=== PATIENT | male | born 1940 | race Caucasian/White ===

== ENCOUNTER 2018-06-11 14:00 | Emergency (ER) | payer MEDICARE, OTHER ==
[~2018-06-11] VITALS: Ht 170.2 cm; Wt 77.1 kg
--- OUTSIDE RECORDS SUMMARY | ~2018-06-11 | XMS | Encounter Summary ---
Demographics + + + | Address | [address] | | | [place] [address] | + + + | Home Phone | | + + + | Preferred Language | Unknown | + + + | Marital Status | | + + + | Islam Affiliation | Unknown | + + + | Race | Unknown | + + + | Ethnic Group | Unknown | + + + Author + + + | Author | [facility] | | | and [place] | + + + | Organization | [facility] | | | and [place] | + + + | Address | Unknown | + + + | Phone | Unavailable | + + + Support + + + + + | Name | Relationship | Address | Phone | + + + + + | Guera Stark | ECON | [address] | | | | | [place] | | | | | [address] | | + + + + + Care Team Providers + +------+ + | Care Silk Screen Processor Name | Role | Phone | + +------+ + | Cesar Ojeda MD | PCP | | + +------+ + Reason for Visit + + + | Reason | Comments | + + + | Follow-up | | + + + | Coronary Artery | | | Disease | | + + + Encounter Details +--------+---------+ + + + | Date | Type | Department | Care Team | Description | +--------+---------+ + + + | 03/29/ | Office | [facility] | Franck Tsai MD | Coronary artery | | 2018 | Visit | CARDIOLOGY [address] | | disease involving | | | | [place], | | [place] coronary | | | | [place] [address] | | artery of [place] | | | | [phone] | | heart without angina | | | | | | pectoris (Primary | | | | | | Dx) | +--------+---------+ + + + Social History + +-------+ [...] + +---------+ + | Alcohol Use | Drinks/We | oz/Week | Comments | | | ek | | | + + +---------+ + | No | | | | + + +---------+ + + + + | Sex Assigned at | Date Recorded | | | | + + + | Not on file | | + + + as of this encounter Last Filed Vital Signs + + + + | Vital Sign | Reading | Time Taken | + + + + | Blood Pressure | 150/80 | 03/29/2018935 PDT | + + + + | Pulse | 58 | 03/29/2018935 PDT | + + + + | Temperature | - | - | + + + + | Respiratory Rate | 16 | 03/29/2018935 PDT | + + + + | Oxygen Saturation | - | - | + + + + | Inhaled Oxygen | - | - | | Concentration | | | + + + + | Weight | 78 kg (171 lb 15.3 | 03/29/2018935 PDT | | | oz) | | + + + + | Height | 170.2 cm (5' 7") | 03/29/2018935 PDT | + + + + | Body Mass Index | 26.93 | 03/29/2018935 PDT | + + + + in this encounter Functional Status + + [...] | | | + + + + as of this encounter Instructions Patient Instructions - Priscilla Durant RN - 03/29/2018 1000 PDT Increase Lisinopril to 20mg twice daily Finish out current supply of Clopidogrel (Plavix) then stop. Follow up appointment: 1 year - we will call you to arrange this appointment closer to the due date. Provider: Franck Tsai MD Date: Check-In Time: in this encounter Progress Notes Franck Tsai MD - 03/29/2018 1000 PDTFormatting of this note may be different from the o riginal. PATIENT NAME: Lokesh Stark : 1940: AGE: 77 y.o. PRIMARY CARE: Cesar Ojeda MD CARDIOLOGY CLINIC PROGRESS NOTE Mr. Stark presents for outpatient follow-up. Since his visit of , he has been sta ble from a cardiac viewpoint without complaints of chest pain nor dyspnea. The patient has had some bruising of his skin with minor contact. He continues on dual antiplatelet therapy and is status post LIU to right posterior sending artery in 2015 and LIU to saphenous vein graft to right coronary artery in December 2016. Lipid profile dated 11/01/17: Total cholester ol 109 triglyceride 119 HDL 30 calculated LDL 55, hemoglobin A1c 6.5 MEDICATIONS: Current Outpatient Prescriptions Medication Sig Dispense Refill artificial tears (REFRESH PLUS) 0.5% SOLN Place 1 drop into both eyes every 4 hours as needed (dry eyes). Ascorbic Acid (VITAMIN C) 1000 MG tablet Take 1,000 mg by mouth Daily. aspirin 81 mg chewable tablet Take 1 tablet by mouth Daily. 30 tablet atorvaSTATin (LIPITOR) 80 MG tablet Take 80 mg by mouth nightly. cetirizine (ZYRTEC) 10 mg tablet Take 10 mg by mouth Daily. As needed. cholecalciferol (VITAMIN D-3) 2000 UNITS TABS Take 2,000 Units by mouth Daily. ferrous sulfate 325 mg tablet Take 325 mg by mouth daily (with breakfast). fish oil 1,000 mg capsule Take 1,000 mg by mouth 2 times daily. folic acid (FOLVITE) 400 MCG tablet Take 400 mcg by mouth Daily. lisinopril (PRINIVIL, ZESTRIL) 20 mg tablet Take 1 tablet by mouth 2 times daily. 180 t ablet 3 metFORMIN (GLUCOPHAGE-XR) 500 mg 24 hr tablet Take 500 mg by mouth 2 times daily. Patie nt is taking two Twice a day Multiple Vitamins-Minerals (CENTRUM SILVER ULTRA MENS) TABS Take 1 tablet by mouth Dave y. nitroglycerin (NITROSTAT) 0.[address] 1 tablet under the tongue every 5 mya jacki as needed for Chest pain. 25 tablet 0 omeprazole (PRILOSEC) 20 mg capsule Take 20 mg by mouth every morning (before breakfast ). ONE TOUCH ULTRA TEST strip 99 ONETOUCH DELICA LANCETS FINE MISC 99 No current facility-administered medications for this visit. ALLERGIES Allergies Allergen Reactions Aspartame Hives and Nausea And Vomiting Cat Hair Extract Sensitivity Itching eye, runny nose Vegetable Oil Sensitivity Severe congestion Penicillins Other (See Comments) "I went numb all over after an injection" PHYSICAL EXAM Vital signs: Vitals: 03/29/18 0936 BP: 150/80 Pulse: 58 Resp: 16 Admit Weight: Weight: 78 kg (171 lb 15.3 oz) Current weight: Weight: 78 kg (171 lb 15.3 oz) Body mass index is 26.93 kg/m. General: Resting comfortably Chest: Clear Cardiovascular: Nondisplaced apical impulse, regular rhythm, normal S1 and S2, no S3, jugul ar venous pressure normal Gastrointestinal: Abdomen soft, non-tender, normal bowel sounds, no organomegaly nor masses . Extremities: No edema Neuro: within normal LABS: Abstract on 03/29/2018 Component Date Value Ref Range Status VLDL Cholesterol Leland 11/01/2017 3.6* 4 - 40 Final Abstract on 03/29/2018 Component Date Value Ref Range Status LDL Cholesterol, External 11/01/2017 55 Final Cholesterol, Total, External 11/01/2017 109 mg/dl Final HDL Cholesterol, External 11/01/2017 30.4 mg/dl Final Triglycerides, External 11/01/2017 119 Final Office Visit on 03/29/2018 Component Date Value Ref Range Status VENTRICULAR RATE EKG 03/29/2018 55 BPM Final ATRIAL RATE 03/29/2018 55 BPM Final P-R INTERVAL 03/29/2018 158 ms Final QRS DURATION 03/29/2018 88 ms Final Q-T INTERVAL 03/29/2018 418 ms Final Q-T INTERVAL (CORRECTED) 03/29/2018 399 ms Final P WAVE AXIS 03/29/2018 52 degrees Final QRS AXIS 03/29/2018 -48 degrees Final T AXIS 03/29/2018 141 degrees Final INTERPRETATION TEXT 03/29/2018 Final Value:Sinus bradycardia Left anterior fascicular block Inferior infarct (cited on or before 25-DEC-2016) Abnormal ECG When compared with ECG of 26-DEC-2016 04:18, Left anterior fascicular block is now present T wave inversion no longer evident in Inferior leads Confirmed by RYLAN DE SANTIAGO, [facility] ([id number]) on 03/29/2018 2:25:28 PM IMAGING: No results found. Resting ECG 03/29/18: Sinus bradycardia 55 bpm, left axis deviation, old inferior infarctio n, diffuse nonspecific T-wave abnormality, when compared with prior ECG dated 12/26/16, the inferior and anterior lateral T-wave inversions are now either flat or upright DIAGNOSES AND ASSESSMENTS: 1. Coronary atherosclerosis: The patient is clinically stable status post PCI in 2016 in [facility] 2017. We discussed the duration of dual antiplatelet therapy and given his ongoing brui sing I told the patient he may discontinue his clopidogrel when he is out of his current sup ply. He will continue on low-dose aspirin. 2. Dyslipidemia: Patient's lipid levels are at an excellent range. PLAN OR RECOMMENDATIONS: Discontinue clopidogrel after current supply is finished, continue on low-dose aspirin i ndefinitely Home blood pressure monitoring, whole food plant-based diet, aerobic exercise Clinic follow-up 1 year or sooner as needed I appreciate the opportunity of participating in the care of this patient. Franck Tsai MD, 03/30/2018 11:59 in this encounter Plan of Treatment Not on fileas of this encounter Procedures + +--------+ + + + | Procedure Name | Priori | Date/Time | Associated Diagnosis | Comments | | | ty | | | | + +--------+ + + + | ECG 12 LEAD | Routin | 03/29/2018 | Coronary artery | Results for this | | | e | 0940 PDT | disease involving | procedure are in the | | | | | [place] coronary | results section. | | | | | artery of [place] | | | | | | heart without angina | | | | | | pectoris | | + +--------+ + + + in this encounter Results ECG 12 lead (03/29/201840) + + + + + | Component | Value | Ref Range | Performed At | + + + + + | VENTRICULAR RATE EKG | 55 | BPM | [facility] | + + + + + | ATRIAL RATE | 55 | BPM | [facility] | + + + + + | P-R INTERVAL | 158 | ms | [facility] | + + + + + | QRS DURATION | 88 | ms | [facility] | + + + + + | Q-T INTERVAL | 418 | ms | [facility] | + + + + + | Q-T INTERVAL | 399 | ms | [facility] | | (CORRECTED) | | | | + + + + + | P WAVE AXIS | 52 | degrees | [facility] | + + + + + | QRS AXIS | -48 | degrees | [facility] | + + + + + | T AXIS | 141 | degrees | [facility] | + + + + + | INTERPRETATION TEXT | Sinus bradycardiaLeft | | [facility] | | | anterior fascicular | | | | | blockInferior infarct | | | | | (cited on or before | | | | | 25-DEC-2016)Abnormal | | | | | ECGWhen compared with | | | | | ECG of 26-DEC-2016 | | | | | 04:18,Left anterior | | | | | fascicular block is now | | | | | presentT wave inversion | | | | | no longer evident in | | | | | Inferior leadsConfirmed | | | | | by AMINA FAGAN MD | | | | | ([id number]) on 03/29/2018 | | | | | 2:25:28 PM | | | + + + + + + + + | Narrative | Performed At | + + + | | | + + + + +---------+ + + | Performing | Address | City/State/Zipcode | Phone Number | | Organization | | | | + +---------+ + + | [facility] | | | | + +---------+ + + in this encounter Visit Diagnoses + + | Diagnosis | + + | Coronary artery disease involving [place] coronary artery of [place] heart without angina | | pectoris - Primary | + +
--- OUTSIDE RECORDS SUMMARY | ~2018-06-11 | XMS | Encounter Summary ---
Demographics + + + | Address | [address] | | | [place] [address] | + + + | Home Phone | | + + + | Preferred Language | Unknown | + + + | Marital Status | | + + + | Holiness Affiliation | Unknown | + + + | Race | Unknown | + + + | Ethnic Group | Unknown | + + + Author + + + | Author | [facility] | | | and [place] | + + + | Organization | [facility] | | | and [...] [place] | | | | | [address] | | + + + + + Care Team Providers + +------+ + | Care Insurance Claims Clerk Name | Role | Phone | + +------+ + | Cesar Ojeda MD | PCP | | + +------+ + Encounter Details +--------+ + + + + | Date | Type | Department | Care Team | Description | +--------+ + + + + | 03/29/ | Abstract | [facility] [place] | Franck Tsai MD | | | 2018 | | CARDIOLOGY [address] | | | | | | [place], | | | | | | [place] [address] | | | | | | [phone] | | | +--------+ + + + [...] + + + as of this encounter Functional Status + [...] + + + as of this encounter Plan of Treatment Not on fileas of this encounter Procedures + +--------+ + + + | Procedure Name | Priori | Date/Time | Associated Diagnosis | Comments | | | ty | | | | + +--------+ + + + | LIPID PANEL | Routin | 11/01/2017 | | Results for this | | | e | 0000 PST | | procedure are in the | | | | | | results section. | + +--------+ + + + in this encounter Results Lipid Panel (11/01/2017) + +---------+ + + | Component | Value | Ref Range | Performed At | + +---------+ + + | VLDL Cholesterol Leland | 3.6 (A) | 4 - 40 | | + +---------+ + + | Chol/HDL Ratio | | | | + +---------+ + + + + | Specimen | + + | Blood | + + in this encounter Visit Diagnoses Not on filein this encounter"
--- OUTSIDE RECORDS SUMMARY | ~2018-06-11 | XMS | Clinical Summary ---
Demographics + + + | Address | [address] | | | [place] [address] | + + + | Home Phone [...] + | Author | [facility] | | | and [place] | + + + | Organization | [facility] | | | and [...] [place] | | | | | [address] | | + + + + + Care Team Providers + +------+ + | Care Tree Feller Operator Name | Role | Phone | [...] | + + + + + + Current Medications + + +--------+---------+------+------+-------+ | Prescription | Sig. | Disp. | Refills | Star | End | Statu | | | | | | t | Date | s | | | | | | Date | | | + + +--------+---------+------+------+-------+ | fish oil 1,000 mg | Take 1,000 mg by | | | | | Activ | | capsule | mouth 2 times daily. | | | | | e | + + +--------+---------+------+------+-------+ | atorvaSTATin | Take 80 mg by mouth | | | | | Activ | | (LIPITOR) 80 MG | nightly. | | | | | e | | tablet | | | | | | | + + +--------+---------+------+------+-------+ | omeprazole | Take 20 mg by mouth | | | | | Activ | | (PRILOSEC) 20 mg | every morning | | | | | e | | capsule | (before breakfast). | | | | | | + + +--------+---------+------+------+-------+ | cetirizine | Take 10 mg by mouth | | | | | Activ | | (ZYRTEC) 10 mg | Daily. As needed. | | | | | e | | tablet | | | | | | | + + +--------+---------+------+------+-------+ | nitroglycerin | Place 1 tablet under | 25 | 0 | 09/1 | | Activ | | (NITROSTAT) 0.4 mg | the tongue every 5 | tablet | | 2/20 | | e | | SL tablet | minutes as needed | | | 16 | | | | | for Chest pain. | | | | | | + + +--------+---------+------+------+-------+ | folic acid | Take 400 mcg by | | | | | Activ | | (FOLVITE) 400 MCG | mouth Daily. | | | | | e | | tablet | | | | | | | + + +--------+---------+------+------+-------+ | cholecalciferol | Take 2,000 Units by | | | | | Activ | | (VITAMIN D-3) 2000 | mouth Daily. | | | | | e | | UNITS TABS | | | | | | | + + +--------+---------+------+------+-------+ | Ascorbic Acid | Take 1,000 mg by | | | | | Activ | | (VITAMIN C) 1000 MG | mouth Daily. | | | | | e | | tablet | | | | | | | + + +--------+---------+------+------+-------+ | Multiple | Take 1 tablet by | | | | | Activ | | Vitamins-Minerals | mouth Daily. | | | | | e | | (CENTRUM SILVER | | | | | | | | ULTRA MENS) TABS | | | | | | | + + +--------+---------+------+------+-------+ | metFORMIN | Take 500 mg by mouth | | | | | Activ | | (GLUCOPHAGE-XR) 500 | 2 times daily. | | | | | e | | mg 24 hr tablet | Patient is taking | | | | | | | | two Twice a day | | | | | | + + +--------+---------+------+------+-------+ | ferrous sulfate | Take 325 mg by mouth | | | | | Activ | | 325 mg tablet | daily (with | | | | | e | | | breakfast). | | | | | | + + +--------+---------+------+------+-------+ | artificial tears | Place 1 drop into | | | | | Activ | | (REFRESH PLUS) 0.5% | both eyes every 4 | | | | | e | | SOLN | hours as needed (dry | | | | | | | | eyes). | | | | | | + + +--------+---------+------+------+-------+ | aspirin 81 mg | Take 1 tablet by | 30 | | 03/0 | | Activ | | chewable tablet | mouth Daily. | tablet | | 8/20 | | e | | | | | | 17 | | | + + +--------+---------+------+------+-------+ | ONE TOUCH ULTRA | | | 99 | 02/1 | | Activ | | TEST strip | | | | 7/20 | | e | | | | | | 17 | | | + + +--------+---------+------+------+-------+ | MANUEL ESCALANTE | | | 99 | 02/1 | | Activ | | NORMA RAMIREZ MISC | | | | 7/20 | | e | | | | | | 17 | | | + + +--------+---------+------+------+-------+ | lisinopril | Take 1 tablet by | 180 | 3 | 06/0 | | Activ | | (PRINIVIL, ZESTRIL) | mouth 2 times daily. | tablet | | 05/11 | | e | | 20 mg tablet | | | | 18 | | | + + +--------+---------+------+------+-------+ Active Problems + + + | Problem | Noted Date | + + + | Status post insertion of drug eluting coronary artery stent | 12/28/2016 | + + + | ST elevation myocardial infarction (STEMI) of inferior wall, | 12/25/2016 | | initial episode of care (HCC) | | + + + | Dyslipidemia | 07/04/2016 | + + + | NSTEMI (non-ST elevated myocardial infarction) (HCC) | 07/03/2016 | + + + | S/P CABG x 4 | 07/03/2016 | + + + + + | Overview: MARQUEZ to LAD | | SVG to PDA | | SVG to Diag | | SVG to OMB | + + + +---+ | Malignant neoplasm of bladder (HCC) | | + +---+ | Coronary atherosclerosis | | + +---+ | Diabetes type 2, controlled (HCC) | | + +---+ | Benign essential hypertension | | + +---+ Encounters +--------+ + + + + | Date | Type | Specialty | Care Team | Description | +--------+ + + + + | 03/29/ | Office | | Franck Tsai MD | Coronary artery | | 2018 | Visit | | | disease involving | | | | | | [place] coronary | | | | | | artery of [place] | | | | | | heart without angina | | | | | | pectoris (Primary | | | | | | Dx) | +--------+ + + + + | 03/29/ | Abstract | | Franck Tsai MD | | | 2017 | | | | | +--------+ + + + + | 03/29/ | Abstract | | Franck Tsai MD | | | 2017 | | | | | +--------+ + [...] Temperature | 36.4 C (97.5 F) | 12/28/2016732 PST | + + + + | Respiratory Rate | 16 | 03/29/2018935 PDT | + + + + | Oxygen Saturation | 94% | 12/28/2016732 PST | + + + + | Inhaled [...] Body Mass Index | 26.93 | 03/29/2018 0936 PDT | + + + + Plan of Treatment + + + + + | Health Maintenance | Due Date | Last Done | Comments | + + + + + | Diabetic Eye Exam | | | | | (Bi-Annually) | 0 | | | + + + + + | Diabetic Foot Exam | | | | | | 0 | | | + + + + + | Vaccine: | | | | | Dtap/Tdap/Td (1 - | 1 | | | | Tdap) | | | | + + + + + | Colorectal Cancer | | | | | Screening | 2 | | | | (Colonoscopy) | | | | + + + + + | Vaccine: | | | | | Pneumococcal 65+ | 7 | | | | High/Highest Risk (1 | | | | | of 2 - PCV13) | | | | + + + + + | Hemoglobin A1c Q3 | | 08/01/2016 | | | Months | 7 | | | + + + + + | Vaccine: Influenza | | | | | (#1) | 8 | | | + + + + + Implants + +-------+--------+ +--------+--------+--------+ | Implanted | Type | Area | Manufacture | Device | Expira | Model | | | | | r | | tion | / | | | | | | Identi | Date | Serial | | | | | | fier | | / Lot | + +-------+--------+ +--------+--------+--------+ | Rebel Bare Metal | Stent | N/A: | BOSTON | | 03/22/ | / | | StentImplanted: Qty: 1 on | | Miguel Ángel | SCIENTIFIC | | 2018 | [id number] | | 07/03/2016 by Mi Mulligan | | lolita | GREGORY - BSCI | | | 081 | | MD Dionicio | | | | | | | + +-------+--------+ +--------+--------+--------+ | Promus PremierImplanted: Qty: | Stent | N/A: | [employer]ON | | 10/04/ | [id number] | | 1 on 12/25/2016 by Ese | Jose Antonio Del Rosario | SCIENTIFIC | | 2016 | [id number] | | Mi Greenberg MD | | ry | GREGORY - BSCI | | | 50 / | | | | | | | | /[id number] | | | | | | | | 882 | + +-------+--------+ +--------+--------+--------+ | Stent Uro Unvrs Sft 6fr 26cm | | Right: | FREDA BARBA | | | [id number] | | - [id number]: Qty: 1 | | | INCORPORATE | | | / | | on 12/11/2015 by Lyndon Romero | | Ureter | D | | | /[id number] | | MD Juancarlos | | | [...] in the | | | | | [place] coronary | results section. | | | | | artery of [place] | | | | | | heart without angina | | | | | | pectoris | | + +--------+ + + + from Last 3 Months Results ECG 12 lead (03/29/2018939) + + + + + | Component | Value | Ref Range | Performed At | + + + + + | VENTRICULAR RATE EKG | 55 | BPM | [facility] | + + + + + | ATRIAL RATE | 55 | BPM | [facility] | + + + + + | P-R INTERVAL | 158 | ms | [facility] | + + + + + | QRS DURATION | 88 | ms | [facility] | + + + + + [...] FAGAN MD | | | | | ([id number]) on 03/29/2018 | | | | | [...] | | | + +---------+ + + from Last 3 Months Insurance + +--------+ +--------+ + + | Payer | Benefi | Subscriber | Type | Phone | Address | | | t Plan | ID | | | | | | / | | | | | | | Group | | | | | + +--------+ +--------+ + + | MEDICARE | MEDICA | [id number] | Medica | [phone]- | | | | RE | | re | [phone] | | | | PART A | | | | | | | AND B | | | | | + +--------+ +--------+ + + | MODA | MODA | [id number] | Indemn | [phone] [address] [address] | | | HEALTH | | ity | [phone] | [place] [address] | | | MDCR | | | | | | | SUPPL | | | | | + +--------+ +--------+ + + + +--------+ +--------+ + + | Guarantor Name | Accoun | Relation to | Date | Phone | Billing Address | | | t Type | Patient | of | | | | | | | | | | + +--------+ +--------+ + + | MARGARITO STARK | Person | Self [birth year] | 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
--- OUTSIDE RECORDS SUMMARY | ~2018-06-11 | XMS | Clinical Summary ---
Demographics + + + | Address | [address] | | | [place] [address] | + + + | Home Phone | | + + + | Preferred Language | Unknown | + + + | Marital Status | | + + + | Jewish Affiliation | Unknown | + + + | Race | Unknown | + + + | Ethnic Group | Unknown | + + + Author + + + | Author | [facility] | | | and [place] | + + + | Organization | [facility] | | | and [place] [...] [place] | | | | | [address] | | + + + + + Care Team Providers + +------+ + | Care Sales Service Rep Name | Role | Phone | + [...] involving | | | | | | [place] coronary | | | | | | artery of [place] | | | | | | heart [...] Ángel | SCIENTIFIC | | 2018 | /[id number] | | 07/03/2016 by Mi Mulligan | | lolita | GREGORY - BSCI | | | 081 | | MD Dionicio | | | | | | | + +-------+--------+ +--------+--------+--------+ | Promus PremierImplanted: Qty: | Stent | N/A: | [place] | | 10/04/ | [id number] | | 1 on 12/25/2016 by Ese | Jose Antonio Del Rosario | SCIENTIFIC | | 2016 | [id number] | | Mi Greenberg MD | | ry | GREGORY - BSCI | | | 50 / | | | | | | | | /[id number] | | | | | | | | 882 | + +-------+--------+ +--------+--------+--------+ | Stent Uro Unvrs Sft 6fr 26cm | | Right: | FREDA BARBA | | | [id number] | | - [id number]: Qty: 1 | | | INCORPORATE | | | / | | on 12/11/2015 by Lyndon Romero | | Ureter | D | | | /[id number] | | MD Juancarlos | | | [...] in the | | | | | [place] coronary | results section. | | | | | artery of [place] | | | | | | heart [...] FAGAN MD | | | | | ([id number]) on 03/29/2018 | | | | | [...] + + | MEDICARE | MEDICA | [id number] | Medica | [phone]- | | | | RE | | re | [phone] | | | | PART A | | | | | | | AND B | | | | | + +--------+ +--------+ + + | MODA | MODA | [id number] | Indemn | [phone] [address] [address] | | | HEALTH | | ity | [address] | [place] [address] | | | MDCR | | | [...] [place] | | | [address] Home: | [phone] | | | | | | | | | | | | | [phone] | | | | | | | [phone] | | + +--------+ +--------+ + +
--- OUTSIDE RECORDS SUMMARY | ~2018-06-11 | XMS | Clinical Summary ---
Demographics + + + | Address | [address] | | | [place] [address] | + + + | Home Phone | | + + + | Preferred Language | Unknown | + + + | Marital Status | | + + + | Hoahaoism Affiliation | Unknown | + + + | Race | Unknown | + + + | Ethnic Group | Unknown | + + + Author + + + | Author | [facility] | + + + | Organization | [facility] | + + + | Address | Unknown | + + + | Phone | Unavailable | + + + Support + + + + + | Name | Relationship | Address | Phone | + + + + + | Guera Stark | ECON | [address] | | | | | [place], | | | | | [place] [address] | | + + + + + Care Team Providers + +------+ + | Care Flake Or Shred Roll Operator Name | Role | Phone | [...]
--- OUTSIDE RECORDS SUMMARY | ~2018-06-11 | XMS | Clinical Summary ---
Demographics + + + | Address | [address] | | | [place] [address] | + + + | Home Phone | | + + + | Preferred Language | Unknown | + + + | Marital Status | | + + + | Yarsanism Affiliation | Unknown | + + + | Race | Unknown | + + + | Ethnic Group | Unknown | + + + Author + + + | Author | [facility] | + + + | Organization | [facility] | + + + | Address | Unknown | + + + | Phone | Unavailable | + + + Support + + + + + | Name | Relationship | Address | Phone | + + + + + | Guera Stark | ECON | [address] | | | | | [place], | | | | | [place] [address] | | + + + + + Care Team Providers + +------+ + | Care Pellet Mill Operator Name | Role | Phone | [...]
--- OUTSIDE RECORDS SUMMARY | ~2018-06-11 | XMS | Encounter Summary ---
Demographics + + + | Address | [address] | | | [place] [address] | + + + | Home Phone | | + + + | Preferred Language | Unknown | + + + | Marital Status | | + + + | Mosque Affiliation | Unknown | + + + | Race | Unknown | + + + | Ethnic Group | Unknown | + + + Author + + + | Author | [facility] | | | and [place] | + + + | Organization | [facility] | | | and [...] [place] | | | | | [address] | | + + + + + Care Team Providers + +------+ + | Care Sleeve Maker Name | Role | Phone | [...] [place], | | | | | | [place] [address] | | | | | | [phone] | | | +--------+ + + + [...]
--- OUTSIDE RECORDS SUMMARY | ~2018-06-11 | XMS | Encounter Summary ---
Demographics + + + | Address | [address] | | | [place] [address] | + + + | Home Phone | | + + + | Preferred Language | Unknown | + + + | Marital Status | | + + + | Advent Affiliation | Unknown | + + + | Race | Unknown | + + + | Ethnic Group | Unknown | + + + Author + + + | Author | [facility] | | | and [place] | + + + | Organization | [facility] | | | and [place] | + + + | Address | Unknown | + + + | Phone | Unavailable | + + + Support + + + + + | Name | Relationship | Address | Phone | + + + + + | Guera Satrk | ECON | [address] | | | | | [place] | | | | | [address] | | + + + + + Care Team Providers + +------+ + | Care Crap Game Box Person Name | Role | Phone | + [...] [place], | | | | | | [place] [address] | | | | | | [phone] | | | +--------+ + + + [...] this | | TRIGLYCERIDES | e | 0000 PST | | procedure are in the | | | | | | results section. | + +--------+ + + + | EXTERNAL LAB: | Routin | 11/01/2017 | | Results for this | | CHOLESTEROL, HDL | e | 0000 PST | | procedure are in the | | | | | | results section. | + +--------+ + + + | EXTERNAL LAB: | Routin | 11/01/2017 | | Results for this | | CHOLESTEROL, TOTAL | e | 0000 PST | | procedure are in the | | | | | | results section. | + +--------+ + + + | EXTERNAL LAB: | Routin | 11/01/2017 | | Results for this | | CHOLESTEROL, LDL | e | 0000 PST | | procedure are in the | | | | | | results section. | + +--------+ + + + | LIPID PANEL | Routin | 11/01/2017 | | | | | e | 0000 PST | | | + +--------+ + + + in this encounter Results Lipid Panel (11/01/2017) + + | Specimen | + + | Blood | + + External Lab: Triglycerides (11/01/2017) + +-------+ + + | Component | Value | Ref Range | Performed At | + +-------+ + + | Triglycerides, | 119 | | | | External | | | | + +-------+ + + + + | Specimen | + + | Blood | + + External Lab: Cholesterol, HDL (11/01/2017) + +-------+ + + | Component | Value | Ref Range | Performed At | + +-------+ + + | HDL Cholesterol, | 30.4 | mg/dl | | | External | | | | + +-------+ + + + + | Specimen | + + | Blood | + + External Lab: Cholesterol, Total (11/01/2017) + +-------+ + + | Component | Value | Ref Range | Performed At | + +-------+ + + | Cholesterol, Total, | 109 | mg/dl | | | External | | | | + +-------+ + + + + | Specimen | + + | Blood | + + External Lab: Cholesterol, LDL (11/01/2017) + +-------+ + + | Component | Value | Ref Range | Performed At | + +-------+ + + | LDL Cholesterol, | 55 | | | | External | | | | + +-------+ + + + + | Specimen | + + | Blood | + + in this encounter Visit Diagnoses Not on filein this encounter"
--- OUTSIDE RECORDS SUMMARY | ~2018-06-11 | XMS | Encounter Summary ---
Demographics + + + | Address | [address] | | | [place] [address] | + + + | Home Phone [...] + | Author | [facility] | | | and [place] | + + + | Organization | [facility] | | | and [place] [...] [place] | | | | | [address] | | + + + + + Care Team Providers + +------+ + | Care Brush Machine Setter Name | Role | Phone | + [...] + + | 03/29/ | Office | [facility] | Franck Tsai MD | Coronary artery | | 2018 | Visit | CARDIOLOGY [address] | | disease involving | | | | [place], | | lovelock coronary | | | | [place] [address] | | artery of lovelock | | | | [phone] | | heart without angina | | [...] Inferior leads Confirmed by RYLAN DE SANTIAGO, [facility] ([id number]) on 03/29/2018 2:25:28 PM IMAGING: No results found. Resting ECG 03/29/18: Sinus bradycardia 55 bpm, left axis deviation, old inferior infarctio n, diffuse nonspecific T-wave abnormality, when compared with prior ECG dated 12/26/16, the inferior and anterior lateral T-wave inversions are now either flat or upright DIAGNOSES AND ASSESSMENTS: 1. Coronary atherosclerosis: The patient is clinically stable status post PCI in 2016 in [facility] 2017. We discussed the duration of [...] in the | | | | | lovelock coronary | results section. 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
--- OUTSIDE RECORDS SUMMARY | ~2018-06-11 | XMS | Encounter Summary ---
Demographics + + + | Address | [address] | | | [place] [address] | + + + | Home Phone [...] | Author | [facility] | | | and [place] | + + + | Organization | [facility] | | | and [place] [...] [place] | | | | | [address] | | + + + + + Care Team Providers + +------+ + | Care Venetian Blind Maker Name | Role | Phone | [...] [place], | | | | | | [place] [address] | | | | | | [phone] | | | +--------+ + + + [...]
[~2018-06-11 14:00] MED LIST: ASPIR 8181 MG PO; CENTRUM SILVER1 EAC1 PO; CIPRO500 MG PO; FENOFIBRATE160 MG PO; FISH OIL500 MG PO; FLAGYL500 MG PO; FOLIC ACID1 MG PO; GLIPIZIDE XL10 MG PO; IRON325 M1 PO; LEVAQUIN500 MG PO; LIPITOR80 MG PO; LISINOPRIL10 MG PO; LISINOPRIL20 MG PO; METFORMIN HCL500 M2 PO; METFORMIN HCL500 MG PO; NITROFURANTOIN100 M1 PO; NORCO 5-325 TA1 EACH PO; OMEGA 3-6-9 11200 M1 PO; PERCOCET 5-3251 EACH PO; PRILOSEC OTC20 MG PO; PUMPKIN SEED PO; PYRIDIUM200 MG PO; SAW PALMETTO 1160 MG PO; SAW PALMETTO80 MG PO; TAMSULOSIN HCL0.4 MG PO; VITAMIN D35000 UNI1 PO; VITAMIN D5000 UNIT PO; [UNRECOGNIZED DRUG - OTHER] PO
--- NOTE | 2018-06-12 18:22 | EKG ---
[facility] [address] [place] [address] Signed Atrial fibrillation with premature ventricular or aberrantly conducted complexes Inferior infarct , possibly acute Marked ST abnormality, possible anteroseptal subendocardial injury ACUTE MS / STEMI Consider right ventricular involvement in acute inferior infarct Abnormal ECG When compared with ECG of 02-JUL-2016 16:04, Significant changes have occurred Confirmed by MISBAH CHIRINOS DO ([id number]) on 06/12/2018 6:22:11 PM Electronically Signed By: MISBAH CHIRINOS DO 06/12/18 1822 PATIENT NAME: MARGARITO HERRING Electrocardiogram DATE OF : 44 PHYSICIAN: MISBAH CHIRINOS DO REPORT #: [id number] REPORT IS CONFIDENTIAL AND NOT TO BE RELEASED WITHOUT AUTHORIZATION
== END 2018-06-11 14:43 | disposition short-term general hospital (02) ==
LOC: ED 14:00
DX: I21.19 ST elevation (STEMI) myocardial infarction involving other coronary artery of inferior wall (principal); I47.2 Ventricular tachycardia; Z87.891 Personal history of nicotine dependence; Z88.0 Allergy status to penicillin; Z88.8 Allergy status to other drugs, medicaments and biological substances; Z79.82 Long term (current) use of aspirin; Z79.84 Long term (current) use of oral hypoglycemic drugs; Z79.899 Other long term (current) drug therapy
CPT/HCPCS: 71045; 80053; 84484; 85025; 93005; 93010; 96374; 96375; 99285; J0282; J1644

== ENCOUNTER 2019-03-23 12:59 | Emergency (ER) | payer MEDICARE, OTHER ==
[~2019-03-23] VITALS: Ht 170.2 cm; Wt 71.2 kg
--- OUTSIDE RECORDS SUMMARY | ~2019-03-23 | XMS | Clinical Summary ---
Demographics + + + | Address | [address] | | | [place] [address] | + + + | Home Phone | | + + + | Preferred Language | Unknown | + + + | Marital Status | | + + + | Methodist Affiliation | Unknown | + + + | Race | Unknown | + + + | Ethnic Group | Unknown | + + + Author + + + | Author | [facility] | + + + | Organization | [facility] | + + + | Address | Unknown | + + + | Phone | Unavailable | + + + Support + + + + + | Name | Relationship | Address | Phone | + + + + + | Guera Stark | ECON | [address] | | | | | [place], | | | | | [place] [address] | | + + + + + Care Team Providers + +------+ + | Care Physician Office Specialist Name | Role | Phone | + +------+ + | Joaquín Johnson DO | PP | | + +------+ + Allergies Not on File Current Medications Not on file Active Problems Not on file Social History + +-------+ +--------+------+ | Tobacco [...] on file | | + + + Plan of Treatment Not on file Results Not on filefrom Last 3 Months"
--- OUTSIDE RECORDS SUMMARY | ~2019-03-23 | XMS | Clinical Summary ---
Demographics + + + | Address | [address] | | | [place] [address] | + + + | Home Phone | | + + + | Preferred Language | Unknown | + + + | Marital Status | | + + + | Scientology Affiliation | Unknown | + + + | Race | Unknown | + + + | Ethnic Group | Unknown | + + + Author + + + | Author | [facility] | | | and [place] | + + + | Organization | [facility] | | | and [place] | [...] [place] | | | | | [address] | | + + + + + | Roselia Hayes | ECON | Unknown | | + + + + + Care Team Providers + +------+ + | Care Rib Cloth Knitter Name | Role | Phone | + +------+ + | Cesar Ojeda MD | PP | | + +------+ + Allergies + [...] | Penicillins | Other (See Comments) | Low | 12/10/19 | "I went numb all [...] + + + +---------+------+------+-------+ | nitroglycerin | Place 1 tablet under | 25 | 0 | 09/1 | | Activ | | (NITROSTAT) 0.4 mg | the tongue every 5 | tablet | | 2/20 | | e | | SL tablet | minutes as needed | | | 16 | | | | | for Chest pain. | | | | | | + [...] + + +---------+------+------+-------+ | metFORMIN | Take 1,500 mg by | | 0 | | | Activ | | (GLUCOPHAGE-XR) 500 | mouth Daily. | | | | | e | | mg 24 hr tablet | | | | | [...] | TEST strip | | | | 7/20 | | e | | | | | | 17 | | | + + + +---------+------+------+-------+ | ONETOUCH DELICA | | | 99 | 02/1 | | Activ | | NORMA RAMIREZ MISC | | | | 7/20 | | e | | | | | | 17 | | | + + + +---------+------+------+-------+ | lisinopril | Take 20 mg by mouth | | 0 | | | Activ | | (PRINIVIL, ZESTRIL) | Daily. | | | | | e | | 20 mg tablet | | | | | | | + + + +---------+------+------+-------+ | clopidogrel | Take 300 mg x 1 on | 34 | 5 | 12/1 | | Activ | | (PLAVIX) 75 mg | 12/14 pm then take | tablet | | 3/20 | | e | | tablet | 75 mg daily | | | 18 | | | + + + +---------+------+------+-------+ | furosemide (LASIX) | | | 0 | 01/2 | | Activ | | 20 mg tablet | | | | 20 | | e | | | | | | 19 | | | + + + +---------+------+------+-------+ | potassium chloride | | | 0 | 01/2 | | Activ | | (KLOR-CON) 10 mEq | | | | 3/20 | | e | | CR tablet | | | | 19 | | | + + + +---------+------+------+-------+ | metoprolol | Take 1 tablet by | 30 | 5 | 05/2 | | Activ | | succinate | mouth Daily. | tablet | | 8/20 | | e | | (TOPROL-XL) 25 mg 24 | | | | 19 | | | | hr tablet | | | | | | | + + + +---------+------+------+-------+ | metoprolol | Take 1 tablet by | 30 | 5 | 06/23 | 02/21 | Disco | | succinate | mouth Daily. | tablet | | 01/09 | 06/11 | ntinu | | (TOPROL-XL) 25 mg 24 | | | | 18 | 19 | ed | | hr tablet | | | [...] Benign essential hypertension | | + +---+ Encounters +--------+ + + + + | Date | Type | Specialty | Care Team | Description | +--------+ + + + + | 03/19/ | Refill | | Franck Tsai MD | Medication Refill | | 2019 | | | | | +--------+ + + + + | 02/01/ | Surgery | | Lyndon Romero MD | CYSTOSCOPY TRANS | | 2018 | | | | URETHRAL RESECTION | | | | | | BLADDER TUMOR W/ | | | | | | BILATERAL | | | | | | URETEROSCOPY | +--------+ + + + + | 02/01/ | Anesthesia | | Sanjay Maldonado | | | 2018 | Event | | MD Waqar | | +--------+ + + + + | 02/01/ | Hospital | | Lyndon Romero MD | | 2018 | Encounter | | | | +--------+ + + + + | 02/01/ | Hospital | | Lyndon Romero MD | | 2018 | Encounter | | | | +--------+ + + + + from Last 3 Months Family History + +------+ + + | Relation | Name | Status | Comments | + +------+ + + | Brother | | | | + +------+ + + | Father | | | | + +------+ + + | Mother | | | | + +------+ + + Social History + +-------+ +--------+ [...] on file | | + + + + + + + | Job Start Date | Occupation | Industry | + + + + | Not on file | Not on file | Not on file | + + + + + + + + | Travel History | Travel Start | Travel End | + + + + + + | No recent travel history available. | + + Last Filed Vital Signs + + + + | Vital Sign | Reading | Time Taken | + + + + | Blood Pressure | 115/72 | 02/01/2019 1420 PDT | + + + + | Pulse | 64 | 02/01/2019 1420 PDT | + + + + | Temperature | 36.8 C (98.2 F) | 02/01/2019 1355 PDT | + + + + | Respiratory Rate | 13 | 02/01/20191419 PDT | + + + + | Oxygen Saturation | 93% | 02/01/20191419 PDT | + + + + | Inhaled Oxygen | - | - | | Concentration | | | + + + + | Weight | 74 kg (163 lb 2.3 | 02/01/20191149 PDT | | | oz) | | + + + + | Height | 170.2 cm (5' 7") | 02/01/20191149 PDT | + + + + | Body Mass Index | 25.55 | 02/01/20191149 PDT | + + + + Plan of Treatment + + + + + | Health Maintenance | Due Date | Last Done | Comments | + + + + [...] | | | | | Pneumococcal 65+ | 7 | | | | High/Highest Risk (1 | | | | | of 2 - PCV13) | | | | + + + + + | Adult Annual | | | | | Wellness Visit | 5 | | | + + + + + | Hemoglobin A1c | | 08/01/2016 | | | Screening | 7 | | | + + + + + | Vaccine: Influenza | | | | | (Season Ended) | 9 | | | + + + + [...] Rosario | SCIENTIFIC | | 2018 | /[id number] | | 07/03/2016 by Mi Mulligan | | ry | GREGORY - BSCI | | | 081 | | MD Dionicio | | | | | | | + +-------+--------+ +--------+--------+--------+ | Promus PremierImplanted: Qty: | Stent | N/A: | [place]ON | | 10/04/ | [id number] | | 1 on 12/25/2016 by Ese, | | Miguel Ángel | SCIENTIFIC | | 2016 | [id number] | | Mi Greenberg MD | | ry | GREGORY - BSCI | | | 50 / | | | | | | | | /[id number] | | | | | | | | 882 | + +-------+--------+ +--------+--------+--------+ | Stent Uro Unvrs Sft 6fr 26cm | | Right: | FREDA | | | [id number] | | - [id number]: Qty: 1 | | | [employer] | | | / | | on 12/11/2015 by Lyndon Romero | | Phani | - FREDA | | | /[id number] | | MD Juancarlos | | | | | | 00 | + +-------+--------+ +--------+--------+--------+ Procedures + +--------+ + + + | Procedure Name | Priori | Date/Time | Associated Diagnosis | Comments | | | ty | | | | + +--------+ + + + | FL PYELOGRAM | Routin | 02/01/2019 | | Results for this | | RETROGRADE | e | 13:51 PDT | | procedure are in the | | | | | | results section. | + +--------+ + + + | ANE AIRWAY NOTE | Routin | 02/01/2019 | | Results for this | | | e | 13:11 PDT | | procedure are in the | | | | | | results section. 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 | + +--------+ + + + | PTT | Routin | 02/01/2019 | | Results for this | | | e | 12:15 PDT | | procedure are in the | | | | | | results section. | + +--------+ + + + | PROTIME INR | Routin | 02/01/2019 | | Results for this | | | e | 12:15 PDT | | procedure are in the | | | | | | results section. | + +--------+ + + + | POC GLUCOSE | Routin | 02/01/2019 | | Results for this | | | e | 12:08 PDT | | procedure are in the | | | | | | results section. | + +--------+ + + + | SURGICAL PATHOLOGY | Routin | 02/01/2019 | | Results for this | | EXAM | e | 0:00 PDT | | procedure are in the | | | | | | results section. | + +--------+ + + + | ECG - EXTERNAL SCAN | | 01/24/2019 | | Results for this | | | | 0:00 PDT | | procedure are in the | | | | | | results section. | + +--------+ + + + | LABS - EXTERNAL SCAN | | 12/25/2018 | | Results for this | | | | 0:00 PST | | procedure are in the | | | | | | results section. | + +--------+ + + + from Last 3 Months Results FL Pyelogram Retrograde (02/01/2019 13:51 PDT) + + | Specimen | + + | | + + + + + | Narrative | Performed At | + + + | This exam has been auto-finalized and the interpretation may exist | [facility] | | elsewhere in the chart. | | + + + + +---------+ + + | Performing | Address | City/State/Zipcode | Phone Number | | Organization | | | | + +---------+ + + | [facility] | | | | + +---------+ + + Airway (02/01/2019 13:11 PDT) + + + | Narrative | Performed At | + + + | Sanjay Maldonado MD 02/01/2019 13:11 Anesthesia Airway | | | Placement 02/01/2019 13:04 Preprocedure check: patient identified, | | | oxygen, airway assessed, suction, airway equipment checked and | | | patient reassessment prior to induction Mask ventilation: easy | | | with oral airway (Upper and lower dentures previously removed) | | | Attempts: 1 Airway type: laryngeal mask Size: 4 Cuffed: cuffed | | | Route, reference point: center of mouth Tube secured with: adhesive | | | tape Trauma: none Tube placement verification: bilateral chest rise, | | | equal bilateral breath sounds and carbon dioxide detection | | | Performing provider: Sanjay Maldonado MD Comments: Atraumatic | | | LMA placement with quality seat and seal. Please see | | | intraoperative grid for any additional medication documentation. | | + + + + + | Procedure Note | + + | Sanjay Maldonado MD - 02/01/2019 1311 PDT Anesthesia Airway Placement02/01/2019 | | 13:04Preprocedure check: patient identified, oxygen, airway assessed, suction, airway | | equipment checked and patient reassessment prior to inductionMask ventilation: easy | | with oral airway (Upper and lower dentures previously removed)Attempts: 1Airway type: | | laryngeal maskSize: 4Cuffed: cuffedRoute, reference point: center of mouthTube secured | | with: adhesive tapeTrauma: noneTube placement verification: bilateral chest rise, equal | | bilateral breath sounds and carbon dioxide detectionPerforming provider: Sanjay Zavaleta | | Joel MDComments: Atraumatic LMA placement with quality seat and seal.Please see | | intraoperative grid for any additional medication documentation. | |Route, reference point: center of mouth | |Tube secured with: adhesive tape | |Trauma: none | |Tube placement verification: bilateral chest rise, equal bilateral breath sounds and carbon dioxide detection | |Performing provider: Sanjay Maldonado MD | | | |Comments: Atraumatic LMA placement with quality seat and seal. | | | | | | | |Please see intraoperative grid for any additional medication documentation. | + + Extra Lavender Top Tube (02/01/2019 12:15 PDT) + +-------+ + + + | Component | Value | Ref Range | Performed | Pathologist | | | | | At | Signature | + +-------+ + + + | Extra | Done | | [facility] | | | Lavender | | | [facility] | | | Top Tube | | | MEDICAL | | | [...] + + | [facility] | [address] | [place] | [phone] | | [facility] | | [address] | | | - LABORATORY | | | | + + + + + PTT (02/01/2019 12:15 PDT) + +-------+ + + + | Component | Value | Ref Range | Performed | Pathologist | | | | | At | Signature | + +-------+ + + + | aPTT | 29 | 22 - 36 seconds | [facility] [...] + | [facility] | [address] | [place] | [phone] | | [facility] | | [address] | | | - LABORATORY | | | | + + + + + Protime INR (02/01/2019 12:15 PDT) + + + + + + | Component | Value | Ref Range | Performed | Pathologist | | | | | At | Signature | + + + + + + | Prothrombin | 14.5 (H) | 11.3 - 13.9 | [facility] | | | Time | | seconds | [facility] | | | | | | MEDICAL | | | | | | CENTER - | | | | | | LABORATORY | | + + + + + + | INR | 1.1Comment: Usual Oral | 0.9 - 1.1 | [facility] | | | | Anticoagulation | | [facility] | | | | Range: 2.0 - | | MEDICAL | | | | 3.0High Level Oral | | CENTER - | | | | Anticoagulation Range: | | LABORATORY | | | | 2.5 - 3.5 | | | | + + + + + + + + | Specimen | + + | Blood | + + + + + + + | Performing | Address | City/State/Zipcode | Phone Number | | Organization | | | | + + + + + | [facility] | [address] | [place] | [phone] | | [facility] | | [address] | | | - LABORATORY | | | | + + + + + POC Glucose (02/01/2019 12:08 PDT) + +-------+ + + + | Component | Value | Ref Range | Performed | Pathologist | | | | | At | Signature | + +-------+ + + + | Glucose, | 102 | 70 - 109 mg/dL | [facility] | | | POC [...] [address] | [place] | [phone] | | [facility] | | [address] | | | - LABORATORY | | | | + + + + + Surgical Pathology Exam (02/01/2019 0:00 PDT) + + | Specimen | + + | | + + + + + | Narrative | Performed At | + + + | SPECIMEN(S): A POSTERIOR BLADDER SPECIMEN SOURCE: DoinicioPatricia HYMAN | [facility] | | BLADDER CLINICAL HISTORY: C67.9 (malignant neoplasm of bladder, | [facility] | | unspecified) FINAL PATHOLOGIC DIAGNOSIS: Posterior bladder, | | | TURBT: - 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 - Negative for evidence of malignancy. COMMENT: | | | As part of [facility]' Quality Improvement Program, this case | | | was reviewed by another member of our pathology staff. | | | JVR:CLR:smh:C2NR MICROSCOPIC EXAMINATION: Histologic sections of | | | all submitted blocks are examined by light microscopy. These | | | findings, together with the gross examination, support the pathologic | | | diagnosis. GROSS DESCRIPTION: The specimen, received in formalin, | | | labeled "posterior bladder," consists of three 0.4 to 0.6 cm, garrett-red | | | tissue fragments. Entirely submitted in (A1). am:AMB:mrf | | | PERFORMING LABORATORY: The technical component was performed by | | | [facility], [address] [place] [address] (Medical | | | Director: Lynn Kohler MD; IA# [id number]). Professional | | | interpretation was performed by [facility] [place] | | | [address] | | | [address] (Rug Receiving Clerk: Lico Hernandez M.D.). | | | Diagnostician: Lico Hernandez MD Pathologist Electronically | | | Signed 02/04/2019 | | + + + + +---------+ + + | Performing | Address | City/State/Zipcode | Phone Number | | Organization | | | | + +---------+ + + | [facility] | | | | | [facility] | | | | + +---------+ + + ECG - EXTERNAL SCAN (01/24/2019 0:00 PDT) + + + | Narrative | Performed At | + + + | Ordered by an | | | unspecified provider. | | + + + LABS - EXTERNAL SCAN (12/25/2018 0:00 PST) + + + | Narrative | Performed At | + + + | Ordered by an | | | unspecified provider. | | + + + from Last 3 Months Insurance + +--------+ +--------+ [...] + +--------+ | MEDICARE | MEDICA | [id number] | 01/22/20 | [phone] | | Medica | | | RE | | 07-Pre | 5 | | re | | | PART A | | sent | | | | | | AND B | | | | | | + +--------+ +--------+ + +--------+ | MODA | MODA | [id number] | 10/23/19 | [phone] | [address] | Indemn | | | HEALTH | | 14-Pre | 9 | [id number] | ity | | | MDCR | | sent | | [facility], | | | | [place] | | | | [place] [address] | | + +--------+ +--------+ + +--------+ [...] al/Fam | | 1940 | [phone] | [place] | | | [place]urie | | | 8 (Home) | [address] | | | | | | [phone] | | | | | | | 1 (Work) | | + +--------+ +--------+ + + Advance Directives Patient has advance care planning documents, and code status on file. For more information, please contact:[facility] [place] [address] + + + + + | Code Status | Date | Date | Comments | | | Activated | Inactivated | | + + + + + | Full Code | 02/01/2019 | 02/01/2019 | | | | 14:26 | 18:11 | | + + + + + + + + +---+ | | | | | + + + +---+ | Full Code | 06/11/2018 | 06/13/2018 | | | | 17:25 | 13:25 | | + + + +---+ + + + +---+ | | | | | + + + +---+ | Full Code | 12/26/2016 | 12/28/2016 | | | | 10:39 | 11:58 | | + + + +---+ + + + +---+ | | | | | + + + +---+ | Full Code | 12/02/2016 | 12/02/2016 | | | | 12:32 | 16:16 | | + + + +---+ + + + +---+ | | | | | + + + +---+ | Full Code | 07/03/2016 | 07/04/2016 | | | | 13:07 | 14:40 | | + + + +---+
--- OUTSIDE RECORDS SUMMARY | ~2019-03-23 | XMS | Encounter Summary ---
Demographics + + + | Address | [address] | | | [place] [address] | + + + | Home Phone | | + + + | Preferred Language | Unknown | + + + | Marital Status | | + + + | Confucianist Affiliation | Unknown | + + + | Race | Unknown | + + + | Ethnic Group | Unknown | + + + Author + + + | Author | [facility] | | | and [place] | + + + | Organization | [facility] | | | and [place] | [...] [place] | | | | | [address] | | + + + + + | Roselia Hayes | ECON | Unknown | | + + + + + Care Team Providers + +------+ + | Care Waste Hand Name | Role | Phone | + [...] | | | | unspecified | | [address] | | | | | site (HCC) | | Phone: | | | | | Malignant | | [phone] | | | | | neoplasm of | | Fax: | | | | | urinary | | [phone] | | | | | bladder, | | | | | | | unspecified | | | | | | | site (HCC) | | | | | | | [C67.9] | | | | | | | Procedures | | | | | | | TURBT IN | | | | | | | CYSTOURETHRO | | | | | | | SCOPY,URETER | | | | | | | CATHETER | | | | | | | IN | | | | | | | [...] + + | 02/01/ | Anesthesia | [facility] | Sanjay Maldonado | | | 2019 | Event | MED CTR OR INTRA OP | MD Waqar [address] | | | | | [address] | [facility] | | | | | [place] | [place] [address] | | | | | [address] | [phone] | | | | | [phone] | | | +--------+ + + + + Anesthesia Record + + + + + | Procedure Name | Responsible | Anesthesia Start | Anesthesia Stop Time | | | Anesthesiologist | Time | | + + + + + | CYSTOSCOPY TRANS | Sanjay Zavaleta | 02/01/19 1254 | 02/01/19 1357 | | URETHRAL RESECTION | MD Joel | | | | BLADDER TUMOR W/ | | | | | BILATERAL | | | | | URETEROSCOPY | | | | | (Bilateral Bladder) | | | | + + + + + +----+---+ + + | Da | T | Event | Comment | | te | i | | | | | m | | | | | e | | | +----+---+ + + | 04 | 1 | Antibiotic | PO cipro given and charted in pre-op | | /1 | 2 | Given | | | 2/ | 3 | | | | 20 | 1 | | | | 19 | | | | +----+---+ + + | | 1 | | | | | 2 | | | | | 3 | | | | | 7 | | | +----+---+ + + | | 1 | An Checkout | Pre-use anesthesia machine/equipment checkout. | | | 2 | | | | | 4 | | | | | 4 | | | +----+---+ + + | | 1 | an anni now | | | | 2 | | | | | 5 | | | | | 2 | | | +----+---+ + + | | 1 | An Start | Reassessment prior to anesthesia induction/procedure. | | | 2 | | | | | 5 | | | | | 4 | | | +----+---+ + + | | 1 | Preoxygenat | | | | 3 | ed | | | | 0 | | | | | 0 | | | +----+---+ + + | | 1 | An | | | | 3 | Induction | | | | 0 | | | | | 2 | | | +----+---+ + + | | 1 | An | | | | 3 | Intubation | | | | 0 | | | | | 4 | | | +----+---+ + + | | 1 | [place] | | | | 3 | 43-degrees | | | | 0 | | | | | 8 | | | +----+---+ + + | | 1 | Pre-Procedu | | | | 3 | ral Timeout | | | | 1 | Completed | | | | 3 | | | +----+---+ + + | | 1 | First | | | | 3 | Inc/Proc St | | | | 1 | | | | | 5 | | | +----+---+ + + | | 1 | [place] off | | | | 3 | | | | | 5 | | | | | 1 | | | +----+---+ + + | | 1 | Breathing | | | | 3 | Spontaneous | | | | 5 | ly | | | | 1 | | | +----+---+ + + | | 1 | an stop | | | | 3 | data | | | | 5 | | | | | 1 | | | +----+---+ + + | | 1 | An Stop | Patient handed off to recovery nurse. | | | 5 | | | | | 7 | | | +----+---+ + + +------+ | Meds | +------+ + +---------+ | Name | Total | + +---------+ | fentaNYL | 100 mcg | + +---------+ | lidocaine 2% | 100 mg | + +---------+ | propofol | 250 mg | + +---------+ | ondansetron | 4 mg | + +---------+ | dexamethasone (PF) injection 10 | 5 mg | | mg/mL | | + +---------+ | ePHEDrine (AKOVAZ) injection 50 | 20 mg | | mg/mL | | + +---------+ | Phenylephrine 100mcg/mL SYRINGE | 100 mcg | + +---------+ | lactated ringers (LR) infusion | 900 mL | + +---------+ + + | [...] Removal | +--------+ + + + | Wound | 02/01/19; 1353; Incision; | 02/01/19 1353 by | | | | perineum | Junaid Gonzalez RN | | +--------+ + + + | Periph | 02/01/19; 1210; Wrist; | 02/01/19 1210 by | 02/01/19 1604 by | | eral | [id number]-pky-[id number] catheter system; | Anahi Cantu, | Chioma Sanchez, | | IV | 20 gauge, 1 1/4 in length; | RN | RN | | | Coagulation; distraction, | | | | | tolerated well; no longer | | | | | indicated; short term use; | | | | | 02/01/19; 1604 | | | +--------+ + + + | Airway | Placement Date: 02/01/19; | 02/01/19 1304 by | 02/01/19 1405 by | | | Placement Time: 1304 (created via | Sanjay Zavaleta | Elodia Bliss RN | | | procedure documentation); Mask | MD Joel | | | | Ventilation: EZ w/OA (Upper and | | | | | lower dentures previously | | | | | removed); Attempts: 1; Airway | | | | | Type: laryngeal mask; Size: 4; | | | | | Trauma: none; Placement Check: | | | | | exhaled CO2 detection device, | | | | | bilateral chest rise, breath | | | | | sounds equal bilaterally; | | | | | Removal: removed by RN; Removal | | | | | Date: 02/01/19; Removal Time: | | | | | 1405; Additional Comments: | | | | | Atraumatic LMA placement with | | | | | quality seat and seal. | | | +--------+ + + + [...] recent travel history available. | + + documented as of this encounter [...] Not on filedocumented as of this encounter Results Airway (02/01/2019 13:11 PDT) + + + [...] any additional medication documentation. | + + documented in this encounter Visit Diagnoses Not on filedocumented in this encounter Administered Medications + +--------+ +------+------+------+ | Medication Order | MAR | Action | Dose | Rate | Site | | | Action | Date | | | | + +--------+ +------+------+------+ | dexamethasone (PF) 10 mg/mL | Given | 02/02/20 | 5 mg | | | | injection Intravenous, PRN, | | 19 13:02 | | | | | Starting 02/01/19 at 1302, | | PDT | | | | | Anesthesia Intra-op | | | | | | + +--------+ +------+------+------+ +---+---+ | | | +---+---+ + +-------+ +------+---+---+ | ePHEDrine (AKOVAZ) 50 mg/mL | Given | 02/02/20 | 5 mg | | | | injection Intravenous, PRN, | | 19 13:33 | | | | | Starting 02/01/19 at 1307, | | PDT | | | | | Anesthesia Intra-op | | | | | | + +-------+ +------+---+---+ +-------+ +-------+---+---+ | Given | 02/02/20 | 5 mg | | | | | 19 13:26 | | | | | | PDT | | | | +-------+ +-------+---+---+ | Given | 02/02/20 | 10 mg | | | | | 19 13:07 | | | | | | PDT | | | | +-------+ +-------+---+---+ +---+---+ | | | +---+---+ + +-------+ +--------+---+---+ | fentaNYL (PF) injection | Given | 02/02/20 | 25 mcg | | | | Intravenous, PRN, Starting Fri | | 19 13:20 | | | | | 02/01/19 at 1300, Anesthesia | | PDT | | | | | Intra-op | | | | | | + +-------+ +--------+---+---+ +-------+ +--------+---+---+ | Given | 02/02/20 | 25 mcg | | | | | 19 13:18 | | | | | | PDT | | | | +-------+ +--------+---+---+ | Given | 02/02/20 | 50 mcg | | | | | 19 13:00 | | | | | | PDT | | | | +-------+ +--------+---+---+ +---+---+ | | | +---+---+ + +-------+ +--------+---+---+ | lidocaine (PF) 2% injection | Given | 02/02/20 | 100 mg | | | | Intravenous, PRN, Starting Fri | | 19 13:02 | | | | | 02/01/19 at 1302, Anesthesia | | PDT | | | | | Intra-op | | | | | | + +-------+ +--------+---+---+ +---+---+ | | | +---+---+ + +-------+ +------+---+---+ | ondansetron (ZOFRAN) injection | Given | 02/02/20 | 4 mg | | | | Intravenous, PRN, Starting Fri | | 19 13:02 | | | | | 02/01/19 at 1302, Anesthesia | | PDT | | | | | Intra-op | | | | | | + +-------+ +------+---+---+ +---+---+ | | | +---+---+ + +-------+ +---------+---+---+ | phenylephrine (NOLVIA-SYNEPHRINE) | Given | 02/02/20 | 100 mcg | | | | 100 mcg/mL injection | | 19 13:02 | | | | | Intravenous, PRN, Starting Fri | | PDT | | | | | 02/01/19 at 1302, Anesthesia | | | | | | | Intra-op | | | | | | + +-------+ +---------+---+---+ +---+---+ | | | +---+---+ + +-------+ +-------+---+---+ | propofol (DIPRIVAN) injection | Given | 02/02/20 | 50 mg | | | | Intravenous, PRN, Starting Fri | | 19 13:18 | | | | | 02/01/19 at 1302, Anesthesia | | PDT | | | | | Intra-op | | | | | | + +-------+ +-------+---+---+ +-------+ +--------+---+---+ | Given | 02/02/20 | 30 mg | | | | | 19 13:03 | | | | | | PDT | | | | +-------+ +--------+---+---+ | Given | 02/02/20 | 170 mg | | | | | 19 13:02 | | | | | | PDT | | | | +-------+ +--------+---+---+ +---+---+ | | | +---+---+ documented in this encounter"
--- OUTSIDE RECORDS SUMMARY | ~2019-03-23 | XMS | Encounter Summary ---
Demographics + + + | Address | [address] | | | [place] [address] | + + + | Home Phone | | + + + | Preferred Language | Unknown | + + + | Marital Status | | + + + | Pentecostalism Affiliation | Unknown | + + + | Race | Unknown | + + + | Ethnic Group | Unknown | + + + Author + + + | Author | [facility] | | | and [place] | + + + | Organization | [facility] | | | and [place] [...] [place] | | | | | [address] | | + + + + + | Roselia Hayes | ECON | Unknown | | + + + + + Care Team Providers + +------+ + | Care Commercial Lines Account Manager Name | Role | Phone | [...] | | | | unspecified | | [address] | | | | | site (HCC) | | Phone: | | | | | Malignant | | [phone] | | | | | neoplasm of | | Fax: | | | | | urinary | | [phone] | | | | | bladder, | | | | | | | unspecified | | | | | | | site (HCC) | | | | | | | [C67.9] | | | | | | | Procedures | | | | | | | TURBT [place] | | | | | | | CYSTOURETHRO | | | | | | | SCOPY,URETER | | | | | | | CATHETER | | | | | | | [place] | | | | | | | [...] + + | 02/01/ | Hospital | [facility] | Lyndon Romero MD | | | 2019 | Encounter | MED CTR OR INTRA OP | [address] [facility] | | | | | [address] | [place] | | | | | [place] | [address] | | | | | [address] | [phone] | | | | | [phone] | | | +--------+ + + + [...] + + | Pulse | 64 | 02/01/20191419 PDT | + + + [...] 74 kg (163 lb 2.3 | 02/01/2019 1150 PDT | | | oz) | | + + + + | Height | 170.2 cm (5' 7") | 02/01/2019 1150 PDT | + + + + | Body Mass Index | 25.55 | 02/01/20190 PDT | + + + + documented in this [...] lasts more than a day, a fever [id number] (38 C), or trouble urinating. Date Last Reviewed: 10/23/201619998463-4667 [employer]. [address] [place] [address], [place] [address]. All righ ts reserved. This information is [...] 1 on | 34 | 5 | 10/04/ | | | (PLAVIX) 75 mg | 12/14 pm then take | tablet | | 18 | | | tablet | 75 mg daily [...] +---------+ + + | furosemide (LASIX) | | | 0 | 11/14/19 | | | 20 mg tablet | | | | 19 | | + + + +---------+ + + | lisinopril | Take 20 mg by mouth | | 0 | | | | (PRINIVIL, ZESTRIL) | Daily. | | | | | | 20 mg tablet | | | | | | + + + +---------+ + + | metFORMIN | Take 1,500 mg by | | 0 | | | | (GLUCOPHAGE-XR) 500 | mouth Daily. | | | | | | mg [...] 5 | tablet | | 16 | | | SL tablet | minutes as [...] +---------+ + + | potassium chloride | | | 0 | 11/14/19 | | | (KLOR-CON) 10 mEq | | | | 19 | | [...] this encounter Results [place] Pyelogram Retrograde (02/01/2019 13:51 PDT) [...] [address] | [place] | [phone] | | [facility] | | [address] | | | - LABORATORY | | [...] + | [facility] | [address] | [place] | [phone] | | [facility] | | [address] | | | - LABORATORY | | [...] | | Time | | seconds | [facility] | | | | [...] [address] | [place] | [phone] | | [facility] | | [address] | | | - LABORATORY | | [...] [address] | [place] | [phone] | | 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 - Negative for evidence of malignancy. COMMENT: | | | As part of [employer]' Quality Improvement Program, this case | | | was reviewed by another member of our pathology staff. | | | JVR:TRINIDAD:anna:C2NR MICROSCOPIC EXAMINATION: Histologic sections of | | [...] component was performed by | | | [facility] [address] (Medical | | | Director: Lynn Kohler MD; CLIA# [id number]). Professional | | | interpretation [facility] performed by [facility] | | | [address] | | | [address] (Mutuel Clerk: Lico Hernandez M.D.). | | | [...] at 1215, For 1 dose, | | PDT | | | | | Pre-op | | | | | | + +--------+ + +------+------+ + +---+ | | | + +---+ | albuterol 2.5 mg/3 mL nebulizer | | | solution 2.5 mg 2.5 mg, | | | Nebulization, ONCE PRN, Wheezing, | | | Starting Mon02/01/19 at 1149, | | | For 1 [...] 1215, For 1 dose, Give | | PDT | | | | | 2 [...] < 50, Starting Fri | | | 4/12/19 at 1358, Give over 2 min. | [...] MIN PRN, | | | Pain, Starting Mon02/01/19 at | | | 1358, Maximum total [...] DBP > 100, Starting | | | 02/01/19 at 1358, Hold if HR < | | | 60. Maximum total dose 300mg. | | | Notify anesthesia if patient | | | requires more than 50mg., | | | Recovery/Phase I | | + +---+ | | | + +---+ | lactated ringers (LR) infusion | | | at 100 mL/hr, Intravenous, | | | CONTINUOUS, Starting 02/01/19 | | | at 1215, Pre-op | | + +---+ | | | + +---+ + +---------+ +---+-------+---+ | lactated ringers (LR) infusion | New Bag | 02/02/20 | | 100 | | | at 10-100 mL/hr, Intravenous, | | 19 12:31 | | mL/hr | | | CONTINUOUS, Starting 02/01/19 | | PDT | | | | | at [...]
--- OUTSIDE RECORDS SUMMARY | ~2019-03-23 | XMS | Clinical Summary ---
Demographics + + + | Address | [address] | | | [place] [address] | + + + | Home Phone | | + + + | Preferred Language | Unknown | + + + | Marital Status | | + + + | Druze Affiliation | Unknown | + + + | Race | Unknown | + + + | Ethnic Group | Unknown | + + + Author + + + | Author | [facility] | + + + | Organization | [facility] | + + + | Address | Unknown | + + + | Phone | Unavailable | + + + Support + + + + + | Name | Relationship | Address | Phone | + + + + + | Guera Stark | ECON | [address] | | | | | [place], | | | | | [place] [address] | | + + + + + Care Team Providers + +------+ + | Care Claim Technician Name | Role | Phone | [...]
--- OUTSIDE RECORDS SUMMARY | ~2019-03-23 | XMS | Encounter Summary ---
Demographics + + + | Address | [address] | | | [place] [address] | + + + | Home Phone | | + + + | Preferred Language | Unknown | + + + | Marital Status | | + + + | Restoration Affiliation | Unknown | + + + | Race | Unknown | + + + | Ethnic Group | Unknown | + + + Author + + + | Author | [facility] | | | and [place] | + + + | Organization | [facility] | | | and [place] [...] [place] | | | | | [address] | | + + + + + | Roselia Hayes | ECON | Unknown | | + + + + + Care Team Providers + +------+ + | Care Photographic Double Name | Role | Phone | + [...] | | | | unspecified | | [address] | | | | | site (HCC) | | Phone: | | | | | Malignant | | [phone] | | | | | neoplasm of | | Fax: | | | | | urinary | | [phone] | | | | | bladder, | | | | | | | unspecified | | | | | | | site (HCC) | | | | | | | [C67.9] | | | | | | | Procedures | | | | | | | TURBT [place] | | | | | | | CYSTOURETHRO | | | | | | | SCOPY,URETER | | | | | | | CATHETER | | | | | | | [place] | | | | | | | [...] + + | 02/01/ | Hospital | [facility] | Lyndon Romero MD | | | 2019 | Encounter | MED CTR XRAY [address] | [address] [facility] | | | | | [place] | [place] | | | | | [place] [address] | [address] | | | | | [phone] | [phone] | | | | | | | | +--------+ + [...] + + documented as of this encounter Medications at Time of Discharge [...]
--- OUTSIDE RECORDS SUMMARY | ~2019-03-23 | XMS | Encounter Summary ---
Demographics + + + | Address | [address] | | | [place] [address] | + + + | Home Phone | | + + + | Preferred Language | Unknown | + + + | Marital Status | | + + + | Evangelical Affiliation | Unknown | + + + | Race | Unknown | + + + | Ethnic Group | Unknown | + + + Author + + + | Author | [facility] | | | and [place] | + + + | Organization | [facility] | | | and [place] [...] [place] | | | | | [address] | | + + + + + | Roselia Hayes | ECON | Unknown | | + + + + + Care Team Providers + +------+ + | Care Booking Supervisor Name | Role | Phone | + +------+ + | Cesar Ojeda MD | PCP | | + +------+ + Reason for Visit + + + | Reason | Comments | + + + | Medication Refill | | + + + Encounter Details +--------+--------+ + + + | Date | Type | Department | Care Team | Description | +--------+--------+ + + + | 03/19/ | Refill | [facility] | Franck Tsai MD | Medication Refill | | 2018 | | CARDIOLOGY [address] | | | | | | [place], | | | | | | [place] [address] | | | | | | [phone] | | | +--------+--------+ + + + [...]
--- OUTSIDE RECORDS SUMMARY | ~2019-03-23 | XMS | Encounter Summary ---
Demographics + + + | Address | [address] | | | [place] [address] | + + + | Home Phone | | + + + | Preferred Language | Unknown | + + + | Marital Status | | + + + | Tenriism Affiliation | Unknown | + + + | Race | Unknown | + + + | Ethnic Group | Unknown | + + + Author + + + | Author | [facility] | | | and [place] | + + + | Organization | [facility] | | | and [place] [...] [place] | | | | | [address] | | + + + + + | Roselia Hayes | ECON | Unknown | | + + + + + Care Team Providers + +------+ + | Care Political Worker Name | Role | Phone | + [...] | | | | unspecified | | [address] | | | | | site (HCC) | | Phone: | | | | | Malignant | | [phone] | | | | | neoplasm of | | Fax: | | | | | urinary | | [phone] | | | | | bladder, | | | | | | | unspecified | | | | | | | site (HCC) | | | | | | | [C67.9] | | | | | | | Procedures | | | | | | | TURBT [place] | | | | | | [...] + + | 02/01/ | Hospital | [facility] | Lyndon Romero MD | | | 2019 | Encounter | MED CTR OR INTRA OP | [address] | | | | | [address] | [place] | | | | | [place] | [address] | | | | | [address] | [phone] | | | | | [phone] | | | +--------+ + + + [...] lasts more than a day, a fever [id number] (38 C), or trouble urinating. Date Last Reviewed: 10/23/201619993445-2825 [employer]. [address] [place] [address], [place] [address]. All righ ts reserved. This information is [...] [address] | [place] | [phone] | | [facility] | | [address] | | | - LABORATORY | | [...] + | [facility] | [address] | [place] | [phone] | | [facility] | | [address] | | | - LABORATORY | | [...] [address] | [place] | [phone] | | [facility] | | [address] | | | - LABORATORY | | [...] [address] | [place] | [phone] | | [facility] | | [address] | | | - LABORATORY | | | | + + + + + Surgical Pathology Exam (02/01/2019 0:00 PDT) + + | Specimen | + + | | + + + + + | Narrative | Performed At | + + + | SPECIMEN(S): A POSTERIOR BLADDER SPECIMEN SOURCE: Andrea HYMAN | [facility] | | BLADDER CLINICAL HISTORY: C67.9 (malignant neoplasm of bladder, | INCYTE | | unspecified) FINAL PATHOLOGIC DIAGNOSIS: Posterior bladder, | | | TURBT: - 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 - Negative for evidence of malignancy. COMMENT: | | | As part of [facility]' Quality Improvement Program, this case | | [...] component was performed by | | | [facility] [address] (Medical | | | Director: Lynn Kohler MD; CLIA# [id number]). Professional | | | interpretation was performed by [facility] | | | [address] | | | [address] (Simulation Specialist: Lico Hernandez M.D.). | | | Diagnostician: [...]
--- OUTSIDE RECORDS SUMMARY | ~2019-03-23 | XMS | Encounter Summary ---
Demographics + + + | Address | [address] | | | [place] [address] | + + + | Home Phone | | + + + | Preferred Language | Unknown | + + + | Marital Status | | + + + | Religion Affiliation | Unknown | + + + | Race | Unknown | + + + | Ethnic Group | Unknown | + + + Author + + + | Author | [facility] | | | and [place] | + + + | Organization | [facility] | | | and [place] [...] [place] | | | | | [address] | | + + + + + | Roselia Hayes | ECON | Unknown | | + + + + + Care Team Providers + +------+ + | Care Mechanical Planner Name | Role | Phone | [...] | | | | Malignant | | Lnydon Bauer MD | | | | | neoplasm of | | [address] | | | | | urinary | | [place] | | | | | bladder, | | [place], [place] | | | | | unspecified | | [address] | | | | | site (HCC) | | Phone: | | | | | Malignant | | [phone] | | | | | neoplasm of | | Fax: | | | | | urinary | | [phone] | | | | | bladder, | | | | | | | unspecified | | | | | | | site (HCC) | | | | | | | [C67.9] | | | | | | | Procedures | | | | | | | TURBT [place] | | | | | | | CYSTOURETHRO | | | | | | | SCOPY,URETER | | | | | | | CATHETER | | | | | | | NM | | | | | | | [...] + + | 02/01/ | Surgery | [facility] | Lyndon Romero MD | CYSTOSCOPY TRANS | | 2019 | | MED CTR OR INTRA OP | [address] | URETHRAL RESECTION | | | | [address] | [place] | BLADDER TUMOR W/ | | | | [place] | [address] | BILATERAL | | | | [address] | [phone] | URETEROSCOPY | | | | [phone] | | | +--------+---------+ + + + [...] | Oxygen Saturation | 93% | 02/01/2019 142 PDT | + + + + | [...] 02/01/20191149 PDT | + + + + documented [...] lasts more than a day, a fever [id number] (38 C), or trouble urinating. Date Last Reviewed: 10/23/201619992254-8621 [employer]. [address] [place] [address], [place] [address]. All righ ts reserved. This information is [...] documented in this encounter Results [place] Pyelogram Mt (02/01/2019 13:51 PDT) + + | Specimen [...] [address] | [place] | [phone] | | [facility] | | [address] | | | - LABORATORY | | [...] + | [facility] | [address] | [place] | [phone] | | [facility] | | [address] | | | - LABORATORY | | [...] | | | | Anticoagulation | | RASTA | | | | Range: 2.0 [...] [address] | [place] | [phone] | | [facility] | | [address] | | | - LABORATORY | | [...] [address] | [place] | [phone] | | [facility] | | [address] | | | - LABORATORY | | | | + + + + + Surgical Pathology Exam (02/01/2019 0:00 PDT) + + | Specimen | + + | | + + + + + | Narrative | Performed At | + + + | SPECIMEN(S): A POSTERIOR BLADDER SPECIMEN SOURCE: A. 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 - Negative for evidence of malignancy. COMMENT: | | | As part of [employer]' Quality Improvement Program, this case | | [...] | tissue fragments. Entirely submitted in (A1). am:HARIS:[email or web address] | | | PERFORMING LABORATORY: The technical component was performed by | | | [employer], [address] [place] [address] (Medical | | | Director: Lynn Kohler MD; IA# [id number]). Professional | | | [facility] | | | [address] | | | [address] (Wrestling Coach: Lico Hernandez M.D.). | | | Diagnostician: [...] Wheezing, | | | Starting 02/01/19 at 1358, | | | For 1 [...] ONCE PRN, | | | Wheezing, Starting 02/01/19 at | | | 1149, For 1 [...] 500 mg 500 mg, Oral, ONCE, Mon 12:31 | | | | | 02/01/19 [...] MIN PRN, | | | Pain, Starting 02/01/19 at | | | 1358, Maximum total [...] mg/mL injection PRN, Starting | | 19 13:40 | | | Site | | 02/01/19 at 1340, Intra-op | | PDT | | | | + +-------+ [...] | | CONTINUOUS, Starting Mon02/01/19 | | PDT | | | | [...]
--- OUTSIDE RECORDS SUMMARY | ~2019-03-23 | XMS | Encounter Summary ---
Demographics + + + | Address | [address] | | | [place] [address] | + + + | Home Phone | | + + + | Preferred Language | Unknown | + + + | Marital Status | | + + + | Shinto Affiliation | Unknown | + + + | Race | Unknown | + + + | Ethnic Group | Unknown | + + + Author + + + | Author | [facility] | | | and [place] | + + + | Organization | [facility] | | | and [place] [...] [place] | | | | | [address] | | + + + + + | Roselia Hayes | ECON | Unknown | | + + + + + Care Team Providers + +------+ + | Care Plant Controls Specialist Name | Role | Phone | [...] | | | | unspecified | | [address] | | | | | site (HCC) | | Phone: | | | | | Malignant | | [phone] | | | | | neoplasm of | | Fax: | | | | | urinary | | [phone] | | | | | bladder, | | | | | | | unspecified | | | | | | | site (HCC) | | | | | | | [C67.9] | | | | | | | Procedures | | | | | | | TURBT [place] | | | | | | | CYSTOURETHRO | | | | | | | SCOPY,URETER | | | | | | | CATHETER | | | | | | | AR | | | | | | | [...] + + | 02/01/ | Surgery | [facility] | Lyndon Romero MD | CYSTOSCOPY TRANS | | 2019 | | MED CTR OR INTRA OP | [address] | URETHRAL RESECTION | | | | [address] | [place] | BLADDER TUMOR W/ | | | | [place] | [address] | BILATERAL | | | | [address] | [phone] | URETEROSCOPY | | | | [phone] | | | +--------+---------+ + + + [...] lasts more than a day, a fever [id number] (38 C), or trouble urinating. Date Last Reviewed: 10/23/201619994732-2739 [employer]. [address] [place] [address], [place] [address]. All righ ts reserved. This information is [...] [address] | [place] | [phone] | | [facility] | | [address] | | | - LABORATORY | | [...] + | [facility] | [address] | [place] | [phone] | | [facility] | | [address] | | | - LABORATORY | | [...] [address] | [place] | [phone] | | [facility] | | [address] | | | - LABORATORY | | [...] [address] | [place] | [phone] | | [facility] | | [address] | | | - LABORATORY | | [...] COMMENT: | | | As part of [employer]' Quality Improvement Program, this case | | [...] component was performed by | | | [facility], [address] [place] [address] (Medical | | | Director: Lynn Kohler MD; IA# [id number]). Professional | | | [facility] | | | [address] | | | [address] (Cider Maker: Lico Hernandez M.D.). | | | Diagnostician: [...]
--- OUTSIDE RECORDS SUMMARY | ~2019-03-23 | XMS | Encounter Summary ---
Demographics + + + | Address | [address] | | | [place] [address] | + + + | Home Phone | | + + + | Preferred Language | Unknown | + + + | Marital Status | | + + + | Islam Affiliation | Unknown | + + + | Race | Unknown | + + + | Ethnic Group | Unknown | + + + Author + + + | Author | [facility] | | | and [place] | + + + | Organization | [facility] | | | and [place] [...] [place] | | | | | [address] | | + + + + + | Roselia Hayes | ECON | Unknown | | + + + + + Care Team Providers + +------+ + | Care Marker Machine Attendant Name | Role | Phone | + [...] | | | | | | [place] [address] | | | | | | [phone] | | | +--------+--------+ + + + [...]
--- OUTSIDE RECORDS SUMMARY | ~2019-03-23 | XMS | Encounter Summary ---
Demographics + + + | Address | [address] | | | [place] [address] | + + + | Home Phone | | + + + | Preferred Language | Unknown | + + + | Marital Status | | + + + | Orthodox Affiliation | Unknown | + + + | Race | Unknown | + + + | Ethnic Group | Unknown | + + + Author + + + | Author | [facility] | | | and [place] | + + + | Organization | [facility] | | | and [place] [...] [place] | | | | | [address] | | + + + + + | Roselia Hayes | ECON | Unknown | | + + + + + Care Team Providers + +------+ + | Care Advance Agent Name | Role | Phone | + [...] | | | | unspecified | | [address] | | | | | site (HCC) | | Phone: | | | | | Malignant | | [phone] | | | | | neoplasm of | | Fax: | | | | | urinary | | [phone] | | | | | bladder, | | | | | | | unspecified | | | | | | | site (HCC) | | | | | | | [C67.9] | | | | | | | Procedures | | | | | | | TURBT [place] | | | | | | | CYSTOURETHRO | | | | | | | SCOPY,URETER | | | | | | | CATHETER | | | | | | | [place] | | | | | | | [...] + + | 02/01/ | Hospital | [facility] | Lyndon Romero MD | | | 2019 | Encounter | MED CTR XRAY [address] | [address] [facility] | | | | | [place] | [place] | | | | | [place] [address] | [address] | | | | | [phone] | [phone] | | | | | | | [...]
--- OUTSIDE RECORDS SUMMARY | ~2019-03-23 | XMS | Clinical Summary ---
Demographics + + + | Address | [address] | | | [place] [address] | + + + | Home Phone | | + + + | Preferred Language | Unknown | + + + | Marital Status | | + + + | Sabianist Affiliation | Unknown | + + + | Race | Unknown | + + + | Ethnic Group | Unknown | + + + Author + + + | Author | [facility] | | | and [place] | + + + | Organization | [facility] | | | and [...] [place] | | | | | [address] | | + + + + + | Roselia Hayes | ECON | Unknown | | + + + + + Care Team Providers + +------+ + | Care Inspector Motor Vehicles Name | Role | Phone | + [...] Rosario | SCIENTIFIC | | 2018 | /[id number] | | 07/03/2016 by Mi Mulligan | | ry | GREGORY - BSCI | | | 081 | | MD Dionicio | | | | | | | + +-------+--------+ +--------+--------+--------+ | Promus PremierImplanted: Qty: | Stent | N/A: | [place] | | 10/04/ | [id number] | | 1 on 12/25/2016 by Ese, | | Miguel Ángel | SCIENTIFIC | | 2016 | [id number] | | Mi Greenberg MD | | ry | GREGORY - BSCI | | | 50 / | | | | | | | | /[id number] | | | | | | | | 882 | + +-------+--------+ +--------+--------+--------+ | Stent Uro Unvrs Sft 6fr 26cm | | Right: | FREDA | | | [id number] | | - [id number]: Qty: 1 | | | [employer] | | | / | | on 12/11/2015 by Lyndon Romero | | Phani | - FREDA | | | /[id number] | | MD Juancarlos | | | [...] [address] | [place] | [phone] | | [facility] | | [address] | | | - LABORATORY | | [...] + | [facility] | [address] | [place] | [phone] | | [facility] | | [address] | | | - LABORATORY | | [...] [address] | [place] | [phone] | | [facility] | | [address] | | | - LABORATORY | | [...] [address] | [place] | [phone] | | 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 - Negative for evidence of malignancy. COMMENT: | | | As part of [email or web address]' Quality Improvement Program, this case | | [...] component was performed by | | | [employer], [address] [place] [address] (Medical | | | Director: Lynn Kohler MD; IA# [id number]). Professional | | | interpretation was performed by [facility] [place] | | | [address] | | | [address] (Senior Program Analyst: Lico Hernandez M.D.). | | | Diagnostician: [...] + +--------+ | MEDICARE | MEDICA | [id number] | 01/22/20 | [phone] | | Medica | | | RE | | 07-Pre | 5 | | re | | | PART A | | sent | | | | | | AND B | | | | | | + +--------+ +--------+ + +--------+ | MODA | MODA | [id number] | 10/23/19 | [phone] | [address] | Indemn | | | HEALTH | | 14-Pre | 9 | [address] | ity | | | MDCR | | sent | | [facility] | | | | [place] | | | | [place] [address] | | + +--------+ +--------+ + +--------+ [...] [place] | | | 8 (Home) | [address] | | | | | | [phone] | | | | | | | 1 (Work) | | + +--------+ +--------+ + + Advance Directives Patient has advance care planning documents, and code status on file. For more information, please contact:[facility] [place] [address] + + + + + | Code [...]
--- OUTSIDE RECORDS SUMMARY | ~2019-03-23 | XMS | Encounter Summary ---
Demographics + + + | Address | [address] | | | [place] [address] | + + + | Home Phone | | + + + | Preferred Language | Unknown | + + + | Marital Status | | + + + | Spiritism Affiliation | Unknown | + + + | Race | Unknown | + + + | Ethnic Group | Unknown | + + + Author + + + | Author | [facility] | | | and [place] | + + + | Organization | [facility] | | | and [place] [...] [place] | | | | | [address] | | + + + + + | Roselia Hayes | ECON | Unknown | | + + + + + Care Team Providers + +------+ + | Care Plant Health Care Technician Name | Role | Phone [...] | | | | unspecified | | [address] | | | | | site (HCC) | | Phone: | | | | | Malignant | | [phone] | | | | | neoplasm of | | Fax: | | | | | urinary | | [phone] | | | | | bladder, | | | | | | | unspecified | | | | | | | site (HCC) | | | | | | | [C67.9] | | | | | | | Procedures | | | | | | | TURBT [place] | | | | | | [...] + | 02/01/ | Anesthesia | [facility] | Sanjay Maldonado | | | 2019 | Event | MED CTR OR INTRA OP | MD Waqar [address] | | | | | [address] | [facility] | | | | | [place] | [place] [address] | | | | | [address] | [phone] | | | | | [phone] | | | +--------+ + + + [...] +----+---+ + + | | 1 | Amigo | | | | 3 | 43-degrees [...] +----+---+ + + | | 1 | Amigo off | | | | 3 | [...] 02/01/19 1604 by | | eral | [id number] catheter system; | Anahi Cantu, | Chioma [...]
[~2019-03-23 12:59] MED LIST changes: +ALL DAY ALLERGY10 M3 PO; +BRILINTA90 MG PO; +CEPHALEXIN500 MG PO; +METOPROLOL SUCC25 MG PO
[2019-03-23] MEDS ORDERED: NITROGLYCERIN0.4 MG SL (18:05)
--- NOTE | 2019-03-24 16:35 | EKG ---
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
== END 2019-03-23 18:08 | disposition home or self-care (01) ==
LOC: ED 12:59
DX: I25.10 Atherosclerotic heart disease of native coronary artery without angina pectoris (principal); M54.6 Pain in thoracic spine; I10 Essential (primary) hypertension; E11.9 Type 2 diabetes mellitus without complications; I25.2 Old myocardial infarction; Z85.51 Personal history of malignant neoplasm of bladder; Z88.0 Allergy status to penicillin; Z91.048 Other nonmedicinal substance allergy status; Z88.8 Allergy status to other drugs, medicaments and biological substances; Z91.018 Allergy to other foods; Z79.82 Long term (current) use of aspirin; Z79.899 Other long term (current) drug therapy; Z79.84 Long term (current) use of oral hypoglycemic drugs
CPT/HCPCS: 71045; 80053; 83735; 84484; 85025; 93005; 93010; 99284-25

== ENCOUNTER 2020-07-10 12:49 | Emergency (ER) | payer MEDICARE, OTHER ==
[~2020-07-10] VITALS: Ht 170.2 cm; Wt 71.2 kg
--- OUTSIDE RECORDS SUMMARY | ~2020-07-10 | XMS | Encounter Summary ---
Demographics + + + | Address | [address] | | | [place] [address] | + + + | Home Phone | | + + + | Preferred Language | Unknown | + + + | Marital Status | | + + + | Restorationism Affiliation | Unknown | + + + | Race | White | + + + | Ethnic Group | Not or | + + + Author + + + | Author | [facility] | | | and [place] | + + + | Organization | [facility] | | | and [place] | + + + | Address | Unknown | + + + | Phone | Unavailable | + + + Support + + + + + | Name | Relationship | Address | Phone | + + + + + | Guera Stark | ECON | [address] | | | | | [place] | | | | | [phone] | | + + + + + | Roselia Hayes | ECON | Unknown | | + + + + + Care Team Providers + +------+ + | Care Finish Mixer Name | Role | Phone | + +------+ + | Cesar Ojeda MD | PCP | | + +------+ + Reason for Visit Auth/Cert +--------+--------+ + + + + | Status | Reason | Specialty | Diagnoses / | Referred By | Referred To | | | | | Procedures | Contact | Contact | +--------+--------+ + + + + | | | | Diagnoses | | | | | | | CHest | | | | | | | pain chest | | | | | | | pain | | | | | | | Procedures | | | | | | | CV COR ANGIO | | | +--------+--------+ + + + + Encounter Details +--------+ + + + + | Date | Type | Department | Care Team | Description | +--------+ + + + + | 07/02/ | Hospital | [facility] | Mi Le, | NSTEMI (non-ST | | 2016 - | Encounter | MED CTR ICU [address] | MD [address] | elevated myocardial | | | | [place], | [place], [place] | infarction) (FORMERLY [facility]) | | 07/04/ | | [place] [address] | [id number] | (Primary Dx) | | 2015 | | [phone] | | | +--------+ + + + + Social History + +-------+ +--------+ + | Tobacco Use | Types | Packs/Day | Years | Date | | | | | Used | | + +-------+ +--------+ + | Former Smoker | | | | Quit: 10/23/1975 | + +-------+ +--------+ + + + +---------+ + | Alcohol Use | Drinks/Week | oz/Week | Comments | + + +---------+ + | No | | | | + + +---------+ + + + + | Sex Assigned at | Date Recorded | | | | + + + | Not on file | | + + + documented as of this encounter Last Filed Vital Signs + + + + + | Vital Sign | Reading | Time Taken | Comments | + + + + + | Blood Pressure | 166/65 | 07/04/2016 11:33 AM | | | | | PDT | | + + + + + | Pulse | 60 | 07/04/2016 11:33 AM | | | | | PDT | | + + + + + | Temperature | 36.3 C (97.3 F) | 07/04/2016 11:33 AM | | | | | PDT | | + + + + + | Respiratory Rate | 16 | 07/04/2016 11:33 AM | | | | | PDT | | + + + + + | Oxygen Saturation | 98% | 07/04/2016 11:33 AM | | | | | PDT | | + + + + + | Inhaled Oxygen | - | - | | | Concentration | | | | + + + + + | Weight | 77.5 kg (170 lb 13.7 | 07/04/2016 4:00 AM | | | | oz) | PDT | | + + + + + | Height | 170.2 cm (5' 7") | 07/02/2016 8:15 PM | | | | | PDT | | + + + + + | Body Mass Index | 26.76 | 07/02/2016 8:15 PM | | | | | PDT | | + + + + + documented in this encounter Functional Status + + + + | Functional Status | Response | Date of Assessment | + + + + | Are you deaf or do you have serious | No | 07/04/2016 | | difficulty hearing? | | | + + + + | Are you blind or do you have serious | No | 07/04/2016 | | difficulty seeing, even when wearing | | | | glasses? | | | + + + + | Do you have serious difficulty walking or | No | 07/04/2016 | | climbing stairs? (5 years old or older) | | | + + + + | Do you have difficulty dressing or bathing? | No | 07/04/2016 | | (5 years old or older) | | | + + + + | Because of a physical, mental, or emotional | No | 07/04/2016 | | condition, do you have difficulty doing | | | | errands alone such as visiting a doctor's | | | | office or shopping? [15 years old or | | | | older)] | | | + + + + + + + + | Cognitive Status | Response | Date of Assessment | + + + + | Because of a physical, mental, or emotional | No | 07/04/2016 | | condition, do you have serious difficulty | | | | concentrating, remembering, or making | | | | decisions? (5 years old or older) | | | + + + + documented as of this encounter Discharge Summaries Mi Le MD - 07/04/2016 9:48 AM PDTFormatting of this note might be different fr om the original. DISCHARGE SUMMARY PATIENT NAME/: Lokesh Stark, (1940) DATE OF ADMISSION: 07/02/2016 DATE OF DISCHARGE: 07/04/2016 DISCHARGING PHYSICIAN: Mi Le MD ADMITTING DIAGNOSIS: NSTEMI (non-ST elevated myocardial infarction) PRIMARY CARE PROVIDER: Cesar Ojeda MD DISPOSITION: Discharge to home BRIEF HOSPITAL COURSE: Please see the history and physical at the time of admission. Briefly, Mr. Strak is a [age] y.o. male who was admitted on 07/02/2016 with NSTEMI (non-ST elevated myocardial infarction ) . At admission he experienced the onset of neck and right chest pain. Pressure sensation. Presented to ER at [facility] and pain was relieved with a single NTG Transferred here w hen Troponin was found to be abnormal. He underwent CABG in 2003: MARQUEZ to the LAD SVG to the OMB SVG to the Diag SVG to the PDA He never had cardiac SX He was noted to have trigeminy when he first got to ER. He has been relatively bradycardic since admission. This has prevented him from taking bet a lenny (contraindication). He underwent cath and intervention on 07/03/16: FINDINGS: Hemodynamics: Left ventricular end-diastolic pressure (LVEDP) was 16 mm Hg. There was no gradient across the aortic valve. Left Ventriculography: Not performed Aortic Root: No AI or dissection. 2 SVG patent RCA and Diag. Left main coronary artery: Normal Left anterior descending coronary artery: 100% proximal. Fed via the MARY to the distal vessel and retrograde from the diagonal graft. Circumflex coronary artery: 100%. Fed via collaterals from the RCA graft. Right coronary artery: 100% Fed via the right graft. 99% stenosis of the PDA just beyond the insertion of the graft. PRINCESS 3 flow Post intervention: no residual stenosis. PRINCESS 3 flow Graft Angiography: MARY to the LAD: Patent. SVG to the LCX: 100% occluded SVG to the Diagonal: Excellent graft. Feeds the diagonal antegrade and the proximal LAD retrograde. competitive flow from MARY to the distal vessel SVG to the PDA: Excellent graft. 99% stenosis of the PDA just beyond the insertion of the graft CONCLUSIONS: 1. S/P bare metal stent of the PDA via the RCA graft 2. 100% SVG to the LCX 3. Total occlusion of the squaxin circulation 4. Patent MARY to the LAD 5. SVG to the Diagonal: Excellent graft. Feeds the diagonal antegrade and the proximal LAD retrograde. competitive flow from MARY to the distal vessel 6. SVG to the PDA: Excellent graft. 99% stenosis of the PDA just beyond the insertion of the graft CLINICAL IMPRESSION AND RECOMMENDATIONS Remain on Plavix 3-6 months if no bleeding - could be stopped after a month if there are issues He had no further chest discomfort after the stent implantation. He was ambulated and felt well. He had no visible hematuria. He is instructed to call if there are any problems He will try to attend a few sessions of cardiac rehab. HOSPITAL PROBLEMS: Principal Problem: NSTEMI (non-ST elevated myocardial infarction) Active Problems: Diabetes type 2, controlled Benign essential hypertension S/P CABG x 4 Dyslipidemia MASTER PROBLEM LIST: Patient Active Problem List Diagnosis Date Noted POA NSTEMI (non-ST elevated myocardial infarction) 07/03/2016 Unknown S/P CABG x 4 07/03/2016 Unknown Malignant neoplasm of bladder Yes Coronary atherosclerosis Yes Diabetes type 2, controlled Yes Benign essential hypertension Yes VITALS: Temp: 36.7 C (98.1 F) BP: 154/61 mmHg Pulse: 54 Resp: 15 SpO2: 96 % WEIGHT: Today's Weight: 77.5 kg (170 lb 13.7 oz) Admit Weight: 76.3 kg (168 lb 3.4 oz) BRIEF EXAM TODAY: General Appearance - alert, in no distress Heart - regular rate and rhythm, S1 and S2 normal, no murmur, rub, or gallop. Lungs - clear to auscultation bilaterally Musc/Skel - moves all extremities Extremities - no cyanosis. no significant edema Neurologic - no focal deficits no hematoma CONSULTATION: none DIAGNOSTIC STUDIES: Imaging: ECG: Selected Labs: Recent Labs Lab 07/04/16 0414 07/04/16 0413 07/03/16 0417 WBC 9.7 -- 7.9 HGB 14.3 -- 15.3 HCT 42.5 -- 44.6 PLT 190 -- 179 NA -- 141 144 K -- 3.3* 3.6 BUN -- 15 13 CREA -- 0.95 0.95 GLU -- 131* 137* CALCIUM -- 8.7 9.3 Recent Labs Lab 07/03/16 0417 HDL 33 LDL 41 TRIG 134 Recent Results (from the past 24 hour(s)) ECG 12 lead Collection Time: 07/03/16 10:40 Result Value Ref Range VENTRICULAR RATE EKG 54 BPM ATRIAL RATE 54 BPM P-R INTERVAL 162 ms QRS DURATION 90 ms Q-T INTERVAL 496 ms Q-T INTERVAL (CORRECTED) 470 ms P WAVE AXIS 62 degrees QRS AXIS -58 degrees T AXIS -130 degrees INTERPRETATION TEXT Sinus bradycardia Left anterior fascicular block ST & T wave abnormality, consider inferolateral ischemia Prolonged QT Abnormal ECG When compared with ECG of 03-JUL-2016 06:12, (Unconfirmed) No significant change was found Confirmed by RAMÓN DOWD MD ([id number]) on 07/03/2016 10:45:00 AM Urinalysis With Microscopic Collection Time: 07/03/16 11:05 Result Value Ref Range COLOR Straw Light Yellow, Yellow, Straw CLARITY Clear Clear PH UA 6.0 5.0-8.0 Specific Ponce 1.043 (H) 1.001-1.030 PROTEIN UA Negative Negative BLOOD UA Large (A) Negative GLUCOSE UA Negative Negative KETONES UA Negative Negative BILIRUBIN UA Negative Negative NITRITE UA Negative Negative LEUKOCYTES ESTERASE UA Negative Negative UROBILINOGEN UA Negative 0.2 mg/dL, 1.0 mg/dL, Negative WBC UA 10-15 (A) 0-2 /HPF RBC UA 50-100 (A) 0-2 /HPF SQUAMOUS EPITHELIAL UA 0-2 0-2 /LPF BACTERIA UA 1+ (A) Negative /HPF MUCUS UA Present (A) Negative /LPF Culture, Urine Collection Time: 07/03/16 14:06 Result Value Ref Range Culture No growth to date CK Total Collection Time: 07/04/16 4:13 Result Value Ref Range CK TOTAL 69 22-269 U/L Basic Metabolic Panel Collection Time: 07/04/16 4:13 Result Value Ref Range NA 141 136-149 mmol/L K 3.3 (L) 3.5-5.1 mmol/L CL 108 98-109 mmol/L CO2 23 (L) 24-31 mmol/L ANION GAP 10 3-16 mmol/L GLUCOSE 131 (H) 70-109 mg/dL BUN 15 7-18 mg/dL Creatinine, Serum/Plasma 0.95 0.60-1.30 mg/dL eGFR if not >60 >=60 mL/min/1.73m2 CALCIUM 8.7 8.3-10.5 mg/dL BUN/CREA 15.8 CBC no Differential Collection Time: 07/04/16 4:14 Result Value Ref Range WBC 9.7 4.0-11.0 K/uL RBC 5.03 4.30-5.70 M/uL Hgb 14.3 13.5-18.0 g/dL Hct 42.5 40.0-51.0 % MCV 84.5 83.0-101.0 fL MCH 28.4 28.0-35.0 pg MCHC 33.6 32.0-36.0 g/dL RDW-CV 16.7 (H) <15.0 % Platelet Count 190 140-440 K/uL MPV 9.8 fL MEDS: Discharge Medications New Medications Details clopidogrel 75 mg tablet Take 1 tablet by mouth Daily. aka: PLAVIX nitroglycerin 0.[address] 1 tablet under the tongue every 5 minutes as needed for Chest pain. aka: NITROSTAT Changed Medications Details metFORMIN 500 mg tablet Take 1 tablet by mouth 2 times daily (with breakfast & dinner). Resume on 07/05/16 What changed: additional instructions aka: GLUCOPHAGE Unchanged Medications Details aspirin 81 mg EC tablet Take 81 mg by mouth Daily. atorvaSTATin 80 MG tablet Take 80 mg by mouth nightly. aka: LIPITOR CENTRUM SILVER ULTRA WOMENS Tabs Take by mouth. cetirizine 10 mg tablet Take 10 mg by mouth Daily. As needed. aka: zyrTEC Cholecalciferol 5000 units Caps Take by mouth Daily. aka: VITAMIN D-3 ferrous fumarate 325 mg tablet Take by mouth. aka: FERRETTS fish oil 1,000 mg capsule Take 1,000 mg by mouth 3 times daily. folic acid 1 mg tablet Take 1 mg by mouth Daily. lisinopril 20 mg tablet Take 20 mg by mouth Daily. aka: PRINIVIL, ZESTRIL omeprazole 20 mg capsule Take 20 mg by mouth every morning (before breakfast). aka: priLOSEC tamsulosin 0.4 mg Caps Take 1 capsule by mouth daily (after breakfast). aka: FLOMAX PATIENT INSTRUCTIONS: ACTIVITY: greater than 30 minutes DIET: cardiac diet FOLLOW-UP: Follow up with Dr Ojeda in a week and Dr Le in 2-3 weeks Time spent on discharge planning: greater than 30 minutes Electronically signed by Mi Le MD at 09/2016 11:34 AM PDTdocumented in this encounter Discharge Instructions Instructions Mi Le MD - 07/04/2016Consider cardiac rehab Back at Home Once you re home, your goal for the first week or so is to take it easy. Then, slowly ret urn to regular activities. It may take about 4 to 8 weeks to get back to your normal routine . To ease the transition, allow yourself to rely on family and friends for support, and be e asy on yourself. Let friends and family support you Don t try to do it all alone. Ask family or friends for help. They may be glad to do some thing to show their concern. For instance: Let others help with chores, such as washing dishes, preparing meals, or buying grocerie s. Ask a family member or friend to join you in relaxing activities, such as playing games or watching movies. Be easy on yourself As you begin your recovery, don t push yourself too hard. Remember, you re healing phys ically and emotionally. Keep these tips in mind: Take your medications as prescribed by your doctor. Avoid activities that may cause chest pain or shortness of breath. Avoid exertion, excitement, and exposure to cold after a heavy meal. If you re feeling low, don t beat yourself up. Take your recovery one day at a time and don t give in to these feelings by staying in bed. Be sure to get up and get dressed e ach morning. For family and friends Help your loved one ease into recovery: Offer to drive your loved one to medical appointments. Help your loved one remember to take medications. Encourage your loved one to slowly be more independent. Spend time relaxing with your loved one. You don t have to just sit around, try going for a walk. [id number] [employer]. [address] [place] [address], [place] [address]. All righ ts reserved. This information is not intended as a substitute for professional medical care. Always follow your healthcare professional's instructions. documented in this encounter Medications at Time of Discharge + + + +---------+ + + | Medication | Sig | Dispensed | Refills | Start | End Date | | | | | | Date | | + + + +---------+ + + | atorvaSTATin | Take 80 mg by mouth | | 0 | | | | (LIPITOR) 80 MG | nightly. | | | | | | tablet | | | | | | + + + +---------+ + + | cetirizine | Take 10 mg by mouth | | 0 | | | | (ZYRTEC) 10 mg | Daily. As needed. | | | | | | tablet | | | | | | + + + +---------+ + + | fish oil 1,000 mg | Take 1,000 mg by | | 0 | | | | capsule | mouth 2 times daily. | | | | | + + + +---------+ + + | omeprazole | Take 20 mg by mouth | | 0 | | | | (PRILOSEC) 20 mg | every morning | | | | | | capsule | (before breakfast). | | | | | + + + +---------+ + + | aspirin 81 mg EC | Take 81 mg by mouth | | 0 | | | | tablet | Daily. | | | | 7 | + + + +---------+ + + | Cholecalciferol | Take by mouth | | 0 | | | | (VITAMIN D-3) 5000 | Daily. | | | | 6 | | units CAPS | | | | | | + + + +---------+ + + | clopidogrel | Take 1 tablet by | 90 | 1 | 07/04/20 | | | (PLAVIX) 75 mg | mouth Daily. | tablet | | 16 | 6 | | tablet | | | | | | + + + +---------+ + + | Ferrous Fumarate | Take by mouth. | | 0 | | | | 325 (106 FE) MG TABS | | | | | 7 | + + + +---------+ + + | folic acid 1 mg | Take 1 mg by mouth | | 0 | | | | tablet | Daily. | | | | 6 | + + + +---------+ + + | lisinopril | Take 20 mg by mouth | | 0 | | | | (PRINIVIL, ZESTRIL) | Daily. | | | | 8 | | 20 mg tablet | | | | | | + + + +---------+ + + | metFORMIN | Take 1 tablet by | 60 | 0 | 07/04/20 | | | (GLUCOPHAGE) 500 mg | mouth 2 times daily | tablet | | 16 | 7 | | tablet | (with breakfast & | | | | | | | dinner). Resume on | | | | | | | 07/05/16 | | | | | + + + +---------+ + + | Multiple | Take by mouth. | | 0 | | | | Vitamins-Minerals | | | | | 6 | | (CENTRUM SILVER | | | | | | | ULTRA WOMENS) TABS | | | | | | + + + +---------+ + + | nitroglycerin | Place 1 tablet under | 25 | 0 | 07/04/20 | | | (NITROSTAT) 0.4 mg | the tongue every 5 | tablet | | 16 | 0 | | SL tablet | minutes as needed | | | | | | | for Chest pain. | | | | | + + + +---------+ + + | tamsulosin | Take 1 capsule by | 30 | 11 | 12/13/19 | | | (FLOMAX) 0.4 mg CAPS | mouth daily (after | capsule | | 16 | 7 | | | breakfast). | | | | | + + + +---------+ + + documented as of this encounter Progress Notes Mehreen Waller PharmD - 07/04/2016 12:14 PM PDTLokesh Stark was admitted for NSTEMI and discharged home today (07/04/2016) Taught AVS education to patient. Education was focused on new medications and/or changed me dications. I explained indication, how to take, possible side effects, when to contact physi santi, and monitor parameters. The patient was encouraged to make a follow-up appointment with PCP and fruit harvester. The patient verbalized understanding of the above and all questions were answered. Pharmaci will follow-up with patient in one to two business days. Patient was provided with a tyrell nciled discharge medication list as part of their AVS instructions. Encouraged patient to sh are medication list with healthcare providers and keep list current. Mehreen Waller PHARMD 07/04/2016 12:13 documented in thi s encounter H&P Notes Mi Le MD - 07/03/2016 6:43 AM PDTNo problems overnight Exam unchanged Labs show increased troponin ECG reviewed All questions answered Mi Mosquera MD - 07/02/2016 9:30 PM PDT Admission H&P Referring Provider: Dr Montes Primary Care: Dr Ojeda Reason for Admission: NSTEMI 07/02/2016 Lokesh Stark is a 75 y.o. male History of Present Illness: Experienced the onset of neck and right chest pain. Pressure sensation. Presented to ER a felisa Schwab and pain was relieved with a single NTG Transferred here when Troponin was fou nd to be abnormal. He underwent CABG in 2003: MARQUEZ to the LAD SVG to the OMB SVG to the Diag SVG to the PDA He never had cardiac SX He was noted to have trigeminy when he first got to ER. 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 Current Outpatient Prescriptions on File Prior to Encounter Medication Sig Dispense Refill aspirin 81 mg EC tablet Take 81 mg by mouth Daily. atorvaSTATin (LIPITOR) 80 MG tablet Take 80 mg by mouth nightly. cetirizine (ZYRTEC) 10 mg tablet Take 10 mg by mouth Daily. As needed. Cholecalciferol (VITAMIN D-3) 5000 units CAPS Take by mouth Daily. Ferrous Fumarate 325 (106 FE) MG TABS Take by mouth. fish oil 1,000 mg capsule Take 1,000 mg by mouth 3 times daily. folic acid 1 mg tablet Take 1 mg by mouth Daily. lisinopril (PRINIVIL, ZESTRIL) 20 mg tablet Take 20 mg by mouth Daily. metFORMIN (GLUCOPHAGE) 500 mg tablet Take 500 mg by mouth 2 times daily (with breakfast & dinner). Multiple Vitamins-Minerals (CENTRUM SILVER ULTRA WOMENS) TABS Take by mouth. omeprazole (PRILOSEC) 20 mg capsule Take 20 mg by mouth every morning (before breakfast ). tamsulosin (FLOMAX) 0.4 mg CAPS Take 1 capsule by mouth daily (after breakfast). 30 cap aroldo 11 Allergies: Allergies Allergen Reactions Aspartame Hives and Nausea And Vomiting Penicillins Other (See Comments) "I went numb all over after an injection" Family History: Mother CABG Social History: Social History Social History Marital Status: Spouse Name: N/A Number of Children: N/A Years of Education: N/A Occupational History Not on file. Social History Main Topics Smoking status: Former Smoker Quit date: 10/23/1975 Smokeless tobacco: Not on file Alcohol Use: No Drug Use: No Sexual Activity: Not on file Other Topics Concern Not on file Social History Narrative Review of Systems: Followed for bladder cancer Q 3 months Told he needed to be on prilosec rest of life Other than the blood in urine no bleeding Reviewed 10 systems, all were negative except as listed in HPI PHYSICAL EXAM Latest VS: BP 156/74 mmHg | Pulse 71 | Temp(Src) 36 C (96.8 F) (Oral) | Resp 20 | SpO2 97% Vital sign ranges for last 24hrs: Input and output for last 24hrs: Temp: [36 C (96.8 F)] 36 C (96.8 F) Pulse: [71] 71 Resp: [20] 20 BP: (156)/(74) 156/74 mmHg SpO2 Av % Min: 97 % Max: 97 % There is no weight on file to calculate BMI.; There is no height or weight on file to calcu late BSA. Constitutional General appearance: well developed, well nourished, well groomed, no acute distress Cardiovascular Palp/Percussion: PMI in 5th ICS at MCL; no lifts, thrills, palp S3 or S4. Auscultation: normal S1 S2; no gallop or rub or click Murmur: none Carotid arteries: pulses 2+, symmetric, no bruits Abdominal aorta: no enlargement or bruits Femoral arteries: pulses 2+, symmetric Pedal pulses: pulses 2+, symmetric Peripheral circulation: no cyanosis, clubbing, edema, or varicosities Gastrointestinal Abdomen: soft, non-tender, no masses Liver and spleen: no enlargement Mental Status/Neurological Orientation: oriented to time, place, and person Affect/Mood: no depression, anxiety, or agitation Respiratory Respiratory effort: no intercostal retractions or use of accessory muscles Auscultation: no rales, rhonchi, or wheezes Eyes Conjunctiva & lids: conjunctiva and lids normal Ears, Nose and Throat Lips: no pallor or cyanosis Neck Jugular veins: no significant JVD; no a, v or rogers waves Extremities Digits and nails: no clubbing, cyanosis, or petechiae Skin Inspection: no visible rashes, lesions, or ulcerations Test Results: Recent Results (from the past 24 hour(s)) POC Glucose Result Value Ref Range Glucose, POC 133 70-150 mg/dL ECG 12 lead Result Value Ref Range INTERPRETATION TEXT Not Confirmed CXR negative ECG LAFB NSST changes Impression/Plan: 1. NSTEMI 2. H/O CABG 3. Dyslipidemia Plan: Cardiac cath Risks and benefits reviewed The risk and benefits of appropriate heart catheterization with possible balloons, stents, or other appropriate techniques as indicated were discussed. It was explained that the pos sible complications include but are not limited to , stroke, heart arrest,heart attack, emergency surgery, blood vessel injury possibly requiring surgical repair, site infection, acute kidney failure, and/or reactions to iodine contrast agent or sedatives. [facility] risk s include re-blockage (restenosis) and stent thrombosis (clotting). The patient's questio ns were answered, and the patient wishes to proceed. Patient is appropriate for conscious se dation. Types of stents were discussed and bare metal would be most appropriate for this patient. documented in this e ncounter Procedure Notes Mi Le MD - 07/04/2016 10:01 AM PDTAssociated Order(s): CV CARDIAC PROCEDUREForm atting of this note might be different from the original. Lokesh Stark is a 75 y.o. male patient. No diagnosis found. Past Medical History Diagnosis Date Diabetes (HCC) Dysuria Hydronephrosis with ureteral stricture Malignant neoplasm of ureter (HCC) Urinary frequency Malignant neoplasm of bladder (HCC) Coronary atherosclerosis Diabetes type 2, controlled (HCC) Benign essential hypertension Full dentures Blood pressure 154/61, pulse 54, temperature 36.7 C (98.1 F), temperature source Oral, resp. rate 15, height 1.702 m (5' 7"), weight 77.5 kg (170 lb 13.7 oz), SpO2 96 %. CV Cardiac Procedure Date/Time: 07/04/2016 10:01 Performed by: MI LE Authorized by: MI LE Consent: Verbal consent obtained. Written consent obtained. Risks and benefits: risks, benefits and alternatives were discussed Consent given by: patient Patient understanding: patient states understanding of the procedure being performed Patient consent: the patient's understanding of the procedure matches consent given Procedure consent: procedure consent matches procedure scheduled Relevant documents: relevant documents present and verified Test results: test results available and properly labeled Site marked: the operative site was marked Imaging studies: imaging studies available Required items: required blood products, implants, devices, and special equipment available Patient identity confirmed: verbally with patient and arm band Time out: Immediately prior to procedure a "time out" was called to verify the correct elkin ent, procedure, equipment, support worker and site/side marked as required. Preparation: Patient was prepped and draped in the usual sterile fashion. Local anesthesia used: yes Patient sedated: yes Sedation type: moderate (conscious) sedation Vitals: Vital signs were monitored during sedation. Patient tolerance: Patient tolerated the procedure well with no immediate complications Mi Le 07/04/2016 LEFT CARDIAC CATHETERIZATION AND CORONARY INTERVENTION REPORT PATIENT NAME: Lokesh Stark DATE OF : 1940 DATE OF PROCEDURE: 07/04/2016 PRIMARY CARE PROVIDER: Cesar Ojeda MD SENIOR TECHNICAL ANALYST: Dr. Mi Le MD, [facility], [facility] PRE-PROCEDURE DIAGNOSIS: NSTEMI POST-PROCEDURE DIAGNOSIS: PTCA and Bare metal stent of the RCA via the SVG PROCEDURES PERFORMED: 1. Left Heart Catheterization for pressures 2. Coronary Angiography 3. Left Ventriculography 4. Percutaneous coronary intervention Bare metal stent of the RCA via the SVG CAD Presentation: NSTEMI Anginal Classification (within 2 weeks): unstable Anti-Anginal med (within 2 weeks): no Heart Failure (within 2 weeks): no Cardiomyopathy or LV Systolic Dysfunction: no Cardiogenic shock w/in 24 hours: no Pre-operative Evaluation Before Non-Cardiac Surgery: no Cardiac Arrest w/in 24 hours: no Evaluation of valvular heart disease: no Stress or Imaging Studies Performed: no Echocardiogram no Patient Risk factors: Age 75 y.o. advanced age (older than 55 for men, 65 for women), diabetes mellitus, dyslipidemia, hypert ension and male gender; Diabetes Mellitus on Insulin: no Prior PCI: no Estimated Creatinine Clearance: 65 mL/min (based on Cr of 0.95). kidney dx: no Chronic Lung disease: no BMI: Body mass index is 26.75 kg/(m^2). History of PAD: no Prior history of CVA: no 2. Indication For Coronary Revascularization Please indicate one of the following if PCI is performed: NSTEMI By AUC criteria, PCI is Appropriate DESCRIPTION OF PROCEDURE: Informed consent was obtained from the patient, and a time-out was performed to verify the patient's identification and planned procedure. Please refer to the computer log entry form for precise details. The patient's right groin was then prepped and draped in the usual s terile fashion, and anesthetized with 1% lidocaine. A 6 F sheath was inserted. Coronary freda ography was performed in multiple views using 6 Lithuanian JR4 and JL 4 diagnostic catheters an d LCB, the JR4 is used for MARY and an RCB for the right graft. A 5 argentine pigtail catheter was advanced into the left ventricle, pressures were measured, and aortic root injection was performed. A pullback across the valve was used to assess if there was a gradient across t he aortic valve. After review of the digital images, I elected to proceed with the coronary intervention. T he patient's anticoagulation regimen consisted of Bivalirudin and Plavix. A 6 argentine MPA anthony de was used to cannulate the SVG to the right coronary vessel. The lesion was crossed with the whisper wire a Romuloe floppy would no cross and was used as a cornelio. It was pre dilated with 2.5 X 15 apex balloon. The lesion was then treated with a 2.5 X 16 Rebel And then pos t dilated with a 2.75 X 12 NC balloon. 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 Femoral angiogram showed we were too close to the bifurcation to angioseal. Sheath sutu red in place to be removed later. . There were no immediate complications. Estimated blood loss was: 20 cc. Fluro Time: 16.6 Contrast: 285 mls of Omnipaque 350 FINDINGS: Hemodynamics: Left ventricular end-diastolic pressure (LVEDP) was 16 mm Hg. There was no gradient acro ss the aortic valve. Left Ventriculography: Not performed Aortic Root: No AI or dissection. 2 SVG patent RCA and Diag. Left main coronary artery: Normal Left anterior descending coronary artery: 100% proximal. Fed via the MARY to the distal ve ssel and retrograde from the diagonal graft. Circumflex coronary artery: 100%. Fed via collaterals from the RCA graft. Right coronary artery: 100% Fed via the right graft. 99% stenosis of the PDA just beyond the insertion of the graft. PRINCESS 3 flow Post intervention: no residual stenosis. PRINCESS 3 flow Graft Angiography: MARY to the LAD: Patent. SVG to the LCX: 100% occluded SVG to the Diagonal: Excellent graft. Feeds the diagonal antegrade and the proximal LAD r etrograde. competitive flow from MARY to the distal vessel SVG to the PDA: Excellent graft. 99% stenosis of the PDA just beyond the insertion of th e graft CONCLUSIONS: 1. S/P bare metal stent of the PDA via the RCA graft 2. 100% SVG to the LCX 3. Total occlusion of the squaxin circulation 4. Patent MARY to the LAD 5. SVG to the Diagonal: Excellent graft. Feeds the diagonal antegrade and the proximal LAD retrograde. competitive flow from MARY to the distal vessel 6. SVG to the PDA: Excellent graft. 99% stenosis of the PDA just beyond the insertion of the graft CLINICAL IMPRESSION AND RECOMMENDATIONS Remain on Plavix 3-6 months if no bleeding - could be stopped after a month if there are is sues Mi Le MD, [facility], [facility] DATE/TIME: 07/04/2016 10:02 07/04/2016 10:02 Portions of this chart were created with Alset Wellen voice recognition software. Occasional wron g-word or sound-alike substitutions may have occurred due to the inherent limitations of voice recognition software. Please contact me if there are any questions regarding any a spects of the above report. documented in this e ncounter Miscellaneous Notes Plan of Care - Arlette Newell RN - 07/04/2016 11:45 AM PDTProblem: Fall Risk (Adult) Goal: Identify Related Risk Factors and Signs and Symptoms Related risk factors and signs and symptoms are identified upon initiation of Human Respons e Clinical Practice Guideline (CPG) Outcome: Adequate for Discharge Date Met: 07/04/16 Goal: Absence of Falls Patient will demonstrate the desired outcomes by discharge/transition of care. Outcome: Adequate for Discharge Date Met: 07/04/16 Problem: Acute Coronary Syndrome (ACS) (Adult) Prevent and manage potential problems includin. cardiovascular structural defects2. ches t pain (angina)3. dysrhythmia/arrhythmia4. embolism5. hemodynamic instability6. ischemia ajit ding to infarction7. pericarditis8. situational response Goal: Signs and Symptoms of Listed Potential Problems Will be Absent or Manageable (Acute C oronary Syndrome) Signs and symptoms of listed potential problems will be absent or manageable by discharge/t ransition of care (reference Acute Coronary Syndrome (ACS) (Adult) CPG). Outcome: Goal Achieved Date Met: 07/04/16 Problem: Diabetes, Type 2 (Adult) Prevent and manage potential problems includin. diabetic ketoacidosis (DKA)/hyperosmolar hyperglycemic state (HHS)2. impaired glycemic control3. hypoglycemia4. situational response Goal: Signs and Symptoms of Listed Potential Problems Will be Absent or Manageable (Diabete s, Type 2) Signs and symptoms of listed potential problems will be absent or manageable by discharge/t ransition of care (reference Diabetes, Type 2 (Adult) CPG). Outcome: Adequate for Discharge Date Met: 07/04/16 Problem: Discharge Planning Goal: Patient s discharge needs will be identified in a timely manner Outcome: Adequate for Discharge Date Met: 07/04/16 Goal: Patient will be discharged in a safe manner Outcome: Goal Achieved Date Met: 07/04/16 lan [place] - Arlette Newell RN - 07/04/2016 11:44 AM PDTProblem: Patient Care Overview (Adult) Goal: Personalization Needs & Preferences Outcome: Goal Achieved Date Met: 07/04/16 Ivan understands puncture sites examination and care, also f/u visits with PCP and return to cardiology here in 2 weeks. He is being dc'd on plavix. eICU Note - rt, Aliyah Tanner RN - 07/04/2016 11:40 AM PDTPatient provided education via video that covers wh at a blockage in a coronary artery is and describes PCI, angioplasty and stenting. Patient g iven handouts and verbal education on prescribed antiplatelet Plavix. Patient education on action of Plavix, importance of taking it and what to do if unable to take medications due t o illness.Patient also given information on where and how he can obtain this medication. Meghan juarez verbalized understanding, and all questions answered. Aliyah Rivas RN lan of [place] - Serina Herring RN - 07/04/2016 11:05 AM PDTProblem: Discharge Planning Goal: Patient will be discharged in a safe manner Discharge planning: This CM met with patient, Mr Lokesh Stark this morning. He states he lives with his in their home in [place]. He is normally very independent with his ADL's he does not need any or have any DME. He cur rently still drives. He declines the need for any home health services at this time. Dr Cesar Ojeda is his PCP and he prefers to schedule his own appts. [facility] pharmacy in [place] is where he currently get his prescriptions. Lokesh states he may be discharged home today and he is hoping so. His is on her way i nto [facility] at this time and should arrive shortly. Nor other needs noted, I did leave him with my contact information if anything else is need ed. Electronically signed by: Serina Herring RN 07/04/2016 11:05 eICU Note - Ren Barker RN - 07/03/2016 8:25 PM PDTRemoved femstop and placed tegaderm over puncture si te, CMS intact with no hematoma noted, will monitor. lan of Linda Weaver - 07/03/2016 5:36 PM PDTCM didn 't see, patient in a procedure. Electronically signed by: Lnida Corral 07/03/2016 17:36 edation Documentation - lAiyah Gifford RN - 07/03/2016 8:03 AM VASILIYSestephanie Quintanilla for vital signs, hemodynamics, and o ther documentation. See MD procedure note. [employer] times and Epic time may be different but close to the same time. Dwight will have the most accurate times. Aliyah Rivas RN lan of [place] - Ren Overton RN - 07/03/2016 7:44 AM PDTProblem: Patient Care Overview (Adult) Goal: Care Team Goals & Evaluation PROBLEM-RELATED GOALS: STRATEGY TO ACHIEVE GOALS: RESTRAINT-RELATED GOALS: STRATEGIES TO ACHIEVE RESTRAINT GOALS: Outcome: Unchanged Goal Evaluation:Chest pain, planned heart cath at 0800, head to labeling machine operator at 0730, trop this AM 1+, heparin gtt 900 units/hr, ptt 64, next draw 0400, sinus ricardo in 50s-60s, no chest p ain since here consent in ghost chart documented in this encounter Plan of Treatment Not on filedocumented as of this encounter Procedures + +--------+ + + + | Procedure Name | Priori | Date/Time | Associated Diagnosis | Comments | | | ty | | | | + +--------+ + + + | CBC NO DIFFERENTIAL | Routin | 07/04/2016 | | Results for this | | | e | 4:14 AM | | procedure are in the | | | | PDT | | results section. | + +--------+ + + + | CK TOTAL | Routin | 07/04/2016 | | Results for this | | | e | 4:13 AM | | procedure are in the | | | | PDT | | results section. | + +--------+ + + + | BASIC METABOLIC | Routin | 07/04/2016 | | Results for this | | PANEL | e | 4:13 AM | | procedure are in the | | | | PDT | | results section. | + +--------+ + + + | CULTURE, URINE | Routin | 07/03/2016 | | Results for this | | | e | 2:06 PM | | procedure are in the | | | | PDT | | results section. | + +--------+ + + + | CULTURE, MRSA | Routin | 07/03/2016 | | Results for this | | | e | 11:05 AM | | procedure are in the | | | | PDT | | results section. | + +--------+ + + + | URINALYSIS WITH | STAT | 07/03/2016 | | Results for this | | MICROSCOPIC | | 11:05 AM | | procedure are in the | | | | PDT | | results section. | + +--------+ + + + | ECG 12 LEAD | Routin | 07/03/2016 | | Results for this | | | e | 10:40 AM | | procedure are in the | | | | PDT | | results section. | + +--------+ + + + | CV COR ANGIO | Routin | 07/03/2016 | | Results for this | | | e | 9:48 AM | | procedure are in the | | | | PDT | | results section. | + +--------+ + + + | ECG 12 LEAD | Routin | 07/03/2016 | | Results for this | | | e | 6:12 AM | | procedure are in the | | | | PDT | | results section. | + +--------+ + + + | LIPID PANEL | Routin | 07/03/2016 | | Results for this | | | e | 4:17 AM | | procedure are in the | | | | PDT | | results section. | + +--------+ + + + | TROPONIN I | Routin | 07/03/2016 | | Results for this | | | e | 4:17 AM | | procedure are in the | | | | PDT | | results section. | + +--------+ + + + | PTT | Routin | 07/03/2016 | | Results for this | | | e | 4:17 AM | | procedure are in the | | | | PDT | | results section. | + +--------+ + + + | CBC NO DIFFERENTIAL | Routin | 07/03/2016 | | Results for this | | | e | 4:17 AM | | procedure are in the | | | | PDT | | results section. | + +--------+ + + + | BASIC METABOLIC | Routin | 07/03/2016 | | Results for this | | PANEL | e | 4:17 AM | | procedure are in the | | | | PDT | | results section. | + +--------+ + + + | TROPONIN I | Routin | 07/02/2016 | | Results for this | | | e | 9:31 PM | | procedure are in the | | | | PDT | | results section. | + +--------+ + + + | PTT | STAT | 07/02/2016 | | Results for this | | | | 9:31 PM | | procedure are in the | | | | PDT | | results section. | + +--------+ + + + | HEPATIC FUNCTION | Routin | 07/02/2016 | | Results for this | | PANEL | e | 9:31 PM | | procedure are in the | | | | PDT | | results section. | + +--------+ + + + | ECG 12 LEAD | STAT | 07/02/2016 | | Results for this | | | | 8:34 PM | | procedure are in the | | | | PDT | | results section. | + +--------+ + + + | POC GLUCOSE | Routin | 07/02/2016 | | Results for this | | | e | 8:12 PM | | procedure are in the | | | | PDT | | results section. | + +--------+ + + + | IMAGING REPORT - | | 07/02/2016 | | Results for this | | EXTERNAL SCAN | | 12:00 AM | | procedure are in the | | | | PDT | | results section. | + +--------+ + + + | LABS - EXTERNAL SCAN | | 07/02/2016 | | Results for this | | | | 12:00 AM | | procedure are in the | | | | PDT | | results section. | + +--------+ + + + | ECG - EXTERNAL SCAN | | 07/02/2016 | | Results for this | | | | 12:00 AM | | procedure are in the | | | | PDT | | results section. | + +--------+ + + + documented in this encounter Results CBC no Differential (07/04/2016 4:14 AM PDT) + + + + + + | Component | Value | Ref Range | Performed | Pathologist | | | | | At | Signature | + + + + + + | White Blood | 9.7 | 4.0 - 11.0 K/uL | [facility] | | | Cells | | | [facility] | | | | | | [facility] | | | | | | [facility] - | | | | | | LABORATORY | | + + + + + + | Red Blood | 5.03 | 4.30 - 5.70 | [facility] | | | Cells | | M/uL | [facility] | | | | | | [facility] | | | | | | C[facility] - | | | | | | LABORATORY | | + + + + + + | Hemoglobin | 14.3 | 13.5 - 18.0 | [facility] | | | | | g/dL | [facility] | | | | | | MEDICAL | | | | | | C[facility] - | | | | | | LABORATORY | | + + + + + + | Hematocrit | 42.5 | 40.0 - 51.0 % | [facility] | | | | | | [facility] | | | | | | [facility] | | | | | | C[facility] - | | | | | | LABORATORY | | + + + + + + | MCV | 84.5 | 83.0 - 101.0 fL | [facility] | | | | | | [facility] | | | | | | [facility] | | | | | | C[facility] - | | | | | | LABORATORY | | + + + + + + | MCH | 28.4 | 28.0 - 35.0 pg | [facility] | | | | | | [facility] | | | | | | [facility] | | | | | | C[facility] - | | | | | | LABORATORY | | + + + + + + | MCHC | 33.6 | 32.0 - 36.0 | [facility] | | | | | g/dL | [facility] | | | | | | [facility] | | | | | | CENTER - | | | | | | LABORATORY | | + + + + + + | RDW-CV | 16.7 (H) | <15.0 % | [facility] | | | | | | [facility] | | | | | | [facility] | | | | | | C[facility] - | | | | | | LABORATORY | | + + + + + + | Platelet | 190 | 140 - 440 K/uL | [facility] | | | Count | | | [facility] | | | | | | [facility] | | | | | | C[facility] - | | | | | | LABORATORY | | + + + + + + | MPV | 9.8 | fL | [facility] | | | | | | [facility] | | | | | | [facility] | | | | | | C[facility] - | | | | | | LABORATORY | | + + + + + + + + | Specimen | + + | Blood | + + + + + + + | Performing | Address | City/State/Zipcode | Phone Number | | Organization | | | | + + + + + | [facility] | [address] | [place] | [phone] | | [facility] | | [address] | | | - LABORATORY | | | | + + + + + Basic Metabolic Panel (07/04/2016 4:13 AM PDT) + + + + + + | Component | Value | Ref Range | Performed | Pathologist | | | | | At | Signature | + + + + + + | Na | 141 | 136 - 149 | [facility] | | | | | mmol/L | [facility] | | | | | | MEDICAL | | | | | | CENTER - | | | | | | LABORATORY | | + + + + + + | K | 3.3 (L) | 3.5 - 5.1 | [facility] | | | | | mmol/L | [facility] | | | | | | MEDICAL | | | | | | CENTER - | | | | | | LABORATORY | | + + + + + + | Cl | 108 | 98 - 109 mmol/L | [facility] | | | | | | [facility] | | | | | | MEDICAL | | | | | | CENTER - | | | | | | LABORATORY | | + + + + + + | CO2 | 23 (L) | 24 - 31 mmol/L | [facility] | | | | | | [facility] | | | | | | MEDICAL | | | | | | CENTER - | | | | | | LABORATORY | | + + + + + + | Anion Gap | 10 | 3 - 16 mmol/L | [facility] | | | | | | [facility] | | | | | | MEDICAL | | | | | | CENTER - | | | | | | LABORATORY | | + + + + + + | Glucose | 131 (H) | 70 - 109 mg/dL | [facility] | | | | | | [facility] | | | | | | MEDICAL | | | | | | CENTER - | | | | | | LABORATORY | | + + + + + + | BUN | 15 | 7 - 18 mg/dL | [facility] | | | | | | [facility] | | | | | | MEDICAL | | | | | | CENTER - | | | | | | LABORATORY | | + + + + + + | Creatinine | 0.95 | 0.60 - 1.30 | [facility] | | | | | mg/dL | [facility] | | | | | | MEDICAL | | | | | | CENTER - | | | | | | LABORATORY | | + + + + + + | eGFR, | >60Comment: GLOMERULAR | >=60 | [facility] | | | non- | FILTRATION | mL/min/1.73m2 | [facility] | | | [place] | RATE,ESTIMATED | | MEDICAL | | | | mL/min/1.96e5Cprt than | | CENTER - | | | | 60 Chronic kidney | | LABORATORY | | | | disease,if found over a | | | | | | 3-month period.Less than | | | | | | 15 Kidney failureFor | | | | | | | | | | | | Americans,multiply the | | | | | | calculated GFR by 1.21. | | | | | | | | | | + + + + + + | Calcium | 8.7 | 8.3 - 10.5 | [facility] | | | | | mg/dL | [facility] | | | | | | MEDICAL | | | | | | CENTER - | | | | | | LABORATORY | | + + + + + + | BUN/Creatin | 15.8 | | [facility] | | | ine Ratio | | | [facility] | | | | | | MEDICAL | | | | | | CENTER - | | | | | | LABORATORY | | + + + + + + + + | Specimen | + + | Blood | + + + + + + + | Performing | Address | City/State/Zipcode | Phone Number | | Organization | | | | + + + + + | [facility] | [address] | [place] | [phone] | | [facility] | | [address] | | | - LABORATORY | | | | + + + + + CK Total (07/04/2016 4:13 AM PDT) + +-------+ + + + | Component | Value | Ref Range | Performed | Pathologist | | | | | At | Signature | + +-------+ + + + | CK TOTAL | 69 | 22 - 269 U/L | [facility] | | | | | | [facility] | | | | | | MEDICAL | | | | | | CENTER - | | | | | | LABORATORY | | + +-------+ + + + + + | Specimen | + + | Blood | + + + + + + + | Performing | Address | City/State/Zipcode | Phone Number | | Organization | | | | + + + + + | [facility] | [address] | [place] | [phone] | | [facility] | | [address] | | | - LABORATORY | | | | + + + + + Culture, Urine (07/03/2016 2:06 PM PDT) + + + + + + | Component | Value | Ref Range | Performed | Pathologist | | | | | At | Signature | + + + + + + | Culture | No Growth | | [facility] | | | | | | [facility] | | | | | | MEDICAL | | | | | | CENTER - | | | | | | LABORATORY | | + + + + + + + + | Specimen | + + | Urine - Spot urine | | sample (specimen) | + + + + + + + | Performing | Address | City/State/Zipcode | Phone Number | | Organization | | | | + + + + + | [facility] | [address] | [place] | [phone] | | [facility] | | [address] | | | - LABORATORY | | | | + + + + + Culture, MRSA (07/03/2016 11:05 AM PDT) + + + + + + | Component | Value | Ref Range | Performed | Pathologist | | | | | At | Signature | + + + + + + | Culture | Negative for MRSA by | | [facility] | | | | chromogenic agar method | | [facility] | | | | | | MEDICAL | | | | | | CENTER - | | | | | | LABORATORY | | + + + + + + + + | Specimen | + + | Respiratory - Both | | anterior nares (body | | structure) | + + + + + + + | Performing | Address | City/State/Zipcode | Phone Number | | Organization | | | | + + + + + | [facility] | [address] | [place] | [phone] | | [facility] | | [address] | | | - LABORATORY | | | | + + + + + Urinalysis With Microscopic (07/03/2016 11:05 AM PDT) + + + + + + | Component | Value | Ref Range | Performed | Pathologist | | | | | At | Signature | + + + + + + | Color, | Straw | Light Yellow, | [facility] | | | Urine | | Yellow, Straw | [facility] | | | | | | MEDICAL | | | | | | CENTER - | | | | | | LABORATORY | | + + + + + + | Clarity, | Clear | Clear | [facility] | | | Urine | | | [facility] | | | | | | MEDICAL | | | | | | CENTER - | | | | | | LABORATORY | | + + + + + + | pH, Urine | 6.0 | 5.0 - 8.0 | [facility] | | | | | | [facility] | | | | | | MEDICAL | | | | | | CENTER - | | | | | | LABORATORY | | + + + + + + | Specific | 1.043 (H) | 1.001 - 1.030 | [facility] | | | [place], | | | [facility] | | | Urine | | | MEDICAL | | | | | | CENTER - | | | | | | LABORATORY | | + + + + + + | Protein, | Negative | Negative | [facility] | | | Urine | | | [facility] | | | | | | MEDICAL | | | | | | CENTER - | | | | | | LABORATORY | | + + + + + + | Blood, | Large (A) | Negative | [facility] | | | Urine | | | [facility] | | | | | | MEDICAL | | | | | | CENTER - | | | | | | LABORATORY | | + + + + + + | Glucose, | Negative | Negative | [facility] | | | Urine | | | [facility] | | | | | | MEDICAL | | | | | | CENTER - | | | | | | LABORATORY | | + + + + + + | Ketones, | Negative | Negative | [facility] | | | Urine | | | [facility] | | | | | | MEDICAL | | | | | | CENTER - | | | | | | LABORATORY | | + + + + + + | Bilirubin, | Negative | Negative | [facility] | | | Urine | | | [facility] | | | | | | MEDICAL | | | | | | CENTER - | | | | | | LABORATORY | | + + + + + + | Nitrite, | Negative | Negative | [facility] | | | Urine | | | [facility] | | | | | | MEDICAL | | | | | | CENTER - | | | | | | LABORATORY | | + + + + + + | Leukocyte | Negative | Negative | [facility] | | | Esterase, | | | [facility] | | | Urine | | | MEDICAL | | | | | | CENTER - | | | | | | LABORATORY | | + + + + + + | Urobilinoge | Negative | 0.2 mg/dL, 1.0 | [facility] | | | n, Urine | | mg/dL, Negative | [facility] | | | | | | MEDICAL | | | | | | CENTER - | | | | | | LABORATORY | | + + + + + + | White Blood | 10-15 (A) | 0 - 2 /HPF | [facility] | | | Cells, | | | [facility] | | | Urine | | | MEDICAL | | | | | | CENTER - | | | | | | LABORATORY | | + + + + + + | Red Blood | 50-100 (A) | 0 - 2 /HPF | [facility] | | | Cells, | | | [facility] | | | Urine | | | MEDICAL | | | | | | CENTER - | | | | | | LABORATORY | | + + + + + + | Squamous | 0-2 | 0 - 2 /LPF | [facility] | | | Epithelial | | | [facility] | | | Cells, | | | MEDICAL | | | Urine | | | CENTER - | | | | | | LABORATORY | | + + + + + + | Bacteria, | 1+ (A) | Negative /HPF | [facility] | | | Urine | | | [facility] | | | | | | MEDICAL | | | | | | CENTER - | | | | | | LABORATORY | | + + + + + + | Mucus, | Present (A) | Negative /LPF | [facility] | | | Urine | | | [facility] | | | | | | MEDICAL | | | | | | CENTER - | | | | | | LABORATORY | | + + + + + + + + | Specimen | + + | Urine - Urine | | specimen (specimen) | + + + + + + + | Performing | Address | City/State/Zipcode | Phone Number | | Organization | | | | + + + + + | [facility] | [address] | [place] | [phone] | | [facility] | | [address] | | | - LABORATORY | | | | + + + + + ECG 12 lead (07/03/2016 10:40 AM PDT) + + + + + + | Component | Value | Ref Range | Performed | Pathologist | | | | | At | Signature | + + + + + + | VENTRICULAR | 54 | BPM | [facility] | | | RATE EKG | | | | | + + + + + + | ATRIAL RATE | 54 | BPM | [facility] | | + + + + + + | P-R | 162 | ms | [facility] | | | INTERVAL | | | | | + + + + + + | QRS | 90 | ms | [facility] | | | DURATION | | | | | + + + + + + | Q-T | 496 | ms | [facility] | | | INTERVAL | | | | | + + + + + + | Q-T | 470 | ms | [facility] | | | INTERVAL | | | | | | (CORRECTED) | | | | | + + + + + + | P WAVE AXIS | 62 | degrees | [facility] | | + + + + + + | QRS AXIS | -58 | degrees | [facility] | | + + + + + + | T AXIS | -130 | degrees | [facility] | | + + + + + + | INTERPRETAT | Sinus bradycardiaLeft | | [facility] | | | ION TEXT | anterior fascicular | | | | | | blockST & T wave | | | | | | abnormality, consider | | | | | | inferolateral | | | | | | ischemiaProlonged | | | | | | QTAbnormal ECGWhen | | | | | | compared with ECG of | | | | | | 03-JUL-2016 06:12, | | | | | | (Unconfirmed)No | | | | | | significant change was | | | | | | foundConfirmed by | | | | | | RAMÓN DOWD MD ([id number]) | | | | | | on 07/03/2016 10:45:00 AM | | | | | | | | | | + + + + + + + + | Specimen | + + | | + + + + + | Narrative | Performed At | + + + | | | + + + + +---------+ + + | Performing | Address | City/State/Zipcode | Phone Number | | Organization | | | | + +---------+ + + | [facility] | | | | + +---------+ + + CV CARDIAC PROCEDURE (07/03/2016 9:48 AM PDT) + + | Specimen | + + | | + + + + + | Narrative | Performed At | + + + | Mi Greenberg | | | MD Ese 07/04/2016 10:38Rondoyle Stark is a 75 y.o. male | | | patient.No diagnosis found.Past Medical History Diagnosis Date | | | Diabetes (HCC) | | | Dysuria | | | Hydronephrosis with ureteral stricture | | | Malignant neoplasm of ureter (HCC) | | | Urinary frequency | | | Malignant neoplasm of bladder (HCC) | | | Coronary atherosclerosis | | | Diabetes type 2, controlled (HCC) | | | Benign essential hypertension | | | Full dentures Blood pressure 154/61, pulse 54, temperature 36.7 | | | C (98.1 F), temperature source Oral, resp. rate 15, height 1.702 m | | | (5' 7"), weight 77.5 kg (170 lb 13.7 oz), SpO2 96 %. CV Cardiac | | | ProcedureDate/Time: 07/04/2016 10:01Performed by: MI LE | | | AAuthorized by: MI LE AConsent: Verbal consent obtained. | | | Written consent obtained.Risks and benefits: risks, benefits and | | | alternatives were discussedConsent given by: patientPatient | | | understanding: patient states understanding of the procedure being | | | performedPatient consent: the patient's understanding of the procedure | | | matches consent givenProcedure consent: procedure consent matches | | | procedure scheduledRelevant documents: relevant documents present and | | | verifiedTest results: test results available and properly labeledSite | | | marked: the operative site was markedImaging studies: imaging studies | | | availableRequired items: required blood products, implants, devices, | | | and special equipment availablePatient identity confirmed: verbally | | | with patient and arm bandTime out: Immediately prior to procedure a | | | "time out" was called to verify the correct patient, procedure, | | | equipment, support worker and site/side marked as required.Preparation: | | | Patient was prepped and draped in the usual sterile fashion.Local | | | anesthesia used: yesPatient sedated: yesSedation type: moderate | | | (conscious) sedationVitals: Vital signs were monitored during | | | sedation.Patient tolerance: Patient tolerated the procedure well with | | | no immediate complications Mi Le07/04/2016 LEFT CARDIAC | | | CATHETERIZATION AND CORONARY INTERVENTION REPORT PATIENT NAME: | | | Lokesh StarkDATE OF : 1940MEDICAL RECORD NUMBER: | | | [id number] OF PROCEDURE: 07/04/2016 | | | | | | PRIMARY CARE PROVIDER: ELISA Duong | | | UNIT SECRETARY: Dr. Mi Le MD, [facility] PRE-PROCEDURE | | | DIAGNOSIS: NSTEMIPOST-PROCEDURE DIAGNOSIS: PTCA and Bare metal | | | stent of the RCA via the SVG PROCEDURES PERFORMED: 1. Left | | | Heart Catheterization for pressures2. Coronary Angiography3. Left | | | Ventriculography4. Percutaneous coronary intervention Bare metal | | | stent of the RCA via the SVG CAD Presentation: NSTEMI Anginal | | | Classification (within 2 weeks): unstable Anti-Anginal med (within 2 | | | weeks): noHeart Failure (within 2 weeks): noCardiomyopathy or LV | | | Systolic Dysfunction: noCardiogenic shock w/in 24 hours: | | | noPre-operative Evaluation Before Non-Cardiac Surgery: noCardiac | | | Arrest w/in 24 hours: noEvaluation of valvular heart disease: | | | noStress or Imaging Studies Performed: no Echocardiogram no | | | | | | Patient Risk factors: Age 75 y.o.advanced age (older than 55 | | | for men, 65 for women), diabetes mellitus, dyslipidemia, hypertension | | | and male gender; Diabetes Mellitus on Insulin: noPrior PCI: | | | noEstimated Creatinine Clearance: 65 mL/min (based on Cr of 0.95). | | | kidney dx: noChronic Lung disease: noBMI: Body mass index is | | | 26.75 kg/(m^2).History of PAD: noPrior history of CVA: no 2. | | | Indication For Coronary RevascularizationPlease indicate one of the | | | following if PCI is performed: NSTEMI By AUC criteria, PCI is | | | Appropriate DESCRIPTION OF PROCEDURE: Informed consent was obtained | | | from the patient, and a time-out was performed to verify the patient's | | | identification and planned procedure. Please refer to the computer | | | log entry form for precise details. The patient's right groin was | | | then prepped and draped in the usual sterile fashion, and anesthetized | | | with 1% lidocaine. A 6 F sheath was inserted. Coronary angiography | | | was performed in multiple views using 6 Lithuanian JR4 and JL 4 | | | diagnostic catheters and LCB, the JR4 is used for MARY and an RCB for | | | the right graft. A 5 argentine pigtail catheter was advanced into the | | | left ventricle, pressures were measured, and aortic root injection was | | | performed. A pullback across the valve was used to assess if there | | | was a gradient across the aortic valve. After review of the digital | | | images, I elected to proceed with the coronary intervention. The | | | patient's anticoagulation regimen consisted of Bivalirudin and Plavix. | | | A 6 argentine MPA guide was used to cannulate the SVG to the right | | | coronary vessel. The lesion was crossed with the whisper wire a | | | Candace smith would no cross and was used as a cornelio. It was pre | | | dilated with 2.5 X 15 apex balloon. The lesion was then treated with | | | a 2.5 X 16 Rebel And then post dilated with a 2.75 X 12 NC balloon. | | | Bare metal was used due to ongoing treatment of bladder cancer. | | | Femoral angiogram showed we were too close to the bifurcation to | | | angioseal. Sheath sutured in place to be removed later. . There | | | were no immediate complications. Estimated blood loss was: 20 | | | cc. Fluro Time: 16.6 Contrast: 285 mls of Omnipaque 350 | | | FINDINGS:Hemodynamics:Left ventricular end-diastolic pressure (LVEDP) | | | was 16 mm Hg. There was no gradient across the aortic valve. Left | | | Ventriculography: Not performedAortic Root: No AI or dissection. | | | 2 SVG patent RCA and Diag.Left main coronary artery: Normal Left | | | anterior descending coronary artery: 100% proximal. Fed via the | | | MARY to the distal vessel and retrograde from the diagonal | | | graft.Circumflex coronary artery: 100%. Fed via collaterals from the | | | RCA graft.Right coronary artery: 100% Fed via the right graft. | | | 99% stenosis of the PDA just beyond the insertion of the graft. | | | PRINCESS 3 flowPost intervention: no residual stenosis. PRINCESS 3 | | | flowGraft Angiography:MARY to the LAD: Patent. SVG to the LCX: 100% | | | occludedSVG to the Diagonal: Excellent graft. Feeds the diagonal | | | antegrade and the proximal LAD retrograde. competitive flow from MARY | | | to the distal vesselSVG to the PDA: Excellent graft. 99% | | | stenosis of the PDA just beyond the insertion of the graft | | | CONCLUSIONS:1. S/P bare metal stent of the PDA via the RCA graft2. | | | 100% SVG to the LCX3. Total occlusion of the squaxin circulation4. | | | Patent MARY to the LAD5. SVG to the Diagonal: Excellent graft. | | | Feeds the diagonal antegrade and the proximal LAD retrograde. | | | competitive flow from MARY to the distal vessel6. SVG to the PDA: | | | Excellent graft. 99% stenosis of the PDA just beyond the | | | insertion of the graft CLINICAL IMPRESSION AND RECOMMENDATIONS Remain | | | on Plavix 3-6 months if no bleeding - could be stopped after a month | | | if there are issues Mi Le MD, [facility], [facility] | | | Medical CenterDATE/TIME: 07/04/2016 10:029 10:02 Portions of | | | this chart were created with [employer] voice recognition software. | | | Occasional wrong-word or | | | | | | sound-alike | | | substitutions may have occurred due to the inherent limitations of | | | voice recognition software. Please contact me if there are any | | | questions regarding any aspects of the above report. | | |DESCRIPTION OF PROCEDURE: | | | | | |Informed consent was obtained from the patient, and a time-out | | |was performed to verify the patient's identification and planned | | |procedure. Please refer to the computer log entry form for | | |precise details. The patient's right groin was then prepped and | | |draped in the usual sterile fashion, and anesthetized with 1% | | |lidocaine. A 6 F sheath was inserted. Coronary angiography was | | |performed in multiple views using 6 Lithuanian JR4 and JL 4 | | |diagnostic catheters and LCB, the JR4 is used for MARY and an RCB | | |for the right graft. A 5 argentine pigtail catheter was advanced | | |into the left ventricle, pressures were measured, and aortic root | | |injection was performed. A pullback across the valve was used to | | |assess if there was a gradient across the aortic valve. | | | | | |After review of the digital images, I elected to proceed with the | | |coronary intervention. The patient's anticoagulation regimen | | |consisted of Bivalirudin and Plavix. A 6 argentine MPA guide was | | |used to cannulate the SVG to the right coronary vessel. The | | |lesion was crossed with the whisper wire a Candace smith would no | | |cross and was used as a cornelio. It was pre dilated with 2.5 X 15 | | |apex balloon. The lesion was then treated with a 2.5 X 16 Rebel | | |And then post dilated with a 2.75 X 12 NC balloon. Bare metal was | | |used due to ongoing treatment of bladder cancer. | | | | | | Femoral angiogram showed we were too close to the bifurcation | | |to angioseal. Sheath sutured in place to be removed later. . | | |There were no immediate complications. | | | Estimated blood loss was: 20 cc. | | | Fluro Time: 16.6 | | | Contrast: 285 mls of Omnipaque 350 | | | | | | | | |FINDINGS: | | |Hemodynamics: | | |Left ventricular end-diastolic pressure (LVEDP) was 16 mm Hg. | | |There was no gradient across the aortic valve. | | | | | |Left Ventriculography: Not performed | | |Aortic Root: No AI or dissection. 2 SVG patent RCA and Diag. | | |Left main coronary artery: Normal | | |Left anterior descending coronary artery: 100% proximal. Fed | | |via the MARY to the distal vessel and retrograde from the diagonal | | |graft. | | |Circumflex coronary artery: 100%. Fed via collaterals from the | | |RCA graft. | | |Right coronary artery: 100% Fed via the right graft. 99% | | |stenosis of the PDA just beyond the insertion of the graft. PRINCESS | | |3 flow | | |Post intervention: no residual stenosis. PRINCESS 3 flow | | |Graft Angiography: | | |MARY to the LAD: Patent. | | |SVG to the LCX: 100% occluded | | |SVG to the Diagonal: Excellent graft. Feeds the diagonal | | |antegrade and the proximal LAD retrograde. competitive flow from | | |MARY to the distal vessel | | |SVG to the PDA: Excellent graft. 99% stenosis of the PDA just | | |beyond the insertion of the graft | | | | | | | | |CONCLUSIONS: | | |1. S/P bare metal stent of the PDA via the RCA graft | | |2. 100% SVG to the LCX | | |3. Total occlusion of the squaxin circulation | | |4. Patent MARY to the LAD | | |5. SVG to the Diagonal: Excellent graft. Feeds the diagonal | | |antegrade and the proximal LAD retrograde. competitive flow from | | |MARY to the distal vessel | | |6. SVG to the PDA: Excellent graft. 99% stenosis of the PDA | | |just beyond the insertion of the graft | | | | | | | | |CLINICAL IMPRESSION AND RECOMMENDATIONS | | |Remain on Plavix 3-6 months if no bleeding - could be stopped | | |after a month if there are issues | | | | | |Mi Le MD, [facility], [facility] | | |[facility] | | |DATE/TIME: 07/04/2016 10:02 | | |07/04/2016 10:02 | | | | | |Portions of this chart were created with [employer] voice recognition | | |software. Occasional wrong-word or sound-alike substitutions | | |may have occurred due to the inherent limitations of voice | | |recognition software. Please contact me if there are any | | |questions regarding any aspects of the above report. | | | | | | | | + + + ECG 12 lead (07/03/2016 6:12 AM PDT) + + + + + + | Component | Value | Ref Range | Performed | Pathologist | | | | | At | Signature | + + + + + + | VENTRICULAR | 54 | BPM | [facility] | | | RATE EKG | | | | | + + + + + + | ATRIAL RATE | 54 | BPM | [facility] | | + + + + + + | P-R | 164 | ms | [facility] | | | INTERVAL | | | | | + + + + + + | QRS | 86 | ms | [facility] | | | DURATION | | | | | + + + + + + | Q-T | 458 | ms | [facility] | | | INTERVAL | | | | | + + + + + + | Q-T | 434 | ms | [facility] | | | INTERVAL | | | | | | (CORRECTED) | | | | | + + + + + + | P WAVE AXIS | 60 | degrees | [facility] | | + + + + + + | QRS AXIS | -54 | degrees | [facility] | | + + + + + + | T AXIS | -131 | degrees | [facility] | | + + + + + + | INTERPRETAT | Sinus bradycardiaLeft | | [facility] | | | ION TEXT | anterior fascicular | | | | | | blockST & T wave | | | | | | abnormality, consider | | | | | | lateral ischemiaAbnormal | | | | | | ECGWhen compared with | | | | | | ECG of 02-JUL-2016 | | | | | | 20:34, (Unconfirmed)No | | | | | | significant change was | | | | | | foundConfirmed by | | | | | | RAMÓN DOWD MD ([id number]) | | | | | | on 07/03/2016 10:39:48 AM | | | | | | | | | | + + + + + + + + | Specimen | + + | | + + + + + | Narrative | Performed At | + + + | | | + + + + +---------+ + + | Performing | Address | City/State/Zipcode | Phone Number | | Organization | | | | + +---------+ + + | [facility] | | | | + +---------+ + + CBC no Differential (07/03/2016 4:17 AM PDT) + + + + + + | Component | Value | Ref Range | Performed | Pathologist | | | | | At | Signature | + + + + + + | White Blood | 7.9 | 4.0 - 11.0 K/uL | [facility] | | | Cells | | | [facility] | | | | | | MEDICAL | | | | | | CENTER - | | | | | | LABORATORY | | + + + + + + | Red Blood | 5.34 | 4.30 - 5.70 | [facility] | | | Cells | | M/uL | [facility] | | | | | | MEDICAL | | | | | | CENTER - | | | | | | LABORATORY | | + + + + + + | Hemoglobin | 15.3 | 13.5 - 18.0 | [facility] | | | | | g/dL | [facility] | | | | | | MEDICAL | | | | | | CENTER - | | | | | | LABORATORY | | + + + + + + | Hematocrit | 44.6 | 40.0 - 51.0 % | [facility] | | | | | | [facility] | | | | | | MEDICAL | | | | | | CENTER - | | | | | | LABORATORY | | + + + + + + | MCV | 83.5 | 83.0 - 101.0 fL | [facility] | | | | | | [facility] | | | | | | MEDICAL | | | | | | CENTER - | | | | | | LABORATORY | | + + + + + + | MCH | 28.6 | 28.0 - 35.0 pg | [facility] | | | | | | [facility] | | | | | | MEDICAL | | | | | | CENTER - | | | | | | LABORATORY | | + + + + + + | MCHC | 34.3 | 32.0 - 36.0 | [facility] | | | | | g/dL | [facility] | | | | | | MEDICAL | | | | | | CENTER - | | | | | | LABORATORY | | + + + + + + | RDW-CV | 16.5 (H) | <15.0 % | [facility] | | | | | | [facility] | | | | | | MEDICAL | | | | | | CENTER - | | | | | | LABORATORY | | + + + + + + | Platelet | 179 | 140 - 440 K/uL | [facility] | | | Count | | | [facility] | | | | | | MEDICAL | | | | | | CENTER - | | | | | | LABORATORY | | + + + + + + | MPV | 9.2 | fL | [facility] | | | | | | [facility] | | | | | | MEDICAL | | | | | | CENTER - | | | | | | LABORATORY | | + + + + + + + + | Specimen | + + | Blood | + + + + + + + | Performing | Address | City/State/Zipcode | Phone Number | | Organization | | | | + + + + + | [facility] | [address] | [place] | [phone] | | [facility] | | [address] | | | - LABORATORY | | | | + + + + + PTT (07/03/2016 4:17 AM PDT) + +--------+ + + + | Component | Value | Ref Range | Performed | Pathologist | | | | | At | Signature | + +--------+ + + + | aPTT | 64 (H) | 22 - 36 seconds | [facility] | | | | | | [facility] | | | | | | MEDICAL | | | | | | CENTER - | | | | | | LABORATORY | | + +--------+ + + + + + | Specimen | + + | Blood | + + + + + + + | Performing | Address | City/State/Zipcode | Phone Number | | Organization | | | | + + + + + | [facility] | [address] | [place] | [phone] | | [facility] | | [address] | | | - LABORATORY | | | | + + + + + Basic Metabolic Panel (07/03/2016 4:17 AM PDT) + + + + + + | Component | Value | Ref Range | Performed | Pathologist | | | | | At | Signature | + + + + + + | Na | 144 | 136 - 149 | [facility] | | | | | mmol/L | [facility] | | | | | | MEDICAL | | | | | | CENTER - | | | | | | LABORATORY | | + + + + + + | K | 3.6 | 3.5 - 5.1 | [facility] | | | | | mmol/L | [facility] | | | | | | MEDICAL | | | | | | CENTER - | | | | | | LABORATORY | | + + + + + + | Cl | 111 (H) | 98 - 109 mmol/L | [facility] | | | | | | [facility] | | | | | | MEDICAL | | | | | | CENTER - | | | | | | LABORATORY | | + + + + + + | CO2 | 24 | 24 - 31 mmol/L | [facility] | | | | | | [facility] | | | | | | MEDICAL | | | | | | CENTER - | | | | | | LABORATORY | | + + + + + + | Anion Gap | 9 | 3 - 16 mmol/L | [facility] | | | | | | [facility] | | | | | | MEDICAL | | | | | | CENTER - | | | | | | LABORATORY | | + + + + + + | Glucose | 137 (H) | 70 - 109 mg/dL | [facility] | | | | | | [facility] | | | | | | MEDICAL | | | | | | CENTER - | | | | | | LABORATORY | | + + + + + + | BUN | 13 | 7 - 18 mg/dL | [facility] | | | | | | [facility] | | | | | | MEDICAL | | | | | | CENTER - | | | | | | LABORATORY | | + + + + + + | Creatinine | 0.95 | 0.60 - 1.30 | [facility] | | | | | mg/dL | [facility] | | | | | | MEDICAL | | | | | | CENTER - | | | | | | LABORATORY | | + + + + + + | eGFR, | >60Comment: GLOMERULAR | >=60 | [facility] | | | non- | FILTRATION | mL/min/1.73m2 | [facility] | | | [place] | RATE,ESTIMATED | | MEDICAL | | | | mL/min/1.23k6Xsjk than | | CENTER - | | | | 60 Chronic kidney | | LABORATORY | | | | disease,if found over a | | | | | | 3-month period.Less than | | | | | | 15 Kidney failureFor | | | | | | | | | | | | Americans,multiply the | | | | | | calculated GFR by 1.21. | | | | | | | | | | + + + + + + | Calcium | 9.3 | 8.3 - 10.5 | [facility] | | | | | mg/dL | [facility] | | | | | | MEDICAL | | | | | | CENTER - | | | | | | LABORATORY | | + + + + + + | BUN/Creatin | 13.7 | | [facility] | | | ine Ratio | | | [facility] | | | | | | MEDICAL | | | | | | CENTER - | | | | | | LABORATORY | | + + + + + + + + | Specimen | + + | Blood | + + + + + + + | Performing | Address | City/State/Zipcode | Phone Number | | Organization | | | | + + + + + | [facility] | [address] | [place] | [phone] | | [facility] | | [address] | | | - LABORATORY | | | | + + + + + Lipid Panel (07/03/2016 4:17 AM PDT) + + + + + + | Component | Value | Ref Range | Performed | Pathologist | | | | | At | Signature | + + + + + + | Triglycerid | 134 | 35 - 160 mg/dL | [facility] | | | es | | | [facility] | | | | | | MEDICAL | | | | | | CENTER - | | | | | | LABORATORY | | + + + + + + | Cholesterol | 101 (L) | 150 - 200 mg/dL | [facility] | | | | | | [facility] | | | | | | MEDICAL | | | | | | CENTER - | | | | | | LABORATORY | | + + + + + + | HDL | 33Comment: New HDL | 28 - 83 mg/dL | [facility] | | | | Reference Range as of | | [facility] | | | | July 02, 2015 | | MEDICAL | | | | Values may be 10-20% | | CENTER - | | | | lower with new, | | LABORATORY | | | | standardized method. | | | | + + + + + + | Chol/HDL | 3.1 | | [facility] | | | Ratio | | | [facility] | | | | | | MEDICAL | | | | | | CENTER - | | | | | | LABORATORY | | + + + + + + | LDL, | 41 | <=130 mg/dL | [facility] | | | Calculated | | | [facility] | | | | | | MEDICAL | | | | | | CENTER - | | | | | | LABORATORY | | + + + + + + + + | Specimen | + + | Blood | + + + + + + + | Performing | Address | City/State/Zipcode | Phone Number | | Organization | | | | + + + + + | [facility] | [address] | [place] | [phone] | | [facility] | | [address] | | | - LABORATORY | | | | + + + + + Troponin I (07/03/2016 4:17 AM PDT) + + + + + + | Component | Value | Ref Range | Performed | Pathologist | | | | | At | Signature | + + + + + + | Troponin I | 1.65 ()Comment: | <0.06 ng/mL | [facility] | | | | Critical Result called | | [facility] | | | | to and read back by Ren | | [facility] | | | | Tian on 07/03/2016 at | | CENTER - | | | | 5:02 by Abdon Brooks. | | LABORATORY | | | | Reference | | | | | | Ranges:0.00-0.06 = | | | | | | NORMAL>0.06 = | | | | | | SUSPICIOUS FOR | | | | | | MYOCARDIAL DAMAGE NOTE: | | | | | | Values greater than 0.50 | | | | | | ng/mL have been shown | | | | | | to be strongly | | | | | | associated with acute | | | | | | myocardial infarction. | | | | | | The [place] [employer] | | | | | | Cardiology (ACC) | | | | | | recommends a decision | | | | | | limit of 0.06 ng/mL for | | | | | | this assay. Results | | | | | | greater than 0.06 can | | | | | | reflect a pre-infarct | | | | | | acute coronary syndrome, | | | | | | but can also reflect | | | | | | myocardial necrosis or | | | | | | injury that is not due | | | | | | to coronary artery | | | | | | disease. Some of these | | | | | | causes are sepsis, | | | | | | hypocolemia, atrial | | | | | | fibrillation, heart | | | | | | failure, pulmonary | | | | | | embolism, myocarditis, | | | | | | myocardial contusion, | | | | | | and renal failure. The | | | | | | diagnosis of myocardial | | | | | | infarction should be | | | | | | based on a combination | | | | | | of the patient's | | | | | | clinical presentation | | | | | | and the clinical | | | | | | laboratory test results | | | | | | (especially serial | | | | | | troponin levels). | | | | + + + + + + + + | Specimen | + + | Blood | + + + + + + + | Performing | Address | City/State/Zipcode | Phone Number | | Organization | | | | + + + + + | [facility] | [address] | [place] | [phone] | | [facility] | | [address] | | | - LABORATORY | | | | + + + + + Hepatic Function Panel (07/02/2016 9:31 PM PDT) + +---------+ + + + | Component | Value | Ref Range | Performed | Pathologist | | | | | At | Signature | + +---------+ + + + | Bilirubin | 0.7 | 0.1 - 1.5 mg/dL | [facility] | | | Total | | | [facility] | | | | | | MEDICAL | | | | | | CENTER - | | | | | | LABORATORY | | + +---------+ + + + | Total | 5.6 (L) | 6.0 - 7.8 g/dL | [facility] | | | Protein | | | [facility] | | | | | | MEDICAL | | | | | | CENTER - | | | | | | LABORATORY | | + +---------+ + + + | Albumin | 3.4 | 3.2 - 5.0 g/dL | [facility] | | | | | | [facility] | | | | | | MEDICAL | | | | | | CENTER - | | | | | | LABORATORY | | + +---------+ + + + | AST | 33 | 10 - 42 U/L | [facility] | | | | | | [facility] | | | | | | MEDICAL | | | | | | CENTER - | | | | | | LABORATORY | | + +---------+ + + + | ALT | 32 | 6 - 45 U/L | [facility] | | | | | | [facility] | | | | | | MEDICAL | | | | | | CENTER - | | | | | | LABORATORY | | + +---------+ + + + | Alkaline | 54 | 40 - 110 U/L | [facility] | | | Phosphatase | | | [facility] | | | | | | MEDICAL | | | | | | CENTER - | | | | | | LABORATORY | | + +---------+ + + + | Globulin | 2.2 | 2.1 - 3.8 g/dL | [facility] | | | [facility] | | | | | [facility] | | | | | | CENTER - | | | | | | LABORATORY | | + +---------+ + + + | Albumin/Blanquita | 1.5 | 0.8 - 2.0 | [facility] | | | bulin Ratio | | | [facility] | | | | | | MEDICAL | | | | | | CENTER - | | | | | | LABORATORY | | + +---------+ + + + | Bilirubin, | 0.10 | 0.00 - 0.20 | [facility] | | | Direct | | mg/dl | [facility] | | | | | | MEDICAL | | | | | | CENTER - | | | | | | LABORATORY | | + +---------+ + + + + + | Specimen | + + | Blood | + + + + + + + | Performing | Address | City/State/Zipcode | Phone Number | | Organization | | | | + + + + + | [facility] | [address] | [place] | [phone] | | [facility] | | [address] | | | - LABORATORY | | | | + + + + + Troponin I (07/02/2016 9:31 PM PDT) + + + + + + | Component | Value | Ref Range | Performed | Pathologist | | | | | At | Signature | + + + + + + | Troponin I | 0.95 ()Comment: | <0.06 ng/mL | [facility] | | | | Reference | | [facility] | | | | Ranges:0.00-0.06 = | | MEDICAL | | | | NORMAL>0.06 = | | CENTER - | | | | SUSPICIOUS FOR | | LABORATORY | | | | MYOCARDIAL DAMAGE NOTE: | | | | | | Values greater than 0.50 | | | | | | ng/mL have been shown | | | | | | to be strongly | | | | | | associated with acute | | | | | | myocardial infarction. | | | | | | Critical Result called | | | | | | to and read back by | | | | | | JOSE AGUIRRE | | | | | | on 07/03/2016 at 8:10 by | | | | | | Becky Carreno. | | | | | | [employer] | | | | | | [employer] (ACC) | | | | | | recommends a decision | | | | | | limit of 0.06 ng/mL for | | | | | | this assay. Results | | | | | | greater than 0.06 can | | | | | | reflect a pre-infarct | | | | | | acute coronary syndrome, | | | | | | but can also reflect | | | | | | myocardial necrosis or | | | | | | injury that is not due | | | | | | to coronary artery | | | | | | disease. Some of these | | | | | | causes are sepsis, | | | | | | hypocolemia, atrial | | | | | | fibrillation, heart | | | | | | failure, pulmonary | | | | | | embolism, myocarditis, | | | | | | myocardial contusion, | | | | | | and renal failure. The | | | | | | diagnosis of myocardial | | | | | | infarction should be | | | | | | based on a combination | | | | | | of the patient's | | | | | | clinical presentation | | | | | | and the clinical | | | | | | laboratory test results | | | | | | (especially serial | | | | | | troponin levels). | | | | + + + + + + + + | Specimen | + + | Blood | + + + + + + + | Performing | Address | City/State/Zipcode | Phone Number | | Organization | | | | + + + + + | [facility] | [address] | [place] | [phone] | | [facility] | | [address] | | | - LABORATORY | | | | + + + + + PTT (07/02/2016 9:31 PM PDT) + +--------+ + + + | Component | Value | Ref Range | Performed | Pathologist | | | | | At | Signature | + +--------+ + + + | aPTT | 86 (H) | 22 - 36 seconds | [facility] | | | | | | MEDICAL | | | | | | CENTER - | | | | | | LABORATORY | | + +--------+ + + + + + | Specimen | + + | Blood | + + + + + + + | Performing | Address | City/State/Zipcode | Phone Number | | Organization | | | | + + + + + | [facility] | [address] | [place] | [phone] | | [facility] | | [address] | | | - LABORATORY | | | | + + + + + ECG 12 lead (07/02/2016 8:34 PM PDT) + + + + + + | Component | Value | Ref Range | Performed | Pathologist | | | | | At | Signature | + + + + + + | VENTRICULAR | 61 | BPM | [facility] | | | RATE EKG | | | | | + + + + + + | ATRIAL RATE | 61 | BPM | [facility] | | + + + + + + | P-R | 160 | ms | [facility] | | | INTERVAL | | | | | + + + + + + | QRS | 90 | ms | [facility] | | | DURATION | | | | | + + + + + + | Q-T | 424 | ms | [facility] | | | INTERVAL | | | | | + + + + + + | Q-T | 426 | ms | [facility] | | | INTERVAL | | | | | | (CORRECTED) | | | | | + + + + + + | P WAVE AXIS | 62 | degrees | [facility] | | + + + + + + | QRS AXIS | -59 | degrees | [facility] | | + + + + + + | T AXIS | -123 | degrees | [facility] | | + + + + + + | INTERPRETAT | Normal sinus rhythmLeft | | [facility] | | | ION TEXT | anterior fascicular | | | | | | blockST & T wave | | | | | | abnormality, consider | | | | | | inferolateral | | | | | | ischemiaAbnormal ECGNo | | | | | | previous ECGs | | | | | | availableConfirmed by | | | | | | RAMÓN DOWD MD ([id number]) | | | | | | on 07/03/2016 10:39:27 AM | | | | | | | | | | + + + + + + + + | Specimen | + + | | + + + + + | Narrative | Performed At | + + + | | | + + + + +---------+ + + | Performing | Address | City/State/Zipcode | Phone Number | | Organization | | | | + +---------+ + + | [facility] | | | | + +---------+ + + POC Glucose (07/02/2016 8:12 PM PDT) + +-------+ + + + | Component | Value | Ref Range | Performed | Pathologist | | | | | At | Signature | + +-------+ + + + | Glucose, | 133 | 70 - 150 mg/dL | [facility] | | | [facility] | [facility] | | | | | | MEDICAL | | | | | | CENTER - | | | | | | LABORATORY | | + +-------+ + + + + + | Specimen | + + | Blood | + + + + + + + | Performing | Address | City/State/Zipcode | Phone Number | | Organization | | | | + + + + + | [facility] | [address] | [place] | [phone] | | [facility] | | [address] | | | - LABORATORY | | | | + + + + + LABS - EXTERNAL SCAN (07/02/2016 12:00 AM PDT) + + + | Narrative | Performed At | + + + | Ordered by an | | | unspecified provider. | | + + + IMAGING REPORT - EXTERNAL SCAN (07/02/2016 12:00 AM PDT) + + + | Narrative | Performed At | + + + | Ordered by an | | | unspecified provider. | | + + + ECG - EXTERNAL SCAN (07/02/2016 12:00 AM PDT) + + + | Narrative | Performed At | + + + | Ordered by an | | | unspecified provider. | | + + + documented in this encounter Visit Diagnoses + + | Diagnosis | + + | NSTEMI (non-ST elevated myocardial infarction) (HCC) - Primary Acute myocardial | | infarction, subendocardial infarction, episode of care unspecified | + + | S/P CABG x 4 Postsurgical aortocoronary bypass status | + + | Benign essential hypertension Essential hypertension, benign | + + | Diabetes type 2, controlled (HCC) Type II or unspecified type diabetes mellitus | | without mention of complication, not stated as uncontrolled | + + | Dyslipidemia Other and unspecified hyperlipidemia | + + documented in this encounter Administered Medications + +--------+ +-------+------+------+ | Medication Order | MAR | Action | Dose | Rate | Site | | | Action | Date | | | | + +--------+ +-------+------+------+ | aspirin EC tablet 81 mg 81 mg, | Given | 07/04/20 | 81 mg | | | | Oral, DAILY, First dose on Sat | | 16 8:18 | | | | | 07/02/16 at 2030, Do not cut or | | AM PDT | | | | | crush., | | | | | | + +--------+ +-------+------+------+ +---+---+ | | | +---+---+ + +-------+ +-------+---+---+ | atorvaSTATin (LIPITOR) tablet | Given | 07/03/20 | 80 mg | | | | 80 mg 80 mg, Oral, NIGHTLY, | | 16 8:06 | | | | | First dose on 07/02/16 at 2100 | | PM PDT | | | | + +-------+ +-------+---+---+ +-------+ +-------+---+---+ | Given | 07/02/20 | 80 mg | | | | | 16 9:19 | | | | | | PM PDT | | | | +-------+ +-------+---+---+ +---+---+ | | | +---+---+ + +-------+ +-------+---+---+ | cetirizine (zyrTEC) tablet 10 | Given | 07/04/20 | 10 mg | | | | mg 10 mg, Oral, DAILY, First | | 16 8:18 | | | | | dose on 07/03/16 at 0900 | | AM PDT | | | | + +-------+ +-------+---+---+ +---+---+ | | | +---+---+ + +-------+ +--------+---+---+ | cholecalciferol (VITAMIN D-3) | Given | 07/04/20 | 1,000 | | | | tablet 1,000 Units 1,000 Units, | | 16 8:18 | Units | | | | Oral, DAILY, First dose on Sun | | AM PDT | | | | | 07/03/16 at 0900 | | | | | | + +-------+ +--------+---+---+ +---+---+ | | | +---+---+ + +-------+ +--------+---+---+ | clopidogrel (PLAVIX) tablet 600 | Given | 07/03/20 | 600 mg | | | | mg 600 mg, Oral, ONCE, Sun | | 16 7:38 | | | | | 07/03/16 at 0700, For 1 dose | | AM PDT | | | | + +-------+ +--------+---+---+ +---+---+ | | | +---+---+ + +-------+ +-------+---+---+ | clopidogrel (PLAVIX) tablet 75 | Given | 07/04/20 | 75 mg | | | | mg 75 mg, Oral, DAILY, First | | 16 8:18 | | | | | dose on 07/03/16 at 1015, Do | | AM PDT | | | | | not give if already taken today, | | | | | | | Post-op/Phase II | | | | | | + +-------+ +-------+---+---+ +---+---+ | | | +---+---+ + +-------+ +--------+---+---+ | fentaNYL (PF) injection 25 mcg | Given | 07/03/20 | 25 mcg | | | | 25 mcg, Intravenous, EVERY 1 | | 16 2:06 | | | | | HOUR PRN, Pain, Starting Sun | | PM PDT | | | | | 07/03/16 at 0956 | | | | | | + +-------+ +--------+---+---+ +---+---+ | | | +---+---+ + + + + + +---+ | heparin in half-normal saline | Continue | 07/03/20 | 900 | 18 mL/hr | | | 50 units/mL infusion 0-3,000 | bag | 16 8:01 | Units/hr | | | | Units/hr (0-60 mL/hr), at 0-60 | from | AM PDT | | | | | mL/hr, Intravenous, TITRATED, | transfer | | | | | | Starting 07/02/16 at 2030, Use | | | | | | | actual body weight to calculate | | | | | | | dose Round infusion dose to | | | | | | | nearest 50 units/hr. Round bolus | | | | | | | dose to nearest 100 units. | | | | | | | CARDIAC DOSE HEPARIN PROTOCOL | | | | | | | STARTING heparin infusion dose | | | | | | | Patient actual weight not | | | | | | | available. (12 units/kg/hr, | | | | | | | initial rate max 1,000 units/hr). | | | | | | | Draw APTT from an IV site other | | | | | | | than heparin IV site 6 hours | | | | | | | after starting a heparin | | | | | | | infusion. PTT Nomogram for | | | | | | | ADJUSTING heparin APTT < 46 | | | | | | | seconds: Bolus 4,000 units & | | | | | | | increase rate by 200 units/hr | | | | | | | Repeat APTT 6 hr after change | | | | | | | APTT 46-60 seconds: Bolus 2,000 | | | | | | | units & increase rate by 100 | | | | | | | units/hr Repeat APTT 6 hr after | | | | | | | change APTT 61-98 seconds: No | | | | | | | bolus or rate change. Repeat | | | | | | | in AM. APTT 99-126 seconds: | | | | | | | Decrease rate by 100 units/hr | | | | | | | Repeat APTT 6 hr after change | | | | | | | APTT 127-149 seconds: Stop | | | | | | | infusion 60 minutes then recheck | | | | | | | APTT. When APTT is 126 or less, | | | | | | | restart heparin at decreased | | | | | | | rate by 200 units/hr. Repeat | | | | | | | APTT 6 hr after change., | | | | | | + + + + + +---+ +---------+ + + +---+ | New Bag | 07/02/20 | 900 | 18 mL/hr | | | | 16 10:33 | Units/hr | | | | | PM PDT | | | | +---------+ + + +---+ +---+---+ | | | +---+---+ + +-------+ +-------+---+---+ | lisinopril (PRINIVIL, ZESTRIL) | Given | 07/04/20 | 20 mg | | | | tablet 20 mg 20 mg, Oral, DAILY, | | 16 8:17 | | | | | First dose on 07/03/16 at | | AM PDT | | | | | 0900 | | | | | | + +-------+ +-------+---+---+ +---+---+ | | | +---+---+ + + + +---------+---------+---+ | nitroglycerin in dextrose 100 | Rate/Dos | 07/03/20 | 10 | 6 mL/hr | | | mcg/mL infusion 5-250 mcg/min | e Change | 16 6:00 | mcg/min | | | | (3-150 mL/hr), at 3-150 mL/hr, | | PM PDT | | | | | Intravenous, TITRATED, Starting | | | | | | | 07/03/16 at 1330, Titrate to | | | | | | | sbp < = 140, | | | | | | + + + +---------+---------+---+ + + +---------+---------+---+ | Continue bag from transfer | 07/03/20 | 15 | 9 mL/hr | | | | 16 10:00 | mcg/min | | | | | AM PDT | | | | + + +---------+---------+---+ +---+---+ | | | +---+---+ + +-------+ +------+---+---+ | ondansetron (ZOFRAN) injection | Given | 07/03/20 | 8 mg | | | | 4-8 mg 4-8 mg, Intravenous, | | 16 3:20 | | | | | EVERY 6 HOURS PRN, Nausea, | | PM PDT | | | | | Vomiting, Starting 07/03/16 at | | | | | | | 0956, Post-op/Phase II | | | | | | + +-------+ +------+---+---+ +---+---+ | | | +---+---+ + +-------+ +-------+---+---+ | oxyCODONE (ROXICODONE) tablet | Given | 07/03/20 | 10 mg | | | | 5-10 mg 5-10 mg, Oral, EVERY 4 | | 16 6:00 | | | | | HOURS PRN, Pain, Starting Sun | | PM PDT | | | | | 07/03/16 at 0956, Post-op/Phase II | | | | | | + +-------+ +-------+---+---+ +-------+ +-------+---+---+ | Given | 07/03/20 | 10 mg | | | | | 16 10:08 | | | | | | AM PDT | | | | +-------+ +-------+---+---+ +---+---+ | | | +---+---+ + +-------+ +-------+---+---+ | pantoprazole (PROTONIX) DR | Given | 07/04/20 | 40 mg | | | | tablet 40 mg 40 mg, Oral, DAILY | | 16 7:07 | | | | | BEFORE BREAKFAST, First dose on | | AM PDT | | | | | 07/03/16 at 0730, Do not cut | | | | | | | or crush., | | | | | | + +-------+ +-------+---+---+ +-------+ +-------+---+---+ | Given | 07/03/20 | 40 mg | | | | | 16 7:38 | | | | | | AM PDT | | | | +-------+ +-------+---+---+ +---+---+ | | | +---+---+ + +-------+ +--------+---+---+ | potassium chloride (K-DUR) ER | Given | 07/04/20 | 40 mEq | | | | tablet 40 mEq 40 mEq, Oral, | | 16 10:11 | | | | | ONCE, 07/04/16 at 1015, For 1 | | AM PDT | | | | | dose | | | | | | + +-------+ +--------+---+---+ +---+---+ | | | +---+---+ + +-------+ +--------+---+---+ | tamsulosin (FLOMAX) capsule 0.4 | Given | 07/04/20 | 0.4 mg | | | | mg 0.4 mg, Oral, DAILY AFTER | | 16 8:18 | | | | | BREAKFAST, First dose on Sun | | AM PDT | | | | | 07/03/16 at 0900, Do not open | | | | | | | capsule., | | | | | | + +-------+ +--------+---+---+ +---+---+ | | | +---+---+ documented in this encounter
--- OUTSIDE RECORDS SUMMARY | ~2020-07-10 | XMS | Encounter Summary ---
Demographics + + + | Address | [address] | | | [place] [address] | + + + | Home Phone | | + + + | Preferred Language | Unknown | + + + | Marital Status | | + + + | Anabaptism Affiliation | Unknown | + + + [...] [place] | | | | | [address] | | + + + + + | Roselia Hayes | ECON | Unknown | | + + + + + Care Team Providers + +------+ + | Care Carpenter Assistant Name | Role | Phone | + +------+ + PCP | Unavailable | + +------+ + Encounter Details +--------+ + + + + | Date | Type | Department | Care Team | Description | +--------+ + + + + | 03/11/ | Hospital | [facility] | Conversion | Diagnosis unknown | | 2014 | Encounter | CONVERSION [address] | Transaction, | | | | | [address] | Provider Unknown | | | | | [place], [place] | | | | | | [phone] | (Fax) | | | | | [phone] | | | +--------+ + + + + Social History + +-------+ +--------+------+ | Tobacco Use | Types | Packs/Day | Years | Date | | | | | Used | | + +-------+ +--------+------+ | Never Assessed | | | | | + +-------+ +--------+------+ + + + | Sex Assigned at | Date Recorded | | | | + + + | Not on file | | + + + documented as of this encounter Plan of Treatment Not on filedocumented as of this encounter Procedures + +--------+ + + + | Procedure Name | Priori | Date/Time | Associated Diagnosis | Comments | | | ty | | | | + +--------+ + + + | US RETROPERITONEAL | Routin | 02/19/2014 | | Results for this | | COMPLETE | e | 11:56 AM | | procedure are in the | | | | PDT | | results section. | + +--------+ + + + documented in this encounter Results US Retroperitoneal Complete (02/19/2014 11:56 AM PDT) + + | Specimen | + + | | + + + + + | Narrative | Performed At | + + + | This is a non-reportable procedure without a radiologist report and | | | is used for image storage only | | + + + + + | Procedure Note | + + | Jonnie Prakash - 06/07/2019 10:27 PM PDT This is a non-reportable procedure | | without a radiologist report and isused for image storage only | + + documented in this encounter Visit Diagnoses + + | Diagnosis | + + | Diagnosis unknown Other unknown and unspecified cause of morbidity or mortality | + + documented in this encounter"
--- OUTSIDE RECORDS SUMMARY | ~2020-07-10 | XMS | Encounter Summary ---
Demographics + + + | Address | [address] | | | [place] [address] | + + + | Home Phone | | + + + | Preferred Language | Unknown | + + + | Marital Status | | + + + | Islam Affiliation | Unknown | + + + | Race | White | + + + | Ethnic Group | Not or | + + + Author + + + | Author | [facility] | | | and [place] | + + + | Organization | [facility] | | | and [...] [place] | | | | | [address] | | + + + + + | Roselia Hayes | ECON | Unknown | | + + + + + Care Team Providers + +------+ + | Care Pressure Controller Name | Role | Phone | + +------+ + | Cesar Ojeda MD | PCP | | + +------+ + Reason for Visit + +--------+ + | Reason | Onset | Comments | | | Date | | + +--------+ + | Medication Refill | 03/19/ | | | | 2018 | | + +--------+ + Encounter Details +--------+--------+ + + + | Date | Type | Department | Care Team | Description | +--------+--------+ + + + | 03/19/ | Refill | [facility] | Franck Tsai MD | Medication Refill | | 2018 | | CARDIOLOGY [address] | | | | | [place] [facility] [place], | [place] | | | | | [place] [address] | [id number] | | | | | [phone] | | | +--------+--------+ + + + Social History + +-------+ +--------+ + | Tobacco Use | Types | Packs/Day | Years | Date | | | | | Used | | + +-------+ +--------+ + | Former Smoker | | | | Quit: 10/23/1975 | + +-------+ +--------+ + + +---+---+---+ | Smokeless Tobacco: | | | | | Never Used | | | | + +---+---+---+ + + +---------+ + | Alcohol Use | Drinks/Week | oz/Week | Comments | + + +---------+ + | No | | | | + + +---------+ + + + + | Sex Assigned at | Date Recorded | | | | + + + | Not on file | | + + + documented as of this encounter Functional Status + + + [...] Not on filedocumented as of this encounter Visit Diagnoses Not on filedocumented in this encounter"
--- OUTSIDE RECORDS SUMMARY | ~2020-07-10 | XMS | Encounter Summary ---
Demographics + + + | Address | [address] | | | [place] [address] | + + + | Home Phone | | + + + | Preferred Language | Unknown | + + + | Marital Status | | + + + | Yarsani Affiliation | Unknown | + + + [...] [place] | | | | | [address] | | + + + + + | Roselia Hayes | ECON | Unknown | | + + + + + Care Team Providers + +------+ + | Care Detective Sergeant Name | Role | Phone | + +------+ + | Cesar Ojeda MD | PCP | | + +------+ + Encounter Details +--------+ + + + + | Date | Type | Department | Care Team | Description | +--------+ + + + + | 11/20/ | Orders Only | [facility] [place] | Priscilla Durant, | | | 2019 | | CARDIOLOGY [address] | RN | | | | | [place], | | | | | | [place] [address] | | | | | | [phone] | | | +--------+ + + + + Social History + + + +--------+ + | Tobacco Use | Types | Packs/Day | Years | Date | | | | | Used | | + + + +--------+ + | Former Smoker | Cigarettes | 1 | 15 | Quit: 10/23/1975 | + + + +--------+ + + +---+---+---+ | Smokeless Tobacco: | | | | | Never Used | | | | + +---+---+---+ + + | Comments: smoked up to 5 packs per day | + + + + +---------+ + | Alcohol [...]
--- OUTSIDE RECORDS SUMMARY | ~2020-07-10 | XMS | Encounter Summary ---
Demographics + + + | Address | [address] | | | [place] [address] | + + + | Home Phone | | + + + | Preferred Language | Unknown | + + + | Marital Status | | + + + | Worship Affiliation | Unknown | + + + | Race | White | + + + | Ethnic Group | Not or | + + + Author + + + | Author | [facility] | | | and [place] | + + + | Organization | [facility] | | | and [place] | + + + | Address | Unknown | + + + | Phone | Unavailable | + + + Support + + + + + | Name | Relationship | Address | Phone | + + + + + | Guera Stark | ECON | [address] | | | | | [place] | | | | | [address] | | + + + + + | Roselia Hayes | ECON | Unknown | | + + + + + Care Team Providers + +------+ + | Care Health And Safety Technician Name | Role | Phone | + [...] + + | 03/29/ | Office | [facility] | Franck Tsai MD | Coronary artery | | 2018 | Visit | CARDIOLOGY [address] | [address] | disease involving | | | | [place], | [place], [place] | wiyot coronary | | | | [place] [address] | [address] | artery of wiyot | | | | [phone] | | heart without angina | | [...] + | Blood Pressure | 150/80 | 03/29/2018 9:36 AM | | | | | PDT | | + + + + + | Pulse | 58 | 03/29/2018 9:36 AM | | | | | PDT | | + + + + + | Temperature | - | - | | + + + + + | Respiratory Rate | 16 | 03/29/2018 9:36 AM | | | | | PDT | | + + + + + | Oxygen Saturation | - | - | | + + + + + | Inhaled Oxygen | - | - | | | Concentration | | | | + + + + + | Weight | 78 kg (171 lb 15.3 | 03/29/2018 9:36 AM | | | | oz) | PDT | | + + + + + | Height | 170.2 cm (5' 7") | 03/29/2018 9:36 AM | | | | | PDT | | + + + + + | Body Mass Index | 26.93 | 03/29/2018 9:36 AM | | | | | PDT [...] + + documented as of this encounter Patient Instructions Patient Instructions Priscilla Durant RN - 03/29/2018 10:00 AM PDT Increase Lisinopril to 20mg twice daily Finish out current supply of Clopidogrel (Plavix) then stop. Follow up appointment: 1 year - we will call you to arrange this appointment closer to the due date. Provider: Franck Tsai MD Date: Check-In Time: documented in this encounter Progress Notes Franck Tsai MD - 03/29/2018 10:00 AM PDT PATIENT NAME: Lokesh Stark : 1940: AGE: [...] Inferior leads Confirmed by RYLAN DE SANTIAGO, AMINA ([id number]) on 03/29/2018 2:25:28 PM IMAGING: No results found. Resting ECG 03/29/18: Sinus bradycardia 55 bpm, left axis deviation, old inferior infarctio n, diffuse nonspecific T-wave abnormality, when compared with prior ECG dated 12/26/16, the inferior and anterior lateral T-wave inversions are now either flat or upright DIAGNOSES AND ASSESSMENTS: 1. Coronary atherosclerosis: The patient is clinically stable status post PCI in 2016 in [facility] 2017. We discussed the duration of [...] this patient. Franck Tsai MD, 03/30/2018 11:59 documented in this enc ounter Plan of Treatment Not on filedocumented as of this encounter Procedures + +--------+ + + + | Procedure Name | Priori | Date/Time | Associated Diagnosis | Comments | | | ty | | | | + +--------+ + + + | ECG 12 LEAD | Routin | 03/29/2018 | Coronary artery | Results for this | | | e | 9:40 AM | disease involving | procedure are in the | | | | PDT | wiyot coronary | results section. | | | | | artery of wiyot | | | | | | heart without angina | | | | | | pectoris | | + +--------+ + + + documented in this encounter Results ECG 12 lead (03/29/2018 9:40 AM PDT) + + + + + + | Component | Value | Ref Range | Performed | Pathologist | | | | | At | Signature | + + + + + + | VENTRICULAR | 55 | BPM | [facility] | | | RATE EKG | | | | | + + + + + + | ATRIAL RATE | 55 | BPM | [facility] | | + + + + + + | P-R | 158 | ms | [facility] | | | INTERVAL | | | | | + + + + + + | QRS | 88 | ms | [facility] | | | DURATION | | | | | + + + + + + | Q-T | 418 | ms | [facility] | | | INTERVAL | | | | | + + + + + + | Q-T | 399 | ms | [facility] | | | INTERVAL | | | | | | (CORRECTED) | | | | | + + + + + + | P WAVE AXIS | 52 | degrees | [facility] | | + + + + + + | QRS AXIS | -48 | degrees | [facility] | | + + + + + + | T AXIS | 141 | degrees | [facility] | | + + + + + + | INTERPRETAT | Sinus bradycardiaLeft | | [facility] | | | ION TEXT | anterior fascicular | | | | | | blockInferior infarct | | | | | | (cited on or before | | | | | | 25-DEC-2016)Abnormal | | | | | | ECGWhen compared with | | | | | | ECG of 26-DEC-2016 | | | | | | 04:18,Left anterior | | | | | | fascicular block is now | | | | | | presentT wave inversion | | | | | | no longer evident in | | | | | | Inferior leadsConfirmed | | | | | | by RYLAN DE SANTIAGO, AMINA | | | | | | ([id number]) on 03/29/2018 | | | | | | 2:25:28 PM | | | | + + + [...] | | | + +---------+ + + documented in this encounter Visit Diagnoses + + | Diagnosis | + + | 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
--- OUTSIDE RECORDS SUMMARY | ~2020-07-10 | XMS | Encounter Summary ---
Demographics + + + | Address | [address] | | | [place] [address] | + + + | Home Phone | | + + + | Preferred Language | Unknown | + + + | Marital Status | | + + + | Pentecostal Affiliation | Unknown | + + + | Race | White | + + + | Ethnic Group | Not or | + + + Author + + + | Author | [facility] | | | and [place] | + + + | Organization | [facility] | | | and [...] [place] | | | | | [id number] | | + + + + + | Roselia Hayes | ECON | Unknown | | + + + + + Care Team Providers + +------+ + | Care Legal Counsel Name | Role | Phone | + [...] | | | | | | | 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 | | | | | | | Enlarged | | | | | | | prostate | | | | | | | with lower | | | | | | | urinary | | | | | | | tract | | | | | | | symptoms | | | | | | | 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], | | | | | | | Enlarged | | | | | | | prostate | | | | | | | with lower | | | | | | | urinary | | | | | | | tract | | | | | | | symptoms | | | | | | | [N40.1] | | | | | | | Procedures | | | | | | | [place] | | | | | | | CYSTOURETHRO | | | | | | | JAFULGUR | | | | | | | 2-5CM LESN | | | | | | | [place] | | | | | | | CYSTOURETHRO | | | | | | | SCOPY,URETER | | | | | | | CATHETER | | | | | | | [place] REIMPLANT | | | | | | | | | | | | | | URETER,SINGL | | | | | | | E URETER | | | | | | | PROSTATECTOM | | | | | | | Y RADICAL | | | +--------+--------+ + + + + Encounter Details +--------+ + + + + | Date | Type | Department | Care Team | Description | +--------+ + + + + | 12/11/ | Anesthesia | [facility] | Aristides Gibson MD | | | 2016 | Event | [facility] CTR [facility] | [address] | | | | | [address] | [place] | | | | | [place] | [id number] | | | | | [address] | | | | | | [phone] | | | +--------+ + + + + Anesthesia Record + + + + + | Procedure Name | Responsible | Anesthesia Start | Anesthesia Stop Time | | | Anesthesiologist | Time | | + + + + + | [facility] | Aristides Gibson MD | 12/11/15 0744 | 12/11/15 1039 | | Retrograde | | | | | Pyelogram, | | | | | Reimplantation of | | | | | Right Ureter | | | | | Ureteroneocystostomy | | | | | (Open Procedure) | | | | | (N/A Abdomen) | | | | + + + + + +----+---+ + + | Da | T | Event | Comment | | te | i | | | | | m | | | | | e | | | +----+---+ + + | 02 | 0 | An Checkout | Pre-use anesthesia machine/equipment checkout. | | /1 | 6 | | | | 9/ | 5 | | | | 20 | 9 | | | | 16 | | | | +----+---+ + + | | 0 | | | | | 7 | | | | | 0 | | | | | 8 | | | +----+---+ + + | | 0 | An Start | Reassessment prior to anesthesia induction/procedure. | | | 7 | | | | | 4 | | | | | 4 | | | +----+---+ + + | | 0 | Antibiotic | | | | 7 | Given | | | | 4 | | | | | 5 | | | +----+---+ + + | | 0 | Preoxygenat | | | | 7 | ed | | | | 4 | | | | | 8 | | | +----+---+ + + | | 0 | An | | | | 7 | Induction | | | | 4 | | | | | 9 | | | +----+---+ + + | | 0 | An | | | | 7 | Intubation | | | | 5 | | | | | 1 | | | +----+---+ + + | | 0 | [place] | | | | 7 | 43-degrees | | | | 5 | | | | | 8 | | | +----+---+ + + | | 0 | First | | | | 8 | Inc/Proc St | | | | 0 | | | | | 7 | | | +----+---+ + + | | 0 | an anni now | Cysto procedure finished | | | 8 | | | | | 4 | | | | | 6 | | | +----+---+ + + | | 0 | an anni now | Abdominal incision | | | 8 | | | | | 5 | | | | | 9 | | | +----+---+ + + | | 1 | [place] off | | | | 0 | | | | | 2 | | | | | 9 | | | +----+---+ + + | | 1 | Breathing | | | | 0 | Spontaneous | | | | 2 | ly | | | | 9 | | | +----+---+ + + | | 1 | Oropharynx | | | | 0 | Suctioned | | | | 3 | | | | | 3 | | | +----+---+ + + | | 1 | Extubated | | | | 0 | Deep | | | | 3 | | | | | 3 | | | +----+---+ + + | | 1 | an stop | | | | 0 | data | | | | 3 | | | | | 3 | | | +----+---+ + + | | 1 | An Stop | Patient handed off to recovery nurse. | | | 3 | | | | | 9 | | | +----+---+ + + +------+ | Meds | +------+ + + + | Name | Total | + + + | midazolam | 2 mg | + + + | fentaNYL | 250 mcg | + + + | propofol | 140 mg | + + + | lidocaine 2% | 50 mg | + + + | phenylephrine | 600 mcg | + + + | rocuronium | 70 mg | + + + | ceFAZolin in dextrose (ANCEF) | 2 g | | IVPB 2 g | | + + + | ketamine | 150 mg | + + + | HYDROmorphone | 1.5 mg | + + + | ondansetron | 4 mg | + + + | glycopyrrolate | 0.4 mg | + + + | neostigmine | 2 mg | + + + | lactated ringers (LR) infusion | 1,800 mL | + + + + + | Name | + + | N2O Flow Rate (L/Min) | + + | O2 Flow Rate (L/Min) | + + | Insp O2 | + + | Exp SEV | + + | Air Flow Rate (L/Min) | + + + + | No blood administrations on file. | + + +--------+ + + + | Type | Details | Placement | Removal | +--------+ + + + | Periph | 12/11/15; 0635; [id number] | 12/11/15 0635 by | 01/29/16 1120 by | | eral | catheter system; 20 gauge, 10/26 | Precious Wagner, | Roxane Lopez, | | IV | in length; intradermal injection, | RN | RN | | | tolerated well; no longer | | | | | indicated, removed per | | | | | policy/procedure; 01/29/16; 1120 | | | +--------+ + + + | Airway | Placement Date: 12/11/15; | 12/11/15 0751 by | 12/11/15 1033 by | | | Placement Time: 0751; Mask | Aristides Gibson MD | Aristides Gibson MD | | | Ventilation: EZ; Airway Grade: I; | | | | | Successful Technique: Mac; | | | | | Laryngoscope Blade Size: 3; | | | | | Attempts: 1; Airway Type: | | | | | endotracheal, oral, cuffed, | | | | | disposable; Size: 7.5; Airway | | | | | Tube Secured At: 23; Tube | | | | | Reference Point: lip; Trauma: | | | | | none; Placement Check: breath | | | | | sounds equal bilaterally, exhaled | | | | | CO2 detection device; Removal | | | | | Date: 12/11/15; Removal Time: | | | | | 1033 | | | +--------+ + + + | Read | 12/11/15; 0947; lower; abdomen; | 12/11/15 0947 by | 01/29/16 1648 by | | only - | 01/29/16; 1647 | Taylor Douglass, | Roxane Lopez, | | | | RN | RN | | Incisi | | | | | on | | | | +--------+ + + + | Urethr | 12/11/15; 1014; indicated due to | 12/11/15 1014 by | 01/29/16 1648 by | | al | specific surgical procedure; | Taylor Douglass, | Roxane Lopez, | | Cathet | indwelling triple lumen catheter; | RN | RN | | er | 20; 1; 10; 10; 01/29/16; 1648 | | | +--------+ + + + | Drain/ | 12/11/15; 1014; #1; Left; | 12/11/15 1014 by | 01/29/161655 by | | Device | collapsible closed device; 15fr | Taylor Douglass, | Roxane Lopez, | | Site | federico ; 01/29/16; 1656 | RN | RN | +--------+ + + + | Read | 12/11/15; 1026; Bilateral; | 12/11/15 1026 by | 01/29/16 1656 by | | only - | abdomen; 01/29/16; 165 | Taylor Douglass, | Roxane Lopez, | | | | RN | RN | | Incisi | | | | | on | | | | +--------+ + + + documented in this encounter Social History + +-------+ +--------+ + | Tobacco Use | Types | Packs/Day | Years | Date | | | | | Used | | + +-------+ +--------+ + | Former Smoker | | | | Quit: 10/23/1975 | + +-------+ +--------+ + + + + | Sex Assigned at | Date Recorded | | | | + + + | Not on file | | + + + documented as of this encounter OR Notes Anesthesia Postprocedure Evaluation - Aristides Gibson MD - 12/11/2015 5:34 PM Nydia de jesus of this note might be different from the original. ANESTHESIA POSTANESTHESIA EVALUATION Lokesh Stark 75 y.o. male 1940 [id number] Procedure(s) T.U.R.B.T., Retrograde Pyelogram, Reimplantation of Right Ureter Ureteroneocy stostomy (Open Procedure) (N/A Abdomen) Filed Vitals: 12/11/15 1450 12/11/15 1555 12/11/15 1720 BP: 141/75 162/83 Pulse: 95 91 Temp: 37.9 C (100.3 F) 38.6 C (101.4 F) 37.9 C (100.2 F) Resp: 20 20 SpO2: 96% 100% Cooperates? Yes Mental Status Performs simple tasks. Respiratory Satisfactory - Airway patent (self maintained). Cardiovascular Satisfactory Blood pressure and heart rate acceptable Temperature Satisfactory Pain Satisfactory N/V Control Satisfactory Hydration Satisfactory No signs of dehydration Complications None apparent Electronically signed by Aristides Gibson MD 12/11/2015 17:34 [facility] nesthesia Preprocedur e Evaluation - Aristides Gibson MD - 12/11/2015 7:02 AM PST ANESTHESIA PREANESTHESIA EVALUATION Lokesh Stark 75 y.o. male 1940 [id number] Procedure(s): T.U.R.B.T., Retrograde Pyelogram, Reimplantation of Right Ureter Ureteroneocy stostomy (Open Procedure) (N/A Abdomen) Medical history, anesthesia, medications, allergy, NPO status verified histories reviewed. Review of Systems / Med History Pulmonary (+) pneumonia Physical Exam Airway MP I, TM >3 FB, Mouth opening >2 FB. Neck: full ROM, extends >30 degrees. Jaw protrusi on normal. Dental Grossly normal except where noted below.; (+) dentures-lower and dentures-upper. CV Rhythm regular. Rate Normal. (-) murmur. Pulm Clear to auscultation bilaterally. Neuro Grossly normal. Anesthesia Plan ASA 3 Type: General. Induction: Intravenous. Potential problems: None anticipated. Monitors: Standard ASA monitors. Consent statement:Anesthetic plan, alternatives, risks and benefits discussed with patient. Risks discussed included (but were not limited to): sore throat, respiratory events, heart problems, dental injury, . Consenting person understands and agrees to proceed. documented in this enc ounter Plan of Treatment Not on filedocumented as of this encounter Visit Diagnoses Not on filedocumented in this encounter Administered Medications + +--------+ +------+------+------+ | Medication Order | MAR | Action | Dose | Rate | Site | | | Action | Date | | | | + +--------+ +------+------+------+ | ceFAZolin in dextrose (ANCEF) | Given | 12/11/19 | 2 g | | | | IVPB 2 g 2 g, Intravenous, | | 16 7:45 | | | | | Administer over 30 Minutes, Prior | | AM PST | | | | | to Incision, Starting Fri | | | | | | | 12/11/15 at 0641, For 1 dose, | | | | | | | Administer in OR, within 1 hour | | | | | | | of surgical incision. Adjust | | | | | | | administration schedule to match | | | | | | | OR schedule., Pre-op | | | | | | + +--------+ +------+------+------+ +---+---+ | | | +---+---+ + +-------+ +--------+---+---+ | fentaNYL injection | Given | 12/11/19 | 50 mcg | | | | Intravenous, PRN, Pain, Starting | | 16 9:06 | | | | | 12/11/15 at 0747, Anesthesia | | AM PST | | | | | Intra-op | | | | | | + +-------+ +--------+---+---+ +-------+ +--------+---+---+ | Given | 12/11/19 | 50 mcg | | | | | 16 8:37 | | | | | | AM PST | | | | +-------+ +--------+---+---+ | Given | 12/11/19 | 50 mcg | | | | | 16 8:10 | | | | | | AM PST | | | | +-------+ +--------+---+---+ +---+---+ | | | +---+---+ + +-------+ +--------+---+---+ | glycopyrrolate (ROBINUL) | Given | 12/11/19 | 0.4 mg | | | | injection Intravenous, PRN, | | 16 10:20 | | | | | Secretions, Starting 12/11/15 | | AM PST | | | | | at 1020, Anesthesia Intra-op | | | | | | + +-------+ +--------+---+---+ +---+---+ | | | +---+---+ + +-------+ +--------+---+---+ | HYDROmorphone (DILAUDID) 2 | Given | 12/11/19 | 0.5 mg | | | | mg/mL injection Intravenous, | | 16 10:23 | | | | | PRN, Pain, Starting 12/11/15 | | AM PST | | | | | at 0922, Anesthesia Intra-op | | | | | | + +-------+ +--------+---+---+ +-------+ +--------+---+---+ | Given | 12/11/19 | 0.5 mg | | | | | 16 10:05 | | | | | | AM PST | | | | +-------+ +--------+---+---+ | Given | 12/11/19 | 0.5 mg | | | | | 16 9:22 | | | | | | AM PST | | | | +-------+ +--------+---+---+ +---+---+ | | | +---+---+ + +-------+ +-------+---+---+ | ketamine 50 mg/mL injection | Given | 12/11/19 | 25 mg | | | | PRN, Starting 12/11/15 at | | 16 9:07 | | | | | 0749, Anesthesia Intra-op | | AM PST | | | | + +-------+ +-------+---+---+ +-------+ +-------+---+---+ | Given | 12/11/19 | 25 mg | | | | | 16 8:56 | | | | | | AM PST | | | | +-------+ +-------+---+---+ | Given | 12/11/19 | 25 mg | | | | | 16 8:26 | | | | | | AM PST | | | | +-------+ +-------+---+---+ +---+---+ | | | +---+---+ + +---------+ +---+---+---+ | lactated ringers (LR) infusion | New Bag | 12/11/19 | | | | | at 10-100 mL/hr, Intravenous, | | 16 8:37 | | | | | CONTINUOUS, Starting 12/11/15 | | AM PST | | | | | at 0700, TKO., Pre-op | | | | | | + +---------+ +---+---+---+ +---------+ +---+---+---+ | New Bag | 12/11/19 | | | | | | 16 7:00 | | | | | | AM PST | | | | +---------+ +---+---+---+ +---+---+ | | | +---+---+ + +-------+ +-------+---+---+ | lidocaine (PF) 2% injection | Given | 12/11/19 | 50 mg | | | | Intravenous, PRN, Starting Fri | | 16 7:49 | | | | | 12/11/15 at 0749, Anesthesia | | AM PST | | | | | Intra-op | | | | | | + +-------+ +-------+---+---+ +---+---+ | | | +---+---+ + +-------+ +------+---+---+ | midazolam (VERSED) 1 mg/mL | Given | 12/11/19 | 2 mg | | | | injection Intravenous, PRN, | | 16 7:41 | | | | | Anxiety, Starting 12/11/15 at | | AM PST | | | | | 0741, Anesthesia Intra-op | | | | | | + +-------+ +------+---+---+ +---+---+ | | | +---+---+ + +-------+ +------+---+---+ | neostigmine (BLOXIVERZ) 1 mg/mL | Given | 12/11/19 | 2 mg | | | | injection Intravenous, PRN, | | 16 10:20 | | | | | Starting 12/11/15 at 1020, | | AM PST | | | | | Anesthesia Intra-op | | | | | | + +-------+ +------+---+---+ +---+---+ | | | +---+---+ + +-------+ +------+---+---+ | ondansetron (ZOFRAN) injection | Given | 12/11/19 | 4 mg | | | | Intravenous, PRN, Nausea, | | 16 9:47 | | | | | Vomiting, Starting Mon12/11/15 at | | AM PST | | | | | 0947, Anesthesia Intra-op | | | | | | + +-------+ +------+---+---+ +---+---+ | | | +---+---+ + +-------+ +---------+---+---+ | phenylephrine (NOLVIA-SYNEPHRINE) | Given | 12/11/19 | 100 mcg | | | | 10 mg/mL injection Intravenous, | | 16 8:58 | | | | | PRN, Starting Mon12/11/15 at | | AM PST | | | | | 0756, Anesthesia Intra-op | | | | | | + +-------+ +---------+---+---+ +-------+ +---------+---+---+ | Given | 12/11/19 | 100 mcg | | | | | 16 8:48 | | | | | | AM PST | | | | +-------+ +---------+---+---+ | Given | 12/11/19 | 100 mcg | | | | | 16 8:18 | | | | | | AM PST | | | | +-------+ +---------+---+---+ +---+---+ | | | +---+---+ + +-------+ +-------+---+---+ | propofol (DIPRIVAN) injection | Given | 12/11/19 | 20 mg | | | | Intravenous, PRN, Starting Fri | | 16 10:24 | | | | | 12/11/15 at 0749, Anesthesia | | AM PST | | | | | Intra-op | | | | | | + +-------+ +-------+---+---+ +-------+ +-------+---+---+ | Given | 12/11/19 | 40 mg | | | | | 16 8:38 | | | | | | AM PST | | | | +-------+ +-------+---+---+ | Given | 12/11/19 | 80 mg | | | | | 16 7:49 | | | | | | AM PST | | | | +-------+ +-------+---+---+ +---+---+ | | | +---+---+ + +-------+ +-------+---+---+ | rocuronium (ZEMURON) injection | Given | 12/11/19 | 10 mg | | | | Intravenous, PRN, Starting Fri | | 16 9:24 | | | | | 12/11/15 at 0749, Anesthesia | | AM PST | | | | | Intra-op | | | | | | + +-------+ +-------+---+---+ +-------+ +-------+---+---+ | Given | 12/11/19 | 10 mg | | | | | 16 9:08 | | | | | | AM PST | | | | +-------+ +-------+---+---+ | Given | 12/11/19 | 10 mg | | | | | 16 8:51 | | | | | | AM PST | | | | +-------+ +-------+---+---+ +---+---+ | | | +---+---+ documented in this encounter"
--- OUTSIDE RECORDS SUMMARY | ~2020-07-10 | XMS | Encounter Summary ---
Demographics + + + | Address | [address] | | | [place] [address] | + + + | Home Phone | | + + + | Preferred Language | Unknown | + + + | Marital Status | | + + + | Latter-Day Affiliation | Unknown | + + + | Race | White | + + + | Ethnic Group | Not or | + + + Author + + + | Author | [facility] | | | and [place] | + + + | Organization | [facility] | | | and [...] [place] | | | | | [address] | | + + + + + | Roselia Hayes | ECON | Unknown | | + + + + + Care Team Providers + +------+ + | Care Slip Operator Name | Role | Phone | + +------+ + | Cesar Ojeda MD | PCP | | + +------+ + Reason for Visit +--------+--------+ + | Reason | Onset | Comments | | | Date | | +--------+--------+ + | Other | 07/12/ | | | | 2017 | | +--------+--------+ + Encounter Details +--------+ + + + + | Date | Type | Department | Care Team | Description | +--------+ + + + + | 07/12/ | Telephone | [facility] | Franck Tsai MD | Other | | 2017 | | CARDIOLOGY [address] | | | | | [place], | [place], [place] | | | | | [place] [address] | [id number] | | | | | [phone] | | | +--------+ + + + [...] + + documented as of this encounter Miscellaneous Notes Telephone Encounter - Celeste Kaur RN - 07/12/2018 3:57 PM PDTFaxed forms, demogra phics, insurance cards, and chart notes of Dr Tsai from 07/05/18 to [facility] [place] cardiac re hab ..........................................Celeste Kaur RN on 07/12/18 at 16:19 documented in thi s encounter Plan of Treatment Not on filedocumented as of this encounter Visit Diagnoses Not on filedocumented in this encounter"
--- OUTSIDE RECORDS SUMMARY | ~2020-07-10 | XMS | Clinical Summary ---
Demographics + + + | Address | [address] | | | [place] [address] | + + + | Home Phone | | + + + | Preferred Language | Unknown | + + + | Marital Status | | + + + | Latter-Day Affiliation | Unknown | + + + | Race | White | + + + | Ethnic Group | Not or | + + + Author + + + | Author | [facility] | | | and [place] | + + + | Organization | [facility] | | | [...] [place] | | | | | [address] | | + + + + + | Roselia Hayes | ECON | Unknown | | + + + + + Care Team Providers + +------+ + | Care Visual Arts Teacher Name | Role | Phone | + +------+ + | Cesar Ojeda MD | PCP | | + +------+ + Allergies + + + + + + | Active Allergy | Reactions | Severity | Noted | Comments | | | | | Date | | + + + + + + | Aspartame | Hives, Nausea And | Medium | 01/28/20 | | | | Vomiting | | 16 | | + + + + + + | Vegetable Oil | Sensitivity | | 12/02/19 | Severe congestion | | | | | 17 | | + + + + + + | Cat Hair Extract | Sensitivity | | 12/02/19 | Itching eye, runny | | | | | 17 | nose | + + + + + + | Penicillins | Other (See Comments) | Medium | 12/10/19 | "I went numb all | | | | | 16 | over after an | | | | | | injection" | + + + + + + Medications + + + +---------+------+------+-------+ | Medication | Sig | Dispensed | Refills | Star | End | Statu | | | | | | t | Date | s | | | | | | Date | | | + + + +---------+------+------+-------+ | fish oil 1,000 mg | Take 1,000 mg by | | 0 | | | Activ | | capsule | mouth 2 times daily. | | | | | e | + + + +---------+------+------+-------+ | atorvaSTATin | Take 80 mg by mouth | | 0 | | | Activ | | (LIPITOR) 80 MG | nightly. | | | | | e | | tablet | | | | | | | + + + +---------+------+------+-------+ | omeprazole | Take 20 mg by mouth | | 0 | | | Activ | | (PRILOSEC) 20 mg | every morning | | | | | e | | capsule | (before breakfast). | | | | | | + + + +---------+------+------+-------+ | cetirizine | Take 10 mg by mouth | | 0 | | | Activ | | (ZYRTEC) 10 mg | Daily. As needed. | | | | | e | | tablet | | | | | | | + + + +---------+------+------+-------+ | folic acid | Take 400 mcg by | | 0 | | | Activ | | (FOLVITE) 400 MCG | mouth Daily. | | | | | e | | tablet | | | | | | | + + + +---------+------+------+-------+ | cholecalciferol | Take 2,000 Units by | | 0 | | | Activ | | (VITAMIN D-3) 2000 | mouth Daily. | | | | | e | | UNITS TABS | | | | | | | + + + +---------+------+------+-------+ | Ascorbic Acid | Take 1,000 mg by | | 0 | | | Activ | | (VITAMIN C) 1000 MG | mouth Daily. | | | | | e | | tablet | | | | | | | + + + +---------+------+------+-------+ | Multiple | Take 1 tablet by | | 0 | | | Activ | | Vitamins-Minerals | mouth Daily. | | | | | e | | (CENTRUM SILVER | | | | | | | | ULTRA MENS) TABS | | | | | | | + + + +---------+------+------+-------+ | metFORMIN | Take by mouth | | 0 | | | Activ | | (GLUCOPHAGE-XR) 500 | Daily. Takes 1000 mg | | | | | e | | mg 24 hr tablet | in the am and 500 | | | | | | | | mg in the pm | | | | | | + + + +---------+------+------+-------+ | ferrous sulfate | Take 325 mg by mouth | | 0 | | | Activ | | 325 mg tablet | daily (with | | | | | e | | | breakfast). | | | | | | + + + +---------+------+------+-------+ | artificial tears | Place 1 drop into | | 0 | | | Activ | | (REFRESH PLUS) 0.5% | both eyes every 4 | | | | | e | | SOLN | hours as needed (dry | | | | | | | | eyes). | | | | | | + + + +---------+------+------+-------+ | aspirin 81 MG EC | Take 1 tablet by | 30 | 0 | 03/0 | | Activ | | tablet | mouth Daily. | tablet | | 8/20 | | e | | | | | | 17 | | | + + + +---------+------+------+-------+ | ONE TOUCH ULTRA | | | 99 | 02/1 | | Activ | | TEST strip | | | | 05/11 | | e | | | | | | 17 | | | + + + +---------+------+------+-------+ | MANUEL ESCALANTE | | | 99 | 02/1 | | Activ | | NORMA DRUMMOND | | | | 05/11 | | e | | | | | | 17 | | | + + + +---------+------+------+-------+ | furosemide (LASIX) | Take 20 mg by mouth | | 0 | 01/2 | | Activ | | 20 mg tablet | Daily. | | | 01/09 | | e | | | | | | 19 | | | + + + +---------+------+------+-------+ | potassium chloride | Take 10 mEq by mouth | | 0 | 01/2 | | Activ | | (KLOR-CON) 10 mEq | Daily. | | | 320 | | e | | CR tablet | | | | 19 | | | + + + +---------+------+------+-------+ | nitroglycerin | Take one tablet | 25 | 11 | 01/1 | | Activ | | (NITROSTAT) 0.4 mg | under tongue as | tablet | | 20 | | e | | SL tablet | needed for chest | | | 20 | | | | | pain, may repeat | | | | | | | | every 5 minutes up | | | | | | | | to 3 doses. If no | | | | | | | | relief after 3rd | | | | | | | | dose, call 911. | | | | | | + + + +---------+------+------+-------+ | metoprolol | Take 1 tablet by | 90 | 3 | 01/2 | | Activ | | succinate | mouth Daily. | tablet | | 07/12 | | e | | (TOPROL-XL) 25 mg 24 | | | | 20 | | | | hr tablet | | | | | | | + + + +---------+------+------+-------+ | clopidogrel | Take 1 tablet by | 90 | 3 | 04/0 | | Activ | | (PLAVIX) 75 mg | mouth Daily. | tablet | | 05/11 | | e | | tablet | | | | 20 | | | + + + +---------+------+------+-------+ | lisinopril | Take 1 tablet by | 90 | 3 | 04/0 | | Activ | | (PRINIVIL, ZESTRIL) | mouth Daily. 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 | 12/28/2016 | + + + | ST elevation myocardial infarction (STEMI) of inferior wall, | 12/25/2016 | | initial episode of care | | + + + | Dyslipidemia | 07/04/2016 | + + + | NSTEMI (non-ST elevated myocardial infarction) | 07/03/2016 | + + + | S/P CABG x 4 | 07/03/2016 | + + + + + | Overview: MARQUEZ to LAD | | SVG to PDA | | SVG to Diag | | SVG to OMB | + + + +---+ | Malignant neoplasm of bladder | | + +---+ | Coronary atherosclerosis | | + +---+ | Diabetes type 2, controlled | | + +---+ | Benign essential hypertension | | + +---+ Family History + +------+ + + | Relation | Name | Status | Comments | + +------+ + + | Brother | | | | + +------+ + + | Father | | | | + +------+ + + | Mother | | | | + +------+ + + Social History + + + [...] on file | | + + + Last Filed Vital Signs + + + + + | Vital Sign | Reading | Time Taken | Comments | + + + + + | Blood Pressure | 138/64 | 11/07/2019 9:25 AM | | | | | PST | | + + + + + | Pulse | 60 | 11/07/2019 9:25 AM | | | | | PST | | + + + + + | Temperature | 37 C (98.6 F) | 10/11/2019 10:43 AM | | | | | PST | | + + + + + | Respiratory Rate | 16 | 11/07/2019 9:25 AM | | | | | PST | | + + + + + | Oxygen Saturation | 94% | 10/11/2019 12:30 PM | | | | | PST | | + + + + + | Inhaled Oxygen | - | - | | | Concentration | | | | + + + + + | Weight | 72 kg (158 lb 11.7 | 11/07/2019 9:25 AM | | | | oz) | PST | | + + + + + | Height | 170.2 cm (5' 7") | 11/07/2019 9:25 AM | | | | | PST | | + + + + + | Body Mass Index | 24.86 | 11/07/2019 9:25 AM | | | | | PST | | + + + + + Plan of Treatment + + + + + | Health Maintenance | Due Date | Last | Comments | | | | Done | | + + + + + | Hepatitis C | | | | | Screening | 2 | | | + + + + + | Med Mgmt: Vit D | | | | | | 2 | | | + + + + + | Medication | | | | | Management | 2 | | | + + + + + | Diabetic Eye Exam | | | | | | 0 | | | + + + + + | Diabetic Foot Exam | | | | | | 0 | | | + + + + + | Vaccine: | | | | | Dtap/Tdap/Td (1 - | 1 | | | | Tdap) | | | | + + + + + | Vaccine: Zoster (1 | | | | | of 2) | 2 | | | + + + + + | Vaccine: | | | | | Pneumococcal 65+ (1 | 7 | | | | of 1 - PPSV23) | | | | + + + + + | Adult Annual | | | | | Wellness Visit | 5 | | | + + + + + | Hemoglobin A1c | | 08/13/20 | | | Screening | 0 | 19, | | | | | 08/01/20 | | | | | 16 | | + + + + + | Med Mgmt: HBA1C | | 08/13/20 | | | | 0 | 19, | | | | | 08/01/20 | | | | | 16 | | + + + + + | Vaccine: Influenza | | | | | (#1) | 0 | | | + + + + + | Med Mgmt: Cr | | 08/13/20 | | | | 0 | 19, | | | | | 08/13/20 | | | | | 19, | | | | | 11/28/19 | | | | | 19, | | | | | Addition | | | | | al | | | | | history | | | | | exists | | + + + + + | Med Mgmt: K | | 08/13/20 | | | | 0 | 19, | | | | | 08/13/20 | | | | | 19, | | | | | 11/28/19 | | | | | 19, | | | | | Addition | | | | | al | | | | | history | | | | | exists | | + + + + + | Med Mgmt: Na | | 08/13/20 | | | | 0 | 19, | | | | | 08/13/20 | | | | | 19, | | | | | 11/28/19 | | | | | 19, | | | | | Addition | | | | | al | | | | | history | | | | | exists | | + + + + + | Med Mgmt: eGFR | | 08/13/20 | | | | 0 | 19, | | | | | 08/13/20 | | | | | 19, | | | | | 11/28/19 | | | | | 19, | | | | | Addition | | | | | al | | | | | history | | | | | exists | | + + + + + Implants + +-------+--------+ +--------+--------+--------+ | Implanted | Type | Area | Manufacture | Device | Shelf | Model | | | | | r | | Expira | / | | | | | | Identi | tion | Serial | | | | | | fier | Date | / Lot | + +-------+--------+ +--------+--------+--------+ | Rebel Bare Metal | Stent | N/A: | [employer] | | 03/22/ | / | | StentImplanted: Qty: 1 on | | [place] | SCIENTIFIC | | 2018 | [id number] | | 07/03/2016 by Mi Mulligan | | ry | GREG[facility] [employer] | | | [id number] | | MD Dionicio at [facility] | | | | | | | | [facility] | | | | | | | + +-------+--------+ +--------+--------+--------+ | Promus PremierImplanted: Qty: | Stent | N/A: | [employer] | | 10/04/ | [id number] | | 1 on 12/25/2016 by Ese, | | Del [place]ario | SCIENTIFIC | | 2017 | [id number] | | Mi Greenberg MD at [facility] | | ry | [employer] | | | 50 / | | [facility] | | | | | | /[id number] | | | | | | | | 882 | + +-------+--------+ +--------+--------+--------+ | Stent Uro Unvrs Sft 6fr 26cm | | Right: | FREDA | | | [id number] | | - [id number]: Qty: 1 | | | [employer] | | | / | | on 12/11/2015 by Lyndon Romero | | Ureter | - FREDA | | | /[id number] | | MD Juancarlos at [facility] | | | | | | 00 | | [facility] | | | | | | | + +-------+--------+ +--------+--------+--------+ Results Not on filefrom Last 3 Months Insurance + +--------+ +--------+ + +--------+ | Payer | Benefi | Subscriber | Effect | Phone | Address | Type | | | t Plan | ID | davida | | | | | | / | | Dates | | | | | | Group | | | | | | + +--------+ +--------+ + +--------+ | MEDICARE | MEDICA | [id number] | 01/22/20 | [phone] | | Medica | | | RE | | 07-Pre | 5 | | re | | | PART A | | sent | | | | | | AND B | | | | | | + +--------+ +--------+ + +--------+ | MODA | MODA | [id number] | 10/23/19 | [phone] | [address] | Indemn | | | HEALTH | | 14-Pre | 9 | [phone] | ity | | | MDCR | | sent | | [place], | | | | [place] | | | | [place] [address] | | + +--------+ +--------+ + +--------+ + +--------+ +--------+ + + | Guarantor Name | Accoun | Relation to | Date | Phone | Billing Address | | | t Type | Patient | of | | | | | | | | | | + +--------+ +--------+ + + | Lokesh Stark | Person | Self [birth year] | [address] | | | al/Fam | | 1940 | [phone] | [place] | | | laurie | | | 8 (Home) | [phone] | | | | | | [phone] | | | | | | | 1 (Work) | | + +--------+ +--------+ + + | Lokesh Stark | Person | Self | [birth year] | [address] | | | al/Fam | | 1940 | [phone] | [place] | | | [place]ie | | | [address] (Home) | [address] | + +--------+ +--------+ + + Advance Directives + + + + + | Type | Date Recorded | Patient | Explanation | | | | Mine Deputy | | + + + + + | Power of | | | | | [place]veler | | | | + + + + + | Advance | 10/08/2019 | | | | Directive | 9:08 AM | | | + + + + + + + + + + | Code Status | Date | Date | Comments | | | Activated | Inactivated | | + + + + + | Full Code | 10/11/2019 | 10/11/2019 | | | | 11:02 AM | 3:24 PM | | + + + + + + + + +---+ | | | | | + + + +---+ | Full Code | 02/01/2019 | 02/01/2019 | | | | 2:26 PM | 6:11 PM | | + + + +---+ + + + +---+ | | | | | + + + +---+ | Full Code | 06/11/2018 | 06/13/2018 | | | | 5:25 PM | 1:25 PM | | + + + +---+ + + + +---+ | | | | | + + + +---+ | Full Code | 12/26/2016 | 12/28/2016 | | | | 10:39 AM | 11:58 AM | | + + + +---+ + + + +---+ | | | | | + + + +---+ | Full Code | 12/02/2016 | 12/02/2016 | | | | 12:32 PM | 4:16 PM | | + + + +---+
--- OUTSIDE RECORDS SUMMARY | ~2020-07-10 | XMS | Encounter Summary ---
Demographics + + + | Address | [address] | | | [place] [address] | + + + | Home Phone | | + + + | Preferred Language | Unknown | + + + | Marital Status | | + + + | Jainism Affiliation | Unknown | + + + | Race | White | + + + | Ethnic Group | Not or | + + + Author + + + | Author | [facility] | | | and [place] | + + + | Organization | [facility] | | | [...] [place] | | | | | [address] | | + + + + + | Roselia Hayes | ECON | Unknown | | + + + + + Care Team Providers + +------+ + | Care It Infrastructure Architect Name | Role | Phone | + +------+ + | Cesar Ojeda MD | PCP | | + +------+ + Encounter Details +--------+ + + + + | Date | Type | Department | Care Team | Description | +--------+ + + + + | 07/03/ | Orders Only | [facility] | Franck Tsai MD | NSTEMI (non-ST | | 2018 | | CARDIOLOGY [address] | elevated myocardial | | | | [place], | [place], [place] | infarction) (HCC) | | | | [place] [address] | [id number] | (Primary Dx) | | | | [phone] | | | +--------+ + + + [...] as of this encounter Plan of Treatment + +------+--------+ + + | Name | Type | Priori | Associated Diagnoses | Order Schedule | | | | ty | | | + +------+--------+ + + | ECG 12 lead | ECG | Routin | NSTEMI (non-ST | Expected: | | | | e | elevated myocardial | 07/10/2018, Expires: | | | | | infarction) ([facility]) | 07/03/2019 | + +------+--------+ + + documented as of this encounter Visit Diagnoses + + | Diagnosis | + + | NSTEMI (non-ST elevated myocardial infarction) ([facility]) - Primary Acute myocardial | | infarction, subendocardial infarction, episode of care unspecified | + + documented in this encounter"
--- OUTSIDE RECORDS SUMMARY | ~2020-07-10 | XMS | Encounter Summary ---
Demographics + + + | Address | [address] | | | [place] [address] | + + + | Home Phone | | + + + | Preferred Language | Unknown | + + + | Marital Status | | + + + | Judaism Affiliation | Unknown | + + + | Race | White | + + + | Ethnic Group | Not or | + + + Author + + + | Author | [facility] | | | and [place] | + + + | Organization | [facility] | | | [...] [place] | | | | | [address] | | + + + + + | Roselia Hayes | ECON | Unknown | | + + + + + Care Team Providers + +------+ + | Care Plastic Installer Name | Role | Phone | + +------+ + | Cesar Ojeda MD | PCP | | + +------+ + Reason for Visit + + + | Reason | Comments | + + + | Chest Pain | | + + + Auth/Cert +--------+--------+ + + + + | Status | Reason | Specialty | Diagnoses / | Referred By | Referred To | | | | | Procedures | Contact | Contact | +--------+--------+ + + + + | | | | Diagnoses | | | | | | | chest | | | | | | | pain | | | | | | | Procedures | | | | | | | CV LHC | | | +--------+--------+ + + + + Encounter Details +--------+ + + + + | Date | Type | Department | Care Team | Description | +--------+ + + + + | 12/25/ | Hospital | [facility] | Mi Le, | ST elevation | | 2017 - | Encounter | MED CTR ICU [address] | MD [address] | myocardial | | | | [place], | [place], [place] | infarction involving | | 12/28/ | | [place] [address] | [id number] | right coronary | | 2017 | | [phone] | | artery (HCC) | | | | | Lyndon Horton, | (Primary Dx); | | | | | MD [address] | 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[place], [place]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 | | | | | [id number] | 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 | | | | | | (HCC); S/P CABG x 4 | +--------+ + + + + Social [...] + + + | Blood Pressure | 119/72 | 12/28/2016 7:33 AM | | | | | PST | | + + + + + | Pulse | 62 | 12/28/2016 7:33 AM | | | | | PST | | + + + + + | Temperature | 36.4 C (97.5 F) | 12/28/2016 7:33 AM | | | | | PST | | + + + + + | Respiratory Rate | 16 | 12/28/2016 7:33 AM | | | | | PST | | + + + + + | Oxygen Saturation | 94% | 12/28/2016 7:33 AM | | | | | PST | | + + + + + | Inhaled Oxygen | - | - | | | Concentration | | | | + + + + + | Weight | 74.3 kg (163 lb 12.8 | 12/28/2016 4:17 AM | | | | oz) | PST | | + + + + + | Height | 170.2 cm (5' 7") | 12/25/2016 4:31 PM | | | | | PST | | + + + + + | Body Mass Index | 25.66 | 12/25/2016 4:31 PM | | | | | PST [...] documented as of this encounter Discharge Summaries Lyndon Horton MD - 12/28/2016 8:45 AM PST DISCHARGE SUMMARY PATIENT NAME/: Margarito Stakr, (1940) DATE OF ADMISSION: 12/25/2016 DATE OF DISCHARGE: 12/28/2016 ADMITTING DIAGNOSIS: ST elevation myocardial infarction (STEMI) of inferior wall, initial episode of care PRIMARY CARE PROVIDER: Cesar Ojeda MD DISCHARGE DIAGNOSES: 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 Acute inferior and inferolateral myocardial infarction Remote coronary artery bypass graft surgery Status post insertion of a drug-eluting stent Diabetes with nephropathy DISPOSITION: Discharge to home CARDIAC PROCEDURES AND FINDINGS: Coronary and graft angiography with insertion of coronary stent at the anastomosis of a saphenous vein graft with a left posterolateral. This was at a previously stented segment ( bare metal). A good angiographic result was obtained. SUMMARY OF HISTORY AND PHYSICAL: He developed anterior chest pain on the day of admission and was transported to our hospital by helicopter. He had a bare metal stent placed across the anastomosis of a saphenous vein graft with a left posterolateral in June 2016. He stopped Plavix in October or November 2016 in order to undergo surgery related to bladder an d prostate cancer. He has type II diabetes. Physical examination revealed pulmonary rales but was otherwise unremarkable BRIEF HOSPITAL COURSE: He went to the cardiac Fashion Illustrator immediately on admission. The prev iously placed stent was subtotally occluded with poor flow beyond. A drug-eluting stent was placed in this region. He had no evidence of heart failure. His blood pressure was too lo w to receive beta lenny and NAYE inhibitor for the first 2 days. His renal function deteri orated mildly area he was given 1 L fluid the day prior to discharge with improvement in cre atinine. He had salvos of nonsustained ventricular tachycardia throughout his hospital stay the last time occurring the night prior to discharge. OTHER FINDINGS OF NOTE: Metformin was not given and his blood sugars were mildly elevated. BRIEF EXAM TODAY: General Appearance - appears well. Heart - regular rate and rhythm, S1 and S2 normal, no murmur, rub, or gallop. Lungs - clear to auscultation bilaterally Neurologic - Grossly normal. MEDS: Discharge Medications New Medications Details aspirin 81 mg chewable tablet Replaces: aspirin 81 mg EC tablet Take 1 tablet by mouth Daily. Unchanged Medications Details artificial tears 0.5% Soln Place 1 drop into both eyes every 4 hours as needed (dry eyes). aka: REFRESH PLUS atorvaSTATin 80 MG tablet Take 80 mg by mouth nightly. aka: LIPITOR CENTRUM SILVER ULTRA MENS Tabs Take 1 tablet by mouth Daily. cetirizine 10 mg tablet Take 10 mg by mouth Daily. As needed. aka: zyrTEC cholecalciferol 2000 units Tabs Take 2,000 Units by mouth Daily. aka: VITAMIN D-3 clopidogrel 75 mg tablet Take 1 tablet by mouth Daily. aka: PLAVIX ferrous sulfate 325 mg tablet Take 325 mg by mouth daily (with breakfast). fish oil 1,000 mg capsule Take 1,000 mg by mouth 2 times daily. folic acid 400 MCG tablet Take 400 mcg by mouth Daily. aka: FOLVITE lisinopril 20 mg tablet Take 20 mg by mouth Daily. aka: PRINIVIL, ZESTRIL metFORMIN 500 mg 24 hr tablet Take 500 mg by mouth 2 times daily. aka: GLUCOPHAGE-XR nitroglycerin 0.[address] 1 tablet under the tongue every 5 minutes as needed for Chest pain. aka: NITROSTAT omeprazole 20 mg capsule Take 20 mg by mouth every morning (before breakfast). aka: priLOSEC vitamin C 1000 MG tablet Take 1,000 mg by mouth Daily. Discontinued Medications aspirin 81 mg EC tablet Replaced by: aspirin 81 mg chewable tablet PATIENT INSTRUCTIONS: ACTIVITY: No strenuous exercise for 6 weeks. Walk daily, increasing to 30 minutes of continuous exer cise by January 21. Avoid lifting or carrying over 25 pounds. DIET: diabetic diet; Mediterranean Diet. OTHER WRITTEN INSTRUCTIONS TO PATIENT: Discharge Instructions Discharge Instructions for Heart Attack You have had a heart attack (acute myocardial infarction). A heart attack occurs when a ves brooklynn that sends blood to your heart suddenly becomes blocked. This causes your heart not to w ork as well as it should. Follow these guidelines for home care and lifestyle changes. Home care Take your medicines exactly as directed. Don t skip doses. Talk with your healthcare latosha lópez if your medicines aren't working for you. Together you can come up with another suzy tmered plan. Remember that recovery after a heart attack takes time. Plan to rest for at least 4 to 8 weeks while you recover. Then return to normal activity when your doctor says it s OK. Ask your doctor about joining a heart rehabilitation program. This can help strengthen y our heart and lungs and give you more energy and confidence. Tell your doctor if you are feeling depressed. Feelings of sadness are common after a he art attack. But it is important to speak to someone or seek counselingif you are feeling o verwhelmed by these feelings. Call 911 right away if youhavechest pain or pain that goes to your shoulder, neck, o r back.Don't drive yourself to the hospital. Ask your family members to learn CPR. This is an important skill that can save lives whe n it's needed. Learn to take your own blood pressure and pulse. Keep a record of your results. Ask your doctor when you should seek emergency medical attention. He or she will tell you which bloo d pressure reading is dangerous. Lifestyle changes Your heart attack might have been caused by cardiovascular disease. Your healthcare provide r will work with you to make changes to your lifestyle. This will help the heart disease fro m getting worse. These changes will most likely be a combination of diet and exercise. Diet Your healthcare provider will tell you what changes you need to make to your diet. You may need to see a registered dietitian for help with these diet changes. These changes may inclu de: Cutting back on how much fat and cholesterol you eat Cutting back on how much salt (sodium) you eat, especially if you have high blood pressu re Eating more fresh vegetables and fruits Eating lean proteins such as fish, poultry, beans, and peas, and eating less red meat an d processed meats Using low-fat dairy products Using vegetable and nut oils in limited amounts Limiting how many sweets and processed foods such as chips, cookies, and baked goods you eat Limiting how often you eat out. And when you do eat out, making better food choices. Not eating fried or greasy foods, or foods high in saturated fat Exercise Your healthcare provider may tell you to get more exercise if you haven't been physically a ctive. Depending on your case, your provider may recommend that you get moderate to vigorous physical activity for at least 40 minutes each day, and for at least 3 to 4 days each week. A few examples of moderate to vigorous activity include: Walking at a brisk pace, about 3 to 4 miles per hour Jogging or running Swimming or water aerobics Hiking Dancing Martial arts Tennis Riding a bicycle or stationary bike Other changes Your healthcare provider may also recommend that you: Lose weight. If youare overweight or obese, your provider will work with you to lose e xtra pounds. Making diet changes and getting more exercise can help. A good goal is to lose your 10% of your body weight in one year. Stop smoking. Sign up for a stop-smoking program to make it more likely for you to quit for good. You can join a stop-smoking support group. Or ask your doctor about nicotine repla cement products. Learn to manage stress. Stress management techniques to help you deal with stress in you r home and work life. This will help you feel better emotionally and ease the strain on your heart. Follow-up Make a follow-up appointment as directed by our staff. When to seek medical advice Call 911 right awayif you have: Chest pain that goes to your neck, jaw, back, or shoulder Shortness of breath Otherwise, call your doctor immediately if you have: Lightheadedness, dizziness, or fainting Feeling of irregular heartbeat or fast pulse. Date Last Reviewed: 07/23/201619991908-7100 [employer]. [address] [place] [address]. All righ ts reserved. This information is not intended as a substitute for professional medical care. Always follow your healthcare professional's instructions. FOLLOW-UP: Follow up in January as already established with Dr. Le. Time spent on discharge planning: less than 30 minutes Portions of this chart may have been created with [employer] voice recognition software. Occasi onal wrong-word or sound-alike substitutions may have occurred due to the inherent hernandez itations of voice recognition software. Please read the chart carefully and recognize, using context, where these substitutions have occurred. documented in this encounter Discharge Instructions Instructions Lyndon Horton MD - 12/28/2016 Discharge Instructions for Heart Attack You have had a heart attack (acute myocardial infarction). A heart attack occurs when a ves brooklynn that sends blood to your heart suddenly becomes blocked. This causes your heart not to w ork as well as it should. Follow these guidelines for home care and lifestyle changes. Home care Take your medicines exactly as directed. Don t skip doses. Talk with your healthcare latosha lópez if your medicines aren't working for you. Together you can come up with another suzy tment plan. Remember that recovery after a heart attack takes time. Plan to rest for at least 4 to 8 weeks while you recover. Then return to normal activity when your doctor says it s OK. Ask your doctor about joining a heart rehabilitation program. This can help strengthen y our heart and lungs and give you more energy and confidence. Tell your doctor if you are feeling depressed. Feelings of sadness are common after a he art attack. But it is important to speak to someone or seek counselingif you are feeling o verwhelmed by these feelings. Call 911 right away if youhavechest pain or pain that goes to your shoulder, neck, o r back.Don't drive yourself to the hospital. Ask your family members to learn CPR. This is an important skill that can save lives whe n it's needed. Learn to take your own blood pressure and pulse. Keep a record of your results. Ask your doctor when you should seek emergency medical attention. He or she will tell you which bloo d pressure reading is dangerous. Lifestyle changes Your heart attack might have been caused by cardiovascular disease. Your healthcare provide r will work with you to make changes to your lifestyle. This will help the heart disease fro m getting worse. These changes will most likely be a combination of diet and exercise. Diet Your healthcare provider will tell you what changes you need to make to your diet. You may need to see a registered dietitian for help with these diet changes. These changes may inclu de: Cutting back on how much fat and cholesterol you eat Cutting back on how much salt (sodium) you eat, especially if you have high blood pressu re Eating more fresh vegetables and fruits Eating lean proteins such as fish, poultry, beans, and peas, and eating less red meat an d processed meats Using low-fat dairy products Using vegetable and nut oils in limited amounts Limiting how many sweets and processed foods such as chips, cookies, and baked goods you eat Limiting how often you eat out. And when you do eat out, making better food choices. Not eating fried or greasy foods, or foods high in saturated fat Exercise Your healthcare provider may tell you to get more exercise if you haven't been physically a ctive. Depending on your case, your provider may recommend that you get moderate to vigorous physical activity for at least 40 minutes each day, and for at least 3 to 4 days each week. A few examples of moderate to vigorous activity include: Walking at a brisk pace, about 3 to 4 miles per hour Jogging or running Swimming or water aerobics Hiking Dancing Martial arts Tennis Riding a bicycle or stationary bike Other changes Your healthcare provider may also recommend that you: Lose weight. If youare overweight or obese, your provider will work with you to lose e xtra pounds. Making diet changes and getting more exercise can help. A good goal is to lose your 10% of your body weight in one year. Stop smoking. Sign up for a stop-smoking program to make it more likely for you to quit for good. You can join a stop-smoking support group. Or ask your doctor about nicotine repla cement products. Learn to manage stress. Stress management techniques to help you deal with stress in you r home and work life. This will help you feel better emotionally and ease the strain on your heart. Follow-up Make a follow-up appointment as directed by our staff. When to seek medical advice Call 911 right awayif you have: Chest pain that goes to your neck, jaw, back, or shoulder Shortness of breath Otherwise, call your doctor immediately if you have: Lightheadedness, dizziness, or fainting Feeling of irregular heartbeat or fast pulse. Date Last Reviewed: 07/23/201619994886-4218 [employer]. [address] [place] [address], [place] [address]. All righ ts reserved. This information is [...] + + + +---------+ + + | artificial tears | Place 1 drop into | | 0 | | | | (REFRESH PLUS) 0.5% | both eyes every 4 | | | | | | SOLN | hours as needed (dry | | | | | | | eyes). | | | | | + + + +---------+ + + | Ascorbic Acid | Take 1,000 mg by | | 0 | | | | (VITAMIN C) 1000 MG | mouth Daily. | | | | | | tablet | | | | | | + + + +---------+ + + | aspirin 81 MG EC | Take 1 tablet by | 30 | 0 | 12/29/19 | | | tablet | mouth Daily. | tablet | | 17 | | + + + +---------+ + [...] + + + +---------+ + + | cholecalciferol | Take 2,000 Units by | | 0 | | | | (VITAMIN D-3) 2000 | mouth Daily. | | | | | | UNITS TABS | | | | | | + + + +---------+ + + | ferrous sulfate | Take 325 mg by mouth | | 0 | | | | 325 mg tablet | daily (with | | | | | | | breakfast). | | | | | + + + +---------+ + + | fish oil 1,000 mg | Take 1,000 mg by | | 0 | | | | capsule | mouth 2 times daily. | | | | | + + + +---------+ + + | folic acid | Take 400 mcg by | | 0 | | | | (FOLVITE) 400 MCG | mouth Daily. | | | | | | tablet | | | | | | + + + +---------+ + + | metFORMIN | Take by mouth | | 0 | | | | (GLUCOPHAGE-XR) 500 | Daily. Takes 1000 mg | | | | | | mg 24 hr tablet | in the am and 500 | | | | | | | mg in the pm | | | | | + + + +---------+ + + | Multiple | Take 1 tablet by | | 0 | | | | Vitamins-Minerals | mouth Daily. | | | | | | (CENTRUM SILVER | | | [...] + + + +---------+ + + | ONE TOUCH ULTRA | | | 99 | 12/09/19 | | | TEST strip | | | | 17 | | + + + +---------+ + + | MANUEL ESCALANTE | | | 99 | 12/09/19 | | | NORMA DRUMMOND | | | | 17 | | + + + +---------+ + + | clopidogrel | Take 1 tablet by | 90 | 2 | 07/28/20 | | | (PLAVIX) 75 mg | mouth Daily. | tablet | | 16 | 8 | | tablet | | | | [...] encounter Progress Notes Mehreen Waller PharmD - 12/28/2016 9:52 AM Erniedoyle Stark was admitted for STEMI and discharged home today (12/28/2016) Taught AVS education to patient. Education was focused on new medications and/or changed me dications. I explained indication, how to take, possible side effects, when to contact physi santi, and monitor parameters. The patient was reminded of follow-up appointment with plaster mold maker. The patient verbalized understanding of the above and all questions were answered. Pharmaci st will follow-up with patient in one to two business days. Patient was provided with a tyrell nciled discharge medication list as part of their AVS instructions. Encouraged patient to sh are medication list with healthcare providers and keep list current. Mehreen Waller PHARMD 12/28/2016 9:51 Lionel Nelson P harmD - 12/27/2016 4:02 PM PST PHARMACY SERVICES: ADMISSION MEDICATION REVIEW Margarito Stark is a 76 y.o. male admitted on 12/25/16. Patient is a reliable historian. Location of Patient when reviewed: [] ED [x] Medical Floor Patient s prior to admit medication and over the counter (OTC) medications/herbal supplem ents list obtained from: [x] Verbal interview [x] Patient ABLE to recall name, strength, directions [] Patient UNABLE to recall name, strength, directions [] Patient/family member provided a complete current medication list or bottles [] MAR from SNF facility: [] Doctor's office: [x] Pharmacy list names: johnny- loretta [] [facility] MANAGER TEST (Prescription Monitoring Program) [x] [facility] insurance reported information [] Care Everywhere [] Other sources: Vaccines up to date? Yes No Unsure Influenza [x] [] [] Pneumococcal [x] [] [] Tdap [] [x] [] Shingles [] [x] [] Noted medications discrepancies or medication-related issues: Medication added: Medication: Prior to Admission Sig: Metformin XR 500mg 2 tabs by mouth twice daily Refresh 0.5% 1 drop in each eye every 4 hours as needed for dry eyes Ferrous sulfate 325mg 1 tab by mouth every morning with breakfast Removed therapy: Medication: Prior to Admission Sig: Reason for Removal: Metformin 500mg 1 tab by mouth twice daily Wrong drug and sig Ferrous fumarate 325 Take by mouth Wrong drug Medication review performed and electronically signed by Sheila Sanchez 12/27/2016 15:57 Lionel Ware PHARMD 12/27/2016 16:01 erry, Lyndon Juárez MD - 12/27/2016 9:44 AM PST PATIENT NAME: Margarito Stark : 1940: AGE: 76 y.o. ADMISSION DATE: 12/25/2016 HOSPITAL DAY NUMBER: 2 PRIMARY CARE: Cesar Ojeda MD CONSULTING PROVIDER: Lyndon Horton MD CARDIOLOGY PROGRESS NOTE DATE OF SERVICE: 12/27/16 SUBJECTIVE: He offers no complaints. He denies chest pressure or pain, shortness of breath, dyspnea wi th effort. OBJECTIVE: PHYSICAL EXAM Latest VS: BP 95/57 mmHg | Pulse 61 | Temp(Src) 36.9 C (98.4 F) (Oral) | Resp 17 | Ht 1.702 m (5' 7") | Wt 75.7 kg (166 lb 14.2 oz) | BMI 26.13 kg/m2 | SpO2 97% General No acute distress. Comfortable. Chest Effort and pattern are normal. Chest was is not tender. Breath sounds normal. No wheezes or rales present Cardiovascular CVP by exam: Normal, no HJR. Murmurs rubs or gallops: None Pulses unchanged. Normal Edema: none Gastrointestinal Abdomen: soft, not tender. Mental Status/Neurological Orientation, affect and mood: Appropriate. LABS Creatinine up to 1.46 from 1.23 yesterday and 1.19 on admission. CO2 up to 23, otherwise 'lytes are normal. WBC fell to normal. ECG: He has continued to have infrequent short nonsustained salvos of ventricular tachycar bell up to 5 beats in duration. ASSESSMENT: Cardiovascular: Large lateral, posterior and inferior myocardial infarction. Post infarction nonsustained ventricular tachycardia otherwise no apparent complications Mild hypotension has precluded use of beta blockers and naye inhibitors. Other: Deterioration in renal function PLAN or RECOMMENDATIONS: 1. IV fluid today 2. Lisinopril was discontinued 3. Beta lenny is being held. Portions of this report may have been transcribed using voice recognition software. Every effort was made to ensure accuracy, however, inadvertent utility specialist errors may be present . Electronically signed by: Lyndon Horton MD 12/27/2016 9:44 erry, Lyndon Juárez MD - 12/26/2016 3:55 PM PST PATIENT NAME: Margarito Stark : 1940: AGE: 76 y.o. ADMISSION DATE: 12/25/2016 HOSPITAL DAY NUMBER: 1 PRIMARY CARE: Cesar Ojeda MD CONSULTING PROVIDER: Lyndon Horton MD CARDIOLOGY PROGRESS NOTE DATE OF SERVICE: 12/26/16 SUBJECTIVE: He reports good night and morning. He has had no chest pain. He has had a couple of episo jose angel of dyspnea at rest. He denies palpitations. He has no gastrointestinal complaints. He offered no new complaints. Context: He was admitted yesterday afternoon with an acute inferior wall myocardial infarc tion. He had non-occlusive thrombosis at the distal segment of a saphenous vein bypass dell t to a dominant circumflex inserted into a large posterolateral branch. This was at the sit e of previous stenting. The initial stent bridged the anastomosis "jailing" the proximal ci rcumflex from graft flow. Dr. Le treated this with a long drug-eluting stent over the previous stent, covering it proximally and distally. OBJECTIVE: PHYSICAL EXAM Latest VS: BP 106/56 mmHg | Pulse 59 | Temp(Src) 36.5 C (97.7 F) (Oral) | Resp 16 | Ht 1.702 m (5' 7") | Wt 75.7 kg (166 lb 14.2 oz) | BMI 26.13 kg/m2 | SpO2 95% General No acute distress. Male of stated age of average build, conversant. Chest Effort and pattern are normal. Chest was is not tender. Heath inspiratory rales audible on the right lung field whereas the left posterior lung field is relatively clear. Cardiovascular CVP by exam: Normal Murmurs rubs or gallops: None Pulses unchanged. Palpable pedal and radial pulses. Right inguinal access site appea rs flat and normal. Edema: none Gastrointestinal Abdomen: soft, not tender. Mental Status/Neurological Orientation, affect and mood: Appropriate. LABS Troponin I this morning was greater than 100. Carbon dioxide level is low, 21. Anion gap is high. Other electrolytes are unremarkable. White count is down to 13.8. Hemoglobin and platelet count are normal. Creatinine is up slightly to 1.2 CK total is 2333, severely elevated. ALT and AST are both elevated, most likely due t o myocardial infarction. ECG: Initial tracing showed 1-[address] elevation in the inferior leads. Tracing followi ng intervention showed 2-[address] elevation in the inferior leads. Telemetry showed resol ution of the ST elevation over about 3 or 4 hours becoming normal before midnight. Twelve-l ead ECG this morning shows no ST elevation. Telemetry showed occasional bursts of nonsustained ventricular tachycardia with runs u p to 8 beats in duration. This continued overnight and through the morning. ASSESSMENT: Cardiovascular: Large myocardial infarction involving the lateral and inferior adame due to graft thrombosis to a dominant circumflex. Stenting of the distal segment of the thrombosed saphenous vein graft. PLAN or RECOMMENDATIONS: 1. Echocardiography tomorrow. 2. No change in current medical therapy at this moment. Portions of this report may have been transcribed using voice recognition software. Every effort was made to ensure accuracy, however, inadvertent utility specialist errors may be present . Electronically signed by: Lyndon Horton MD 12/26/2016 15:55 Chioma Perez RN - 12/26/2016 12:11 PM PSTStent education completed with discussion surrounding plavix a nd its importance to maintaining the medication. And cautioning prolonged periods of being o ff the medication. Pt. Verbalized the importance and understanding, and denies further ques tions as this is his second visit with us since June when we placed a stent at that carlitos e. Mi José MD - 12/25/2016 10:49 PM PSTVenous sheath removed and pressure held for 15 min No hematoma Distal pulse intact Urine remains clear documented in this e ncounter H&P Notes Mi Le MD - 12/25/2016 5:31 PM PSTFormatting of this note might be different fr om the original. Admission H&P Referring Provider: EMS Primary Care: Dr Guerrero Reason for Admission: Inferior STEMI 12/25/2016 Margarito Stark is a 76 y.o. male History of Present Illness: H/O NSTEMI in jun. He had a bare metal stent placed in the PDA via SVG. He has b een undergoing therapy for bladder cancer and hypertrophy of the prostate. He was taken off of Plavix last month to undergo surgery. He experienced bleeding when he attempted to restart it. Today he had the acute onset of anterior chest pain. He was seen by EMS and diagnosed with STEMI. He was given ASA and beta lenny and transported here by helicopter. He arrived here with improved chest pain that was still present. ECG showed STEMI. He was brought to the cardiac vat house laborer. He was found to have a thrombotic occlusion of the RCA graft. 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 Current Outpatient Prescriptions on File Prior to Encounter Medication Sig Dispense Refill Ascorbic Acid (VITAMIN C) 1000 MG tablet Take 1,000 mg by mouth Daily. aspirin 81 mg EC tablet Take 81 mg by mouth Daily. atorvaSTATin (LIPITOR) 80 MG tablet Take 80 mg by mouth nightly. cetirizine (ZYRTEC) 10 mg tablet Take 10 mg by mouth Daily. As needed. cholecalciferol (VITAMIN D-3) 2000 UNITS TABS Take 2,000 Units by mouth Daily. clopidogrel (PLAVIX) 75 mg tablet Take 1 tablet by mouth Daily. 90 tablet 2 Ferrous Fumarate 325 (106 FE) MG TABS Take by mouth. fish oil 1,000 mg capsule Take 1,000 mg by mouth 2 times daily. folic acid (FOLVITE) 400 MCG tablet Take 400 mcg by mouth Daily. lisinopril (PRINIVIL, ZESTRIL) 20 mg tablet Take 20 mg by mouth Daily. metFORMIN (GLUCOPHAGE) 500 mg tablet Take 1 tablet by mouth 2 times daily (with breakfa st & dinner). Resume on 07/05/16 (Patient taking differently: Take 1,000 mg by mouth 2 times daily (with breakfast & dinner). Resume on 07/05/16) 60 tablet Multiple Vitamins-Minerals (CENTRUM SILVER ULTRA MENS) TABS Take 1 tablet by mouth Dave y. nitroglycerin (NITROSTAT) 0.[address] 1 tablet under the tongue every 5 mya jacki as needed for Chest pain. 25 tablet 0 omeprazole (PRILOSEC) 20 mg capsule Take 20 mg by mouth every morning (before breakfast ). Allergies: Allergies Allergen Reactions Aspartame Hives and Nausea And Vomiting Cat Hair Extract Sensitivity Itching eye, runny nose Vegetable Oil Sensitivity Severe congestion Penicillins Other (See Comments) "I went numb all over after an injection" Family History: History reviewed. No pertinent family history. Social History: Social History Social History Marital Status: Spouse Name: N/A Number of Children: N/A Years of Education: N/A Occupational History Not on file. Social History Main Topics Smoking status: Former Smoker Quit date: 10/23/1975 Smokeless tobacco: Not on file Alcohol Use: No Drug Use: No Sexual Activity: Not on file Other Topics Concern Not on file Social History Narrative Review of Systems: Intermittent blood in urine Last was 1 day ago Urology felt he could resume Plavix They recommend 1 year follow up Otherwise no symptoms No neuro symptoms Reviewed 10 systems, all were negative except as listed in HPI Physical Exam: BP 159/96 mmHg | Pulse 113 | Resp 18 | Ht 1.702 m (5' 7") | Wt 76.204 kg (168 lb) | BMI 26. 31 kg/m2 | SpO2 92% Physical Exam Constitutional: He is oriented to person, place, and time. He appears well-developed and we ll-nourished. He appears distressed. HENT: Head: Normocephalic and atraumatic. Eyes: Conjunctivae and EOM are normal. No scleral icterus. Neck: Normal range of motion. Neck supple. No JVD present. Cardiovascular: Normal rate and regular rhythm. Exam reveals no gallop and no friction rub . Murmur heard. Pulmonary/Chest: Effort normal. He has rales. Abdominal: Soft. Bowel sounds are normal. There is no tenderness. There is no rebound and n o guarding. Lymphadenopathy: He has no cervical adenopathy. Neurological: He is alert and oriented to person, place, and time. Skin: Skin is warm and dry. He is not diaphoretic. Psychiatric: He has a normal mood and affect. grade 1/6 JESICA Test Results: Recent Results (from the past 24 hour(s)) ECG 12 lead Result Value Ref Range VENTRICULAR RATE EKG 89 BPM ATRIAL RATE 241 BPM QRS DURATION 98 ms Q-T INTERVAL 362 ms Q-T INTERVAL (CORRECTED) 440 ms QRS AXIS 19 degrees T AXIS 107 degrees INTERPRETATION TEXT Atrial fibrillation Inferior infarct , possibly acute Marked ST abnormality, possible anteroseptal subendocardial injury ACUTE CO / STEMI Consider right ventricular involvement in acute inferior infarct Abnormal ECG When compared with ECG of 03-JUL-2016 10:40, Significant changes have occurred Confirmed by MI LE MD ([id number]) on 12/25/2016 7:41:13 PM CBC with Differential Result Value Ref Range WBC 20.3 (H) 4.0-11.0 K/uL RBC 5.16 4.30-5.70 M/uL Hgb 14.9 13.5-18.0 g/dL Hct 45.3 40.0-51.0 % MCV 87.8 83.0-101.0 fL MCH 28.8 28.0-35.0 pg MCHC 32.9 32.0-36.0 g/dL RDW-CV 15.0 (H) <15.0 % Platelet Count 390 140-440 K/uL MPV 9.1 fL % Neutrophils 47.5 45.0-82.0 % % Lymphocytes 39.2 20.0-45.0 % % Monocytes 7.3 4.0-12.0 % % Eosinophils 5.4 (H) 0.0-5.0 % % Basophils 0.6 0.0-1.0 % Absolute Neutrophils 9.70 (H) 1.80-8.50 K/uL Absolute Lymphocytes 8.00 (H) 0.60-3.20 K/uL Absolute Monocytes 1.50 (H) 0.00-1.00 K/uL Absolute Eosinophils 1.10 (H) 0.00-0.40 K/uL Absolute Basophils 0.10 0.00-0.10 K/uL Comprehensive Metabolic Panel Result Value Ref Range NA 140 136-149 mmol/L K 3.9 3.5-5.1 mmol/L CL 111 (H) 98-109 mmol/L CO2 16 (L) 24-31 mmol/L ANION GAP 13 3-16 mmol/L GLUCOSE 210 (H) 70-109 mg/dL BUN 15 7-18 mg/dL Creatinine, Serum/Plasma 1.19 0.60-1.30 mg/dL eGFR if not 60 >=60 mL/min/1.73m2 CALCIUM 8.8 8.3-10.5 mg/dL ALBUMIN 3.8 3.2-5.0 g/dL BILIRUBIN TOTAL 0.5 0.1-1.5 mg/dL Total protein 6.5 6.0-7.8 g/dL AST 30 10-42 U/L ALT 38 6-45 U/L ALK PHOS 92 40-110 U/L GLOBULIN 2.7 2.1-3.8 g/dL Albumin/Globulin ratio 1.4 0.8-2.0 BUN/CREA 12.6 Troponin I Result Value Ref Range Troponin I 0.04 <0.06 ng/mL Magnesium Result Value Ref Range MG 1.6 (L) 1.8-2.5 mg/dL Extra Lavender Top Tube Result Value Ref Range Extra Lavender Top Tube Done Extra Blue Top Tube Result Value Ref Range Extra Blue Top Tube Done Impression/Plan: 1. Inferior STEMI 2. Recent bladder and prostate surgery 3. H/O CABG 4. Dyslipidemia Plan: Risk and benefit reviewed in the ER Bleeding is the major concern - given the current situation best option is JOSE ANGEL He agrees to proceed. documented in this e ncounter Procedure Notes Mi Le MD - 12/25/2016 9:14 PM PSTAssociated Order(s): CV CARDIAC PROCEDUREForm atting of this note might be different from the original. Margarito Stark is a 76 y.o. male patient. No diagnosis found. 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 rate 22, height 1.702 m (5' 7"), weight 76.204 kg (168 lb), SpO2 96 %. CV Cardiac Procedure Date/Time: 12/25/2016 21:14 Performed by: MI LE Authorized by: MI [...] verify the correct elkin ent, procedure, equipment, technical support analyst and site/side marked as required. Preparation: Patient was prepped and draped in the usual sterile fashion. Local anesthesia used: yes Local anesthetic: lidocaine 1% without epinephrine Patient sedated: yes Sedatives: fentanyl and midazolam Vitals: Vital signs were monitored during sedation. Patient tolerance: Patient tolerated the procedure well with no immediate complications LEFT CARDIAC CATHETERIZATION AND CORONARY INTERVENTION REPORT PATIENT NAME: Margarito Stark DATE OF : 1940 DATE OF PROCEDURE: 12/25/2016 PRIMARY CARE PROVIDER: Cesar Ojeda MD WALLPAPER INSPECTOR: Dr. Mi Le MD, [facility], [facility] PRE-PROCEDURE DIAGNOSIS: STEMI POST-PROCEDURE DIAGNOSIS: Same PROCEDURES PERFORMED: 1. Left Heart Catheterization for pressures 2. Coronary Angiography 3. Left Ventriculography 4. Percutaneous coronary intervention JOSE ANGEL to the PDA via the RCA graft 5. Graft angiography CAD Presentation: STEMI Anginal Classification (within 2 weeks): none Anti-Anginal med (within 2 weeks): yes Heart Failure (within 2 weeks): no Cardiomyopathy or LV Systolic Dysfunction: no Cardiogenic shock w/in 24 hours: no Pre-operative Evaluation Before Non-Cardiac Surgery: no Cardiac Arrest w/in 24 hours: no Evaluation of valvular heart disease: no Stress or Imaging Studies Performed: no Echocardiogram no Patient Risk factors: Age 76 y.o. advanced age (older than 55 for men, 65 for women), dyslipidemia, family history of prematu re cardiovascular disease, hypertension and male gender; Diabetes Mellitus on Insulin: no Prior PCI: yes Estimated Creatinine Clearance: 51 mL/min (based on Cr of 1.19). kidney dx: yes Chronic Lung disease: no BMI: Body mass index is 26.31 kg/(m^2). History of PAD: no Prior history of CVA: no 2. Indication For Coronary Revascularization Please indicate one of the following if PCI is performed: STEMI By AUC criteria, PCI is Appropriate Appropriate Use Calculator - PCI STEMI or Suspected STEMI Appropriate care Indication 2 Score 9 DESCRIPTION OF PROCEDURE: Informed consent was obtained from the patient, and a time-out was performed to verify the patient's identification and planned procedure. Please refer to the computer log entry form for precise details. The patient's right groin was then prepped and draped in the usual st erile fashion, and anesthetized with 1% lidocaine. A 6 F sheath was inserted. A 4 cameroonian she ath was placed in the vein. Coronary angiography was performed in multiple views using Fr ench LCB and IM diagnostic catheters. The LCB was used to measure EDP and A pullback across the valve was used to assess if there was a gradient across the aortic valve. A . The patient's anticoagulation regimen consisted of Bivalirudin. A MPA guide was used t o cannulate the SVG to the RCA vessel. The lesion was crossed with the PT choice with the h elp of a Forte Floppy and a whisper wire. It was pre dilated with 2.5 X 15 [place] balloon. T he lesion was then treated with a 2.5 X 24 Promus JOSE ANGEL stent deployed at 16 EVA. Angioseal was utilized to achieve successful hemostasis in the femoral artery. The re were no immediate complications. The venous sheath was sutured in place Estimated blood loss was: 10 cc. Fluro Time: 16.6 min Total Radiation Area Dose: 105.82 GYCM2 Contrast: 185 mls of Omnipaque 350 FINDINGS: Hemodynamics: Left ventricular end-diastolic pressure (LVEDP) was 19 mm Hg. There was no gradient acro ss the aortic valve. Left Ventriculography: Not performed Left main coronary artery: Known to be normal not re imaged as the LAD and LCX were 100% o ccluded. Left anterior descending coronary artery: Seen filling via the MARY graft. No disease beyo nd the insertion of the graft Circumflex coronary artery: 100% - fed via collaterals from the RCA graft Right coronary artery: 100%. Fed vial the SVG. SVG is thrombotic occlusion. Post intervention: RCA graft is flowing PRINCESS 3 and there is no residual stenosis in the marycarmen nted segment Left Ventriculography: Not performed Graft Angiography: MARY to the LAD: Patent no disease SVG to the LCX: 100% occluded SVG to the Diagonal: Excellent graft. Feeds the diagonal antegrade and the proximal LAD retrograde. competitive flow from MARY to the distal vessel SVG to the PDA:thrombotic occlusion. Following JOSE ANGEL stent placement normal PRINCESS 3 flow wi thout residual stenosis CONCLUSIONS: 1. Thrombotic occlusion of the RCA graft treated with PTCA and JOSE ANGEL stent placement 2. 100% occlusion of the [place] circulation 3. Patent MARY to the LAD 4. Patent SVG to the Diagonal CLINICAL IMPRESSION AND RECOMMENDATIONS Plavix for 1 year Mi Le MD, FACC, [facility] DATE/TIME: 12/25/2016 21:15 12/25/2016 21:15 Portions of this chart were created with [employer] voice recognition software. Occasional wron g-word or sound-alike substitutions may have occurred due to the inherent limitations of voice recognition software. Please contact me if there are any questions regarding any a spects of the above report. Mi Le 12/25/2016 documented in this e ncounter ED Notes Mi Le MD - 12/26/2016 1:02 AM PSTPlease see H&P by me EseElectronically s igned by Mi Le MD at 12/26/2016 1:03 AM Serina Bruno RN - 12/25/2016 4:28 PM PSTBed: ED08 Expected date: 12/25/16 Expected time: 1618 Means of arrival: ALS Ambulance Comments: STEMI documented in this encounter Miscellaneous Notes Plan of [place] - Annette Kaiser RN - 12/28/2016 4:22 AM PSTProblem: Patient Care Loly rosenthal (Adult) Goal: Care Team Goals & Evaluation PROBLEM-RELATED GOALS: 1. Will maintain adequate oxygenation via oximetry with SpO2 >92 by 12/26/2016. 2. Pt will be chest pain free by 12/27/16 3. Pt will have no new active bleeding by 12/27/16 STRATEGY TO ACHIEVE GOALS: Activity as tolerated, encourage ambulation in halls. Provide O2 as needed. Monitor for S/S bleeding, including labs. RESTRAINT-RELATED GOALS: STRATEGIES TO ACHIEVE RESTRAINT GOALS: Monitor saturations via oximetry every 4 and titrate to order as indicated. Outcome: Improving Goal Evaluation: Pt slept well between care. Uses call light appropriately. Independent in halls for ambula tion. No pain, no CP. Pt is anticipating d/c home today. lan of Care - Carolin Mercedes RN - 12/26/2016 4:12 PM PSTProblem: Discharge Planning Goal: Patient will be discharged in a safe manner Outcome: Improving This CM met with both patient and his to discuss his discharge plan. He states that he is not homebound and lives independently with his in [place], [place], and she will be transporting him back home at discharge. He does not use any home 02 or CPAP, nor any DME for his mobility. He still drives. He also confirmed his PCP is Cesar Ojeda and his pharmacy is [facility] both of which are in [place]. Patient and his do not anticipate any discharge needs.Electronically signed by: Carolin neri RN 12/26/2016 16:12 lan of Care - Doug Hoffman Chaplain - 12/26/2016 9:19 AM PST Spiritual Care Margarito Stark is a 76 y.o. male who is admitted for chest pain. Spiritual Evaluation: Active Jew, Spiritual Intervention: Active listening/pastoral support provided. Spiritual Outcomes: Patient appreciates and is grateful for quality improvement analyst's visit. Spiritual Goals / Follow-up: Will see the patient as requested. If there are any other spiritual care issues that arise, please contact quality improvement analyst. lan of Care - Margarito Gifford RRT - 12/25/2016 10:25 PM PSTProblem: Patient Care Overview (Adult) Goal: Care Team Goals & Evaluation PROBLEM-RELATED GOALS: 1. Will maintain adequate oxygenation via oximetry with SpO2 >92 by 12/26/2016. STRATEGY TO ACHIEVE GOALS: RESTRAINT-RELATED GOALS: STRATEGIES TO ACHIEVE RESTRAINT GOALS: Monitor saturations via oximetry every 4 and titrate to order as indicated. Outcome: Improving Goal Evaluation: Patient post cath, on 3 l/m nasal cannula. Sats 95%. Resting quielty D Triage Notes - Adriana Louis RN - 12/25/2016 4:28 PM PSTPt here for STEMI per [facility].Froilan michaelsy signed by Adriana Louis RN at 12/25/2016 4:28 PM PSTdocumented in this encounter Plan of Treatment Not on filedocumented as of this encounter Procedures + +--------+ + + + | Procedure Name | Priori | Date/Time | Associated Diagnosis | Comments | | | ty | | | | + +--------+ + + + | EXTRA LAVENDER TOP | Routin | 12/28/2016 | | Results for this | | TUBE | e | 4:14 AM | | procedure are in the | | | | PST | | results section. | + +--------+ + + + | TROPONIN I | Routin | 12/28/2016 | | Results for this | | | e | 4:14 AM | | procedure are in the | | | | PST | | results section. | + +--------+ + + + | COMPREHENSIVE | Routin | 12/28/2016 | | Results for this | | METABOLIC PANEL | e | 4:14 AM | | procedure are in the | | | | PST | | results section. | + +--------+ + + + | TROPONIN I | Routin | 12/27/2016 | | Results for this | | | e | 5:15 PM | | procedure are in the | | | | PST | | results section. | + +--------+ + + + | ECHO COMPLETE | Routin | 12/27/2016 | | Results for this | | | e | 9:19 AM | | procedure are in the | | | | PST | | results section. | + +--------+ + + + | TROPONIN I | Routin | 12/27/2016 | | Results for this | | | e | 5:14 AM | | procedure are in the | | | | PST | | results section. | + +--------+ + + + | CBC WITH | Routin | 12/27/2016 | | Results for this | | DIFFERENTIAL | e | 5:14 AM | | procedure are in the | | | | PST | | results section. | + +--------+ + + + | BASIC METABOLIC | Routin | 12/27/2016 | | Results for this | | PANEL | e | 5:14 AM | | procedure are in the | | | | PST | | results section. | + +--------+ + + + | TROPONIN I | Routin | 12/26/2016 | | Results for this | | | e | 4:58 PM | | procedure are in the | | | | PST | | results section. | + +--------+ + + + | CBC WITH | Routin | 12/26/2016 | | Results for this | | DIFFERENTIAL | e | 9:14 AM | | procedure are in the | | | | PST | | results section. | + +--------+ + + + | COMPREHENSIVE | Routin | 12/26/2016 | | Results for this | | METABOLIC PANEL | e | 9:14 AM | | procedure are in the | | | | PST | | results section. | + +--------+ + + + | TROPONIN I | Routin | 12/26/2016 | | Results for this | | | e | 4:44 AM | | procedure are in the | | | | PST | | results section. | + +--------+ + + + | MAGNESIUM | Routin | 12/26/2016 | | Results for this | | | e | 4:44 AM | | procedure are in the | | | | PST | | results section. | + +--------+ + + + | CK TOTAL | Routin | 12/26/2016 | | Results for this | | | e | 4:44 AM | | procedure are in the | | | | PST | | results section. | + +--------+ + + + | EXTRA LAVENDER TOP | Routin | 12/26/2016 | | Results for this | | TUBE | e | 4:40 AM | | procedure are in the | | | | PST | | results section. | + +--------+ + + + | ECG 12 LEAD | Routin | 12/26/2016 | | Results for this | | | e | 4:18 AM | | procedure are in the | | | | PST | | results section. | + +--------+ + + + | URINALYSIS WITH | Routin | 12/25/2016 | | Results for this | | MICROSCOPIC WITH | e | 10:16 PM | | procedure are in the | | CULTURE IF INDICATED | | PST | | results section. | + +--------+ + + + | CULTURE, URINE | Routin | 12/25/2016 | | Results for this | | | e | 10:16 PM | | procedure are in the | | | | PST | | results section. | + +--------+ + + + | XR CHEST AP PORTABLE | Routin | 12/25/2016 | | Results for this | | | e | 7:42 PM | | procedure are in the | | | | PST | | results section. | + +--------+ + + + | CULTURE, MRSA | Routin | 12/25/2016 | | Results for this | | | e | 7:40 PM | | procedure are in the | | | | PST | | results section. | + +--------+ + + + | ECG 12 LEAD | Routin | 12/25/2016 | | Results for this | | | e | 6:24 PM | | procedure are in the | | | | PST | | results section. | + +--------+ + + + | CV LHC | Routin | 12/25/2016 | | Results for this | | | e | 5:59 PM | | procedure are in the | | | | PST | | results section. | + +--------+ + + + | EXTRA LAVENDER TOP | Routin | 12/25/2016 | | Results for this | | TUBE | e | 4:33 PM | | procedure are in the | | | | PST | | results section. | + +--------+ + + + | EXTRA BLUE TOP TUBE | Routin | 12/25/2016 | | Results for this | | | e | 4:33 PM | | procedure are in the | | | | PST | | results section. | + +--------+ + + + | TROPONIN I | STAT | 12/25/2016 | | Results for this | | | | 4:33 PM | | procedure are in the | | | | PST | | results section. | + +--------+ + + + | CBC WITH | STAT | 12/25/2016 | | Results for this | | DIFFERENTIAL | | 4:33 PM | | procedure are in the | | | | PST | | results section. | + +--------+ + + + | MAGNESIUM | STAT | 12/25/2016 | | Results for this | | | | 4:33 PM | | procedure are in the | | | | PST | | results section. | + +--------+ + + + | COMPREHENSIVE | STAT | 12/25/2016 | | Results for this | | METABOLIC PANEL | | 4:33 PM | | procedure are in the | | | | PST | | results section. | + +--------+ + + + | ECG 12 LEAD | STAT | 12/25/2016 | | Results for this | | | | 4:30 PM | | procedure are in the | | | | PST | | results section. | + +--------+ + + + documented in this encounter Results Extra Lavender Top Tube (12/28/2016 4:14 AM PST) + +-------+ + + + | Component | Value | Ref Range | Performed | Pathologist | | | | | At | Signature | + +-------+ + + + | Extra | Done | | [facility] | | | Lavender | | | [facility] | | | Top Tube | | [...] [address] | [place] | [phone] | | [facility] | | [id number] | | | - LABORATORY | | | | + + + + + Troponin I (12/28/2016 4:14 AM PST) + + + + + + | Component | Value | Ref Range | Performed | Pathologist | | | | | At | Signature | + + + + + + | Troponin I | 27.55 (HH)Comment: | <0.06 ng/mL | [facility] | | [...] infarction. | | | | | | Consistent with previous | | | | | | results. The [place] | | | | | | College of Cardiology | | | | | | (ACC) recommends a | | | | | | decision limit of 0.06 | | | | | | ng/mL for this assay. | | | | | | Results greater than | | | | | | 0.06 can reflect a | | | | | | pre-infarct acute | | | | | | coronary syndrome, but | | | | | | can also reflect | | | | [...] + | [facility] | [address] | [place] | [phone] | | [facility] | | [id number] | | | - LABORATORY | | | | + + + + + Comprehensive Metabolic Panel (12/28/2016 4:14 AM PST) + + + + + + | Component | Value | Ref Range | Performed | Pathologist | | | | | At | Signature | + + + + + + | Na | 146 | 136 - 149 | [facility] | | | | | mmol/L | [facility] | | | | | | [facility] | | | | | | C[facility] - | | | | | | LABORATORY | | + + + + + + | K | 4.3 | 3.5 - 5.1 | [facility] | [...] + + + | Anion Gap | 11 | 3 - 16 mmol/L | [facility] | | | | | | [facility] | | | [facility] | | [facility]ICAL | | | | | | CENTER - | | | | | | LABORATORY | | + + + + + + | Glucose | 159 (H) | 70 - 109 mg/dL | [facility] | | | | | | [facility] | | | | | | [facility] | | | | | | CENTER - | | | | | | LABORATORY | | + + + + + + | BUN | 18 | 7 - 18 mg/dL | [facility] | | | | | | [facility] | | | | | | [facility] | | | | | | C[facility] - | | | | | | LABORATORY | | + + + + + + | Creatinine | 1.27 | 0.60 - 1.30 | [facility] | | | | | mg/dL | [facility] | | | | | | MEDICAL | | | | | | CENTER - | | | | | | LABORATORY | | + + + + + + | eGFR, | 55 (L)Comment: | >=60 | [facility] | | | non- | GLOMERULAR FILTRATION | mL/min/1.73m2 | [facility] | | | [place] | RATE,ESTIMATED | | MEDICAL | | | | mL/min/1.53s8Kqrh than | | CENTER - | | [...] + + + + | Calcium | 9.1 | 8.3 - 10.5 | [facility] | | | | | mg/dL | [facility] | | | | | | MEDICAL | | | | | | CENTER - | | | | | | LABORATORY | | + + + + + + | Albumin | 3.1 (L) | 3.2 - 5.0 g/dL | [facility] | | | | | | [facility] | | | | | | MEDICAL | | | | | | CENTER - | | | | | | LABORATORY | | + + + + + + | Bilirubin | 0.8 | 0.1 - 1.5 mg/dL | [facility] | | | Total | | | [facility] | | | | | | MEDICAL | | | | | | CENTER - | | | | | | LABORATORY | | + + + + + + | Total | 5.4 (L) | 6.0 - 7.8 g/dL | [facility] | | | Protein | | | [facility] | | | | | | MEDICAL | | | | | | CENTER - | | | | | | LABORATORY | | + + + + + + | AST | 47 (H) | 10 - 42 U/L | [facility] | | | | | | [facility] | | | | | | MEDICAL | | | | | | CENTER - | | | | | | LABORATORY | | + + + + + + | ALT | 47 (H) | 6 - 45 U/L | [facility] | | | | | | [facility] | | | | | | MEDICAL | | | | | | CENTER - | | | | | | LABORATORY | | + + + + + + | Alkaline | 74 | 40 - 110 U/L | [facility] | | | Phosphatase | | | [facility] | | | | [facility] | [facility] | | | | | | CENTER - | | | | | | LABORATORY | | + + + + + + | Globulin | 2.3 | 2.1 - 3.8 g/dL | [facility] | | | | | | [facility] | | | | | | MEDICAL | | | | | | CENTER - | | | | | | LABORATORY | | + + + + + + | Albumin/Blanquita | 1.3 | 0.8 - 2.0 | [facility] | | | bulin Ratio | | | [facility] | | | | | | MEDICAL | | | | | | CENTER - | | | | | | LABORATORY | | + + + + + + | BUN/Creatin | 14.2 | | [facility] | | | ine Ratio | | | [facility] | | [...] [address] | [place] | [phone] | | [facility] | | [address] | | | - LABORATORY | | | | + + + + + Troponin I (12/27/2016 5:15 PM PST) + + + + + + | Component | Value | Ref Range | Performed | Pathologist | | | | | At | Signature | + + + + + + | Troponin I | 31.52 ()Comment: | <0.06 ng/mL | [facility] | [...] by | | | | | | KATHE HAQ on | | | | | | 12/27/2016 at 18:06 by | | | | | | Becky Carreno. The | | | | | | [employer] | | | | | [...] + + | Performing | Address | City/State/[facility] | Phone Number | | Organization | | | | + + + + + | [facility] | [address] | [place] | [phone] | | [facility] | | [address] | | | - LABORATORY | | | | + + + + + ECHO Complete (12/27/2016 9:19 AM PST) + +-------+ + + + | Component | Value | Ref Range | Performed | Pathologist | | | | | At | Signature | + +-------+ + + + | LVEF-TTE | 55 | | | | | TRANSTHORAC | | | | | | IC ECHO | | | | | + +-------+ + + + + + | Specimen | + + | | + + + +-- + | Narrative | P erformed At | + +-- + | Transthoracic | | | Echocardiography Report (TTE) Demographics Patient Name NEVAEH | | | MARGARITO Room Number 453 | | | [place] Patient Number [id number] Date of Study | | | 12/27/2016 Visit Number [id number] | | | Referring Physician Jovany HORTON MD Number Date of | | | 1940 Regulatory Affairs Spec RUPINDER CLEMENCIA | | | [facility] Age 76 year(s) Interpreting | | | Jovany HORTON MD | | | Emotionally Impaired Teacher Gender Male Nurse | | | Procedure Type of Study TTE procedure: ECHO Complete. Procedure | | | dateDate: 12/27/2016Start: 08:10 AM Technical Quality: Limited | | | visualizationStudy Location: ICU Patient Status: RoutineHeight: 67.01 | | | inchesWeight: 167.99 poundsBSA: 1.88 m^2BMI: 26.3 kg/m^2 | | | ConclusionsSummaryDiffuse thickening (sclerosis) of the aortic valve | | | cusps without reducedexcursion.The left atrium is moderately | | | dilated.Left Ventricular size appears to be normal with an ejection | | | fractionestimated at 55 %. | | | Signature | | | | | | PM | | | -------- FindingsMitral ValveMitral valve appears structurally and | | | functionally normal.Aortic ValveDiffuse thickening (sclerosis) of the | | | aortic valve cusps without reducedexcursion.Tricuspid | | | ValveStructurally normal tricuspid valve with trace | | | regurgitation.Pulmonic ValveThe pulmonic valve was not well | | | visualized.Left AtriumThe left atrium is moderately dilated.Left | | | VentricleLeft Ventricular size appears to be normal with an ejection | | | fractionestimated at 55 %.Right AtriumNormal right atrial size.Right | | | VentricleNormal right ventricular size and function.Pericardial | | | EffusionNo evidence of pericardial effusion. MiscellaneousAortic root | | | dimension within normal limits.IVC normal. Valves Mitral Valve Peak | | | E-Wave: 0.61 m/s Peak A-Wave: 0.82 m/s Tissue Doppler Septal e' | | | Velocity: 0.04 m/s Lateral e' Velocity: 0.06 m/s Septal E/e' | | | Ratio:13.78 Aortic Valve Tricuspid Valve TR Velocity: 2.58 m/s | | | LVOT LVOT Diameter: 1.98 cm Structures Left Atrium LA A/P | | | Dimension: 4.88 cm LA Area: 20.08 cm^2 | | | LA Vol/BSA Index: 45 mL/m^2 LA Volume: | | | 85 ml | | | EF Qlvvpnhnz23% Left Ventricle Diastolic Dimension: 5.24 cm | | | Systolic Dimension: 2.88 cm Septum Diastolic: 1.12 cm PW | | | Diastolic: 1.08 cm EF Calculated: 67% Right Atrium | | | RA Area: 15.47 cm^2 Miscellaneous Aorta Aortic Root: 3.6 cm | | | Ascending Aorta: 3.45 cm | | | Electronically signed by Jovany HORTON MD(Interpreting physician) on | | | 12/27/2016 12:29 PM | | | | | | | | |Findings | | |Mitral Valve | | |Mitral valve appears structurally and functionally normal. | | |Aortic Valve | | |Diffuse thickening (sclerosis) of the aortic valve cusps without reduced | | |excursion. | | |Tricuspid Valve | | |Structurally normal tricuspid valve with trace regurgitation. | | |Pulmonic Valve | | |The pulmonic valve was not well visualized. | | |Left Atrium | | |The left atrium is moderately dilated. | | |Left Ventricle | | |Left Ventricular size appears to be normal with an ejection fraction | | |estimated at 55 %. | | |Right Atrium | | |Normal right atrial size. | | |Right Ventricle | | |Normal right ventricular size and function. | | |Pericardial Effusion | | |No evidence of pericardial effusion. | | | | | |Miscellaneous | | |Aortic root dimension within normal limits. | | |IVC normal. | | | | | |Valves | | | | | | Mitral Valve | | | | | | Peak E-Wave: 0.61 m/s | | | Peak A-Wave: 0.82 m/s | | | | | | Tissue Doppler | | | | | | Septal e' Velocity: 0.04 m/s Lateral e' Velocity: 0.06 m/s | | | Septal E/e' Ratio:13.78 | | | | | | Aortic Valve | | | | | | Tricuspid Valve | | | | | | TR Velocity: 2.58 m/s | | | | | | LVOT | | | | | | LVOT Diameter: 1.98 cm | | | | | |Structures | | | | | | Left Atrium | | | | | | LA A/P Dimension: 4.88 cm LA Area: 20.08 cm^2 | | | LA Vol/BSA Index: 45 mL/m^2 LA Volume: 85 ml | | | EF Fiawgmkfk02% | | | | | | Left Ventricle | | | | | | Diastolic Dimension: 5.24 cm Systolic Dimension: 2.88 cm | | | Septum Diastolic: 1.12 cm | | | PW Diastolic: 1.08 cm | | | EF Calculated: 67% | | | | | | Right Atrium | | | | | | RA Area: 15.47 cm^2 | | | | | | Miscellaneous | | | | | | Aorta | | | | | | Aortic Root: 3.6 cm | | | Ascending Aorta: 3.45 cm | | | | | + +-- + + + | Procedure Note | + + | Jonnie Prakash Results In - 12/27/2016 12:29 PM PST Transthoracic Echocardiography Report | | (TTE) Demographics Patient Name NEVAEH PIMENTEL Room Number 453 | | [place] Patient Number [id number] Date of Study 12/27/2016 Visit Number | | [id number] Referring Physician Jovany HORTON MD | | Number Date of 1940 Regulatory Affairs Spec RUPINDER KHANNA RDCS Age | | 76 year(s) Interpreting Jovany HORTON MD | | Emotionally Impaired Teacher Gender Male NurseProcedureType of Study TTE | | procedure: ECHO Complete.Procedure dateDate: 12/27/2016Start: 08:10 AMTechnical Quality: | | Limited visualizationStudy Location: ICUPatient Status: RoutineHeight: 67.01 | | inchesWeight: 167.99 poundsBSA: 1.88 m^2BMI: 26.3 kg/m^2ConclusionsSummaryDiffuse | | thickening (sclerosis) of the aortic valve cusps without reducedexcursion.The left | | atrium is moderately dilated.Left Ventricular size appears to be normal with an ejection | | fractionestimated at 55 | | %.Signature | | | | PM FindingsMi | | tral ValveMitral valve appears structurally and functionally normal.Aortic ValveDiffuse | | thickening (sclerosis) of the aortic valve cusps without reducedexcursion.Tricuspid | | ValveStructurally normal tricuspid valve with trace regurgitation.Pulmonic ValveThe | | pulmonic valve was not well visualized.Left AtriumThe left atrium is moderately | | dilated.Left VentricleLeft Ventricular size appears to be normal with an ejection | | fractionestimated at 55 %.Right AtriumNormal right atrial size.Right VentricleNormal | | right ventricular size and function.Pericardial EffusionNo evidence of pericardial | | effusion.MiscellaneousAortic root dimension within normal limits.IVC normal.Valves | | Mitral Valve Peak E-Wave: 0.61 m/s Peak A-Wave: 0.82 m/s Tissue Doppler Septal e' | | Velocity: 0.04 m/s Lateral e' Velocity: 0.06 m/s Septal E/e' Ratio:13.78 Aortic | | Valve Tricuspid Valve TR Velocity: 2.58 m/s LVOT LVOT Diameter: 1.98 cmStructures Left | | Atrium LA A/P Dimension: 4.88 cm LA Area: 20.08 cm^2 LA Vol/BSA | | Index: 45 mL/m^2 LA Volume: 85 ml | | EF Uilmjchwr38% Left Ventricle Diastolic Dimension: 5.24 cm Systolic | | Dimension: 2.88 cm Septum Diastolic: 1.12 cm PW Diastolic: 1.08 cm EF Calculated: 67% | | Right Atrium RA Area: 15.47 cm^2 Miscellaneous Aorta Aortic Root: 3.6 cm | | Ascending Aorta: 3.45 cm | |Height: 67.01 inchesWeight: 167.99 poundsBSA: 1.88 m^2BMI: 26.3 kg/m^2 | | | |Conclusions | |Summary | |Diffuse thickening (sclerosis) of the aortic valve cusps without reduced | |excursion. | |The left atrium is moderately dilated. | |Left Ventricular size appears to be normal with an ejection fraction | |estimated at 55 %. | | | |Signature | | | | Electronically signed by Jovany HORTON MD(Interpreting physician) on | | 12/27/2016 12:29 PM | | | | | |Findings | |Mitral Valve | |Mitral valve appears structurally and functionally normal. | |Aortic Valve | |Diffuse thickening (sclerosis) of the aortic valve cusps without reduced | |excursion. | |Tricuspid Valve | |Structurally normal tricuspid valve with trace regurgitation. | |Pulmonic Valve | |The pulmonic valve was not well visualized. | |Left Atrium | |The left atrium is moderately dilated. | |Left Ventricle | |Left Ventricular size appears to be normal with an ejection fraction | |estimated at 55 %. | |Right Atrium | |Normal right atrial size. | |Right Ventricle | |Normal right ventricular size and function. | |Pericardial Effusion | |No evidence of pericardial effusion. | | | |Miscellaneous | |Aortic root dimension within normal limits. | |IVC normal. | | | |Valves | | | | Mitral Valve | | | | Peak E-Wave: 0.61 m/s | | Peak A-Wave: 0.82 m/s | | | | Tissue Doppler | | | | Septal e' Velocity: 0.04 m/s Lateral e' Velocity: 0.06 m/s | | Septal E/e' Ratio:13.78 | | | | Aortic Valve | | | | Tricuspid Valve | | | | TR Velocity: 2.58 m/s | | | | LVOT | | | | LVOT Diameter: 1.98 cm | | | |Structures | | | | Left Atrium | | | | LA A/P Dimension: 4.88 cm LA Area: 20.08 cm^2 | | LA Vol/BSA Index: 45 mL/m^2 LA Volume: 85 ml | | EF Ammdspptq73% | | | | Left Ventricle | | | | Diastolic Dimension: 5.24 cm Systolic Dimension: 2.88 cm | | Septum Diastolic: 1.12 cm | | PW Diastolic: 1.08 cm | | EF Calculated: 67% | | | | Right Atrium | | | | RA Area: 15.47 cm^2 | | | | Miscellaneous | | | | Aorta | | | | Aortic Root: 3.6 cm | | Ascending Aorta: 3.45 cm | + + Troponin I (12/27/2016 5:14 AM PST) + + + + + + | Component | Value | Ref Range | Performed | Pathologist | | | | | At | Signature | + + + + + + | Troponin I | 49.38 ()Comment: | <0.06 ng/mL | [facility] | [...] infarction. | | | | | | Consistent with previous | | | | | | results. The [employer] | | | | | | [employer] | | | | | | (ACC) recommends a | | | | | | decision limit of 0.06 | | | | | | ng/mL for this assay. | | | | | | Results greater than | | | | | | 0.06 can reflect a | | | | | | pre-infarct acute | | | | | | coronary syndrome, but | | | | | | can also reflect | | | | [...] + + | Performing | Address | City/State/[facility] | Phone Number | | Organization | | | | + + + + + | [facility] | [address] | [place] | [phone] | | [facility] | | [address] | | | - LABORATORY | | | | + + + + + Basic Metabolic Panel (12/27/2016 5:14 AM PST) + + + + + + | Component | Value | Ref Range | Performed | Pathologist | | | | | At | Signature | + + + + + + | Na | 140 | 136 - 149 | [facility] | | | | | mmol/L | [facility] | | | | | | MEDICAL | | | | | | CENTER - | | | | | | LABORATORY | | + + + + + + | K | 4.0 | 3.5 - 5.1 | [facility] | | | | | mmol/L | [facility] | | | | | | MEDICAL | | | | | | CENTER - | | | | | | LABORATORY | | + + + + + + | Cl | 105 | 98 - 109 mmol/L | [facility] [...] + + + | Anion Gap | 12 | 3 - 16 mmol/L | [facility] | | | | | | [facility] | | | | | | MEDICAL | | | | | | CENTER - | | | | | | LABORATORY | | + + + + + + | Glucose | 167 (H) | 70 - 109 mg/dL | [facility] | | | | | | [facility] | | | | | | MEDICAL | | | | | | CENTER - | | | | | | LABORATORY | | + + + + + + | BUN | 20 (H) | 7 - 18 mg/dL | [facility] | | | | | | [facility] | | | | | | MEDICAL | | | | | | CENTER - | | | | | | LABORATORY | | + + + + + + | Creatinine | 1.46 (H) | 0.60 - 1.30 | [facility] | | | | | mg/dL | [facility] | | | | | MEDICAL | | | | | | CENTER - | | | | | | LABORATORY | | + + + + + + | eGFR, | 47 (L)Comment: | >=60 | [facility] | | | non- | GLOMERULAR FILTRATION | mL/min/1.73m2 | [facility] | | | [place] | RATE,ESTIMATED | | MEDICAL | | | | mL/min/1.28m5Sqcn than | | CENTER - | | [...] + + + + | Calcium | 8.8 | 8.3 - 10.5 | [facility] | | | | | mg/dL | [facility] | | | | | | MEDICAL | | | | | | CENTER - | | | | | | LABORATORY | | + + + + + + | BUN/Creatin | 13.7 | | [facility] | | | ine Ratio | | | [facility] | | [...] [address] | [place] | [phone] | | [facility] | | [address] | | | - LABORATORY | | | | + + + + + CBC with Differential (12/27/2016 5:14 AM PST) + + + + + + | Component | Value | Ref Range | Performed | Pathologist | | | | | At | Signature | + + + + + + | White Blood | 10.1 | 4.0 - 11.0 K/uL | [facility] | | | Cells | | | [facility] | | | | | | MEDICAL | | | | | | CENTER - | | | | | | LABORATORY | | + + + + + + | Red Blood | 4.55 | 4.30 - 5.70 | [facility] | | | Cells | | M/uL | [facility] | | | | | | MEDICAL | | | | | | CENTER - | | | | | | LABORATORY | | + + + + + + | Hemoglobin | 13.1 (L) | 13.5 - 18.0 | [facility] | | | | | g/dL | [facility] | | | | | | MEDICAL | | | | | | CENTER - | | | | | | LABORATORY | | + + + + + + | Hematocrit | 39.6 (L) | 40.0 - 51.0 % | [facility] | | | | | | [facility] | | | | | | MEDICAL | | | | | | CENTER - | | | | | | LABORATORY | | + + + + + + | MCV | 87.0 | 83.0 - 101.0 fL | [facility] | | | | | | [facility] | | | | | | MEDICAL | | | | | | CENTER - | | | | | | LABORATORY | | + + + + + + | MCH | 28.8 | 28.0 - 35.0 pg | [facility] | | | | | | [facility] | | | | | | MEDICAL | | | | | | CENTER - | | | | | | LABORATORY | | + + + + + + | MCHC | 33.0 | 32.0 - 36.0 | [facility] | | | | | g/dL | [facility] | | [facility] | | | MEDICAL | | | | | | CENTER - | | | | | | LABORATORY | | + + + + + + | RDW-CV | 15.1 (H) | <15.0 % | [facility] | | | | | | [facility] | | | | | | MEDICAL | | | | | | CENTER - | | | | | | LABORATORY | | + + + + + + | Platelet | 256 | 140 - 440 K/uL | [facility] | | | Count | | | [facility] | | | | | | MEDICAL | | | | | | CENTER - | | | | | | LABORATORY | | + + + + + + | MPV | 9.1 | fL | [facility] | | | | | | [facility] | | | | | | MEDICAL | | | | | | CENTER - | | | | | | LABORATORY | | + + + + + + | % | 60.6 | 45.0 - 82.0 % | [facility] | | | Neutrophils | | | [facility] | | | | | | MEDICAL | | | | | | CENTER - | | | | | | LABORATORY | | + + + + + + | % | 22.8 | 20.0 - 45.0 % | [facility] | | | Lymphocytes | | | [facility] | | | | | | MEDICAL | | | | | | CENTER - | | | | | | LABORATORY | | + + + + + + | % Monocytes | 10.1 | 4.0 - 12.0 % | [facility] | | | | | | [facility] | | | | | | MEDICAL | | | | | | CENTER - | | | | | | LABORATORY | | + + + + + + | % | 6.1 (H) | 0.0 - 5.0 % | [facility] | | | Eosinophils | | | [facility] | | | | | | MEDICAL | | | | | | CENTER - | | | | | | LABORATORY | | + + + + + + | % Basophils | 0.4 | 0.0 - 1.0 % | [facility] | | | | | | [facility] | | | | | | MEDICAL | | | | | | CENTER - | | | | | | LABORATORY | | + + + + + + | Absolute | 6.10 | 1.80 - 8.50 | [facility] | | | Neutrophils | | K/uL | [facility] | | | | | MEDICAL | | | | | | CENTER - | | | | | | LABORATORY | | + + + + + + | Absolute | 2.30 | 0.60 - 3.20 | [facility] | | | Lymphocytes | | K/uL | [facility] | | | | | | MEDICAL | | | | | | CENTER - | | | | | | LABORATORY | | + + + + + + | Absolute | 1.00 | 0.00 - 1.00 | [facility] | | | Monocytes | | K/uL | [facility] | | | | | | MEDICAL | | | | | | CENTER - | | | | | | LABORATORY | | + + + + + + | Absolute | 0.60 (H) | 0.00 - 0.40 | [facility] | | | Eosinophils | | K/uL | [facility] | | | | | | MEDICAL | | | | | | CENTER - | | | | | | LABORATORY | | + + + + + + | Absolute | 0.00 | 0.00 - 0.10 | [facility] | | | Basophils | | K/uL | [facility] | | | | [...] [address] | [place] | [phone] | | [facility] | | [address] | | | - LABORATORY | | | | + + + + + Troponin I (12/26/2016 4:58 PM PST) + + + + + + | Component | Value | Ref Range | Performed | Pathologist | | | | | At | Signature | + + + + + + | Troponin I | 67.31 ()Comment: | <0.06 ng/mL | [facility] | [...] by | | | | | | KATHE HAQ | | | | | | 12/26/2016 at 17:34 by | | | | | | Becky Carreno. The | | | | | | [employer] | | | | | [...] [address] | [place] | [phone] | | [facility] | | [address] | | | - LABORATORY | | | | + + + + + Comprehensive Metabolic Panel (12/26/2016 9:14 AM PST) + + + + + + | Component | Value | Ref Range | Performed | Pathologist | | | | | At | Signature | + + + + + + | Na | 140 | 136 - 149 | [facility] | | | | | mmol/L | [facility] | | | | | | MEDICAL | | | | | | CENTER - | | | | | | LABORATORY | | + + + + + + | K | 4.2 | 3.5 - 5.1 | [facility] | | | | | mmol/L | [facility] | | | | | | MEDICAL | | | | | | CENTER - | | | | | | LABORATORY | | + + + + + + | Cl | 102 | 98 - 109 mmol/L | [facility] | | | | | | [facility] | | | | | | MEDICAL | | | | | | CENTER - | | | | | | LABORATORY | | + + + + + + | CO2 | 21 (L) | 24 - 31 mmol/L | [facility] | | | | | | [facility] | | | | | | MEDICAL | | | | | | CENTER - | | | | | | LABORATORY | | + + + + + + | Anion Gap | 17 (H) | 3 - 16 mmol/L | [facility] | | | | | | [facility] | | | | | | MEDICAL | | | | | | CENTER - | | | | | | LABORATORY | | + + + + + + | Glucose | 272 (H) | 70 - 109 mg/dL | [facility] | | | | | | [facility] | | | | | [facility] | | | | | | CENTER - | | | | | | LABORATORY | | + + + + + + | BUN | 17 | 7 - 18 mg/dL | [facility] | | | | | | [facility] | | | | | | MEDICAL | | | | | | CENTER - | | | | | | LABORATORY | | + + + + + + | Creatinine | 1.23 | 0.60 - 1.30 | [facility] | | | | | mg/dL | [facility] | | | | | | MEDICAL | | | | | | CENTER - | | | | | | LABORATORY | | + + + + + + | eGFR, | 58 (L)Comment: | >=60 | [facility] | | | non- | GLOMERULAR FILTRATION | mL/min/1.73m2 | [facility] | | | [place] | RATE,ESTIMATED | | MEDICAL | | | | mL/min/1.44b1Itog than | | CENTER - | | [...] + + + + | Calcium | 8.9 | 8.3 - 10.5 | [facility] | | | | | mg/dL | [facility] | | [facility] | | | MEDICAL | | | | | | CENTER - | | | | | | LABORATORY | | + + + + + + | Albumin | 3.4 | 3.2 - 5.0 g/dL | [facility] | | | | | [facility] | | | | | | MEDICAL | | | | | | CENTER - | | | | | | LABORATORY | | + + + + + + | Bilirubin | 0.7 | 0.1 - 1.5 mg/dL | [facility] | | | Total | | | [facility] | | | | | | MEDICAL | | | | | | CENTER - | | | | | | LABORATORY | | + + + + + + | Total | 5.9 (L) | 6.0 - 7.8 g/dL | [facility] | | | Protein | | | [facility] | | | | | | MEDICAL | | | | | | CENTER - | | | | | | LABORATORY | | + + + + + + | AST | 221 (H) | 10 - 42 U/L | [facility] | | | | | | [facility] | | | | | | MEDICAL | | | | | | CENTER - | | | | | | LABORATORY | | + + + + + + | ALT | 75 (H) | 6 - 45 U/L | [facility] | | | | | | [facility] | | | | | | MEDICAL | | | | | | CENTER - | | | | | | LABORATORY | | + + + + + + | Alkaline | 83 | 40 - 110 U/L | [facility] | | | Phosphatase | | | [facility] | | | | | | MEDICAL | | | | | | CENTER - | | | | | | LABORATORY | | + + + + + + | Globulin | 2.5 | 2.1 - 3.8 g/dL | [facility] | | | | | | [facility] | | | | | | MEDICAL | | | | | | CENTER - | | | | | | LABORATORY | | + + + + + + | Albumin/Blanquita | 1.4 | 0.8 - 2.0 | [facility] | | | bulin Ratio | | | [facility] | | | | | | MEDICAL | | | | | | CENTER - | | | | | | LABORATORY | | + + + + + + | BUN/Creatin | 13.8 | | [facility] | | | ine Ratio | | | [facility] | | | | | | MEDICAL | | | | | | CENTER - | | | | | | LABORATORY | | + + + + + + + + | Specimen | + + | Blood | + + + + + + + | Performing | Address | City/State[facility] | Phone Number | | Organization | | | | + + + + + | [facility] | [address] | [place] | [phone] | | [facility] | | [address] | | | - LABORATORY | | | | + + + + + CBC with Differential (12/26/2016 9:14 AM PST) + + + + + + | Component | Value | Ref Range | Performed | Pathologist | | | | | At | Signature | + + + + + + | White Blood | 13.8 (H) | 4.0 - 11.0 K/uL | [facility] | | | Cells | | | [facility] | | | [facility] | [facility] | | | | | | CENTER - | | | | | | LABORATORY | | + + + + + + | Red Blood | 5.03 | 4.30 - 5.70 | [facility] | | | Cells | | M/uL | [facility] | | | | | | [facility] | | | | | | [facility] - | | | | | | LABORATORY | | + + + + + + | Hemoglobin | 14.2 | 13.5 - 18.0 | [facility] | | | | | g/dL | [facility] | | | | | | [facility] | | | | | | [facility] - | | | | | | LAB[facility]ATORY | | + + + + + + | Hematocrit | 44.0 | 40.0 - 51.0 % | [facility] | | | | | | [facility] | | | [facility] | [facility] | | | | | [facility] - | | | | | | [facility]ATORY | | + + + + + + | MCV | 87.5 | 83.0 - 101.0 fL | [facility] | | | | | | [facility] | | | | | | [facility] | | | | | | [facility] - | | | | | | LAB[facility]ATORY | | + + + + + + | MCH | 28.2 | 28.0 - 35.0 pg | [facility] | | | | | | [facility] | | | | | | [facility] | | | | | | [facility] - | | | | | | LAB[facility]ATORY | | + + + + + + | MCHC | 32.2 | 32.0 - 36.0 | [facility] | | | | | g/dL | [facility] | | | | | | [facility] | | | | | | [facility] - | | | | | | LAB[facility]ATORY | | + + + + + + | RDW-CV | 15.2 (H) | <15.0 % | [facility] | | | | | | [facility] | | | [facility] | [facility] | | | | | | [facility] - | | | | | | LAB[facility]ATORY | | + + + + + + | Platelet | 308 | 140 - 440 K/uL | [facility] | | | Count | | | [facility] | | | | | | [facility] | | | | | | [facility] - | | | | | | [facility]ATORY | | + + + + + + | MPV | 9.6 | fL | [facility] | | | | | | [facility] | | | | | | [facility] | | | | | [facility] - | | | | | | [facility]ATORY | | + + + + + + | % | 80.7 | 45.0 - 82.0 % | [facility] | | | Neutrophils | | | [facility] | | | | | | [facility] | | | | | | [facility] - | | | | | | LAB[facility]ATORY | | + + + + + + | % | 11.6 (L) | 20.0 - 45.0 % | [facility] | | | Lymphocytes | | | [facility] | | | | | | [facility] | | | | | | [facility] - | | | | | | LABORATORY | | + + + + + + | % Monocytes | 6.6 | 4.0 - 12.0 % | [facility] | | | | | | [facility] | | | | | | [facility] | | | | | | [facility] - | | | | | | LAB[facility]ATORY | | + + + + + + | % | 0.9 | 0.0 - 5.0 % | [facility] | | | Eosinophils | | | [facility] | | | | | | [facility] | | | | | | [facility] - | | | | | | LABORATORY | | + + + + + + | % Basophils | 0.2 | 0.0 - 1.0 % | [facility] | | | | | | [facility] | | | | | | [facility] | | | | | | [facility] - | | | | | | LAB[facility]ATORY | | + + + + + + | Absolute | 11.10 (H) | 1.80 - 8.50 | [facility] | | | Neutrophils | | K/uL | [facility] | | | | | | [facility] | | | | | | [facility] - | | | | | | LABORATORY | | + + + + + + | Absolute | 1.60 | 0.60 - 3.20 | [facility] | | | Lymphocytes | | K/uL | [facility] | | | | | | [facility] | | | | | | CENTER - | | | | | | LABORATORY | | + + + + + + | Absolute | 0.90 | 0.00 - 1.00 | [facility] | | | Monocytes | | K/uL | [facility] | | | | | | MEDICAL | | | | | | CENTER - | | | | | | LABORATORY | | + + + + + + | Absolute | 0.10 | 0.00 - 0.40 | [facility] | | | Eosinophils | | K/uL | [facility] | | | | | | MEDICAL | | | | | | CENTER - | | | | | | LABORATORY | | + + + + + + | Absolute | 0.00 | 0.00 - 0.10 | [facility] | | | Basophils | | K/uL | [facility] | | | | [...] [address] | [place] | [phone] | | [facility] | | [address] | | | - LABORATORY | | | | + + + + + Magnesium (12/26/2016 4:44 AM PST) + +-------+ + + + | Component | Value | Ref Range | Performed | Pathologist | | | | | At | Signature | + +-------+ + + + | Magnesium | 2.1 | 1.8 - 2.5 mg/dL | [facility] | | | | [...] + | [facility] | [address] | [place] | [phone] | | [facility] | | [address] | | | - LABORATORY | | | | + + + + + Troponin I (12/26/2016 4:44 AM PST) + + + + + + | Component | Value | Ref Range | Performed | Pathologist | | | | | At | Signature | + + + + + + | Troponin I | >100.00 ()Comment: | <0.06 ng/mL | [facility] | | | | Reference | | [facility] | | | | Ranges:0.00-0.06 = | [...] | | | | | | [employer] | | | | | [...] [address] | [place] | [phone] | | [facility] | | [address] | | | - LABORATORY | | | | + + + + + CK Total (12/26/2016 4:44 AM PST) + + + + + + | Component | Value | Ref Range | Performed | Pathologist | | | | | At | Signature | + + + + + + | CK TOTAL | 2,333 (H) | 22 - 269 U/L | [facility] | | | | | | [facility] [...] [address] | [place] | [phone] | | [facility] | | [address] | | | - LABORATORY | | | | + + + + + Extra Lavender Top Tube (12/26/2016 4:40 AM PST) + +-------+ + + + | Component | Value | Ref Range | Performed | Pathologist | | | | | At | Signature | + +-------+ + + + | Extra | Done | | [facility] | | | Lavender | | | [facility] | | | Top Tube | | [...] ST. | [address] | [place] | [phone] | | [facility] | | [address] | | | - LABORATORY | | | | + + + + + ECG 12 lead (12/26/2016 4:18 AM PST) + + + + + + | Component | Value | Ref Range | Performed | Pathologist | | | | | At | Signature | + + + + + + | VENTRICULAR | 59 | BPM | [facility] | | | RATE EKG | | | | | + + + + + + | ATRIAL RATE | 59 | BPM | [facility] | | + + + + + + | P-R | 168 | ms | [facility] | | | INTERVAL | | | | | + + + + + + | QRS | 88 | ms | [facility] | | | DURATION | | | | | + + + + + + | Q-T | 452 | ms | [facility] | | | INTERVAL | | | | | + + + + + + | Q-T | 447 | ms | [facility] | | | INTERVAL | | | | | | (CORRECTED) | | | | | + + + + + + | P WAVE AXIS | 66 | degrees | [facility] | | + + + + + + | QRS AXIS | -64 | degrees | [facility] | | + + + + + + | T AXIS | -111 | degrees | [facility] | | + + + + + + | INTERPRETAT | Sinus bradycardiaLeft | | [facility] | | | ION TEXT | axis deviation with left | | | | | | anterior | | | | | | hemiblockInferior-finish mixer | | | | | | ior infarct (cited on or | | | | | | before 25-DEC-2016)ST & | | | | | | T wave abnormality, | | | | | | consider lateral | | | | | | ischemiaAbnormal ECGWhen | | | | | | compared with ECG of | | | | | | 25-DEC-2016 18:24, | | | | | | (Unconfirmed)Vent. rate | | | | | | has decreased BY 37 | | | | | | BPMSerial changes of | | | | | | evolving Inferior | | | | | | infarct presentateral ST | | | | | | and T-wave | | | | | | abnormalities are new | | | | | | findingConfirmed by | | | | | | RAMÓN DOWD MD ([id number]) | | | | | | on 12/26/2016 6:41:24 AM | | | | + + + [...] | | | + +---------+ + + Culture, Urine (12/25/2016 10:16 PM PST) + + + + + + | Component | Value | Ref Range | Performed | Pathologist | | | | | At | Signature | + + + + + + | Culture | No Growth | | [facility] | | | | | | [facility] | | | | | | MEDICAL | | | | | | CENTER - | | | | | | LABORATORY | | + + + + + + + + | Specimen | + + | Urine - Urine | | specimen obtained by | | clean catch | | procedure (specimen) | + + + + + + + | Performing | Address | City/State/Zipcode | Phone Number | | Organization | | | | + + + + + | [facility] | [address] | [place] | [phone] | | [facility] | | [address] | | | - LABORATORY | | | | + + + + + Urinalysis with Microscopic with Culture if Indicated (12/25/2016 10:16 PM PST) + + + + + + | Component | Value | Ref Range | Performed | Pathologist | | | | | At | Signature | + + + + + + | Color, | Straw | Light Yellow, | [facility] | | | Urine | | Yellow, Straw | [facility] | | | | | | MEDICAL | | | | | | CENTER - | | | | | | LABORATORY | | + + + + + + | Clarity, | Hazy (A) | Clear | [facility] | | | Urine | | | [facility] | | | | | | MEDICAL | | | | | | CENTER - | | | | | | LABORATORY | | + + + + + + | pH, Urine | 5.0 | 5.0 - 8.0 | [facility] | | | | | | [facility] | | | | | | MEDICAL | | | | | | CENTER - | | | | | | LABORATORY | | + + + + + + | Specific | 1.014 | 1.001 - 1.030 | [facility] | | | Dante, | | | [facility] | | [...] + + + + | Leukocyte | Large (A) | Negative | [facility] [...] + + + | White Blood | >100 (A) | 0 - 2 /HPF | [facility] | | | Cells, | | | [facility] | | | Urine | | | MEDICAL | | | | | | CENTER - | | | | | | LABORATORY | | + + + + + + | White Blood | Few (A) | None Seen /HPF | [facility] | | | Cell | | | [facility] | | | Clumps, | | | MEDICAL | | | Urine | | | CENTER - | | | | | | LABORATORY | | + + + + + + | Red Blood | >100 (A) | 0 - 2 /HPF | [facility] | | | Cells, | | | [facility] | | | Urine | | | MEDICAL | | | | | | CENTER - | | | | | | LABORATORY | | + + + + + + | Squamous | 2-5 (A) | 0 - 2 /LPF | [facility] [...] + + + + + + | Hyaline | 2-5 (A) | 0 - 2 /LPF | [facility] | | | Casts, | | | [facility] | | | Urine | | | MEDICAL | | | | | | CENTER - | | | | | | LABORATORY | | + + + + + + | Urine | Urine Culture Set Up | | [facility] | | | Comment | | | [facility] | | | | | | MEDICAL | | | | | | CENTER - | | | | | | LABORATORY | | + + + + + + + + | Specimen | + + | Urine - Urine | | specimen obtained by | | clean catch | | procedure (specimen) | + + + + + + + | Performing | Address | City/State/Zipcode | Phone Number | | Organization | | | | + + + + + | [facility] | [address] | [place] | [phone] | | [facility] | | [address] | | | - LABORATORY | | | | + + + + + XR Chest AP Portable (12/25/2016 7:42 PM PST) + + | Specimen | + + | | + + + + + | Narrative | Performed At | + + + | XR CHEST AP PORTABLE 12/25/2016 7:41 PM HISTORY: dyspnea. | [facility] | | COMPARISON: None. Findings: There is diffuse airspace disease | | | within the central and mid and upper lung zones. Aortic | | | calcifications are present. Median sternotomy wires are present. | | | Cardiac silhouette is within normal size limits. No evidence of | | | pleural effusion or pneumothorax. Bones and soft tissues demonstrate | | | no acute abnormality. IMPRESSION - Diffuse | | | bronchovascular/interstitial prominence throughout bilateral central | | | as well as the mid and upper lung zones, nonspecific with | | | differential including pneumonia versus pulmonary edema. Please | | | correlate clinically. Dictated and Signed by: Juan Will MD | | | Electronically signed: 12/26/2016 9:12 AM | | + + + + + | Procedure Note | + + | Dwain, Rad Results In - 12/26/2016 9:15 AM PST XR CHEST AP PORTABLE 12/25/2016 7:41 PM | | | | HISTORY: dyspnea. | | | | COMPARISON: None. | | | | Findings: | | There is diffuse airspace disease within the central and mid and upper lung | | zones. Aortic calcifications are present. Median sternotomy wires are present. | | Cardiac silhouette is within normal size limits. No evidence of pleural effusion | | or pneumothorax. Bones and soft tissues demonstrate no acute abnormality. | | | | IMPRESSION - | | Diffuse bronchovascular/interstitial prominence throughout bilateral central as | | well as the mid and upper lung zones, nonspecific with differential including | | pneumonia versus pulmonary edema. Please correlate clinically. | | | | Dictated and Signed by: Juan Will MD | | Electronically signed: 12/26/2016 9:12 AM | + + + +---------+ + + | Performing | Address | City/State/Zipcode | Phone Number | | Organization | | | | + +---------+ + + | [facility] | | | | + +---------+ + + Culture, MRSA (12/25/2016 7:40 PM PST) + + + + + + | Component | Value | Ref Range | Performed | Pathologist | | | | | At | Signature | + + + + + + | Culture | Negative for MRSA by | | [facility] | | | | chromogenic agar method [...] [address] | [place] | [phone] | | [facility] | | [address] | | | - LABORATORY | | | | + + + + + ECG 12 lead (12/25/2016 6:24 PM PST) + + + + + + | Component | Value | Ref Range | Performed | Pathologist | | | | | At | Signature | + + + + + + | VENTRICULAR | 96 | BPM | [facility] | | | RATE EKG | | | | | + + + + + + | ATRIAL RATE | 96 | BPM | [facility] | | + + + + + + | P-R | 168 | ms | [facility] | | | INTERVAL | | | | | + + + + + + | QRS | 94 | ms | [facility] | | | DURATION | | | | | + + + + + + | Q-T | 350 | ms | [facility] | | | INTERVAL | | | | | + + + + + + | Q-T | 442 | ms | [facility] | | | INTERVAL | | | | | | (CORRECTED) | | | | | + + + + + + | P WAVE AXIS | 73 | degrees | [facility] | | + + + + + + | QRS AXIS | 22 | degrees | [facility] | | + + + + + + | T AXIS | 102 | degrees | [facility] | | + + + + + + | INTERPRETAT | Normal sinus | | [facility] | | | ION TEXT | rhythmInferior infarct | | | | | | (cited on or before | | | | | | 25-DEC-2016) ACUTE | | | | | | CO / STEMI Consider | | | | | | right ventricular | | | | | | involvement in acute | | | | | | inferior infarctAbnormal | | | | | | ECGWhen compared with | | | | | | ECG of 25-DEC-2016 | | | | | | 16:30, | | | | | | (Unconfirmed)Sinus | | | | | | rhythm has replaced | | | | | | Atrial fibrillationST | | | | | | more elevated in | | | | | | Inferior leadsST less | | | | | | depressed in Lateral | | | | | | leadsConfirmed by | | | | | | RAMÓN DOWD MD ([id number]) | | | | | | on 12/26/2016 6:40:23 AM | | | | + + + [...] | | | + +---------+ + + Extra Blue Top Tube (12/25/2016 4:33 PM PST) + +-------+ + + + | Component | Value | Ref Range | Performed | Pathologist | | | | | At | Signature | + +-------+ + + + | Extra Blue | Done | | [facility] | | | Top Tube | | | [facility] | | [...] [address] | [place] | [phone] | | [facility] | | [address] | | | - LABORATORY | | | | + + + + + Extra Lavender Top Tube (12/25/2016 4:33 PM PST) + +-------+ + + + | Component | Value | Ref Range | Performed | Pathologist | | | | | At | Signature | + +-------+ + + + | Extra | Done | | [facility] | | | Lavender | | | [...] + + | [facility] | [address] | [place] | [phone] | | [facility] | | [address] | | | - LABORATORY | | | | + + + + + Magnesium (12/25/2016 4:33 PM PST) + +---------+ + + + | Component | Value | Ref Range | Performed | Pathologist | | | | | At | Signature | + +---------+ + + + | Magnesium | 1.6 (L) | 1.8 - 2.5 mg/dL | [facility] | | | | | | [facility] [...] | + + + + + | [facility] | [address] | [place] | [phone] | | [facility] | | [address] | | | - LABORATORY | | | | + + + + + Troponin I (12/25/2016 4:33 PM PST) + + + + + + | Component | Value | Ref Range | Performed | Pathologist | | | | | At | Signature | + + + + + + | Troponin I | 0.04Comment: Reference | <0.06 ng/mL | [facility] | | | | Ranges:0.00-0.06 = | | [facility] | | | | NORMAL>0.06 = | | MEDICAL | | | | SUSPICIOUS FOR | | CENTER - | | | | MYOCARDIAL DAMAGE NOTE: | | LABORATORY | | | | Values greater than 0.50 | | | | | | ng/mL have been shown | | | | | | to be strongly | | | | | | associated with acute | | | | | | myocardial infarction. | | | | | | [employer] | | | | | [...] [address] | [place] | [phone] | | [facility] | | [address] | | | - LABORATORY | | | | + + + + + Comprehensive Metabolic Panel (12/25/2016 4:33 PM PST) + + + + + + | Component | Value | Ref Range | Performed | Pathologist | | | | | At | Signature | + + + + + + | Na | 140 | 136 - 149 | [facility] | | | | | mmol/L | [facility] | | | | | | MEDICAL | | | | | | CENTER - | | | | | | LABORATORY | | + + + + + + | K | 3.9 | 3.5 - 5.1 | [facility] | [...] + + + + | CO2 | 16 (L) | 24 - 31 mmol/L | [facility] | | | | | | [facility] | | | | | | MEDICAL | | | | | | CENTER - | | | | | | LABORATORY | | + + + + + + | Anion Gap | 13 | 3 - 16 mmol/L | [facility] | | | | | | [facility] | | | | | | MEDICAL | | | | | | CENTER - | | | | | | LABORATORY | | + + + + + + | Glucose | 210 (H) | 70 - 109 mg/dL | [...] + + + + | Creatinine | 1.19 | 0.60 - 1.30 | [facility] | | | | | mg/dL | [facility] | | | | | | MEDICAL | | | | | | CENTER - | | | | | | LABORATORY | | + + + + + + | eGFR, | 60Comment: GLOMERULAR | >=60 | [facility] | | | non- | FILTRATION | mL/min/1.73m2 | [facility] | | | [place] | RATE,ESTIMATED | | MEDICAL | | | | mL/min/1.10l1Wbjf than | | CENTER - | | [...] + + + + | Calcium | 8.8 | 8.3 - 10.5 | [facility] | | | | | mg/dL | [facility] | | | | | | MEDICAL | | | | | | CENTER - | | | | | | LABORATORY | | + + + + + + | Albumin | 3.8 | 3.2 - 5.0 g/dL | [facility] | | | | | | [facility] | | | | | | MEDICAL | | | | | | CENTER - | | | | | | LABORATORY | | + + + + + + | Bilirubin | 0.5Comment: This is an | 0.1 - 1.5 mg/dL | [facility] | | | Total | appended report. These | | [facility] | | | | results have been | | MEDICAL | | | | appended to a previously | | CENTER - | | | | preliminary verified | | LABORATORY | | | | report. | | | | + + + + + + | Total | 6.5 | 6.0 - 7.8 g/dL | [facility] | | | Protein | | | [facility] | | | | | | MEDICAL | | | | | | CENTER - | | | | | | LABORATORY | | + + + + + + | AST | 30Comment: This is an | 10 - 42 U/L | [facility] | | | | appended report. These | | [facility] | | | | results have been | | MEDICAL | | | | appended to a previously | | CENTER - | | | | preliminary verified | | LABORATORY | | | | report. | | | | + + + + + + | ALT | 38Comment: This is an | 6 - 45 U/L | [facility] | | | | appended report. These | | [facility] | | | | results have been | | MEDICAL | | | | appended to a previously | | CENTER - | | | | preliminary verified | | LABORATORY | | | | report. | | | | + + + + + + | Alkaline | 92Comment: This is an | 40 - 110 U/L | [facility] | | | Phosphatase | appended report. These | | [facility] | | | | results have been | | MEDICAL | | | | appended to a previously | | CENTER - | | | | preliminary verified | | LABORATORY | | | | report. | | | | + + + + + + | Globulin | 2.7 | 2.1 - 3.8 g/dL | [facility] | | | | | | [facility] | | | | | | MEDICAL | | | | | | CENTER - | | | | | | LABORATORY | | + + + + + + | Albumin/Blanquita | 1.4 | 0.8 - 2.0 | [facility] | | | bulin Ratio | | | [facility] | | | | | | MEDICAL | | | | | | CENTER - | | | | | | LABORATORY | | + + + + + + | BUN/Creatin | 12.6 | | [facility] | | | ine Ratio | | | [facility] | [...] [address] | [place] | [phone] | | [facility] | | [address] | | | - LABORATORY | | | | + + + + + CBC with Differential (12/25/2016 4:33 PM PST) + + + + + + | Component | Value | Ref Range | Performed | Pathologist | | | | | At | Signature | + + + + + + | White Blood | 20.3 (H) | 4.0 - 11.0 K/uL | [facility] | | | Cells | | | [facility] | | | | | | MEDICAL | | | | | | CENTER - | | | | | | LABORATORY | | + + + + + + | Red Blood | 5.16 | 4.30 - 5.70 | [facility] | | | Cells | | M/uL | [facility] | | | | | | MEDICAL | | | | | | CENTER - | | | | | | LABORATORY | | + + + + + + | Hemoglobin | 14.9 | 13.5 - 18.0 | [facility] | | | | | g/dL | [facility] | | | | | | MEDICAL | | | | | | CENTER - | | | | | | LABORATORY | | + + + + + + | Hematocrit | 45.3 | 40.0 - 51.0 % | [facility] | | | | | | [facility] | | | | | | MEDICAL | | | | | | CENTER - | | | | | | LABORATORY | | + + + + + + | MCV | 87.8 | 83.0 - 101.0 fL | [facility] | | | | | | [facility] | | | | | | MEDICAL | | | | | | CENTER - | | | | | | LABORATORY | | + + + + + + | MCH | 28.8 | 28.0 - 35.0 pg | [facility] | | | | | | [facility] | | | | | | MEDICAL | | | | | | CENTER - | | | | | | LABORATORY | | + + + + + + | MCHC | 32.9 | 32.0 - 36.0 | [facility] | | | | | g/dL | [facility] | | | | | | MEDICAL | | | | | | CENTER - | | | | | | LABORATORY | | + + + + + + | RDW-CV | 15.0 (H) | <15.0 % | [facility] | | | | | | [facility] | | | | | | MEDICAL | | | | | | CENTER - | | | | | | LABORATORY | | + + + + + + | Platelet | 390 | 140 - 440 K/uL | [facility] | | | Count | | | [facility] | | | | | | MEDICAL | | | | | | CENTER - | | | | | | LABORATORY | | + + + + + + | MPV | 9.1 | fL | [facility] | | | | | | [facility] | | | | | | MEDICAL | | | | | | CENTER - | | | | | | LABORATORY | | + + + + + + | % | 47.5 | 45.0 - 82.0 % | [facility] | | | Neutrophils | | | [facility] | | | | | | MEDICAL | | | | | | CENTER - | | | | | | LABORATORY | | + + + + + + | % | 39.2 | 20.0 - 45.0 % | [facility] | | | Lymphocytes | | | [facility] | | | | | | MEDICAL | | | | | | CENTER - | | | | | | LABORATORY | | + + + + + + | % Monocytes | 7.3 | 4.0 - 12.0 % | [facility] | | | | | | [facility] | | | | | | MEDICAL | | | | | | CENTER - | | | | | | LABORATORY | | + + + + + + | % | 5.4 (H) | 0.0 - 5.0 % | [facility] | | | Eosinophils | | | [facility] | | | | | | MEDICAL | | | | | | CENTER - | | | | | | LABORATORY | | + + + + + + | % Basophils | 0.6 | 0.0 - 1.0 % | [facility] | | | | | | [facility] | | | | | | MEDICAL | | | | | | CENTER - | | | | | | LABORATORY | | + + + + + + | Absolute | 9.70 (H) | 1.80 - 8.50 | [facility] | | | Neutrophils | | K/uL | [facility] | | | | | | MEDICAL | | | | | | CENTER - | | | | | | LABORATORY | | + + + + + + | Absolute | 8.00 (H) | 0.60 - 3.20 | [facility] | | | Lymphocytes | | K/uL | [facility] | | | | | | MEDICAL | | | | | | CENTER - | | | | | | LABORATORY | | + + + + + + | Absolute | 1.50 (H) | 0.00 - 1.00 | [facility] | | | Monocytes | | K/uL | [facility] | | | | | | MEDICAL | | | | | | CENTER - | | | | | | LABORATORY | | + + + + + + | Absolute | 1.10 (H) | 0.00 - 0.40 | [facility] | | | Eosinophils | | K/uL | [facility] | | | | | | MEDICAL | | | | | | CENTER - | | | | | | LABORATORY | | + + + + + + | Absolute | 0.10 | 0.00 - 0.10 | [facility] | | | Basophils | | K/uL | [facility] | | | | [...] + | [facility] | [address] | [place] | [phone] | | [facility] | | [address] | | | - LABORATORY | | | | + + + + + ECG 12 lead (12/25/2016 4:30 PM PST) + + + + + + | Component | Value | Ref Range | Performed | Pathologist | | | | | At | Signature | + + + + + + | VENTRICULAR | 89 | BPM | [facility] | | | RATE EKG | | | | | + + + + + + | ATRIAL RATE | 241 | BPM | [facility] | | + + + + + + | QRS | 98 | ms | [facility] | | | DURATION | | | | | + + + + + + | Q-T | 362 | ms | [facility] | | | INTERVAL | | | | | + + + + + + | Q-T | 440 | ms | [facility] | | | INTERVAL | | | | | | (CORRECTED) | | | | | + + + + + + | QRS AXIS | 19 | degrees | [facility] | | + + + + + + | T AXIS | 107 | degrees | [facility] | | + + + + + + | INTERPRETAT | Atrial | | [facility] | | | ION TEXT | fibrillationInferior | | | | | | infarct , possibly | | | | | | acuteMarked ST | | | | | | abnormality, possible | | | | | | anteroseptal | | | | | | subendocardial injury | | | | | | ACUTE CO / STEMI | | | | | | Consider right | | | | | | ventricular involvement | | | | | | in acute inferior | | | | | | infarctAbnormal ECGWhen | | | | | | compared with ECG of | | | | | | 03-JUL-2016 | | | | | | 10:40,Significant | | | | | | changes have | | | | | | occurredConfirmed by | | | | | | MI LE MD | | | | | | ([id number]) on 12/25/2016 | | | | | | 7:41:13 PM | | | | + + [...] + | Diagnosis | + + | ST elevation myocardial infarction (STEMI) of inferior wall, initial episode of care | | ([facility]) - Primary Acute myocardial infarction of other inferior wall, initial episode of | | care | + + | ST elevation myocardial infarction involving right coronary artery ([facility]) Acute | | myocardial infarction of inferoposterior wall, initial episode of care | + + | 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 | | pectoris ([facility]) | + + | S/P CABG x 4 Postsurgical aortocoronary bypass status | + + | Status post insertion of drug eluting coronary artery stent | + + documented in this encounter Administered Medications + +--------+ +-------+------+------+ | Medication Order | MAR | Action | Dose | Rate | Site | | | Action | Date | | | | + +--------+ +-------+------+------+ | aspirin chewable tablet 81 mg | Given | 12/29/19 | 81 mg | | | | 81 mg, Oral, DAILY, First dose on | | 17 9:19 | | | | | 12/26/16 at 0900, | | AM PST | | | | | Post-op/Phase II | | | | | | + +--------+ +-------+------+------+ +-------+ +-------+---+---+ | Given | 12/28/19 | 81 mg | | | | | 17 9:55 | | | | | | AM PST | | | | +-------+ +-------+---+---+ | Given | 12/27/19 | 81 mg | | | | | 17 8:01 | | | | | | AM PST | | | | +-------+ +-------+---+---+ +---+---+ | | | +---+---+ + +-------+ +-------+---+---+ | atorvaSTATin (LIPITOR) tablet | Given | 12/28/19 | 80 mg | | | | 80 mg 80 mg, Oral, NIGHTLY, | | 17 8:00 | | | | | First dose on 12/25/16 at 2100 | | PM PST | | | | + +-------+ +-------+---+---+ +-------+ +-------+---+---+ | Given | 12/27/19 | 80 mg | | | | | 17 8:03 | | | | | | PM PST | | | | +-------+ +-------+---+---+ | Given | 12/26/19 | 80 mg | | | | | 17 8:06 | | | | | | PM PST | | | | +-------+ +-------+---+---+ +---+---+ | | | +---+---+ + +-------+ +-------+---+---+ | cetirizine (zyrTEC) tablet 10 | Given | 12/29/19 | 10 mg | | | | mg 10 mg, Oral, DAILY, First | | 17 9:20 | | | | | dose on 12/25/16 at 1915 | | AM PST | | | | + +-------+ +-------+---+---+ +-------+ +-------+---+---+ | Given | 12/28/19 | 10 mg | | | | | 17 9:55 | | | | | | AM PST | | | | +-------+ +-------+---+---+ | Given | 12/27/19 | 10 mg | | | | | 17 8:00 | | | | | | AM PST | | | | +-------+ +-------+---+---+ +---+---+ | | | +---+---+ + +-------+ +--------+---+---+ | cholecalciferol (VITAMIN D-3) | Given | 12/29/19 | 2,000 | | | | tablet 2,000 Units 2,000 Units, | | 17 9:19 | Units | | | | Oral, DAILY, First dose on Sun | | AM PST | | | | | 12/25/16 at 1915 | | | | | | + +-------+ +--------+---+---+ +-------+ +--------+---+---+ | Given | 12/28/19 | 2,000 | | | | | 17 9:55 | Units | | | | | AM PST | | | | +-------+ +--------+---+---+ | Given | 12/27/19 | 2,000 | | | | | 17 8:00 | Units | | | | | AM PST | | | | +-------+ +--------+---+---+ +---+---+ | | | +---+---+ + +-------+ +-------+---+---+ | clopidogrel (PLAVIX) tablet 75 | Given | 12/29/19 | 75 mg | | | | mg 75 mg, Oral, DAILY, First | | 17 9:19 | | | | | dose on 12/25/16 at 1845, Do | | AM PST | | | | | not give if already taken today, | | | | | | | Post-op/Phase II | | | | | | + +-------+ +-------+---+---+ +-------+ +-------+---+---+ | Given | 12/28/19 | 75 mg | | | | | 17 9:55 | | | | | | AM PST | | | | +-------+ +-------+---+---+ | Given | 12/27/19 | 75 mg | | | | | 17 8:00 | | | | | | AM PST | | | | +-------+ +-------+---+---+ +---+---+ | | | +---+---+ + +-------+ +-------+---+---+ | famotidine (PEPCID) tablet 20 | Given | 12/29/19 | 20 mg | | | | mg 20 mg, Oral, 2 TIMES DAILY, | | 17 9:19 | | | | | First dose on 12/25/16 at 2115 | | AM PST | | | | + +-------+ +-------+---+---+ +-------+ +-------+---+---+ | Given | 12/28/19 | 20 mg | | | | | 17 8:00 | | | | | | PM PST | | | | +-------+ +-------+---+---+ | Given | 12/28/19 | 20 mg | | | | | 17 9:55 | | | | | | AM PST | | | | +-------+ +-------+---+---+ +---+---+ | | | +---+---+ + +-------+ +-------+---+---+ | furosemide (LASIX) injection 20 | Given | 12/26/19 | 20 mg | | | | mg 20 mg, Intravenous, ONCE, | | 17 9:31 | | | | | 12/25/16 at 2130, For 1 dose | | PM PST | | | | + +-------+ +-------+---+---+ +---+---+ | | | +---+---+ + +-------+ +-------+---+---+ | lisinopril (PRINIVIL, ZESTRIL) | Given | 12/27/19 | 20 mg | | | | tablet 20 mg 20 mg, Oral, DAILY, | | 17 8:00 | | | | | First dose on 12/25/16 at 1915 | | AM PST | | | | + +-------+ +-------+---+---+ +-------+ +-------+---+---+ | Given | 12/26/19 | 20 mg | | | | | 17 8:06 | | | | | | PM PST | | | | +-------+ +-------+---+---+ +---+---+ | | | +---+---+ + +---------+ +-----+ +---+ | magnesium sulfate 2 g/50 mL | New Bag | 12/26/19 | 2 g | 25 mL/hr | | | IVPB 2 g 2 g, Intravenous, | | 17 10:26 | | | | | Administer over 120 Minutes, | | PM PST | | | | | ONCE, 12/25/16 at 2230, For 1 | | | | | | | dose, Maximum recommended | | | | | | | infusion rate = 1 gram/hour., | | | | | | + +---------+ +-----+ +---+ +---+---+ | | | +---+---+ + +-------+ +--------+---+---+ | metFORMIN (GLUCOPHAGE) tablet | Given | 12/29/19 | 500 mg | | | | 500 mg 500 mg, Oral, 2 TIMES | | 17 9:19 | | | | | DAILY WITH BREAKFAST & DINNER, | | AM PST | | | | | First dose on Mon12/28/16 at 0830, | | | | | | | Follow hospital guidelines to | | | | | | | determine if metFORMIN should be | | | | | | | held following procedures using | | | | | | | IV iodinated contrast., | | | | | | + +-------+ +--------+---+---+ +---+---+ | | | +---+---+ + +-------+ +---------+---+---+ | metoprolol tartrate (LOPRESSOR) | Given | 12/29/19 | 12.5 mg | | | | tablet 12.5 mg 12.5 mg, Oral, 2 | | 17 9:19 | | | | | TIMES DAILY, First dose on Sun | | AM PST | | | | | 12/25/16 at 2230 | | | | | | + +-------+ +---------+---+---+ +-------+ +---------+---+---+ | Given | 12/26/19 | 12.5 mg | | | | | 17 10:23 | | | | | | PM PST | | | | +-------+ +---------+---+---+ +---+---+ | | | +---+---+ + +-------+ +-------+---+---+ | pantoprazole (PROTONIX) DR | Given | 12/29/19 | 40 mg | | | | tablet 40 mg 40 mg, Oral, DAILY | | 17 6:22 | | | | | BEFORE BREAKFAST, First dose on | | AM PST | | | | | 12/26/16 at 0700, Do not cut or | | | | | | | crush. Therapeutic Interchange | | | | | | | for omeprazole . Shanti Stock | | | | | | | ENZO Parada 12/25/2016 19:05 | | | | | | | , | | | | | | + +-------+ +-------+---+---+ +-------+ +-------+---+---+ | Given | 12/28/19 | 40 mg | | | | | 17 7:32 | | | | | | AM PST | | | | +-------+ +-------+---+---+ | Given | 12/27/19 | 40 mg | | | | | 17 8:00 | | | | | | AM PST | | | | +-------+ +-------+---+---+ +---+---+ | | | +---+---+ + +---------+ +---+-------+---+ | sodium chloride 0.9% (NS) | New Bag | 12/28/19 | | 125 | | | infusion at 125 mL/hr, | | 17 9:55 | | mL/hr | | | Intravenous, CONTINUOUS, Starting | | AM PST | | | | | 12/27/16 at 1000, For 8 hours | | | | | | + +---------+ +---+-------+---+ +---+---+ | | | +---+---+ documented in this encounter
--- OUTSIDE RECORDS SUMMARY | ~2020-07-10 | XMS | Encounter Summary ---
Demographics + + + | Address | [address] | | | [place] [address] | + + + | Home Phone | | + + + | Preferred Language | Unknown | + + + | Marital Status | | + + + | [employer]ar[employer] Affiliation | Unknown | + + + | Race | White | + + + | Ethnic Group | Not or | + + + Author + + + | Author | [facility] | | | and [place] | + + + | Organization | [facility] | | | [...] [place] | | | | | [address] | | + + + + + | Roselia Hayes | ECON | Unknown | | + + + + + Care Team Providers + +------+ + | Care Category Development Manager Name | Role | Phone | + +------+ + | Cesar Ojeda MD | PCP | | + +------+ + Encounter Details +--------+ + + + + | Date | Type | Department | Care Team | Description | +--------+ + + + + | 08/01/ | Abstract | [facility] | Mi Mulligan, | | | 2015 | | CARDIOLOGY [address] | MD [address] | | | | | [place], | [place], [place] | | | | | [place] [address] | [address] | | | | | [phone] | | | +--------+ + + + [...] | + +--------+ + + + | EXTERNAL LAB: BUN | Routin | 08/01/2016 | | Results for this | | | e | | | procedure are in the | | | | | | results section. | + +--------+ + + + | EXTERNAL LAB: | Routin | 08/01/2016 | | Results for this | | GLUCOSE | e | | | procedure are in the | | | | | | results section. | + +--------+ + + + | EXTERNAL LAB: ALT | Routin | 08/01/2016 | | Results for this | | | e | | | procedure are in the | | | | | | results section. | + +--------+ + + + | EXTERNAL LAB: AST | Routin | 08/01/2016 | | Results for this | | | e | | | procedure are in the | | | | | | results section. | + +--------+ + + + | EXTERNAL LAB: | Routin | 08/01/2016 | | Results for this | | ALKALINE PHOSPHATASE | e | | | procedure are in the | | | | | | results section. | + +--------+ + + + | EXTERNAL LAB: | Routin | 08/01/2016 | | Results for this | | BILIRUBIN, TOTAL | e | | | procedure are in the | | | | | | results section. | + +--------+ + + + | EXTERNAL LAB: | Routin | 08/01/2016 | | Results for this | | ALBUMIN | e | | | procedure are in the | | | | | | results section. | + +--------+ + + + | EXTERNAL LAB: | Routin | 08/01/2016 | | Results for this | | PROTEIN, TOTAL | e | | | procedure are in the | | | | | | results section. | + +--------+ + + + | EXTERNAL LAB: | Routin | 08/01/2016 | | Results for this | | CALCIUM | e | | | procedure are in the | | | | | | results section. | + +--------+ + + + | EXTERNAL LAB: CARBON | Routin | 08/01/2016 | | Results for this | | DIOXIDE | e | | | procedure are in the | | | | | | results section. | + +--------+ + + + | EXTERNAL LAB: | Routin | 08/01/2016 | | Results for this | | CHLORIDE | e | | | procedure are in the | | | | | | results section. | + +--------+ + + + | EXTERNAL LAB: | Routin | 08/01/2016 | | Results for this | | POTASSIUM | e | | | procedure are in the | | | | | | results section. | + +--------+ + + + | EXTERNAL LAB: SODIUM | Routin | 08/01/2016 | | Results for this | | | e | | | procedure are in the | | | | | | results section. | + +--------+ + + + | EXTERNAL LAB: | Routin | 08/01/2016 | | Results for this | | TRIGLYCERIDES | e | | | procedure are in the | | | | | | results section. | + +--------+ + + + | EXTERNAL LAB: | Routin | 08/01/2016 | | Results for this | | CHOLESTEROL, HDL | e | | | procedure are in the | | | | | | results section. | + +--------+ + + + | EXTERNAL LAB: | Routin | 08/01/2016 | | Results for this | | CHOLESTEROL, TOTAL | e | | | procedure are in the | | | | | | results section. | + +--------+ + + + | EXTERNAL LAB: | Routin | 08/01/2016 | | Results for this | | CHOLESTEROL, LDL | e | | | procedure are in the | | | | | | results section. | + +--------+ + + + | EXTERNAL LAB: EGFR | Routin | 08/01/2016 | | Results for this | | | e | | | procedure are in the | | | | | | results section. | + +--------+ + + + | EXTERNAL LAB: | Routin | 08/01/2016 | | Results for this | | CREATININE | e | | | procedure are in the | | | | | | results section. | + +--------+ + + + | CMPI | Routin | 08/01/2016 | | Results for this | | | e | | | procedure are in the | | | | | | results section. | + +--------+ + + + | LIPID PANEL | Routin | 08/01/2016 | | Results for this | | | e | | | procedure are in the | | | | | | results section. | + +--------+ + + + | HEMOGLOBIN A1C | Routin | 08/01/2016 | | Results for this | | | e | | | procedure are in the | | | | | | results section. | + +--------+ + + + documented in this encounter Results CMP/ISTAT (08/01/2016) + +-------+ + + + | Component | Value | Ref Range | Performed | Pathologist | | | | | At | Signature | + +-------+ + + + | Anion Gap | 15 | 7 - 21 mmol/L | | | + +-------+ + + + | Bun/Creatin | 16.5 | 6.0 - 28.6 | | | | ine | | | | | + +-------+ + + + | Globulin | 2.6 | 1.8 - 3.5 | | | + +-------+ + + + | Albumin/Blanquita | 1.7 | 1.1 - 2.4 | | | | bulin Ratio | | | | | + +-------+ + + + + + | Specimen | + + | Blood specimen | | (specimen) | + + Lipid Panel (08/01/2016) + +-------+ + + + | Component | Value | Ref Range | Performed | Pathologist | | | | | At | Signature | + +-------+ + + + | VLDL | 33 | 4 - 40 | | | | Cholesterol | | | | | | [place] | | | | | + +-------+ + + + | Chol/HDL | 3.5 | 0.0 - 5.0 | | | | Ratio | | | | | + +-------+ + + + | Non-HDL | 81 | 0 - 130 | | | | Cholesterol | | | | | + +-------+ + + + + + | Specimen | + + | Blood specimen | | (specimen) | + + Hemoglobin A1C (08/01/2016) + +---------+ + + + | Component | Value | Ref Range | Performed | Pathologist | | | | | At | Signature | + +---------+ + + + | Hemoglobin | 6.5 (A) | 0 - 5.7 | | | | A1c, | | | | | | external | | | | | + +---------+ + + + + + | Specimen | + + | Blood specimen | | (specimen) | + + + + | Resulting Agency Comment | + + | [facility] | + + External Lab: BUN (08/01/2016) + +-------+ + + + | Component | Value | Ref Range | Performed | Pathologist | | | | | At | Signature | + +-------+ + + + | BUN, | 16 | 6 - 23 | | | | External | | | | | + +-------+ + + + + + | Resulting Agency Comment | + + | [facility] | + + External Lab: Glucose (08/01/2016) + +---------+ + + + | Component | Value | Ref Range | Performed | Pathologist | | | | | At | Signature | + +---------+ + + + | Glucose, | 179 (A) | 70 - 100 | | | | External | | | | | + +---------+ + + + + + | Resulting Agency Comment | + + | [facility] | + + External Lab: ALT (08/01/2016) + +-------+ + + + | Component | Value | Ref Range | Performed | Pathologist | | | | | At | Signature | + +-------+ + + + | ALT, | 38 | 7 - 52 | | | | External | | | | | + +-------+ + + + + + | Resulting Agency Comment | + + | [facility] | + + External Lab: AST (08/01/2016) + +-------+ + + + | Component | Value | Ref Range | Performed | Pathologist | | | | | At | Signature | + +-------+ + + + | AST, | 23 | 13 - 39 | | | | External | | | | | + +-------+ + + + + + | Resulting Agency Comment | + + | [facility] | + + External Lab: Alkaline Phosphatase (08/01/2016) + +-------+ + + + | Component | Value | Ref Range | Performed | Pathologist | | | | | At | Signature | + +-------+ + + + | ALP, | 81 | 30 - 128 | | | | External | | | | | + +-------+ + + + + + | Resulting Agency Comment | + + | [facility] | + + External Lab: Bilirubin, Total (08/01/2016) + +-------+ + + + | Component | Value | Ref Range | Performed | Pathologist | | | | | At | Signature | + +-------+ + + + | Bilirubin, | 0.9 | 0 - 1.2 | | | | Total, | | | | | | External | | | | | + +-------+ + + + + + | Resulting Agency Comment | + + | [facility] | + + External Lab: Albumin (08/01/2016) + +-------+ + + + | Component | Value | Ref Range | Performed | Pathologist | | | | | At | Signature | + +-------+ + + + | Albumin, | 4.3 | 3.5 - 5 | | | | External | | | | | + +-------+ + + + + + | Resulting Agency Comment | + + | [facility] | + + External Lab: Protein, Total (08/01/2016) + +-------+ + + + | Component | Value | Ref Range | Performed | Pathologist | | | | | At | Signature | + +-------+ + + + | Protein, | 6.9 | 6 - 8 | | | | Total, | | | | | | External | | | | | + +-------+ + + + + + | Resulting Agency Comment | + + | [facility] | + + External Lab: Calcium (08/01/2016) + +-------+ + + + | Component | Value | Ref Range | Performed | Pathologist | | | | | At | Signature | + +-------+ + + + | Calcium, | 9.5 | 8.4 - 10.2 | | | | External | | | | | + +-------+ + + + + + | Resulting Agency Comment | + + | [facility] | + + External Lab: Carbon Dioxide (08/01/2016) + +-------+ + + + | Component | Value | Ref Range | Performed | Pathologist | | | | | At | Signature | + +-------+ + + + | Carbon | 21 | 19 - 31 | | | | Dioxide, | | | | | | External | | | | | + +-------+ + + + + + | Resulting Agency Comment | + + | [facility] | + + External Lab: Chloride (08/01/2016) + +-------+ + + + | Component | Value | Ref Range | Performed | Pathologist | | | | | At | Signature | + +-------+ + + + | Chloride, | 107 | 95 - 112 | | | | External | | | | | + +-------+ + + + + + | Resulting Agency Comment | + + | [facility] | + + External Lab: Potassium (08/01/2016) + +-------+ + + + | Component | Value | Ref Range | Performed | Pathologist | | | | | At | Signature | + +-------+ + + + | Potassium, | 3.7 | 3.6 - 5.1 | | | | External | | | | | + +-------+ + + + + + | Resulting Agency Comment | + + | [facility] | + + External Lab: Sodium (08/01/2016) + +-------+ + + + | Component | Value | Ref Range | Performed | Pathologist | | | | | At | Signature | + +-------+ + + + | Sodium, | 139 | 132 - 143 | | | | External | | | | | + +-------+ + + + + + | Resulting Agency Comment | + + | [facility] | + + External Lab: eGFR (08/01/2016) + +-------+ + + + | Component | Value | Ref Range | Performed | Pathologist | | | | | At | Signature | + +-------+ + + + | eGFR, | 76 | 60 - 99,999 | | | | External | | | | | + +-------+ + + + + + | Specimen | + + | Blood specimen | | (specimen) | + + + + | Resulting Agency Comment | + + | [facility] | + + External Lab: Creatinine (08/01/2016) + +-------+ + + + | Component | Value | Ref Range | Performed | Pathologist | | | | | At | Signature | + +-------+ + + + | Creatinine, | 0.97 | 0.7 - 1.18 | | | | External | | | | | + +-------+ + + + + + | Specimen | + + | Blood specimen | | (specimen) | + + + + | Resulting Agency Comment | + + | [facility] | + + External Lab: Triglycerides (08/01/2016) + +---------+ + + + | Component | Value | Ref Range | Performed | Pathologist | | | | | At | Signature | + +---------+ + + + | Triglycerid | 166 (A) | 30 - 150 | | | | es, | | | | | | External | | | | | + +---------+ + + + + + | Specimen | + + | Blood specimen | | (specimen) | + + + + | Resulting Agency Comment | + + | [facility] | + + External Lab: Cholesterol, HDL (08/01/2016) + + + + + + | Component | Value | Ref Range | Performed | Pathologist | | | | | At | Signature | + + + + + + | HDL | 32.5 (A) | 40 - 99,999 | | | | Cholesterol | | mg/dl | | | | , External | | | | | + + + + + + + + | Specimen | + + | Blood specimen | | (specimen) | + + + + | Resulting Agency Comment | + + | [facility] | + + External Lab: Cholesterol, Total (08/01/2016) + +-------+ + + + | Component | Value | Ref Range | Performed | Pathologist | | | | | At | Signature | + +-------+ + + + | Cholesterol | 113 | 0 - 200 mg/dl | | | | , Total, | | | | | | External | | | | | + +-------+ + + + + + | Specimen | + + | Blood specimen | | (specimen) | + + + + | Resulting Agency Comment | + + | [facility] | + + External Lab: Cholesterol, LDL (08/01/2016) + +-------+ + + + | Component | Value | Ref Range | Performed | Pathologist | | | | | At | Signature | + +-------+ + + + | LDL | 47 | 0 - 100 | | | | Cholesterol | | | | | | , Direct, | | | | | | External | | | | | + +-------+ + + + + + | Specimen | + + | Blood specimen | | (specimen) | + + + + | Resulting Agency Comment | + + | [facility] | + + documented in this encounter Visit Diagnoses Not on filedocumented in this encounter"
--- OUTSIDE RECORDS SUMMARY | ~2020-07-10 | XMS | Encounter Summary ---
Demographics + + + | Address | [address] | | | [place] [address] | + + + | Home Phone | | + + + | Preferred Language | Unknown | + + + | Marital Status | | + + + | Voodoo Affiliation | Unknown | + + + | Race | White | + + + | Ethnic Group | Not or | + + + Author + + + | Author | [facility] | | | and [place] | + + + | Organization | [facility] | | | and [...] [place] | | | | | [address] | | + + + + + | Roselia Hayes | ECON | Unknown | | + + + + + Care Team Providers + +------+ + | Care Sales Technician Home Theater Name | Role | Phone | + +------+ + | Cesar Ojeda MD | PCP | | + +------+ + Encounter Details +--------+ + + + + | Date | Type | Department | Care Team | Description | +--------+ + + + + | 11/05/ | Abstract | [facility] | Franck Tsai MD | | | 2019 | | CARDIOLOGY [address] | | | | | [place], | [place], [place] | | | | | [place] [address] | [address] | | | | | [phone] | | | +--------+ + + + [...] | EXTERNAL LAB: BUN | Routin | 08/13/2019 | | Results for this | | | e | | | procedure are in the | | | | | | results section. | + +--------+ + + + | EXTERNAL LAB: | Routin | 08/13/2019 | | Results for this | | GLUCOSE | e | | | procedure are in the | | | | | | results section. | + +--------+ + + + | EXTERNAL LAB: ALT | Routin | 08/13/2019 | | Results for this | | | e | | | procedure are in the | | | | | | results section. | + +--------+ + + + | EXTERNAL LAB: AST | Routin | 08/13/2019 | | Results for this | | | e | | | procedure are in the | | | | | | results section. | + +--------+ + + + | EXTERNAL LAB: | Routin | 08/13/2019 | | Results for this | | ALKALINE PHOSPHATASE | e | | | procedure are in the | | | | | | results section. | + +--------+ + + + | EXTERNAL LAB: | Routin | 08/13/2019 | | Results for this | | BILIRUBIN, TOTAL | e | | | procedure are in the | | | | | | results section. | + +--------+ + + + | EXTERNAL LAB: | Routin | 08/13/2019 | | Results for this | | ALBUMIN | e | | | procedure are in the | | | | | | results section. | + +--------+ + + + | EXTERNAL LAB: | Routin | 08/13/2019 | | Results for this | | PROTEIN, TOTAL | e | | | procedure are in the | | | | | | results section. | + +--------+ + + + | EXTERNAL LAB: | Routin | 08/13/2019 | | Results for this | | MAGNESIUM | e | | | procedure are in the | | | | | | results section. | + +--------+ + + + | EXTERNAL LAB: | Routin | 08/13/2019 | | Results for this | | CALCIUM | e | | | procedure are in the | | | | | | results section. | + +--------+ + + + | EXTERNAL LAB: CARBON | Routin | 08/13/2019 | | Results for this | | DIOXIDE | e | | | procedure are in the | | | | | | results section. | + +--------+ + + + | EXTERNAL LAB: | Routin | 08/13/2019 | | Results for this | | CHLORIDE | e | | | procedure are in the | | | | | | results section. | + +--------+ + + + | EXTERNAL LAB: | Routin | 08/13/2019 | | Results for this | | POTASSIUM | e | | | procedure are in the | | | | | | results section. | + +--------+ + + + | EXTERNAL LAB: SODIUM | Routin | 08/13/2019 | | Results for this | | | e | | | procedure are in the | | | | | | results section. | + +--------+ + + + | EXTERNAL LAB: | Routin | 08/13/2019 | | Results for this | | TRIGLYCERIDES | e | | | procedure are in the | | | | | | results section. | + +--------+ + + + | EXTERNAL LAB: | Routin | 08/13/2019 | | Results for this | | CHOLESTEROL, HDL | e | | | procedure are in the | | | | | | results section. | + +--------+ + + + | EXTERNAL LAB: | Routin | 08/13/2019 | | Results for this | | CHOLESTEROL, TOTAL | e | | | procedure are in the | | | | | | results section. | + +--------+ + + + | EXTERNAL LAB: | Routin | 08/13/2019 | | Results for this | | CHOLESTEROL, LDL | e | | | procedure are in the | | | | | | results section. | + +--------+ + + + | EXTERNAL LAB: EGFR | Routin | 08/13/2019 | | Results for this | | | e | | | procedure are in the | | | | | | results section. | + +--------+ + + + | EXTERNAL LAB: | Routin | 08/13/2019 | | Results for this | | CREATININE | e | | | procedure are in the | | | | | | results section. | + +--------+ + + + | HEMOGLOBIN A1C | Routin | 08/13/2019 | | Results for this | | | e | | | procedure are in the | | | | | | results section. | + +--------+ + + + | COMPREHENSIVE | Routin | 08/13/2019 | | Results for this | | METABOLIC PANEL | e | | | procedure are in the | | | | | | results section. | + +--------+ + + + documented in this encounter Results Comprehensive Metabolic Panel (08/13/2019) + +-------+ + + + | Component | Value | Ref Range | Performed | Pathologist | | | | | At | Signature | + +-------+ + + + | Anion Gap | 15 | 7 - 21 mmol/L | | | + +-------+ + + + | Urea | 18 | 6 23 | | | | Nitrogen | | | | | | Clearance | | | | | + +-------+ + + + | BUN/Creatin | 15.9 | 6.0 - 28.6 | | | | ine Ratio | | | | | + +-------+ + + + | Globulin | 2.2 | 1.8 - 3.5 | | | + +-------+ + + + + + | Specimen | + + | Blood | + + Hemoglobin A1C (08/13/2019) + +-------+ + + + | Component | Value | Ref Range | Performed | Pathologist | | | | | At | Signature | + +-------+ + + + | Hemoglobin | 6.5 | % | | | | A1c | | | | | + +-------+ + + + + + | Specimen | + + | Blood | + + External Lab: BUN (08/13/2019) + +-------+ + + + | Component | Value | Ref Range | Performed | Pathologist | | | | | At | Signature | + +-------+ + + + | BUN, | 18 | 6 - 23 | | | | External | | | | | + +-------+ + + + External Lab: Glucose (08/13/2019) + +---------+ + + + | Component | Value | Ref Range | Performed | Pathologist | | | | | At | Signature | + +---------+ + + + | Glucose, | 116 (A) | 70 - 100 | | | | External | | | | | + +---------+ + + + External Lab: ALT (08/13/2019) + +-------+ + + + | Component | Value | Ref Range | Performed | Pathologist | | | | | At | Signature | + +-------+ + + + | ALT, | 19 | 13 - 39 | | | | External | | | | | + +-------+ + + + External Lab: AST (08/13/2019) + +-------+ + + + | Component | Value | Ref Range | Performed | Pathologist | | | | | At | Signature | + +-------+ + + + | AST, | 28 | 7 - 52 | | | | External | | | | | + +-------+ + + + External Lab: Alkaline Phosphatase (08/13/2019) + +-------+ + + + | Component | Value | Ref Range | Performed | Pathologist | | | | | At | Signature | + +-------+ + + + | ALP, | 65 | 31 - 120 | | | | External | | | | | + +-------+ + + + External Lab: Bilirubin, Total (08/13/2019) + +-------+ + + + | Component | Value | Ref Range | Performed | Pathologist | | | | | At | Signature | + +-------+ + + + | Bilirubin, | 0.5 | 0 - 1.2 | | | | Total, | | | | | | External | | | | | + +-------+ + + + External Lab: Albumin (08/13/2019) + +-------+ + + + | Component | Value | Ref Range | Performed | Pathologist | | | | | At | Signature | + +-------+ + + + | Albumin, | 3.7 | 3.5 - 5 | | | | External | | | | | + +-------+ + + + External Lab: Protein, Total (08/13/2019) + +---------+ + + + | Component | Value | Ref Range | Performed | Pathologist | | | | | At | Signature | + +---------+ + + + | Protein, | 5.9 (A) | 6 - 8.3 | | | | Total, | | | | | | External | | | | | + +---------+ + + + External Lab: Magnesium (08/13/2019) + +---------+ + + + | Component | Value | Ref Range | Performed | Pathologist | | | | | At | Signature | + +---------+ + + + | Magnesium, | 1.3 (A) | 1.7 - 2.5 | | | | External | | | | | + +---------+ + + + External Lab: Calcium (08/13/2019) + +-------+ + + + | Component | Value | Ref Range | Performed | Pathologist | | | | | At | Signature | + +-------+ + + + | Calcium, | 9.2 | 8.5 - 10.3 | | | | External | | | | | + +-------+ + + + External Lab: Carbon Dioxide (08/13/2019) + +-------+ + + + | Component | Value | Ref Range | Performed | Pathologist | | | | | At | Signature | + +-------+ + + + | Carbon | 24 | 19 - 31 | | | | Dioxide, | | | | | | External | | | | | + +-------+ + + + External Lab: Chloride (08/13/2019) + +-------+ + + + | Component | Value | Ref Range | Performed | Pathologist | | | | | At | Signature | + +-------+ + + + | Chloride, | 109 | 95 - 112 | | | | External | | | | | + +-------+ + + + External Lab: Potassium (08/13/2019) + +-------+ + + + | Component | Value | Ref Range | Performed | Pathologist | | | | | At | Signature | + +-------+ + + + | Potassium, | 3.9 | 3.6 - 5.1 | | | | External | | | | | + +-------+ + + + External Lab: Sodium (08/13/2019) + +---------+ + + + | Component | Value | Ref Range | Performed | Pathologist | | | | | At | Signature | + +---------+ + + + | Sodium, | 144 (A) | 132 - 143 | | | | External | | | | | + +---------+ + + + External Lab: Triglycerides (08/13/2019) + +-------+ + + + | Component | Value | Ref Range | Performed | Pathologist | | | | | At | Signature | + +-------+ + + + | Triglycerid | 134 | 30 - 150 | | | | es, | | | | | | External | | | | | + +-------+ + + + + + | Specimen | + + | Blood | + + External Lab: Cholesterol, HDL (08/13/2019) + +-------+ + + + | Component | Value | Ref Range | Performed | Pathologist | | | | | At | Signature | + +-------+ + + + | HDL | 33.6 | mg/dl | | | | Cholesterol | | | | | | , External | | | | | + +-------+ + + + + + | Specimen | + + | Blood | + + External Lab: Cholesterol, Total (08/13/2019) + +-------+ + + + | Component | Value | Ref Range | Performed | Pathologist | | | | | At | Signature | + +-------+ + + + | Cholesterol | 87 | mg/dl | | | | , Total, | | | | | | External | | | | | + +-------+ + + + + + | Specimen | + + | Blood | + + External Lab: Cholesterol, LDL (08/13/2019) + +-------+ + + + | Component | Value | Ref Range | Performed | Pathologist | | | | | At | Signature | + +-------+ + + + | LDL | 27 | | | | | Cholesterol | | | | | | , Direct, | | | | | | External | | | | | + +-------+ + + + + + | Specimen | + + | Blood | + + External Lab: eGFR (08/13/2019) + +-------+ + + + | Component | Value | Ref Range | Performed | Pathologist | | | | | At | Signature | + +-------+ + + + | eGFR, | 63 | | | | | External | | | | | + +-------+ + + + + + | Specimen | + + | Blood | + + External Lab: Creatinine (08/13/2019) + +-------+ + + + | Component | Value | Ref Range | Performed | Pathologist | | | | | At | Signature | + +-------+ + + + | Creatinine, | 1.13 | 0.7 - 1.18 | | | | External | | | | | + +-------+ + + + + + | Specimen | + + | Blood | + + documented in this encounter Visit Diagnoses Not on filedocumented in this encounter"
--- OUTSIDE RECORDS SUMMARY | ~2020-07-10 | XMS | Encounter Summary ---
Demographics + + + | Address | [address] | | | [place] [address] | + + + | Home Phone | | + + + | Preferred Language | Unknown | + + + | Marital Status | | + + + | Lutheran Affiliation | Unknown | + + + | Race | White | + + + | Ethnic Group | Not or | + + + Author + + + | Author | [facility] | | | and [place] | + + + | Organization | [facility] | | | [...] [place] | | | | | [id number] | | + + + + + | Roselia Hayes | ECON | Unknown | | + + + + + Care Team Providers + +------+ + | Care Registered Nurse First Assistant Name | Role | Phone | + +------+ + | Cesar Ojeda MD | PCP | | + +------+ + Encounter Details +--------+ + + + + | Date | Type | Department | Care Team | Description | +--------+ + + + + | 10/11/ | Hospital | [facility] | Carolina Maurice MD | | | 2019 | Encounter | MED CTR OR [facility] OP | [address] | | | | | [address] | [place], [place] | | | | | [place], [place] | [address] | | | | | [address] | [phone] | | | | | [phone] | | | +--------+ + + + [...] + + + | Blood Pressure | 156/66 | 10/11/2019 12:30 PM | | | | | PST | | + + + + + | Pulse | 55 | 10/11/2019 12:30 PM | | | | | PST | | + + + + + | Temperature | 37 C (98.6 F) | 10/11/2019 10:43 AM | | | | | PST | | + + + + + | Respiratory Rate | 16 | 10/11/2019 12:00 PM | | | | | PST | | + + + + + | Oxygen Saturation | 94% | 10/11/2019 12:30 PM | | | | | PST | | + + + + + | Inhaled Oxygen | - | - | | | Concentration | | | | + + + + + | Weight | 72.6 kg (160 lb 0.9 | 10/11/2019 7:54 AM | | | | oz) | PST | | + + + + + | Height | 170.2 cm (5' 7") | 10/11/2019 7:54 AM | | | | | PST | | + + + + + | Body Mass Index | 25.07 | 10/11/2019 7:54 AM | | | | | PST [...] + documented as of this encounter Discharge Instructions Instructions Rach Portillo RN - 10/11/2019Formatting of this note might be different fro m the original. Recovery After Procedural Sedation (Adult) You have been given medicine by vein to make you sleep during your procedure. This may have included both a pain medicine and sleeping medicine. Most of the effects have worn off. But you may still have some drowsiness for the next 6 to 8 hours. Home care Follow these guidelines when you get home: For the next 8 hours, you should be watched by a responsible adult. This person should m jovana sure your condition is not getting worse. Don't drink any alcoholfor the next [address], operate dangerous machinery,make important business or personal decisions , or sign legal documentsduring the next 24 hours. Note: Your healthcare provider may tell you not to take any medicine by mouth for pain or s leep in the next 4 hours. These medicines may react with the medicines you were given in the hospital. This could cause a much stronger response than usual. Follow-up care Follow up with your healthcare provider if you are not alert and back to your usual level o f activity within 12 hours. When to seek medical advice Call your healthcare provider right away if any of these occur: Drowsiness gets worse Weakness or dizziness gets worse Repeated vomiting You can't be awakened Date Last Reviewed: 08/09/201619991087-7270 [employer]. [address] [place] [address], [place] [address]. All righ ts reserved. This information is not intended as a substitute for professional medical care. Always follow your healthcare professional's instructions. Cystoscopy Cystoscopy is a procedure that lets your doctor look directly inside your urethra and bladd er. It can be used to: Help diagnose a problem with your urethra, bladder, or kidneys. Take a sample (biopsy) of bladder or urethral tissue. Treat certain problems (such as removing kidney stones). Place a stent to bypass an obstruction. Take special X-rays of the kidneys. Based on the findings, your doctor may recommend other tests or treatments. What is a cystoscope? A cystoscope is a telescope-like instrument that contains lenses and fiberoptics (small gla ss wires that make bright light). The cystoscope may be straight and rigid, or flexible to b end around curves in the urethra. The doctor may look directly into the cystoscope, or proje ct the image onto a monitor. Getting ready Ask your doctor if you should stop taking any medicines before the procedure. Ask whether you should avoid eating or drinking anything after midnight before the proce dure. Follow any other instructions your doctor gives you. Tell yourdoctor before the exam if you: Take any medicines, such as aspirin or blood thinners Have allergies to any medicines Are The procedure Cystoscopy is done in the doctor s office, surgery center, or hospital. The doctor and a nurse are present during the procedure. It takes only a few minutes, longer if a biopsy, X-r ay, or treatment needs to be done. During the procedure: You lie on an exam table on your back, knees bent and legs apart. You are covered with a drape. Your urethra and the area around it are washed. Anesthetic jelly may be applied to numb the urethra. Other pain medicine is usually not needed. In some cases, you may be offered a mild sedative to help you relax. If a more extensive procedure is to be done, such as a biop sy or kidney stone removal, general anesthesia may be needed. The cystoscope is inserted. A sterile fluid is put into the bladder to expand it. You ma y feel pressure from this fluid. When the procedure is done, the cystoscope is removed. After the procedure If you had a sedative, general anesthesia, or spinal anesthesia, you must have someone driv e you home. Once you re home: Drink plenty of fluids. You may have burning or light bleeding when you urinate this is normal. Medicines may be prescribed to ease any discomfort or prevent infection. Take these as d irected. Call your doctor if you have heavy bleeding or blood clots, burning that lasts more than a day, a fever [id number] (38 C), or trouble urinating. Date Last Reviewed: 10/23/201619996678-2072 [employer]. [address] [place] [address], [place] [address]. All righ ts reserved. This information is not intended as a substitute for professional medical care. Always follow your healthcare professional's instructions. Drink extra liquid until blood clears from urine. Finish remaining antibiotics. documented in this encounter Medications at Time [...] + + + +---------+ + + | furosemide (LASIX) | Take 20 mg by mouth | | 0 | 11/14/19 | | | 20 mg tablet | Daily. | | | 19 | | + + + +---------+ + [...] + + + +---------+ + + | ONETOUCH DELICA | | | 99 | 12/09/19 | | | LANCLAKESHA FINE MISC | | | | 17 | | + + + +---------+ + + | potassium chloride | Take 10 mEq by mouth | | 0 | 11/14/19 | | | (KLOR-CON) 10 mEq | Daily. | | | 19 | | | CR tablet | | | | | | + + + +---------+ + + | ciprofloxacin | Take 250 mg by mouth | | 0 | | | | (CIPRO) 250 mg | 2 times daily. | | | | 0 | | tablet | | | | | | + + + +---------+ + + | clopidogrel | Take 1 tablet by | 90 | 1 | 06/03/20 | | | (PLAVIX) 75 mg | mouth Daily. | tablet | | 19 | 0 | | tablet | | | | | | + + + +---------+ + + | lisinopril | Take 1 tablet by | 90 | 1 | 07/02/20 | | | (PRINIVIL, ZESTRIL) | mouth Daily. | tablet | | 19 | 0 | | 20 mg tablet | | | | | | + + + +---------+ + + | metoprolol | Take 1 tablet by | 30 | 5 | 03/19/20 | | | succinate | mouth Daily. | tablet | | 19 | 9 | | (TOPROL-XL) 25 mg 24 | | | | | | | hr tablet | [...] + + documented as of this encounter H&P Notes Carolina Maurice MD - 10/08/2019 7:18 AM PSTChief Complaint intermittent blood in urine History of Present Illness This 78 year old male has a history of superficial bladder cancer, last resected in 2009 un shirlene the care of Dr. Canchola. His right ureteral orifice became obstructed in 2010 and he requ ired antegrade stent placement February 2013 with stent exchange under general anesthetic every 3 months. I then performed transurethral resection of erythema around the right orifice inter preted as inflammation, and open right ureteroneocystostomy November 2015. Shallow polypoid tumor across the right superior collecting system was seen January 2016 but cytology was negative. Right posterior bladder erythema was interpreted as inflammation Febr uary 2016. Urine cytology indicated dysplasia and Urovysion FISH was positive January 2019. Cy stoscopy under anesthetic 02/01/19 performed biopsy of erythema on the posterior bladder rep orted as inflammation and completed bilateral flexible ureteroscopy without evidence of uppe r tract neoplasm. Intermittent gross hematuria lasting 1 to several voids and occurring every other week salo finch mid June 2019. Urinalysis 09/23/19 had many white cells and red cells with culture re porting 10,000-25,000 col/ml mixed jessica. Three phase abdomen CT 09/23/19 demonstrated bilat eral hydroureteronephrosis, mild renal cortical thinning but no other pathology to explain h ematuria. Recently the hematuria is every 1-3 weeks. he denies dysuria. He remains on Plavix following coronary bypass in 2003. Transurethral laser vaporization of the prostate was performed November 2016. Prostate appe ared well resected January 2019. He takes Lasix every other day. He voids 15 times while awake regardless of Lasix. He voids 3 times at night. Stream starts medium caliber but has termin al slowing, remaining continuous. He has moderate urgency with 5-10 minute warning. Once a m onth he may have urge incontinence. PSA was 1.October, and 0.2 in December 2018. Review of Systems Bowels move 1-3 times daily without hematochezia. No shortness of breath, angina, acid refl ux, edema, back pain or paresthesias and no history of stroke. Active Problems ?? 3-vessel CAD (I25.10) ?? Atrial flutter (I48.92) ?? Bacterial UTI (N39.0,A49.9) ?? Benign essential hypertension (I10) ?? Bladder cancer (C67.9) ?? Diabetes mellitus (E11.9) ?? Dysuria (R30.0) ?? Gross hematuria (R31.0) ?? Incomplete bladder emptying (R33.9) ?? 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 Urinary frequency (R35.0) ?? Vesicoureteral reflux, bilateral (N13.70) Past Medical History ?? History of Enlarged prostate with urinary retention (N40.1,R33.8) ?? History of Hydronephrosis with ureteral stricture (N13.1) Surgical History ?? History of Appendectomy ?? History of CABG ?? History of Cholecystectomy Laparoscopic ?? History of Cystoscopy With Resection Of Tumor ?? History of Tonsillectomy ?? History of Umbilical Hernia Repair ?? History of Ureteroneocystostomy Social History ?? Former smoker (Z87.891) He drinks 2 cups of coffee and 3-4 cans of cola daily. No alcohol. Allergies ?? Penicillins Vitals Vitals Panel Recorded: [id number] 03:28PM 1. Weight: 160 lb 2. Blood Pressure: 110 / 62 3. Heart Rate: 48 4. Pulse Quality: Regular Recorded: 23Sep2019 08:09AM 5. Weight: 160 lb 6. Blood Pressure: 112 / 58 7. Heart Rate: 68 8. Pulse Quality: Bounding Results/Data Results 23Sep2019 11:03AM CT - Abdomen combined [address] CT - Abdomen combined: ORDERING PHYSICIAN: CAROLINA MAURCIE; CLINICAL DATA: R31.0 Gross hematuria EXAMINATION: [60028] CT ABDOMEN COMBINED TECHNIQUE: Three-phase abdomen CT. Performed with 95 mL Omnipaque 350 intravenous contrast. COMPARISON: Retrograde pyelogram dated 02/01/2019 from [facility]. FINDINGS: Lung Base: Liver: Gallbaldder: Surgically absent. Bile Ducts: Unremarkable Spleen: Unremarkable Adrenal glands: Unremarkable Pancreas: Unremarkable Kidneys/Ureters/Bladder: Mild right renal cortical thinning and minimal atrophy noted. Bilateral hydroureteral nephrosis, where visualized. No definite point of obstruction noted. Finding is more marked on the right than the left. Degree of obstruction appears to have progressed when compared with the comparison retrograde pyelogram. Bowel and Mesentery: Descending colon diverticulosis. No findings to suggest bowel obstruction. Status post appendectomy. There is an increased amount of liquid and food debris within the stomach. An element of delayed gastric emptying is not excluded. Peritoneum: Unremarkable. Retroperitoneum: No aortic aneurysm. No retroperitoneal lymphadenopathy. Osseous structures: Bpzb-il-wpudadid degenerative changes. Soft tissues: Unremarkable. IMPRESSION: Interval progression of bilateral hydroureteronephrosis when compared with patient's comparison retrograde pyelogram. There is mild cortical thinning and atrophy associated with the right kidney, when compared with the left. No definite findings to suggest the source of patient's symptoms. Descending colon diverticulosis. There is an increased amount of liquid and food debris within the stomach. An element of delayed gastric emptying is not excluded. Electronically signed by: Tawanna Vital MD, Radiologist 09/23/2019 16:26 23Sep2019 08:30AM Urine Culture,Comprehensive Result 1: Comment Urine Culture,Comprehensive: Final report Urine Microscopic Exam Culture Status: Cultured per protocol Epithelials, Urine: 0-2 #/hpf Reference Range Negative Bacteria, Urine: Occasional Abnormal Reference Range Negative RBC, Urine: >50 #/hpf Abnormal Reference Range Negative WBC, Urine: >50 #/hpf Abnormal Reference Range Negative UA w/Microscopic, Rflx to Culture Blood: 2+ Abnormal Reference Range Negative Bilirubin: 1+ Abnormal Reference Range Negative Urobilinogen: 1+ mg/dL Abnormal Reference Range <1 Ketones: 1+ Abnormal Reference Range Negative Glucose: Negative g/dL Reference Range Negative Protein: 1+ Abnormal Reference Range Negative Nitrite: 1+ Abnormal Reference Range Negative Leuk Esterase, Urine: 2+ Abnormal Reference Range Negative pH: 5 pH Reference Range 5-8 Spec [place]: 1.010 Reference Range 1.010 - 1.030 Clarity: Turbid Abnormal Reference Range Clear Color: Sara Abnormal Reference Range Yellow Collection Type: Urine Clean catch [URICC] Bladder scan residual was 61 cc earlier this month. Current Meds ?? Aspirin EC 81 MG Oral Tablet Delayed Release; Therapy: (Recorded:20Nov2015) to Recorded ?? Atorvastatin Calcium 80 MG Oral Tablet; Therapy: 29Sep2017 to Recorded ?? Centrum Silver Ultra Womens Oral Tablet; Therapy: (Recorded:20Nov2015) to Recorded ?? Cetirizine HCl - 10 MG Oral Tablet; TAKE 1 TABLET DAILY NEEDED; Therapy: 25Dec2018 to Recorded ?? Ferrous Fumarate 325 (106 Fe) MG TABS; Therapy: (Recorded:23Nov2015) to Recorded ?? Fish Oil CAPS; Therapy: (Recorded:20Nov2015) to Recorded ?? Folic Acid TABS; Therapy: (Recorded:20Nov2015) to Recorded ?? Furosemide 20 MG Oral Tablet; Therapy: 14Nov2018 to Recorded ?? Lisinopril 20 MG Oral Tablet; Therapy: (Recorded:20Nov2015) to Recorded ?? metFORMIN HCl - 500 MG Oral Tablet; Take 2 tablets in the morning and 1 tablet in the evening; Therapy: (Recorded:25Dec2018) to Recorded ?? Metoprolol Succinate ER 25 MG Oral Tablet Extended Release 24 Hour; TAKE 1 TABLET DAILY; Therapy: 25Dec2018 to Recorded ?? Nitroglycerin 0.4 MG Sublingual Tablet Sublingual; PLACE 1 TABLET UNDER THE TONGUE EVERY 5 MINUTES FOR UP TO 3 DOSES NEEDED FOR CHEST PAIN.CALL 911 IF PAIN PERSISTS; Therapy: 25Dec2018 to Recorded ?? Plavix 75 MG Oral Tablet; Therapy: (Recorded:31Oct2017) to Recorded ?? Potassium Chloride ER 10 MEQ Oral Tablet Extended Release; Therapy: 14Nov2018 to Recorded ?? PriLOSEC OTC 20 MG Oral Tablet Delayed Release; Therapy: (Recorded:20Nov2015) to Recorded ?? Refresh Tears 0.5 % Ophthalmic Solution; Therapy: (Recorded:24Jan2019) to Recorded ?? Vitamin C 1000 MG Oral Tablet; Therapy: (Recorded:24Jan2019) to Recorded ?? Vitamin D3 50 MCG (1999 UT) Oral Capsule; Therapy: (Recorded:24Jan2019) to Recorded Physical Exam Alert well proportioned male with clear speech and normal gait. Symmetric facial expression . Lungs are clear to auscultation. Heart has regular rate without murmur. No flank tendernes s. Abdomen soft and nontender without mass. No inguinal hernia. Circumcised penis without le mario. Nonerythematous scrotum with normal testes and spermatic cords. Prostate estimated 15- 20 g size and smooth without nodules. Ankles without edema. Assessment ?? Gross hematuria (R31.0) ?? Bladder cancer (C67.9) Plan ?? BMP (Basic Metabolic Panel); Status:Active; Requested for:[id number]; Perform:[facility]; Due:[id number];Ordered; For:Bladder cancer; Ordered By:Carolina Maurice; ?? CBC; Status:Active; Requested for:[id number]; Perform:[facility]; Due:[id number];Ordered; For:Bladder cancer; Ordered By:Carolina Maurice; 1. Gross hematuria without confirmed UTI. Cystoscopy under anesthetic with bilateral ureter oscopy and biopsy or fulguration as indicated is proposed. Risks of infection and bleeding d iscussed. 2. History of superficial bladder tumor 3. Compromised detrusor. Addendum 10/07/19 - telephone call reporting urine culture 10,000-25,000 col/ml Staphylococ cus hemolyticus. 5 days Cipro prescribed. Cc: Dr. Cesar Ojeda Signatures Electronically signed by : Carolina Maurice M.D.; Oct 08 2019 7:20AM PST (Author)Electronicall y signed by Carolina Maurice MD at 10/08/2019 7:18 AM PSTdocumented in this encounter Miscellaneous Notes Op Note - Carolina Maurice MD - 10/11/2019 10:38 AM PSTFormatting of this note might be diff erent from the original. [facility] OPERATIVE NOTE Pt. Name/Age/: Margarito Stark 79 y.o. 1940 [facility]. 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 year old male with a history of sup erficial bladder cancer beginning prior to 2009 under the care of another urologist. Obstru ction of his right ureteral orifice was treated with open ureteroneocystostomy November 2015 . Transurethral laser vaporization the prostate was performed November 2016. Urine cytolog y indicated dysplasia and immunohistochemistry was positive January 2019. Cystoscopy under an esthetic January 2019 perform biopsy of posterior bladder erythema reported as inflammation an d also included bilateral ureteroscopy without evidence of upper tract neoplasm. Intermittent gross hematuria began again mid June 2019. Urinalysis had many white almita ls and red cells with culture growing 10,000-25,000 colonies mixed jessica. Three-phase abdom en CT September 2019 demonstrated bilateral hydroureteronephrosis consistent with his detruso r dysfunction mild bilateral renal cortical thinning but no other pathology. Repeat urine c ulture earlier this month recovers 10,000-25,000 colonies Staphylococcus hemolyticus and he began Cipro 2 days ago. Operative Findings: Operation: The patient was identified as Margarito Stark and the procedure was confirme d as stated above. The patient was placed in the supine position. SCD devices were applied. Following the induction of adequate general anesthesia, legs were placed in lithotomy and the genitalia prepped and draped in the usual sterile fashion. A 17 Bhutanese cystoscope was introduced. Pendulous and bulbar urethra was normal. Prostate fossa was resected and prostate mucosa had no varicosities. Bladder neck was widely patent. Bladder was entered and circumferentially inspected with 30 and 70 degree lenses. Promine nt thickened erythema was present across the mid trigone and just behind the trigone. 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 The 17 Bhutanese scope was eas laurie introduced into the right distal ureter and threaded several centimeters cephalad withou t evidence of luminal tumor. A 17 Bhutanese scope then inserted into the left orifice which ac complished surface debridement of irregular urothelium, and this material was collected for cytology. 0.035 inch diameter guidewire was threaded cephalad in the left ureter. Cystosco pe was removed. A 25 cm x 14 Bhutanese ureteral access sheath was threaded over the guidewire into the left distal ureter. Obturator was removed. Flexible ureteroscope was introduced i n the left ureter and advanced to the renal pelvis. All calyces and renal pelvis were inspe cted without evidence of abnormality. Ureteroscope was slowly withdrawn the entire length o f the ureter confirming only mucosal thickening at the left orifice. Cystoscope was again introduced. The 0.035 inch diameter guidewire was introduced to the r ight ureter and threaded cephalad. Cystoscope was removed. 14 Bhutanese by 25 cm ureteral ure teral access sheath easily advanced its full extent. Obturator was removed. Flexible urete roscope was introduced and guided to the right renal pelvis but all calyces and renal pelvis were inspected without evidence of tumor. Ureteroscope was slowly withdrawn visualizing th e entire right ureter without concerning mucosal changes. A 25 Bhutanese resectoscope was inserted in the bladder with obturator. Loop electrode was us ed with bipolar element and saline irrigation. Mucosa was resected from the inferior lip of the left orifice and submitted. Mucosa was then also sampled from the mid posterior trigon e erythema. Hemostasis was obtained. All instruments were removed. Estimated Blood Loss: none Transfused: no Drains: none Specimen (s): ID Type Source Tests Collected by Time Destination A : LEFT URETER Body Fluid Ureter, Left CYTOLOGY Carolina Maurice MD 10/11/2019 1008 Patholog y B : left ureteral orifice Tissue SPECIMEN TO PATHOLOGY Carolina Maurice MD 10/11/2019 1027 P athology C : posterior bladder Tissue SPECIMEN TO PATHOLOGY Carolina Maurice MD 10/11/2019 1027 Patho logy Complications: none Electronically Signed by: Carolina Maurice MD, 10/11/2019 10:[address] [facility] nterval H&P Note (unl inked) - Carolina Maurice MD - 10/11/2019 7:36 AM PSTNo interval change in history and physi dorcas exam. documented in this encounter Plan of Treatment Not on filedocumented as of this encounter Procedures + +--------+ + + + | Procedure Name | Priori | Date/Time | Associated Diagnosis | Comments | | | ty | | | | + +--------+ + + + | CYSTOSCOPY | | 10/11/2019 | Malignant neoplasm | | | URETEROSCOPY | | 9:42 AM | of urinary bladder, | | | | | PST | unspecified site | | | | | | (HCC) Gross | | | | | | hematuria | | + +--------+ + + + | CYSTOSCOPY TRANS | | 10/11/2019 | Malignant neoplasm | | | URETHRAL RESECTION | | 9:42 AM | of urinary bladder, | | | BLADDER TUMOR | | PST | unspecified site | | | | | | (HCC) Gross | | | | | | hematuria | | + +--------+ + + + | POC GLUCOSE | Routin | 10/11/2019 | | Results for this | | | e | 8:40 AM | | procedure are in the | | | | PST | | results section. | + +--------+ + + + | SURGICAL PATHOLOGY | Routin | 10/11/2019 | | Results for this | | EXAM | e | 12:00 AM | | procedure are in the | | | | PST | | results section. | + +--------+ + + + | MEDICAL CYTOLOGY | Routin | 10/11/2019 | | Results for this | | | e | 12:00 AM | | procedure are in the | | | | PST | | results section. | + +--------+ + + + | LABS - EXTERNAL SCAN | | 10/01/2019 | | Results for this | | [...] + + documented in this encounter Results POC Glucose (10/11/2019 8:40 AM PST) + +---------+ + + + | Component | Value | Ref Range | Performed | Pathologist | | | | | At | Signature | + +---------+ + + + | Glucose, | 127 (H) | 70 - 109 mg/dL | [facility] | | | POC | | | [facility] | | [...] [address] | [place] | [phone] | | [facility] | | [id number] | | | - LABORATORY | | | | + + + + + Medical Cytology (10/11/2019 12:00 AM PST) + + | Specimen | + + | | + + + + + | Narrative | Performed At | + + + | ORDERING PHYSICIAN: Carolina Maurice MD PATIENT NAME: NEVAE[facility] | [facility] | | MARGARITO ZAMAN GENDER: Nuria : 1940 SPECIMEN(S): A | INCYTE | | LEFT URETER GROSS DESCRIPTION: 90 ML OF CLEAR, SLIGHTLY PINK | | | FLUID IN CYTOLYT BETWEEN 3 VIALS CLINICAL HISTORY: NO | | | CLINICAL DATA PROVIDED LABORATORY PREPARATIONS: 1 MONOLAYER, 1 | | | CELL BLOCK CYTOLOGIC INTERPRETATION: Ureter, left, needle | | | sampling: Positive for malignant cells. DESCRIPTION: The | | | preparation is adequately cellular. The specimen contains greater than | | | 5-10 malignant urothelial cells with high nuclear to cytoplasmic | | | ratios, hyperchromasia, nuclear membrane irregularities and | | | abnormally distributed and dark-staining chromatin. SPECIMEN | | | ADEQUACY: Satisfactory for Evaluation PERFORMING LABORATORY: | | | Professional interpretation was performed by [facility]. | | | [facility] - [address] [place] [address] | | | (Can Pusher: Mello Lopez MD.; CLIA#:[id number]).8 | | | Technical preparation was performed by [facility] [id number] | | | [place] [address] and [facility] | | | [place] [address] [place] [address]. Diagnostician: | | | Neli ALVARADO ([facility]) Animal Behaviourist Diagnostician: | | | Mello Lopez MD Pathologist Electronically Signed | | | 10/21/2019 | | + + + + +---------+ + + | Performing | Address | City/State/Zipcode | Phone Number | | Organization | | | | + +---------+ + + | [facility] | | | | | [facility] | | | | + +---------+ + + Surgical Pathology Exam (10/11/2019 12:00 AM PST) + + | Specimen | + + | | + + + + + | Narrative | Performed At | + + + | SPECIMEN(S): A LEFT URETER ORIFICE SPECIMEN(S): B POSTERIOR | [facility] | | BLADDER SPECIMEN SOURCE: A. LEFT URETER ORIFICE B. POSTERIOR | [facility] | | BLADDER CLINICAL HISTORY: C67.9 (malignant neoplasm of bladder, | | | unspecified), R31.0 (gross hematuria) FINAL PATHOLOGIC DIAGNOSIS: | | | A. 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 - No muscularis propria (detrusor muscle) for evaluation. | | | B. Bladder, posterior, biopsy: - Reactive urothelial atypia in a | | | background of chronic cystitis with prominent eosinophils. | | | COMMENT: As part of [facility]' Quality Improvement Program, | | | this case was reviewed by another member of our pathology staff. | | | NAL:[facility]:C1NR MICROSCOPIC EXAMINATION: Sections of the posterior | | | bladder biopsy (B) demonstrate atypical urothelium characterized by | | | enlarged nuclei with prominent nucleoli associated with significant | | | inflammation. There is no loss of polarity and mitoses are not | | | increased. Immunohistochemical stains (with appropriately staining | | | controls) for CK20 and p53 were performed on the posterior bladder | | | tumor and show complete CK20 negativity and no increased p53 | | | staining. The combined morphologic features and immunophenotypic | | | profile is interpreted as reactive atypia. Histologic sections of | | | all submitted blocks are examined by light microscopy. These | | | findings, together with the gross examination, support the pathologic | | | diagnosis. GROSS DESCRIPTION: Two specimens are received in two | | | containers, labeled "RB." A. The specimen, labeled "RB, left | | | ureter orifice," is received in formalin and consists of one pink-garrett | | | soft tissue fragment that measures 0.1 cm in greatest dimension. | | | Specimen is entirely submitted in cassette (A1). B. The | | | specimen, labeled "RV, posterior bladder biopsy," is received in | | | formalin and consists of one pink-garrett soft tissue fragment that | | | measures 0.3 cm in greatest dimension. Specimen is entirely | | | submitted in cassette (B1). JS (under the direct supervision of a | | | pathologist) The Gross Description was prepared using a voice | | | recognition system. The report was reviewed for accuracy; however, | | | sound-alike word errors, addition and/or deletions may occur. If | | | there is any question about this report, please contact Client | | | Services. PERFORMING LABORATORY: The technical component was | | | performed by [facility] [address] | | | (Can Pusher: Lynn Kohler MD; CLIA# [id number]). Professional | | | [facility] | | | [place] [address] | | | (Can Pusher: Arnoldo Rogers MD; CLIA# [id number]). | | | Diagnostician: Abril Mendieta MD Pathologist Electronically Signed | | | 10/18/2019 | | + + + + +---------+ + + | Performing | Address | City/State/[facility] | Phone Number | | Organization | | | | + +---------+ + + | [facility] | | | | | [facility] | | | | + +---------+ + + LABS - EXTERNAL SCAN (10/01/2019 12:00 AM PST) + + + | Narrative | Performed At | + + + | Ordered by an | | | unspecified provider. | | + + + ECG - EXTERNAL SCAN (01/24/2019 12:00 AM PDT) + + + | Narrative | Performed At | + + + | Ordered by an | | | unspecified provider. | | + + + documented in this encounter Visit Diagnoses Not on filedocumented in this encounter Administered Medications + +--------+---------+------+------+------+ | Medication Order | MAR | Action | Dose | Rate | Site | | | Action | Date | | | | + +--------+---------+------+------+------+ + +---+ | albuterol-ipratropium 2.5-0.5 | | | mg/3 mL nebulizer solution 3 mL | | | 3 mL, Nebulization, ONCE PRN, | | | Wheezing, Shortness of Breath, | | | Starting Mon10/11/19 at 1038, | | | For 1 dose, Recovery/Phase I | | + +---+ | | | + +---+ + +---------+ +---+---+---+ | lactated ringers (LR) infusion | New Bag | 10/11/20 | | | | | at 10-100 mL/hr, Intravenous, | | 19 10:33 | | | | | CONTINUOUS, Starting 10/11/19 | | AM PST | | | | | at 0830, TKO., Pre-op | | | | | | + +---------+ +---+---+---+ +---------+ +--------+-------+---+ | New Bag | 10/11/20 | | | | | | 19 9:04 | | | | | | AM PST | | | | +---------+ +--------+-------+---+ | New Bag | 10/11/20 | 1,000 | 100 | | | | 19 8:41 | mLs | mL/hr | | | | AM PST | | | | +---------+ +--------+-------+---+ + +---+ | | | + +---+ | midazolam (VERSED) 1 mg/mL | | | injection 0.5-2 mg 0.5-2 mg, | | | Intravenous, EVERY 5 MIN PRN, | | | Anxiety, or agitation, Starting | | | Mon10/11/19 at 1038, Maximum | | | total dose 2 mg., Recovery/Phase | | | I | | + +---+ | | | + +---+ | morphine injection 1-4 mg 1-4 | | | mg, Intravenous, EVERY 5 MIN PRN, | | | Pain, Starting Mon10/11/19 at | | | 1038, First dose must be lowest | | | dose, can increase subsequent | | | doses by 1mg within dosing range. | | | If patient meets opioid | | | tolerant definition, can start | | | with 2mg dose. [Maximum total | | | PACU dose 20mg] Use Pasero | | | Sedation Scale. [Opioid tolerant | | | = One week or longer, | | | mafprm-sxb-ghjam use of at least | | | the following DAILY dose: 60mg | | | oral morphine, 60mg oral | | | hydrocodone, 30mg oral oxycodone, | | | 8mg oral hydromorphone, fentanyl | | | patch 25mcg/hr, or equivalent | | | dose of another opioid], | | | Recovery/Phase I | | + +---+ | | | + +---+ | ondansetron (ZOFRAN) injection | | | 4 mg 4 mg, Intravenous, ONCE | | | PRN, Nausea, Starting Fri | | | 10/11/19 at 1038, For 1 dose, | | | Recovery/Phase I | | + +---+ | | | + +---+ documented in this encounter
--- OUTSIDE RECORDS SUMMARY | ~2020-07-10 | XMS | Encounter Summary ---
Demographics + + + | Address | [address] | | | [place] [address] | + + + | Home Phone | | + + + | Preferred Language | Unknown | + + + | Marital Status | | + + + | Anabaptism Affiliation | Unknown | + + + | Race | White | + + + | Ethnic Group | Not or | + + + Author + + + | Author | [facility] | | | and [place] | + + + | Organization | [facility] | | | [...] [place] | | | | | [address] | | + + + + + | Roselia Hayes | ECON | Unknown | | + + + + + Care Team Providers + +------+ + | Care Public Service Director Name | Role | Phone | + [...] | | | | Diagnoses | | [place], | | | | | Crossing | | Lyndon Bauer MD | | | | | 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 | | [place], [place] | | | | | | | [address] | | | | | hydronephros | | Phone: | | | | | is Crossing | | [phone] | | | | | 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: | | | | | 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] | | | | | | | Procedures | | | | | | | RI | | | | | | | CYSTO/URETER | | | | | | | O/PYELOSCOPY | | | | | | | , CALCULUS | | | | | | | TX | | | +--------+--------+ + + + + Encounter Details +--------+ + + + + | Date | Type | Department | Care Team | Description | +--------+ + + + + | 01/28/ | Anesthesia | [facility] | Andrei Gonzalez, | | | 2015 | Event | MED CTR [facility] | [address] | | | | | [address] | [place], [place] | | | | | [place], [place] | [address] | | | | | [address] | | | | | | [phone] | | | +--------+ + + + + Anesthesia Record + + + + + | Procedure Name | Responsible | Anesthesia Start | Anesthesia Stop Time | | | Anesthesiologist | Time | | + + + + + | cystoscopy, right | Andrei Gonzalez MD | 01/29/16834 | 01/29/16928 | | ureteroscopy with | | | | | right ureter stent | | | | | removal (Right | | | | | Ureter) | | | | + + + + + +----+---+ + + | Da | T | Event | Comment | | te | i | | | | | m | | | | | e | | | +----+---+ + + | 04 | 0 | Antibiotic | | | /0 | 8 | Given | | | 8/ | 0 | | | | 20 | 1 | | | | 16 | | | | +----+---+ + + | | 0 | | | | | 8 | | | | | 2 | | | | | 7 | | | +----+---+ + + | | 0 | An Checkout | Pre-use anesthesia machine/equipment checkout. | | | 8 | | | | | 2 | | | | | 7 | | | +----+---+ + + | | 0 | An Start | Reassessment prior to anesthesia induction/procedure. | | | 8 | | | | | 3 | | | | | 5 | | | +----+---+ + + | | 0 | Preoxygenat | | | | 8 | ed | | | | 4 | | | | | 0 | | | +----+---+ + + | | 0 | An | | | | 8 | Induction | | | | 4 | | | | | 1 | | | +----+---+ + + | | 0 | An | | | | 8 | Intubation | | | | 4 | | | | | 2 | | | +----+---+ + + | | 0 | AN Bite | | | | 8 | Block | | | | 4 | | | | | 3 | | | +----+---+ + + | | 0 | First | | | | 8 | Inc/Proc St | | | | 5 | | | | | 6 | | | +----+---+ + + | | 0 | Breathing | | | | 9 | Spontaneous | | | | 1 | ly | | | | 8 | | | +----+---+ + + | | 0 | an stop | | | | 9 | data | | | | 2 | | | | | 4 | | | +----+---+ + + | | 0 | An Stop | Patient handed off to recovery nurse. | | | 2 | | | | | 9 | | | +----+---+ + + +------+ | Meds | +------+ + +---------+ | Name | Total | + +---------+ | fentaNYL | 100 mcg | + +---------+ | lidocaine 2% (PF) | 5 mg | + +---------+ | propofol | 100 mg | + +---------+ | dexamethasone | 10 mg | + +---------+ | ondansetron | 4 mg | + +---------+ | lactated ringers (LR) infusion | 800 mL | + +---------+ + + | Name | + + [...] + + | Periph | 12/11/15; 0635; qxnf-put-jbronz | 12/11/15 0635 by | 01/29/16 1120 [...] + + + | Read | 12/11/15; 946; lower; abdomen; | 12/11/15946 by | 01/29/16 164 by | | only - | 01/29/16; 1647 | Taylor Douglass, | Roxane Lopez, | | | | RN | RN | | [facility] | | | | | on | | | | +--------+ + + + | Urethr | 12/11/15; 1014; indicated due to | 12/11/15 1014 by | 01/29/16 164 by | | al | specific surgical procedure; | Taylor Douglass, | Roxane Lopez, | | Cathet | indwelling triple lumen catheter; | RN | RN | | er | 20; 1; 10; 10; 01/29/16; 1648 | | | +--------+ + + + | Drain/ | 12/11/15; 1014; #1; Left; | 12/11/15 1014 by | 01/29/16 165 by | | Device | collapsible closed device; 15fr | Taylor Douglass, | Roxane Lopez, | | Site | federico ; 01/29/16; 1656 | RN | RN | +--------+ + + + | Read | 12/11/15; 1026; Bilateral; | 12/11/15 1026 by | 01/29/16 1656 by | | only - | abdomen; 01/29/16; 1656 | Taylor Douglass, | Roxane Lopez, | | | | RN | RN | | [facility] | | | | | on | | | | +--------+ + + + | Periph | 01/29/16; 723; absl-xez-epoean | 01/29/16723 by | 01/29/16 1120 by | | eral | catheter system; 20 gauge, 1 10/26 | Precious Wagner, | Roxane Lopez, | | IV | in length; intradermal injection, | RN | RN | | | tolerated well; no longer | | | | | indicated, removed per | | | | | policy/procedure; 01/29/16; 1120 | | | +--------+ + + + | Airway | Placement Date: 01/29/16; | 01/29/16 08 by | 01/29/16 0943 by | | | Placement Time: 841; Mask | Andrei Gonzalez MD | Chioma Dodd, | | | Ventilation: EZ; Airway Type: | | RN | | | laryngeal mask, cuffed; Size: 4; | | | | | Tube Reference Point: secure and | | | | | patent; Placement Check: exhaled | | | | | CO2 detection device; Removal: | | | | | removed by RN, per protocol; | | | | | Removal Date: 01/29/16; Removal | | | | | Time: 0943 | | | +--------+ + + + | Read | 01/29/16; 0857; perineum; no | 01/29/16 0857 by | 01/29/16 1120 by | | only - | actual incision; 01/29/16; 1120 | Frances Murray RN | Roxane Lopez, | | | | | RN | | [facility] | | [...] encounter OR Notes Anesthesia Postprocedure Evaluation - Andrei Gonzalez MD - 01/29/2016 9:30 AM Joi gallagher of this note might be different from the original. ANESTHESIA POSTANESTHESIA EVALUATION Lokesh Stark 75 y.o. male 1940 [id number] Procedure(s) cystoscopy, right ureteroscopy with right ureter stent removal (Right Ureter) Filed Vitals: 01/29/16 0700 01/29/16 0928 BP: 128/72 104/61 Pulse: 67 59 Temp: 36.3 C (97.3 F) 36.6 C (97.9 F) Resp: 16 10 SpO2: 96% 94% Cooperates? Yes Mental Status Performs simple tasks. Respiratory Satisfactory - Airway patent (self maintained). Cardiovascular Satisfactory Blood pressure and heart rate acceptable Temperature Satisfactory Pain Satisfactory N/V Control Satisfactory Hydration Satisfactory No signs of dehydration Complications None apparent Electronically signed by Andrei Gonzalez MD 01/29/2016 9:30 [facility] nesthesia Preprocedu re Evaluation - Andrei Gonzalez MD - 01/29/2016 7:57 AM PDTFormatting of this note might b e different from the original. ANESTHESIA PREANESTHESIA EVALUATION Lokesh Stark 75 y.o. male 1940 [id number] Procedure(s): Scope of Right Kidney to Evaluate Healing of Ureter (Right Ureter) Medical history, anesthesia, medications, allergy, NPO status verified histories reviewed. Labs reviewed. Review of Systems / Med History Cardiovascular (+) hypertension, CAD Gastrointestinal/Hepatic (+) reflux/GERD, hyperlipidemia Endocrine (+) Diabetes: type 2, NIDDM Cancer (+) bladder cancer Physical Exam Airway MP I, TM >3 FB, Mouth opening >2 FB. Neck: full ROM, extends >30 degrees. Dental Sara sly normal except where noted below.; CV Rhythm regular. Rate Normal. (-) murmur. Pulm Clear to auscultation bilaterally. Neuro Grossly normal. Anesthesia Plan ASA 3 Type: General. Induction: Intravenous. Potential problems: None anticipated. Monitors: Standard ASA monitors. Consent statement:Anesthetic plan, alternatives, risks and benefits discussed with patient and spouse. Risks discussed included (but were not limited to): sore throat, nausea, heart problems, re spiratory events, pain, perioperative CV events, . Consenting person understands and agrees to proceed. PARQ. documented in this en counter Plan of Treatment Not on filedocumented as of this encounter Visit Diagnoses Not on filedocumented in this encounter Administered Medications + +--------+ +-------+------+------+ | Medication Order | MAR | Action | Dose | Rate | Site | | | Action | Date | | | | + +--------+ +-------+------+------+ | dexamethasone (DECADRON) 10 | Given | 01/29/20 | 10 mg | | | | mg/mL injection Intravenous, | | 16 8:43 | | | | | PRN, Starting Mon01/29/16 at 0843, | | AM PDT | | | | | Anesthesia Intra-op | | | | | | + +--------+ +-------+------+------+ +---+---+ | | | +---+---+ + +-------+ +--------+---+---+ | fentaNYL injection PRN, Pain, | Given | 01/29/20 | 25 mcg | | | | Starting Mon01/29/16 at 0837, | | 16 9:23 | | | | | Anesthesia Intra-op | | AM PDT | | | | + +-------+ +--------+---+---+ +-------+ +--------+---+---+ | Given | 01/29/20 | 25 mcg | | | | | 16 8:52 | | | | | | AM PDT | | | | +-------+ +--------+---+---+ | Given | 01/29/20 | 50 mcg | | | | | 16 8:37 | | | | | | AM PDT | | | | +-------+ +--------+---+---+ +---+---+ | | | +---+---+ + +-------+ +------+---+---+ | lidocaine (PF) 2% injection | Given | 01/29/20 | 5 mg | | | | PRN, Starting 01/29/16 at 0841, | | 16 8:41 | | | | | Anesthesia Intra-op | | AM PDT | | | | + +-------+ +------+---+---+ +---+---+ | | | +---+---+ + +-------+ +------+---+---+ | ondansetron (ZOFRAN) injection | Given | 01/29/20 | 4 mg | | | | PRN, Nausea, Vomiting, Starting | | 16 8:43 | | | | | 01/29/16 at 0843, Anesthesia | | AM PDT | | | | | Intra-op | | | | | | + +-------+ +------+---+---+ +---+---+ | | | +---+---+ + +-------+ +--------+---+---+ | propofol (DIPRIVAN) injection | Given | 01/29/20 | 100 mg | | | | PRN, Starting 01/29/16 at 0841, | | 16 8:41 | | | | | Anesthesia Intra-op | | AM PDT | | | | + +-------+ +--------+---+---+ +---+---+ | | | +---+---+ documented in this encounter"
--- OUTSIDE RECORDS SUMMARY | ~2020-07-10 | XMS | Encounter Summary ---
Demographics + + + | Address | [address] | | | [place] [address] | + + + | Home Phone | | + + + | Preferred Language | Unknown | + + + | Marital Status | | + + + | Mosque Affiliation | Unknown | + + + | Race | White | + + + | Ethnic Group | Not or | + + + Author + + + | Author | [facility] | | | and [place] | + + + | Organization | [facility] | | | [...] [place] | | | | | [address] | | + + + + + | Roselia Hayes | ECON | Unknown | | + + + + + Care Team Providers + +------+ + | Care Financial Operations Clerk Name | Role | Phone | + +------+ + | Cesar Ojeda MD | PCP | | + +------+ + Reason for Visit + +--------+ + | Reason | Onset | Comments | | | Date | | + +--------+ + | Hospital Follow-up | 07/05/ | | | | 2015 | | + +--------+ + Encounter Details +--------+ + + + + | Date | Type | Department | Care Team | Description | +--------+ + + + + | 07/05/ | Telephone | [facility] | Mehreen Waller, | Hospital Follow-up | | 2015 | | [facility] | PharmD [address] | | | | | [address] [place] | [facility] | | | | | [place] [address] | [place] [address] | | | | | [phone] | [phone] | | +--------+ + + + + [...] this encounter Miscellaneous Notes Telephone Encounter - Mehreen Waller PharmD - 07/05/2016 2:57 PM [facility]-Up P kimo Call Date discharged: 07/04/16 Primary Diagnosis: NSTEMI Education done/topics reviewed: 1. Health Status- Doing well 2. Diagnosis education- reviewed pts knowledge of primary diagnosis and provided additional education. 3. Medication Reconciliation - Medications reconciled over the phone with patient looking at prescription bottles. 4. Reminded pt of scheduled follow-up appointment. 5. Reviewed what do in emergency as well as a non-emergent situation. Verified pt has doct or's contact information. Date of follow-up appointment with PCP: Dr. Ojeda on 07/06/16; Dr. Mulligan in 2-3 weeks Electronically signed by: Mehreen [place]er PHARMD 07/05/2016 15:06 documented in thi s encounter Plan of Treatment Not on filedocumented as of this encounter Visit Diagnoses Not on filedocumented in this encounter"
--- OUTSIDE RECORDS SUMMARY | ~2020-07-10 | XMS | Encounter Summary ---
Demographics + + + | Address | [address] | | | [place] [address] | + + + | Home Phone | | + + + | Preferred Language | Unknown | + + + | Marital Status | | + + + | Jehovah'S Witness Affiliation | Unknown | + + + | Race | White | + + + | Ethnic Group | Not or | + + + Author + + + | Author | [facility] | | | and [place] | + + + | Organization | [facility] | | | and [...] [place] | | | | | [address] | | + + + + + | Roselia Hayes | ECON | Unknown | | + + + + + Care Team Providers + +------+ + | Care Materials Intern Name | Role | Phone | + [...] | | | | Diagnoses | | [place], | | | | | Malignant | | Lyndon Bauer MD | | | | | neoplasm of | | [address] | | | | | urinary | | [place] | | | | | bladder, | | [place], [place] | | | | | unspecified | | [address] | | | | | site (HCC) | | Phone: | | | | | Malignant | | [phone] | | | | | neoplasm of | | Fax: | | | | | urinary | | [phone] | | | | | bladder, | | | | | | | unspecified | | | | | | | site (HCC) | | | | | | | [C67.9] | | | | | | | Procedures | | | | | | | TURBT [place] | | | | | | | CYSTOURETHRO | | | | | | | SCOPY,URETER | | | | | | | CATHETER | | | | | | | [place] | | | | | | | CYSTOURETHRO | | | | | | | SCOPY,FULGUR | | | | | | | .5-2CM LESN | | | | | | | CYSTOSCOPY | | | | | | | TRANS | | | | | | | URETHRAL | | | | | | | RESECTION | | | | | | | BLADDER | | | | | | | TUMOR with | | | | | | | RETROAGRADE | | | | | | | PYELOGRAPHY | | | +--------+--------+ + + + + Encounter Details +--------+---------+ + + + | Date | Type | Department | Care Team | Description | +--------+---------+ + + + | 02/01/ | Surgery | [facility] | Lyndon Romero MD | CYSTOSCOPY TRANS | | 2019 | | MED CTR OR INTRA OP | [address] [facility] | URETHRAL RESECTION | | | | [address] | [place], [place] | BLADDER TUMOR W/ | | | | [place], [place] | [address] | BILATERAL | | | | [address] | [phone] | URETEROSCOPY | | | | [phone] | | | +--------+---------+ + + + Social History [...] | Blood Pressure | 115/72 | 02/01/2019 2:20 PM | | | | | PDT | | + + + + + | Pulse | 64 | 02/01/2019 2:20 PM | | | | | PDT | | + + + + + | Temperature | 36.8 C (98.2 F) | 02/01/2019 1:55 PM | | | | | PDT | | + + + + + | Respiratory Rate | 13 | 02/01/2019 2:20 PM | | | | | PDT | | + + + + + | Oxygen Saturation | 93% | 02/01/2019 2:20 PM | | | | | PDT | | + + + + + | Inhaled Oxygen | - | - | | | Concentration | | | | + + + + + | Weight | 74 kg (163 lb 2.3 | 02/01/2019 11:50 AM | | | | oz) | PDT | | + + + + + | Height | 170.2 cm (5' 7") | 02/01/2019 11:50 AM | | | | | PDT | | + + + + + | Body Mass Index | 25.55 | 02/01/2019 11:50 AM | | | | | PDT [...] as of this encounter Discharge Instructions Instructions Chioma Sanchez RN - 02/01/2019 You may have blood in urine for a few days. Dr. Romero Cystoscopy Cystoscopy is a procedure that lets [...] lasts more than a day, a fever [id number] (38 C), or trouble urinating. Date Last Reviewed: 10/23/201619992221-3569 [employer]. [address] [place] [address]. All righ ts reserved. This information is not intended as a substitute for professional medical care. Always follow your healthcare professional's instructions. will call with biopsy results. No activity restriction. documented in this encounter Medications at Time [...] + + + +---------+ + + | ONEHAROLDO ESCALANTE | | | 99 | 12/09/19 | | | NORMA RAMIREZ MISC | | | | 17 | | + + + +---------+ + + | potassium chloride | Take 10 mEq by mouth | | 0 | 11/14/19 | | | (KLOR-CON) 10 mEq | Daily. | | | 19 | | | CR tablet | | | | | | + + + +---------+ + + | ADVAIR DISKUS | | | 0 | 10/17/20 | | | 250-50 MCG/DOSE | | | | 18 | 9 | | diskus inhaler | | | | | | + + + +---------+ + + | clopidogrel | Take 300 mg x 1 on | 34 | 5 | 10/04/20 | | | (PLAVIX) 75 mg | 10/05 pm then take | tablet | | 18 | 9 | | tablet | 75 mg daily | | | | | + + + +---------+ + + | lisinopril | Take 20 mg by mouth | | 0 | | | | (PRINIVIL, ZESTRIL) | Daily. | | | | 9 | | 20 mg tablet | | | | | | + + + +---------+ + + | metoprolol | Take 1 tablet by | 30 | 5 | 07/05/20 | | | succinate | mouth Daily. | tablet | | 18 | 9 | | (TOPROL-XL) 25 mg [...] documented as of this encounter H&P Notes Lyndon Romero MD - 01/30/2019 7:10 AM PDTChief Complaint Lab abnormality History of Present Illness This 78 year old male has a history of bladder tumor since January 1985 and currently has a urine cytology with dysplasia and positive Urovysion. His last superficial disease was resected in 2009. His right ureteral orifice became obstru cted in 2010. He required right antegrade stent placement February 2013 with subsequent exchange of his double-J stent every 3 months under general anesthetic. I performed transurethral res ection of erythema around the right orifice (interpreted as inflammation) and open right ure teroneocystostomy with stent 12/11/15. Shallow polypoid mucosa was seen in the right superior renal collecting system in January with lumbar cytology negative. He was taking tamsulosin October 2016 and had variable caliber stream with terminal straini ng. He underwent transurethral laser vaporization of the prostate, and biopsy of right poste rior bladder erythema interpreted as inflammation 12/02/16. Cystoscopy 12/25/18 demonstrate s a wide bore proximal pendulous urethral stenosis, resected prostate having right lobe harry chaka regrowth covering 30% of the lumen, grade 2 over 4 bladder trabeculation with bilateral gaping ureteral orifices and no erythema or papillary tumor. He takes morning Lasix (treating edema). He voids 10 times by noon, 5 times between noon a nd sleep, and 1-2 times at night. He reports a medium caliber stream which is usually joy nuous but has occasional dysuria, occasional terminal straining. He denies urgency. PSA was 1.October and 0.22 December 2018. Review of Systems Daily bowel movement. No stroke, shortness of breath, nocturnal dyspnea, angina, back pain or paresthesias, skin disease. 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 He suffered another PA and underwent additional angioplasty March 2018. He is fo llowed by cardiology at [facility]. Surgical History History of Appendectomy History of CABG History of Cholecystectomy Laparoscopic History of Cystoscopy With Resection Of Tumor History of Tonsillectomy History of Umbilical Hernia Repair History of Ureteroneocystostomy Social History Former smoker (Z87.891) He drinks 2 cups of coffee and 3-4 cans of cola daily. No alcohol. Current Meds Aspirin EC 81 MG Oral Tablet Delayed Release; Therapy: (Recorded:20Nov2015) to Recorded Atorvastatin Calcium 80 MG Oral Tablet; Therapy: 29Sep2017 to Recorded Centrum Silver Ultra Womens Oral Tablet; Therapy: (Recorded:20Nov2015) to Recorded Cetirizine HCl - 10 MG Oral Tablet; TAKE 1 TABLET DAILY NEEDED; Therapy: 25Dec2018 to Recorded Ferrous Fumarate 325 (106 Fe) MG TABS; Therapy: (Recorded:23Nov2015) to Recorded Fish Oil CAPS; Therapy: (Recorded:20Nov2015) to Recorded Folic Acid TABS; Therapy: (Recorded:20Nov2015) to Recorded Furosemide 20 MG Oral Tablet; Therapy: 14Nov2018 to Recorded Lisinopril 20 MG Oral Tablet; Therapy: (Recorded:20Nov2015) to Recorded metFORMIN HCl - 500 MG Oral Tablet; Take 2 tablets in the morning and 1 tablet in the evening; Therapy: (Recorded:25Dec2018) to Recorded Metoprolol Succinate ER 25 MG Oral Tablet Extended Release 24 Hour; TAKE 1 TABLET DAILY; Therapy: 25Dec2018 to Recorded Nitroglycerin 0.4 MG Sublingual Tablet Sublingual; PLACE 1 TABLET UNDER THE TONGUE EVERY 5 MINUTES FOR UP TO 3 DOSES NEEDED FOR CHEST PAIN.CALL 911 IF PAIN PERSISTS; Therapy: 25Dec2018 to Recorded Plavix 75 MG Oral Tablet; Therapy: (Recorded:31Oct2017) to Recorded Potassium Chloride ER 10 MEQ Oral Tablet Extended Release; Therapy: 14Nov2018 to Recorded PriLOSEC OTC 20 MG Oral Tablet Delayed Release; Therapy: (Recorded:20Nov2015) to Recorded Refresh Tears 0.5 % Ophthalmic Solution; Therapy: (Recorded:24Jan2019) to Recorded Vitamin C 1000 MG Oral Tablet; Therapy: (Recorded:24Jan2019) to Recorded Vitamin D3 2000 UNIT Oral Capsule; Therapy: (Recorded:24Jan2019) to Recorded Allergies Penicillins Vitals Vitals Panel Recorded: 24Jan2019 03:55PM Weight: 159 lb BMI Calculated: 24.9 BSA Calculated: 1.83 Blood Pressure: 108 / 70 Heart Rate: 60 Results/Data Comprehensive chemistry normal except minimally elevated AST of 44 on 12/25/18. PSA 0.2 on 12/25/18. WBC 8.2, hematocrit 46, platelet count 212,000 on . EKG sinus rhythm with evidence of his previous inferolateral infarct on 01/24/19 UA 0-2 wbc and 0-2 rbc/hpf 12/25/18. Tests Bladder scan residual 38 cc. Physical Exam Alert male well proportioned. Symmetric facial expression. Clear speech and normal gait. Lungs are clear to auscultation. Heart has regular rate without murmur. No flank tenderne ss. Abdomen flat and soft without tenderness. Nonerythematous scrotum with normal testes. Circumcised penis with normal urethral meatus. Normal anal tone with 15-20 g smooth prosta te. Assessment Bladder cancer (C67.9) Vesicoureteral reflux, bilateral (N13.70) Plan Outpatient Authorization; [Do Not Release]; Status:Need Information - Financial Authorization; Requested for:01Feb2019; Perform:[facility]; Order Comments:TUR bladder tumor [id number] pyelography [id number]; Due:17A [id number]; Last Updated By:Carlos A Harris V; 01/24/2019 5:05:45 PM;Ordered; For:Bladder cance r; Ordered By:Lyndon Romero; 1. History of superficial bladder cancer since 1984. Urine cytology with dysplasia and Ur ovysion positive without visible disease in the bladder. Plan cystoscopy with bilateral ret rograde ureteral pyelography, possible ureteroscopy, mapping biopsies of the bladder. Risk of infection and bleeding discussed. 2. Compromised detrusor with bilateral refluxing ureters. 25 minute office visit predomin antly in counseling. Cc: Dr. Cesar Ojeda Signatures Electronically signed by : Lyndon Romero M.D.; Jan 30 2019 7:11AM PST (Author) documented in this enc ounter Miscellaneous Notes Op Note - Lyndon Romero MD - 02/01/2019 2:07 PM PDTFormatting of this note might be diff erent from the original. [facility] OPERATIVE NOTE Pt. Name/Age/: Lokesh Stark 78 y.o. 1940 Med. Record Number: [id number] Date of Operation/Procedure: 02/01/2019 Preoperative Diagnosis: History of bladder tumor (HCC) [C67.9] Postoperative Diagnosis: Same Surgeon: Lyndon Romero MD Transmitter Engineer(s): None Anesthesia Provider(s): Anesthesiologist: Sanjay Maldonado MD Anesthesia Type: General Procedure(s): CYSTOSCOPY TRANS URETHRAL RESECTION BLADDER TUMOR BILATERAL URETEROSCOPY Operative Indications: Lokesh Stark is a 78 y.o. year old male with a history of shantel dder tumor beginning 1984. His last visible superficial disease was resected in 2009. His right ureter has been reimplanted because of stenosis. He has a fibrotic bladder with previ ously resected prostate. Recent cystoscopy was visibly negative but his cytology and immuno histochemistry were positive. Operative Findings: Operation: The patient was identified as Lokesh Stark and the procedure was confirme d as stated above. The patient was placed in the supine position. SCD devices were applied. Following the induction of adequate general anesthesia, legs were placed in lithotomy and t he genitalia prepped and draped in the usual sterile fashion. A 23 Romanian cystoscope was visibly introduced. Pendulous and bulbar urethra was normal. P rostate was uniformly resected and had normal mucosa. The bladder was circumferentially ins pected noting a 2.5-3 cm zone of uniform erythema on the posterior bladder. Both ureteral o rifices were extremely large diameter and easily accepted the cystoscope. A 5 Romanian open and ureteral catheter was threaded up the left ureter to the renal pelvis. Contrast was injected highlighting renal pelvis anatomy. A 0.035 inch diameter guidewire w as introduced to the left renal pelvis and the ureteral catheter removed. A 25 cm by 14 [facility] ureteral access sheath was advanced over the safety wire. Obturator was removed. Flexi ble ureteroscope was introduced. The remainder of the cephalad ureter, renal pelvis and all calyces were inspected without evidence of erythema or neoplasm. Ureteroscope and access s awais was slowly withdrawn and the entire remainder ureter visualized without abnormality. Cystoscope was reintroduced. The 5 Romanian open-ended renal catheter was advanced up the ri ght ureter to the renal pelvis. Contrast was injected in right renal pelvis anatomy visuali zed without filling defect. A 0.035 inch diameter guidewire was introduced to the right chad al pelvis through the ureteral catheter, and then the ureteral catheter removed. Cystoscope was removed and the 14 Romanian by 25 cm access sheath advanced Rodarte over the guidewire. Ob turator was removed. Flexible ureteroscope was introduced. Remainder of the right cephalad ureter, renal pelvis and calyces were all visualized without evidence of neoplasm or erythe ma. Ureteroscope and access sheath with slowly withdrawn visualizing the remainder of the l ower ureter without evidence of abnormality. A 24 Romanian continuous flow resectoscope was introduced with the obturator. The loop elect rode was used on a cut current of 100. Three zones were resected on the patch of erythema o n the posterior bladder and collected for histology. The remainder of erythema was fulgurat ed. Estimated Blood Loss: none Transfused: no Drains: none Specimen (s): ID Type Source Tests Collected by Time Destination A : POSTERIOR BLADDER Tissue Bladder SPECIMEN TO PATHOLOGY Lyndon Romero MD 02/01/2019 1346 Pathology Complications: none Electronically Signed by: Lyndon Romero MD, 02/01/2019 14:07 [facility] nterval H&P Note (unl inked) - Lyndon Romero MD - 02/01/2019 12:47 PM PDTNo interval change in history and physi dorcas [...] this | | RETROGRADE | e | 1:51 PM | | procedure are in the | | | | PDT | | results section. | + +--------+ + + + | CYSTOSCOPY TRANS | | 02/01/2019 | Malignant neoplasm | | | URETHRAL RESECTION | | 12:55 PM | of urinary bladder, | | | BLADDER TUMOR | | PDT | unspecified site | | | | | | (HCC) | | + +--------+ + + + | EXTRA LAVENDER TOP | Routin | 02/01/2019 | | Results for this | | TUBE | e | 12:15 PM | | procedure are in the | | | | PDT | | results section. | + +--------+ + + + | PTT | Routin | 02/01/2019 | | Results for this | | | e | 12:15 PM | | procedure are in the | | | | PDT | | results section. | + +--------+ + + + | PROTIME INR | Routin | 02/01/2019 | | Results for this | | | e | 12:15 PM | | procedure are in the | | | | PDT | | results section. | + +--------+ + + + | POC GLUCOSE | Routin | 02/01/2019 | | Results for this | | | e | 12:08 PM | | procedure are in the [...] + + documented in this encounter Results [place] Pyelogram Retrograde (02/01/2019 1:51 PM PDT) + + | Specimen | + [...] | | + +---------+ + + Extra Lavender Top Tube (02/01/2019 12:15 PM PDT) + +-------+ + + + | Component | Value | Ref Range | Performed | Pathologist | | | | | At | Signature | + +-------+ + + + | Extra | Done | | [facility] | | | Lavender | | | [facility] | | | Top Tube | [...] [address] | [place] | [phone] | | [facility] | | [address] | | | - LABORATORY | | | | + + + + + PTT (02/01/2019 12:15 PM PDT) + +-------+ + + + [...] + | [facility] | [address] | [place] | [phone] | | [facility] | | [address] | | | - LABORATORY | | | | + + + + + Protime INR (02/01/2019 12:15 PM PDT) + + + + + + | Component | Value | Ref Range | Performed | Pathologist | | | | | At | Signature | + + + + + + | Prothrombin | 14.5 (H) | 11.3 - 13.9 | [facility] | | | Time | | seconds | [facility] | | | | | | MEDICAL | | | | | | CENTER - | | | | | | LABORATORY | | + + + + + + | INR | 1.1Comment: Usual Oral | 0.9 - 1.1 | [facility] | | | | Anticoagulation Range: | | [facility] | | | | 2.0 - 3.0High | | MEDICAL | | | | Level Oral | | CENTER - | [...] [address] | [place] | [phone] | | [facility] | | [address] | | | - LABORATORY | | | | + + + + + POC Glucose (02/01/2019 12:08 PM PDT) + +-------+ + + + | Component | Value | Ref Range | Performed | Pathologist | | | | | At | Signature | + +-------+ + + + | Glucose, | 102 | 70 - 109 mg/dL | [facility] | | | POC | | | [facility] | | [...] [address] | [place] | [phone] | | [facility] | | [address] | | | - LABORATORY | | | | + + + + + Surgical Pathology Exam (02/01/2019 12:00 AM PDT) + + | Specimen | + + | | + + + + + | Narrative | Performed At | + + + | SPECIMEN(S): A POSTERIOR BLADDER SPECIMEN SOURCE: Andrea HYMAN | [place] [facility] | | BLADDER CLINICAL HISTORY: C67.9 (malignant neoplasm of bladder, | [facility] | | unspecified) FINAL PATHOLOGIC DIAGNOSIS: Posterior bladder, | | | TURBT: - 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 - Negative for evidence of malignancy. COMMENT: | | | As part of [employer]' Quality Improvement Program, this case | | | was reviewed by another member of our pathology staff. | | | JVR:CLR:anna:C2NR MICROSCOPIC EXAMINATION: Histologic sections of | | [...] component was performed by | | | [facility] [address] (Medical | | | Director: Lynn Kohler MD; IA# [id number]). Professional | | | [facility] | | [address] | | | [address] (Special Education Educational Assistant: Lico Hernandez M.D.). Diagnostician: | | | Lico Hernandez MD Pathologist Electronically Signed 02/04/2019 | | | | | + + [...] + + LABS - EXTERNAL SCAN (12/25/2018 12:00 AM PST) + + + | Narrative | Performed At | + + + | Ordered by an | | | unspecified provider. | | + + + documented in this encounter Visit Diagnoses + + | Diagnosis | + + | Malignant neoplasm of urinary bladder, unspecified site (HCC) | + + documented in this encounter Administered Medications + +--------+ + +------+------+ | Medication Order | MAR | Action | Dose | Rate | Site | | | Action | Date | | | | + +--------+ + +------+------+ | acetaminophen (TYLENOL) tablet | Given | 02/02/20 | 1,000 mg | | | | 1,000 mg 1,000 mg, Oral, ONCE, | | 19 12:31 | | | | | 02/01/19 at 1215, For 1 dose, | | PM PDT | | | | | Pre-op | | | | | | + +--------+ + +------+------+ + +---+ | | | + +---+ | albuterol 2.5 mg/3 mL nebulizer | | | solution 2.5 mg 2.5 mg, | | | Nebulization, ONCE PRN, Wheezing, | | | Starting 02/01/19 at 1149, | | | For 1 dose, RT will administer., | | | Pre-op | | + +---+ | | | + +---+ | albuterol 2.5 mg/3 mL nebulizer | | | solution 2.5 mg 2.5 mg, | | | Nebulization, ONCE PRN, Wheezing, | | | Starting Mon02/01/19 at 1358, | | | For 1 dose, Notify anesthesia if | | | patient is wheezing and does not | | | have a history of asthma or COPD | | | or current smoking., | | | Recovery/Phase I | | + +---+ | | | + +---+ | albuterol-ipratropium 2.5-0.5 | | | mg/3 mL nebulizer solution 3 mL | | | 3 mL, Nebulization, ONCE PRN, | | | Wheezing, Starting Mon02/01/19 at | | | 1149, For 1 dose, Pre-op | | + +---+ | | | + +---+ | albuterol-ipratropium 2.5-0.5 | | | mg/3 mL nebulizer solution 3 mL | | | 3 mL, Nebulization, ONCE PRN, | | | Wheezing, Shortness of Breath, | | | Starting Mon02/01/19 at 1358, For | | | 1 dose, Recovery/Phase I | | + +---+ | | | + +---+ + +-------+ +--------+---+---+ | ciprofloxacin (CIPRO) tablet | Given | 02/02/20 | 500 mg | | | | 500 mg 500 mg, Oral, ONCE, Mon | | 12:31 | | | | | 02/01/19 at 1215, For 1 dose, Give | | PM PDT | | | | | 2 hours before or 6 hours after | | | | | | | antacids, dairy, calcium, iron, | | | | | | | or zinc., Pre-op, Indications: | | | | | | | Surgical Prophylaxis | | | | | | + +-------+ +--------+---+---+ + +---+ | | | + +---+ | dextrose 50% injection 12.5-25 | | | g 12.5-25 g, Intravenous, EVERY | | | 15 MIN PRN, Low Blood Sugar, Give | | | 12.5g (25 mL) IV if blood | | | glucose 50-69 mg/dL. Give 25g | | | (50 mL) IV if blood glucose < 50, | | | Starting 02/01/19 at 1149, | | | Repeat in 15 min if blood glucose | | | remains < 70 mg/dL. Repeat | | | blood glucose in 30 min once | | | blood glucose > 70., Pre-op | | + +---+ | | | + +---+ | dextrose 50% injection 12.5-25 | | | g 12.5-25 g, Intravenous, EVERY | | | 15 MIN PRN, Low Blood Sugar, For | | | hypoglycemia. Give 12.5g (25ml) | | | IV if blood glucose 50-69 | | | mg/dL. Give 25g (50ml) IV if | | | blood glucose < 50, Starting Fri | | | 02/01/19 at 1358, Give over 2 min. | | | Repeat in 15 min if blood | | | glucose remains < 70 mg/dL. | | | Repeat blood glucose in 30 min | | | once blood glucose > 70., | | | Recovery/Phase I | | + +---+ | | | + +---+ | ePHEDrine 50 mg/mL injection 5 | | | mg 5 mg, Intravenous, EVERY 5 | | | MIN PRN, if SBP <90., Starting | | | 02/01/19 at 1358, Hold if HR > | | | 100. Maximum total dose 20mg., | | | Recovery/Phase I | | + +---+ | | | + +---+ | fentaNYL (PF) injection 25-50 | | | mcg 25-50 mcg, Intravenous, | | | EVERY 5 MIN PRN, Pain, Starting | | | 02/01/19 at 1358, Maximum | | | total dose 250 mcg. PACU IV | | | Narcotic Priority: Only use | | | fentanyl for immediate post-op | | | pain (one dose) or breakthrough | | | pain when any other IV narcotics | | | ordered have been ineffective (if | | | ordered). If both morphine and | | | hydromorphone are ordered, use | | | morphine first, and use | | | hydromorphone if morphine | | | ineffective., Recovery/Phase I | | + +---+ | | | + +---+ | hydrALAZINE (APRESOLINE) | | | injection 5 mg 5 mg, | | | Intravenous, EVERY 20 MINUTES | | | PRN, For SBP > 180, DBP > 100, | | | Starting Mon02/01/19 at 1358, | | | Hold if HR > 100. Maximum total | | | dose 40 mg. Use labetalol first | | | if available., Recovery/Phase I | | + +---+ | | | + +---+ | HYDROmorphone (DILAUDID) | | | injection 0.2-0.5 mg 0.2-0.5 mg, | | | Intravenous, EVERY 5 MIN PRN, | | | Pain, Starting 4/12/19 at | | | 1358, Maximum total dose 4 mg. | | | PACU IV Narcotic Priority: Only | | | use fentanyl for immediate | | | post-op pain (one dose) or | | | breakthrough pain when any other | | | IV narcotics ordered have been | | | ineffective (if ordered). If | | | both morphine and hydromorphone | | | are ordered, use morphine first, | | | and use hydromorphone if morphine | | | ineffective., Recovery/Phase I | | + +---+ | | | + +---+ + +-------+ +--------+---+ + | iohexol (OMNIPAQUE 350) 350 | Given | 02/02/20 | 20 mLs | | Surgical | | mg/mL injection PRN, Starting | | 19 1:40 | | | Site | | 02/01/19 at 1340, Intra-op | | PM PDT | | | | + +-------+ +--------+---+ + + +---+ | | | + +---+ | labetalol (TRANDATE) 5 mg/mL | | | injection 5 mg 5 mg, | | | Intravenous, EVERY 5 MIN PRN, For | | | SBP > 180, DBP > 100, Starting | | | Mon02/01/19 at 1358, Hold if HR < | | | 60. Maximum total dose 300mg. | | | Notify anesthesia if patient | | | requires more than 50mg., | | | Recovery/Phase I | | + +---+ | | | + +---+ | lactated ringers (LR) infusion | | | at 100 mL/hr, Intravenous, | | | CONTINUOUS, Starting Mon02/01/19 | | | at 1215, Pre-op | | + +---+ | | | + +---+ + +---------+ +---+-------+---+ | lactated ringers (LR) infusion | New Bag | 02/02/20 | | 100 | | | at 10-100 mL/hr, Intravenous, | | 19 12:31 | | mL/hr | | | CONTINUOUS, Starting Mon02/01/19 | | PM PDT | | | | | at 1215, TKO., Pre-op | | | | | | + +---------+ +---+-------+---+ + +---+ | | | + +---+ | meperidine (DEMEROL) injection | | | 12.5-25 mg 12.5-25 mg, | | | Intravenous, PRN, Shivering, | | | Starting 02/01/19 at 1358, For | | | 2 doses, May Repeat once in 5 | | | min., Recovery/Phase I | | + +---+ | | | + +---+ | metoclopramide (REGLAN) 5 mg/mL | | | injection 10 mg 10 mg, | | | Intravenous, EVERY 6 HOURS PRN, | | | Nausea, Vomiting, Starting Fri | | | 02/01/19 at 1358, For 2 doses, | | | Protect from light., | | | Recovery/Phase I | | + +---+ | | | + +---+ | ondansetron (ZOFRAN) injection | | | 4 mg 4 mg, Intravenous, ONCE | | | PRN, Nausea, Starting 02/01/19 | | | at 1358, For 1 dose, | | | Recovery/Phase I | | + +---+ | | | + +---+ | promethazine (PHENERGAN) (IV | | | ONLY) injection 6.25 mg 6.25 mg, | | | Intravenous, EVERY 15 MIN PRN, | | | Nausea, Vomiting, Starting Fri | | | 02/01/19 at 1358, For 4 doses, | | | TAKE PRECAUTIONS WHEN | | | ADMINISTERING Dilute to 10-20mL | | | with NS. Give over 2-3 minutes | | | into large vein. Use ondansetron | | | first if both are ordered., | | | Recovery/Phase I | | + +---+ | | | + +---+ documented in this encounter
--- OUTSIDE RECORDS SUMMARY | ~2020-07-10 | XMS | Encounter Summary ---
Demographics + + + | Address | [address] | | | [place] [address] | + + + | Home Phone | | + + + | Preferred Language | Unknown | + + + | Marital Status | | + + + | Bahai Affiliation | Unknown | + + + | Race | White | + + + | Ethnic Group | Not or | + + + Author + + + | Author | [facility] | | | and [place] | + + + | Organization | [facility] | | | [...] [place] | | | | | [address] | | + + + + + | Roselia Hayes | ECON | Unknown | | + + + + + Care Team Providers + +------+ + | Care Account Planner Name | Role | Phone | + [...] | | | | | | | [phone] | | | | | hydronephros | | Phone: | | | | | is Crossing | | [phone] | | | | | 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: | | | | | stricture of | | [phone] | | | | | ureter with | | | | | | | | | | | | | | hydronephros | | | | | | | is [N13.1] | | | | | | | Procedures | | | | | | | [place] | | | | | | | [...] + + + + | 01/28/ | Hospital | [facility] | Lyndon Romero MD | | | 2016 | Encounter | MED CTR OR INTRA OP | [address] | | | | | [address] | [place], [place] | | | | | [place], [place] | [address] | | | | | [address] | [phone] | | | | | [phone] | | | +--------+ + + + [...] + + + | Blood Pressure | 132/75 | 01/29/2016 11:20 AM | | | | | PDT | | + + + + + | Pulse | 64 | 01/29/2016 11:20 AM | | | | | PDT | | + + + + + | Temperature | 36.6 C (97.9 F) | 01/29/2016 9:28 AM | | | | | PDT | | + + + + + | Respiratory Rate | 18 | 01/29/2016 11:20 AM | | | | | PDT | | + + + + + | Oxygen Saturation | 97% | 01/29/2016 11:20 AM | | | | | PDT | | + + + + + | Inhaled Oxygen | - | - | | | Concentration | | | | + + + + + | Weight | 75.3 kg (166 lb) | 01/29/2016 7:00 AM | | | | | PDT | | + + + + + | Height | 170.2 cm (5' 7") | 01/29/2016 7:00 AM | | | | | PDT | | + + + + + | Body Mass Index | 26 | 01/29/2016 7:00 AM | | | | | PDT | | + + + + + documented in this encounter Discharge Instructions Instructions Lyndon Romero MD - 01/29/2016Call Dr. Romero if you have right flank pain af ter the first few days following surgery. documented in this encounter Medications at Time [...] +---------+ + + | metFORMIN | Take 500 mg by mouth | | 0 | | | | (GLUCOPHAGE) 500 mg | 2 times daily (with | | | | 6 | | tablet | breakfast & | | | | | | | dinner). | | | | | + + [...] encounter H&P Notes Lyndon Romero MD - 01/29/2016 8:29 AM PDTNo interval change in history and physical exam . 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 Unable to successfully evaluate surgical repair with to pical anesthetic today. Plan ureteroscopy under anesthetic. Urine culture today. Updated CBC and basic chemistry before surgery. Cc: Dr. Cesar Ojeda History of Present Illness This 75 year old male underwent transurethral resection of erythema around his right orific e interpreted as inflammation, and open right ureteroneocystostomy 12/11/15. Cystoscopy toda y attempted advancing a guidewire adjacent to the stent, for possible stent removal without success. He is a prior patient of Dr. Canchola. He has a history of low-grade bladder tumor since the mid . He was lost to followup, and returned in 2003 with multiple low-grade bladder afsaneh ors. He was again lost to followup and returned in 2009 with superficial bladder tumor. His right ureteral orifice obstructed following resection in 2010. He required right antegrade s tent placement February 2013 with subsequent exchange of his double-J stent every 3 months under general anesthetic. Stent was most recently changed 09/11/15, and cytology from that day was suspicious. He voids every 1.5-3 hours during the day and every 2-3 hours at night. Stream is slow and continuous with occasional double voiding. He denies dysuria or incontinence. He has daily r ust-colored urine. He has no personal history of kidney stones. Review of Systems No shortness of breath or chest pain. Daily bowel movement without hematochezia. No stroke , seizure, gastric ulcer, hepatitis, spinal stenosis, edema. 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 He drinks 4-5 cups of coffee daily. No alcohol. Current Meds Aspirin EC 81 MG Oral Tablet Delayed Release; Therapy: (Recorded:20Nov2015) to Recorded Centrum Silver Ultra Womens Oral Tablet; Therapy: (Recorded:20Nov2015) to Recorded Ferrous Fumarate 325 (106 Fe) MG TABS; Therapy: (Recorded:23Nov2015) to Recorded Fish Oil CAPS; Therapy: (Recorded:20Nov2015) to Recorded Folic Acid TABS; Therapy: (Recorded:20Nov2015) to Recorded Lipitor 80 MG Oral Tablet; Therapy: (Recorded:20Nov2015) to Recorded Lisinopril 20 MG Oral Tablet; Therapy: (Recorded:20Nov2015) to Recorded MetFORMIN HCl - 500 MG Oral Tablet; take 1 tablet by mouth twice a day; Therapy: (Recorded:20Nov2015) to Recorded PriLOSEC OTC 20 MG Oral Tablet Delayed Release; Therapy: (Recorded:20Nov2015) to Recorded Vitamin D3 5000 UNIT Oral Tablet; Therapy: (Recorded:20Nov2015) to Recorded Allergies Penicillins Results/Data All Results [Data Includes: Last 30 Days] 12Jan2016 03:43PM UA w/Microscopic, Rflx to Culture Collection Type: Urine Catheter Unspec. [URCTUP] Color: Brown Abnormal Reference Range Yellow Clarity: Cloudy Abnormal Reference Range Clear Spec [place]: 1.010 Reference Range 1.010 - 1.030 pH: 6 pH Reference Range 5-8 Leuk Esterase, Urine: 2+ Abnormal Reference Range Negative Nitrite: Negative Reference Range Negative Protein: 3+ Abnormal Reference Range Negative Glucose: Negative g/dL Reference Range Negative Ketones: Negative Reference Range Negative Urobilinogen: <1 mg/dL Reference Range <1 Bilirubin: Negative Reference Range Negative Blood: 2+ Abnormal Reference Range Negative Urine Microscopic Exam WBC, Urine: >50 #/hpf Abnormal Reference Range Negative RBC, Urine: >50 #/hpf Abnormal Reference Range Negative Bacteria, Urine: Many Abnormal Reference Range Negative Epithelials, Urine: Negative #/hpf Reference Range Negative Culture Status: Cultured per protocol 22Dec2015 10:30AM Culture, Urine [address] (Rflx) Report Status: Final 12/24/2015 Result: No growth or <1,000 CFU/mL Specimen Source: Urine, Rodarte catheter EKG sinus rhythm with left axis deviation 11/30/15. Tests Bladder scan residual was 157 cc on 11/23/15 Physical Exam Alert male in no distress. Lungs are clear to auscultation. Heart has regular rate without murmur. Clear speech and normal gait. Neck without mass. Abdomen soft and nontender without mass. No inguinal hernia. Circumcised penis without lesion. Normal testes and spermatic cor ds. Normal anal tone with 25 g smooth prostate. Signatures Electronically signed by : Lyndon Romero M.D.; Jan 12 2016 7:08PM PST (Author) documented in this enc ounter Miscellaneous Notes Op Note - Lyndon Romero MD - 01/29/2016 9:26 AM [facility] Pt. Name/Age/: Margarito Stark 75 y.o. 1940 [facility]. Record Number: [id number] Date of Operation/Procedure: 01/29/2016 Preoperative Diagnosis: Hydronephrosis with ureteral stricture [N13.1] Post-Op Diagnosis Codes: *Hydronephrosis with ureteral stricture [N13.1] Postoperative Diagnosis: Same Surgeon: Lyndon Romero MD Backer Up(s): None Anesthesia Provider(s): Anesthesiologist: Andrei Gonzalez MD Anesthesia Type: General Procedure(s): Cystoscopy, right ureteroscopy with right ureter stent removal Operative Indications: Margarito Stark is a 75 y.o. year old male with a history of low -grade bladder tumors since the mid . Under the previous care of Dr. Canchola, his right orifice obstructed following transurethral resection of bladder tumor in 2010. He require d right antegrade stent placement February 2013 with subsequent exchange of his double-J stent ev fox 3 months under general anaesthetic. Stent was most recently changed 09/11/15, and cytolo gy from that day was suspicious. I performed transurethral resection of polypoid erythema a round the right orifice (which was interpreted as inflammation) and open right ureteroneocys tostomy with stent placement 12/11/15. Cystoscopy with topical anesthetic 01/12/16 could no t advance a guidewire adjacent to the stent for retrograde pyelography. Operative Findings: Operation: The patient was identified as Margarito Stark and the procedure was confirme d as stated above. The patient was placed in the supine position. SCD devices were applied. Following the induction of adequate general anesthesia, legs are placed in lithotomy and th e genitalia prepped and draped in the usual sterile fashion. A 21 Faroese cystoscope was int roduced. Pendulous and bulbar urethra were normal. Lateral lobes were not quite coapted an d the posterior prostate appeared resected. The posterior bladder had hypovascular scar. M inimal edema persisted around the right orifice, which was now slightly laterally displaced following reimplantation. Right double-J stent was removed with rigid grasper. A 0.035 inc h diameter guidewire was easily threaded up the right ureter towards the renal pelvis. Flex ible ureteroscope readily advanced over the wire to the renal pelvis. Renal pelvis was lava ged of bloody urine. Shallow polypoid mucosa existed in the superior right renal pelvis but all calyces appeared normal through the ureteroscope. Renal pelvis urine was aspirated for cytology. Contrast injection through the ureteroscope noted mild blunting of all calyces. The ureteroscope was slowly withdrawn. Contrast injection in the proximal half of the urete r noted multiple areas of polypoid irregularity without occlusion of the lumen. Inferior saavedra lf of the right ureter appeared fairly normal and the right orifice was widely patent. Inst ruments were withdrawn. Estimated Blood Loss: none Transfused: no Drains: none Specimen (s): Right renal pelvis urine for cytology Complications: none Electronically Signed by: Lyndon Romero MD, 01/29/2016 9:[facility] Rosio Bolton Chaplain - 01/29/2016 8:07 AM PDTProblem: Spiritual Distress, Risk/Actual (A dult,Obstetrics,Pediatric) Goal: Spiritual Well-being Patient will demonstrate the desired outcomes by discharge/transition of care. Spiritual Care Margarito Stark is a 75 y.o. male who is admitted for Crossing vessel and stricture of u reter with hydronephrosis [N13.1]. Chaplains Rosio Saba and Abel Sen responded to request for Spiritual Care Consu lt. Spiritual Evaluation: Patient was in bed awaiting surgery with his Luz Marina at the bedside. The procedure is r elated to earlier bladder cancer. Patient has undergone this procedure before and was accept ing and ready for surgery with no anxiety apparent or expressed. Spiritual Interventions: Chaplains provided active listening and offered prayer and blessing. Spiritual Outcomes: Patient appreciated the visit. Spiritual Goals/Follow up: Follow-up will be as needed or requested. document ed in this encounter Plan of Treatment Not on filedocumented as of this encounter Procedures + +--------+ + + + | Procedure Name | Priori | Date/Time | Associated Diagnosis | Comments | | | ty | | | | + +--------+ + + + | FL PYELOGRAM | Routin | 01/29/2016 | | Results for this | | RETROGRADE | e | 9:33 AM | | procedure are in the | | | | PDT | | results section. | + +--------+ + + + | URETEROSCOPY STONE | | 01/29/2016 | Crossing vessel | | | BASKETING | | 8:23 AM | and stricture of | | | | | PDT | ureter with | | | | | | hydronephrosis | | + +--------+ + + + | POC GLUCOSE | Routin | 01/29/2016 | | Results for this | | | e | 7:52 AM | | procedure are in the | | | | PDT | | results section. | + +--------+ + + + | MEDICAL CYTOLOGY | Routin | 01/29/2016 | | Results for this | | | e | 12:00 AM | | procedure are in the | | | | PDT | | results section. | + +--------+ + + + documented in this encounter Results FL Pyelogram Retrograde (01/29/2016 9:33 AM PDT) + + | Specimen | + + | | + + + + + | Narrative | Performed At | + + + | No Radiologist interpretation, please see Chart Review. | [facility] | + + + + +---------+ + + | Performing | Address | City/State/Zipcode | Phone Number | | Organization | | | | + +---------+ + + | [facility] | | | | + +---------+ + + POC Glucose (01/29/2016 7:52 AM PDT) + +-------+ + + + | Component | Value | Ref Range | Performed | Pathologist | | | | | At | Signature | + +-------+ + + + | Glucose, | 127 | 70 - 150 mg/dL | [facility] | | | POC | | | [...] [address] | [place] | [phone] | | [facility] | | [address] | | | - LABORATORY | | | | + + + + + Medical Cytology (01/29/2016 12:00 AM PDT) + + | Specimen | + + | | + + + + + | Narrative | Performed At | + + + | ORDERING PHYSICIAN: Lyndon Romero MD PATIENT NAME: [facility] | | MARGARITO ZAMAN GENDER: Nuria : 1940 SPECIMEN(S): A | [facility] | | RENAL PELVIS/URETER WASHING GROSS DESCRIPTION: 45 ML CLOUDY | | | ORANGE FLUID CLINICAL HISTORY: NO CLINICAL DATA PROVIDED | | | LABORATORY PREPARATIONS: 1 MONOLAYER CYTOLOGIC INTERPRETATION: | | | Renal pelvis/ureter washing: Negative for malignant cells. Acute | | | inflammation. DESCRIPTION: The preparation contains numerous | | | transitional cells, often in clusters. Numerous acute inflammatory | | | cells are present. No malignant cells are identified. SPECIMEN | | | ADEQUACY: Satisfactory for Evaluation PERFORMING LABORATORY: | | | Professional interpretation was performed by [facility] Rust. | | | [facility] - [address] [place] [address] | | | (Entry Analyst: Lico Hernandez M.D.; IA#:[id number]).8 | | | Technical preparation was performed by Dash [id number] | | | [place] [address] and [facility] | | | [place] [address] [facility] [place] [address]. Diagnostician: | | | Dominique ALVARADO ([facility]) [employer] P[employer] Developer Diagnostician: Lico Gonzalez | | | David DE SANTIAGO Pathologist Electronically Signed 02/01/2016 | | + + + + +---------+ + + | Performing | Address | City/State/Zipcode | Phone Number | | Organization | | | | + +---------+ + + | [facility] | | | | | [facility] | | | | + +---------+ + + documented in this encounter Visit Diagnoses Not on filedocumented in this encounter Administered Medications + +--------+ +--------+------+------+ | Medication Order | MAR | Action | Dose | Rate | Site | | | Action | Date | | | | + +--------+ +--------+------+------+ | ciprofloxacin (CIPRO) tablet | Given | 01/29/20 | 500 mg | | | | 500 mg 500 mg, Oral, 60 MIN | | 16 8:01 | | | | | PRE-OP, Starting Mon01/29/16 at | | AM PDT | | | | | 0727, For 1 dose, Adjust | | | | | | | administration schedule to match | | | | | | | OR schedule., Pre-op, | | | | | | | Indications: Surgical Prophylaxis | | | | | | + +--------+ +--------+------+------+ +---+---+ | | | +---+---+ + +---------+ +---+-------+---+ | lactated ringers (LR) infusion | New Bag | 01/29/20 | | 100 | | | at 100 mL/hr, Intravenous, | | 16 8:01 | | mL/hr | | | CONTINUOUS, Starting Mon01/29/16 | | AM PDT | | | | | at 0745, Pre-op | | | | | | + +---------+ +---+-------+---+ +---+---+ | | | +---+---+ documented in this encounter
--- OUTSIDE RECORDS SUMMARY | ~2020-07-10 | XMS | Encounter Summary ---
Demographics + + + | Address | [address] | | | [place] [address] | + + + | Home Phone | | + + + | Preferred Language | Unknown | + + + | Marital Status | | + + + | Latter-Day Affiliation | Unknown | + + + | Race | White | + + + | Ethnic Group | Not or | + + + Author + + + | Author | [facility] | | | and [place] | + + + | Organization | [facility] | | | and [place] | + + + | Address | Unknown | + + + | Phone | Unavailable | + + + Support + + + + + | Name | Relationship | Address | Phone | + + + + + | Guera tSark | ECON | [address] | | | | | [place] | | | | | [address] | | + + + + + | Roselia Hayes | ECON | Unknown | | + + + + + Care Team Providers + +------+ + | Care Urgent Care Technician Name | Role | Phone | + +------+ + | Cesar Ojeda MD | PCP | | + +------+ + Reason for Visit + + + | Reason | Comments | + + + | Follow-up | | + + + Encounter Details +--------+---------+ + + + | Date | Type | Department | Care Team | Description | +--------+---------+ + + + | 01/26/ | Office | [facility] | Mi Mulligan, | Atherosclerosis of | | 2017 | Visit | CARDIOLOGY [address] | MD [address] | [place] coronary | | | | [place], | [place], [place] | artery of [place] | | | | [place] [address] | [address] | heart without angina | | | | [phone] | | pectoris (Primary | | | [...] + + + | Blood Pressure | 118/70 | 01/26/2017 9:44 AM | | | | | PDT | | + + + + + | Pulse | 70 | 01/26/2017 9:44 AM | | | | | PDT | | + + + + + | Temperature | - | - | | + + + + + | Respiratory Rate | 14 | 01/26/2017 9:44 AM | | | | | PDT | | + + + + + | Oxygen Saturation | - | - | | + + + + + | Inhaled Oxygen | - | - | | | Concentration | | | | + + + + + | Weight | 75.3 kg (166 lb) | 01/26/2017 9:44 AM | | | | | PDT | | + + + + + | Height | 170.2 cm (5' 7") | 01/26/2017 9:44 AM | | | | | PDT | | + + + + + | Body Mass Index | 26 | 01/26/2017 9:44 AM | | | | | PDT [...] documented as of this encounter Progress Notes Mi Mulligan MD - 01/26/2017 4:04 PM PDTFormatting of this note might be different fr om the original. PATIENT NAME: Lokesh Stark : 1940: AGE: 76 y.o. PRIMARY CARE: Cesar Ojeda MD OUTPATIENT FOLLOW UP VISIT Date of Service: 01/26/2017 HISTORY OF PRESENT ILLNESS: Lokesh Stark is a 76 y.o. male with a history of ASHD and recent stent thrombosis. H e is being seen today for follow up. He is doing very well. He has no chest pain and no dyspnea. No bleeding except for some minimal hematuria. Urology told him he would not need to follow up for 6 months. He is not having trouble with any of his medications MEDICAL, SURGICAL, AND PERSONAL HISTORY Past Medical, Surgical, Family, and Social History are reviewed in EPIC. CURRENT PROBLEMS Patient Active Problem List Diagnosis Malignant neoplasm of bladder Coronary atherosclerosis Diabetes type 2, controlled Benign essential hypertension NSTEMI (non-ST elevated myocardial infarction) S/P CABG x [address] elevation myocardial infarction (STEMI) of inferior wall, initial episode of care Status post insertion of drug eluting coronary artery stent CURRENT MEDICATIONS Current Outpatient Prescriptions Medication Sig Dispense Refill [...] tablet by mouth Daily. 90 tablet 2 ferrous sulfate 325 mg tablet Take 325 mg by mouth daily (with breakfast). fish oil 1,000 mg capsule Take 1,000 mg by mouth 2 times daily. folic acid (FOLVITE) 400 MCG tablet Take 400 mcg by mouth Daily. lisinopril (PRINIVIL, ZESTRIL) 20 mg tablet Take 20 mg by mouth Daily. metFORMIN (GLUCOPHAGE-XR) 500 mg 24 hr tablet Take 500 mg by mouth 2 times daily. Multiple Vitamins-Minerals (CENTRUM SILVER ULTRA MENS) TABS [...] went numb all over after an injection" ROS No change in weight No fever No fatigue No edema Complete 10 system review otherwise negative OBJECTIVE: PHYSICAL EXAM BP 118/70 mmHg | Pulse 70 | Resp 14 | Ht 1.702 m (5' 7") | Wt 75.297 kg (166 lb) | BMI 25.9 9 kg/m2 Constitutional: No acute distress, non-toxic appearance Eyes: conjunctiva normal. PERRL HEENT: Supple, normal ROM and without adenopathy. Oropharynx moist, no pharyngeal exudate s. Respiratory: No respiratory distress, normal breath sounds, no rales, no wheezing Cardiovascular: Normal rate, normal rhythm, no murmurs, no gallops, no rubs. GI: Soft, nondistended, normal bowel sounds, nontender, no organomegaly, no mass, no rebou nd, no guarding Musculoskeletal: No edema, no tenderness, no deformities. Back- no tenderness Integument: Well hydrated, no rashes or concerning skin lesions Neurologic: Alert & oriented x 3, no focal deficits noted Psychiatric: Speech and behavior appropriate ECG: I personally independently reviewed ECG tracing during this visit from LAB RESULTS reviewed during visit today primarily from [facility]: LIPID Lab Results Component Value Date CHOL 101* 07/03/2016 TRIG 134 07/03/2016 HDL 33 07/03/2016 LDL 41 07/03/2016 CHOLHDL 3.5 08/01/2016 LDLEX 47 08/01/2016 HDLEX 32.5* 08/01/2016 TRIGEX 166* 08/01/2016 CHOLEX 113 08/01/2016 CHEMISTRY Lab Results Component Value Date GLU 162* 01/26/2017 GLUEX 179* 08/01/2016 NA 141 01/26/2017 NAEX 139 08/01/2016 K 4.2 01/26/2017 KEX 3.7 08/01/2016 CL 112* 01/26/2017 CLEX 107 08/01/2016 CO2 19* 01/26/2017 CO2EX 21 08/01/2016 CALCIUM 9.5 01/26/2017 ALKPHOS 65 01/26/2017 AST 23 01/26/2017 ASTEX 23 08/01/2016 ALT 28 01/26/2017 ALTEX 38 08/01/2016 BILITOT 0.7 01/26/2017 CREA 1.24 01/26/2017 BUN 18 01/26/2017 EGFREX 76 08/01/2016 CREEX 0.97 08/01/2016 HEMATOLOGY Lab Results Component Value Date WBC 10.1 12/27/2016 HGB 14.3 01/26/2017 HCT 39.6* 12/27/2016 PLT 256 12/27/2016 ASSESSMENT: ASHD S/P CABG and LIU stent to the anastomosis of the RCA graft Bladder Cancer Diabetes with H/O nephropathy Dyslipidemia PLAN: Continue same meds Follow up in 6 months with my replacement Continue diet and exercise Call if any problems Electronically signed by: Mi Mulligan MD [facility] 01/26/2017 Portions of this chart may have been created with [employer] voice recognition software. Occasi onal wrong-word or sound-alike substitutions may have occurred due to the inherent hernandez itations of voice recognition software. Please read the chart carefully and recognize, using context, where these substitutions have occurred. documented in this encounter Plan of Treatment Not on filedocumented as of this encounter Results Hemoglobin (01/26/2017 10:12 AM PDT) + +-------+ + + + | Component | Value | Ref Range | Performed | Pathologist | | | | | At | Signature | + +-------+ + + + | Hemoglobin | 14.3 | 13.5 - 18.0 | [facility] | | | | | g/dL | [facility] | | | | [...] [address] | [place] | [phone] | | [facility] | | [address] | | | - LABORATORY | | | | + + + + + Comprehensive Metabolic Panel (01/26/2017 10:12 AM PDT) + + + + + [...] + + + + | Cl | 112 (H) | 98 - 109 mmol/L | [facility] | | | | | [facility] | | | | [facility] | | | | | | C[facility] - | | | | | | LABORATORY | | + + + + + + | CO2 | 19 (L) | 24 - 31 mmol/L | [...] + + + + | Glucose | 162 (H) | 70 - 109 mg/dL | [facility] | | | | | | [facility] | | | | | | [facility] | | | | | | CENTER - | | | | | | LABORATORY | | + + + + + + | BUN | 18 | 7 - 18 mg/dL | [facility] | | | | | | [facility] | | | | | | [facility] | | | | | | CENTER - | | | | | | LABORATORY | | + + + + + + | Creatinine | 1.24 | 0.60 - 1.30 | [facility] | | | | | mg/dL | [facility] | | | | | | MEDICAL | | | | | | CENTER - | | | | | | LABORATORY | | + + + + + + | eGFR, | 57 (L)Comment: | >=60 | [facility] | | | non- | GLOMERULAR FILTRATION | mL/min/1.73m2 | [facility] | | | [place] | RATE,ESTIMATED | | MEDICAL | | | | mL/min/1.69a4Xrgi than | | CENTER - | | [...] + + + + | Calcium | 9.5 | 8.3 - 10.5 | [facility] | | | | | mg/dL | [facility] | | | | | | MEDICAL | | | | | | CENTER - | | | | | | LABORATORY | | + + + + + + | Albumin | 4.0 | 3.2 - 5.0 g/dL | [facility] [...] + + + + | AST | 23 | 10 - 42 U/L | [facility] | | | | | | [facility] | | | | | | MEDICAL | | | | | | CENTER - | | | | | | LABORATORY | | + + + + + + | ALT | 28 | 6 - 45 U/L | [facility] | | | | | | [facility] | | | | | | MEDICAL | | | | | | CENTER - | | | | | | LABORATORY | | + + + + + + | Alkaline | 65 | 40 - 110 U/L | [facility] [...] + + + + | Albumin/Blanquita | 1.6 | 0.8 - 2.0 | [facility] | | | bulin Ratio | | | [facility] | | | | | | MEDICAL | | | | | | CENTER - | | | | | | LABORATORY | | + + + + + + | BUN/Creatin | 14.5 | | [facility] | | | ine [...] ST. | [address] | [place], [place] | [phone] | | [facility] | | [address] | | | - LABORATORY | | | | + + + + + documented in this encounter Visit Diagnoses + + | Diagnosis | + + | Atherosclerosis of [place] coronary artery of [place] heart without angina pectoris - | | Primary | + + documented in this encounter
--- OUTSIDE RECORDS SUMMARY | ~2020-07-10 | XMS | Encounter Summary ---
Demographics + + + | Address | [address] | | | [place] [address] | + + + | Home Phone | | + + + | Preferred Language | Unknown | + + + | Marital Status | | + + + | Adventism Affiliation | Unknown | + + + | Race | White | + + + | Ethnic Group | Not or | + + + Author + + + | Author | [facility] | | | and [place] | + + + | Organization | [facility] | | | and [...] [place] | | | | | [id number] | | + + + + + | Roselia Hayes | ECON | Unknown | | + + + + + Care Team Providers + +------+ + | Care Religious Studies Professor Name | Role | Phone | + [...] + + + | | | | | | | +--------+--------+ + + + + Encounter Details +--------+ + + + + | Date | Type | Department | Care Team | Description | +--------+ + + + + | 06/11/ | Hospital | [facility] | Franck Tsai MD | STEMI involving oth | | 2018 - | Encounter | [facility] ICU [address] | coronary artery of | | | | Melba Duplin, | [place], [place] | inferior wall (HCC) | | 06/13/ | | [place] [address] | [id number] | | | 2017 | | [phone] | | | +--------+ + + + [...] + + + | Blood Pressure | 107/59 | 06/13/2018 8:25 AM | | | | | PDT | | + + + + + | Pulse | 56 | 06/13/2018 8:25 AM | | | | | PDT | | + + + + + | Temperature | 36 C (96.8 F) | 06/13/2018 7:28 AM | | | | | PDT | | + + + + + | Respiratory Rate | 18 | 06/13/2018 4:19 AM | | | | | PDT | | + + + + + | Oxygen Saturation | 96% | 06/13/2018 8:25 AM | | | | | PDT | | + + + + + | Inhaled Oxygen | - | - | | | Concentration | | | | + + + + + | Weight | 74 kg (163 lb 2.3 | 06/13/2018 4:23 AM | | | | oz) | PDT | | + + + + + | Height | 170.2 cm (5' 7") | 06/11/2018 5:45 PM | | | | | PDT | | + + + + + | Body Mass Index | 25.55 | 06/11/2018 5:45 PM | | | | | PDT [...] documented as of this encounter Discharge Summaries Franck Tsai MD - 06/13/2018 10:32 AM PDT ECG changes; [facility] home (0 ve 1 year follow-up target versus signs 6.2% [place] HOSPITALIST DISCHARGE SUMMARY Pt. Name/Age/: Lokesh Stark 77 y.o. 1940 Date of Admission: 06/11/2018 Date of Discharge: 06/13/2018 Admitting Physician: Franck Tsai MD Primary Care Provider: Cesar Ojeda MD Discharging Physician: Franck Tsai MD DISCHARGE DIAGNOSES: There are no hospital problems to display for this patient. 1. Acute inferior ST elevation myocardial infarction 2. Coronary atherosclerosis, status post 4 vessel CABG 2003, status post bare-metal stent right posterior sending artery 2015, status post drug-eluting stent right posterior descendi ng artery 2016 3. Hypertension 4. Dyslipidemia 5. Type II diabetes mellitus DISCHARGE MEDICATIONS: Discharge Medications New Medications Details metoprolol succinate 50 mg 24 hr tablet Take 1 tablet by mouth Daily. aka: TOPROL-XL ticagrelor 90 mg tablet Take 1 tablet by mouth 2 times daily. aka: BRILINTA Unchanged Medications Details artificial tears ophthalmic solution Place 1 drop into both eyes every 4 hours as needed (dry eyes). aka: REFRESH TEARS aspirin 81 MG EC tablet Notes to patient: For heart Take 1 tablet by mouth Daily. atorvaSTATin 80 MG tablet Notes to patient: For cholesterol Take 80 mg by mouth nightly. aka: LIPITOR CENTRUM SILVER ULTRA MENS Tabs Take 1 tablet by mouth Daily. cetirizine 10 mg tablet Take 10 mg by mouth Daily. As needed. aka: zyrTEC cholecalciferol 2000 units Tabs Take 2,000 Units by mouth Daily. aka: VITAMIN D-3 ferrous sulfate 325 mg tablet Take 325 mg by mouth daily (with breakfast). fish oil 1,000 mg capsule Take 1,000 mg by mouth 2 times daily. folic acid 400 MCG tablet Take 400 mcg by mouth Daily. aka: FOLVITE lisinopril 20 mg tablet Notes to patient: For blood pressure Take 20 mg by mouth Daily. aka: PRINIVIL, ZESTRIL metFORMIN 500 mg 24 hr tablet Take 2,000 mg by mouth Daily. aka: GLUCOPHAGE-XR nitroglycerin 0.[address] 1 tablet under the tongue every 5 minutes as needed for Chest pain. aka: NITROSTAT omeprazole 20 mg capsule Notes to patient: For stomach acid Take 20 mg by mouth every morning (before breakfast). aka: priLOSEC ONE TOUCH ULTRA TEST strip Generic drug: glucose blood test strips ONETOUCH DELJAIME LANCETS FINE Misc vitamin C 1000 MG tablet Take 1,000 mg by mouth Daily. HOSPITAL COURSE: Please refer to the H&P for full details and the most recent rounding rounding (progress) n ote. In short 77-year-old gentleman with prior coronary bypass surgery and PCI of the right post erior sitting artery in 2015 and 2016 who had complained of ongoing bruising and stop clopid ogrel in March of this year. The patient presented with new onset of chest pain at rest and ECG evidence of acute inferior injury. Emergent diagnostic coronary arteriography revealed a thrombotic occlusion of the right posterior sending artery at the site of the 2 previously placed stents which were placed 1 inside the other. The patient had successful PTCA with r estoration of antegrade flow was given intravenous Integrilin and started on ticagrelor. Th e patient's troponin levels peaked at greater than 100. He had an uncomplicated postprocedu ral hospital course. Transthoracic echocardiography showed left ventricular ejection fracti on 45% with inferior wall motion abnormality which is a reduction in his ejection fraction f rom a prior echo. The patient was ambulating in the justin on the day of discharge and is oth erwise stable. Most recent weight: Input and output for last 24hrs: Wt Readings from Last 1 Encounters: 06/13/18 74 kg (163 lb 2.3 oz) I/O last 24 Hours: In: 1005 [P.O.:1005] Out: 125 [Urine:125] Vitals Ranges: Temp: [35.9 C (96.6 F)-37.1 C (98.8 F)] 36 C (96.8 F) Pulse: [52-58] 56 Resp: [18-20] 18 BP: (93-112)/(53-71) 107/59 Vitals: Temp: 36 C (96.8 F) BP: 107/59 Pulse: 56 Resp: 18 SpO2: 96 % SpO2 96 % on room air at flow rate 4L/min PHYSICAL EXAM: Patient seen and examined by me on discharge day . What pressure stable, chest clear, card iac examination regular rhythm no S3 PROCEDURES AND CONSULTS: Procedures coronary arteriography of [place] coronary arteries and bypass grafts, PTCA right posterior sending artery thrombotic occlusion Consults none PENDING RESULTS: None DISPOSITION AND DISCHARGE INSTRUCTIONS: Patient will follow-up in my clinic within 4 weeks Condition: Patient being discharged with condition improved. Diet:Whole food plant based, sodium restricted Less than 30 minutes were spent on discharge and coordination of post-hospital care. Electronically signed by: Franck Tsai MD, 06/13/2018 10:32 [facility] Portions of this chart may have been created with [employer] voice recognition software. Occasi onal wrong-word or sound-alike substitutions may have occurred due to the inherent hernandez itations of voice recognition software. Please read the chart carefully and recognize, using context, where these substitutions have occurred documented in this enc ounter Medications at Time of Discharge + + [...] tablet by | 30 | 0 | /06/11 | | | tablet | mouth Daily. [...] | 99 | 12/09/19 | | | LANCETS FINE MISC | | | | 17 [...] Take 1 tablet by | 30 | 11 | 06/14/20 | | | succinate | mouth Daily. | tablet | | 18 | 8 | | (TOPROL-XL) 50 mg 24 | | | | | [...] + + + +---------+ + + | ticagrelor | Take 1 tablet by | 60 | 11 | 06/13/20 | | | (BRILINTA) 90 mg | mouth 2 times daily. | tablet | | 18 | 8 | | tablet | | | | | | + + + +---------+ + + documented as of this encounter Progress Franck Loya MD - 06/12/2018 3:16 PM PDT PATIENT NAME: Lokesh Stark : 1940: AGE: 77 y.o. ADMISSION DATE: 06/11/2018 HOSPITAL DAY NUMBER: 1 PRIMARY CARE: Cesar Ojeda MD CARDIOLOGY PROGRESS NOTE Patient is alert without complaints of chest pain nor shortness of breath. Troponin levels this morning are greater than 100. Transthoracic echocardiogram shows severe inferior wall motion abnormality with an estimated left ventricular ejection fraction of 45% which is a r eduction from his prior normal ejection fraction in December 2016. MEDICATIONS: Current Facility-Administered Medications Medication Dose Route Frequency Provider Last Rate Last Dose acetaminophen (TYLENOL) tablet 650 mg 650 mg Oral Q6H PRN Franck Tsai MD 650 mg a t 06/12/18 0718 aspirin chewable tablet 81 mg 81 mg Oral Daily Franck Tsai MD 81 mg at 06/12/18 0 855 atorvaSTATin (LIPITOR) tablet 80 mg 80 mg Oral Nightly Franck Tsai MD 80 mg at 1827 lidocaine 1%-EPINEPHrine 1:100,000 injection 5 mL 5 mL Infiltration Once PRN Franck almodovar MD lisinopril (PRINIVIL, ZESTRIL) tablet 10 mg 10 mg Oral BID Franck Tsai MD 10 mg a t 06/12/18 0855 LORazepam (ATIVAN) 2 mg/mL injection 0.5 mg 0.5 mg Intravenous Q4H PRN Franck Tsai MD metoprolol tartrate (LOPRESSOR) tablet 25 mg 25 mg Oral BID Franck Tsai MD 25 mg at 06/12/18 0855 nitroglycerin (NITROSTAT) SL tablet 0.4 mg 0.4 mg Sublingual Q5 Min PRN Franck Tsai MD ondansetron (ZOFRAN) injection 4-8 mg 4-8 mg Intravenous Q6H PRN Franck Tsai MD oxyCODONE (ROXICODONE) tablet 5-10 mg 5-10 mg Oral Q4H PRN Franck Tsai MD ticagrelor (BRILINTA) tablet 90 mg 90 mg Oral BID Franck Tsai MD 90 mg at 8 0855 zolpidem (AMBIEN) tablet 5 mg 5 mg Oral Nightly PRN, MR x 1 Franck Tsai MD ALLERGIES Allergies Allergen Reactions Aspartame Hives and Nausea And Vomiting Cat Hair Extract Sensitivity Itching eye, runny nose Vegetable Oil Sensitivity Severe congestion Penicillins Other (See Comments) "I went numb all over after an injection" PHYSICAL EXAM Vital signs: Vitals: 06/12/18 1115 BP: 108/69 Pulse: 53 Resp: 19 Temp: 36.1 C (97 F) Admit Weight: Weight: 73.9 kg (162 lb 14.7 oz) Current weight: Weight: 74.8 kg (164 lb 14.5 oz) Body mass index is 25.83 kg/m. General: Alert resting comfortably Chest: Clear Cardiovascular: Nondisplaced apical impulse, regular rhythm, no S3 Gastrointestinal: Abdomen soft, non-tender, normal bowel sounds Extremities: No edema, right femoral artery puncture site soft without hematoma, no bruit Neuro: within normal LABS: Admission on 06/11/2018 Component Date Value Ref Range Status INTERPRETATION TEXT 06/11/2018 Not Confirmed Preliminary Troponin I 06/11/2018 71.48* <0.06 ng/mL Final Reference Ranges: 0.00-0.06 = NORMAL >0.06 = SUSPICIOUS FOR MYOCARDIAL DAMAGE NOTE: Values greater than 0.50 ng/mL have been shown to be strongly associated with acute m yocardial infarction. The [employer] (ACC) recommends a decision limit of 0.06 ng/mL for this assay. Results greater than 0.06 can reflect a pre-infarct acute coronary syndrome, but ca n also reflect myocardial necrosis or injury that is not due to coronary artery disease. So me of these causes are sepsis, hypocolemia, atrial fibrillation, heart failure, pulmonary em bolism, myocarditis, myocardial contusion, and renal failure. The diagnosis of myocardial i nfarction should be based on a combination of the patient's clinical presentation and the cl inical laboratory test results (especially serial troponin levels). Critical Result called to and read back by Leela Hong RN on 06/11/2018 at 19:22 by Reese Deluna. Troponin I 06/12/2018 >100.00* <0.06 ng/mL Final Reference Ranges: 0.00-0.06 = NORMAL >0.06 = SUSPICIOUS FOR MYOCARDIAL DAMAGE NOTE: Values greater than 0.50 ng/mL have been shown to be strongly associated with acute m yocardial infarction. The [employer] (ACC) recommends a decision limit of 0.06 ng/mL for this assay. Results greater than 0.06 can reflect a pre-infarct acute coronary syndrome, but ca n also reflect myocardial necrosis or injury that is not due to coronary artery disease. So me of these causes are sepsis, hypocolemia, atrial fibrillation, heart failure, pulmonary em bolism, myocarditis, myocardial contusion, and renal failure. The diagnosis of myocardial i nfarction should be based on a combination of the patient's clinical presentation and the cl inical laboratory test results (especially serial troponin levels). INTERPRETATION TEXT 06/11/2018 Not Confirmed Preliminary Culture 06/11/2018 Negative for MRSA by chromogenic agar method Final CK TOTAL 06/12/2018 2052* 22 - 269 U/L Final VENTRICULAR RATE EKG 06/12/2018 56 BPM Final ATRIAL RATE 06/12/2018 56 BPM Final P-R INTERVAL 06/12/2018 156 ms Final QRS DURATION 06/12/2018 92 ms Final Q-T INTERVAL 06/12/2018 490 ms Final Q-T INTERVAL (CORRECTED) 06/12/2018 472 ms Final P WAVE AXIS 06/12/2018 57 degrees Final QRS AXIS 06/12/2018 -63 degrees Final T AXIS 06/12/2018 -127 degrees Final INTERPRETATION TEXT 06/12/2018 Final Value:Sinus bradycardia with premature atrial complexes Left axis deviation Long QTc Left anterior fascicular block Lateral infarct (cited on or before 11-JUN-2018) T wave abnormality, consider lateral ischemia or evolution of recent ischemic event ST depression in leads V2-4 Inferior infarct (cited on or before 25-DEC-2016) Abnormal ECG When compared with ECG of 11-JUN-2018 17:55, (Unconfirmed) premature atrial complexes are now present Serial changes of Lateral infarct present ST less elevated in Inferior leads Confirmed by RAMÓN DOWD MD ([id number]) on 06/12/2018 6:07:13 AM Troponin I 06/12/2018 74.62* <0.06 ng/mL Final Reference Ranges: 0.00-0.06 = NORMAL >0.06 = SUSPICIOUS FOR MYOCARDIAL DAMAGE NOTE: Values greater than 0.50 ng/mL have been shown to be strongly associated with acute m yocardial infarction. The [employer] (ACC) recommends a decision limit of 0.06 ng/mL for this assay. Results greater than 0.06 can reflect a pre-infarct acute coronary syndrome, but ca n also reflect myocardial necrosis or injury that is not due to coronary artery disease. So me of these causes are sepsis, hypocolemia, atrial fibrillation, heart failure, pulmonary em bolism, myocarditis, myocardial contusion, and renal failure. The diagnosis of myocardial i nfarction should be based on a combination of the patient's clinical presentation and the cl inical laboratory test results (especially serial troponin levels). Consistent with previous results. Extra Lavender Top Tube 06/12/2018 Done Final LVEF-TTE TRANSTHORACIC ECHO 06/12/2018 45 % Final BASELINE BLOOD PRESSURE 06/12/2018 110/64 mmHg Final Patient Weight (lbs) 06/12/2018 164lbs Final Patient Height 06/12/2018 5'7 Final LVIDd 06/12/2018 5.46 cm Final LA volume 06/12/2018 67.94 mL Final Ascending aorta 06/12/2018 3.61 cm Final Aortic arch 06/12/2018 2.72 cm Final AV mean gradient 06/12/2018 4.66 mmHg Final Aortic Valve Area by Continuity VTI 06/12/2018 1.84 cm2 Final MV mean gradient 06/12/2018 55.32 mmHg Final MV Area by P 1/2 method 06/12/2018 3.85 cm2 Final IVRT 06/12/2018 107.74 msec Final LVOT diameter 06/12/2018 2.24 cm Final LVOT peak zen 06/12/2018 68.05 cm/s Final LVOT peak VTI 06/12/2018 13.22 cm Final AV peak zen 06/12/2018 1.53 cm/s Final AV VTI 06/12/2018 28.35 cm Final MR max zen 06/12/2018 447.33 cm/s Final AV peak gradient 06/12/2018 0 mmHg Final MV peak gradient 06/12/2018 3.9 mmHg Final MV VTI 06/12/2018 154.15 cm Final MV Pressure 1/2 time 06/12/2018 57.08 msec Final LA Volume Index 06/12/2018 36 mL/m2 Final AV LVOT Peak Gradient 06/12/2018 1.88 mmHg Final AV LVOT Mean Gradient 06/12/2018 0.72 mmHg Final TR Peak Gradient 06/12/2018 33 mmHg Final TR Velocity 06/12/2018 286.81 cm Final LV Diastolic Length 4C 06/12/2018 8.33 cm Final LV Systolic Area PSAX 06/12/2018 22.01 cm2 Final LV Michael's Biplane EF 06/12/2018 42 % Final AV Acceleration Time 06/12/2018 78.73 msec Final LV ED Volume (Michael's) 06/12/2018 116.07 ml Final LV ED Volume Index 06/12/2018 61 ml/m2 Final LV ES Volume 06/12/2018 68.62 ml Final LVOT Mean Velocity 06/12/2018 37.53 cm/s Final MV A' Lateral Velocity 06/12/2018 5.93 cm/s Final MV E' Lateral Velocity 06/12/2018 3.73 cm/s Final MV A' Septal Velocity 06/12/2018 5.7 cm/s Final MV E' Septal Velocity 06/12/2018 7.09 cm/s Final MV Deceleration [place] 06/12/2018 486.36 cm/s2 Final MV Deceleration Time 06/12/2018 203.05 msec Final MV E/A Ratio 06/12/2018 2.66 Final MV Peak A-Wave 06/12/2018 37.16 cm/s Final MV Peak E-Wave 06/12/2018 98.76 cm/s Final AV Mean Velocity 06/12/2018 103.65 cm/s Final LA/Aorta Ratio 06/12/2018 1.17 Final LA Area 06/12/2018 18.74 cm2 Final LA Systolic Pressure 06/12/2018 35.1 mmHg Final MR [place] Area 06/12/2018 0.23 cm2 Final MV E/E SEPTAL 06/12/2018 13.93 Final MV E/E LATERAL 06/12/2018 26.48 Final LA Major 06/12/2018 0.2835 cm Final LV ES Volume Index 06/12/2018 36 ml/m2 Final LV Area Diastolic 06/12/2018 30.49 cm2 Final Heart Rate 06/12/2018 56 Final Aortic Root Diameter 06/12/2018 3.76 cm Final IVS Diastolic Thickness MM 06/12/2018 1.37 cm Final LVPW Diastolic Thickness MM 06/12/2018 0.72 cm Final AV Cusp Seperation MM 06/12/2018 1.49 cm Final LA Systolic Diameter MM 06/12/2018 4.4 cm Final WBC 06/12/2018 14.3* 4.0 - 11.0 K/uL Final RBC 06/12/2018 4.93 4.30 - 5.70 M/uL Final Hgb 06/12/2018 14.8 13.5 - 18.0 g/dL Final Hct 06/12/2018 43.9 40.0 - 51.0 % Final MCV 06/12/2018 89.0 83.0 - 101.0 fL Final MCH 06/12/2018 30.1 28.0 - 35.0 pg Final MCHC 06/12/2018 33.8 32.0 - 36.0 g/dL Final RDW-CV 06/12/2018 14.7 <15.0 % Final Platelet Count 06/12/2018 274 140 - 440 K/uL Final MPV 06/12/2018 9.8 fL Final Activated Clotting Time, POC 06/11/2018 244* 125 - 175 second(s) Final Activated Clotting Time, POC 06/11/2018 >400* 125 - 175 second(s) Final Activated Clotting Time, POC 06/11/2018 271* 125 - 175 second(s) Final IMAGING: No results found. ECG 06/12/18: Sinus bradycardia 56 bpm, inferior Q waves, anterior ST segment depression, d iffuse inferior and anterior lateral T-wave inversion, when compared with ECG from yesterday at 17:55, inferior ST elevation has resolved. DIAGNOSES AND ASSESSMENTS: 1. Acute inferior ST elevation myocardial infarction, PTCA of right posterior descending ar kathleen thrombotic occlusion: The patient is clinical stable without recurrence of angina. His systolic function is mildly reduced and there is significant inferior wall motion abnormali ty. The patient will continue on dual antiplatelet therapy and definitely. PLAN OR RECOMMENDATIONS: Increase physical activity, transfer to medical telemetry bed Anticipate discharge home tomorrow if stable I appreciate the opportunity of participating in the care of this patient. Franck Tsai MD, 06/12/2018 15:16 olph, Sawyer Tanner [facility] - 06/12/2018 12:47 PM PDT PHARMACY SERVICES: ADMISSION MEDICATION REVIEW Lokesh Stark is a 77 y.o. male admitted on 06/11/2018. Patient is a reliable historian. Location of Patient when reviewed: ED X Medical Floor Patient s prior to admit medication and over the counter (OTC) medications/herbal supplem ents list obtained from: x Verbal interview x Patient ABLE to recall name, strength, and directions X Pharmacy list names: [facility] [place] X [place] [facility] (Prescription Monitoring Program) X [employer] insurance reported information X Care Everywhere Vaccines up to date? Yes No Unsure Influenza X Pneumococcal X Tdap X Shingles X Noted medications discrepancies or medication-related issues: Dosage change: Medication: Prior to Admission Sig: Correct sig: Patient taking differently as: Lisinopril 20mg 1 tab by mouth twice daily 1 tab by mouth daily Metformin 500 mg ER 1 tab by mouth twice daily 4 tabs by mouth daily 2 tabs by mouth twice daily Medication added: Medication: Prior to Admission Sig: Aspirin 81mg EC 1 tab by mouth daily Removed therapy: Medication: Prior to Admission Sig: Reason for Removal: Aspirin chewable 81mg 1 tab by mouth daily Incorrect- changed to correct form Best possible REJOINER medication list after pharmacy review: PT REPORTED TAKING NOT TAKING Medication Sig Last Dose Dispense Doc. Pacheco artificial tears (REFRESH PLUS) 0.5% SOLN Place 1 drop into both eyes every 4 hours as nee ded (dry eyes). Taking Yadi Pacheco MD Ascorbic Acid (VITAMIN C) 1000 MG tablet Take 1,000 mg by mouth Daily. Taking Yadi Pacheco MD aspirin 81 MG EC tablet Take 1 tablet by mouth Daily. Taking 30 tablet Lyndon Bear MD atorvaSTATin (LIPITOR) 80 MG tablet Take 80 mg by mouth nightly. Taking Yadi tillman MD cetirizine (ZYRTEC) 10 mg tablet Take 10 mg by mouth Daily. As needed. Taking Yadi Pacheco MD cholecalciferol (VITAMIN D-3) 2000 UNITS TABS Take 2,000 Units by mouth Daily. Taking His torical ProviderMD ferrous sulfate 325 mg tablet Take 325 mg by mouth daily (with breakfast). Taking Walkeri dorcas MD Junior fish oil 1,000 mg capsule Take 1,000 mg by mouth 2 times daily. Taking Yadi Condon rMD folic acid (FOLVITE) 400 MCG tablet Take 400 mcg by mouth Daily. Taking Yadi tillman MD lisinopril (PRINIVIL, ZESTRIL) 20 mg tablet Take 20 mg by mouth Daily. Taking Yadi Pacheco MD metFORMIN (GLUCOPHAGE-XR) 500 mg 24 hr tablet Take 2,000 mg by mouth Daily. Taking Differe ntly Yadi Pacheco MD Multiple Vitamins-Minerals (CENTRUM SILVER ULTRA MENS) TABS Take 1 tablet by mouth Daily. Taking Yadi Pacheco MD nitroglycerin (NITROSTAT) 0.[address] 1 tablet under the tongue every 5 minutes as needed for Chest pain. Taking 25 tablet Mi Dionicio Mulligan MD omeprazole (PRILOSEC) 20 mg capsule Take 20 mg by mouth every morning (before breakfast). Taking Yadi Pacheco MD ONE TOUCH ULTRA TEST strip Historical Provider, MD MANUEL RAIMREZ [facility] [place] Historical Provider, Medication review performed and electronically signed by Odilia Segovia [employer] 2017 12:19 Electronically signed by: Sawyer Hood RPH 06/12/2018 12:46 documented in this en counter H&P Notes Franck Tsai MD - 06/11/2018 5:28 PM PDT INPATIENT ADMISSION HISTORY AND PHYSICAL 06/11/2018 ADMISSION DIAGNOSES: 1. Acute inferior ST elevation myocardial infarction 2. Coronary atherosclerosis, status post 4 vessel CABG 2003, status post bare metal stent right posterior descending artery 2015, status post drug-eluting stent right posterior desce nding artery 2016 3. Hypertension 4. Dyslipidemia 5. Type II diabetes mellitus No current facility-administered medications on file prior to encounter. Current Outpatient Prescriptions on File Prior to Encounter Medication Sig Dispense Refill artificial tears (REFRESH [...] 99 ONETOUCH DELICA LANCETS FINE MISC 99 ALLERGIES: Allergies Allergen Reactions Aspartame Hives and Nausea And Vomiting Cat Hair Extract Sensitivity Itching eye, runny nose Vegetable Oil Sensitivity Severe congestion Penicillins Other (See Comments) "I went numb all over after an injection" HISTORY OF PRESENT ILLNESS Lokesh Stark is a 77 y.o. male who presents to [facility] in stable in on with new onset chest pain at rest and ECG evidence of acute inferior myocardial injury. The patient was treated with aspirin and heparin bolus and infusion and started on IV amioda deneen reportedly for runs of ventricular tachycardia. Upon arrival to our hospital his ECG s howed persistent acute inferior injury though his chest pain was now at 1/10 in severity. T he patient is being brought emergently to the cardiac catheterization laboratory for diagnos tic coronary arteriography and per case revascularization. The patient has a history of fou r-vessel coronary bypass surgery 2003 and underwent placement of a bare-metal stent in the r ight posterior sending artery at the anastomosis of the vein graft in 2015 and a drug-elutin g stent at the same site overlapping the previous stent in 2016. The patient had been on du al antiplatelet therapy but had stopped clopidogrel in March of this year as he was complaini ng of ongoing bruising. Past Medical History: Diagnosis Date Benign essential hypertension Coronary atherosclerosis Diabetes (HCC) Diabetes type 2, controlled (HCC) Dysuria Full dentures Hydronephrosis with ureteral stricture Malignant neoplasm of bladder (HCC) Malignant neoplasm of ureter (HCC) Urinary frequency Past Surgical History: Procedure Laterality Date APPENDECTOMY CARDIAC CATHERIZATION N/A 07/03/2016 Procedure: CV Cor Angio; Surgeon: Mi Mulligan MD; Location: [facility] CV LAB CARDIAC CATHERIZATION N/A 12/25/2016 Procedure: CV LHC; Surgeon: Mi Mulligan MD; Location: [facility] CV LAB CHOLECYSTECTOMY, LAPAROSCOPIC CORONARY ARTERY BYPASS GRAFT CYSTOSCOPY INSERTION/REMOVAL STENT/STONE Right February 2013, 09/11/2015 PROSTATECTOMY N/A 12/11/2015 Procedure: T.U.R.B.T., Retrograde Pyelogram, Reimplantation of Right Ureter Ureteroneocyst ostomy (Open Procedure); Surgeon: Lyndon Romero MD; Location: [facility] MAIN OR TONSILLECTOMY TURBT TURP N/A 12/02/2016 Procedure: Cyber Laser Prostate Vaporization, T.U.R. Bladder Tumor; Surgeon: Lyndon rosenthal MD; Location: [facility] MAIN OR UMBILICAL HERNIA REPAIR URETEROSCOPY Right 01/29/2016 Procedure: cystoscopy, right ureteroscopy with right ureter stent removal; Surgeon: Lyndon Romero MD; Location: [facility] MAIN OR Social History Social History Marital status: Spouse name: N/A Number of children: N/A Years of education: N/A Occupational History Not on file. Social History Main Topics Smoking status: Former Smoker Quit date: 10/23/1975 Smokeless tobacco: Never Used Alcohol use No Drug use: No Sexual activity: Not on file Other Topics Concern Not on file Social History Narrative No narrative on file Family History: There is no significant family history of premature coronary artery disease History Smoking Status Former Smoker Quit date: 10/23/1975 Smokeless Tobacco Never Used REVIEW OF SYSTEMS Body weight stable, no history of stroke or transient ischemic attack PHYSICAL EXAMINATION Vital signs: Vitals: 06/11/18 1541 Temp: 36.4 C (97.5 F) Admit Weight: Current weight: There is no height or weight on file to calculate BMI. General appearance: Patient in mild distress lying on stretcher Chest: Clear Cardiovascular: Nondisplaced apical impulse, regular rhythm, no S3 Abdomen: soft, non-tender, normal bowel sounds, no organomegaly nor masses. Mental Status/Neurological Grossly oriented. No obvious motor or cranial nerve deficits. Affect/Mood: appropriate. Extremities: No edema LABS: No visits with results within 2 Day(s) from this visit. Latest known visit with results is: Abstract on 03/29/2018 Component Date Value Ref Range Status VLDL Cholesterol Dorcas 11/01/2017 3.6* 4 - 40 Final IMAGING: No results found. ECG: From outside hospital showed sinus rhythm with acute inferior injury pattern ASSESSMENT 77-year-old gentleman with new onset chest pain at rest with ECG evidence of acute inferior injury. Patient is undergoing emergent diagnostic or arteriography with possible PCI. The risks and benefits of that explained the patient who states that he understands these risks and wishes to proceed. PLAN Emergent diagnostic coronary arteriography and possible PCI Franck Tsai MD 17:28 documented in this enc ounter ED Notes Palmira Wolfe RN - 06/11/2018 3:37 PM PDTPt [facility] ST[facility], pt re ported CP, SOB at [facility]. Pt denied pain upon arrival here. 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 Electronically si gned by Palmira Wolfe RN at 06/11/2018 3:39 PM PDTdocumented in this encounter Miscellaneous Notes Plan of [place] - Leela Hong RN - 06/13/2018 4:45 AM PDTPt has rested well, no CP o r SOB complaints, ambulates independantly in the room, steady on his feet, tolerates well. R groin site remains intact w/out bruise or hematoma. HR 70's, SR, other VSS.Electronically s igned by Leela Hong RN at 06/13/2018 4:47 AM PDTPlan of [place] - Rosio Soto RN - 06/12/2018 5:55 PM PDTProblem: Patient Care Overview (Adult) Goal: Care Team Goals & Evaluation PROBLEM-RELATED GOALS: STRATEGY TO ACHIEVE GOALS: RESTRAINT-RELATED GOALS: STRATEGIES TO ACHIEVE RESTRAINT GOALS: Outcome: Improving Goal Evaluation: Up ambulating in room and up in chair frequently. Ambulated in justin times 2. Tolerated wel l. Denies any chest discomfort. lan of Care - Cheryl Aranda RN - 06/12/2018 11:29 AM PDTCase Management Assessment: CM to patient room for initial assessment. Patient alert and oriented x 3 and sitting up in chair at side of bed. Patient's daughter Roselia ([phone]) present and supportive a t bedside. Demographics, PCP (Dr. Ojeda), and Pharmacy ([facility] in [place]) verified. Patient requesting to add his daughter Roselia to demographic information. CM updated in [facility]. Discharge Planning: Ivan is an independent 77 y.o. At baseline. He verbalizes that he does not own or util ize any DME at baseline and still drives. Patient lives at home in a single level home with his spouse Guera. He states that there are "a couple" of steps to get into the home that jose david brown is able to navigate without difficulty. Patient denies any questions, concerns, or needs regarding anticipated plan to return home when medically stable. Patient's Guera ([phone]) will provide transportatio n home and be able to assist in the home as needed after discharge. Disposition: Plan A: Home with family support, no anticipated needs. Electronically signed by: Cheryl Aranda RN 06/12/2018 11:36 lan of Leela Berrios RN - 06/12/2018 5:42 AM PDTPt has rested fairly well, no c/o of CP or SOB, m edicated x 1 for c/o mild headache, some relief achieved. R groin site remains intact, scant amt old drng, site is soft, no hematoma, strong palpable pulses in R foot. Electronically s igned by Leela Hong RN at 06/12/2018 5:44 AM PDTPlan of Rosio Abarca RN - 06/11/2018 6:59 PM PDTProblem: Patient Care Overview (Adult) Goal: Care Team Goals & Evaluation PROBLEM-RELATED GOALS: STRATEGY TO ACHIEVE GOALS: RESTRAINT-RELATED GOALS: STRATEGIES TO ACHIEVE RESTRAINT GOALS: Outcome: Improving Goal Evaluation: Received to ICU at 1735. Denies any chest discomfort, nausea. VSS. Angioseal dressing inta ct right groin. Small pea sized spot of bloody drainage unchanged. CMS, 2+ pedal pulses, no swelling or hematoma formation right groin. 15 minute checks done per protocol. documented in this enc ounter Plan of Treatment Not on filedocumented as of this encounter Procedures + +--------+ + + + | Procedure Name | Priori | Date/Time | Associated Diagnosis | Comments | | | ty | | | | + +--------+ + + + | EXTRA LAVENDER TOP | Routin | 06/13/2018 | | Results for this | | TUBE | e | 1:33 AM | | procedure are in the | | | | PDT | | results section. | + +--------+ + + + | TROPONIN I | Routin | 06/13/2018 | | Results for this | | | e | 1:25 AM | | procedure are in the | | | | PDT | | results section. | + +--------+ + + + | TROPONIN I | Routin | 06/12/2018 | | Results for this | | | e | 5:49 PM | | procedure are in the | | | | PDT | | results section. | + +--------+ + + + | ECHO COMPLETE | Routin | 06/12/2018 | | Results for this | | | e | 10:28 AM | | procedure are in the | | | | PDT | | results section. | + +--------+ + + + | TROPONIN I | Routin | 06/12/2018 | | Results for this | | | e | 9:00 AM | | procedure are in the | | | | PDT | | results section. | + +--------+ + + + | CBC NO DIFFERENTIAL | Routin | 06/12/2018 | | Results for this | | | e | 9:00 AM | | procedure are in the | | | | PDT | | results section. | + +--------+ + + + | BASIC METABOLIC | Routin | 06/12/2018 | | Results for this | | PANEL | e | 9:00 AM | | procedure are in the | | | | PDT | | results section. | + +--------+ + + + | ECG 12 LEAD | Routin | 06/12/2018 | | Results for this | | | e | 5:08 AM | | procedure are in the | | | | PDT | | results section. | + +--------+ + + + | EXTRA LAVENDER TOP | Routin | 06/12/2018 | | Results for this | | TUBE | e | 1:26 AM | | procedure are in the | | | | PDT | | results section. | + +--------+ + + + | TROPONIN I | Routin | 06/12/2018 | | Results for this | | | e | 1:22 AM | | procedure are in the | | | | PDT | | results section. | + +--------+ + + + | CK TOTAL | Routin | 06/12/2018 | | Results for this | | | e | 1:22 AM | | procedure are in the | | | | PDT | | results section. | + +--------+ + + + | RAAD, KELSEY | Routin | 06/11/2018 | | Results for this | | | e | 6:20 PM | | procedure are in the | | | | PDT | | results section. | + +--------+ + + + | TROPONIN I | Routin | 06/11/2018 | | Results for this | | | e | 6:19 PM | | procedure are in the | | | | PDT | | results section. | + +--------+ + + + | ECG 12 LEAD | Routin | 06/11/2018 | | Results for this | | | e | 5:55 PM | | procedure are in the | | | | PDT | | results section. | + +--------+ + + + | POC ACTIVATED | Routin | 06/11/2018 | | Results for this | | CLOTTING TIME ISTAT | e | 5:02 PM | | procedure are in the | | | | PDT | | results section. | + +--------+ + + + | POC ACTIVATED | Routin | 06/11/2018 | | Results for this | | CLOTTING TIME ISTAT | e | 4:43 PM | | procedure are in the | | | | PDT | | results section. | + +--------+ + + + | POC ACTIVATED | Routin | 06/11/2018 | | Results for this | | CLOTTING TIME ISTAT | e | 3:59 PM | | procedure are in the | | | | PDT | | results section. | + +--------+ + + + | ECG 12 LEAD | STAT | 06/11/2018 | | Results for this | | | | 3:33 PM | | procedure are in the | | | | PDT | | results section. | + +--------+ + + + | LABS - EXTERNAL SCAN | | 06/11/2018 | | Results for this | | | | 12:00 AM | | procedure are in the | | | | PDT | | results section. | + +--------+ + + + | ECG - EXTERNAL SCAN | | 06/11/2018 | | Results for this | | | | 12:00 AM | | procedure are in the | | | | PDT | | results section. | + +--------+ + + + documented in this encounter Results Extra Lavender Top Tube (06/13/2018 1:33 AM PDT) + +-------+ + + + [...] [address] | [place] | [phone] | | [facility] | | [address] | | | - LABORATORY | | | | + + + + + Troponin I (06/13/2018 1:25 AM PDT) + + + + + + | Component | Value | Ref Range | Performed | Pathologist | | | | | At | Signature | + + + + + + | Troponin I | 48.73 ()Comment: | <0.06 ng/mL | [facility] | [...] | | | | | results. [employer] | | | | | | [employer] [...] + | [facility] | [address] | [place] | [phone] | | [facility] | | [address] | | | - LABORATORY | | | | + + + + + Troponin I (06/12/2018 5:49 PM PDT) + + + + + + | Component | Value | Ref Range | Performed | Pathologist | | | | | At | Signature | + + + + + + | Troponin I | 53.99 ()Comment: | <0.06 ng/mL | [facility] | | | | Consistent with Previous | | [facility] | | | | Results Reference | | MEDICAL | | | | Ranges:0.00-0.06 = | | CENTER - | | | | NORMAL>0.06 = | | LABORATORY | | | | SUSPICIOUS FOR | [...] | | | | | | [employer] | | | | | [...] + | [facility] | [address] | [place] | [phone] | | [facility] | | [address] | | | - LABORATORY | | | | + + + + + ECHO Complete (06/12/2018 10:28 AM PDT) + +--------+ + + + | Component | Value | Ref Range | Performed | Pathologist | | | | | At | Signature | + +--------+ + + + | LVEF-TTE | 45 | % | [facility] | | | TRANSTHORAC | | | | | | IC ECHO | | | | | + +--------+ + + + | BASELINE | 110/64 | mmHg | [facility] | | | BLOOD | | | | | | PRESSURE | | | | | + +--------+ + + + | Patient | 164lbs | | [facility] | | | Weight | | | | | | (lbs) | | | | | + +--------+ + + + | Patient | 5'7 | | [facility] | | | Height | | | | | + +--------+ + + + | LVIDd | 5.46 | cm | [facility] | | + +--------+ + + + | LA volume | 67.94 | mL | [facility] | | + +--------+ + + + | Ascending | 3.61 | cm | [facility] | | | aorta | | | | | + +--------+ + + + | Aortic arch | 2.72 | cm | [facility] | | + +--------+ + + + | AV mean | 4.66 | mmHg | [facility] | | | gradient | | | | | + +--------+ + + + | Aortic | 1.84 | cm2 | [facility] | | | Valve Area | | | | | | by | | | | | | Continuity | | | | | | VTI | | | | | + +--------+ + + + | MV mean | 55.32 | mmHg | [facility] | | | gradient | | | | | + +--------+ + + + | MV Area by | 3.85 | cm2 | [facility] | | | P 1/2 | | | | | | method | | | | | + +--------+ + + + | IVRT | 107.74 | msec | [facility] | | + +--------+ + + + | LVOT | 2.24 | cm | [facility] | | | diameter | | | | | + +--------+ + + + | LVOT peak | 68.05 | cm/s | [facility] | | | zen | | | | | + +--------+ + + + | LVOT peak | 13.22 | cm | [facility] | | | VTI | | | | | + +--------+ + + + | AV peak zen | 1.53 | cm/s | [facility] | | + +--------+ + + + | AV VTI | 28.35 | cm | [facility] | | + +--------+ + + + | MR max zen | 447.33 | cm/s | [facility] | | + +--------+ + + + | AV peak | 0 | mmHg | [facility] | | | gradient | | | | | + +--------+ + + + | MV peak | 3.9 | mmHg | [facility] | | | gradient | | | | | + +--------+ + + + | MV VTI | 154.15 | cm | [facility] | | + +--------+ + + + | MV Pressure | 57.08 | msec | [facility] | | | 1/2 time | | | | | + +--------+ + + + | LA Volume | 36 | mL/m2 | [facility] | | | Index | | | | | + +--------+ + + + | AV LVOT | 1.88 | mmHg | [facility] | | | Peak | | | | | | Gradient | | | | | + +--------+ + + + | AV LVOT | 0.72 | mmHg | [facility] | | | Mean | | | | | | Gradient | | | | | + +--------+ + + + | TR Peak | 33 | mmHg | [facility] | | | Gradient | | | | | + +--------+ + + + | TR Velocity | 286.81 | cm | [facility] | | + +--------+ + + + | LV | 8.33 | cm | [facility] | | | Diastolic | | | | | | Length 4C | | | | | + +--------+ + + + | LV Systolic | 22.01 | cm2 | [facility] | | | Area PSAX | | | | | + +--------+ + + + | LV | 42 | % | [facility] | | | Michael's | | | | | | Biplane EF | | | | | + +--------+ + + + | AV | 78.73 | msec | [facility] | | | Acceleratio | | | | | | n Time | | | | | + +--------+ + + + | LV ED | 116.07 | ml | [facility] | | | Volume | | | | | | (Michael's) | | | | | + +--------+ + + + | LV ED | 61 | ml/m2 | [facility] | | | Volume | | | | | | Index | | | | | + +--------+ + + + | LV ES | 68.62 | ml | [facility] | | | Volume | | | | | + +--------+ + + + | LVOT Mean | 37.53 | cm/s | [facility] | | | Velocity | | | | | + +--------+ + + + | MV A' | 5.93 | cm/s | [facility] | | | Lateral | | | | | | Velocity | | | | | + +--------+ + + + | MV E' | 3.73 | cm/s | [facility] | | | Lateral | | | | | | Velocity | | | | | + +--------+ + + + | MV A' | 5.7 | cm/s | [facility] | | | Septal | | | | | | Velocity | | | | | + +--------+ + + + | MV E' | 7.09 | cm/s | [facility] | | | Septal | | | | | | Velocity | | | | | + +--------+ + + + | MV | 486.36 | cm/s2 | [facility] | | | Deceleratio | | | | | | n [place] | | | | | + +--------+ + + + | MV | 203.05 | msec | [facility] | | | Deceleratio | | | | | | n Time | | | | | + +--------+ + + + | MV E/A | 2.66 | | [facility] | | | Ratio | | | | | + +--------+ + + + | MV Peak | 37.16 | cm/s | [facility] | | | A-Wave | | | | | + +--------+ + + + | MV Peak | 98.76 | cm/s | [facility] | | | E-Wave | | | | | + +--------+ + + + | AV Mean | 103.65 | cm/s | [facility] | | | Velocity | | | | | + +--------+ + + + | LA/Aorta | 1.17 | | [facility] | | | Ratio | | | | | + +--------+ + + + | LA Area | 18.74 | cm2 | [facility] | | + +--------+ + + + | LA Systolic | 35.1 | mmHg | [facility] | | | Pressure | | | | | + +--------+ + + + | MR Pisa | 0.23 | cm2 | [facility] | | | Area | | | | | + +--------+ + + + | MV E/E | 13.93 | | [facility] | | | SEPTAL | | | | | + +--------+ + + + | MV E/E | 26.48 | | [facility] | | | LATERAL | | | | | + +--------+ + + + | LA Major | 0.2835 | cm | [facility] | | + +--------+ + + + | LV ES | 36 | ml/m2 | [facility] | | | Volume | | | | | | Index | | | | | + +--------+ + + + | LV Area | 30.49 | cm2 | [facility] | | | Diastolic | | | | | + +--------+ + + + | Heart Rate | 56 | | [facility] | | + +--------+ + + + | Aortic Root | 3.76 | cm | [facility] | | | Diameter | | | | | + +--------+ + + + | IVS | 1.37 | cm | [facility] | | | Diastolic | | | | | | Thickness | | | | | | MM | | | | | + +--------+ + + + | LVPW | 0.72 | cm | [facility] | | | Diastolic | | | | | | Thickness | | | | | | MM | | | | | + +--------+ + + + | AV Cusp | 1.49 | cm | [facility] | | | Seperation | | | | | | MM | | | | | + +--------+ + + + | LA Systolic | 4.4 | cm | [facility] | | | Diameter | | | | | | MM | | | | | + +--------+ + + + + + | Specimen | + + | | + + + + + | Narrative | Performed At | + + + | 1. | [facility] | | Borderline increased left ventricular chamber diameter with normal | | | wall thickness 2. Mild left ventricular systolic dysfunction with | | | regional wall motion abnormality 3. Moderate mitral valve | | | regurgitation 4. Mild pulmonary arterial hypertension 5. 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 Moderate left atrial chamber enlargement 7. | | | When compared with prior echocardiogram of 12/27/16, left ventricular | | | systolic function is reduced, and the inferior wall motion | | | abnormalities are new | | |systolic function is reduced, and the inferior wall motion abnormalities | | |are new | | | | | + + + + +---------+ + + | Performing | Address | City/State/Zipcode | Phone Number | | Organization | | | | + +---------+ + + | [facility] | | | | + +---------+ + + Basic Metabolic Panel (06/12/2018 9:00 AM PDT) + + + + + + | Component | Value | Ref Range | Performed | Pathologist | | | | | At | Signature | + + + + + + | Na | 138 | 136 - 149 | [facility] | [...] + + + + | CO2 | 20 (L) | 24 - 31 mmol/L | [...] + + + + | Glucose | 209 (H) | 70 - 109 mg/dL | [facility] | | | | | [facility] | | | | | | MEDICAL | | | | | | C[facility] - | | | | | | LABORATORY | | + + + + + + | BUN | 18 | 7 - 18 mg/dL | [facility] | | | | | | [facility] | | | | | | MEDICAL | | | | | | CENTER - | | | | | | LABORATORY | | + + + + + + | Creatinine | 1.67 (H) | 0.60 - 1.30 | [facility] | | | | | mg/dL | [facility] | | | | | | MEDICAL | | | | | | CENTER - | | | | | | LABORATORY | | + + + + + + | eGFR, | 40 (L)Comment: | >=60 | [facility] | | | non- | GLOMERULAR FILTRATION | mL/min/1.73m2 | [facility] | | | [place] | RATE,ESTIMATED | | MEDICAL | | | | mL/min/1.87j6Qova than | | CENTER - | | [...] + + + + | BUN/Creatin | 10.8 | | [facility] | | | ine [...] + | [facility] | [address] | [place] | [phone] | | [facility] | | [address] | | | - LABORATORY | | | | + + + + + CBC no Differential (06/12/2018 9:00 AM PDT) + + + + + + | Component | Value | Ref Range | Performed | Pathologist | | | | | At | Signature | + + + + + + | White Blood | 14.3 (H) | 4.0 - 11.0 K/uL | [facility] | | | Cells | | | [facility] | | | | | | MEDICAL | | | | | | CENTER - | | | | | | LABORATORY | | + + + + + + | Red Blood | 4.93 | 4.30 - 5.70 | [facility] | | | Cells | | M/uL | [facility] | | | | | | MEDICAL | | | | | | CENTER - | | | | | | LABORATORY | | + + + + + + | Hemoglobin | 14.8 | 13.5 - 18.0 | [facility] | | | | | g/dL | [facility] | | | | | | MEDICAL | | | | | | CENTER - | | | | | | LABORATORY | | + + + + + + | Hematocrit | 43.9 | 40.0 - 51.0 % | [facility] | | | | | | [facility] | | | | | | [facility] | | | | | | CENTER - | | | | | | LABORATORY | | + + + + + + | MCV | 89.0 | 83.0 - 101.0 fL | [facility] | | | | | | [facility] | | | | | | [facility] | | | | | | CENTER - | | | | | | LABORATORY | | + + + + + + | MCH | 30.1 | 28.0 - 35.0 pg | [facility] | | | | | | [facility] | | | | | | MEDICAL | | | | | | CENTER - | | | | | | LABORATORY | | + + + + + + | MCHC | 33.8 | 32.0 - 36.0 | [facility] | | | | | g/dL | [facility] | | | | | | MEDICAL | | | | | | CENTER - | | | | | | LABORATORY | | + + + + + + | RDW-CV | 14.7 | <15.0 % | [facility] | | | | | | [facility] | | | | | | MEDICAL | | | | | | CENTER - | | | | | | LABORATORY | | + + + + + + | Platelet | 274 | 140 - 440 K/uL | [facility] | | | Count | | | [facility] | | | | | | MEDICAL | | | | | | CENTER - | | | | | | LABORATORY | | + + + + + + | MPV | 9.8 | fL | [facility] | | | | | [...] [address] | [place] | [phone] | | [facility] | | [address] | | | - LABORATORY | | | | + + + + + Troponin I (06/12/2018 9:00 AM PDT) + + + + + + | Component | Value | Ref Range | Performed | Pathologist | | | | | At | Signature | + + + + + + | Troponin I | 74.62 ()Comment: | <0.06 ng/mL | [facility] | [...] | | | | | | [employer] | | | | | [...] | troponin levels). | | | | | | Consistent with previous | | | | | | results. | | | | + + + + + + + + | Specimen | + + | Blood | + + + + + + + | Performing | Address | City/State/Zipcode | Phone Number | | Organization | | | | + + + + + | [facility] | [address] | [place] | [phone] | | [facility] | | [address] | | | - LABORATORY | | | | + + + + + ECG 12 lead (06/12/2018 5:08 AM PDT) + + + + + + | Component | Value | Ref Range | Performed | Pathologist | | | | | At | Signature | + + + + + + | VENTRICULAR | 56 | BPM | [facility] | | | RATE EKG | | | | | + + + + + + | ATRIAL RATE | 56 | BPM | [facility] | | + + + + + + | P-R | 156 | ms | [facility] | | | INTERVAL | | | | | + + + + + + | QRS | 92 | ms | [facility] | | | DURATION | | | | | + + + + + + | Q-T | 490 | ms | [facility] | | | INTERVAL | | | | | + + + + + + | Q-T | 472 | ms | [facility] | | | INTERVAL | | | | | | (CORRECTED) | | | | | + + + + + + | P WAVE AXIS | 57 | degrees | [facility] | | + + + + + + | QRS AXIS | -63 | degrees | [facility] | | + + + + + + | T AXIS | -127 | degrees | [facility] | | + + + + + + | INTERPRETAT | Sinus bradycardia with | | [facility] | | | ION TEXT | premature atrial | | | | | | complexesLeft axis | | | | | | deviationLong QTcLeft | | | | | | anterior fascicular | | | | | | blockLateral infarct | | | | | | (cited on or before | | | | | | 11-JUN-2018)T wave | | | | | | abnormality, consider | | | | | | lateral ischemia or | | | | | | evolution of recent | | | | | | ischemic eventST | | | | | | depression in leads | | | | | | V2-4Inferior infarct | | | | | | (cited on or before | | | | | | 25-DEC-2016)Abnormal | | | | | | ECGWhen compared with | | | | | | ECG of 11-JUN-2018 | | | | | | 17:55, | | | | | | (Unconfirmed)premature | | | | | | atrial complexes are now | | | | | | presentSerial changes | | | | | | of Lateral infarct | | | | | | presentST less elevated | | | | | | in Inferior leads | | | | | | Confirmed by NOEMÍ DE SANTIAGO, | | | | | | RAMÓN ([id number]) on | | | | | | 06/12/2018 6:07:13 AM | | | | + + [...] +---------+ + + Extra Lavender Top Tube (06/12/2018 1:26 AM PDT) + +-------+ + + + [...] + | [facility] | [address] | [place] | [phone] | | [facility] | | [address] | | | - LABORATORY | | | | + + + + + Troponin I (06/12/2018 1:22 AM PDT) + + + + + + | Component | Value | Ref Range | Performed | Pathologist | | | | | At | Signature | + + + + + + | Troponin I | >100.00 ()Comment: | <0.06 ng/mL | [facility] | | | | Reference | | [...] | | | | | | [employer] | | | | | [...] [address] | [place] | [phone] | | [facility] | | [address] | | | - LABORATORY | | | | + + + + + CK Total (06/12/2018 1:22 AM PDT) + + + + + + | Component | Value | Ref Range | Performed | Pathologist | | | | | At | Signature | + + + + + + | CK TOTAL | 2,052 (H) | 22 - 269 U/L | [facility] | | | | | | [facility] [...] [address] | [place] | [phone] | | [facility] | | [address] | | | - LABORATORY | | | | + + + + + Culture, MRSA (06/11/2018 6:20 PM PDT) + + + + + [...] + | Specimen | + + | Tissue - Both | | anterior nares (body | | structure) | + + + + + + + | Performing | Address | City/State/Zipcode | Phone Number | | Organization | | | | + + + + + | [facility] | [address] | [place] | [phone] | | [facility] | | [address] | | | - LABORATORY | | | | + + + + + Troponin I (06/11/2018 6:19 PM PDT) + + + + + + | Component | Value | Ref Range | Performed | Pathologist | | | | | At | Signature | + + + + + + | Troponin I | 71.48 ()Comment: | <0.06 ng/mL | [facility] | [...] | | | | | | [employer] | | | | | [...] | troponin levels). | | | | | | Critical Result called | | | | | | to and read back by | | | | | | Leela Hong RN | | | | | | on 06/11/2018 at 19:22 | | | | | | by Reese Deluna. | | | | + + + + + + + + | Specimen | + + | Blood | + + + + + + + | Performing | Address | City/State/Zipcode | Phone Number | | Organization | | | | + + + + + | [facility] | [address] | [place] | [phone] | | [facility] | | [address] | | | - LABORATORY | | | | + + + + + ECG 12 lead (06/11/2018 5:55 PM PDT) + + + + + + | Component | Value | Ref Range | Performed | Pathologist | | | | | At | Signature | + + + + + + | VENTRICULAR | 74 | BPM | [facility] | | | RATE EKG | | | | | + + + + + + | ATRIAL RATE | 74 | BPM | [facility] | | + + + + + + | P-R | 204 | ms | [facility] | | [...] + + + + | Q-T | 472 | ms | [facility] | | | INTERVAL | | | | | | (CORRECTED) | | | | | + + + + + + | P WAVE AXIS | 62 | degrees | [facility] | | + + + + + + | QRS AXIS | -68 | degrees | [facility] | | + + + + + + | T AXIS | 126 | degrees | [facility] | | + + + + + + | INTERPRETAT | Normal sinus rhythm with | | [facility] | | | ION TEXT | 1st degree AV blockLong | | | | | | QTcLeft axis | | | | | | deviationLeft anterior | | | | | | fascicular blockPossible | | | | | | Lateral infarct (cited | | | | | | on or before | | | | | | 29-MAR-2018)Inferior | | | | | | infarct (cited on or | | | | | | before 25-DEC-2016)ST | | | | | | elevation, consider | | | | | | inferior injury or acute | | | | | | infarct or evolving | | | | | | Inferior myocardial | | | | | | infarctionAbnormal | | | | | | ECGWhen compared with | | | | | | ECG of 11-JUN-2018 | | | | | | 15:33, (Unconfirmed)ST | | | | | | less elevated in | | | | | | Inferior leadsT wave | | | | | | inversion now evident in | | | | | | Inferior leadsQT has | | | | | | lengthenedConfirmed by | | | | | | RAMÓN DOWD MD ([id number]) | | | | | | on 06/15/2018 6:25:50 AM | | | | + + [...] | | + +---------+ + + POC ACT (06/11/2018 5:02 PM PDT) + +---------+ + + + | Component | Value | Ref Range | Performed | Pathologist | | | | | At | Signature | + +---------+ + + + | Activated | 271 (H) | 125 - 175 | [facility] | | | Clotting | | second(s) | [facility] | | | Time, POC | | | MEDICAL | | | [...] [address] | [place] | [phone] | | [facility] | | [address] | | | - LABORATORY | | | | + + + + + POC ACT (06/11/2018 4:43 PM PDT) + + + + + + | Component | Value | Ref Range | Performed | Pathologist | | | | | At | Signature | + + + + + + | Activated | >400 (HH) | 125 - 175 | [facility] | | | Clotting | | second(s) | [facility] | | | Time, POC | | | MEDICAL | | | [...] [address] | [place] | [phone] | | [facility] | | [address] | | | - LABORATORY | | | | + + + + + POC ACT (06/11/2018 3:59 PM PDT) + +---------+ + + + | Component | Value | Ref Range | Performed | Pathologist | | | | | At | Signature | + +---------+ + + + | Activated | 244 (H) | 125 - 175 | [facility] | | | Clotting | | second(s) | [facility] | | | Time, POC | | | MEDICAL | | | [...] + | [facility] | [address] | [place] | [phone] | | [facility] | | [address] | | | - LABORATORY | | | | + + + + + ECG 12 lead (06/11/2018 3:33 PM PDT) + + + + + [...] + + + + | QRS | 92 | ms | [facility] | | | DURATION | | | | | + + + + + + | Q-T | 424 | ms | [facility] | | | INTERVAL | | | | | + + + + + + | Q-T | 405 | ms | [facility] | | | INTERVAL | | | | | | (CORRECTED) | | | | | + + + + + + | P WAVE AXIS | 52 | degrees | [facility] | | + + + + + + | QRS AXIS | -39 | degrees | [facility] | | + + + + + + | T AXIS | 105 | degrees | [facility] | | + + + + + + | INTERPRETAT | Sinus bradycardiaLeft | | [facility] | | | ION TEXT | axis deviationPossible | | | | | | Lateral infarct , | | | | | | newInferior infarct | | | | | | (cited on or before | | | | | | 25-DEC-2016) ACUTE | | | | | | PA / STEMI Consider | | | | | | right ventricular | | | | | | involvement in acute | | | | | | inferior infarctAbnormal | | | | | | ECGWhen compared with | | | | | | ECG of 29-MAR-2018 | | | | | | 09:40,Significant | | | | | | changes have | | | | | | occurredConfirmed by | | | | | | RAMÓN DOWD MD ([id number]) | | | | | | on 06/12/2018 5:39:49 PM | | | | + + [...] +---------+ + + LABS - EXTERNAL SCAN (06/11/2018 12:00 AM PDT) + + + | Narrative | Performed At | + + + | Ordered by an | | | unspecified provider. | | + + + ECG - EXTERNAL SCAN (06/11/2018 12:00 AM PDT) + + + | Narrative | Performed At | + + + | Ordered by an | | | unspecified provider. 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) | + + documented in this encounter Administered Medications + +--------+ +--------+------+------+ | Medication Order | MAR | Action | Dose | Rate | Site | | | Action | Date | | | | + +--------+ +--------+------+------+ | acetaminophen (TYLENOL) tablet | Given | 06/12/20 | 650 mg | | | | 650 mg 650 mg, Oral, EVERY 6 | | 18 7:18 | | | | | HOURS PRN, Pain, Fever, Starting | | AM PDT | | | | | 06/11/18 at 1743, | | | | | | | Post-op/Phase II | | | | | | + +--------+ +--------+------+------+ +-------+ +--------+---+---+ | Given | 06/11/20 | 650 mg | | | | | 18 11:58 | | | | | | PM PDT | | | | +-------+ +--------+---+---+ +---+---+ | | | +---+---+ + +-------+ +-------+---+---+ | aspirin chewable tablet 81 mg | Given | 06/13/20 | 81 mg | | | | 81 mg, Oral, DAILY, First dose on | | 18 8:21 | | | | | 06/12/18 at 0900, Do not give | | AM PDT | | | | | if already taken today., | | | | | | | Post-op/Phase II | | | | | | + +-------+ +-------+---+---+ +-------+ +-------+---+---+ | Given | 06/12/20 | 81 mg | | | | | 18 8:55 | | | | | | AM PDT | | | | +-------+ +-------+---+---+ +---+---+ | | | +---+---+ + +-------+ +-------+---+---+ | atorvaSTATin (LIPITOR) tablet | Given | 06/12/20 | 80 mg | | | | 80 mg 80 mg, Oral, NIGHTLY, | | 18 8:42 | | | | | First dose (after last | | PM PDT | | | | | modification) on 06/11/18 at | | | | | | | 2100 | | | | | | + +-------+ +-------+---+---+ +-------+ +-------+---+---+ | Given | 06/11/20 | 80 mg | | | | | 18 6:27 | | | | | | PM PDT | | | | +-------+ +-------+---+---+ +---+---+ | | | +---+---+ + +-------+ +-------+---+---+ | lisinopril (PRINIVIL, ZESTRIL) | Given | 06/13/20 | 10 mg | | | | tablet 10 mg 10 mg, Oral, 2 | | 18 8:21 | | | | | TIMES DAILY, First dose on Mon | | AM PDT | | | | | 06/11/18 at 1745 | | | | | | + +-------+ +-------+---+---+ +-------+ +-------+---+---+ | Given | 06/12/20 | 10 mg | | | | | 18 8:42 | | | | | | PM PDT | | | | +-------+ +-------+---+---+ | Given | 08/21/20 | 10 mg | | | | | 18 8:55 | | | | | | AM PDT | | | | +-------+ +-------+---+---+ + +---+ | | | + +---+ | metoprolol succinate | | | (TOPROL-XL) ER tablet 50 mg 50 | | | mg, Oral, DAILY, First dose on | | | Usha 06/14/18 at 0900, Tablet may | | | be cut where scored but do not | | | crush., | | + +---+ | | | + +---+ + +-------+ +-------+---+---+ | metoprolol tartrate (LOPRESSOR) | Given | 06/13/20 | 25 mg | | | | tablet 25 mg 25 mg, Oral, 2 | | 18 8:21 | | | | | TIMES DAILY, First dose on Mon | | AM PDT | | | | | 06/11/18 at 2100, Hold for SBP<100 | | | | | | | or HR<50, Post-op/Phase II | | | | | | + +-------+ +-------+---+---+ +-------+ +-------+---+---+ | Given | 06/12/20 | 25 mg | | | | | 18 8:43 | | | | | | PM PDT | | | | +-------+ +-------+---+---+ | Given | 06/12/20 | 25 mg | | | | | 18 8:55 | | | | | | AM PDT | | | | +-------+ +-------+---+---+ + +---+ | | | + +---+ | nitroglycerin (NITROSTAT) SL | | | tablet 0.4 mg 0.4 mg, | | | Sublingual, EVERY 5 MIN PRN, | | | Chest pain, Starting 06/11/18 | | | at 1743, May give up to 3 doses. | | | Notify physician after 2nd dose | | | given. Hold for SBP<100, | | | Post-op/Phase II | | + +---+ | | | + +---+ + +---------+ +---------+-------+---+ | sodium chloride 0.9% (NS) bolus | New Bag | 06/11/20 | 500 mLs | 83.3 | | | 500 mL 500 mL, Intravenous, | | 18 6:03 | | mL/hr | | | Administer over 6 Hours, ONCE, | | PM PDT | | | | | 06/11/18 at 1800, For 1 dose, | | | | | | | 1 ml/kg/hr x 6 hours, | | | | | | | Post-op/Phase II | | | | | | + +---------+ +---------+-------+---+ +---+---+ | | | +---+---+ + +-------+ +-------+---+---+ | ticagrelor (BRILINTA) tablet 90 | Given | 06/13/20 | 90 mg | | | | mg 90 mg, Oral, 2 TIMES DAILY, | | 18 8:21 | | | | | First dose on Mon06/12/18 at | | AM PDT | | | | | 0900, Do not give if already | | | | | | | taken today., Post-op/Phase II | | | | | | + +-------+ +-------+---+---+ +-------+ +-------+---+---+ | Given | 06/12/20 | 90 mg | | | | | 18 8:43 | | | | | | PM PDT | | | | +-------+ +-------+---+---+ | Given | 06/12/20 | 90 mg | | | | | 18 8:55 | | | | | | AM PDT | | | | +-------+ +-------+---+---+ +---+---+ | | | +---+---+ documented in this encounter
--- OUTSIDE RECORDS SUMMARY | ~2020-07-10 | XMS | Encounter Summary ---
Demographics + + + | Address | [address] | | | [place] [address] | + + + | Home Phone | | + + + | Preferred Language | Unknown | + + + | Marital Status | | + + + | Episcopal Affiliation | Unknown | + + + | Race | White | + + + | Ethnic Group | Not or | + + + Author + + + | Author | [facility] | | | and [place] | + + + | Organization | [facility] | | | [...] [place] | | | | | [address] | | + + + + + | Roselia Hayes | ECON | Unknown | | + + + + + Care Team Providers + +------+ + | Care Cvir Tech Name | Role | Phone | + +------+ + | Cesar Ojeda MD | PCP | | + +------+ + Encounter Details +--------+---------+ + + + | Date | Type | Department | Care Team | Description | +--------+---------+ + + + | 10/11/ | Surgery | [facility] | Carolina Maurice MD | CYSTOSCOPY; TUR | | 2019 | | MED [facility] OR [facility] OP | [address] | BLADDER TUMOR | | | | [address] | [place], [place] | | | | | [place], [place] | [address] | | | | | [address] | [phone] | | | | | [phone] | | | +--------+---------+ + + + Social History + + [...] + + + | Blood Pressure | 125/70 | 10/11/2019 11:00 AM | | | | | PST | | + + + + + | Pulse | 55 | 10/11/2019 11:00 AM | | | | | PST | | + + + + + | Temperature | 37 C (98.6 F) | 10/11/2019 10:43 AM | | | | | PST | | + + + + + | Respiratory Rate | 13 | 10/11/2019 11:00 AM | | | | | PST | | + + + + + | Oxygen Saturation | 97% | 10/11/2019 11:00 AM | | | | | PST [...] You can't be awakened Date Last Reviewed: 08/09/201619999166-6477 [employer]. [address] [place] [address], [place] [address]. All righ ts reserved. This information is [...] lasts more than a day, a fever [id number] (38 C), or trouble urinating. Date Last Reviewed: 10/23/201619998141-6068 [employer]. [address] [place] [address], [place] [address]. All righ ts reserved. This information is [...] Allergies ?? Penicillins Vitals Vitals Panel Recorded: [id number] 03:28PM 1. Weight: 160 lb 2. Blood Pressure: 110 / 62 3. Heart Rate: 48 4. Pulse Quality: Regular Recorded: 23Sep2019 08:09AM 5. Weight: 160 lb 6. Blood Pressure: 112 / 58 7. Heart Rate: 68 8. Pulse Quality: Bounding Results/Data Results 23Sep2019 11:03AM CT - Abdomen combined [address]86 CT - Abdomen combined: ORDERING PHYSICIAN: CAROLINA MAURICE; CLINICAL DATA: R31.0 Gross hematuria EXAMINATION: [72316] CT ABDOMEN COMBINED TECHNIQUE: Three-phase abdomen CT. Performed with 95 mL Omnipaque 350 intravenous contrast. COMPARISON: Retrograde pyelogram dated 02/01/2019 from [facility]. FINDINGS: Lung Base: Liver: Gallbaldder: Surgically absent. [...] aortic aneurysm. No retroperitoneal lymphadenopathy. Osseous structures: Bbbg-qv-siguvdui degenerative changes. Soft tissues: Unremarkable. IMPRESSION: Interval [...] pH: 5 pH Reference Range 5-8 Spec Branford: 1.010 Reference Range 1.010 - 1.030 Clarity: [...] ?? BMP (Basic Metabolic Panel); Status:Active; Requested for:40Ast0252; Perform:[facility]; Due:01Etb8861;Ordered; For:Bladder cancer; Ordered By:Carolina Maurice; ?? CBC; Status:Active; Requested for:03Nuf2398; Perform:[facility]; Due:46Qex5753;Ordered; For:Bladder cancer; Ordered By:Carolina Maurice; 1. Gross [...] might be diff erent from the original. [facility]IVE NOTE Pt. Name/Age/: Margarito Stark 79 y.o. 1940 Med. 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 A 17 American cystoscope was introduced. Pendulous and bulbar urethra was normal. Prostate fossa was resected and prostate mucosa had no varicosities. Bladder neck was widely patent. Bladder was entered and circumferentially inspected with 30 and 70 degree lenses. Promine nt thickened erythema was present across the mid trigone and just behind the trigone. 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 The 17 American scope was eas laurie introduced into the right distal ureter and threaded several centimeters cephalad withou t evidence of luminal tumor. A 17 American scope then inserted into the left orifice which ac complished surface debridement of irregular urothelium, and this material was collected for cytology. 0.035 inch diameter guidewire was threaded cephalad in the left ureter. Cystosco pe was removed. A 25 cm x 14 American ureteral access sheath was threaded over the [...] and threaded cephalad. Cystoscope was removed. 14 American by 25 cm ureteral ure teral access sheath easily advanced its full extent. Obturator was removed. Flexible urete roscope was introduced and guided to the right renal pelvis but all calyces and renal pelvis were inspected without evidence of tumor. Ureteroscope was slowly withdrawn visualizing th e entire right ureter without concerning mucosal changes. A 25 American resectoscope was inserted in the bladder with [...] by: Carolina Maurice MD, 10/11/2019 10:38 AM [facility] nterval H&P Note (unl inked) - Carolina [...] (H) | 70 - 109 mg/dL | [facility] | | | POC [...] + | [facility] | [address] | [place] | [phone] | | [facility] | | [address] | | | - LABORATORY | | | | + + + + + Medical Cytology (10/11/2019 12:00 AM PST) + + | Specimen | + + | | + + + + + | Narrative | Performed At | + + + | ORDERING PHYSICIAN: Carolina Maurice MD PATIENT NAME: [facility] PATHOLOGY | | MARGARITO ZAMAN GENDER: Nuria [...] | | Professional interpretation was performed by [facility]. | | | [facility] - [address] [place] [address] | | | (Wage Adjuster: Mello Lopez MD.; CLIA#:[id number]).8 | | | Technical preparation was performed by [facility] [id number] | | | [place] [address] and [employer], [facility] | | | [place] [address] [place] [address]. Diagnostician: | | | Neli ALVARADO ([facility]) Order Puller Diagnostician: | | | Mello Lopez MD [...] | | | COMMENT: As part of [facility]' Quality Improvement Program, | | | this case was reviewed by another member of our pathology staff. | | | NAL:[facility]:C1NR MICROSCOPIC EXAMINATION: Sections of the posterior | [...] component was | | | performed by [facility] [address] | | | (Wage Adjuster: Lynn Kohler MD; CLIA# [id number]). Professional | | | [facility] | | [place] [address] | | | (Wage Adjuster: Arnoldo Rogers MD; CLIA# [id number]). | | | Diagnostician: Abril Mendieta MD Pathologist Electronically Signed | | | 10/18/2019 | | + + + + +---------+ + + | Performing | Address | City/State[facility] | Phone Number | | Organization | [...] bladder, unspecified site (HCC) | + + | Gross hematuria | + + documented in this encounter Administered Medications + +--------+---------+------+------+------+ [...] Shortness of Breath, | | | Starting 10/11/19 at 1038, | | | For 1 [...] Anxiety, or agitation, Starting | | | 10/11/19 at 1038, Maximum | | | total dose 2 mg., Recovery/Phase | | | I | | + +---+ | | | + +---+ | morphine injection 1-4 mg 1-4 | | | mg, Intravenous, EVERY 5 MIN PRN, | | | Pain, Starting 10/11/19 at | | | 1038, First dose [...] One week or longer, | | | srrfwo-mzy-xemgo use of at least | | | [...]
--- OUTSIDE RECORDS SUMMARY | ~2020-07-10 | XMS | Encounter Summary ---
Demographics + + + | Address | [address] | | | [place] [address] | + + + | Home Phone | | + + + | Preferred Language | Unknown | + + + | Marital Status | | + + + | Advent Affiliation | Unknown | + + + [...] [place] | | | | | [address] | | + + + + + | Roselia Hayes | ECON | Unknown | | + + + + + Care Team Providers + +------+ + | Care Crawler Tractor Operator Name | Role | Phone | + +------+ + | Cesar Ojeda MD | PCP | | + +------+ + Reason for Visit +--------+--------+ + | Reason | Onset | Comments | | | Date | | +--------+--------+ + | Other | 06/12/ | plan of care | | | 2018 | | +--------+--------+ + Encounter Details +--------+ + + + + | Date | Type | Department | Care Team | Description | +--------+ + + + + | 06/12/ | Telephone | [facility] | Franck Tsai MD | Other (plan of care) | | 2018 | | CARDIOLOGY [address] | | | | | [place], | [place] | | | | | [place] [address] | [address] | | | | | [phone] | | | +--------+ + + + [...] this encounter Miscellaneous Notes Telephone Encounter - Alina Chavis - 06/14/2018 8:54 AM PDTPatient scheduled to see Dr. Tsai 07/05/18. ele phone Encounter - Priscilla Durant RN - 06/12/2018 1:20 PM PDTI will ask PSR's to please c oordinate an appointment with Dr Eulalio anderson. Thanks ....................................... ....Priscilla Durant RN on 06/12/18 at 13:21 elephone Encounter - Priscilla Durant RN - 06/12/2018 1:20 PM PDT----- Message from Jm Vang RN sent at 06/12/2018 10:35 PDT ----- Please schedule for follow up! Thank youElectronically signed by Priscilla Durant RN at 1:20 PM PDTdocumented in this encounter Plan of Treatment Not on filedocumented as of this encounter Visit Diagnoses Not on filedocumented in this encounter"
--- OUTSIDE RECORDS SUMMARY | ~2020-07-10 | XMS | Encounter Summary ---
Demographics + + + | Address | [address] | | | [place] [address] | + + + | Home Phone | | + + + | Preferred Language | Unknown | + + + | Marital Status | | + + + | Judaism Affiliation | Unknown | + + + | Race | White | + + + | Ethnic Group | Not or | + + + Author + + + | Author | [facility] | | | and [place] | + + + | Organization | [facility] | | [...] [place] | | | | | [phone] | | + + + + + | Roselia Hayes | ECON | Unknown | | + + + + + Care Team Providers + +------+ + | Care Trim Die Maker Name | Role | Phone | + +------+ + | Cesar Ojeda MD | PCP | | + +------+ + Encounter Details +--------+ + + + + | Date | Type | Department | Care Team | Description | +--------+ + + + + | 12/02/ | Hospital | [facility] | Lyndon Romero MD | | | 2017 | Encounter | MED [facility] | [address] | | | | | [address] | [place], [place] | | | | | [place], [place] | [address] | | | | | [address] | [phone] | | | | | [phone] | | | +--------+ + + + [...] + + + | Blood Pressure | 160/68 | 12/02/2016 1:00 PM | | | | | PST | | + + + + + | Pulse | 58 | 12/02/2016 2:00 PM | | | | | PST | | + + + + + | Temperature | 36 C (96.8 F) | 12/02/2016 11:56 AM | | | | | PST | | + + + + + | Respiratory Rate | 18 | 12/02/2016 2:00 PM | | | | | PST | | + + + + + | Oxygen Saturation | 97% | 12/02/2016 2:00 PM | | | | | PST | | + + + + + | Inhaled Oxygen | - | - | | | Concentration | | | | + + + + + | Weight | 77.6 kg (171 lb) | 12/02/2016 7:51 AM | | | | | PST | | + + + + + | Height | 170.2 cm (5' 7") | 12/02/2016 7:51 AM | | | | | PST | | + + + + + | Body Mass Index | 26.78 | 12/02/2016 7:51 AM | | | | | PST [...] documented as of this encounter Discharge Instructions Lyndon Haile MD - 12/02/2016Drink extra liquid until blood clears from urin e. Wait a few more days before he resume Plavix (clopidrogel) documented in this encounter Medications at Time [...] encounter H&P Notes Lyndon Romero MD - 12/02/2016 10:32 AM PSTNo interval change in history and physical exam . isLyndon duque MD - 0 11/30/2016 12:42 PM PSTAssessment 1. Enlarged prostate with urinary retention (N40.1,R33.8) 2. Bladder cancer (C67.9) Procedure This 76 year old male was evaluated as a new patient November 2015. He has a history of rec urrent low-grade bladder tumor since the . His last superficial disease was resected in 2009. His right ureteral orifice became obstructed in 2010. He required right antegrade marycarmen nt placement February 2013 with subsequent exchange of his double-J stent every 3 months under ge neral anesthetic. I performed transurethral resection of erythema around the right orifice ( interpreted as inflammation) and open right ureteroneocystostomy with stent 12/11/15. Cystos copy April 2016 noted flat erythema inferior to his reimplanted right ureter. Urine culture J chuckie 2015 and recovered Staphylococcus and were treated with Macrobid. He voids 6 times while awake and 2-3 times at night. Stream is variable with terminal inter mittency and terminal straining. He denies urgency. He remains on tamsulosin. Allergies penicillin. Medications include metformin 1000 mg twice daily, Lipitor 80 mg, lis inopril 20 mg, fenofibrate 160 mg, Plavix 75 mg, aspirin 81 mg. He suffered myocardial infarction June 2016 and received a single vessel stent. Blood pressure 147/74, pulse 62, respiration 16, weight 165 pounds. Alert male with mild ce ntral obesity. Clear speech and normal gait. Lungs are clear to auscultation. Heart has regu lar rate without murmur. Circumcised penis without lesion. Nontender normal testes. Normal a nal tone with 25 g smooth prostate. PREOPERATIVE DIAGNOSIS History of bladder tumor POSTOPERATIVE DIAGNOSIS Possible bladder wall neoplasm Obstructing prostate PROCEDURE PERFORMED Cystoscopy ANESTHETIC 2% Lidocaine jelly SURGEON Lyndon Romero M.D. PROCEDURE: In lithotomy, the genitalia are prepped and draped. A 17 Zambian cystoscope was i ntroduced. Pendulous and bulbar urethra is normal. Lateral lobes coapting through 2.5 cm wit h the right lobe dominant. Bladder is drained of a moderate residual and urine collected. Ci rcumferential inspection with 70 lens notes slight erythema occupying a 10 mm zone on the anterior bladder. The medial aspect the right trigone also has erythema spanning 15 mm. Both right and left ureteral orifices are gaping. 250 cc water was infused the bladder. The patient is escorted the restroom and I observe a brief initial good caliber, then multi ple terminal interruptions stream. Plan 1. UA w/Microscopic, Rflx to Culture; Status:Active; Requested for:15Nov2016; 2. PSA, total; Status:Active; Requested for:15Nov2016; 1. 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 Await urinalysis and conside r biopsy under anesthetic. 2. Obstructing prostate with incomplete bladder emptying. Symptoms not corrected with crow sulosin. Consider laser vaporization of prostate if he needs bladder biopsy under anestheti c. PSA drawn. Over 15 minute counseling visit separate from today's procedure. Labs reque sted from [facility]. Addendum 11/18/16 - urinalysis had 6-9 wbc/hpf and was culture negative. PSA was 1.46. Cc: Dr. Cesar Ojeda Signatures Electronically signed by : Lyndon Romero M.D.; Nov 18 2016 7:06AM PST (Author) documented in this enc ounter Miscellaneous Notes Op Note - Lyndon Romero MD - 12/02/2016 11:53 AM PSTFormatting of this note might be diff erent from the original. [facility] OPERATIVE NOTE Pt. Name/Age/: Lokesh Stark 76 y.o. 1940 [facility]. Record Number: [id number] Date of Operation/Procedure: 12/02/2016 Preoperative Diagnosis: Obstructing prostate [N40.1] Suspected recurrent bladder tumor (HCC) [C67.9] Post-Op Diagnosis Codes: * Benign prostatic hyperplasia with lower urinary tract symptoms, unspecified morphology [N40.1] * Malignant neoplasm of urinary bladder, unspecified site (HCC) [C67.9] Postoperative Diagnosis: Same Surgeon: Lyndon Romero MD Sintering Plant Supervisor(s): none Anesthesia Provider(s): Anesthesiologist: Sanjay Maldonado MD Anesthesia Type: General Procedure(s): Cyber Laser Prostate Vaporization, Bladder biopsy and fulguration Operative Indications: Lokesh Stark is a 76 y.o. year old male with a history of low -grade bladder tumors since the . Recent surveillance cystoscopy identifies a [address] one of erythema on the anterior bladder, and patchy erythema on the right hemitrigone. The patient has undergone right ureteral implantation because of stenosis associated with prior tumor resection. Both of his ureteral orifices are gaping. He has multiple terminal interr uption is with his stream. Operative Findings: Operation: The patient was identified as Lokesh Stark and the procedure was confirme d as stated above. The patient was placed in the supine position. SCD devices were applied. Following the induction of adequate general anesthesia, legs are placed in lithotomy and th e genitalia prepped and draped in the usual sterile fashion. A 23 Zambian cystoscope was int roduced. Pendulous and bulbar urethra were normal. Prostate coapted through 2 cm with late ral lobes. The bladder had irregular trabeculation at least partially associated with prior bladder tumor resection. The center of patchy erythema on the right posterior bladder was harvested with biopsy forceps. Base and periphery was fulgurated. The anterior bladder les ion could not be seen with 30 lens. A 23 [place]ian continuous-flow laser bridge scope was inserted. Cyber laser was used on [address] . Left lobe of the prostate was vaporized from 5 through 12:00, down to the proximal aspect of the verumontanum. Right lobe was vaporized between 7 and 12:00 down to the proximal asp ect of the verumontanum. Charred debris was cleared. Using the laser bridge scope, the anterior bladder erythema could now be seen and this focu s was treated with laser fulguration at 20 W. Estimated Blood Loss: none Transfused: no Drains: none Specimen (s): ID Type Source Tests Collected by Time Destination A : right posterior bladder lesion Tissue SPECIMEN TO PATHOLOGY Lyndon Romero MD 7 1110 Pathology B : right anterior bladder lesion Tissue SPECIMEN TO PATHOLOGY Lyndon Romero MD 12/02/2016 1111 Pathology Complications: none Electronically Signed by: Lyndon Romero MD, 12/02/2016 11:53 [facility] documented in this enc ounter Plan of Treatment Not on filedocumented as of this encounter Procedures + +--------+ + + + | Procedure Name | Priori | Date/Time | Associated Diagnosis | Comments | | | ty | | | | + +--------+ + + + | CYSTOSCOPY PROSTATE | | 12/02/2016 | Benign prostatic | | | VAPORIZATION | | 10:35 AM | hyperplasia with | | | TRANSURETHERAL | | PST | lower urinary tract | | | | | | symptoms, | | | | | | unspecified | | | | | | morphology | | | | | | Malignant neoplasm | | | | | | of urinary bladder, | | | | | | unspecified site | | | | | | (HCC) | | + +--------+ + + + | POC GLUCOSE | Routin | 12/02/2016 | | Results for this | | | e | 8:23 AM | | procedure are in the | | | | PST | | results section. | + +--------+ + + + | SURGICAL PATHOLOGY | Routin | 12/02/2016 | | Results for this | | EXAM | e | 12:00 AM | | procedure are in the | | | | PST | | results section. | + +--------+ + + + | LABS - EXTERNAL SCAN | | 11/21/2016 | | Results for this | | | | 12:00 AM | | procedure are in the | | | | PST | | results section. | + +--------+ + + + | ECG - EXTERNAL SCAN | | 11/30/2015 | | Results for this | | | | 12:00 AM | | procedure are in the | | | | PST | | results section. | + +--------+ + + + | ECG - EXTERNAL SCAN | | 11/30/2015 | | Results for this | | | | 12:00 AM | | procedure are in the | | | | PST | | results section. | + +--------+ + + + documented in this encounter Results POC Glucose (12/02/2016 8:23 AM PST) + +-------+ + + + | Component | Value | Ref Range | Performed | Pathologist | | | | | At | Signature | + +-------+ + + + | Glucose, | 141 | 70 - 150 mg/dL | [facility] | [address] | [place] | [phone] | | [facility] | | [address] | | | - LABORATORY | | | | + + + + + Surgical Pathology Exam (12/02/2016 12:00 AM PST) + + | Specimen | + + | | + + + + + | Narrative | Performed At | + + + | SPECIMEN(S): A RIGHT POSTERIOR BLADDER LESION SPECIMEN SOURCE: | [facility] | | A. RIGHT POSTERIOR BLADDER LESION CLINICAL HISTORY: N40.1 | [facility] | | (enlarged prostate with lower urinary tract symptoms) , C67.9 | | | (malignant neoplasm of bladder, unspecified) FINAL PATHOLOGIC | | | DIAGNOSIS: Right posterior bladder lesion, biopsy: - Urothelium | | | with reactive features, and mild acute and chronic stromal | | | inflammation. COMMENT: As part of [employer]' Quality | | | Improvement Program, this case was reviewed by another member of our | | | pathology staff. JVR:CLR:[facility]:C1NR GROSS DESCRIPTION: The | | | specimen is labeled "Lokesh Stark, right posterior bladder lesion". | | | Submitted in formalin is a 0.5 cm pink-garrett soft tissue fragment, | | | wrapped, totally embedded in one cassette. JVR:[facility] MICROSCOPIC | | | EXAMINATION: Histologic sections of all submitted blocks are examined | | | by light microscopy. These findings, together with the gross | | | examination, support the pathologic diagnosis. PERFORMING | | | LABORATORY: Tissue processing and slide preparation were performed by | | | [facility], [facility] [address], [place] [address] | | | (Oil Burner Technician: Lico Hernandez M.D.; IA#: [id number]). | | | Professional interpretation was performed by [facility] [employer], | | | [facility], [address] | | | [place] [address] (Oil Burner Technician: Lico Hernandez M.D.; [facility]#: | | | [id number]). Diagnostician: Mello Lopez MD | | | Pathologist Diagnostician: Lico Hernandez MD Pathologist | | | Electronically Signed 12/05/2016 | | + + + + +---------+ + + | Performing | Address | City/State/Zipcode | Phone Number | | Organization | | | | + +---------+ + + | [place] [facility] | | | | | [facility] | | | | + +---------+ + + LABS - EXTERNAL SCAN (11/21/2016 12:00 AM PST) + + + | Narrative | Performed At | + + + | Ordered by an | | | unspecified provider. | | + + + ECG - EXTERNAL SCAN (11/30/2015 12:00 AM PST) + + + | Narrative | Performed At | + + + | Ordered by an | | | unspecified provider. | | + + + ECG - EXTERNAL SCAN (11/30/2015 12:00 AM PST) + + + | [...] | ciprofloxacin (CIPRO) tablet | Given | 12/02/19 | 500 mg | | | | 500 mg 500 mg, Oral, 60 MIN | | 17 9:36 | | | | | PRE-OP, Starting Mon12/02/16 at | | AM PST | | | | | 0803, For 1 dose, Adjust | | | | | | | administration schedule to match | | | | | | | OR schedule., Pre-op, | | | | | | | Indications: Surgical Prophylaxis | | | | | | + +--------+ +--------+------+------+ +---+---+ | | | +---+---+ + +---------+ +---+---+---+ | lactated ringers (LR) infusion | New Bag | 12/02/19 | | | | | at 100 mL/hr, Intravenous, | | 17 10:29 | | | | | CONTINUOUS, Starting Mon12/02/16 | | AM PST | | | | | at 0830, Pre-op | | | | | | + +---------+ +---+---+---+ +---------+ +---+-------+---+ | New Bag | 12/02/19 | | 100 | | | | 17 8:32 | | mL/hr | | | | AM PST | | | | +---------+ +---+-------+---+ +---+---+ | | | +---+---+ + +-------+ +--------+---+---+ | phenazopyridine (PYRIDIUM) | Given | 12/02/19 | 200 mg | | | | tablet 200 mg 200 mg, Oral, 3 | | 17 12:52 | | | | | TIMES DAILY PRN, Urinary | | PM PST | | | | | Symptoms, urinary burning., | | | | | | | Starting 12/02/16 at 1218, | | | | | | | Administer with meals., | | | | | | | Post-op/Phase II | | | | | | + +-------+ +--------+---+---+ +---+---+ | | | +---+---+ documented in this encounter
--- OUTSIDE RECORDS SUMMARY | ~2020-07-10 | XMS | Encounter Summary ---
Demographics + + + | Address | [address] | | | [place] [address] | + + + | Home Phone | | + + + | Preferred Language | Unknown | + + + | Marital Status | | + + + | Catholic Affiliation | Unknown | + + + | Race | White | + + + | Ethnic Group | Not or | + + + Author + + + | Author | [facility] | | | and [place] | + + + | Organization | [facility] | | | [...] [place] | | | | | [address] | | + + + + + | Roselia Hayes | ECON | Unknown | | + + + + + Care Team Providers + +------+ + | Care Director Of Enterprise Architecture Name | Role | Phone | + +------+ + | Cesar Ojeda MD | PCP | | + +------+ + Reason for Visit + +--------+ + | Reason | Onset | Comments | | | Date | | + +--------+ + | Hospital Follow-up | 03/09/ | | | | 2016 | | + +--------+ + Encounter Details +--------+ + + + + | Date | Type | Department | Care Team | Description | +--------+ + + + + | 12/29/ | Telephone | [facility] | Mehreen Waller, | Hospital Follow-up | | 2016 | | [facility] | PharmD [address] | | | | | [address] | [facility] | | | | [place] [address] | [place] [address] | | | | | [phone] | [phone] | | +--------+ + + + + [...] Telephone Encounter - Mehreen Waller PharmD - 12/29/2016 1:10 PM PSTHospital Follow-Up P kimo Call Date discharged: 12/28/16 Primary Diagnosis: STEMI Education done/topics reviewed: 1. Health Status- Doing well. 2. Diagnosis education- reviewed pts knowledge of primary diagnosis and provided additional education. 3. Medication Reconciliation - No changes from AVS medication list. 4. Reminded pt of scheduled follow-up appointment. 5. Reviewed what do in emergency as well as a non-emergent situation. Verified pt has doct or's contact information. Date of follow-up appointment with [facility] rep: 01/[address] Ese Waller, PHARMOlivier 12/29/2016 13:14 documented in thi s encounter Plan of Treatment Not on filedocumented as of this encounter Visit Diagnoses Not on filedocumented in this encounter"
--- OUTSIDE RECORDS SUMMARY | ~2020-07-10 | XMS | Encounter Summary ---
Demographics + + + | Address | [address] | | | [place] [address] | + + + | Home Phone | | + + + | Preferred Language | Unknown | + + + | Marital Status | | + + + | Advent Affiliation | Unknown | + + + | Race | White | + + + | Ethnic Group | Not or | + + + Author + + + | Author | [facility] | | | and [place] | + + + | Organization | [facility] | | [...] [place] | | | | | [address] | | + + + + + | Roselia Hayes | ECON | Unknown | | + + + + + Care Team Providers + +------+ + | Care Lab Technologist Name | Role | Phone | + +------+ + | Cesar Ojeda MD | PCP | | + +------+ + Encounter Details +--------+ + + + + | Date | Type | Department | Care Team | Description | +--------+ + + + + | 10/11/ | Anesthesia | [facility] | Anil Nugent MD | | | 2019 | Event | [facility] | [address] | | | | | [address] | [place], [place] | | | | | [place], [place] | [address] | | | | | [address] | [phone] | | | | | [phone] | | | +--------+ + + + + Anesthesia Record + + + + + | Procedure Name | Responsible | Anesthesia Start | Anesthesia Stop Time | | | Anesthesiologist | Time | | + + + + + | CYSTOSCOPY; TUR | Anil Nugent MD | 10/11/19 6521 | 10/11/19 1044 | | BLADDER TUMOR (N/A | | | | | Bladder) | | | | + + + + + +----+---+ + + | Da | T | Event | Comment | | te | i | | | | | m | | | | | e | | | +----+---+ + + | 12 | 0 | | | | /2 | 9 | | | | 0/ | 2 | | | | 20 | 4 | | | | 19 | | | | +----+---+ + + | | 0 | An Checkout | Pre-use anesthesia machine/equipment checkout. | | | 9 | | | | | 2 | | | | | 4 | | | +----+---+ + + | | 0 | An Start | | | | 9 | Data | | | | 2 | | | | | 4 | | | +----+---+ + + | | 0 | An Start | Reassessment prior to anesthesia induction/procedure. | | | 9 | | | | | 4 | | | | | 0 | | | +----+---+ + + | | 0 | Preoxygenat | | | | 9 | ed | | | | 4 | | | | | 5 | | | +----+---+ + + | | 0 | An | | | | 9 | Induction | | | | 4 | | | | | 6 | | | +----+---+ + + | | 0 | An | | | | 9 | Intubation | | | | 4 | | | | | 8 | | | +----+---+ + + | | 0 | Cushing | | | | 9 | 43-degrees | | | | 5 | | | | | 0 | | | +----+---+ + + | | 0 | Pre-Procedu | | | | 9 | ral Timeout | | | | 5 | Completed | | | | 4 | | | +----+---+ + + | | 0 | First | | | | 9 | Inc/Proc St | | | | 5 | | | | | 5 | | | +----+---+ + + | | 1 | Breathing | | | | 0 | Spontaneous | | | | 3 | ly | | | | 4 | | | +----+---+ + + | | 1 | Cushing off | | | | 0 | | | | | 3 | | | | | 6 | | | +----+---+ + + | | 1 | Extubation/ | | | | 0 | Airway LDA | | | | 3 | Removal | | | | 7 | | | +----+---+ + + | | 1 | an stop | | | | 0 | data | | | | 3 | | | | | 8 | | | +----+---+ + + | | 1 | An Stop | Patient handed off to recovery nurse. | | | 4 | | | | | 4 | | | +----+---+ + + +------+ | Meds | +------+ + + + | Name | Total | + + + | propofol | 100 mg | + + + | propofol | 49 mg | + + + | lidocaine 2% | 100 mg | + + + | morphine (PF) injection 10 mg/mL | 10 mg | + + + | Phenylephrine 100mcg/mL SYRINGE | 230 mcg | + + + | lactated ringers (LR) infusion | 1,050 mL | + + + + + [...] 1353; Incision; | 02/01/19 1353 by | 10/11/19 1314 by | | | perineum; 10/11/19; 1314 | Junaid Gonzalez RN | Darron Carrington RN | +--------+ + + + | Periph | 10/11/19; 0841; Right; Hand; | 10/11/19 0841 by | 10/11/19 1305 by | | eral | [id number] catheter system; | Opal Guzman RN | Darron Carrington RN | | IV | 20 gauge, 1 1/4 in length; 0; | | | | | distraction, intradermal | | | | | injection, tolerated well; no | | | | | longer indicated; short term use; | | | | | 10/11/19; 1305 | | | +--------+ + + + | Airway | Placement Date: 10/11/19; | 10/11/19947 by | 10/11/19 1037 by | | | Placement Time: 947; Airway | Anil Nugent MD | Anil Nugent MD | | | Type: laryngeal mask, oral, | | | | | cuffed; Size: 4; Tube Reference | | | | | Point: secure and patent; Trauma: | | | | | none; Placement Check: bilateral | | | | | chest rise, exhaled CO2 | | | | | detection device; Removal Date: | | | | | 10/11/19; Removal Time: 1036 | | | +--------+ + + + documented in this encounter Social History + + + +--------+ + [...] encounter OR Notes Anesthesia Postprocedure Evaluation - Anil Nugent MD - 10/29/2019 3:09 PM PSTFormattin g of this note might be different from the original. ANESTHESIA POSTANESTHESIA EVALUATION Lokesh Stark 79 y.o. male 1940 [id number] Procedure(s) CYSTOSCOPY; TUR BLADDER TUMOR (N/A Bladder) BILATERAL URETEROSCOPY (N/A Ureter) Cooperates? Yes Mental Status Performs simple tasks. Respiratory Satisfactory - Airway patent (self maintained). Cardiovascular Satisfactory - Blood pressure and heart rate acceptable Temperature Satisfactory Pain Satisfactory N/V Control Satisfactory Hydration Satisfactory - No signs of dehydration Adverse Events ADVERSE EVENTS: No adverse events Vitals Value Taken Time Temp 37 C (98.6 F) 10/11/2019 10:43 AM Pulse 55 10/11/2019 12:30 PM Resp 16 10/11/2019 12:00 PM BP 156/66 10/11/2019 12:30 PM Arterial Line BP Arterial Line BP 2 SpO2 94 % 10/11/2019 12:30 PM Electronically signed by Anil Nugent MD 10/29/2019 3:09 PM [facility] Anil [facility]ugent [facility] at 10/29 3:09 PM PSTAnesthesia Preprocedure Evaluation - Anil Nugent MD - 10/10/2019 7:38 PM PST ANESTHESIA PREANESTHESIA EVALUATION Lokesh Stark 79 y.o. male 1940 [id number] Procedure(s): TUR BLADDER TUMOR (N/A Bladder) FLEXIBLE URETEROSCOPY (N/A Ureter) Medical,anesthesia, drug, allergy histories reviewed, NPO status verified. (+) perioperative beta-lenny/statin given/taken. Review of Systems / Med History Anesthesia History (+) previous surgery or anesthesia. Cardiovascular (+) hypertension and essential with hypertensive heart disease. (+) coronary artery disease. (+) past myocardial infarction occured more than 28 days prior to admission. (+) CABG. (+) cardiac stents. . Gastrointestinal/Hepatic (+) acid reflux. Endocrine (+) Diabetes: type 2. Cancer (+) bladder cancer. Physical Exam Airway MP II, TM >3 FB, Mouth opening >2 FB. Neck: full ROM, extends >30 degrees. Jaw protrus ion normal. Dental (+) dentures-lower and dentures-upper. CV Rhythm regular. Rate Normal. Neuro grossly normal. Anesthesia Plan ASA: 3 (prior DC,s/pCABG and stent) Type: General. Induction: Intravenous. Potential problems: None anticipated. Monitors: Standard ASA monitors. Postop Pain Management: Consent statement: Anesthetic plan, alternatives, risks and benefits discussed with patient and spouse. Consenting person understands and agrees to proceed. documented in this enc ounter Miscellaneous Notes Anesthesia Post-op Handoff - Anil Nugent MD - 10/11/2019 10:43 AM PST ANESTHESIA HANDOFF NOTE Lokesh Stark 79 y.o. male 1940 [id number] CYSTOSCOPY; TUR BLADDER TUMOR (N/A Bladder) BILATERAL URETEROSCOPY (N/A Ureter) HANDOFF NOTE Handoff Protocol Used: post-procedure handoff checklist completed The following were completed during the transfer of care: 1. Identification of patient 2. Identification of responsible practitioner (primary service) 3. Discussion of pertinent medical history 4. Discussion of the surgical/procedure course (procedure, reason for surgery, procedure pe rformed) 5. Intraoperative anesthetic management and issues/concerns 6. Expectations/plans for the early post-procedure period 7. Opportunity for questions and acknowledgement of understanding of report from receiving team Patient Location: Phase I Condition: sedated Airway/O2: other (see comments) Multimodal analgesia: multimodal analgesia used between 6 hours prior to anesthesia start t o PACU discharge Comments: Supplemental Oxygen used as necessary to maintain Oxygen Saturation at or above 9 2% The significant anesthesia concerns and VS in Epic were reviewed with the receiving team. Anil Nugent MD 10/11/2019 10:43 AM [facility] Anil Nugent MD at 10/11 10:43 AM PSTdocumented in this encounter Plan of Treatment Not on filedocumented as of this encounter Visit Diagnoses Not on filedocumented in this encounter Administered Medications + +---------+ +------+------+------+ | Medication Order | MAR | Action | Dose | Rate | Site | | | Action | Date | | | | + +---------+ +------+------+------+ | lactated ringers (LR) infusion | New Bag | 10/11/20 | | | | | at 10-100 mL/hr, Intravenous, | | 19 10:33 | | | | | CONTINUOUS, Starting 10/11/19 | | AM PST | | | | | at 0830, TKO., Pre-op | | | | | | + +---------+ +------+------+------+ +---------+ +--------+-------+---+ | New Bag | 10/11/20 | | | | | | 19 9:04 | | | | | | AM PST | | | | +---------+ +--------+-------+---+ | New Bag | 10/11/20 | 1,000 | 100 | | | | 19 8:41 | mLs | mL/hr | | | | AM PST | | | | +---------+ +--------+-------+---+ +---+---+ | | | +---+---+ + +-------+ +--------+---+---+ | lidocaine (PF) 2% injection | Given | 10/11/20 | 100 mg | | | | Intravenous, PRN, Starting Fri | | 19 9:46 | | | | | 10/11/19 at 0946, Anesthesia | | AM PST | | | | | Intra-op | | | | | | + +-------+ +--------+---+---+ +---+---+ | | | +---+---+ + +-------+ +------+---+---+ | morphine (PF) 10 mg/mL | Given | 10/11/20 | 4 mg | | | | injection PRN, Starting Fri | | 19 10:03 | | | | | 10/11/19 at 0946, Anesthesia | | AM PST | | | | | Intra-op | | | | | | + +-------+ +------+---+---+ +-------+ +------+---+---+ | Given | 10/11/20 | 6 mg | | | | | 19 9:46 | | | | | | AM PST | | | | +-------+ +------+---+---+ +---+---+ | | | +---+---+ + +-------+ +--------+---+---+ | phenylephrine (NOLVIA-SYNEPHRINE) | Given | 10/11/20 | 80 mcg | | | | 100 mcg/mL injection | | 19 10:23 | | | | | Intravenous, PRN, Starting Fri | | AM PST | | | | | 10/11/19 at 0956, Anesthesia | | | | | | | Intra-op | | | | | | + +-------+ +--------+---+---+ +-------+ +---------+---+---+ | Given | 10/11/20 | 50 mcg | | | | | 19 10:08 | | | | | | AM PST | | | | +-------+ +---------+---+---+ | Given | 10/11/20 | 100 mcg | | | | | 19 9:56 | | | | | | AM PST | | | | +-------+ +---------+---+---+ +---+---+ | | | +---+---+ + +-------+ +--------+---+---+ | propofol (DIPRIVAN) injection | Given | 10/11/20 | 100 mg | | | | Intravenous, PRN, Starting Fri | | 19 9:46 | | | | | 10/11/19 at 0946, Anesthesia | | AM PST | | | | | Intra-op | | | | | | + +-------+ +--------+---+---+ +---+---+ | | | +---+---+ + + + + +---------+---+ | propofol (DIPRIVAN) injection | Rate/Dos | 10/11/20 | 1 mg/min | 6 mL/hr | | | Intravenous, CONTINUOUS PRN, | e Change | 19 9:58 | | | | | Starting 10/11/19 at 0951, | | AM PST | | | | | Anesthesia Intra-op | | | | | | + + + + +---------+---+ +---------+ + + +---+ | New Bag | 12/20/20 | 2 mg/min | 12 mL/hr | | | | 19 9:51 | | | | | | AM PST | | | | +---------+ + + +---+ +---+---+ | | | +---+---+ documented in this encounter"
--- OUTSIDE RECORDS SUMMARY | ~2020-07-10 | XMS | Encounter Summary ---
Demographics + + + | Address | [address] | | | [place] [address] | + + + | Home Phone | | + + + | Preferred Language | Unknown | + + + | Marital Status | | + + + | Sikh Affiliation | Unknown | + + + | Race | White | + + + | Ethnic Group | Not or | + + + Author + + + | Author | [facility] | | | and [place] | + + + | Organization | [facility] | | | and [...] [place] | | | | | [address] | | + + + + + | Roselia Hayes | ECON | Unknown | | + + + + + Care Team Providers + +------+ + | Care Pancake Professional Name | Role | Phone | + [...] Description | +--------+---------+ + + + | 08/03/ | Office | [facility] | Franck Tsai MD | Coronary | | 2017 | Visit | CARDIOLOGY [address] | [address] | atherosclerosis due | | | | [place], | [place] | to lipid rich plaque | | | | [place] [address] | [address] | (Primary Dx) | | | | [phone] | | | +--------+---------+ + + + [...] + + + | Blood Pressure | 118/72 | 08/03/2017 11:17 AM | | | | | PDT | | + + + + + | Pulse | 64 | 08/03/2017 11:17 AM | | | | | PDT | | + + + + + | Temperature | - | - | | + + + + + | Respiratory Rate | 16 | 08/03/2017 11:17 AM | | | | | PDT | | + + + + + | Oxygen Saturation | - | - | | + + + + + | Inhaled Oxygen | - | - | | | Concentration | | | | + + + + + | Weight | 78.5 kg (173 lb) | 08/03/2017 11:17 AM | | | | | PDT | | + + + + + | Height | 170.2 cm (5' 7") | 08/03/2017 11:17 AM | | | | | PDT | | + + + + + | Body Mass Index | 27.1 | 08/03/2017 11:17 AM | | | | | PDT [...] Instructions Patient Instructions Priscilla Durant RN - 08/03/2017 11:45 AM PDTFollow up appointment: 6 months Provider: Franck Tsai MD Date: Check-In Time: When you have your labs done with Dr Ojeda in October, please make sure a copy gets sent to our office. documented in this encounter Progress Notes Franck Tsai MD - 08/03/2017 11:45 AM PDT PATIENT NAME: Lokesh Stark : 1940: AGE: 76 y.o. PRIMARY CARE: Cesar Ojeda MD CLINIC PROGRESS NOTE Mr. Stark presents for outpatient follow-up. Since his visit of 01/26/17, he is doing well from a cardiac viewpoint without complaints of chest pain nor shortness of breath. He has good exertion tolerance. His last lipid profile was July 2016. He continues on dual ant iplatelet therapy. He has a history of LIU placement in the right posterior descending sanjiv ry in 2015 and then repeat admission in December of this year with occlusion of saphenous vein graft to the right coronary artery with placement of drug-eluting stent within the vein dell t. The patient had been taken off his antiplatelet therapy prior to his December admission wit h acute infarction and occluded vein graft. He has bladder cancer is in remission and he saavedra s not had subsequent need for bladder surgery since the spring. MEDICATIONS: Current Outpatient Prescriptions Medication Sig Dispense [...] an injection" PHYSICAL EXAM Vital signs: Vitals: 08/03/17 1117 BP: 118/72 Pulse: 64 Resp: 16 Admit Weight: Weight: 78.5 kg (173 lb) Current weight: Weight: 78.5 kg (173 lb) Body mass index is 27.1 kg/m. General: Resting comfortably Chest: Clear Cardiovascular: Apical impulse, regular rhythm, no S3, jugular venous pressure normal2 Gastrointestinal: Abdomen soft, non-tender, normal bowel sounds, no organomegaly nor masses . Extremities: No edema Neuro: within normal LABS: No visits with results within 7 Day(s) from this visit. Latest known visit with results is: Orders Only on 01/26/2017 Component Date Value Ref Range Status NA 01/26/2017 141 136 - 149 mmol/L Final K 01/26/2017 4.2 3.5 - 5.1 mmol/L Final CL 01/26/2017 112* 98 - 109 mmol/L Final CO2 01/26/2017 19* 24 - 31 mmol/L Final ANION GAP 01/26/2017 10 3 - 16 mmol/L Final GLUCOSE 01/26/2017 162* 70 - 109 mg/dL Final BUN 01/26/2017 18 7 - 18 mg/dL Final Creatinine, Serum/Plasma 01/26/2017 1.24 0.60 - 1.30 mg/dL Final eGFR if not 01/26/2017 57* >=60 mL/min/1.73m2 Final CALCIUM 01/26/2017 9.5 8.3 - 10.5 mg/dL Final ALBUMIN 01/26/2017 4.0 3.2 - 5.0 g/dL Final BILIRUBIN TOTAL 01/26/2017 0.7 0.1 - 1.5 mg/dL Final Total protein 01/26/2017 6.5 6.0 - 7.8 g/dL Final AST 01/26/2017 23 10 - 42 U/L Final ALT 01/26/2017 28 6 - 45 U/L Final ALK PHOS 01/26/2017 65 40 - 110 U/L Final GLOBULIN 01/26/2017 2.5 2.1 - 3.8 g/dL Final Albumin/Globulin ratio 01/26/2017 1.6 0.8 - 2.0 Final BUN/CREA 01/26/2017 14.5 Final Hgb 01/26/2017 14.3 13.5 - 18.0 g/dL Final IMAGING: No results found. DIAGNOSES AND ASSESSMENTS: 1. Coronary atherosclerosis, history of non-ST elevation myocardial infarction 2015, histor y of ST elevation inferior myocardial infarction December 2016, LIU RPDA 2015, LIU saphenous ve in graft RCA December 2016: Patient clinically stable. Patient will continue dual antiplatelet therapy indefinitely. PLAN OR RECOMMENDATIONS: Fasting lipid profile, ALT Continue current medication Clinic follow-up with ECG 6 months I appreciate the opportunity of participating in the care of this patient. Franck Tsai MD, 08/03/2017 14:28 documented in this enc ounter Plan of Treatment Not on filedocumented as of this encounter Visit Diagnoses + + | Diagnosis | + + | Coronary atherosclerosis due to lipid rich plaque - Primary | + + documented in this encounter
--- OUTSIDE RECORDS SUMMARY | ~2020-07-10 | XMS | Encounter Summary ---
Demographics + + + | Address | [address] | | | [place] [address] | + + + | Home Phone [...] | Author | [facility] | | | and [place] | + + + | Organization | [facility] | | [...] [place] | | | | | [address] | | + + + + + | Roselia Hayes | ECON | Unknown | | + + + + + Care Team Providers + +------+ + | Care Lace Pinner Name | Role | Phone | + [...] | | | | unspecified | | [address] | | | | | site (HCC) | | Phone: | | | | | Malignant | | [phone] | | | | | neoplasm of | | Fax: | | | | | urinary | | [phone] | | | | | bladder, | | | | | | | unspecified | | | | | | | site (HCC) | | | | | | | [C67.9] | | | | | | | Procedures | | | | | | | TURBT ME | | | | | | | CYSTOURETHRO | | | | | | | SCOPY,URETER | | | | | | | CATHETER | | | | | | | ME | | | | | | | [...] + + | 02/01/ | Hospital | [facility] | Lyndon Romero MD | | | 2019 | Encounter | MED CTR OR INTRA OP | [address] [facility] | | | | | [address] | [place] | | | | | [place] | [address] | | | | | [address] | [phone] | | | | | [phone] | | | +--------+ + + + [...] lasts more than a day, a fever vsfr473N (38 C), or trouble urinating. Date Last Reviewed: 10/23/201619994054-6503 [employer]. [address] [place] [address]. All righ ts reserved. This information is [...] tablet by | 30 | 0 | // | | | tablet | mouth Daily. [...] coronary ar kathleen stent. He suffered another OK and underwent additional angioplasty March 2018. He is fo llowed by cardiology at [facility]. Surgical History History of Appendectomy History of [...] Status:Need Information - Financial Authorization; Requested for:01Feb2019; Perform:[facility]; Order Comments:TUR bladder tumor [id number] pyelography 32021; Due:17A nm4982; Last Updated By:Carlos A Harris V; 01/24/2019 [...] might be diff erent from the original. [facility] OPERATIVE NOTE Pt. Name/Age/: Lokesh Stark 78 y.o. 1940 Med. Record Number: [id number] Date of Operation/Procedure: 02/01/2019 Preoperative Diagnosis: History of bladder tumor (HCC) [C67.9] Postoperative Diagnosis: Same Surgeon: Lyndon Romero MD General Sales Manager(s): None Anesthesia Provider(s): Anesthesiologist: Sanjay Maldonado MD [...] in the usual sterile fashion. A 23 Barbadian cystoscope was visibly introduced. Pendulous and bulbar urethra was normal. P rostate was uniformly resected and had normal mucosa. The bladder was circumferentially ins pected noting a 2.5-3 cm zone of uniform erythema on the posterior bladder. Both ureteral o rifices were extremely large diameter and easily accepted the cystoscope. A 5 Barbadian open and ureteral catheter was threaded up the left ureter to the renal pelvis. Contrast was injected highlighting renal pelvis anatomy. A 0.035 inch diameter guidewire w as introduced to the left renal pelvis and the ureteral catheter removed. A 25 cm by 14 [facility] ureteral access sheath was advanced over the safety wire. Obturator was removed. Flexi ble ureteroscope was introduced. The remainder of the cephalad ureter, renal pelvis and all calyces were inspected without evidence of erythema or neoplasm. Ureteroscope and access s awais was slowly withdrawn and the entire remainder ureter visualized without abnormality. Cystoscope was reintroduced. The 5 Barbadian open-ended renal catheter was advanced up the ri ght ureter to the renal pelvis. Contrast was injected in right renal pelvis anatomy visuali zed without filling defect. A 0.035 inch diameter guidewire was introduced to the right chad al pelvis through the ureteral catheter, and then the ureteral catheter removed. Cystoscope was removed and the 14 Barbadian by 25 cm access sheath advanced Rodarte over the guidewire. Ob turator was removed. Flexible ureteroscope was introduced. Remainder of the right cephalad ureter, renal pelvis and calyces were all visualized without evidence of neoplasm or erythe ma. Ureteroscope and access sheath with slowly withdrawn visualizing the remainder of the l ower ureter without evidence of abnormality. A 24 Barbadian continuous flow resectoscope was introduced with the [...] Signed by: Lyndon Romero MD, 02/01/2019 14:07 [facility] nterval H&P Note (unl inked) - Lyndon [...] [address] | [place] | [phone] | | [facility] | | [address] | | | - LABORATORY | | [...] + | [facility] | [address] | [place] | [phone] | | [facility] | | [address] | | | - LABORATORY | | [...] [address] | [place] | [phone] | | [facility] | | [address] | | | - LABORATORY | | [...] ST. | [address] | [place] | [phone] | | [facility] | | [address] | | | - LABORATORY | | | | + + + + + Surgical Pathology Exam (02/01/2019 12:00 AM PDT) + + | Specimen | + + | | + + + + + | Narrative | Performed At | + + + | SPECIMEN(S): A POSTERIOR BLADDER SPECIMEN SOURCE: APatricia HYMAN | [facility] | | BLADDER CLINICAL HISTORY: C67.9 (malignant neoplasm of bladder, | [facility] | | unspecified) FINAL PATHOLOGIC DIAGNOSIS: Posterior bladder, | | | TURBT: - 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 - Negative for evidence of malignancy. COMMENT: | | | As part of [employer]' Quality Improvement Program, this case | | [...] component was performed by | | | [employer], [address] [place] [id number] (Medical | | | Director: Lynn Kohler MD; CLIA# [id number]). Professional | | | [facility] | | [address] | | | [address] ([employer] Application Administrator: Lico Hernandez M.D.). Diagnostician: | | | [...] if SBP <90., Starting | | | Mon02/01/19 at 1358, Hold if HR > | | | 100. Maximum total dose 20mg., | | | Recovery/Phase I | | + +---+ | | | + +---+ | fentaNYL (PF) injection 25-50 | | | mcg 25-50 mcg, Intravenous, | | | EVERY 5 MIN PRN, Pain, Starting | | | Mon02/01/19 at 1358, Maximum | | | total [...]
--- OUTSIDE RECORDS SUMMARY | ~2020-07-10 | XMS | Encounter Summary ---
Demographics + + + | Address | [address] | | | [place] [address] | + + + | Home Phone | | + + + | Preferred Language | Unknown | + + + | Marital Status | | + + + | Uatsdin Affiliation | Unknown | + + + [...] [place] | | | | | [address] | | + + + + + | Roselia Hayes | ECON | Unknown | | + + + + + Care Team Providers + +------+ + | Care Vice President Education Name | Role | Phone | + +------+ + | Cesar Ojeda MD | PCP | | + +------+ + Encounter Details +--------+ + + + + | Date | Type | Department | Care Team | Description | +--------+ + + + + | 01/26/ | Orders Only | [facility] | Mi Mulligan, | Atherosclerosis of | | 2017 | | CARDIOLOGY [address] | MD [address] | knik coronary | | | | [place], | [place], [place] | artery of knik | | | | [place] [address] | [address] | heart without angina | | | | [phone] | | pectoris | +--------+ + + + + Social [...] + +--------+ + + + | HEMOGLOBIN | Routin | 01/26/2017 | Atherosclerosis of | Results for this | | | e | 10:12 AM | knik coronary | procedure are in the | | | | PDT | artery of knik | results section. | | | | | heart without angina | | | | | | pectoris | | + +--------+ + + + | COMPREHENSIVE | Routin | 01/26/2017 | Atherosclerosis of | Results for this | | METABOLIC PANEL | e | 10:12 AM | knik coronary | procedure are in the | | | | PDT | artery of knik | results section. | | | | | heart without angina | | | | | | pectoris | | + +--------+ + + + documented in this encounter Results Hemoglobin (01/26/2017 10:12 AM [...] [address] | [place] | [phone] | | [facility] | | [address] | | | - LABORATORY | | [...] 18 | 7 - 18 mg/dL | [facility] | | | | | | [facility] | | | | | | MEDICAL | | | | | | CENTER - | | | | | | LABORATORY | | + + + + + + | Creatinine | 1.24 | 0.60 - 1.30 | [facility] | | | | | mg/dL | [facility] | | | | | | MEDICAL | | | | | | CENTER - | | | | | | LABORATORY | | + + + + + + | eGFR, | 57 (L)Comment: | >=60 | [facility] | | | non- | GLOMERULAR FILTRATION | mL/min/1.73m2 | [facility] | | | Congolese | RATE,ESTIMATED | | MEDICAL | | | | mL/min/1.64q6Dggs than | | CENTER - | | [...] | | Total | | | [facility] | | [...] LARA. | [address] | [place], [place] | [phone] | | [facility] | | [address] | | | - LABORATORY | | | | + + + + + documented in this encounter Visit Diagnoses + + | Diagnosis | + + | Atherosclerosis of knik coronary artery of knik heart without angina pectoris | + + documented in this encounter"
--- OUTSIDE RECORDS SUMMARY | ~2020-07-10 | XMS | Encounter Summary ---
Demographics + + + | Address | [address] | | | [place] [address] | + + + | Home Phone | | + + + | Preferred Language | Unknown | + + + | Marital Status | | + + + | Jewish Affiliation | Unknown | + + + | Race | White | + + + | Ethnic Group | Not or | + + + Author + + + | Author | [facility] | | | and [place] | + + + | Organization | [facility] | | | [...] [place] | | | | | [address] | | + + + + + | Roselia Hayes | ECON | Unknown | | + + + + + Care Team Providers + +------+ + | Care Diplomatic Interpreter Name | Role | Phone | + +------+ + | Cesar Ojeda MD | PCP | | + +------+ + Encounter Details +--------+ + + + + | Date | Type | Department | Care Team | Description | +--------+ + + + + | 03/29/ | Abstract | [facility] [place] | Franck Tsai MD | | | 2017 | | CARDIOLOGY [address] | [address] | | | | | [place], | [place], [place] | | | | | [place] [address] | [address] | | | | | [phone] | | | +--------+ + + + [...] + | EXTERNAL LAB: | Routin | 11/01/2017 | | Results for this | | TRIGLYCERIDES | e | | | procedure are in the | | | | | | results section. | + +--------+ + + + | EXTERNAL LAB: | Routin | 11/01/2017 | | Results for this | | CHOLESTEROL, HDL | e | | | procedure are in the | | | | | | results section. | + +--------+ + + + | EXTERNAL LAB: | Routin | 11/01/2017 | | Results for this | | CHOLESTEROL, TOTAL | e | | | procedure are in the | | | | | | results section. | + +--------+ + + + | EXTERNAL LAB: | Routin | 11/01/2017 | | Results for this | | CHOLESTEROL, LDL | e | | | procedure are in the | | | | | | results section. | + +--------+ + + + | LIPID PANEL | Routin | 11/01/2017 | | | | | e | | | | + +--------+ + + + documented in this encounter Results Lipid Panel (11/01/2017) + + | Specimen | + + | Blood | + + External Lab: Triglycerides (11/01/2017) + +-------+ + + + | Component | Value | Ref Range | Performed | Pathologist | | | | | At | Signature | + +-------+ + + + | Triglycerid | 119 | | | | | es, | | | | | | External | | | | | + +-------+ + + + + + | Specimen | + + | Blood | + + External Lab: Cholesterol, HDL (11/01/2017) + +-------+ + + + | Component | Value | Ref Range | Performed | Pathologist | | | | | At | Signature | + +-------+ + + + | HDL | 30.4 | mg/dl | | | | Cholesterol | | | | | | , External | | | | | + +-------+ + + + + + | Specimen | + + | Blood | + + External Lab: Cholesterol, Total (11/01/2017) + +-------+ + + + | Component | Value | Ref Range | Performed | Pathologist | | | | | At | Signature | + +-------+ + + + | Cholesterol | 109 | mg/dl | | | | , Total, | | | | | | External | | | | | + +-------+ + + + + + | Specimen | + + | Blood | + + External Lab: Cholesterol, LDL (11/01/2017) + +-------+ + + + | Component | Value | Ref Range | Performed | Pathologist | | | | | At | Signature | + +-------+ + + + | LDL | 55 | | | | | Cholesterol | | | | | | , Direct, | | | | | | External | | | | | + +-------+ + + + + + | Specimen | + + | Blood | + + documented in this encounter Visit Diagnoses Not on filedocumented in this encounter"
--- OUTSIDE RECORDS SUMMARY | ~2020-07-10 | XMS | Encounter Summary ---
Demographics + + + | Address | [address] | | | [place] [address] | + + + | Home Phone | | + + + | Preferred Language | Unknown | + + + | Marital Status | | + + + | Mu-Ism Affiliation | Unknown | + + + | Race | White | + + + | Ethnic Group | Not or | + + + Author + + + | Author | [facility] | | | and [place] | + + + | Organization | [facility] | | | [...] [place] | | | | | [address] | | + + + + + | Roselia Hayes | ECON | Unknown | | + + + + + Care Team Providers + +------+ + | Care Corset Fitter Name | Role | Phone | + +------+ + | Cesar Ojeda MD | PCP | | + +------+ + Encounter Details +--------+---------+ + + + | Date | Type | Department | Care Team | Description | +--------+---------+ + + + | 12/02/ | Surgery | [facility] | Lyndon Romero MD | Cyber Laser Prostate | | 2017 | | MED CTR OR INTRA OP | [address] [facility] | Vaporization, | | | | [address] | [place] | [facility].R. Bladder Tumor | | | | [place] | [address] | | | | | [address] | [phone] | | | | | [phone] | | | +--------+---------+ + + + [...] + + + | Blood Pressure | 148/78 | 12/02/2016 7:51 AM | | | | | PST | | + + + + + | Pulse | 56 | 12/02/2016 7:51 AM | | | | | PST | | + + + + + | Temperature | 36.1 C (97 F) | 12/02/2016 7:51 AM | | | | | PST | | + + + + + | Respiratory Rate | 18 | 12/02/2016 7:51 AM | | | | | PST | | + + + + + | Oxygen Saturation | 98% | 12/02/2016 7:51 AM | | | [...] as of this encounter Discharge Instructions Instructions Lyndon Romero MD - 12/02/2016Drink extra liquid until blood [...] his double-J stent every 3 months under neral anesthetic. I performed transurethral resection of erythema around the right orifice ( interpreted as inflammation) and open right ureteroneocystostomy with stent 12/11/15. Cystos copy April 2016 noted flat erythema inferior to his reimplanted right ureter. Urine culture J 2015 and recovered Staphylococcus and were treated [...] genitalia are prepped and draped. A 17 Pakistani cystoscope was i ntroduced. Pendulous and bulbar [...] might be diff erent from the original. [facility] OPERATIVE NOTE Pt. Name/Age/: Lokesh Stark 76 y.o. 1940 Med. 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 A 23 Pakistani cystoscope was int roduced. Pendulous and bulbar [...] be seen with 30 lens. A 23 Pakistani continuous-flow laser bridge scope was inserted. Cyber [...] Signed by: Lyndon Romero MD, 12/02/2016 11:53 [facility] documented in this enc ounter Plan [...] [address] | [place] | [phone] | | [facility] | | [address] | | | - LABORATORY | | | | + + + + + Surgical Pathology Exam (12/02/2016 12:00 AM PST) + + | Specimen | + + | | + + + + + | Narrative | Performed At | + + + | SPECIMEN(S): A RIGHT POSTERIOR BLADDER LESION SPECIMEN SOURCE: | [facility] | | A. RIGHT POSTERIOR BLADDER [...] | | inflammation. COMMENT: As part of [facility]' Quality | | | Improvement Program, this case was reviewed by another member of our | | | pathology staff. JVR:CLR:[facility]:C1NR GROSS DESCRIPTION: The | | | specimen is labeled "Lokesh Stark, right posterior bladder lesion". | | | Submitted in formalin is a 0.5 cm pink-garrett soft tissue fragment, | | | wrapped, totally embedded in one cassette. JVR:[facility] MICROSCOPIC | | | EXAMINATION: Histologic sections of all submitted blocks are examined | | | by light microscopy. These findings, together with the gross | | | examination, support the pathologic diagnosis. PERFORMING | | | LABORATORY: Tissue processing and slide preparation were performed by | | | [facility], [address] [place] [address], [facility], [place] [address] | | | (Gallery [employer] Curator: Lico Hernandez M.D.; CLIA#: [id number]). | | | Professional interpretation was performed by [facility], | | | [facility], [address] [facility] | | | [place] [address] ([employer] Museum Curator: Lico Hernandez M.D.; CLIA#: | | | [id number]). Diagnostician: Mello Lopez MD | | | [...] + | Diagnosis | + + | Benign prostatic hyperplasia with lower urinary tract symptoms, unspecified morphology | + + | Malignant neoplasm of [...] | tablet 200 mg 200 mg, Oral, | | 17 12:52 | | | [...]
--- OUTSIDE RECORDS SUMMARY | ~2020-07-10 | XMS | Encounter Summary ---
Demographics + + + | Address | [address] | | | [place] [address] | + + + | Home Phone | | + + + | Preferred Language | Unknown | + + + | Marital Status | | + + + | Adventism Affiliation | Unknown | + + + | Race | White | + + + | Ethnic Group | Not or | + + + Author + + + | Author | [facility] | | | and [place] | + + + | Organization | [facility] | | | [...] [place] | | | | | [address] | | + + + + + | Roselia Hayes | ECON | Unknown | | + + + + + Care Team Providers + +------+ + | Care Medical Front Desk Specialist Name | Role | Phone | [...] | | | | | | | [address] | | | | | hydronephros | | Phone: | | | | | is Crossing | | [phone] | | | | | 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: | | | | | stricture of | | [phone] | | | | | ureter with | | | | | | | | | | | | | | hydronephros | | | | | | | is [N13.1] | | | | | | | Procedures | | | | | | | [place] | | | | | | | [...] Description | +--------+---------+ + + + | 01/28/ | Surgery | [facility] | Lyndon Romero MD | cystoscopy, right | | 2016 | | MED CTR OR INTRA OP | [address] | ureteroscopy with | | | | [address] | [place], [place] | right ureter stent | | | | [place], [place] | [address] | removal | | | | [address] | [phone] | | | | | [phone] | | | +--------+---------+ + + + [...] + + + | Blood Pressure | 120/67 | 01/29/2016 10:00 AM | | | | | PDT | | + + + + + | Pulse | 59 | 01/29/2016 10:00 AM | | | | | PDT | | + + + + + | Temperature | 36.6 C (97.9 F) | 01/29/2016 9:28 AM | | | | | PDT | | + + + + + | Respiratory Rate | 16 | 01/29/2016 10:00 AM | | | | | PDT | | + + + + + | Oxygen Saturation | 97% | 01/29/2016 10:00 AM | | | | | PDT [...] Clarity: Cloudy Abnormal Reference Range Clear Spec [place]: 1.010 Reference Range 1.010 - 1.030 pH: [...] Cultured per protocol 22Dec2015 10:30AM Culture, Urine [address] (Rflx) Report Status: Final 12/24/2015 Result: [...] Romero MD - 01/29/2016 9:26 [facility] Pt. Name/Age/: Margarito Stark 75 y.o. 1940 Med. 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 A 21 Vietnamese cystoscope was int roduced. Pendulous and bulbar [...] Signed by: Lyndon Romero MD, 01/29/2016 9:26 [facility] lan of Care - Rosio Bolton Chaplain [...] 127 | 70 - 150 mg/dL | [place] | | | POC | | | [...] + + | [facility] | [address] | [place] | [phone] | | [facility] | | [address] | | | - LABORATORY | | | | + + + + + Medical Cytology (01/29/2016 12:00 AM PDT) + + | Specimen | + + | | + + + + + | Narrative | Performed At | + + + | ORDERING PHYSICIAN: Lyndon Romero MD PATIENT NAME: [facility] | | MARGARITO ZAMAN GENDER: Nuria [...] | | Professional interpretation was performed by [facility]. | | | [address] [address] | | | (Aviation Electrician: Lico Hernandez M.D.; CLIA#:[id number]).8 | | | Technical preparation was performed by [facility] [id number] | | [place] [address] and [employer], [facility] | | | [place] [address] [place] [address]. Diagnostician: | | | Dominique ALVARADO ([facility]) Emergency Department Physician Diagnostician: Lico Gonzalez | | | David [...] + | Diagnosis | + + | Crossing vessel and stricture of ureter with hydronephrosis | + + documented in this encounter [...] | mL/hr | | | CONTINUOUS, Starting 01/29/16 | | AM PDT | | | | | at 0745, Pre-op | | | | | | + +---------+ +---+-------+---+ +---+---+ | | | +---+---+ documented in this encounter
--- OUTSIDE RECORDS SUMMARY | ~2020-07-10 | XMS | Encounter Summary ---
Demographics + + + | Address | [address] | | | [place] [address] | + + + | Home Phone | | + + + | Preferred Language | Unknown | + + + | Marital Status | | + + + | Judaism Affiliation | Unknown | + + + | Race | White | + + + | Ethnic Group | Not or | + + + Author + + + | Author | [facility] | | | and [place] | + + + | Organization | [facility] | | | [...] [place] | | | | | [address] | | + + + + + | Roselia Hayes | ECON | Unknown | | + + + + + Care Team Providers + +------+ + | Care Business Office Director Name | Role | Phone | + +------+ + | Cesar Ojeda MD | PCP | | + +------+ + Reason for Visit + + + | Reason | Comments | + + + | Hospital Follow-up | | + + + Evaluate & Treat (Routine) +--------+--------+ + + + + | Status | Reason | Specialty | Diagnoses / | Referred By | Referred To | | | | | Procedures | Contact | Contact | +--------+--------+ + + + + | Closed | | Cardiology | Diagnoses | Rusty, | [facility], | | | | | Hospital | Cesar | Mi Greenberg MD | | | | | discharge | MD Alfonso | [address] | | | | | follow-up | [address] | [address] [place] | | | | | Coronary | [address] | [place] | | | | | atherosclero | [place], | [address] Phone: | | | | | sis Benign | [place] [address] | [phone] | | | | | essential | Phone: | Fax: | | | | | hypertension | [phone] | [phone] | | | | | NSTEMI | Fax: | | | | | | (non-ST | [phone] | | | | | | elevated | | | | | | | myocardial | | | | | | | infarction) | | | | | | | (HCC) | | | +--------+--------+ + + + + Encounter Details +--------+---------+ + + + | Date | Type | Department | Care Team | Description | +--------+---------+ + + + | 07/28/ | Office | [facility] [place] | Mi Mulligan, | Coronary | | 2015 | Visit | CARDIOLOGY [address] | MD [address] | atherosclerosis due | | | | [place], | [place], [place] | to lipid rich plaque | | | | [place] [address] | [address] | (Primary Dx); | | | | [phone] | | NSTEMI (non-ST | | | | | | elevated myocardial | | | | | | infarction) ([facility]); | | | | | | Hx of CABG | +--------+---------+ + + + Social History [...] + + + | Blood Pressure | 158/78 | 07/28/2016 8:17 AM | | | | | PDT | | + + + + + | Pulse | 62 | 07/28/2016 8:17 AM | | | | | PDT | | + + + + + | Temperature | - | - | | + + + + + | Respiratory Rate | 14 | 07/28/2016 8:17 AM | | | | | PDT | | + + + + + | Oxygen Saturation | - | - | | + + + + + | Inhaled Oxygen | - | - | | | Concentration | | | | + + + + + | Weight | 78.5 kg (173 lb) | 07/28/2016 8:17 AM | | | | | PDT | | + + + + + | Height | 170.2 cm (5' 7") | 07/28/2016 8:17 AM | | | | | PDT | | + + + + + | Body Mass Index | 27.1 | 07/28/2016 8:17 AM | | | | | PDT [...] encounter Progress Notes Mi Mulligan MD - 07/28/2016 8:02 AM PDTFormatting of this note might be different fr om the original. PATIENT NAME: Lokesh Stark : 1940: AGE: 75 y.o. PRIMARY CARE: Cesar Ojeda MD INPATIENT FOLLOW UP VISIT Date of Service: 07/28/2016 HISTORY OF PRESENT ILLNESS: Lokesh Stark is a 75 y.o. male with a history of previous CABG and recent bare metal stent beyond the insertion of the RCA graft.. He is being seen today for follow up. He was last seen at discharge. Since that time, he has felt well. He has no chest pain or shortness of breath. He is exercising and has no problems. He has been following his blood pressure and most are excellent. He has not had any bleeding. He has no hematuria. MEDICAL, SURGICAL, AND PERSONAL HISTORY Past Medical, Surgical, Family, and Social History are reviewed in EPIC. CURRENT PROBLEMS Patient Active Problem List Diagnosis Malignant neoplasm of bladder Coronary atherosclerosis Diabetes type 2, controlled Benign essential hypertension NSTEMI (non-ST elevated myocardial infarction) S/P CABG x 4 Dyslipidemia CURRENT MEDICATIONS Current Outpatient Prescriptions Medication Sig Dispense Refill Ascorbic Acid (VITAMIN [...] 1 tablet by mouth Daily. 90 tablet 1 Ferrous Fumarate 325 (106 FE) MG TABS [...] daily (after breakfast). 30 cap aroldo 11 No current facility-administered medications for this visit. ALLERGIES Allergies Allergen Reactions Aspartame Hives and Nausea And Vomiting Penicillins Other (See Comments) "I went numb all over after an injection" ROS Complete 10 system review is negative He did get his flu shot OBJECTIVE: PHYSICAL EXAM BP 158/78 mmHg | Pulse 62 | Resp 14 | Ht 1.702 m (5' 7") | Wt 78.472 kg (173 lb) | BMI 27.0 9 kg/m2 General appearance: no acute distress. Eyes: no icterus. Lids normal Mouth: no cyanosis. Neck: No lymphadenopathy in the neck or supraclavicular area. Good carotid upstroke. No bruits. No JVD Lungs: CTA normal expansion Heart: normal sounds no murmur Abdomen: soft. Ext: No CCE in upper or lower extremities Neuro: Awake and oriented x3 Repeat blood pressure by me: 130/80 He has not had his meds yet this morning LAB RESULTS: LIPID Lab Results Component Value Date CHOL 101* 07/03/2016 TRIG 134 07/03/2016 HDL 33 07/03/2016 LDL 41 07/03/2016 CHOLHDL 3.1 07/03/2016 CHEMISTRY Lab Results Component Value Date GLU 131* 07/04/2016 NA 141 07/04/2016 K 3.3* 07/04/2016 CL 108 07/04/2016 CO2 23* 07/04/2016 CALCIUM 8.7 07/04/2016 ALKPHOS 54 07/02/2016 AST 33 07/02/2016 ALT 32 07/02/2016 BILITOT 0.7 07/02/2016 CREA 0.95 07/04/2016 BUN 15 07/04/2016 HEMATOLOGY Lab Results Component Value Date WBC 9.7 07/04/2016 HGB 14.3 07/04/2016 HCT 42.5 07/04/2016 PLT 190 07/04/2016 ASSESSMENT: ASHD s/p recent NSTEMI S/P bare metal stent of the RCA beyond the SVG insertion Malignant neoplasm of the bladder hyperlipidemia PLAN: I will send a copy of this note to Dr Romero - he will stop the Plavix 5 days before his ne xt urinary procedure and restart when able If no problems we will continue Plavix as safe after his next urinary procedure Follow up with me in 3 months Call if problems or questions Electronically signed by: Mi Mulligan MD [facility] 07/28/2016 Portions of this chart may have been created with Disrupt CK voice recognition software. Occasi onal wrong-word or sound-alike substitutions may have occurred due to the inherent hernandez itations of voice recognition software. Please read the chart carefully and recognize, using context, where these substitutions have occurred. documented in this e ncounter Plan of Treatment Not on filedocumented as of this encounter Procedures + +--------+ + + + | Procedure Name | Priori | Date/Time | Associated Diagnosis | Comments | | | ty | | | | + +--------+ + + + | LABS - EXTERNAL SCAN | | 08/01/2016 | | Results for this | | | | 12:00 AM | | procedure are in the | | | | PDT | | results section. | + +--------+ + + + documented in this encounter Results LABS - EXTERNAL SCAN (08/01/2016 12:00 AM PDT) + + + | Narrative | Performed At | + + + | Ordered by an | | | unspecified provider. | | + + + documented in this encounter Visit Diagnoses + + | Diagnosis | + + | Coronary atherosclerosis due to lipid rich plaque - Primary | + + | NSTEMI (non-ST elevated myocardial infarction) (HCC) Acute myocardial infarction, | | subendocardial infarction, episode of care unspecified | + + | Hx of CABG Postsurgical aortocoronary bypass status | + + documented in this encounter
--- OUTSIDE RECORDS SUMMARY | ~2020-07-10 | XMS | Encounter Summary ---
Demographics + + + | Address | [address] | | | [place] [address] | + + + | Home Phone [...] + + + | Author | [facility] | | | and [place] | + + + | Organization | [facility] | | | [...] [place] | | | | | [address] | | + + + + + | Roselia Hayes | ECON | Unknown | | + + + + + Care Team Providers + +------+ + | Care Rn Mental Health Name | Role | Phone | + +------+ + | Cesar Ojeda MD | PCP | | + +------+ + Encounter Details +--------+ + + + + | Date | Type | Department | Care Team | Description | +--------+ + + + + | 10/15/ | Orders Only | [facility] [place] | Priscilla Durant, | | | 2018 | | CARDIOLOGY [address] | RN | | | | | [place], | | | | | | [place] [address] | | | | | | [phone] | | | +--------+ + + + [...]
--- OUTSIDE RECORDS SUMMARY | ~2020-07-10 | XMS | Encounter Summary ---
Demographics + + + | Address | [address] | | | [place] [address] | + + + | Home Phone | | + + + | Preferred Language | Unknown | + + + | Marital Status | | + + + | Temple Affiliation | Unknown | + + + | Race | White | + + + | Ethnic Group | Not or | + + + Author + + + | Author | [facility] | | | and [place] | + + + | Organization | [facility] | | [...] [place] | | | | | [address] | | + + + + + | Roselia Hayes | ECON | Unknown | | + + + + + Care Team Providers + +------+ + | Care Sales Rep Name | Role | Phone | + +------+ + | Cesar jOeda MD | PCP | | + +------+ + Reason for Visit + + + | Reason | Comments | + + + | Medication Refill | | + + + Encounter Details +--------+--------+ + + + | Date | Type | Department | Care Team | Description | +--------+--------+ + + + | 07/02/ | Refill | [facility] [place] | Franck Tsai MD | Medication Refill | | 2019 | | CARDIOLOGY [address] | [address] | | | | | [place], | [place], [place] | | | | | [place] [address] | [address] | | | | | [phone] | | | +--------+--------+ + + + [...]
--- OUTSIDE RECORDS SUMMARY | ~2020-07-10 | XMS | Encounter Summary ---
Demographics + + + | Address | [address] | | | [place] [address] | + + + | Home Phone | | + + + | Preferred Language | Unknown | + + + | Marital Status | | + + + | Mu-Ism Affiliation | Unknown | + + + | Race | White | + + + | Ethnic Group | Not or | + + + Author + + + | Author | [facility] | | | and [place] | + + + | Organization | [facility] | | | [...] [place] | | | | | [address] | | + + + + + | Roselia Hayes | ECON | Unknown | | + + + + + Care Team Providers + +------+ + | Care Defensive Secondary Coach Name | Role | Phone | + +------+ + | Cesar Ojeda MD | PCP | | + +------+ + Reason for Visit +--------+--------+ + | Reason | Onset | Comments | | | Date | | +--------+--------+ + | Other | 06/13/ | plan of care | | | 2018 | | +--------+--------+ + Encounter Details +--------+ + + + + | Date | Type | Department | Care Team | Description | +--------+ + + + + | 06/13/ | Telephone | [facility] | Franck Tsai MD | Other (plan of care) | | 2018 | | CARDIOLOGY [address] | | | | | [place], | [place] | | | | | [place] [address] | [address] | | | | | [phone] | | | +--------+ + + + [...] this encounter Miscellaneous Notes Telephone Encounter - Priscilla Durant RN - 06/13/2018 3:53 PM PDTSee telephone note from 06-12-18, this note is a duplicate ...........................................Priscilla vazquez RN on 06/13/18 at 15:53 elephone Encounter - Priscilla Durant RN - 06/13/2018 1:13 PM PDTI will ask PSR's to please coordinate an ap pointment with the patient. Thanks ...........................................Priscilla vazquez RN on 06/13/18 at 13:14 elephone Encounter - Priscilla Durant RN - 06/13/2018 1:13 PM PDT----- Message from Franck Tsai MD sent a t 06/13/2018 10:58 PDT ----- [place] 3-4 weeks documented in this encounter Plan of Treatment Not on filedocumented as of this encounter Visit Diagnoses Not on filedocumented in this encounter"
--- OUTSIDE RECORDS SUMMARY | ~2020-07-10 | XMS | Encounter Summary ---
Demographics + + + | Address | [address] | | | [place] [address] | + + + | Home Phone | | + + + | Preferred Language | Unknown | + + + | Marital Status | | + + + | Quaker Affiliation | Unknown | + + + | Race | White | + + + | Ethnic Group | Not or | + + + Author + + + | Author | [facility] | | | and [place] | + + + | Organization | [facility] | | [...] [place] | | | | | [address] | | + + + + + | Roselia Hayes | ECON | Unknown | | + + + + + Care Team Providers + +------+ + | Care Floor Representative Name | Role | Phone | + +------+ + | Cesar Ojeda MD | PCP | | + +------+ + Reason for Visit + +--------+ + | Reason | Onset | Comments | | | Date | | + +--------+ + | Appointment | 07/05/ | | | | 2015 | | + +--------+ + Encounter Details +--------+ + + + + | Date | Type | Department | Care Team | Description | +--------+ + + + + | 07/05/ | Telephone | [facility] | Mi Mulligan, | Appointment | | 2016 | | CARDIOLOGY [address] | MD [address] | | | | | [address], | [place], [place] | | | | | [place] [address] | [address] | | | | | [phone] | | | +--------+ + + + [...] this encounter Miscellaneous Notes Telephone Encounter - Heaven Faria - 07/06/2016 2:52 PM PDTPatient has been scheduled for an appointment with Dr. Mulligan on 07-28-16 at 8:45. 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 Referral was created and pat ient will be scheduled when authorization is received. See referral #[id number] for updates. El ectronically signed by Grecia Posadas at 07/06/2016 11:33 AM PDTTelephone Encounter - Dione Rocha RN - 07/05/2016 8:36 AM PDTPer Aliyah GAMBLE, please schedule follow up appointment w shanta Mulligan. Thank you. ...........................................DIONE ROCHA RN on 07/05/16 at 8:37 elephone Encounter - Dione Rocha RN - 07/05/2016 8:36 AM PDT----- Message from Aliyah Rivas RN sent at 07/04/2016 11:38 PDT ----- Received a rebel stent this weekend, discharged on plavix - please schedule follow up with Dr. Mulligan documente d in this encounter Plan of Treatment Not on filedocumented as of this encounter Visit Diagnoses Not on filedocumented in this encounter"
--- OUTSIDE RECORDS SUMMARY | ~2020-07-10 | XMS | Encounter Summary ---
Demographics + + + | Address | [address] | | | [place] [address] | + + + | Home Phone | | + + + | Preferred Language | Unknown | + + + | Marital Status | | + + + | Restorationist Affiliation | Unknown | + + + | Race | White | + + + | Ethnic Group | Not or | + + + Author + + + | Author | [facility] | | | and [place] | + + + | Organization | [facility] | | [...] [place] | | | | | [address] | | + + + + + | Roselia Hayes | ECON | Unknown | | + + + + + Care Team Providers + +------+ + | Care Welding Instructor Name | Role | Phone | + +------+ + | Cesar Ojeda MD | PCP | | + +------+ + Reason for Visit +--------+--------+ + | Reason | Onset | Comments | | | Date | | +--------+--------+ + | Other | 06/26/ | patient not feeling well | | | 2017 | | +--------+--------+ + Encounter Details +--------+ + + + + | Date | Type | Department | Care Team | Description | +--------+ + + + + | 06/26/ | Telephone | [facility] | Franck Tsai MD | Other (patient not | | 2017 | | CARDIOLOGY [address] | feeling well) | | | | [place], | [place] | | | | | [place] [address] | [address] | | | | | [phone] | | | +--------+ + + + [...] Telephone Encounter - Priscilla Durant RN - 06/26/2018 1:14 PM VASILIYVicki called to let us know that Ivan is just exhausted all the time, he does not have an appetite and a little bit of diarrhea. She was advised to have him see PCP or go to Urgent care for evaluation ...... .....................................Priscilla Durant RN on 06/26/18 at 13:15 documented in this encounter Plan of Treatment Not on filedocumented as of this encounter Visit Diagnoses Not on filedocumented in this encounter"
--- OUTSIDE RECORDS SUMMARY | ~2020-07-10 | XMS | Encounter Summary ---
Demographics + + + | Address | [address] | | | [place] [address] | + + + | Home Phone [...] Author + + + | Author | [facility] | | | and [place] | + + + | Organization | [facility] | | [...] [place] | | | | | [address] | | + + + + + | Roselia Hayes | ECON | Unknown | | + + + + + Care Team Providers + +------+ + | Care Banquet Kitchen Supervisor Name | Role | Phone | [...] Description | +--------+---------+ + + + | 10/04/ | Office | [facility] | Franck Tsai MD | Atherosclerosis of | | 2017 | Visit | CARDIOLOGY [address] | [address] | alutiiq coronary | | | | [place], | [place], [place] | artery of alutiiq | | | | [place] [address] | [address] | heart without angina | | | | [phone] | | pectoris (Primary | | | [...] + + + | Blood Pressure | 122/64 | 10/04/2018 8:48 AM | | | | | PST | | + + + + + | Pulse | 58 | 10/04/2018 8:48 AM | | | | | PST | | + + + + + | Temperature | - | - | | + + + + + | Respiratory Rate | 18 | 10/04/2018 8:48 AM | | | | | PST | | + + + + + | Oxygen Saturation | - | - | | + + + + + | Inhaled Oxygen | - | - | | | Concentration | | | | + + + + + | Weight | 77 kg (169 lb 12.1 | 10/04/2018 8:48 AM | | | | oz) | PST | | + + + + + | Height | 170.2 cm (5' 7") | 10/04/2018 8:48 AM | | | | | PST | | + + + + + | Body Mass Index | 26.59 | 10/04/2018 8:48 AM | | | | | PST [...] of this encounter Patient Instructions Patient Instructions Celeste Kaur RN - 10/04/2018 9:00 AM PST Stop ticagrelor (brilinta) Start clopidogrel (Plavix) 300 mg x 1 then 75 mg daily Follow up appointment: 6 months Provider: Franck Tsai MD Date: Check-In Time: documented in this encounter Progress Notes Franck Tsai MD - 10/04/2018 9:00 AM PST PATIENT NAME: Lokesh Stark : 1940: AGE: 78 y.o. PRIMARY CARE: Cesar Ojeda MD CARDIOLOGY CLINIC PROGRESS NOTE Mr. Stark presents for clinic follow-up. Since his prior visit of 07/05/18, he states that overall he is feeling improved with better stamina. He is participating in cardiac rehab. He has had in the past occasions of shortness of breath and chest discomfort which have bec ome less frequent. He states that these episodes can be relieved quickly with manual pressu re to his larynx and states this relates to a problem he has had in previous years. He has also on one occasion taken sublingual nitroglycerin with relief. He continues on ticagrelor but has been taking the medication only once daily rather than twice daily as prescribed du e to the cost of the medication. MEDICATIONS: Current Outpatient Prescriptions Medication Sig Dispense Refill artificial tears (REFRESH PLUS) 0.5% SOLN Place 1 drop into both eyes every 4 hours as needed (dry eyes). Ascorbic Acid (VITAMIN C) 1000 MG tablet Take 1,000 mg by mouth Daily. aspirin 81 MG EC tablet Take 1 tablet by mouth Daily. 30 tablet atorvaSTATin (LIPITOR) 80 MG tablet Take 80 mg by mouth nightly. cetirizine (ZYRTEC) 10 mg tablet Take 10 mg by mouth Daily. As needed. cholecalciferol (VITAMIN D-3) 2000 UNITS TABS Take 2,000 Units by mouth Daily. clopidogrel (PLAVIX) 75 mg tablet Take 300 mg x 1 on 12/14 pm then take 75 mg daily 34 tablet 5 ferrous sulfate 325 mg tablet Take 325 mg by mouth daily (with breakfast). fish oil 1,000 mg capsule Take 1,000 mg by mouth 2 times daily. folic acid (FOLVITE) 400 MCG tablet Take 400 mcg by mouth Daily. lisinopril (PRINIVIL, ZESTRIL) 20 mg tablet Take 20 mg by mouth Daily. metFORMIN (GLUCOPHAGE-XR) 500 mg 24 hr tablet Take 2,000 mg by mouth Daily. metoprolol succinate (TOPROL-XL) 25 mg 24 hr tablet Take 1 tablet by mouth Daily. 30 ta blet 5 Multiple Vitamins-Minerals (CENTRUM SILVER ULTRA MENS) TABS [...] an injection" PHYSICAL EXAM Vital signs: Vitals: 10/04/18 0848 BP: 122/64 Pulse: 58 Resp: 18 Admit Weight: Weight: 77 kg (169 lb 12.1 oz) Current weight: Weight: 77 kg (169 lb 12.1 oz) Body mass index is 26.59 kg/m. General: Alert, resting comfortably Chest: Clear Cardiovascular: Nondisplaced apical impulse, regular rhythm, S4 present, no S3, jugular meghann ous pressure normal Gastrointestinal: Abdomen soft, non-tender, normal bowel sounds, no organomegaly nor masses . Extremities: No edema Neuro: within normal LABS: No visits with results within 7 Day(s) from this visit. Latest known visit with results is: Office Visit on 07/05/2018 Component Date Value Ref Range Status VENTRICULAR RATE EKG 07/05/2018 54 BPM Final ATRIAL RATE 07/05/2018 54 BPM Final P-R INTERVAL 07/05/2018 156 ms Final QRS DURATION 07/05/2018 94 ms Final Q-T INTERVAL 07/05/2018 450 ms Final Q-T INTERVAL (CORRECTED) 07/05/2018 426 ms Final P WAVE AXIS 07/05/2018 54 degrees Final QRS AXIS 07/05/2018 -57 degrees Final T AXIS 07/05/2018 -97 degrees Final INTERPRETATION TEXT 07/05/2018 Final Value:Sinus bradycardia Left axis deviation Inferior-posterior infarct (cited on or before 25-DEC-2016) Abnormal ECG When compared with ECG of 12-JUN-2018 05:08, premature atrial complexes are no longer present Criteria for Lateral infarct are no longer present T wave inversion no longer evident in Lateral leads Confirmed by GARRETT KRUGER MD ([id number]) on 07/05/2018 7:37:01 PM IMAGING: No results found. DIAGNOSES AND ASSESSMENTS: 1. Coronary atherosclerosis, status post distal RCA PCI 06/11/18: The patient has been expe riencing symptoms that are anginal type however these episodes have been more rare recently. I explained to the patient the importance of maintaining dual antiplatelet therapy and the patient will be switched to clopidogrel begin with a loading dose of 300 mg after his last dose of itcagrelor and then 75 mg daily thereafter. The patient is instructed to contact he r office if he has increasing frequency, duration, or severity of dyspnea and/or chest disco mfort.. The patient will continue on dual antiplatelet therapy indefinitely. PLAN OR RECOMMENDATIONS: Change to clopidogrel 75 mg daily with initial dose of 300 mg tomorrow evening Clinic follow-up 6 months or sooner as needed Contact office if dyspnea or chest is comfort returns or worsens I appreciate the opportunity of participating in the care of this patient. Franck Tsai MD,[facility], 10/04/2018 10:00 documented in this enc ounter Plan of Treatment Not on filedocumented as of this encounter Visit Diagnoses + + | Diagnosis | + + | Atherosclerosis of alutiiq coronary artery of alutiiq heart without angina pectoris - | | Primary | + + documented in this encounter
--- OUTSIDE RECORDS SUMMARY | ~2020-07-10 | XMS | Encounter Summary ---
Demographics + + + | Address | [address] | | | [place] [address] | + + + | Home Phone [...] + + | Author | [facility] | | | and [place] | + + + | Organization | 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 | | | | | [place] | [place] | | | | | [place] [address] | [address] | | | | | [phone] | [phone] | | | | | | | [...] | 0 | 11/14/19 | | | (ZANA-CON) 10 mEq | Daily. | | | [...] | | | (PLAVIX) 75 mg | 12 pm then take | tablet | | [...] tablet under | 25 | 0 | 09/12/20 | | | (NITROSTAT) 0.4 mg | [...]
--- OUTSIDE RECORDS SUMMARY | ~2020-07-10 | XMS | Encounter Summary ---
Demographics + + + | Address | [address] | | | [place] [address] | + + + | Home Phone | | + + + | Preferred Language | Unknown | + + + | Marital Status | | + + + | Sikh Affiliation | Unknown | + + + | Race | White | + + + | Ethnic Group | Not or | + + + Author + + + | Author | [facility] | | | and [place] | + + + | Organization | [facility] | | | [...] [place] | | | | | [address] | | + + + + + | Roselia Hayes | ECON | Unknown | | + + + + + Care Team Providers + +------+ + | Care Clerical Dentist Assistant Name | Role | Phone | + +------+ + | Cesar Ojeda MD | PCP | | + +------+ + Reason for Referral Evaluate & Treat (Routine) +--------+ + + + + + | Status | Reason | Specialty | Diagnoses / | Referred By | Referred To | | | | | Procedures | Contact | Contact | +--------+ + + + + + | Closed | Specialty | Cardiac | Diagnoses | [facility] | Services | Rehabilitatio | NSTEMI | MD Franck | HOSPITAL | | | Required | n | (non-ST | [address] | [address] | | | | | elevated | [place] [address] | | | | | myocardial | [place], [place] | [place], [place] | | | | | infarction) | [address] | [address] | | | | | ([facility]) | Phone: | Phone: | | | | | Procedures | [phone] | [phone] | | | | | [place] | Fax: | Fax: | | | | | OUTPATIENT | [phone] | [phone] | | | | | CARDIAC | | | | | | | REHAB W/O | | | | | | | CONT ECG | | | | | | | MONITOR | | | | | | | 07/05> PEND | | | | | | | DICTATION | | | +--------+ + + + + + Reason for Visit + + + | Reason | Comments | + + + | New Patient | Hospital follow up | + + + | Coronary Artery | | | Disease | | + + + Evaluate & Treat (Routine) +--------+--------+ + + + + | Status | Reason | Specialty | Diagnoses / | Referred By | Referred To | | | | | Procedures | Contact | Contact | +--------+--------+ + + + + | Closed | | Cardiology | Diagnoses | Eulalio, | Barry, | | | | | NSTEMI | MD Franck | MD Franck | | | | | (non-ST | [address] | [address] | | | | | elevated | [place] | | | | | myocardial | [place] | [place] | | | | | infarction) | [address] | [address] Phone: | | | | | (HCC) | Phone: | [phone] | | | | | Coronary | [phone] | Fax: | | | | | atherosclero | Fax: | [phone] | | | | | sis | [phone] | | | | | | Hypertension | | | | | | | Procedures | | | | | | | [place] OFFICE | | | | | | | CONSULTATION | | | | | | | NEW/ESTAB | | | | | | | PATIENT 40 | | | | | | | MIN New | | | | | | | pateint to | | | | | | | Clinic, | | | | | | | Consulted by | | | | | | | Dr. varner | | | | | | | in Hospital | | | +--------+--------+ + + + + Encounter Details +--------+---------+ + + + | Date | Type | Department | Care Team | Description | +--------+---------+ + + + | 07/05/ | Office | [facility] | Franck Varner MD | NSTEMI (non-ST | | 2018 | Visit | CARDIOLOGY [address] | elevated myocardial | | | | [place], | [place], [place] | infarction) ([facility]) | | | | [place] [address] | [address] | (Primary Dx) | | | | [phone] | | | +--------+---------+ + + + [...] + + + | Blood Pressure | 98/50 | 07/05/2018 8:48 AM | AM reading at home | | | | PDT | 117/58 | + + + + + | Pulse | 52 | 07/05/2018 8:48 AM | AM reading at home | | | | PDT | 55 | + + + + + | Temperature | - | - | | + + + + + | Respiratory Rate | 52 | 07/05/2018 8:48 AM | | | | | PDT | | + + + + + | Oxygen Saturation | - | - | | + + + + + | Inhaled Oxygen | - | - | | | Concentration | | | | + + + + + | Weight | 73.1 kg (161 lb 2.5 | 07/05/2018 8:48 AM | | | | oz) | PDT | | + + + + + | Height | 170.2 cm (5' 7") | 07/05/2018 8:48 AM | | | | | PDT | | + + + + + | Body Mass Index | 25.24 | 07/05/2018 8:48 AM | | | | | PDT [...] Instructions Patient Instructions Celeste Kaur RN - 07/05/2018 9:00 AM PDT Decrease metoprolol to 25 mg daily Referral to cardiac rehab to [facility], someone from that department will call and braden brown with you Follow up appointment: 3 months Provider: Franck Varner MD Date: Check-In Time: documented in this encounter Progress Notes Franck Varner MD - 07/05/2018 9:00 AM PDT PATIENT NAME: Lokesh Stark : 1940: AGE: 77 y.o. PRIMARY CARE: Cesar Ojeda MD CARDIOLOGY CLINIC PROGRESS NOTE Mr. Stark presents for clinic follow-up after his recent PTCA of in-stent thrombosis of his right posterior sitting artery on 06/11/18. Since his hospital discharge he has had no rec urrence of chest pain. His primary care physician decreased the metoprolol succinate dose f rom 50-25 mg daily due to low heart rates. The patient continues on dual antiplatelet thera py which will continue indefinitely. MEDICATIONS: Current Outpatient Prescriptions Medication Sig Dispense [...] 99 ONETOUCH DELICA LANCETS FINE MISC 99 ticagrelor (BRILINTA) 90 mg tablet Take 1 tablet by mouth 2 times daily. 60 tablet 11 No current facility-administered medications for this visit. ALLERGIES Allergies Allergen Reactions Aspartame Hives and Nausea And Vomiting Cat Hair Extract Sensitivity Itching eye, runny nose Vegetable Oil Sensitivity Severe congestion Penicillins Other (See Comments) "I went numb all over after an injection" PHYSICAL EXAM Vital signs: Vitals: 07/05/18 0848 BP: 98/50 Pulse: 52 Resp: (!) 52 PainSc: 0 - No pain Admit Weight: Weight: 73.1 kg (161 lb 2.5 oz) Current weight: Weight: 73.1 kg (161 lb 2 .5 oz) Body mass index is 25.24 kg/m. General: Resting comfortably Chest: Clear Cardiovascular: Nondisplaced apical impulse, regular rhythm, normal S1 and S2, S4 present, no S3 Gastrointestinal: Abdomen soft, non-tender, normal bowel sounds, no organomegaly nor masses . Extremities: No edema Neuro: within normal LABS: Office Visit on 07/05/2018 Component Date Value [...] Lateral leads Confirmed by GARRETT KRUGER MD ([id number]) on 07/05/2018 7:37:01 PM IMAGING: Xr Chest 1 Vw Result Date: 06/15/2018 External films for comparison only No results will be in the chart. Resting ECG 07/05/18: Sinus bradycardia 54 bpm, left axis deviation, low limb lead voltage, inferior infarction DIAGNOSES AND ASSESSMENTS: 1. Status post acute inferior ST elevation myocardial infarction, RPDA PTCA of in-stent thr ombosis: Patient is clinically stable. His systolic blood pressure has been in a borderline low range. PLAN OR RECOMMENDATIONS: Home blood pressure monitoring Referral to cardiac rehab Clinic follow-up 3 months or sooner as needed I appreciate the opportunity of participating in the care of this patient. Franck Varner MD,[facility], 07/08/2018 9:51 documented in this enc ounter Plan of Treatment + + +--------+ + + | Name | Type | Priori | Associated Diagnoses | Order Schedule | | | | ty | | | + + +--------+ + + | Referral to Cardiac | Outpatient | Routin | NSTEMI (non-ST | 1 Occurrences | | Rehab | Referral | e | elevated myocardial | starting 07/05/2018 | | | | | infarction) ([facility]) | until 07/05/2019 | + + +--------+ + + documented as of this encounter Procedures + +--------+ + + + | Procedure Name | Priori | Date/Time | Associated Diagnosis | Comments | | | ty | | | | + +--------+ + + + | ECG 12 LEAD | Routin | 07/05/2018 | NSTEMI (non-ST | Results for this | | | e | 9:02 AM | elevated myocardial | procedure are in the | | | | PDT | infarction) ([facility]) | results section. | + +--------+ + + + documented in this encounter Results ECG 12 lead (07/05/2018 9:02 AM PDT) + + + + + [...] + + + + | Q-T | 450 | ms | [facility] | | | INTERVAL | | | | | + + + + + + | Q-T | 426 | ms | [facility] | | | INTERVAL | | | | | | (CORRECTED) | | | | | + + + + + + | P WAVE AXIS | 54 | degrees | [facility] | | + + + + + + | QRS AXIS | -57 | degrees | [facility] | | + + + + + + | T AXIS | -97 | degrees | [facility] | | + + + + + + | INTERPRETAT | Sinus bradycardiaLeft | | [facility] | | | ION TEXT | axis | | | | | | deviationInferior-yield improvement engineer | | | | | | ior infarct (cited on or | | | | | | before | | | | | | 25-DEC-2016)Abnormal | | | | | | ECGWhen compared with | | | | | | ECG of 12-JUN-2018 | | | | | | 05:08,premature atrial | | | | | | complexes are no longer | | | | | | presentCriteria for | | | | | | Lateral infarct are no | | | | | | longer presentT wave | | | | | | inversion no longer | | | | | | evident in Lateral | | | | | | leadsConfirmed by SASKIA | | | | | | GARRETT DE SANTIAGO ([id number]) on | | | | | | 07/05/2018 7:37:01 PM | | | | + + [...] unspecified | + + documented in this encounter
--- OUTSIDE RECORDS SUMMARY | ~2020-07-10 | XMS | Encounter Summary ---
Demographics + + + | Address | [address] | | | [place] [address] | + + + | Home Phone [...] + + + | Author | [facility] | | | and [place] | + + + | Organization | [facility] | | [...] [place] | | | | | [address] | | + + + + + | Roselia Hayes | ECON | Unknown | | + + + + + Care Team Providers + +------+ + | Care Staffing Rn Name | Role | Phone | + [...] Description | +--------+---------+ + + + | 07/03/ | Surgery | [facility] | Mi Le, | CV Cor Angio | | 2015 | | MED CTR CV INTRA OP | MD [address] | | | | | [address] | [place] | | | | | [place] | [id number] | | | | | [phone] | | | | | | [phone] | | | +--------+---------+ + + + [...] + + + | Blood Pressure | 156/71 | 07/03/2016 4:00 AM | | | | | PDT | | + + + + + | Pulse | 56 | 07/03/2016 4:00 AM | | | | | PDT | | + + + + + | Temperature | 35.7 C (96.3 F) | 07/03/2016 4:00 AM | | | | | PDT | | + + + + + | Respiratory Rate | 21 | 07/03/2016 4:00 AM | | | | | PDT | | + + + + + | Oxygen Saturation | 96% | 07/03/2016 12:06 AM | | | | | PDT | | + + + + + | Inhaled Oxygen | - | - | | | Concentration | | | | + + + + + | Weight | 76.3 kg (168 lb 3.4 | 07/03/2016 4:00 AM | | | | oz) [...] at the time of admission. Briefly, Mr. Stark is a [age] y.o. male who was admitted on 07/02/2016 with NSTEMI (non-ST elevated myocardial infarction ) . At admission he experienced the onset of neck and right chest pain. Pressure sensation. Presented to ER at [facility] and pain was relieved with a single [...] the LCX 3. Total occlusion of the campo circulation 4. Patent MARY to the LAD [...] No significant change was found Confirmed by NOEMÍ DE SANTIAGO, RAMÓN ([id number]) on 07/03/2016 10:45:00 AM Urinalysis With Microscopic Collection Time: 07/03/16 11:05 Result Value Ref Range COLOR Straw Light Yellow, Yellow, Straw CLARITY Clear Clear PH UA 6.0 5.0-8.0 Specific [place] 1.043 (H) 1.001-1.030 PROTEIN UA Negative Negative [...] sit around, try going for a walk. [id number] [employer]. [address] [place] [id number]. All righ ts reserved. This information is [...] make a follow-up appointment with PCP and jigger artisan. The patient verbalized understanding of the above [...] pain. Pressure sensation. Presented to ER a [facility] and pain was relieved with a single [...] reactions to iodine contrast agent or sedatives. detention risk s include re-blockage (restenosis) and stent [...] Performed by: MI LE Authorized by: MI EL Consent: Verbal consent obtained. Written consent obtained. [...] verify the correct elkin ent, procedure, equipment, computer network support specialist and site/side marked as required. Preparation: Patient [...] 07/04/2016 PRIMARY CARE PROVIDER: Cesar Ojeda MD SHORTHAND TEACHER: Dr. Mi Le MD, [facility], [facility] PRE-PROCEDURE DIAGNOSIS: NSTEMI POST-PROCEDURE DIAGNOSIS: PTCA and [...] was performed in multiple views using 6 Tajik JR4 and JL 4 diagnostic catheters an d LCB, the JR4 is used for MARY and an RCB for the right graft. A 5 cambodian pigtail catheter was advanced into the left ventricle, pressures were measured, and aortic root injection was performed. A pullback across the valve was used to assess if there was a gradient across t he aortic valve. After review of the digital images, I elected to proceed with the coronary intervention. T he patient's anticoagulation regimen consisted of Bivalirudin and Plavix. A 6 cambodian MPA anthony de was used to cannulate the SVG to the right coronary vessel. The lesion was crossed with the whisper wire a Forte floppy would no cross and was used [...] the LCX 3. Total occlusion of the campo circulation 4. Patent MARY to the LAD [...] there are is sues Mi Le MD, [facility], [facility] DATE/TIME: 07/04/2016 10:02 07/04/2016 10:02 Portions of this chart were created with XIPWIRE voice recognition software. Occasional wron g-word or [...] Outcome: Goal Achieved Date Met: 07/04/16 lan of Dayami - Arlette Newell RN - 07/04/2016 11:44 AM PDTProblem: Patient Care Overview (Adult) Goal: Personalization Needs & Preferences Outcome: Goal Achieved Date Met: 07/04/16 Ivan understands puncture sites examination and care, also f/u visits with PCP and return to cardiology here in 2 weeks. He is being dc'd on plavix. eICU Note - Sma barry, Aliyah Tanner RN - 07/04/2016 11:40 AM [...] lives with his in their home in [place]. He is normally very independent with his ADL's he does not need any or have any DME. He cur rently still drives. He declines the need for any home health services at this time. Dr Cesar Ojeda is his PCP and he prefers to schedule his own appts. [facility] pharmacy in [place] is where he currently get his prescriptions. [...] with no hematoma noted, will monitor. lan Linda Chopra - 07/03/2016 5:36 PM PDTCM didn 't see, patient in a procedure. Electronically signed by: Linda Corral 07/03/2016 17:36 edation Documentation - Aliyah Gifford RN - 07/03/2016 8:03 AM PDTSee Dwight for vital signs, hemodynamics, and o ther documentation. See MD procedure note. [employer] times and Epic time may be different but close to the same time. Dwight will have the most accurate times. Aliyah Rivas RN lan Ren Dickens RN - 07/03/2016 7:44 AM PDTProblem: Patient Care Overview (Adult) Goal: Care Team Goals & Evaluation PROBLEM-RELATED GOALS: STRATEGY TO ACHIEVE GOALS: RESTRAINT-RELATED GOALS: STRATEGIES TO ACHIEVE RESTRAINT GOALS: Outcome: Unchanged Goal Evaluation:Chest pain, planned heart cath at 0800, head to clinical lab clerk at 0730, trop this AM 1+, heparin [...] [address] | [place] | [phone] | | [facility] | | [address] | | | - LABORATORY | | [...] (H) | 70 - 109 mg/dL | [facility] | | | | | | [facility] | | | | | | MEDICAL | | | | | | CENTER - | | | | | | LABORATORY | | + + + + + + | BUN | 15 | 7 - 18 mg/dL | [facility] | | | | | | [facility] | | | | | | MEDICAL | | | | | | CENTER - | | | | | | LABORATORY | | + + + + + + | Creatinine | 0.95 | 0.60 - 1.30 | [facility] | | | | | mg/dL | [facility] | | | | | | MEDICAL | | | | | | CENTER - | | | | | | LABORATORY | | + + + + + + | eGFR, | >60Comment: GLOMERULAR | >=60 | [facility] | | | non- | FILTRATION | mL/min/1.73m2 | [facility] | | | Wallisian | RATE,ESTIMATED | | MEDICAL | | | | mL/min/1.36g1Ocuz than | | CENTER - | | [...] | | | | | mg/dL | [facility] | | | | | [...] [address] | [place] | [phone] | | [facility] | | [address] | | | - LABORATORY | | | | + + + + + CK Total (07/04/2016 4:13 AM PDT) + +-------+ + + + | Component | Value | Ref Range | Performed | Pathologist | | | | | At | Signature | + +-------+ + + + | CK TOTAL | 69 | 22 - 269 U/L | [facility] | | | | | | [facility]. [...] [address] | [place] | [phone] | | [facility] | | [address] | | | - LABORATORY | | [...] + | [facility] | [address] | [place] | [phone] | | [facility] | | [address] | | | - LABORATORY | | [...] | | chromogenic agar method | | [facility] | | | | | | MEDICAL [...] + + | [facility] | [address] | [place] | [phone] | | [facility] | | [address] | | | - LABORATORY | | [...] - 1.030 | [facility] | | | [place], | | | [facility] | | [...] | | Urine | | | [facility] | | | | | | MEDICAL [...] [address] | [place] | [phone] | | [facility] | | [address] | | | - LABORATORY | | [...] | | | | RAMÓN DOWD MD ([id number]) | | | | | | on [...] correct patient, procedure, | | | equipment, computer network support specialist and site/side marked as required.Preparation: | | [...] REPORT PATIENT NAME: | | | Lokesh JenkinsothDATE OF : 1940MEDICAL RECORD NUMBER: | | | [id number] OF PROCEDURE: 07/04/2016 | | | | | | PRIMARY CARE PROVIDER: ELISA Duong | | | WATER QUALITY ANALYST: Dr. Mi Le MD, [facility] PRE-PROCEDURE | | | DIAGNOSIS: NSTEMIPOST-PROCEDURE DIAGNOSIS: [...] was performed in multiple views using 6 Tajik JR4 and JL 4 | | | diagnostic catheters and LCB, the JR4 is used for MARY and an RCB for | | | the right graft. A 5 cambodian pigtail catheter was advanced into the | [...] and Plavix. | | | A 6 cambodian MPA guide was used to cannulate the [...] to the LCX3. Total occlusion of the campo circulation4. | | | Patent MARY to [...] if there are issues Mi Le MD, [facility] | | [facility] Center[facility]/TIME: 07/04/2016 10:029 10:02 Portions of | | | this chart were created with XIPWIRE voice recognition software. | | | Occasional [...] | |performed in multiple views using 6 Tajik JR4 and JL 4 | | |diagnostic catheters and LCB, the JR4 is used for MARY and an RCB | | |for the right graft. A 5 cambodian pigtail catheter was advanced | | |into [...] |consisted of Bivalirudin and Plavix. A 6 cambodian MPA guide was | | |used to cannulate the SVG to the right coronary vessel. The | | |lesion was crossed with the whisper wire a [place]ul[place] floppy would no | | |cross and was [...] | | |3. Total occlusion of the campo circulation | | |4. Patent MARY to [...] | | | | |Mi Le MD, [facility] | | |Formerly [facility] | | |DATE/TIME: 07/04/2016 10:02 | | |07/04/2016 10:02 | | | | | |Portions of this chart were created with XIPWIRE voice recognition | | |software. Occasional wrong-word [...] by | | | | | | NOEMÍ DE SANTIAGO, RAMÓN ([id number]) | | | | | | on [...] | | | Cells | | | . [facility] | | [...] [address] | [place] | [phone] | | [facility] | | [address] | | | - LABORATORY | | | | + + + + + PTT (07/03/2016 4:17 AM PDT) + +--------+ + + + | Component | Value | Ref Range | Performed | Pathologist | | | | | At | Signature | + +--------+ + + + | aPTT | 64 (H) | 22 - 36 seconds | [facility] | | | | | [...] [address] | [place] | [phone] | | [facility] | | [address] | | | - LABORATORY | | [...] 13 | 7 - 18 mg/dL | [facility] | | | | | | [facility] | | | | | | MEDICAL | | | | | | CENTER - | | | | | | LABORATORY | | + + + + + + | Creatinine | 0.95 | 0.60 - 1.30 | [facility] | | | | | mg/dL | [facility] | | | | | | MEDICAL | | | | | | CENTER - | | | | | | LABORATORY | | + + + + + + | eGFR, | >60Comment: GLOMERULAR | >=60 | [facility] | | | non- | FILTRATION | mL/min/1.73m2 | [facility] | | | Wallisian | RATE,ESTIMATED | | MEDICAL | | | | mL/min/1.84p3Rmuh than | | CENTER - | | [...] | | ine Ratio | | | . [facility] | | [...] + | [facility] | [address] | [place] | [phone] | | [facility] | | [address] | | | - LABORATORY | | | | + + + + + Lipid Panel (07/03/2016 4:17 AM PDT) + + + + + + | Component | Value | Ref Range | Performed | Pathologist | | | | | At | Signature | + + + + + + | Triglycerid | 134 | 35 - 160 mg/dL | [facility] | | | es | | | [facility] | | [...] | | | Ratio | | | [facility] | [...] [address] | [place] | [phone] | | [facility] | | [address] | | | - LABORATORY | | [...] | | Critical Result called | | [facility] | | | | to and read back by Ren | | MEDICAL | | | | Tian on 07/03/2016 [...] | | | | | | [employer] | | | | | [...] + | [facility] | [address] | [place] | [phone] | | [facility] | | [address] | | | - LABORATORY | | [...] [facility] | | | | | | [facility] | | | | | | MEDICAL | | | | | | CENTER - | | | | | | LABORATORY | | + +---------+ + + + | Albumin/Blanquita | 1.5 | 0.8 - 2.0 | [facility] | | | bulin Ratio | | | [facility] | | | | | | MEDICAL | | | | | | CENTER - | | | | | | LABORATORY | | + +---------+ + + + | Bilirubin, | 0.10 | 0.00 - 0.20 | [facility] | | | Direct | | mg/dl | [facility] | | | | [...] [address] | [place] | [phone] | | [facility] | | [address] | | | - LABORATORY | | [...] | | | | | | [employer] | | | | | [...] [address] | [place] | [phone] | | [facility] | | [address] | | | - LABORATORY | | [...] + | [facility] | [address] | [place] | [phone] | | [facility] | | [address] | | | - LABORATORY | | [...] | | | | RAMÓN DOWD MD ([id number]) | | | | | | on [...] | | POC | | | [facility] | | [...] [address] | [place] | [phone] | | [facility] | | [address] | | | - LABORATORY | | [...] in this encounter Administered Medications + +---------+ + +-------+------+ | Medication Order | MAR | Action | Dose | Rate | Site | | | Action | Date | | | | + +---------+ + +-------+------+ | bivalirudin (ANGIOMAX) 250 mg | New Bag | 07/03/20 | 1.75 | 26.7 | | | in 50 ml NS infusion CONTINUOUS | | 16 8:34 | mg/kg/hr | mL/hr | | | PRN, Starting 07/03/16 at | | AM PDT | | | | | 0834, Intra-op | | | | | | + +---------+ + +-------+------+ +---+---+ | | | +---+---+ + +-------+ +---------+---+---+ | bivalirudin (ANGIOMAX) 5 mg/ml | Given | 07/03/20 | 57.225 | | | | in NS bolus bolus ONCE PRN, | | 16 8:33 | mg | | | | Starting Rufus 07/03/16 at 0833, | | AM PDT | | | | | Intra-op | | | | | | + +-------+ +---------+---+---+ +---+---+ | | | +---+---+ + +-------+ +---------+---+---+ | diphenhydrAMINE (BENADRYL) | Given | 07/03/20 | 12.5 mg | | | | injection ONCE PRN, Starting Mon | | 16 8:48 | | | | | 07/03/16 at 0848, Intra-op | | AM PDT | | | | + +-------+ +---------+---+---+ +---+---+ | | | +---+---+ + +-------+ +--------+---+---+ | fentaNYL (PF) injection ONCE | Given | 07/03/20 | 25 mcg | | | | PRN, Starting Rufus 07/03/16 at | | 16 9:15 | | | | | 0808, Intra-op | | AM PDT | | | | + +-------+ +--------+---+---+ +-------+ +--------+---+---+ | Given | 07/03/20 | 25 mcg | | | | | 16 8:41 | | | | | | AM PDT | | | | +-------+ +--------+---+---+ | Given | 07/03/20 | 25 mcg | | | | | 16 8:37 | | | | | | AM PDT | | | | +-------+ +--------+---+---+ +---+---+ | | | +---+---+ + +-------+ +---------+---+---+ | iohexol (OMNIPAQUE 350) 350 | Given | 07/03/20 | 285 mLs | | | | mg/mL injection ONCE PRN, | | 16 9:24 | | | | | Starting Rufus 07/03/16 at 0924, | | AM PDT | | | | | Intra-op | | | | | | + +-------+ +---------+---+---+ +---+---+ | | | +---+---+ + +-------+ +-------+---+---+ | lidocaine buffered 1% injection | Given | 07/03/20 | 7 mLs | | | | ONCE PRN, Starting 07/03/16 | | 16 8:09 | | | | | at 0807, Intra-op | | AM PDT | | | | + +-------+ +-------+---+---+ +---+---+ | | | +---+---+ + +-------+ +--------+---+---+ | midazolam (VERSED) 1 mg/mL | Given | 07/03/20 | 0.5 mg | | | | injection ONCE PRN, Starting Sun | | 16 9:15 | | | | | 07/03/16 at 0808, Intra-op | | AM PDT | | | | + +-------+ +--------+---+---+ +-------+ +--------+---+---+ | Given | 07/03/20 | 0.5 mg | | | | | 16 8:41 | | | | | | AM PDT | | | | +-------+ +--------+---+---+ | Given | 07/03/20 | 0.5 mg | | | | | 16 8:38 | | | | | | AM PDT | | | | +-------+ +--------+---+---+ +---+---+ | | | +---+---+ + +-------+ +---------+---+---+ | niCARdipine in dextrose | Given | 07/03/20 | 400 mcg | | | | (CARDENE) 0.2 mg/ml syringe ONCE | | 16 9:05 | | | | | PRN, Starting 07/03/16 at | | AM PDT | | | | | 0905, Intra-op | | | | | | + +-------+ +---------+---+---+ +---+---+ | | | +---+---+ + + + +---------+---------+---+ | nitroglycerin in dextrose 100 | Rate/Dos | 07/03/20 | 15 | 9 mL/hr | | | mcg/mL infusion CONTINUOUS PRN, | e Change | 16 9:20 | mcg/min | | | | Starting 07/03/16 at 0854, | | AM PDT | | | | | Intra-op | | | | | | + + + +---------+---------+---+ + + +---------+---------+---+ | Rate/Dose Change | 07/03/20 | 10 | 6 mL/hr | | | | 16 9:06 | mcg/min | | | | | AM PDT | | | | + + +---------+---------+---+ | New Bag | 07/03/20 | 5 | 3 mL/hr | | | | 16 8:54 | mcg/min | | | | | AM PDT | | | | + + +---------+---------+---+ +---+---+ | | | +---+---+ documented in this encounter
--- OUTSIDE RECORDS SUMMARY | ~2020-07-10 | XMS | Encounter Summary ---
Demographics + + + | Address | [address] | | | [place] [address] | + + + | Home Phone | | + + + | Preferred Language | Unknown | + + + | Marital Status | | + + + | Worship Affiliation | Unknown | + + + | Race | White | + + + | Ethnic Group | Not or | + + + Author + + + | Author | [facility] | | | and [place] | + + + | Organization | [facility] | | | [...] [place] | | | | | [address] | | + + + + + | Roselia Hayes | ECON | Unknown | | + + + + + Care Team Providers + +------+ + | Care Drafting Layout Worker Name | Role | Phone | [...] Description | +--------+---------+ + + + | 12/06/ | Office | [facility] | Franck Tsai MD | Atherosclerosis of | | 2019 | Visit | CARDIOLOGY [address] | [address] | ekl[place]na coronary | | | | [place], | [place], [place] | artery of ekl[place] | | | | [place] [address] | [address] | heart without angina | | | | [phone] | | pectoris (Primary | | | [...] + + + | Blood Pressure | 98/64 | 12/06/2018 8:44 AM | | | | | PST | | + + + + + | Pulse | 60 | 12/06/2018 8:44 AM | | | | | PST | | + + + + + | Temperature | - | - | | + + + + + | Respiratory Rate | 14 | 12/06/2018 8:44 AM | | | | | PST | | + + + + + | Oxygen Saturation | - | - | | + + + + + | Inhaled Oxygen | - | - | | | Concentration | | | | + + + + + | Weight | 71 kg (156 lb 8.4 | 12/06/2018 8:44 AM | | | | oz) | PST | | + + + + + | Height | 170.2 cm (5' 7") | 12/06/2018 8:44 AM | | | | | PST | | + + + + + | Body Mass Index | 24.52 | 12/06/2018 8:44 AM | | | | | PST [...] documented as of this encounter Progress Notes Franck Tsai MD - 12/06/2018 9:00 AM PST PATIENT NAME: Lokesh Stark : 1940: AGE: 78 y.o. PRIMARY CARE: Cesar Ojeda MD CARDIOLOGY CLINIC PROGRESS NOTE Mr. Stark presents for clinic follow-up. Since his prior visit of 10/04/18, he developed s ymptoms of orthopnea, paroxysmal Lotrel dyspnea, and mild lower externally swelling in and was started on furosemide 20 mg daily and potassium chloride by his primary care phys nancy with resolution of those symptoms. He has had no complaints of angina. Basic metabol ic profile from 11/28/18: Sodium 141 potassium 3.9 BUN 14 creatinine 0.98. MEDICATIONS: Current Outpatient Prescriptions Medication Sig Dispense [...] tablet Take 300 mg x 1 on 1214 pm then take 75 mg daily 34 tablet 5 ferrous sulfate 325 mg tablet Take 325 mg by mouth daily (with breakfast). fish oil 1,000 mg capsule Take 1,000 mg by mouth 2 times daily. folic acid (FOLVITE) 400 MCG tablet Take 400 mcg by mouth Daily. furosemide (LASIX) 20 mg tablet lisinopril (PRINIVIL, ZESTRIL) 20 mg tablet Take 20 mg by mouth Daily. metFORMIN (GLUCOPHAGE-XR) 500 mg 24 hr tablet Take 1,500 mg by mouth Daily. metoprolol succinate (TOPROL-XL) [...] 99 ONETOUCH DELICA LANCETS FINE MISC 99 potassium chloride (KLOR-CON) 10 mEq CR tablet No current facility-administered medications for this visit. ALLERGIES Allergies Allergen Reactions Aspartame Hives and Nausea And Vomiting Cat Hair Extract Sensitivity Itching eye, runny nose Vegetable Oil Sensitivity Severe congestion Penicillins Other (See Comments) "I went numb all over after an injection" PHYSICAL EXAM Vital signs: Vitals: 12/06/18 0844 BP: 98/64 Pulse: 60 Resp: 14 Admit Weight: Weight: 71 kg (156 lb 8.4 oz) Current weight: Weight: 71 kg (156 lb 8.4 o z) Body mass index is 24.52 kg/m. General: Alert, resting comfortably Chest: Clear Cardiovascular: Nondisplaced apical impulse, regular rhythm, normal S1 and S2, S4 present, no S3, jugular venous pressure normal Gastrointestinal: Abdomen soft, non-tender, [...] Lateral leads Confirmed by GARRETT KRUGER MD ([id number]) on 07/05/2018 7:37:01 PM IMAGING: No results found. DIAGNOSES AND ASSESSMENTS: 1. Congestive heart failure: The patient had recent symptoms consistent with congestive hea rt failure that improved with low-dose furosemide. The patient's ventricular ejection fract ion was estimated at 45% on transthoracic echo from May 2018. The pierced to be well com pensated from a cardiac viewpoint 2. 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 Dyslipidemia: LDL cholesterol October PLAN OR RECOMMENDATIONS: BMP within 3 months through primary care physician office Continue weighing at home, monitoring blood pressure Clinic follow-up 6 months or sooner as needed I appreciate the opportunity of participating in the care of this patient. Franck Tsai MD,[facility], 12/06/2018 15:37 documented in this enc ounter Plan of Treatment Not on filedocumented as of this encounter Procedures + +--------+ + + + | Procedure Name | Priori | Date/Time | Associated Diagnosis | Comments | | | ty | | | | + +--------+ + + + | LABS - EXTERNAL SCAN | | 11/28/2018 | | Results for this | | | | 12:00 AM | | procedure are in the | | | | PST | | results section. | + +--------+ + + + documented in this encounter Results LABS - EXTERNAL SCAN (11/28/2018 12:00 AM PST) + + + | Narrative | Performed At | + + + | Ordered by an | | | unspecified provider. | | + + + documented in this encounter Visit Diagnoses + + | Diagnosis | + + | Atherosclerosis of [place]kl[place] coronary artery of [place]kl[place] heart without angina pectoris - | | Primary | + + documented in this encounter
--- OUTSIDE RECORDS SUMMARY | ~2020-07-10 | XMS | Encounter Summary ---
Demographics + + + | Address | [address] | | | [place] [address] | + + + | Home Phone | | + + + | Preferred Language | Unknown | + + + | Marital Status | | + + + | Lutheran Affiliation | Unknown | + + + | Race | White | + + + | Ethnic Group | Not or | + + + Author + + + | Author | [facility] | | | and [place] | + + + | Organization | [facility] | | | [...] [place] | | | | | [address] | | + + + + + | Roselia Hayes | ECON | Unknown | | + + + + + Care Team Providers + +------+ + | Care Campaign Director Name | Role | Phone | [...] Description | +--------+---------+ + + + | 11/07/ | Office | [facility] | Franck Tsai MD | Atherosclerosis of | | 2020 | Visit | CARDIOLOGY [address] | algaaciq coronary | | | | [place], | [place], [place] | artery of algaaciq | | | | [place] [address] | [address] | heart without angina | | | | [phone] | | pectoris (Primary | | | [...] documented as of this encounter Progress Notes rFanck Tsai MD - 11/07/2019 9:30 AM PST PATIENT NAME: Lokesh Stark : 1940: AGE: 79 y.o. PRIMARY CARE: Cesar Ojeda MD CARDIOLOGY CLINIC PROGRESS NOTE Mr. Stark presents for clinic follow-up. Since his visit of 04/17/19, he is doing well fro m a cardiac viewpoint without complaints of chest pain. He does mild to moderate activity w ithout limitation. Lipid profile dated 08/13/19: LDL cholesterol 27 potassium 3.9 creatinin e 1.13. He continues on dual antiplatelet therapy indefinitely due to previous in-stent thr ombosis. MEDICATIONS: Current Outpatient Medications Medication Sig Dispense Refill artificial tears (REFRESH [...] tablet by mouth Daily. 90 tablet 1 ferrous sulfate 325 mg tablet Take 325 mg by mouth daily (with breakfast). fish oil 1,000 mg capsule Take 1,000 mg by mouth 2 times daily. folic acid (FOLVITE) 400 MCG tablet Take 400 mcg by mouth Daily. furosemide (LASIX) 20 mg tablet Take 20 mg by mouth Daily. lisinopril (PRINIVIL, ZESTRIL) 20 mg tablet Take 1 tablet by mouth Daily. 90 tablet 1 metFORMIN (GLUCOPHAGE-XR) 500 mg 24 hr tablet Take by mouth Daily. Takes 1000 mg in th e am and 500 mg in the pm metoprolol succinate (TOPROL-XL) 25 mg 24 hr tablet Take 1 tablet by mouth Daily. 30 ta blet 0 Multiple Vitamins-Minerals (CENTRUM SILVER ULTRA MENS) TABS Take 1 tablet by mouth Dave y. nitroglycerin (NITROSTAT) 0.4 mg SL tablet Take one tablet under tongue as needed for c hest pain, may repeat every 5 minutes up to 3 doses. If no relief after 3rd dose, call 911. 25 tablet 11 omeprazole (PRILOSEC) 20 mg capsule Take 20 mg by mouth every morning (before breakfast ). ONE TOUCH ULTRA TEST strip 99 ONETOUCH DELICA LANCETS FINE MISC 99 potassium chloride (KLOR-CON) 10 mEq CR tablet Take 10 mEq by mouth Daily. No current facility-administered medications for this visit. ALLERGIES Allergies Allergen Reactions Aspartame Hives and Nausea And Vomiting Penicillins Other (See Comments) "I went numb all over after an injection" Canola Oil [Vegetable Oil] Sensitivity Severe congestion Cats [Cat Hair Extract] Sensitivity Itching eye, runny nose PHYSICAL EXAM Vital signs: Vitals: 11/07/19 0925 BP: 138/64 Pulse: 60 Resp: 16 Admit Weight: Weight: 72 kg (158 lb 11.7 oz) Current weight: Weight: 72 kg (158 lb 11.7 oz) Body mass index is 24.86 kg/m. General: Alert, resting comfortably Chest: Clear Cardiovascular: Nondisplaced apical impulse, regular rhythm, no S3 Gastrointestinal: Abdomen soft, non-tender, normal bowel sounds, no organomegaly nor masses . Extremities: No edema Neuro: within normal LABS: Abstract on 11/05/2019 Component Date Value Ref Range Status Creatinine, External 08/13/2019 1.13 0.7 - 1.18 Final eGFR, External 08/13/2019 63 Final LDL Cholesterol, Direct, External 08/13/2019 27 Final Cholesterol, Total, External 08/13/2019 87 mg/dl Final HDL Cholesterol, External 08/13/2019 33.6 mg/dl Final Triglycerides, External 08/13/2019 134 30 - 150 Final Sodium, External 08/13/2019 144* 132 - 143 Final Potassium, External 08/13/2019 3.9 3.6 - 5.1 Final Chloride, External 08/13/2019 109 95 - 112 Final Carbon Dioxide, External 08/13/2019 24 19 - 31 Final Calcium, External 08/13/2019 9.2 8.5 - 10.3 Final Magnesium, External 08/13/2019 1.3* 1.7 - 2.5 Final Protein, Total, External 08/13/2019 5.9* 6 - 8.3 Final Albumin, External 08/13/2019 3.7 3.5 - 5 Final Bilirubin, Total, External 08/13/2019 0.5 0 - 1.2 Final ALP, External 08/13/2019 65 31 - 120 Final AST, External 08/13/2019 28 7 - 52 Final ALT, External 08/13/2019 19 13 - 39 Final Glucose, External 08/13/2019 116* 70 - 100 Final BUN, External 08/13/2019 18 6 - 23 Final Hemoglobin A1c 08/13/2019 6.5 % Final Anion Gap 08/13/2019 15 7 - 21 mmol/L Final Urea Nitrogen Clearance 08/13/2019 18 6 23 Final BUN/Creatinine Ratio 08/13/2019 15.9 6.0 - 28.6 Final Globulin 08/13/2019 2.2 1.8 - 3.5 Final IMAGING: No results found. DIAGNOSES AND ASSESSMENTS: 1. Coronary atherosclerosis, status post RCA PCI May 2019, RCA PCI December 2016: Patient c ontinues on dual platelet therapy indefinitely 2. Dyslipidemia: LDL remains below target PLAN OR RECOMMENDATIONS: Whole food plant-based diet Aerobic activity Continue current medication Clinic follow-up 1 year or sooner as needed I appreciate the opportunity of participating in the care of this patient. Franck Tsai MD,[facility], 11/08/2019 12:45 PM documented in this enc ounter Plan of Treatment Not on filedocumented as of this encounter Visit Diagnoses + + | Diagnosis | + + | Atherosclerosis of algaaciq coronary artery of algaaciq heart without angina pectoris - | | Primary | + + documented in this encounter
--- OUTSIDE RECORDS SUMMARY | ~2020-07-10 | XMS | Encounter Summary ---
Demographics + + + | Address | [address] | | | [place] [address] | + + + | Home Phone | | + + + | Preferred Language | Unknown | + + + | Marital Status | | + + + | Yazidi Affiliation | Unknown | + + + | Race | White | + + + | Ethnic Group | Not or | + + + Author + + + | Author | [facility] | | | and [place] | + + + | Organization | [facility] | | | [...] [place] | | | | | [address] | | + + + + + | Roselia Hayes | ECON | Unknown | | + + + + + Care Team Providers + +------+ + | Care Shank Taper Name | Role | Phone | + [...] | | | | unspecified | | [address] | | | | | site (HCC) | | Phone: | | | | | Malignant | | [phone] | | | | | neoplasm of | | Fax: | | | | | urinary | | [phone] | | | | | bladder, | | | | | | | unspecified | | | | | | | site (HCC) | | | | | | | [C67.9] | | | | | | | Procedures | | | | | | | TURBT ND | | | | | | | CYSTOURETHRO | | | | | | | SCOPY,URETER | | | | | | | CATHETER | | | | | | | ND | | | | | | | [...] + + | 02/01/ | Anesthesia | [facility] | Sanjay Maldonado | | | 2019 | Event | MED CTR OR INTRA OP | MD [address] | | | | | [address] | [facility] | | | | | [place] | [place] [address] | | | | | [address] | [phone] | | | | | [phone] | | | +--------+ + + + [...] +----+---+ + + | | 1 | [place] | | | | 3 | 43-degrees [...] +----+---+ + + | | 1 | [place] off | | | | 3 | [...] 02/01/19 1604 by | | eral | [id number] catheter system; | Anahi Cantu, | Chioma Sanchez, | | IV | 20 gauge, 1 1/4 in length; | RN | TIME RECORDER | | | Coagulation; distraction, | | [...] | | +--------+ + + + | Wound | 02/01/19; 1353; Incision; | 02/01/19 1353 by | 10/11/19 1314 by | | | perineum; 10/11/19; 1314 | Junaid Gonzalez RN | Darron Carrington RN | +--------+ + + + documented in [...] encounter OR Notes Anesthesia Postprocedure Evaluation - Sanjay Maldonado MD - 02/01/2019 3:19 PM PDTFo rmatting of this note might be different from the original. ANESTHESIA POSTANESTHESIA EVALUATION Lokesh Stark 78 y.o. male 1940 [id number] Hemodynamically stable. No clinical signs of new or evolving ischemia. No anesthesia complications. Procedure(s) CYSTOSCOPY TRANS URETHRAL RESECTION BLADDER TUMOR W/ BILATERAL URETEROSCOPY (Bilateral Bladder) Cooperates? Yes Mental Status Performs simple tasks. Respiratory Satisfactory - Airway patent (self maintained). Cardiovascular Satisfactory - Blood pressure and heart rate acceptable Temperature Satisfactory Pain Satisfactory N/V Control Satisfactory Hydration Satisfactory - No signs of dehydration Complications None apparent Vitals Value Taken Time Temp 36.8 C (98.2 F) 02/01/2019 13:55 Pulse 60 02/01/2019 14:35 Resp 21 02/01/2019 14:21 BP 115/59 02/01/2019 14:31 Arterial Line BP Arterial Line BP 2 SpO2 93 % 02/01/2019 14:35 Vitals shown include unvalidated device data. Electronically signed by Sanjay Maldonado MD 02/01/2019 15:19 [facility] HEALTHElectronically signed by Sanjay Maldonado MD a t 02/01/2019 3:19 PM PDTAnesthesia Procedure Notes - Sanjay Maldonado MD - 02/01/2019 1:11 PM PDTAssociated Order(s): AirwayAnesthesia Airway Placement 02/01/2019 13:04 Preprocedure check: patient identified, oxygen, airway assessed, suction, airway equipment checked and patient reassessment prior to induction Mask ventilation: easy with oral airway (Upper and lower dentures previously removed) Attempts: 1 Airway type: laryngeal mask Size: 4 Cuffed: cuffed Route, reference point: center of mouth Tube secured with: adhesive tape Trauma: none Tube placement verification: bilateral chest rise, equal bilateral breath sounds and carbon dioxide detection Performing provider: Sanjay Maldonado MD Comments: Atraumatic LMA placement with quality seat and seal. Please see intraoperative grid for any additional medication documentation. nesthesia Prep rocedure Evaluation - Sanjay Maldonado MD - 02/01/2019 12:52 PM PDT ANESTHESIA PREANESTHESIA EVALUATION Lokesh Stark 78 y.o. male 1940 [id number] Procedure(s): CYSTOSCOPY TRANS URETHRAL RESECTION BLADDER TUMOR with RETROAGRADE PYELOGRAPH Y (N/A Bladder) Medical,anesthesia, drug, allergy histories reviewed, NPO status verified. ECG reviewed. Labs reviewed. (+) perioperative beta-lenny/statin given/taken. . Review of Systems / Med History Anesthesia History Previous EZ #4 LMA and EZ intubation with past surgeries. (-) PONV, difficult intubation. Cardiovascular Cath 05/2018: 1. Total thrombotic occlusion of proximal right posterior descending artery within previ ously placed stents beyond anastomosis of saphenous vein graft 2. Patent saphenous vein graft to distal right coronary artery with mild mid graft disea se 3. Patent saphenous vein graft to first diagonal branch of LAD with mild mid graft disea se and moderate first diagonal branch disease 4. Patent left internal mammary artery to distal LAD with mild distal LAD luminal irregu larities 5. Known prior distal left main and proximal RCA occlusion, these vessels were not image d during the study 6. Intracoronary ultrasound of right posterior sending artery in-stent thrombotic occlus ion 7. Aspiration thrombectomy of right posterior descending artery 8. PTCA of right posterior descending artery stents with flaring of proximal stent withi n distal saphenous vein graft anastomosis 9. Known prior occlusion of saphenous vein graft to ramus branch Cath 06/2016 after NSTEMI the same month: CONCLUSIONS: 1. S/P bare metal stent of the PDA via the RCA graft 2. 100% SVG to the LCX 3. Total occlusion of the [place] circulation 4. Patent MARY to the LAD 5. SVG to the Diagonal: Excellent graft. Feeds the diagonal antegrade and the proximal LAD retrograde. competitive flow from MARY to the distal vessel 6. SVG to the PDA: Excellent graft. 99% stenosis of the PDA just beyond the insertion of the graft ECHO 05/2018: 1. Borderline increased left ventricular chamber diameter with normal wall thickness 2. Mild left ventricular systolic dysfunction with regional wall motion abnormality 3. Moderate mitral valve regurgitation 4. Mild pulmonary arterial hypertension 5. Aortic valve sclerosis 6. Moderate left atrial chamber enlargement 7. When compared with prior echocardiogram of 12/27/16, left ventricular systolic functi on is reduced, and the inferior wall motion abnormalities are new Continues on dual antiplatelet therapy.. (+) catheterization (angioplasty to RPDA 05/2018) , Exercise tolerance >4 METS (+) hypertens ion (On ACEi), (+) coronary artery disease (On ASA, Plavix). (-) angina. (+) past myocardial infarction. (+) CABG. . Pulmonary (+) tobacco use. Gastrointestinal/Hepatic (+) hypercholesterolemia. (+) acid reflux. Renal Lab Results Component Value Date CREA 0.95 07/04/2016 BUN 15 07/04/2016 NA 141 07/04/2016 K 3.3* 07/04/2016 CL 108 07/04/2016 CO2 23* 07/04/2016 . Endocrine CBG 141 in pre-op . (+) Diabetes: type 2. Hematology/Other Lab Results Component Value Date WBC 9.7 07/04/2016 HGB 14.3 07/04/2016 HCT 42.5 07/04/2016 MCV 84.5 07/04/2016 PLT 190 07/04/2016 . (+) coagulopathy (On plavix as outpt - held for procedure). Cancer (+) bladder cancer. Neurology Negative except where noted below. Psychology Negative except where noted below. Physical Exam Airway MP I, TM >3 FB, Mouth opening >2 FB. Neck: full ROM, extends >30 degrees. Dental ; (+) dentures-lower and dentures-upper. CV Rhythm regular. Rate Normal. (-) murmur. Pulm Clear to auscultation bilaterally. Neuro Grossly normal. Other Well healed sternotomy scar Anesthesia Plan ASA 3 (CAD with previous MA, On dual anti-platelet therapy) Type: General. Induction: Intravenous. Potential problems: None anticipated. Monitors: Standard ASA monitors. Consent statement:Anesthetic plan, alternatives, risks and benefits discussed with patient and spouse. Risks discussed included (but were not limited to): sore throat, nausea, heart problems, re spiratory events, pain, perioperative CV events, dental injury, post-op intubation, voice in jury, delirium,. Consenting person understands and agrees to proceed . PARQ. Lengthy discussion regarding his increased cardiac risk factors and risk for bleeding give n his dual antiplatelet therapy (but has held plavix appropriately). Discussed risk of stent thrombosis while being off of this therapy (same as last time) and patient still wishes to proceed accepting these cardiac risks.. Electronically Signed by: Sanjay Maldonado MD ESig date/time: 01/31/2019 21:22 documented in t his encounter Plan of Treatment Not on filedocumented as of this encounter Procedures + +--------+ + + + | Procedure Name | Priori | Date/Time | Associated Diagnosis | Comments | | | ty | | | | + +--------+ + + + | ANE AIRWAY NOTE | Routin | 02/01/2019 | | Results for this | | | e | 1:11 PM | | procedure are in the | | | | PDT | | results section. | + +--------+ + + + documented in this encounter Results Airway (02/01/2019 1:11 PM PDT) + + + | Narrative | Performed At | + + + | Sanjay Maldonado MD 02/01/2019 13:11 Anesthesia Airway | | | Placement 02/01/2019 13:04 Preprocedure check: patient identified, | | | oxygen, airway assessed, suction, airway equipment checked and | | | patient reassessment prior to induction Mask ventilation: easy with | | | oral airway (Upper and lower dentures previously [...] + | Sanjay Maldonado MD - 02/01/2019 1:11 PM PDT Anesthesia Airway | | Placement02/01/2019 13:04Preprocedure check: patient identified, oxygen, airway assessed, | | suction, airway equipment checked and patient reassessment prior to inductionMask | | ventilation: easy with oral airway (Upper and lower dentures previously | | removed)Attempts: 1Airway type: laryngeal maskSize: 4Cuffed: cuffedRoute, reference | | point: center of mouthTube secured with: adhesive tapeTrauma: noneTube placement | | verification: bilateral chest rise, equal bilateral breath sounds and carbon dioxide | | detectionPerforming provider: JEISON Lezamaomments: Atraumatic LMA placement | | with quality seat and seal.Please see intraoperative grid for any additional medication | | documentation. | |Tube secured with: adhesive tape | [...] | injection Intravenous, PRN, | | 19 1:02 | | | | | Starting Mon02/01/19 at 1302, | | PM PDT | | | | | Anesthesia Intra-op | | | | | | + +--------+ +------+------+------+ +---+---+ | | | +---+---+ + +-------+ +------+---+---+ | ePHEDrine (AKOVAZ) 50 mg/mL | Given | 02/02/20 | 5 mg | | | | injection Intravenous, PRN, | | 19 1:33 | | | | | Starting 02/01/19 at 1307, | | PM PDT | | | | | Anesthesia Intra-op | | | | | | + +-------+ +------+---+---+ +-------+ +-------+---+---+ | Given | 02/02/20 | 5 mg | | | | | 19 1:26 | | | | | | PM PDT | | | | +-------+ +-------+---+---+ | Given | 02/02/20 | 10 mg | | | | | 19 1:07 | | | | | | PM PDT | | | | +-------+ +-------+---+---+ +---+---+ | | | +---+---+ + +-------+ +--------+---+---+ | fentaNYL (PF) injection | Given | 02/02/20 | 25 mcg | | | | Intravenous, PRN, Starting Fri | | 19 1:20 | | | | | 02/01/19 at 1300, Anesthesia | | PM PDT | | | | | Intra-op | | | | | | + +-------+ +--------+---+---+ +-------+ +--------+---+---+ | Given | 02/02/20 | 25 mcg | | | | | 19 1:18 | | | | | | PM PDT | | | | +-------+ +--------+---+---+ | Given | 02/02/20 | 50 mcg | | | | | 19 1:00 | | | | | | PM PDT | | | | +-------+ +--------+---+---+ +---+---+ | | | +---+---+ + +-------+ +--------+---+---+ | lidocaine (PF) 2% injection | Given | 02/02/20 | 100 mg | | | | Intravenous, PRN, Starting Fri | | 19 1:02 | | | | | 02/01/19 at 1302, Anesthesia | | PM PDT | | | | | Intra-op | | | | | | + +-------+ +--------+---+---+ +---+---+ | | | +---+---+ + +-------+ +------+---+---+ | ondansetron (ZOFRAN) injection | Given | 02/02/20 | 4 mg | | | | Intravenous, PRN, Starting Fri | | 19 1:02 | | | | | 02/01/19 at 1302, Anesthesia | | PM PDT | | | | | Intra-op | | | | | | + +-------+ +------+---+---+ +---+---+ | | | +---+---+ + +-------+ +---------+---+---+ | phenylephrine (NOLVIA-SYNEPHRINE) | Given | 02/02/20 | 100 mcg | | | | 100 mcg/mL injection | | 19 1:02 | | | | | Intravenous, PRN, Starting Fri | | PM PDT | | | | | 02/01/19 at 1302, Anesthesia | | | | | | | Intra-op | | | | | | + +-------+ +---------+---+---+ +---+---+ | | | +---+---+ + +-------+ +-------+---+---+ | propofol (DIPRIVAN) injection | Given | 02/02/20 | 50 mg | | | | Intravenous, PRN, Starting Fri | | 19 1:18 | | | | | 02/01/19 at 1302, Anesthesia | | PM PDT | | | | | Intra-op | | | | | | + +-------+ +-------+---+---+ +-------+ +--------+---+---+ | Given | 02/02/20 | 30 mg | | | | | 19 1:03 | | | | | | PM PDT | | | | +-------+ +--------+---+---+ | Given | 02/02/20 | 170 mg | | | | | 19 1:02 | | | | | | PM PDT | | | | +-------+ +--------+---+---+ +---+---+ | | | +---+---+ documented in this encounter"
--- OUTSIDE RECORDS SUMMARY | ~2020-07-10 | XMS | Encounter Summary ---
Demographics + + + | Address | [address] | | | [place] [address] | + + + | Home Phone | | + + + | Preferred Language | Unknown | + + + | Marital Status | | + + + | Restoration Affiliation | Unknown | + + + | Race | White | + + + | Ethnic Group | Not or | + + + Author + + + | Author | [facility] | | | and [place] | + + + | Organization | [facility] | | | and [...] [place] | | | | | [address] | | + + + + + | Roselia Hayes | ECON | Unknown | | + + + + + Care Team Providers + +------+ + | Care Bilingual Operator Name | Role | Phone | + +------+ + | Cesar Ojeda MD | PCP | | + +------+ + Reason for Visit +--------+--------+ + | Reason | Onset | Comments | | | Date | | +--------+--------+ + | Other | 10/27/ | hold of plavix | | | 2016 | | +--------+--------+ + Encounter Details +--------+ + + + + | Date | Type | Department | Care Team | Description | +--------+ + + + + | 10/27/ | Telephone | [facility] | Mi Mulligan, | Other (hold of | | 2016 | | CARDIOLOGY [address] | MD [address] | plavix) | | | | [place], | [place] | | | | | [place] [address] | [phone] | | | | | [phone] | | | +--------+ + + + [...] Telephone Encounter - Priscilla Durant RN - 10/27/2016 3:33 PM PST Priscilla, Please tell him I talked to Dr Romero and they want him to stop the clopidogrel a week b efore the visit on the . He should stop on the October. Ese George, notified ...........................................Priscilla Durant RN on 10/27/16 at 15:33 documented in this encounter Plan of Treatment Not on filedocumented as of this encounter Visit Diagnoses Not on filedocumented in this encounter"
--- OUTSIDE RECORDS SUMMARY | ~2020-07-10 | XMS | Encounter Summary ---
Demographics + + + | Address | [address] | | | [place] [address] | + + + | Home Phone | | + + + | Preferred Language | Unknown | + + + | Marital Status | | + + + | Religion Affiliation | Unknown | + + + | Race | White | + + + | Ethnic Group | Not or | + + + Author + + + | Author | [facility] | | | and [place] | + + + | Organization | [facility] | | [...] [place] | | | | | [address] | | + + + + + | Roselia Hayes | ECON | Unknown | | + + + + + Care Team Providers + +------+ + | Care Torch Cutter Name | Role | Phone | + +------+ + PCP | Unavailable | + +------+ + Encounter Details +--------+ + + + + | Date | Type | Department | Care Team | Description | +--------+ + + + + | 08/30/ | Hospital | [facility] | Conversion | CORONARY ATHEROSCLER | | 2003 | Encounter | CONVERSION [address] | Transaction, | [address] | | | | [address] | Provider Unknown | | | | | [place], [place] | [phone] | | | | | [address] | | | | | | [phone] | | | +--------+ + + + [...] Diagnosis | + + | Coronary atherosclerosis of unspecified type of vessel, saxman or graft | + + documented in this encounter"
--- OUTSIDE RECORDS SUMMARY | ~2020-07-10 | XMS | Encounter Summary ---
Demographics + + + | Address | [address] | | | [place] [address] | + + + | Home Phone | | + + + | Preferred Language | Unknown | + + + | Marital Status | | + + + | Roman Catholic Affiliation | Unknown | + + + | Race | White | + + + | Ethnic Group | Not or | + + + Author + + + | Author | [facility] | | | and [place] | + + + | Organization | [facility] | | [...] [place] | | | | | [address] | | + + + + + | Roselia Hayes | ECON | Unknown | | + + + + + Care Team Providers + +------+ + | Care Inspector Final Assembly Electrical Name | Role | Phone | + +------+ + | Cesar Ojeda MD | PCP | | + +------+ + Reason for Visit + +--------+ + | Reason | Onset | Comments | | | Date | | + +--------+ + | Records Request | 07/06/ | | | | 2015 | | + +--------+ + Encounter Details +--------+ + + + + | Date | Type | Department | Care Team | Description | +--------+ + + + + | 07/06/ | Telephone | [facility] | Cesar Ojeda | Records Request | | 2015 | | CARDIOLOGY [address] | [address] | | | | | [place], | [place] | | | | | [place] [address] | [place] [address] | | | | | [phone] | [phone] | | | | | | | [...] Telephone Encounter - Heaven Faria - 07/06/2016 2:59 PM PDTFaxed records request to P office (Cesar Ojeda MD) to fax number [phone]. documented in this encounter Plan of Treatment Not on filedocumented as of this encounter Visit Diagnoses Not on filedocumented in this encounter"
--- OUTSIDE RECORDS SUMMARY | ~2020-07-10 | XMS | Encounter Summary ---
Demographics + + + | Address | [address] | | | [place] [address] | + + + | Home Phone | | + + + | Preferred Language | Unknown | + + + | Marital Status | | + + + | Yazdanism Affiliation | Unknown | + + + | Race | White | + + + | Ethnic Group | Not or | + + + Author + + + | Author | [facility] | | | and [place] | + + + | Organization | [facility] | | | [...] [place] | | | | | [address] | | + + + + + | Roselia Hayes | ECON | Unknown | | + + + + + Care Team Providers + +------+ + | Care Corporate Officer Name | Role | Phone | + +------+ + PCP | Unavailable | + +------+ + Encounter Details +--------+ + + + + | Date | Type | Department | Care Team | Description | +--------+ + + + + | 08/12/ | Hospital | [facility] | Rizwan-Omer, | CORON ATHEROSCL | | 2003 - | Encounter | [facility] | MD [address] | [address] CORON VESSEL | | | | CARE FLO[address] | [facility] [address] | | | 08/19/ | | [address] | [place], [place] | | | 2003 | | [place], [place] | [phone] | | | | | [address] | | | | | | [phone] | | | +--------+ + + + [...] | + + | Coronary atherosclerosis of [place] coronary artery | + + documented in this encounter"
--- OUTSIDE RECORDS SUMMARY | ~2020-07-10 | XMS | Encounter Summary ---
Demographics + + + | Address | [address] | | | [place] [address] | + + + | Home Phone | | + + + | Preferred Language | Unknown | + + + | Marital Status | | + + + | Jew Affiliation | Unknown | + + + [...] [place] | | | | | [address] | | + + + + + | Roselia Hayes | ECON | Unknown | | + + + + + Care Team Providers + +------+ + | Care Clinical Informatics Educator Name | Role | Phone | + [...] [address] | | | | | [place], | [place], [place] | | | | | [place] [address] | [address] | | | | | [phone] | | | +--------+ + + + [...] Lipid Panel (11/01/2017) + +---------+ + + + | Component | Value | Ref Range | Performed | Pathologist | | | | | At | Signature | + +---------+ + + + | VLDL | 3.6 (A) | 4 - 40 | | | | Cholesterol | | | | | | [place] | | | | | + +---------+ + + + | Chol/HDL | | | | | | Ratio | | | | | + +---------+ + + + + + | Specimen | + + | Blood | + + documented in this encounter Visit Diagnoses Not on filedocumented in this encounter"
--- OUTSIDE RECORDS SUMMARY | ~2020-07-10 | XMS | Encounter Summary ---
Demographics + + + | Address | [address] | | | [place] [address] | + + + | Home Phone | | + + + | Preferred Language | Unknown | + + + | Marital Status | | + + + | Orthodox Affiliation | Unknown | + + + | Race | White | + + + | Ethnic Group | Not or | + + + Author + + + | Author | [facility] | | | and [place] | + + + | Organization | [facility] | | | and [...] [place] | | | | | [address] | | + + + + + | Roselia Hayes | ECON | Unknown | | + + + + + Care Team Providers + +------+ + | Care Turbine Inspector Name | Role | Phone | + +------+ + | Cesar Ojeda MD | PCP | | + +------+ + Encounter Details +--------+ + + + + | Date | Type | Department | Care Team | Description | +--------+ + + + + | 12/02/ Anesthesia | [facility] | Sanjay Maldonado | | | 2017 | Event | [facility] | MD Selvin [address] | | | | | [address] | [address] [place] | | | | | [place], [place] | [place] [address] | | | | | [address] | [phone] | | | | | [phone] | | | +--------+ + + + + Anesthesia Record + + + + + | Procedure Name | Responsible | Anesthesia Start | Anesthesia Stop Time | | | Anesthesiologist | Time | | + + + + + | Cyber Laser Prostate | Sanjay Zavaleta | 12/02/16 1050 | 12/02/16 1159 | | Vaporization, | MD Joel | | | | T.U.R. Bladder Tumor | | | | | (N/A Bladder) | | | | + + + + + +----+---+ + + | Da | T | Event | Comment | | te | i | | | | | m | | | | | e | | | +----+---+ + + | 02 | 0 | | | | /1 | 8 | | | | 0/ | 3 | | | | 20 | 3 | | | | 17 | | | | +----+---+ + + | | 0 | Antibiotic | PO cipro given in pre-op | | | 9 | Given | | | | 3 | | | | | 6 | | | +----+---+ + + | | 1 | An Checkout | Pre-use anesthesia machine/equipment checkout. | | | 0 | | | | | 4 | | | | | 7 | | | +----+---+ + + | | 1 | An Start | Reassessment prior to anesthesia induction/procedure. | | | 0 | | | | | 5 | | | | | 0 | | | +----+---+ + + | | 1 | Quick Note | ST depressions noted on baseline EKG. Strip printed | | | 0 | | | | | 5 | | | | | 2 | | | +----+---+ + + | | 1 | Preoxygenat | | | | 0 | ed | | | | 5 | | | | | 3 | | | +----+---+ + + | | 1 | An | | | | 0 | Induction | | | | 5 | | | | | 5 | | | +----+---+ + + | | 1 | An | | | | 0 | Intubation | | | | 5 | | | | | 7 | | | +----+---+ + + | | 1 | Breathing | | | | 0 | Spontaneous | | | | 5 | ly | | | | 7 | | | +----+---+ + + | | 1 | Avalon | | | | 1 | 43-degrees | | | | 0 | | | | | 1 | | | +----+---+ + + | | 1 | Pre-Procedu | | | | 1 | ral Timeout | | | | 0 | Completed | | | | 3 | | | +----+---+ + + | | 1 | First | | | | 1 | Inc/Proc St | | | | 0 | | | | | 4 | | | +----+---+ + + | | 1 | An Patient | | | | 1 | Move | | | | 0 | | | | | 8 | | | +----+---+ + + | | 1 | Avalon off | | | | 1 | | | | | 5 | | | | | 2 | | | +----+---+ + + | | 1 | Moving | | | | 1 | Purposefull | | | | 5 | y | | | | 2 | | | +----+---+ + + | | 1 | an stop | | | | 1 | data | | | | 5 | | | | | 2 | | | +----+---+ + + | | 1 | Extubated | | | | 1 | Awake | | | | 5 | | | | | 6 | | | +----+---+ + + | | 1 | An Stop | Patient handed off to recovery nurse. | | | 5 | | | | | 9 | | | +----+---+ + + +------+ | Meds | +------+ + +---------+ | Name | Total | + +---------+ | fentaNYL | 200 mcg | + +---------+ | lidocaine 2% | 70 mg | + +---------+ | propofol (DIPRIVAN) injection | 170 mg | | (bolus) (20 mL) | | + +---------+ | Phenylephrine 100mcg/mL SYRINGE | 150 mcg | + +---------+ | ePHEDrine | 15 mg | + +---------+ | dexamethasone | 5 mg | + +---------+ | ondansetron | 4 mg | + +---------+ | ketamine | 25 mg | + +---------+ | lactated ringers [...] +--------+ + + + | Periph | 12/02/16; 0832; Left; Posterior | 12/02/16 0832 by | 12/02/16 1400 by | | eral | (dorsal); Hand; [id number] | Odette Rocha, | Roxane Lopez, | | IV | catheter system; 20 gauge, 1 10/26 | RN | RN | | | in length; Chemistry; intradermal | | | | | injection; no longer indicated, | | | | | removed per policy/procedure; | | | | | 12/02/16; 1400 | | | +--------+ + + + | Airway | Placement Date: 12/02/16; | 12/02/16 1106 by | 12/02/16 1156 by | | | Placement Time: 1106 (created via | Sanjay Zavaleta | Sanjay Zavaleta | | | procedure documentation); | MD Joel | MD Joel | | | Attempts: 1; Airway Type: | | | | | laryngeal mask; Size: 4; Trauma: | | | | | none; Placement Check: exhaled | | | | | CO2 detection device, bilateral | | | | | chest rise, breath sounds equal | | | | | bilaterally; Removal Date: | | | | | 12/02/16; Removal Time: 1156; | | | | | Additional Comments: Dentures | | | | | removed before airway | | | | | manipulation. Atraumatic LMA | | | | | placement with quality seat and | | | | | seal. Atraumatic airway | | | | | manipulation. | | | +--------+ + + + [...] Postprocedure Evaluation - Sanjay Maldonado MD - 12/02/2016 12:13 PM PSTFo rmatting of this note might be different from the original. ANESTHESIA POSTANESTHESIA EVALUATION Lokesh Stark 76 y.o. male 1940 [id number] Awake and alert, hemodynamically stable. No anesthesia complications. Procedure(s) Cyber Laser Prostate Vaporization, T.U.R. Bladder Tumor (N/A Bladder) Cooperates? Yes Mental Status Performs simple tasks. Respiratory Satisfactory - Airway patent (self maintained). Cardiovascular Satisfactory Blood pressure and heart rate acceptable Temperature Satisfactory Pain Satisfactory N/V Control Satisfactory Hydration Satisfactory No signs of dehydration Complications None apparent Filed Vitals: 12/02/16 1156 12/02/16 1200 12/02/16 1205 BP: 166/90 154/76 127/100 Pulse: 103 101 84 Temp: 36 C (96.8 F) Resp: 18 24 17 SpO2: 95% 96% 99% Electronically signed by Sanjay Maldonado MD 12/02/2016 12:13 [facility] nesthesia Proc edure Notes - Sanjay Maldonado MD - 12/02/2016 11:06 AM PSTAssociated Order(s): ALESSANDRA STEPHANY PONCE NOTEAnesthesia Airway Placement Preprocedure check: patient identified, oxygen, airway assessed, suction, airway equipment checked and patient reassessment prior to induction Attempts: 1 Airway type: laryngeal mask Size: 4 Cuffed: cuffed Route, reference point: center of mouth Tube secured with: adhesive tape Trauma: none Tube placement verification: bilateral chest rise, equal bilateral breath sounds and carbon dioxide detection Performing provider: SANJAY MALDONADO Comments: Dentures removed before airway manipulation. Atraumatic LMA placement with quality seat and seal. Atraumatic airway manipulation. Electronically Signed by: Sanjay Maldonado MD ESig date/time: 07/2017 11:06 nesthesia Prep rocedure Evaluation - Sanjay Maldonado MD - 12/02/2016 8:38 AM PST ANESTHESIA PREANESTHESIA EVALUATION Lokesh Stark 76 y.o. male 1940 [id number] Procedure(s): Cyber Laser Prostate Vaporization, T.U.R. Bladder Tumor (N/A Bladder) Medical history, anesthesia, medications, allergy, NPO status verified histories reviewed. ECG reviewed. Labs reviewed. Review of Systems / Med History Anesthesia History Previous EZ #4 LMA and EZ intubation with past surgeries. (-) PONV, difficult intubation Cardiovascular Cath 06/2016 after NSTEMI the same month: CONCLUSIONS: 1. S/P bare metal stent of the PDA via the RCA graft 2. 100% SVG to the LCX 3. Total occlusion of the [place] circulation 4. Patent MARY to the LAD 5. SVG to the Diagonal: Excellent graft. Feeds the diagonal antegrade and the proximal LAD retrograde. competitive flow from MARY to the distal vessel 6. SVG to the PDA: Excellent graft. 99% stenosis of the PDA just beyond the insertion of the graft Followed by cardiology - last seen 10/27/16 with plan to hold plavix for urology procedure.. (+) hypertension (On ACEi), CAD (On ASA, Plavix), past SD (NTEMI 06/2016)(-) angina (Denies any recurrence of chest pain since his NSTEMI) , Exercise tolerance >4 METS Pulmonary (+) smoking history Neurology Negative except where noted below. Psychology Negative except where noted below. Renal Lab Results Component Value Date CREA 0.95 07/04/2016 BUN 15 07/04/2016 NA 141 07/04/2016 K 3.3* 07/04/2016 CL 108 07/04/2016 CO2 23* 07/04/2016 . Gastrointestinal/Hepatic (+) reflux/GERD, hyperlipidemia Endocrine CBG 141 in pre-op . (+) Diabetes: type 2, NIDDM Other Lab Results Component Value Date WBC 9.7 07/04/2016 HGB 14.3 07/04/2016 HCT 42.5 07/04/2016 MCV 84.5 07/04/2016 PLT 190 07/04/2016 . (+) coagulopathy (On plavix as outpt) Cancer (+) bladder cancer Physical Exam Airway MP I, TM >3 FB, Mouth opening >2 FB. Neck: full ROM, extends >30 degrees. Dental ; (+) dentures-lower and dentures-upper. CV Rhythm regular. Rate Normal. (-) murmur. Pulm Clear to auscultation bilaterally. Neuro Grossly normal. Other Well healed sternotomy scar Anesthesia Plan ASA 3 Type: General. Induction: Intravenous. Potential problems: None anticipated. Monitors: Standard ASA monitors. Consent statement:Anesthetic plan, alternatives, risks and benefits discussed with patient and spouse. Risks discussed included (but were not limited to): sore throat, nausea, heart problems, re spiratory events, pain, perioperative CV events, dental injury, post-op intubation, voice in jury, delirium, . Consenting person understands and agrees to proceed. PARQ. Discussed with Ivan and Guera his increased risk of cardiac events given his need to hold pl avix. Both acknowledged understanding and consent to GA with LMA.. Electronically Signed by: Sanjay Maldonado MD ESi date/time: 12/02/2016 11:11 documented in t his encounter Plan of Treatment Not on filedocumented as of this encounter Procedures + +--------+ + + + | Procedure Name | Priori | Date/Time | Associated Diagnosis | Comments | | | ty | | | | + +--------+ + + + | ANE AIRWAY NOTE | Routin | 12/02/2016 | | Results for this | | | e | 11:06 AM | | procedure are in the | | | | PST | | results section. | + +--------+ + + + documented in this encounter Results Anesthesia Airway Note (12/02/2016 11:06 AM PST) + + + | Narrative | Performed At | + + + | Sanjay Maldonado MD 12/02/2016 11:06 Anesthesia Airway | | | Placement Preprocedure check: patient identified, oxygen, airway | | | assessed, suction, airway equipment checked and patient reassessment | | | prior to induction Attempts: 1 Airway type: laryngeal mask Size: | | | 4 Cuffed: cuffed Route, reference point: center of mouth Tube | | | secured with: adhesive tape Trauma: none Tube placement | | | verification: bilateral chest rise, equal bilateral breath sounds | | | and carbon dioxide detection Performing provider: SANJAY MALDONADO | | | [place] Comments: Dentures removed before airway manipulation. | | | Atraumatic LMA placement with quality seat and seal. Atraumatic | | | airway manipulation. Electronically Signed by: Sanjay Maldonado | | | ESig date/time: | | | 12/02/2016 11:06 | | + + + documented in this encounter Visit Diagnoses Not on filedocumented in this encounter Administered Medications + +--------+ +------+------+------+ | Medication Order | MAR | Action | Dose | Rate | Site | | | Action | Date | | | | + +--------+ +------+------+------+ | dexamethasone (DECADRON) 10 | Given | 12/02/19 | 5 mg | | | | mg/mL injection Intravenous, | | 17 11:04 | | | | | PRN, Starting 12/02/16 at | | AM PST | | | | | 1104, Anesthesia Intra-op | | | | | | + +--------+ +------+------+------+ +---+---+ | | | +---+---+ + +-------+ +------+---+---+ | ePHEDrine 50 mg/mL injection | Given | 12/02/19 | 5 mg | | | | Intravenous, PRN, Starting Mon | | 11:38 | | | | | 12/02/16 at 1059, Anesthesia | | AM PST | | | | | Intra-op | | | | | | + +-------+ +------+---+---+ +-------+ +-------+---+---+ | Given | 12/02/19 | 10 mg | | | | | 17 10:59 | | | | | | AM PST | | | | +-------+ +-------+---+---+ +---+---+ | | | +---+---+ + +-------+ +--------+---+---+ | fentaNYL (PF) injection | Given | 12/02/19 | 25 mcg | | | | Intravenous, PRN, Pain, Starting | | 17 11:51 | | | | | 12/02/16 at 1053, Anesthesia | | AM PST | | | | | Intra-op | | | | | | + +-------+ +--------+---+---+ +-------+ +--------+---+---+ | Given | 12/02/19 | 25 mcg | | | | | 17 11:41 | | | | | | AM PST | | | | +-------+ +--------+---+---+ | Given | 12/02/19 | 25 mcg | | | | | 17 11:33 | | | | | | AM PST | | | | +-------+ +--------+---+---+ +---+---+ | | | +---+---+ + +-------+ +-------+---+---+ | ketamine 50 mg/mL injection | Given | 12/02/19 | 25 mg | | | | PRN, Starting Mon12/02/16 at | | 17 10:55 | | | | | 1055, Anesthesia Intra-op | | AM PST | [...] lidocaine (PF) 2% injection | Given | 12/02/19 | 70 mg | | | | Intravenous, PRN, Starting Fri | | 17 10:55 | | | | | 12/02/16 at 1055, Anesthesia | | AM PST | | | | | Intra-op | | | | | | + +-------+ +-------+---+---+ +---+---+ | | | +---+---+ + +-------+ +------+---+---+ | ondansetron (ZOFRAN) injection | Given | 12/02/19 | 4 mg | | | | Intravenous, PRN, Nausea, | | 17 11:04 | | | | | Vomiting, Starting 12/02/16 at | | AM PST | | | | | 1104, Anesthesia Intra-op | | | | | | + +-------+ +------+---+---+ +---+---+ | | | +---+---+ + +-------+ +--------+---+---+ | phenylephrine (NOLVIA-SYNEPHRINE) | Given | 12/02/19 | 50 mcg | | | | 100 mcg/mL injection | | 17 11:38 | | | | | Intravenous, PRN, Starting Fri | | AM PST | | | | | 12/02/16 at 1059, Anesthesia | | | | | | | Intra-op | | | | | | + +-------+ +--------+---+---+ +-------+ +---------+---+---+ | Given | 12/02/19 | 100 mcg | | | | | 17 10:59 | | | | | | AM PST | | | | +-------+ +---------+---+---+ +---+---+ | | | +---+---+ + +-------+ +-------+---+---+ | propofol (DIPRIVAN) injection | Given | 12/02/19 | 20 mg | | | | Intravenous, PRN, Starting Fri | | 17 11:08 | | | | | 12/02/16 at 1055, Anesthesia | | AM PST | | | | | Intra-op | | | | | | + +-------+ +-------+---+---+ +-------+ +--------+---+---+ | Given | 12/02/19 | 150 mg | | | | | 17 10:55 | | | | | | AM PST | | | | +-------+ +--------+---+---+ +---+---+ | | | +---+---+ documented in this encounter"
--- OUTSIDE RECORDS SUMMARY | ~2020-07-10 | XMS | Encounter Summary ---
Demographics + + + | Address | [address] | | | [place] [address] | + + + | Home Phone | | + + + | Preferred Language | Unknown | + + + | Marital Status | | + + + | Mormonism Affiliation | Unknown | + + + [...] [place] | | | | | [address] | | + + + + + | Roselia Hayes | ECON | Unknown | | + + + + + Care Team Providers + +------+ + | Care Marine Electronics Repairer Name | Role | Phone | + [...] Description | +--------+--------+ + + + | 06/01/ | Refill | [facility] | Franck Tsai MD | Medication Refill | | 2019 | | CARDIOLOGY [address] | | | | | [place], | [place], [place] | | | | | [place] [address] | [address] | | | | | [phone] | | | +--------+--------+ + + + [...]
--- OUTSIDE RECORDS SUMMARY | ~2020-07-10 | XMS | Encounter Summary ---
Demographics + + + | Address | [address] | | | [place] [address] | + + + | Home Phone [...] [place] | | | | | [address] | | + + + + + | Roselia Hayes | ECON | Unknown | | + + + + + Care Team Providers + +------+ + | Care Information Technology Coordinator Name | Role | Phone | + +------+ + | Cesar Ojeda MD | PCP | | + +------+ + Reason for Visit + +--------+ + | Reason | Onset | Comments | | | Date | | + +--------+ + | Hospital Follow-up | 06/15/ | | | | 2017 | | + +--------+ + Encounter Details +--------+ + + + + | Date | Type | Department | Care Team | Description | +--------+ + + + + | 06/15/ | Telephone | [facility] | Colin Veloz, | Hospital Follow-up | | 2017 | | [facility] | PharmD | | | | | [address] | | | | | | [place] [address] | | | | | | [phone] | | | +--------+ + + + [...] this encounter Miscellaneous Notes Telephone Encounter - Colin Veloz PharmD - 06/15/2018 1:21 PM [facility] Silvestre ne Call Date discharged: 06/13/18 Primary Diagnosis: STEMI No answer, will try call again on 06/18 Date of follow-up appointment with Dr. Tsai on 07/05/2018 at 0900 Phone call made by Colin Veloz PharmD, LON 06/15/2018 13:23 documented in this encounter Plan of Treatment Not on filedocumented as of this encounter Visit Diagnoses Not on filedocumented in this encounter"
--- OUTSIDE RECORDS SUMMARY | ~2020-07-10 | XMS | Encounter Summary ---
Demographics + + + | Address | [address] | | | [place] [address] | + + + | Home Phone | | + + + | Preferred Language | Unknown | + + + | Marital Status | | + + + | Faith Affiliation | Unknown | + + + | Race | White | + + + | Ethnic Group | Not or | + + + Author + + + | Author | [facility] | | | and [place] | + + + | Organization | [facility] | | | [...] [place] | | | | | [address] | | + + + + + | Roselia Hayes | ECON | Unknown | | + + + + + Care Team Providers + +------+ + | Care Relief Charge Nurse Name | Role | Phone | + +------+ + | Cesar Ojeda MD | PCP | | + +------+ + Encounter Details +--------+ + + + + | Date | Type | Department | Care Team | Description | +--------+ + + + + | 05/14/ | Abstract | [facility] | Franck Tsai MD | | | 2018 | | CARDIOLOGY [address] | | | | | [place], | [place], [place] | | | | | [place] [address] | [address] | | | | | [phone] | | | +--------+ + + + [...] + | EXTERNAL LAB: | Routin | 03/28/2019 | | Results for this | | MAGNESIUM | e | | | procedure are in the | | | | | | results section. | + +--------+ + + + | EXTERNAL LAB: | Routin | 03/28/2019 | | Results for this | | TRIGLYCERIDES | e | | | procedure are in the | | | | | | results section. | + +--------+ + + + | EXTERNAL LAB: | Routin | 03/28/2019 | | Results for this | | CHOLESTEROL, HDL | e | | | procedure are in the | | | | | | results section. | + +--------+ + + + | EXTERNAL LAB: | Routin | 03/28/2019 | | Results for this | | CHOLESTEROL, TOTAL | e | | | procedure are in the | | | | | | results section. | + +--------+ + + + | EXTERNAL LAB: | Routin | 03/28/2019 | | Results for this | | CHOLESTEROL, LDL | e | | | procedure are in the | | | | | | results section. | + +--------+ + + + | LIPID PANEL | Routin | 03/28/2019 | | Results for this | | | e | | | procedure are in the | | | | | | results section. | + +--------+ + + + documented in this encounter Results Lipid Panel (03/28/2019) + +-------+ + + + | Component | Value | Ref Range | Performed | Pathologist | | | | | At | Signature | + +-------+ + + + | VLDL | 18 | 4 - 40 | | | | Cholesterol | | | | | | [place] | | | | | + +-------+ + + + | Chol/HDL | 2.8 | | | | | Ratio | | | | | + +-------+ + + + | Non HDL | 75 | | | | | Chol. | | | | | | (LDL+VLDL) | | | | | + +-------+ + + + + + | Specimen | + + | Blood | + + External Lab: Magnesium (03/28/2019) + +---------+ + + + | Component | Value | Ref Range | Performed | Pathologist | | | | | At | Signature | + +---------+ + + + | Magnesium, | 1.4 (A) | 1.7 - 2.5 | | | | External | | | | | + +---------+ + + + External Lab: Triglycerides (03/28/2019) + +-------+ + + + | Component | Value | Ref Range | Performed | Pathologist | | | | | At | Signature | + +-------+ + + + | Triglycerid | 88 | 30 - 150 | | | | es, | | | | | | External | | | | | + +-------+ + + + + + | Specimen | + + | Blood | + + External Lab: Cholesterol, HDL (03/28/2019) + +-------+ + + + | Component | Value | Ref Range | Performed | Pathologist | | | | | At | Signature | + +-------+ + + + | HDL | 41.5 | mg/dl | | | | Cholesterol | | | | | | , External | | | | | + +-------+ + + + + + | Specimen | + + | Blood | + + External Lab: Cholesterol, Total (03/28/2019) + +-------+ + + + | Component | Value | Ref Range | Performed | Pathologist | | | | | At | Signature | + +-------+ + + + | Cholesterol | 116 | mg/dl | | | | , Total, | | | | | | External | | | | | + +-------+ + + + + + | Specimen | + + | Blood | + + External Lab: Cholesterol, LDL (03/28/2019) + +-------+ + + + | Component | Value | Ref Range | Performed | Pathologist | | | | | At | Signature | + +-------+ + + + | LDL | 57 | | | | | Cholesterol | | | | | | , Direct, | | | | | | External | | | | | + +-------+ + + + + + | Specimen | + + | Blood | + + documented in this encounter Visit Diagnoses Not on filedocumented in this encounter"
--- OUTSIDE RECORDS SUMMARY | ~2020-07-10 | XMS | Encounter Summary ---
Demographics + + + | Address | [address] | | | [place] [address] | + + + | Home Phone | | + + + | Preferred Language | Unknown | + + + | Marital Status | | + + + | Synagogue Affiliation | Unknown | + + + | Race | White | + + + | Ethnic Group | Not or | + + + Author + + + | Author | [facility] | | | and [place] | + + + | Organization | [facility] | | | [...] [place] | | | | | [address] | | + + + + + | Roselia Hayes | ECON | Unknown | | + + + + + Care Team Providers + +------+ + | Care Maple Products Maker Name | Role | Phone | + +------+ + PCP | Unavailable | + +------+ + Encounter Details +--------+ + + + + | Date | Type | Department | Care Team | Description | +--------+ + + + + | 07/17/ | Hospital | [facility] | Lyndon Romero MD | | | 1991 | Encounter | MED CTR [facility] OP | [address] | | | | | [address] | [place], [place] | | | | | [place], [place] | [address] | | | | | [address] | [phone] | | | | | [phone] | | | +--------+ + + + [...]
--- OUTSIDE RECORDS SUMMARY | ~2020-07-10 | XMS | Encounter Summary ---
Demographics + + + | Address | [address] | | | [place] [address] | + + + | Home Phone | | + + + | Preferred Language | Unknown | + + + | Marital Status | | + + + | Sikhism Affiliation | Unknown | + + + [...] [place] | | | | | [address] | | + + + + + | Roselia Hayes | ECON | Unknown | | + + + + + Care Team Providers + +------+ + | Care Personal Finance Instructor Name | Role | Phone | [...] Description | +--------+---------+ + + + | 12/25/ | Surgery | [facility] | Mi Le, | [facility] | | 2017 | | MED [facility] CV [facility] OP | MD [address] | | | | | [address] | [place], [place] | | | | | [place], [place] | [address] | | | | | [address] | | | | | | [phone] | | | +--------+---------+ + + + [...] AM PST DISCHARGE SUMMARY PATIENT NAME/: Margarito Stark, (1940) DATE OF ADMISSION: 12/25/2016 DATE OF [...] HOSPITAL COURSE: He went to the cardiac Projector Booth Operator immediately on admission. The prev iously placed stent was subtotally occluded with poor flow beyond. A drug-eluting stent was placed in this region. He had no evidence of heart failure. His blood pressure was too lo w to receive beta lenny and MARRY inhibitor for the first 2 days. His [...] t skip doses. Talk with your healthcare p maribel if your medicines aren't working for you. [...] heartbeat or fast pulse. Date Last Reviewed: 07/23/201619993840-2825 [facility]. [address] [place] [address], [place] [address]. All righ ts reserved. This information is not intended as a substitute for professional medical care. Always follow your healthcare professional's instructions. FOLLOW-UP: Follow up in January as already established with Dr. Le. Time spent on discharge planning: less than 30 minutes Portions of this chart may have been created with [employer] voice recognition software. Occasi onal wrong-word or [...] t skip doses. Talk with your healthcare p maribel if your medicines aren't working for you. [...] heartbeat or fast pulse. Date Last Reviewed: 07/23/201619997751-9293 [facility]. [address] [place] [address], [place] [address]. All [facility] ts reserved. This information is not intended [...] Mehreen Waller PharmD - 12/28/2016 9:52 AM PSTMargarito Stark was admitted for STEMI and discharged home today (12/28/2016) Taught AVS education to patient. Education was focused on new medications and/or changed me dications. I explained indication, how to take, possible side effects, when to contact physi santi, and monitor parameters. The patient was reminded of follow-up appointment with director of strategic sourcing. The patient verbalized understanding of the above [...] [] Doctor's office: [x] Pharmacy [facility] names: [email or web address] [email or web address] [] [facility] SHIFT SUPERVISOR MELTING (Prescription Monitoring Program) [x] [employer] insurance reported information [] Care Everywhere [] [...] review performed and electronically signed by Odilia Segovia, Supervisor Finish End 12/27/2016 15:57 Lionel Ware PHARMD 12/27/2016 16:01 Tracey, Lyndon Juárez MD - 12/27/2016 9:44 AM [...] has precluded use of beta blockers and marry inhibitors. Other: Deterioration in renal function PLAN or RECOMMENDATIONS: 1. IV fluid today 2. Lisinopril was discontinued 3. Beta lenny is being held. Portions of this report may have been transcribed using voice recognition software. Every effort was made to ensure accuracy, however, inadvertent computer support specialist errors may be present . Electronically [...] was made to ensure accuracy, however, inadvertent computer support specialist errors may be present . Electronically [...] STEMI. He was brought to the cardiac laboratory manager. He was found to have a thrombotic [...] ST abnormality, possible anteroseptal subendocardial injury ACUTE AR / STEMI Consider right ventricular involvement in acute inferior infarct Abnormal ECG When compared with ECG of 03-JUL-2016 10:40, Significant changes have occurred Confirmed by MI LE MD ([id number]) on 12/25/2016 7:41:13 PM CBC with Differential [...] out" was called to verify the correct lekin ent, procedure, equipment, computer support technician and site/side marked as required. Preparation: Patient [...] 12/25/2016 PRIMARY CARE PROVIDER: Cesar Ojeda MD SCAFFOLD WORKER: Dr. Mi Le MD, [facility], [facility] PRE-PROCEDURE DIAGNOSIS: STEMI POST-PROCEDURE DIAGNOSIS: Same PROCEDURES [...] 6 F sheath was inserted. A 4 maori she ath was placed in the vein. [...] was pre dilated with 2.5 X 15 [place] balloon. T he lesion was then treated [...] stent placement 2. 100% occlusion of the yomba shoshone circulation 3. Patent MARY to the LAD 4. Patent SVG to the Diagonal CLINICAL IMPRESSION AND RECOMMENDATIONS Plavix for 1 year Mi Le MD, FACC, [facility] DATE/TIME: 12/25/2016 21:15 12/25/2016 21:15 Portions of this chart were created with [employer] voice recognition software. Occasional wron g-word or [...] in this encounter Miscellaneous Notes Plan of Care - Annette Kaiser RN - 12/28/2016 4:22 AM PSTProblem: Patient Care Overvie w (Adult) Goal: Care Team Goals & Evaluation [...] homebound and lives independently with his in [place], and she will be transporting him back home at discharge. He does not use any home 02 or CPAP, nor any DME for his mobility. He still drives. He also confirmed his PCP is Cesar Ojeda and his pharmacy is [facility] both of which are in [place]. Patient and his do not anticipate any discharge needs.Electronically signed by: Carolin neri RN 12/26/2016 16:12 lan of Care - Doug Hoffman Chaplain - 12/26/2016 9:19 AM PST Spiritual Care Margarito Stark is a 76 y.o. male who is admitted for chest pain. Spiritual Evaluation: Active Taoist, Spiritual Intervention: Active listening/pastoral support provided. Spiritual Outcomes: Patient appreciates and is grateful for application packaging consultant's visit. Spiritual Goals / Follow-up: Will see the patient as requested. If there are any other spiritual care issues that arise, please contact application packaging consultant. lan of Dayami - Margarito Gifford RRT - 12/25/2016 10:25 [...] PSTPt here for STEMI per [facility]Froilan valladares signed by Adriana Louis RN at 12/25/2016 4:28 PM PSTdocumented in this encounter Plan of Treatment Not on filedocumented as of this encounter Procedures + +--------+ + + + | Procedure Name | Priori | Date/Time | Associated Diagnosis | Comments | | | ty | | | | + +--------+ + + + | EXTRA BHARTI BURNHAM | Routin | 12/28/2016 | | Results [...] | | [facility] | | | [facility] | | | Top Tube | [...] [address] | [place] | [phone] | | [facility] | | [address] | | | - LABORATORY | | | | + + + + + Troponin I (12/28/2016 4:14 AM PST) + + + + + + | Component | Value | Ref Range | Performed | Pathologist | | | | | At | Signature | + + + + + + | Troponin I | 27.55 ()Comment: | <0.06 ng/mL | [facility] | [...] | | | | | results. [employer] | | | | | | [employer] [...] [address] | [place] | [phone] | | [facility] | | [address] | | | - LABORATORY | | [...] | | | | | mg/dL | [facility] | | | | | | MEDICAL | | | | | | CENTER - | | | | | | LABORATORY | | + + + + + + | eGFR, | 55 (L)Comment: | >=60 | [facility] | | | non- | GLOMERULAR FILTRATION | mL/min/1.73m2 | [facility] | | | Armenian | RATE,ESTIMATED | | MEDICAL | | | | mL/min/1.84e1Cuhn than | | CENTER - | | [...] (L) | 3.2 - 5.0 g/dL | [facility] [...] | | | Phosphatase | | | [facility] | | [...] + | [facility] | [address] | [place] | [phone] | | [facility] | | [address] | | | - LABORATORY | | | | + + + + + Troponin I (12/27/2016 5:15 PM PST) + + + + + + | Component | Value | Ref Range | Performed | Pathologist | | | | | At | Signature | + + + + + + | Troponin I | 31.52 ()Comment: | <0.06 ng/mL | [facility] | [...] The | | | | | | [employer] | | | | | [...] [address] | [place] | [phone] | | [facility] | | [address] | | | - LABORATORY | | [...] 453 | | | JUNIE Patient Number [id number] Date of Study | | | 12/27/2016 Visit Number [id number] | | | Referring Physician Jovany HORTON MD Number Date of | | | 1940 Machine I Cutter RUPINDER KHANNA | | | [facility] Age 76 year(s) Interpreting | | | Jovany HORTON MD | | | Railroad Car Cleaning Supervisor Gender Male Nurse | | | Procedure [...] | 85 ml | | | EF Aclcbdqtt67% Left Ventricle Diastolic Dimension: 5.24 cm | [...] Volume: 85 ml | | | EF Kbqolhonz51% | | | | | | Left [...] + | Dwain, Rad Results In - 12/27/2016 12:29 PM [facility] Transthoracic Echocardiography Report | | (TTE) Demographics Patient Name NEVAEH PIMENTEL Room Number 453 | | [place] Patient Number [id number] Date of Study 12/27/2016 Visit Number | | [id number] Referring Physician Jovany HORTON MD | | Number Date of 1940 Machine I Cutter RUPINDER KHANNA [facility] Age | | 76 year(s) Interpreting Jovany HORTON MD | | Railroad Car Cleaning Supervisor Gender Male NurseProcedureType of Study TTE | [...] LA Volume: 85 ml | | EF Mszuctkli03% Left Ventricle Diastolic Dimension: 5.24 cm Systolic [...] LA Volume: 85 ml | | EF Eebwfibnl98% | | | | Left Ventricle | [...] | | | | | results. [employer] | | | | | | [employer] [...] [address] | [place] | [phone] | | [facility] | | [address] | | | - LABORATORY | | [...] 1.46 (H) | 0.60 - 1.30 | [place] | | | | | mg/dL | [facility] | | | | | | MEDICAL | | | | | | CENTER - | | | | | | LABORATORY | | + + + + + + | eGFR, | 47 (L)Comment: | >=60 | [facility] | | | non- | GLOMERULAR FILTRATION | mL/min/1.73m2 | [facility] | | | [employer] | RATE,ESTIMATED | | MEDICAL | | | | mL/min/1.74x1Hvax than | | CENTER - | | [...] [address] | [place] | [phone] | | [facility] | | [address] | | | - LABORATORY | | [...] | | Cells | | M/uL | [facility] | | | | | [...] | Monocytes | | K/uL | [facility] | | | | | | MEDICAL | | | | | | CENTER - | | | | | | LABORATORY | | + + + + + + | Absolute | 0.60 (H) | 0.00 - 0.40 | [facility] | | | Eosinophils | | K/uL | [facility] | | | | | | MEDICAL | | | | | | CENTER - | | | | | | LABORATORY | | + + + + + + | Absolute | 0.00 | 0.00 - 0.10 | [facility] | [...] [address] | [place] | [phone] | | [facility] | | [address] | | | - LABORATORY | | | | + + + + + Troponin I (12/26/2016 4:58 PM PST) + + + + + + | Component | Value | Ref Range | Performed | Pathologist | | | | | At | Signature | + + + + + + | Troponin I | 67.31 ()Comment: | <0.06 ng/mL | [facility] | | | | Reference | | [facility] | | | | Ranges:0.00-0.06 = [...] on | | | | | | 12/26/2016 at 17:34 by | | | | | | Becky Carreno. The | | | | | | [employer] | | | | | [...] + | [facility] | [address] | [place] | [phone] | | [facility] | | [address] | | | - LABORATORY | | [...] non- | GLOMERULAR FILTRATION | mL/min/1.73m2 | [facility] | | | Armenian | RATE,ESTIMATED | | MEDICAL | | | | mL/min/1.05j5Dsrm than | | CENTER - | | [...] | | | | | mg/dL | [facility] | | | | | | [...] | ine Ratio | | | [facility] | | [...] + | [facility] | [address] | [place] | [phone] | | [facility] | | [address] | | | - LABORATORY | | [...] (H) | 4.0 - 11.0 K/uL | [facility] | | | Cells | | | [facility] | | [...] | 0.00 | 0.00 - 0.10 | [facility] | [...] [address] | [place] | [phone] | | [facility] | | [address] | | | - LABORATORY | | [...] [address] | [place] | [phone] | | [facility] | | [address] | | | - LABORATORY | | | | + + + + + Troponin I (12/26/2016 4:44 AM PST) + + + + + + | Component | Value | Ref Range | Performed | Pathologist | | | | | At | Signature | + + + + + + | Troponin I | >100.00 ()Comment: | <0.06 ng/mL | [facility] | [...] | | | | | | [employer] | | | | | [...] [address] | [place] | [phone] | | [facility] | | [address] | | | - LABORATORY | | [...] (H) | 22 - 269 U/L | [facility] | | | | [...] + | [facility] | [address] | [place] | [phone] | | [facility] | | [address] | | | - LABORATORY | | [...] | + + + + + | [facility] | [address] | [place] | [phone] | | [facility] | | [address] | | | - LABORATORY | | [...] anterior | | | | | | hemiblockInferior-anthropology lecturer | | | | | | ior [...] | | | | RAMÓN DOWD MD ([id number]) | | | | | | on [...] ST. | [address] | [place] | [phone] | | [facility] | | [address] | | | - LABORATORY | | [...] - 1.030 | [facility] | | | [place], | | | [facility] | | [...] 2 /LPF | [facility] | | | [place], | | | [facility] | | | Urine | | | MEDICAL | | | | | | CENTER - | | | | | | LABORATORY | | + + + + + + | Urine | Urine Culture Set Up | | [facility] | | | Comment | | | [...] | + + + + + | [facility] | [address] | [place] | [phone] | | [facility] | | [address] | | | - LABORATORY | | [...] + | [facility] | [address] | [place] | [phone] | | [facility] | | [address] | | | - LABORATORY | | [...] ACUTE | | | | | | AR / STEMI Consider | | | | [...] | | | | RAMÓN DOWD MD ([id number]) | | | | | | on [...] | | Top Tube | | | [facility] | | [...] [address] | [place] | [phone] | | [facility] | | [address] | | | - LABORATORY | | [...] | | Lavender | | | [facility] | | | Top Tube | [...] [address] | [place] | [phone] | | [facility] | | [address] | | | - LABORATORY | | [...] + | [facility] | [address] | [place] | [phone] | | [facility] | | [address] | | | - LABORATORY | | [...] | | | | | | [employer] | | | | | [...] + | [facility] | [address] | [place] | [phone] | | [facility] | | [address] | | | - LABORATORY | | [...] | | | | | mmol/L | [facility] | | | | [...] eGFR, | 60Comment: GLOMERULAR | >=60 | [facility] | | | non- | FILTRATION | mL/min/1.73m2 | [facility] | | | [employer] | RATE,ESTIMATED | | MEDICAL | | | | mL/min/1.98g7Nesr than | | CENTER - | | [...] | 8.8 | 8.3 - 10.5 | [facility] | | | | | mg/dL | [facility] | | | | | | MEDICAL | | | | | | CENTER - | | | | | | LABORATORY | | + + + + + + | Albumin | 3.8 | 3.2 - 5.0 g/dL | [facility] [...] | | Protein | | | [facility] | | [...] Phosphatase | appended report. These | | ST. [...] | ine Ratio | | | [facility] | | | | | | MEDICAL [...] [address] | [place] | [phone] | | [facility] | | [address] | | | - LABORATORY | | [...] [address] | [place] | [phone] | | [facility] | | [address] | | | - LABORATORY | | [...] | | | | | | ACUTE AR / STEMI | | | | | [...] MD | | | | | | ([id number]) on 12/25/2016 | | | | | [...] (ANGIOMAX) 250 mg | New Bag | 12/26/19 | 1.75 | 26.7 | | | in 50 ml NS infusion CONTINUOUS | | 17 4:59 | mg/kg/hr | mL/hr | | | PRN, Starting 12/25/16 at 1659, | | PM PST | | | | | Intra-op | | | | | | + +---------+ + +-------+------+ +---+---+ | | | +---+---+ + +-------+ + +---+---+ | bivalirudin (ANGIOMAX) 5 mg/ml | Given | 12/26/19 | 57.15 mg | | | | in NS bolus bolus ONCE PRN, | | 17 4:59 | | | | | Starting 12/25/16 at 1659, | | PM PST | | | | | Intra-op | | | | | | + +-------+ + +---+---+ +---+---+ | | | +---+---+ + +-------+ +--------+---+---+ | clopidogrel (PLAVIX) tablet | Given | 12/26/19 | 600 mg | | | | ONCE PRN, Starting 12/25/16 at | | 17 5:50 | | | | | 1750, Intra-op | | PM PST | | | | + +-------+ +--------+---+---+ +---+---+ | | | +---+---+ + +-------+ +--------+---+---+ | fentaNYL (PF) injection ONCE | Given | 12/26/19 | 25 mcg | | | | PRN, Starting 12/25/16 at 1645, | | 17 5:20 | | | | | Intra-op | | PM PST | | | | + +-------+ +--------+---+---+ +-------+ +--------+---+---+ | Given | 12/26/19 | 25 mcg | | | | | 17 5:14 | | | | | | PM PST | | | | +-------+ +--------+---+---+ | Given | 12/26/19 | 50 mcg | | | | | 17 4:45 | | | | | | PM PST | | | | +-------+ +--------+---+---+ +---+---+ | | | +---+---+ + +-------+ +---------+---+---+ | iohexol (OMNIPAQUE 350) 350 | Given | 12/26/19 | 125 mLs | | | | mg/mL injection ONCE PRN, | | 17 5:32 | | | | | Starting 12/25/16 at 1732, | | PM PST | | | | | Intra-op | | | | | | + +-------+ +---------+---+---+ +---+---+ | | | +---+---+ + +-------+ +------+---+---+ | midazolam (VERSED) 1 mg/mL | Given | 12/26/19 | 1 mg | | | | injection ONCE PRN, Starting Sun | | 17 5:20 | | | | | 3/5/17 at 1645, Intra-op | | PM PST | | | | + +-------+ +------+---+---+ +-------+ +--------+---+---+ | Given | 12/26/19 | 0.5 mg | | | | | 17 5:14 | | | | | | PM PST | | | | +-------+ +--------+---+---+ | Given | 12/26/19 | 0.5 mg | | | | | 17 5:04 | | | | | | PM PST | | | | +-------+ +--------+---+---+ +---+---+ | | | +---+---+ + +-------+ +---------+---+---+ | niCARdipine in dextrose | Given | 12/26/19 | 200 mcg | | | | (CARDENE) 0.2 mg/ml syringe ONCE | | 17 5:21 | | | | | PRN, Starting 12/25/16 at | | PM PST | | | | | 1703, Intra-op | | | | | | + +-------+ +---------+---+---+ +-------+ +---------+---+---+ | Given | 03/05/20 | 200 mcg | | | | | 17 5:03 | | | | | | PM PST | | | | +-------+ +---------+---+---+ +---+---+ | | | +---+---+ documented in this encounter
--- OUTSIDE RECORDS SUMMARY | ~2020-07-10 | XMS | Encounter Summary ---
Demographics + + + | Address | [address] | | | [place] [address] | + + + | Home Phone | | + + + | Preferred Language | Unknown | + + + | Marital Status | | + + + | Scientologist Affiliation | Unknown | + + + [...] [place] | | | | | [id number] | | + + + + + | Roselia Hayes | ECON | Unknown | | + + + + + Care Team Providers + +------+ + | Care Yardmaster Name | Role | Phone | + [...] | | | | | | | [place] | | | | | | | [place] | | | | | | | JAFULGUR | | | | | | | 2-5CM LESN | | | | | | | [place] | | | | | | | [place]ST[place] | | | | | | | SCOPY,URETER | | | | | | | CATHETER | | | | | | | [place] REIMPLANT | | | | | | [...] Description | +--------+---------+ + + + | 12/11/ | Surgery | [facility] | Lyndon Romero MD | [facility] | | 2015 | | MED CTR OR INTRA OP | [address] | Retrograde | | | | [address] | [place], [place] | Pyelogram, | | | | [place], [place] | [address] | Reimplantation of | | | | [address] | [phone] | Right Ureter | | | | [phone] | | Ureteroneocystostomy | | | | | | (Open Procedure) | +--------+---------+ + + + Social History [...] + + + | Blood Pressure | 149/83 | 12/11/2015 11:10 AM | | | | | PST | | + + + + + | Pulse | 79 | 12/11/2015 11:10 AM | | | | | PST | | + + + + + | Temperature | 36.9 C (98.4 F) | 12/11/2015 10:36 AM | | | | | PST | | + + + + + | Respiratory Rate | 13 | 12/11/2015 11:10 AM | | | | | PST | | + + + + + | Oxygen Saturation | 97% | 12/11/2015 11:10 AM | | | | | PST | | + + + + + | Inhaled Oxygen | - | - | | | Concentration | | | | + + + + + | Weight | 75.3 kg (166 lb) | 12/11/2015 6:00 AM | | | | | PST | | + + + + + | Height | 170.2 cm (5' 7") | 12/11/2015 6:00 AM | | | | | PST | | + + + + + | Body Mass Index | 26 | 12/11/2015 6:00 AM | | | | | PST | | + + + + + documented in this encounter Discharge Summaries Lyndon Romero MD - 12/13/2015 7:15 AM PST DISCHARGE SUMMARY Pt. Name/Age/: Lokesh Stark 75 y.o. 1940 Date of Admission: 12/11/2015 Date of Discharge: 12/13/2015 Admitting Physician: Lyndon Romero MD PCP: Cesar Ojeda Discharging Physician: Lyndon Romero Consultants: Primary Discharge Dx: Distal obstruction right ureter. Suspected recurrent bladder tumor. Patient Active Problem List Diagnosis Malignant neoplasm of bladder Coronary atherosclerosis Diabetes type 2, controlled Benign essential hypertension Secondary Discharge Dx: Procedures: Cystoscopy with right retrograde pyelography and ureteroscopy. Transurethral resection of bladder tumor. Right ureteroneocystostomy Hospital Course, including Complications: Following surgery on the day of admission, the latosha rivers had mild fever the evening of surgery. He tolerated regular diet and having one dustin l movement. He ambulated with very minimal analgesia requirement. Preoperative urine cultu re had grown Staphylococcus, for which Levaquin was prescribed. The day of discharge the juliano hackett informed me he had not started his antibiotic prior to surgery. He will take Levaquin until day of intended Thomason catheter removal, December 21. He has a component of obstructive v oiding with postvoid residual 159 cc. He will begin tamsulosin 2 days prior to voiding tria l. Medications Reconciled upon Discharge are: Discharge Medications New Medications Details levofloxacin 250 mg tablet Take 1 tablet by mouth Daily for 10 days. aka: LEVAQUIN tamsulosin 0.4 mg Caps Take 1 capsule by mouth daily (after breakfast). aka: FLOMAX Unchanged Medications Details aspirin 81 mg EC tablet Take 81 mg by mouth Daily. atorvaSTATin 80 MG tablet Take 80 mg by mouth nightly. aka: LIPITOR CENTRUM SILVER ULTRA WOMENS Tabs Take by mouth. Cholecalciferol 5000 units Caps Take by mouth Daily. aka: VITAMIN D-3 Ferrous Fumarate 325 (106 FE) MG Tabs Take by mouth. fish oil 1,000 mg capsule Take 1,000 mg by mouth 3 times daily. folic acid 1 mg tablet Take 1 mg by mouth Daily. lisinopril 20 mg tablet Take 20 mg by mouth Daily. aka: PRINIVIL, ZESTRIL metFORMIN 500 mg tablet Take 500 mg by mouth 2 times daily (with breakfast & dinner). aka: GLUCOPHAGE omeprazole 20 mg capsule Take 20 mg by mouth every morning (before breakfast). aka: priLOSEC There is no immunization history on file for this patient. Vital Signs: Temp: 37 C (98.6 F) BP: 143/85 mmHg Pulse: 88 Resp: 18 SpO2: 93 % Min/Max Temp past 24 hours:Temp Av.9 C (98.4 F) Min: 36.4 C (97.5 F) Max: 3 7.5 C (99.5 F) Intake/Output Summary (Last 24 hours) at 12/13/15 0715 Last data filed at 12/13/15 0600 Gross per 24 hour Intake 4790 ml Output 6020 ml Net -1230 ml Last Wt. Before discharge: Weight: 75.297 kg (166 lb) Pending study results on DC: Bladder biopsy Follow-Up Plans: Follow-up with: Dr. Romero, MondayDecember 21 at 9:00 am Diet: normal Activity: Okay to shower beginning MondayDec 14, No lifting or straining for a month Electronically signed by: Lyndon Romero, 12/13/2015 7:15 [facility] documented in this enc ounter Discharge Instructions Instructions Richard Fang, Self Pay Representative - 12/13/2015 Understanding Bladder Cancer The urinary system makes, stores and gets rid of urine. The bladder is where urine is store d before it leaves the body. Bladder cancer means that certain cells in the urinary tract saavedra ve changed in ways that aren t normal. When Bladder Cancer Forms Cancer is a disease that causes cells to change and multiply out of control. The multiplyin g cells may form a lump of tissue (tumor). With time, the cancer cells destroy healthy tissu e. They may spread to other parts of the body. Why cells become cancerous is not clear. But bladder cancer is strongly linked to cigarette smoking. The longer a person smokes and the m ore a person smokes, the greater that person s chances of developing bladder cancer. Types of Cancer That May Form Bladder cancer may grow in different ways: Papillary tumors stick out from the bladder lining on a stalk. They tend to grow into th e bladder cavity, away from the bladder wall, instead of deeper into the layers of the bladd er wall. Sessile (flat) tumors do not stick out from the bladder lining. Sessile tumors are much more likely than papillary tumors to grow deeper into the layers of the bladder wall. Carcinoma in situ (CIS) is a cancerous patch that is only in the inner layer of the blad shirlene lining and has notspread todeeper tissue. The patch may look almost normal or may lo ok inflamed. Each type of tumor can be present in1 or more areas of the bladder, and more than1 type can be present at the same time. [employer]. [address] [place] [address]. All rig ts reserved. This information is not intended as a substitute for professional medical care. Always follow your healthcare professional's instructions. Taking Your Blood Pressure Blood pressure is the force of blood as it moves from the heart through the blood vessels. You can take your own blood pressure reading using a digital monitor. Take readings as often as your doctor instructs. Take each reading at the same time of day. Step 1. Relax Wait at least a half-hour after smoking, eating, or exercising. Sit comfortably at a table. Place the monitor near you. Rest for a few minutes before you begin. Step 2. Wrap the Cuff Place your arm on the table, palm up. Your arm should be at the level of your heart. Wra p the cuff around your upper arm, just above your elbow. It s best done on bare skin, not over clothing. Make sure your cuff fits. If it doesn t wrap around your upper arm, order a larger cuf f. Step 3. Inflate the Cuff Pump the cuff until the scale reads 160. If you have a self-inflating cuff, push the but ton that starts the pump. The cuff will tighten, then loosen. The numbers will change. When they stop changing, your blood pressure reading will appea r. If you get a reading that is too high or too low for you, relax for a few minutes. Then do the test again. Step 4. Write Down the Results Write down your blood pressure numbers. Note the date and time. Keep your results in one place, such as a notebook. Remove the cuff from your arm. Turn off the machine. [employer]. [address] [place] [address], [place] [address]. All rig ts reserved. This information is not intended as a substitute for professional medical care. Always follow your healthcare professional's instructions. Normal diet. Wait until Monday to resume showering. Keep urine bag lower than bladder. D rink a minimum of 2 quarts daily. Continue the antibiotic Levaquin as prescribed. Next mondayDecember 20 begin tamsulosin, one capsule daily as a medicine to improve urination. Staging of Bladder Cancer Once cancer has been diagnosed, the next step is to choose the best way to treat it. To hel p do this, your doctor checks how deep the cancer has grown and whether it has spread (the c ancer stage). Stage: How much the cancer has grown and spread As cancer cells multiply, the tumor grows. Bladder cancer begins in the inner lining of the bladder, and often doesn t grow beyond that layer. As the tumor gets larger, it may invad e (grow into) deeper layers of the bladder. It may also invade nearby organs, such as the pr ostate in men or the uterus in women. Cells can break off from the main tumor and enter the bloodstream or lymph nodes. Blood or lymph then carries the cells to other areas of the body , such as the bones, liver, or lungs, where a new growth may form. This process is called me tastasis. The stage of cancer is based on where the cancer is and how much it has grown and spread. The stage is found by looking inside the bladder during cystoscopy and using tests t hat show images of the bladder, the areas around it, and parts of the body that the cancer m ay spread to. The staging system described below is a simplified one. Your doctor will most likely use a more detailed system. [id number] [employer]. [address] [place] [address]. All righ ts reserved. This information is [...] + + + +---------+ + + | levofloxacin | Take 1 tablet by | 10 | 0 | 12/13/19 | | | (LEVAQUIN) 250 mg | mouth Daily for 10 | tablet | | 16 | 6 | | tablet | days. | | | | | + + [...] documented as of this encounter Progress Notes Lyndon Romero MD - 12/12/2015 7:35 AM PST DATE/TIME: 12/12/2015 7:36 ASSESSMENT AND PLAN: 1. Favorable absence of hematuria. Ambulate. Expect discharge tomorrow. SUBJECTIVE/ROS: Lokesh Stark is now Hospital Day: 2 following TUR bladder tumor and right ureteroneocysto stomy. No pain or nausea. CURRENT INFUSIONS CURRENT MEDICATIONS aspirin 81 mg Oral Daily famotidine 20 mg Oral BID levofloxacin 250 mg Oral Daily lisinopril 20 mg Oral Daily metFORMIN 500 mg Oral BID WC senna 8.6 mg Oral BID I personally reviewed the above medications. OBJECTIVE: Temp: 37.6 C (99.7 F) BP: 143/68 mmHg Pulse: 75 Resp: 18 SpO2: 93 % on Min/Max Temp past 24 hours:Temp Av.8 C (100 F) Min: 36.9 C (98.4 F) Max: 38 .8 C (101.8 F) Intake/Output Summary (Last 24 hours) at 12/12/15 0736 Last data filed at 12/12/15 0600 Gross per 24 hour Intake 4448 ml Output 3210 ml Net 1238 ml Wt. Admission: Weight: 76.204 kg (168 lb) Wt. Current: Weight: 75.297 kg (166 lb) General: alert and oriented Heart: Lungs: Abdomen: soft, dressing dry Chemistry: Hematology: Electronically Signed by: Lyndon Romero MD, 12/12/2015 7:36 [facility] documented in this enc ounter H&P Notes Lyndon Romero MD - 12/11/2015 7:15 AM PSTNo interval change in history and physical exam . yndon Romero MD - 0 12/09/2015 6:49 PM PSTAssessment 1. Malignant neoplasm of bladder (C67.9) 2. Enlarged prostate with urinary retention (N40.1,R33.8) 3. Hydronephrosis with ureteral stricture (N13.1) Procedure PREOPERATIVE DIAGNOSIS History of bladder tumor Stented right ureter Obstructing prostate POSTOPERATIVE DIAGNOSIS same PROCEDURE PERFORMED Cystoscopy ANESTHETIC 2% Lidocaine jelly SURGEON Lyndon Romero M.D. PROCEDURE: In lithotomy, the genitalia are prepped and draped. A 17 Norwegian cystoscope was i ntroduced. Pendulous and bulbar urethra is normal. Lateral lobes of the prostate coapt to 2 cm. The bladder is entered and drained of a 100 cc postvoid residual. The right intravesical end of the stent has early encrustation. Elevated cobblestone erythema surrounds the right ureteral orifice over a 2.5 cm diameter. The left orifice is resected, slightly laterally di splaced and poorly coapting. The remainder of the bladder had smooth mucosa. Plan Focal raised erythema around the right orifice. This may be stent irritation but is dramat ically contrasting with other mucosa in the bladder. Plan transurethral resection under anes thetic and right ureteral reimplant. EKG today. Risks of infection, bleeding, recurrent sten osis of the ureter, hernia is discussed. Initiate tamsulosin. 20 minute discussion beyond to day's procedure. Cc: Dr. Cesar Ojeda Signatures Electronically signed by : Lyndon Romero M.D.; Nov 30 2015 1:53PM PST (Author) Lyndon Liz MD - 0 12/09/2015 6:48 PM PST Chief Complaint Lengthy history of bladder cancer Assessment Malignant neoplasm of bladder (C67.9) Hydronephrosis with ureteral stricture (N13.1) Incomplete bladder emptying (R33.9) History of Cholecystectomy Laparoscopic Plan 1. History a recurrent bladder tumor. Last lesion resected 2012. Reassess by cystoscopy. Obtain most recent labs, CT and EKG. 2. Obstructed right ureteral orifice treated with chronic stent. General anesthesia to [facility] his stent every 3 months is a morbid group home proposition. Assess under cystoscopy for near future right ureteral reimplantation. 3. Probable obstructing prostate with incomplete bladder emptying. 45 minute visit, jer ponce in discussion. Addendum 11/27/15 - urine culture reports >100,000 col/ml Staphylococcus coagulase negative . Levaquin 250 mg x 7 days initiated today. Addendum 11/27/15 - 1) contrast abdomen and pelvis CT 02/20/16 at [facility] reported cholecystitis, normal kidneys, right ureteral stent with a dilated right ureter. 2) KUB reports right stent in good position . 3) CBC normal on 10/15/15. Glucose 199 with otherwise normal basic chemistry and normal CBC on 09/10/15. 4) series of EKGs demonstrating sinus bradycardia with a marked sinus arrhythmia and nonspe cific ST changes 02/15/15, atrial flutter with variable AV block on 02/17/15, normal sinus r hythm recorded on two EKGs 3 hours apart on 02/18/15. Cc: Dr. Cesar Ojeda History of Present Illness This 75 year old male is a modest historian. He is a prior patient of Dr. Canchola. He has a history of low-grade bladder tumor since the mid 1980s. He was lost to followup, and returne d in 2003 with multiple low-grade bladder tumors. He was again lost to followup and returned in 2009 with superficial bladder tumor. His right ureteral orifice obstructed following res ection in 2010. He required right antegrade stent placement February 2013 with subsequent exchang e of his double-J stent every 3 months under general anesthetic. Stent was most recently jenn nged 09/11/15, and cytology from that day was suspicious. He voids every 1.5-3 hours during the day and every 2-3 hours at night. Stream is slow and continuous with occasional double voiding. He denies dysuria or incontinence. He has daily r ust-colored urine. He has no personal history of kidney stones. Last CT and EKG was performe d at [facility] in 2014. He is not certain of PSA testing. Review of Systems Daily bowel movement without hematochezia. Intentional dieting the last 3 years. No strok e, seizure, shortness of breath, angina, gastric ulcer, hepatitis, skin cancer, back pain or paresthesias, unusual infection, edema. No prior myocardial infarction. 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 No alcohol consumption. Drinks 4-5 cups of coffee daily. Current Meds Aspirin EC 81 MG Oral [...] Tablet; Therapy: (Recorded:20Nov2015) to Recorded Allergies Penicillins Vitals Vitals Panel [Data Includes: Current Encounter] Recorded: 23Nov2015 10:07AM Heart Rate 68, L Radial Respiration 16 Systolic 128, LUE, Sitting Diastolic 81, LUE, Sitting Height 5 ft 7 in Weight 168 lb BMI Calculated 26.31 BSA Calculated 1.88 Tests Bladder scan residual 157 cc. Physical Exam Alert male with mild central obesity. Clear speech and normal gait. Neck without mass. Sym metric facial expression. Lungs clear to auscultation. Heart has regular rate without murmur . No flank tenderness. Abdomen soft and nontender without mass. No inguinal hernia. Circumci sed penis without lesion. Normal testes and spermatic cords. Normal anal tone with 25 g smoo th prostate. Signatures Electronically signed by : Lyndon Romero M.D.; Nov 27 2015 5:12PM PST (Author) documented in this enc ounter Miscellaneous Notes Plan of Care - Yury Chen, RN - 12/13/2015 4:58 AM PSTProblem: Patient Care Overview (Adult) Goal: Care Team Goals & Evaluation PReestablish or maintain fluid and electrolyte balance. Prevent complications. Provide emotional support for client and significant other (SO). Provide information about disease process, prognosis, and treatment needs. Discharge Goals Homeostasis achieved. Complications prevented or minimized. Dealing realistically with current situation. Disease process, prognosis, and therapeutic regimen understood. Plan in place to meet needs after discharge. Outcome: Improving Goal Evaluation: Patient sleeping well during the night. ABD pain reported and well controlled with PO mary cotics ( 1 pill). Thomason catheter patent and collecting sufficient amounts of pink/red clear urine/ no blood clots noted in urine output. Currently on RA and 02 saturation at 93-94%. T olerating diet well. VS stable. SCD's on. No injuries reported or noted. No other changes t o assessment. lan of Care - Alexus on, Ruperto Ernandez RN - 12/12/2015 7:27 PM PSTProblem: Patient Care Overview (Adult) Goal: Care Team Goals & Evaluation PReestablish or maintain fluid and electrolyte balance. Prevent complications. Provide emotional support for client and significant other (SO). Provide information about disease process, prognosis, and treatment needs. Discharge Goals Homeostasis achieved. Complications prevented or minimized. Dealing realistically with current situation. Disease process, prognosis, and therapeutic regimen understood. Plan in place to meet needs after discharge. Outcome: Improving Goal Evaluation: patient ambulating in justin today. Clear urine draining adequate amounts. No c/o pain. Dres sing remains dry and intact lan of Yury Martinez RN - 12/12/2015 4:56 AM PSTProblem: Patient Care Overview (Adult) Goal: Care Team Goals & Evaluation PReestablish or maintain fluid and electrolyte balance. Prevent complications. Provide emotional support for client and significant other (SO). Provide information about disease process, prognosis, and treatment needs. Discharge Goals Homeostasis achieved. Complications prevented or minimized. Dealing realistically with current situation. Disease process, prognosis, and therapeutic regimen understood. Plan in place to meet needs after discharge. Outcome: Improving Goal Evaluation Patient sleeping well during the night. No pain reported or noted. Thomason catheter patent an d collecting sufficient amounts of pink/red clear urine. Small blood clots noted in urine ou tput. IV fluid continued. Currently on RA and 02 saturation at 93%. Tolerating diet well. VS stable. No injuries reported or noted. No other changes to assessment. lan of Ruperto Chiu RN - 12/11/2015 7:16 PM PSTProblem: Patient Care Overview (Adult) Goal: Care Team Goals & Evaluation PROBLEM-RELATED GOALS: STRATEGY TO ACHIEVE GOALS: RESTRAINT-RELATED GOALS: STRATEGIES TO ACHIEVE RESTRAINT GOALS: Goal Evaluation: patients urine red opaque, sitting up eating soft foods tonight. Given IS treatments mild fever this afternoon reported to md. lan of Ruperto Chiu RN - 12/11/2015 7:14 PM PSTProblem: Patient Care Overview (Adult) Goal: Care Team Goals & Evaluation PROBLEM-RELATED GOALS: STRATEGY TO ACHIEVE GOALS: RESTRAINT-RELATED GOALS: STRATEGIES TO ACHIEVE RESTRAINT GOALS: Outcome: Improving Goal Evaluation: Goal: Personalization Needs & Preferences Outcome: Improving Comments: Reestablish or maintain fluid and electrolyte balance. Prevent complications. Provide emotional support for client and significant other (SO). Provide information about disease process, prognosis, and treatment needs. Discharge Goals Homeostasis achieved. Complications prevented or minimized. Dealing realistically with current situation. Disease process, prognosis, and therapeutic regimen understood. Plan in place to meet needs after discharge. lan of Care - Serina Herring RN - 12/11/2015 6:26 PM PSTDischar planning: I met with Mr Lokesh Stark (Ron). He states he lives in his home with his in [place] . The home is a one level home with 2 steps to enter. He states his is home sick with, he thinks the flu. She will be his transportation home or his [id number]. Dr Ojeda, and he use the [facility] in [place] pharmacy. Ivan states he is very independent and still drives. He does not use any DME and does not saavedra ve any home oxygen. We discussed home health services, Ivan states he does not feel the need for home health. He states that they have have 2 daughters that live in [place] that come to help, a brother and [id number] that also live in [place] that are available to help out. He also stats he has a daughter that lives in [place] that is able to come stay with him if needed. No other needs noted. Electronically signed by: Serina Herring RN 12/11/2015 18:34 p Note - Lyndon Romero MD - 12/11/2015 10:35 AM PSTFormatting of this note might be different from the orig inal. [facility] OPERATIVE NOTE Pt. Name/Age/: Lokesh Stark 75 y.o. 1940 Med. Record Number: [id number] Date of Operation/Procedure: 12/11/2015 Preoperative Diagnosis: Hydroureteronephrosis [N13.1], Bladder neoplasm uncertain behavior Post-Op Diagnosis Codes: * Hydroureteronephrosis [N13.1] Postoperative Diagnosis: Same Surgeon: Lyndon Romero MD [employer] Social Science Teacher(s): None Anesthesia Provider(s): Anesthesiologist: Aristides Gibson MD Anesthesia Type: General Procedure(s): T.U.R.B.T., Retrograde Pyelogram, Right Ureteroneocystostomy Operative Indications: Lokesh Stark is a 75 y.o. year old male has a history of superfic ial bladder tumors since the 1980s. His right ureteral orifice obstructed following resecti on of most recent bladder tumor in 2010. He has been maintained with a right double-J stent , changed every 3 months under and a static, by another urologist. Recent office cystoscopy observed cobblestone elevated the mucosa surrounding the right orifice with distinct margin ation. Preoperative urine culture recovered Staphylococcus and he completed 7 days of Levaq uin. He has slow continuous urine stream with occasional double voiding and incomplete blad shirlene emptying consistent with his visually obstructing prostate. Operative Findings: Operation: The patient was identified as Lokesh Stark and the procedure was confirmed as stated above. The patient was placed in the supine position. SCD devices were applied. Fol lowing the induction of adequate general endotracheal anesthesia, legs were initially placed in lithotomy and the genitalia prepped and draped. A 21 Norwegian cystoscope was introduced. The bladder was cleared of cloudy red urine which was collected for culture. The intravesi dorcas end of the stent had slight protein encrustation. I could not introduce a guidewire adj acent to the stent. The lower end of the stent was drawn out to the urethral meatus. The s tent was then cannulated with a guidewire, which reach the right renal pelvis. Was removed. Open-end ureteral catheter was advanced over the wire. Retrograde pyelography identified right hydroureteronephrosis down to the very distal ureter. The right upper third ureter saavedra d one area of focal narrowing, but similar dilated ureter both above and below this stenosis . Irregular contrast distribution in the right renal pelvis suggested filling defects. A 2 8 cm x 15 Norwegian ureteral access sheath was threaded over the safety wire reaching the sacro iliac level. Flexible ureteroscope was introduced and advanced the remainder of the way up to the renal pelvis. There was ureteral wall edema but no evidence of tumor, debris, or sto margareth. Ureteroscope and access sheath were withdrawn. Cystoscope was placed back over the sa fety wire. A 6 Norwegian by 26 cm stent was loaded over the guidewire. Superior and coiled wi thin the right renal pelvis as seen by contrast previously instilled. Lower end of the sten t coiled within the bladder. A 24 Norwegian continuous-flow resectoscope was introduced with obturator. Loop electrode was used to resect the cobblestone mucosa surrounding the right orifice and this tissue was col lected for histology. The patient's legs were returned to supine position. Abdomen and genitalia were reprepped and draped. Lower midline incision progressed through the rectus fascia. Muscle bellies of the rectus abdominis were parted in midline. Blunt paravesical dissection was performed. A Bookwalter retractor was positioned. A 20 Norwegian Thomason was inserted. 200 cc bacitracin w as instilled in the bladder. Midline anterior cystotomy was performed. The right ureter wa s dissected beyond the wall of the bladder. Bladder wall was opened slightly superiorly abo ve the right ureter. The original position of the right orifice was closed with 2-0 Vicryl in the detrusor and 3-0 Vicryl on the bladder mucosa. The right orifice was resected for sp ecimen. The right ureter was spatulated. Peroneal cystoscopy was completed with interrupte d 3-0 Vicryl leaving the double-J stent in place. The bladder was irrigated with bacitracin . Bladder wall was closed with running 0 chromic. A 15 Norwegian round drain was introduced t he retropubic space and secured to the skin with Vicryl. Rectus fascia was closed with 0 PD S. The patient was closed with 2-0 Vicryl. Skin was closed with 3-0 PDS. Dressings were a pplied. Estimated Blood Loss: 100 cc Transfused: no Drains: 20 Fr thomason, 15 Fr drain Specimen (s): ID Type Source Tests Collected by Time Destination A : right trigone Tissue Urinary Bladder SPECIMEN TO PATHOLOGY Lyndon Romero MD 12/11/2015 0908 Pathology B : right ureteral orifice Tissue Ureter Right SPECIMEN TO PATHOLOGY Lyndon Romero MD 12/11 0950 Pathology Complications: none Electronically Signed by: Lyndon Romero MD, 12/11/2015 10:35 [facility] documented in this enc ounter Plan of Treatment Not on filedocumented as of this encounter Procedures + +--------+ + + + | Procedure Name | Priori | Date/Time | Associated Diagnosis | Comments | | | ty | | | | + +--------+ + + + | RESPIRATORY THERAPY | Routin | 12/11/2015 | | | | COMMUNICATION | e | 4:29 PM | | | | | | PST | | | + +--------+ + + + | POC GLUCOSE | Routin | 12/11/2015 | | Results for this | | | e | 10:44 AM | | procedure are in the | | | | PST | | results section. | + +--------+ + + + | URINALYSIS, | Routin | 12/11/2015 | | Results for this | | MICROSCOPIC ONLY, | e | 10:04 AM | | procedure are in the | | WITH CULTURE IF | | PST | | results section. | | INDICATED | | | | | + +--------+ + + + | CULTURE, URINE | Routin | 12/11/2015 | | Results for this | | | e | 10:04 AM | | procedure are in the | | | | PST | | results section. | + +--------+ + + + | [place] PYELOGRAM | Routin | 12/11/2015 | | Results for this | | RETROGRADE | e | 8:59 AM | | procedure are in the | | | | PST | | results section. | + +--------+ + + + | PROSTATECTOMY | | 12/11/2015 | | | | RADICAL | | 7:30 AM | Hydroureteronephrosi | | | | | PST | s Enlarged prostate | | | | | | with lower urinary | | | | | | tract symptoms | | + +--------+ + + + | POC GLUCOSE | Routin | 12/11/2015 | | Results for this | | | e | 7:15 AM | | procedure are in the | | | | PST | | results section. | + +--------+ + + + | CBC NO DIFFERENTIAL | STAT | 12/11/2015 | | Results for this | | | | 6:42 AM | | procedure are in the | | | | PST | | results section. | + +--------+ + + + | BASIC METABOLIC | STAT | 12/11/2015 | | Results for this | | PANEL | | 6:42 AM | | procedure are in the | | | | PST | | results section. | + +--------+ + + + | SURGICAL PATHOLOGY | Routin | 12/11/2015 | | Results for this | | EXAM | e | 12:00 AM | | procedure are in the | | | | PST | | results section. | + +--------+ + + + documented in this encounter Results POC Glucose (12/11/2015 10:44 AM PST) + +-------+ + + + | Component | Value | Ref Range | Performed | Pathologist | | | | | At | Signature | + +-------+ + + + | Glucose, | 129 | 70 - 150 mg/dL | [facility] + | [facility] | [address] | [place] | [phone] | | [facility] | | [address] | | | - LABORATORY | | | | + + + + + Culture, Urine (12/11/2015 10:04 AM PST) + + + + + + | Component | Value | Ref Range | Performed | Pathologist | | | | | At | Signature | + + + + + + | Culture | >100,000 CFU/ml | | [facility] | | | | Staphylococcus | | [facility] | | | | epidermidis | | MEDICAL | | | | | | CENTER - | | | | | | LABORATORY | | + + + + + + + + | Specimen | + + | Urine | + + + + +--------+ + | Organism | Antibiotic | Method | Susceptibility | + + +--------+ + | Staphylococcus | Levofloxacin | | 4: Resistant | | epidermidis | | | | + + +--------+ + | Staphylococcus | Nitrofurantoin | | <=16: Sensitive | | epidermidis | | | | + + +--------+ + | Staphylococcus | Oxacillin | | <=0.25: Sensitive | | epidermidis | | | | + + +--------+ + | Staphylococcus | Penicillin G | | >=0.5: Resistant | | epidermidis | | | | + + +--------+ + | Staphylococcus | Rifampin | | <=0.5: Sensitive | | epidermidis | | | | + + +--------+ + | Staphylococcus | Tetracycline | | <=1: Sensitive | | epidermidis | | | | + + +--------+ + | Staphylococcus | Trimethoprim + | | 80: Resistant | | epidermidis | Sulfamethoxazole | | | + + +--------+ + + + + + + | Performing | Address | City/State/Zipcode | Phone Number | | Organization | | | | + + + + + | [facility] | [address] | [place] | [phone] | | [facility] | | [address] | | | - LABORATORY | | | | + + + + + Urinalysis, Microscopic Only, with Culture if Indicated (12/11/2015 10:04 AM PST) + + + + + + | Component | Value | Ref Range | Performed | Pathologist | | | | | At | Signature | + + + + + + | White Blood | >100 (A) | 0 - 2 /HPF | [facility] | | | Cells, | | | [facility] | | | Urine | | [...] + + + + | Bacteria, | Negative | Negative /HPF | [facility] | | | Urine | | | [facility] | | | | | | MEDICAL | | | | | | CENTER - | | | | | | LABORATORY | | + + + + + + | Remark | Cultured | | [facility] | | | | | | [facility] | | | | | | MEDICAL | | | | | | CENTER - | | | | | | LABORATORY | | + + + + + + + + | Specimen | + + | Urine | + + + + + + + | Performing | Address | City/State/Zipcode | Phone Number | | Organization | | | | + + + + + | [facility] | [address] | [place] | [phone] | | [facility] | | [address] | | | - LABORATORY | | | | + + + + + [place] Pyelogram Mt (12/11/2015 8:59 AM PST) + + | Specimen | + + | | + + + + + | Narrative | Performed At | + + + | RETROGRADE PYELOGRAM: 12/11/2015 7:40 AM CLINICAL HISTORY: intra | [facility] | | op COMPARISON: None FINDINGS: Intraoperative spot C-arm views | | | from right retrograde pyelogram. Dilated right intrarenal | | | collecting system. Amorphous filling defect in the renal pelvis may | | | represent clot or tumor. Prominent irregular stricture of the mid | | | right ureter, suspicious for neoplasm. Final images show stent | | | placement. IMPRESSION - Intraoperative right retrograde pyelogram | | | images, with prominent irregular stricture of the mid ureter and | | | stenting. Dictated and Signed by: Eladio Carreno MD | | | Electronically signed: 12/11/2015 11:37 AM | | + + + + + | Procedure Note | + + | Dwain, Rad Results In - 12/11/2015 11:40 AM PST RETROGRADE PYELOGRAM: 12/11/2015 7:40 AM | | | | CLINICAL HISTORY: intra op | | | | COMPARISON: None | | | | FINDINGS: Intraoperative spot C-arm views from right retrograde pyelogram. | | | | Dilated right intrarenal collecting system. Amorphous filling defect in the | | renal pelvis may represent clot or tumor. Prominent irregular stricture of the | | mid right ureter, suspicious for neoplasm. Final images show stent placement. | | | | IMPRESSION - Intraoperative right retrograde pyelogram images, with prominent | | irregular stricture of the mid ureter and stenting. | | | | Dictated and Signed by: Eladio Carreno MD | | Electronically signed: 12/11/2015 11:37 AM | + + + +---------+ + + | Performing | Address | City/State/Zipcode | Phone Number | | Organization | | | | + +---------+ + + | [facility] | | | | + +---------+ + + POC Glucose (12/11/2015 7:15 AM PST) + +-------+ + + + | Component | Value | Ref Range | Performed | Pathologist | | | | | At | Signature | + +-------+ + + + | Glucose, | 138 | 70 - 150 mg/dL | [facility] [...] + | [facility] | [address] | [place] | [phone] | | [facility] | | [address] | | | - LABORATORY | | | | + + + + + Basic Metabolic Panel (12/11/2015 6:42 AM PST) + + + + + + | Component | Value | Ref Range | Performed | Pathologist | | | | | At | Signature | + + + + + + | Na | 139 | 136 - 149 | [facility] | | | | | mmol/L | [facility] | | | | | | MEDICAL | | | | | | CENTER - | | | | | | LABORATORY | | + + + + + + | K | 3.7 | 3.5 - 5.1 | [facility] | | | | | mmol/L | [facility] | | | | | | MEDICAL | | | | | | CENTER - | | | | | | LABORATORY | | + + + + + + | Cl | 110 (H) | 98 - 109 mmol/L | [...] + + + | Anion Gap | 8 | 3 - 16 mmol/L | [facility] | | | | | | [facility] | | | | | | MEDICAL | | | | | | CENTER - | | | | | | LABORATORY | | + + + + + + | Glucose | 161 (H) | 70 - 109 mg/dL | [facility] | | | | | [facility] | | | | | | MEDICAL | | | | | | CENTER - | | | | | | LABORATORY | | + + + + + + | BUN | 13 | 7 - 18 mg/dL | [facility] | | | | | | [facility] | | | | | | MEDICAL | | | | | | CENTER - | | | | | | LABORATORY | | + + + + + + | Creatinine | 1.18 | 0.60 - 1.30 | [facility] | | | | | mg/dL | [facility] | | | | | | MEDICAL | | | | | | CENTER - | | | | | | LABORATORY | | + + + + + + | eGFR, | >60Comment: GLOMERULAR | >=60 | [facility] | | | non- | FILTRATION | mL/min/1.73m2 | [facility] | | | [place] | RATE,ESTIMATED | | MEDICAL | | | | mL/min/1.07n7Lvft than | | CENTER - | | [...] + + + + | BUN/Creatin | 11.0 | | [facility] | | | ine [...] ST. | [address] | [place], [place] | [phone] | | [facility] | | [address] | | | - LABORATORY | | | | + + + + + CBC no Differential (12/11/2015 6:42 AM PST) + + + + + + | Component | Value | Ref Range | Performed | Pathologist | | | | | At | Signature | + + + + + + | White Blood | 8.9 | 4.0 - 11.0 K/uL | [facility] | | | Cells | | | [facility] | | | | | | MEDICAL | | | | | | CENTER - | | | | | | LABORATORY | | + + + + + + | Red Blood | 6.15 (H) | 4.30 - 5.70 | [facility] | | | Cells | | M/uL | [facility] | | | | | | MEDICAL | | | | | | CENTER - | | | | | | LABORATORY | | + + + + + + | Hemoglobin | 16.3 | 13.5 - 18.0 | [facility] | | | | | g/dL | [facility] | | | | | | MEDICAL | | | | | | CENTER - | | | | | | LABORATORY | | + + + + + + | Hematocrit | 51.1 (H) | 40.0 - 51.0 % | [facility] | | | | | | [facility] | | | | | | MEDICAL | | | | | | CENTER - | | | | | | LABORATORY | | + + + + + + | MCV | 83.2 | 83.0 - 101.0 fL | [facility] | | | | | | [facility] | | | | | | MEDICAL | | | | | | CENTER - | | | | | | LABORATORY | | + + + + + + | MCH | 26.6 (L) | 28.0 - 35.0 pg | [facility] | | | | | | [facility] | | | | | | MEDICAL | | | | | | CENTER - | | | | | | LABORATORY | | + + + + + + | MCHC | 31.9 (L) | 32.0 - 36.0 | [facility] | | | | | g/dL | [facility] | | | | | | MEDICAL | | | | | | CENTER - | | | | | | LABORATORY | | + + + + + + | RDW-CV | 17.5 (H) | <15.0 % | [facility] | | | | | | [facility] | | | | | | MEDICAL | | | | | | CENTER - | | | | | | LABORATORY | | + + + + + + | Platelet | 227 | 140 - 440 K/uL | [facility] | | | Count | | | [facility] | | | | | | MEDICAL | | | | | | CENTER - | | | | | | LABORATORY | | + + + + + + | MPV | 9.5 | fL | [facility] | | | [...] [address] | [place] | [phone] | | [facility] | | [address] | | | - LABORATORY | | | | + + + + + Surgical Pathology Exam (12/11/2015 12:00 AM PST) + + | Specimen | + + | | + + + + + | Narrative | Performed At | + + + | SPECIMEN(S): A RIGHT TRIGONE SPECIMEN(S): B RIGHT URETERAL ORIFICE | [facility] | | SPECIMEN SOURCE: A. RIGHT TRIGONE B. RIGHT URETERAL ORIFICE | [facility] | | CLINICAL HISTORY: N13.1 (Hydronephrosis with ureteral stricture, not | | | elsewhere classified), N40.1 (enlarged prostate with lower urinary | | | tract symptoms) FINAL PATHOLOGIC DIAGNOSIS: A. Right trigone, | | | biopsy: - Urothelial mucosa with a small focus of mild to moderate | | | cellular atypia and focal papillary configuration (see comment). - | | | Urothelium with ulceration and abundant stromal mixed acute and | | | chronic inflammation. - Muscularis propria present, negative for | | | unequivocal invasive tumor. B. Right ureteral orifice: - | | | Urothelial mucosa with reactive epithelial changes, and abundant | | | acute and chronic inflammation. - Negative for evidence of | | | malignancy. COMMENT: The bladder trigone contains mild to | | | moderate urothelial cellular atypia and very focal papillary | | | configuration. These findings are atypical but given the degree of | | | associated inflammation and ulceration could be reactive or | | | dysplastic in nature. Evidence of invasive tumor is not identified. | | | As part of [facility]' Quality Improvement Program, this | | | case was reviewed by another member of our pathology staff. | | | J[facility]:C2NR GROSS DESCRIPTION: A. The specimen is labeled | | | "Lokesh Stark, right trigone". Submitted in formalin is a 0.6 cm | | | aggregate of pink-garrett soft tissue fragments measuring from 0.1-0.3 cm, | | | wrapped, totally embedded in one cassette. B. The specimen is | | | labeled "right ureteral orifice". Submitted in formalin is a C-shaped | | | 1.5 x 0.5 x 0.4 cm pink-garrett soft tissue fragment, serially sectioned | | | and totally embedded in one cassette. J[facility] MICROSCOPIC | | | EXAMINATION: Histologic sections of all submitted blocks are examined | | | by light microscopy. These findings, together with the gross | | | examination, support the pathologic diagnosis. A CK AE1/3 | | | immunostain performed on block (A1) and (B1) are negative for invasive | | | tumor. J[facility] ADDITIONAL NOTES: Immunohistochemical studies | | | were performed on this case with the appropriate negative and positive | | | controls that react as expected. This test was developed and its | | | performance characteristics determined by [facility]. It | | | has not been cleared or approved by the U.S. Food and Drug | | | Administration. The FDA has determined that such clearance or | | | approval is not necessary. This test is used for clinical purposes. | | | It should not be regarded as investigational or for research. | | | [facility] is certified under the Clinical Laboratory | | | Improvement Amendments of 1988 (CLIA) as qualified to perform high | | | complexity clinical laboratory testing. PERFORMING LABORATORY: | | | Tissue processing and slide preparation were performed by [facility] | | | [facility], [address], [place] [address] | | | (Hide Selector: Lico Hernandez M.D.; CLIA#: [id number]). | | | Professional interpretation was performed by [facility], | | | [facility], [address] [facility] | | | [place] [address] (Hide Selector: Lico Hernandez M.D.; CLIA#: | | | [id number]). Diagnostician: Paul Hernandez MD Pathologist | | | Diagnostician: Lico Hernandez MD Pathologist Electronically | | | Signed 12/15/2015 | | + + + + +---------+ + + | Performing | Address | City/State/Zipcode | Phone Number | | Organization | | | | + +---------+ + + | [facility] | | | | | [facility] | | | | + +---------+ + + documented in this encounter Visit Diagnoses + + | Diagnosis | + + | Hydroureteronephrosis Hydronephrosis | + + | Enlarged prostate with lower urinary tract symptoms | + + documented in this encounter Administered Medications + +--------+ +---------+------+ + | Medication Order | MAR | Action | Dose | Rate | Site | | | Action | Date | | | | + +--------+ +---------+------+ + | bacitracin injection PRN, | Given | 12/11/19 | 50,000 | | Surgical | | Starting 12/11/15 at 0824, | | 16 8:24 | Units | | Site | | Intra-op | | AM PST | | | | + +--------+ +---------+------+ + +---+---+ | | | +---+---+ documented in this encounter
--- OUTSIDE RECORDS SUMMARY | ~2020-07-10 | XMS | Encounter Summary ---
Demographics + + + | Address | [address] | | | [place] [address] | + + + | Home Phone | | + + + | Preferred Language | Unknown | + + + | Marital Status | | + + + | Zoroastrian Affiliation | Unknown | + + + | Race | White | + + + | Ethnic Group | Not or | + + + Author + + + | Author | [facility] | | | and [place] | + + + | Organization | [facility] | | [...] [place] | | | | | [address] | | + + + + + | Roselia Hayes | ECON | Unknown | | + + + + + Care Team Providers + +------+ + | Care Chemical Recovery Operator Name | Role | Phone | + +------+ + | Cesar Ojeda MD | PCP | | + +------+ + Encounter Details +--------+ + + + + | Date | Type | Department | Care Team | Description | +--------+ + + + + | 12/12/ | Abstract | [facility] | Franck Tsai MD | | | 2018 | | CARDIOLOGY [address] | | | | | [place], | [place], [place] | | | | | [place] [address] | [address] | | | | | [phone] | | | +--------+ + + + [...] | EXTERNAL LAB: BUN | Routin | 11/28/2018 | | Results for this | | | e | | | procedure are in the | | | | | | results section. | + +--------+ + + + | EXTERNAL LAB: | Routin | 11/28/2018 | | Results for this | | GLUCOSE | e | | | procedure are in the | | | | | | results section. | + +--------+ + + + | EXTERNAL LAB: | Routin | 11/28/2018 | | Results for this | | CALCIUM | e | | | procedure are in the | | | | | | results section. | + +--------+ + + + | EXTERNAL LAB: CARBON | Routin | 11/28/2018 | | Results for this | | DIOXIDE | e | | | procedure are in the | | | | | | results section. | + +--------+ + + + | EXTERNAL LAB: | Routin | 11/28/2018 | | Results for this | | CHLORIDE | e | | | procedure are in the | | | | | | results section. | + +--------+ + + + | EXTERNAL LAB: | Routin | 11/28/2018 | | Results for this | | POTASSIUM | e | | | procedure are in the | | | | | | results section. | + +--------+ + + + | EXTERNAL LAB: SODIUM | Routin | 11/28/2018 | | Results for this | | | e | | | procedure are in the | | | | | | results section. | + +--------+ + + + | EXTERNAL LAB: EGFR | Routin | 11/28/2018 | | Results for this | | | e | | | procedure are in the | | | | | | results section. | + +--------+ + + + | EXTERNAL LAB: | Routin | 11/28/2018 | | Results for this | | CREATININE | e | | | procedure are in the | | | | | | results section. | + +--------+ + + + | BASIC METABOLIC | Routin | 11/28/2018 | | Results for this | | PANEL | e | | | procedure are in the | | | | | | results section. | + +--------+ + + + documented in this encounter Results Basic Metabolic Panel (11/28/2018) + +-------+ + + + | Component | Value | Ref Range | Performed | Pathologist | | | | | At | Signature | + +-------+ + + + | Anion Gap | 16 | 7 - 21 mmol/L | | | + +-------+ + + + | BUN/Creatin | 14.3 | 6.0 - 28.6 | | | | ine Ratio | | | | | + +-------+ + + + + + | Specimen | + + | Blood | + + External Lab: BUN (11/28/2018) + +-------+ + + + | Component | Value | Ref Range | Performed | Pathologist | | | | | At | Signature | + +-------+ + + + | BUN, | 14 | 6 - 23 | | | | External | | | | | + +-------+ + + + External Lab: Glucose (11/28/2018) + +---------+ + + + | Component | Value | Ref Range | Performed | Pathologist | | | | | At | Signature | + +---------+ + + + | Glucose, | 117 (A) | 70 - 100 | | | | External | | | | | + +---------+ + + + External Lab: Calcium (11/28/2018) + +-------+ + + + | Component | Value | Ref Range | Performed | Pathologist | | | | | At | Signature | + +-------+ + + + | Calcium, | 9.5 | 8.5 - 10.3 | | | | External | | | | | + +-------+ + + + External Lab: Carbon Dioxide (11/28/2018) + +-------+ + + + | Component | Value | Ref Range | Performed | Pathologist | | | | | At | Signature | + +-------+ + + + | Carbon | 23 | 19 - 31 | | | | Dioxide, | | | | | | External | | | | | + +-------+ + + + External Lab: Chloride (11/28/2018) + +-------+ + + + | Component | Value | Ref Range | Performed | Pathologist | | | | | At | Signature | + +-------+ + + + | Chloride, | 106 | 95 - 112 | | | | External | | | | | + +-------+ + + + External Lab: Potassium (11/28/2018) + +-------+ + + + | Component | Value | Ref Range | Performed | Pathologist | | | | | At | Signature | + +-------+ + + + | Potassium, | 3.9 | 3.6 - 5.1 | | | | External | | | | | + +-------+ + + + External Lab: Sodium (11/28/2018) + +-------+ + + + | Component | Value | Ref Range | Performed | Pathologist | | | | | At | Signature | + +-------+ + + + | Sodium, | 141 | 132 - 143 | | | | External | | | | | + +-------+ + + + External Lab: eGFR (11/28/2018) + +-------+ + + + | Component | Value | Ref Range | Performed | Pathologist | | | | | At | Signature | + +-------+ + + + | eGFR, | 74 | | | | | External | | | | | + +-------+ + + + + + | Specimen | + + | Blood | + + External Lab: Creatinine (11/28/2018) + +-------+ + + + | Component | Value | Ref Range | Performed | Pathologist | | | | | At | Signature | + +-------+ + + + | Creatinine, | 0.98 | 0.7 - 1.18 | | | | External | | | | | + +-------+ + + + + + | Specimen | + + | Blood | + + documented in this encounter Visit Diagnoses Not on filedocumented in this encounter"
--- OUTSIDE RECORDS SUMMARY | ~2020-07-10 | XMS | Encounter Summary ---
Demographics + + + | Address | [address] | | | [place] [address] | + + + | Home Phone | | + + + | Preferred Language | Unknown | + + + | Marital Status | | + + + | Sikh Affiliation | Unknown | + + + | Race | White | + + + | Ethnic Group | Not or | + + + Author + + + | Author | [facility] | | | and [place] | + + + | Organization | [facility] | | [...] [place] | | | | | [address] | | + + + + + | Roselia Hayes | ECON | Unknown | | + + + + + Care Team Providers + +------+ + | Care Windows Mobile Developer Name | Role | Phone | + [...] | | | | | | AR REIMPLANT | | | | | | [...] + + + + | 12/11/ | Hospital | [facility] | Lyndon Romero MD | | | 2016 - | Encounter | MED CTR SURGICAL | [address] [facility] | | | | | [address] | [place] | | | 12/13/ | | [place] [address] | [address] | | | 2015 | | [phone] | [phone] | | | | | | | [...] + + + | Blood Pressure | 152/78 | 12/13/2015 8:00 AM | | | | | PST | | + + + + + | Pulse | 83 | 12/13/2015 8:00 AM | | | | | PST | | + + + + + | Temperature | 35.7 C (96.3 F) | 12/13/2015 8:00 AM | | | | | PST | | + + + + + | Respiratory Rate | 20 | 12/13/2015 8:00 AM | | | | | PST | | + + + + + | Oxygen Saturation | 97% | 12/13/2015 8:00 AM | | | | | PST [...] signed by: Lyndon Romero, 12/13/2015 7:15 [facility] documented in this enc ounter Discharge Instructions Instructions Richard Fang, Workforce Management Analyst - 12/13/2015 Understanding Bladder Cancer The urinary [...] in the inner layer of the blad shirlnee lining and has notspread todeeper tissue. The patch may look almost normal or may lo ok inflamed. Each type of tumor can be present in1 or more areas of the bladder, and more than1 type can be present at the same time. [id number] [employer] [address] [place] [address], [place] [id number]. All rig ts reserved. This information is [...] from your arm. Turn off the machine. [phone] [employer] [address] [place] [address], [place] [address]. All [facility] ts reserved. This information is not intended as a substitute for professional medical care. Always follow your healthcare professional's instructions. Normal diet. Wait until Monday to resume showering. Keep urine bag lower than bladder. D rink a minimum of 2 quarts daily. Continue the antibiotic Levaquin as prescribed. Next we k MondayDecember 20 begin tamsulosin, one capsule daily as [...] most likely use a more detailed system. [id number] [employer] [address] [place] [address]. All righ ts reserved. This information is [...] capsule by | 30 | 11 | 02/21/20 | | | (FLOMAX) 0.4 mg CAPS [...] Signed by: Lyndon Romero MD, 12/12/2015 7:36 [facility] documented in this enc ounter H&P Notes [...] genitalia are prepped and draped. A 17 Georgian cystoscope was i ntroduced. Pendulous and bulbar [...] M.D.; Nov 30 2015 1:53PM PST (Author) yndon Romero MD - 0 12/09/2015 6:48 PM PST [...] treated with chronic stent. [facility] stent every 3 months is a morbid custodial proposition. Assess under cystoscopy for near future right ureteral reimplantation. 3. Probable obstructing prostate with incomplete bladder emptying. 45 minute visit, jer ponce in discussion. Addendum 11/27/15 - urine culture reports >100,000 col/ml Staphylococcus coagulase negative . Levaquin 250 mg x 7 days initiated today. Addendum 11/27/15 - 1) contrast abdomen and pelvis CT 02/20/16 at [facility] reported cholecystitis, normal kidneys, right ureteral stent [...] CT and EKG was performe d at [facility] in 2014. He is not certain of [...] Miscellaneous Notes Plan of Care - Yury Chen RN - 12/13/2015 4:58 AM PSTProblem: Patient [...] t o assessment. [facility] Ruperto Ernandez RN - 12/12/2015 7:27 [...] sing remains dry and intact lan of [facility] Yury Mcclain RN - 12/12/2015 4:56 AM PSTProblem: Patient [...] lives in his home with his in [place] . The home is a one level home with 2 steps to enter. He states his is home sick with, he thinks the flu. She will be his transportation home or his yavofws-ui-mal. Dr Ojeda, and he use the [facility] in [place] pharmacy. Ivan states he is very independent and still drives. He does not use any DME and does not saavedra ve any home oxygen. We discussed home health services, Ivan states he does not feel the need for home health. He states that they have have 2 daughters that live in [place] that come to help, a brother and [id number] that also live in [place] that are available to help out. He also stats he has a daughter that lives in [place] that is able to come stay with him if needed. No other needs noted. Electronically signed by: Serina Herring RN 12/11/2015 18:34 p Note - Lyndon Romero MD - 12/11/2015 10:35 AM PSTFormatting of this note might be different from the orig inal. [facility] OPERATIVE NOTE Pt. Name/Age/: Lokesh Stark 75 y.o. 1940 Med. Record Number: [id number] Date of Operation/Procedure: 12/11/2015 Preoperative Diagnosis: Hydroureteronephrosis [N13.1], Bladder neoplasm uncertain behavior Post-Op Diagnosis Codes: * Hydroureteronephrosis [N13.1] Postoperative Diagnosis: Same Surgeon: Lyndon Romero MD Aircraft Assembler(s): None Anesthesia Provider(s): Anesthesiologist: Aristides Gibson MD [...] the genitalia prepped and draped. A 21 Georgian cystoscope was introduced. The bladder was cleared [...] defects. A 2 8 cm x 15 Georgian ureteral access sheath was threaded over the safety wire reaching the sacro iliac level. Flexible ureteroscope was introduced and advanced the remainder of the way up to the renal pelvis. There was ureteral wall edema but no evidence of tumor, debris, or sto margareth. Ureteroscope and access sheath were withdrawn. Cystoscope was placed back over the sa fety wire. A 6 Georgian by 26 cm stent was loaded over the guidewire. Superior and coiled wi thin the right renal pelvis as seen by contrast previously instilled. Lower end of the sten t coiled within the bladder. A 24 Georgian continuous-flow resectoscope was introduced with obturator. Loop [...] A Bookwalter retractor was positioned. A 20 Georgian Thomason was inserted. 200 cc bacitracin w [...] closed with running 0 chromic. A 15 Georgian round drain was introduced t he retropubic [...] Signed by: Lyndon Romero MD, 12/11/2015 10:35 [facility] documented in this enc ounter Plan of [...] + | [facility] | [address] | [place] | [phone] | | [facility] | | [address] | | | - LABORATORY | | [...] | | | | Staphylococcus | | [facility] | | | | epidermidis | | [...] [address] | [place] | [phone] | | [facility] | | [address] | | | - LABORATORY | | [...] | | Cells, | | | [facility] | | | Urine | | | MEDICAL | | | | | | CENTER - | | | | | | LABORATORY | | + + + + + + | Red Blood | >100 (A) | 0 - 2 /HPF | [facility] | | | Cells, | | | [facility] | | [...] + | [facility] | [address] | [place], [place] | [phone] | | [facility] | | [address] | | | - LABORATORY | | | | + + + + + FL Pyelogram Retrograde (12/11/2015 8:59 AM PST) + + | [...] + | Jonnie Prakash Results In - 12/11/2015 11:40 AM PST [...] [address] | [place] | [phone] | | [facility] | | [address] | | | - LABORATORY | | [...] mL/min/1.73m2 | [facility] | | | Burmese | RATE,ESTIMATED | | MEDICAL | | | | mL/min/1.91g6Emrc than | | CENTER - | | [...] [address] | [place] | [phone] | | [facility] | | [address] | | | - LABORATORY | | [...] + | [facility] | [address] | [place] | [phone] | | [facility] | | [address] | | | - LABORATORY | | | | + + + + + Surgical Pathology Exam (12/11/2015 12:00 AM PST) + + | Specimen | + + | | + + + + + | Narrative | Performed At | + + + | SPECIMEN(S): A RIGHT TRIGONE SPECIMEN(S): B RIGHT URETERAL ORIFICE | [facility] | | SPECIMEN SOURCE: A. RIGHT [...] identified. | | | As part of [employer] [facility]' Quality Improvement Program, this | | | case was reviewed by another member of our pathology staff. | | | JVR:[facility]NR GROSS DESCRIPTION: A. The specimen is labeled [...] | and totally embedded in one cassette. JVR:[facility] MICROSCOPIC | | | EXAMINATION: Histologic sections of all submitted blocks are examined | | | by light microscopy. These findings, together with the gross | | | examination, support the pathologic diagnosis. A CK AE1/3 | | | immunostain performed on block (A1) and (B1) are negative for invasive | | | tumor. JVR:sm ADDITIONAL NOTES: Immunohistochemical studies | | | were performed on this case with the appropriate negative and positive | | | controls that react as expected. This test was developed and its | | | performance characteristics determined by [facility]. It | | | has not been cleared or approved by the U.S. Food and Drug | | | Administration. The FDA has determined that such clearance or | | | approval is not necessary. This test is used for clinical purposes. | | | It should not be regarded as investigational or for research. | | | [facility] is certified under the Clinical Laboratory | | | Improvement Amendments of 1988 (CLIA) as qualified to perform high | | | complexity clinical laboratory testing. PERFORMING LABORATORY: | | | Tissue processing and slide preparation were performed by [facility] | | | [facility], [address], [place] [address] | | | (Fuels Engineer: Lico Hernandez M.D.; CLIA#: [id number]). | | | Professional interpretation was performed by [facility], | | | [facility], [address] [facility] | | | [place] [address] (Fuels Engineer: Lico Hernandez M.D.; CLIA#: | | | [id number]). Diagnostician: Paul Hernandez MD Pathologist | | [...] | + + | Malignant neoplasm of bladder (HCC) Malignant neoplasm of bladder, part unspecified | + + | Coronary atherosclerosis Coronary atherosclerosis of unspecified type of vessel, | | yocha dehe or graft | + + | Diabetes type 2, controlled (HCC) Type II or unspecified type diabetes mellitus | | without mention of complication, not stated as uncontrolled | + + | Benign essential hypertension Essential hypertension, benign | + + documented in this encounter Administered Medications + +--------+ +-------+------+------+ | Medication Order | MAR | Action | Dose | Rate | Site | | | Action | Date | | | | + +--------+ +-------+------+------+ | aspirin EC tablet 81 mg 81 mg, | Given | 12/13/19 | 81 mg | | | | Oral, DAILY, First dose on Mon | | 16 8:51 | | | | | 12/11/15 at 1245, Do not cut or | | AM PST | | | | | crush., | | | | | | + +--------+ +-------+------+------+ +-------+ +-------+---+---+ | Given | 12/12/19 | 81 mg | | | | | 16 8:28 | | | | | | AM PST | | | | +-------+ +-------+---+---+ | Given | 12/11/19 | 81 mg | | | | | 16 4:36 | | | | | | PM PST | | | | +-------+ +-------+---+---+ +---+---+ | | | +---+---+ + +-------+ +-------+---+---+ | famotidine (PEPCID) tablet 20 | Given | 12/13/19 | 20 mg | | | | mg 20 mg, Oral, 2 TIMES DAILY, | | 16 8:51 | | | | | First dose on Mon12/11/15 at | | AM PST | | | | | 1245, Post-op/Phase II | | | | | | + +-------+ +-------+---+---+ +-------+ +-------+---+---+ | Given | 12/12/19 | 20 mg | | | | | 16 8:26 | | | | | | PM PST | | | | +-------+ +-------+---+---+ | Given | 12/12/19 | 20 mg | | | | | 16 8:27 | | | | | | AM PST | | | | +-------+ +-------+---+---+ +---+---+ | | | +---+---+ + +-------+ +---------+---+---+ | HYDROmorphone (DILAUDID) | Given | 12/11/19 | 0.25 mg | | | | injection 0.5 mg 0.5 mg, | | 16 11:48 | | | | | Intravenous, EVERY 5 MIN PRN, | | AM PST | | | | | Pain, Starting 12/11/15 at | | | | | | | 1129, Maximum total dose 4 mg. | | | | | | | PACU IV Narcotic Priority: Only | | | | | | | use fentanyl for immediate | | | | | | | post-op pain (one dose) or | | | | | | | breakthrough pain when any other | | | | | | | IV narcotics ordered have been | | | | | | | ineffective (if ordered). If | | | | | | | both morphine and hydromorphone | | | | | | | are ordered, use morphine first, | | | | | | | and use hydromporphone if | | | | | | | morphine ineffective., | | | | | | | Recovery/Phase I | | | | | | + +-------+ +---------+---+---+ +-------+ +---------+---+---+ | Given | 12/11/19 | 0.25 mg | | | | | 16 11:37 | | | | | | AM PST | | | | +-------+ +---------+---+---+ +---+---+ | | | +---+---+ + +-------+ +-------+---+---+ | ketorolac (TORADOL) injection | Given | 12/11/19 | 30 mg | | | | 30 mg 30 mg, Intravenous, EVERY | | 16 4:36 | | | | | 8 HOURS PRN, Pain, Starting Fri | | PM PST | | | | | 12/11/15 at 1229, For 48 hours, If | | | | | | | urine output is less than | | | | | | | 240mL/8 hours (30 mL/hr) or if | | | | | | | signs of bleeding, contact MD and | | | | | | | hold ketorolac., Post-op/Phase | | | | | | | II | | | | | | + +-------+ +-------+---+---+ +---+---+ | | | +---+---+ + +---------+ +--------+-------+---+ | lactated ringers (LR) infusion | New Bag | 12/11/19 | 1,000 | 100 | | | at 100 mL/hr, Intravenous, | | 16 8:44 | mLs | mL/hr | | | CONTINUOUS, Starting Mon12/11/15 | | PM PST | | | | | at 1245, Post-op/Phase II | | | | | | + +---------+ +--------+-------+---+ +---------+ +--------+-------+---+ | New Bag | 12/11/19 | 1,000 | 100 | | | | 16 12:47 | mLs | mL/hr | | | | PM PST | | | | +---------+ +--------+-------+---+ +---+---+ | | | +---+---+ + +-------+ +--------+---+---+ | levofloxacin (LEVAQUIN) tablet | Given | 12/13/19 | 250 mg | | | | 250 mg 250 mg, Oral, DAILY, | | 16 8:51 | | | | | First dose on Mon12/11/15 at | | AM PST | | | | | 1245, Give 2 hours before or 2 | | | | | | | hours after antacids, iron, or | | | | | | | zinc., | | | | | | + +-------+ +--------+---+---+ +-------+ +--------+---+---+ | Given | 12/12/19 | 250 mg | | | | | 16 8:26 | | | | | | AM PST | | | | +-------+ +--------+---+---+ | Given | 12/11/19 | 250 mg | | | | | 16 4:36 | | | | | | PM PST | | | | +-------+ +--------+---+---+ +---+---+ | | | +---+---+ + +-------+ +-------+---+---+ | lisinopril (PRINIVIL, ZESTRIL) | Given | 12/13/19 | 20 mg | | | | tablet 20 mg 20 mg, Oral, DAILY, | | 16 8:50 | | | | | First dose on 12/12/15 at | | AM PST | | | | | 0900 | | | | | | + +-------+ +-------+---+---+ +-------+ +-------+---+---+ | Given | 12/12/19 | 20 mg | | | | | 16 8:27 | | | | | | AM PST | | | | +-------+ +-------+---+---+ +---+---+ | | | +---+---+ + +-------+ +--------+---+---+ | metFORMIN (GLUCOPHAGE) tablet | Given | 12/13/19 | 500 mg | | | | 500 mg 500 mg, Oral, 2 TIMES | | 16 8:50 | | | | | DAILY WITH BREAKFAST & DINNER, | | AM PST | | | | | First dose on Mon12/11/15 at | | | | | | | 1700, Stop metFORMIN prior to | | | | | | | procedures using IV iodinated | | | | | | | contrast & continue to hold 48 | | | | | | | hours after receiving IV | | | | | | | iodinated contrast. Don't resume | | | | | | | until renal function is normal., | | | | | | + +-------+ +--------+---+---+ +-------+ +--------+---+---+ | Given | 12/12/19 | 500 mg | | | | | 16 6:40 | | | | | | PM PST | | | | +-------+ +--------+---+---+ | Given | 12/12/19 | 500 mg | | | | | 16 8:28 | | | | | | AM PST | | | | +-------+ +--------+---+---+ +---+---+ | | | +---+---+ + +-------+ + +---+---+ | oxyCODONE-acetaminophen | Given | 12/13/19 | 1 tablet | | | | (PERCOCET) 5-325 mg per tablet | | 16 3:15 | | | | | 1-2 tablet 1-2 tablet, Oral, | | AM PST | | | | | EVERY 4 HOURS PRN, Pain, Starting | | | | | | | 12/11/15 at 1229, If | | | | | | | ineffective use Oxycodone if | | | | | | | ordered. If not tolerated use | | | | | | | Wall 10/325 if ordered., | | | | | | | Post-op/Phase II | | | | | | + +-------+ + +---+---+ +-------+ + +---+---+ | Given | 12/12/19 | 1 tablet | | | | | 16 8:27 | | | | | | AM PST | | | | +-------+ + +---+---+ +---+---+ | | | +---+---+ + +-------+ +--------+---+---+ | senna (SENOKOT) tablet 8.6 mg | Given | 12/13/19 | 8.6 mg | | | | 8.6 mg, Oral, 2 TIMES DAILY, | | 16 8:51 | | | | | First dose on Mon12/11/15 at | | AM PST | | | | | 1245, If docusate ineffective or | | | | | | | not ordered, Post-op/Phase II | | | | | | + +-------+ +--------+---+---+ +-------+ +--------+---+---+ | Given | 12/12/19 | 8.6 mg | | | | | 16 8:26 | | | | | | PM PST | | | | +-------+ +--------+---+---+ | Given | 12/12/19 | 8.6 mg | | | | | 16 8:29 | | | | | | AM PST | | | | +-------+ +--------+---+---+ +---+---+ | | | +---+---+ documented in this encounter
--- OUTSIDE RECORDS SUMMARY | ~2020-07-10 | XMS | Encounter Summary ---
Demographics + + + | Address | [address] | | | [place] [address] | + + + | Home Phone | | + + + | Preferred Language | Unknown | + + + | Marital Status | | + + + | Anglican Affiliation | Unknown | + + + | Race | White | + + + | Ethnic Group | Not or | + + + Author + + + | Author | [facility] | | | and [place] | + + + | Organization | [facility] | | [...] [place] | | | | | [address] | | + + + + + | Roselia Hayes | ECON | Unknown | | + + + + + Care Team Providers + +------+ + | Care Administrative Nursing Supervisor Name | Role | Phone | + +------+ + | Cesar Ojeda MD | PCP | | + +------+ + Encounter Details +--------+ + + + + | Date | Type | Department | Care Team | Description | +--------+ + + + + | 06/15/ | Imaging | [facility] | Provider, | | | 2018 | Exam | [facility] | MD [address] | | | | | IMAGING [address] | | | | | [address] [place] | [place] [address] | | | | | [place] [address] | | | | | | [phone] | | | +--------+ + + + [...] +--------+ + + + | XR CHEST 1 VIEW | Routin | 06/11/2018 | | Results for this | | | e | 2:10 PM | | procedure are in the | | | | PDT | | results section. | + +--------+ + + + documented in this encounter Results XR Chest 1 Vw (06/11/2018 2:10 PM PDT) + + | Specimen | + + | | + + + + + | Narrative | Performed At | + + + | External films for comparison only | [facility] | | | | | No results will be in the chart. | | + + + + +---------+ + + | Performing | Address | City/State/Zipcode | Phone Number | | Organization | | | | + +---------+ + + | [facility] | | | | + +---------+ + + documented in this encounter Visit Diagnoses Not on filedocumented in this encounter"
--- OUTSIDE RECORDS SUMMARY | ~2020-07-10 | XMS | Encounter Summary ---
Demographics + + + | Address | [address] | | | [place] [address] | + + + | Home Phone | | + + + | Preferred Language | Unknown | + + + | Marital Status | | + + + | Congregation Affiliation | Unknown | + + + [...] [place] | | | | | [address] | | + + + + + | Roselia Hayes | ECON | Unknown | | + + + + + Care Team Providers + +------+ + | Care Plant Taxonomist Name | Role | Phone | + +------+ + | Cesar Ojeda MD | PCP | | + +------+ + Reason for Visit +--------+--------+ + | Reason | Onset | Comments | | | Date | | +--------+--------+ + | Other | 08/17/ | patient having issues | | | 2017 | | +--------+--------+ + Encounter Details +--------+ + + + + | Date | Type | Department | Care Team | Description | +--------+ + + + + | 08/17/ | Telephone | [facility] | Franck Tsai MD | Other (patient | | 2017 | | CARDIOLOGY [address] | [address] | having issues) | | | | [place], | [place] | | | | | [place] [address] | [id number] | | | | | [phone] | | | +--------+ + + + [...] Telephone Encounter - Priscilla Durant RN - 08/20/2018 12:47 PM PDTCalled and spoke with R on, he has not had a repeat of the symptoms other than just a slight bit the second night. He will let us know if it reoccurs again ...........................................Priscilla Durant RN on 08/20/18 at 12:49 elephone Encounter - Priscilla Durant RN - 08/17/2018 2:16 PM PDTRon called to report that starting last nig ht he noticed a feeling of a weight on his chest when he laid down to sleep and he was short of breath, it went away when he got up. As long as he is sitting up or standing up he does not have that sensation. He did just start his cardiac rehab yesterday. Ivan is advised when to seek emergent medical attention. He was advised to otherwise monito r and then call me on Monday to let me know how he is doing. If he is still having issues w e will get him in to see someone next week ...........................................Priscilla Durant RN on 08/17/18 at 14:21 documented in this encounter Plan of Treatment Not on filedocumented as of this encounter Visit Diagnoses Not on filedocumented in this encounter"
--- OUTSIDE RECORDS SUMMARY | ~2020-07-10 | XMS | Encounter Summary ---
Demographics + + + | Address | [address] | | | [place] [address] | + + + | Home Phone [...] [place] | | | | | [address] | | + + + + + | Roselia Hayes | ECON | Unknown | | + + + + + Care Team Providers + +------+ + | Care Office Machines Sales Representative Name | Role | Phone | [...] Description | +--------+---------+ + + + | 06/11/ | Surgery | [facility] | Franck Tsai MD | CV [facility] | | 2018 | | MED CTR [facility] | [address] | | | | | [address] | [place] | | | | | [place] | [address] | | | | | [address] | | | | | | [phone] | | | +--------+---------+ + + + [...] + + + | Blood Pressure | - | - | | + + + + + | Pulse | - | - | | + + + + + | Temperature | 36.4 C (97.5 F) | 06/11/2018 3:41 PM | | | | | PDT | | + + + + + | Respiratory Rate | - | - | | + + + + + | Oxygen Saturation | - | - | | + + + + + | Inhaled Oxygen | - | - | | | Concentration | | | | + + + + + | Weight | - | - | | + + + + + | Height | - | - | | + + + + + | Body Mass Index | - | - | | + [...] 1 year follow-up target versus signs 6.2% [place], [place] HOSPITALIST DISCHARGE SUMMARY Pt. Name/Age/: Lokesh [...] Generic drug: glucose blood test strips ONETOUCH DELICA LANCETS FINE Misc vitamin C 1000 MG tablet Take 1,000 mg by mouth Daily. HOSPITAL COURSE: Please refer to the H&P for full details and the most recent rounding rounding (progress) n ote. In short 77-year-old gentleman with prior coronary bypass surgery and PCI of the right post erior sitting artery in 2016 and 2017 who had complained of ongoing bruising and [...] PROCEDURES AND CONSULTS: Procedures coronary arteriography of standing rock coronary arteries and bypass grafts, PTCA right [...] signed by: Franck Tsai MD, 06/13/2018 10:32 [facility] Portions of this chart may have been created with Splyst voice recognition software. Occasi onal wrong-word or [...] encounter Progress Notes Franck Tsai MD - 06/12/2018 3:16 PM PDT PATIENT [...] 81 mg 81 mg Oral Daily Franck sTai MD 81 mg at 06/12/18 0 855 [...] associated with acute m yocardial infarction. The [employer] (ACC) recommends a decision [...] associated with acute m yocardial infarction. The [place] (ACC) recommends a decision [...] Inferior leads Confirmed by RAMÓN DOWD MD ([id number]) on 06/12/2018 6:07:13 AM Troponin I 06/12/2018 74.62* <0.06 ng/mL Final Reference Ranges: 0.00-0.06 = NORMAL >0.06 = SUSPICIOUS FOR MYOCARDIAL DAMAGE NOTE: Values greater than 0.50 ng/mL have been shown to be strongly associated with acute m yocardial infarction. The [employer] (ACC) recommends a decision [...] Velocity 06/12/2018 7.09 cm/s Final MV Deceleration Winkler 06/12/2018 486.36 cm/s2 Final MV Deceleration Time [...] Franck Tsai MD, 06/12/2018 15:16 olph, Sawyer Tanner, [facility] - 06/12/2018 12:47 PM PDT PHARMACY [...] and directions X Pharmacy list names: [facility] [place] ACID PATROLLER (Prescription Monitoring Program) X [employer] insurance reported [...] Incorrect- changed to correct form Best possible FILM COATER medication list after pharmacy review: PT REPORTED TAKING NOT TAKING Medication Sig Last Dose Dispense Doc. Provider artificial tears (REFRESH PLUS) 0.5% SOLN Place 1 drop into both eyes every 4 hours as nee ded (dry eyes). Taking Historical Provider, Ascorbic Acid (VITAMIN C) 1000 MG tablet [...] for Chest pain. Taking 25 tablet Mi Mulligan MD omeprazole (PRILOSEC) 20 mg capsule Take 20 mg by mouth every morning (before breakfast). Taking Yadi Pacheco MD ONE TOUCH ULTRA TEST strip Yadi Pacheco MD ONETOUCH DELJAIME LANCETS FINE [facility] Historical ProviderMD Medication review performed and electronically signed by Odilia Segovia, Boxing Instructor 2017 12:19 Electronically signed by: Sawyer Hood [...] 500 mg by mouth 2 times daily. Patistephanie nt is taking two Twice a day [...] a 77 y.o. male who presents to [facility] in stable in [place] with new onset chest pain at [...] Cor Angio; Surgeon: Mi Mulligan MD; Location: [facility] CV LAB CARDIAC CATHERIZATION N/A 12/25/2016 Procedure: CV LHC; Surgeon: Mi Mulligan MD; Location: [facility] CV LAB CHOLECYSTECTOMY, LAPAROSCOPIC CORONARY ARTERY BYPASS GRAFT CYSTOSCOPY INSERTION/REMOVAL STENT/STONE Right February 2013, 09/11/2015 PROSTATECTOMY N/A 12/11/2015 Procedure: T.U.R.B.T., Retrograde Pyelogram, Reimplantation of Right Ureter Ureteroneocyst ostomy (Open Procedure); Surgeon: Lyndon Romero MD; Location: [facility] MAIN OR TONSILLECTOMY TURBT TURP N/A 12/02/2016 Procedure: Cyber Laser Prostate Vaporization, T.U.R. Bladder Tumor; Surgeon: Lyndon rosenthal MD; Location: [facility] MAIN OR UMBILICAL HERNIA REPAIR URETEROSCOPY Right 01/29/2016 Procedure: cystoscopy, right ureteroscopy with right ureter stent removal; Surgeon: Lyndon Romero MD; Location: [facility] MAIN OR Social History Social History [...] - 06/11/2018 3:37 PM [facility], pt re ported CP, SOB at [facility]. Pt denied pain upon arrival here. Pt arrived on amiodarone dri p and heparin drip, Medications continued and pt transported to laborer ship[facility]. Electronically si gned by Palmira Wolfe RN [...] RN at 06/13/2018 4:47 AM PDTPlan of Rosio Abarca RN - 06/12/2018 5:55 PM PDTProblem: Patient [...] at side of bed. Patient's daughter Roselia ([phone]) present and supportive a t bedside. Demographics, PCP (Dr. Ojeda), and Pharmacy ([facility]) verified. Patient requesting to add his daughter Roselia to demographic information. CM updated in [facility]. Discharge Planning: Ivan is an independent 77 y.o. At baseline. He verbalizes that he does not own or util ize any DME at baseline and still drives. Patient lives at home in a single level home with his spouse Guera. He states that there are "a couple" of steps to get into the home that h e is able to navigate without difficulty. Patient denies any questions, concerns, or needs regarding anticipated plan to return home when medically stable. Patient's Guera ([phone]) will provide transportatio n home and be [...] + | CULTURE, MRSA | Routin | 06/11/2018 | | Results [...] [address] | [place] | [phone] | | [facility] | | [address] | | | - LABORATORY | | [...] | | | | | results. [employer] | | | | | | [employer] [...] ST. | [address] | [place] | [phone] | | [facility] | | [address] | | | - LABORATORY | | | | + + + + + Troponin I (06/12/2018 5:49 PM PDT) + + + + + + | Component | Value | Ref Range | Performed | Pathologist | | | | | At | Signature | + + + + + + | Troponin I | 53.99 ()Comment: | <0.06 ng/mL | [facility] | | | | Consistent with Previous | | [facility] | | | | Results Reference | [...] | | | | | | [employer] | | | | | [...] [address] | [place] | [phone] | | [facility] | | [address] | | | - LABORATORY | | [...] | | | | | | n Winkler | | | | | + +--------+ [...] 1.67 (H) | 0.60 - 1.30 | [facility] | | | | | mg/dL | [facility] | | | | | | MEDICAL | | | | | | CENTER - | | | | | | LABORATORY | | + + + + + + | eGFR, | 40 (L)Comment: | >=60 | [facility] | | | non- | GLOMERULAR FILTRATION | mL/min/1.73m2 | [facility] | | | [employer] | RATE,ESTIMATED | | MEDICAL | | | | mL/min/1.26g4Vnnl than | | CENTER - | | [...] [address] | [place] | [phone] | | [facility] | | [address] | | | - LABORATORY | | [...] [address] | [place] | [phone] | | [facility] | | [address] | | | - LABORATORY | | [...] | | | | | | [employer] | | | | | [...] [address] | [place] | [phone] | | [facility] | | [address] | | | - LABORATORY | | [...] | | | | | | RAMÓN ([id number]) on | | | | | | [...] + | [facility] | [address] | [place] | [phone] | | [facility] | | [address] | | | - LABORATORY | | [...] | | | | | | [employer] | | | | | [...] + | [facility] | [address] | [place] | [phone] | | [facility] | | [address] | | | - LABORATORY | | [...] (H) | 22 - 269 U/L | [place] | | | | | | [address]. [address] | [place] | [phone] | | [facility] | | [address] | | | - LABORATORY | | [...] [address] | [place] | [phone] | | [facility] | | [address] | | | - LABORATORY | | [...] | | | | | | [employer] | | | | | [...] + + | Performing | Address | City/State/[facility] | Phone Number | | Organization | | | | + + + + + | [facility] | [address] | [place] | [phone] | | [facility] | | [address] | | | - LABORATORY | | [...] | | | | RAMÓN DOWD MD ([id number]) | | | | | | on [...] [address] | [place] | [phone] | | [facility] | | [address] | | | - LABORATORY | | [...] ST. | [address] | [place] | [phone] | | [facility] | | [address] | | | - LABORATORY | | [...] | Clotting | | second(s) | [facility] | | | Time, POC | [...] [address] | [place] | [phone] | | [facility] | | [address] | | | - LABORATORY | | [...] ACUTE | | | | | | VA / STEMI Consider | | | | [...] | | | | RAMÓN DOWD MD ([id number]) | | | | | | on [...] 18 8:21 | | | | | Travon 06/12/18 at 0900, Do not give | | AM PDT | | | | | if already taken today., | | | | | | | Post-op/Phase II | | | | | | + +--------+ +-------+------+------+ +-------+ +-------+---+---+ | Given | 06/12/20 | [...] | +---+---+ + +-------+ + +---+---+ | eptifibatide (INTEGRILIN) 2 | Given | 06/11/20 | 7.02 mLs | | | | mg/mL injection ONCE PRN, | | 18 4:18 | | | | | Starting 06/11/18 at 1606, | | PM PDT | | | | | Intra-op | | | | | | + +-------+ + +---+---+ +-------+ + +---+---+ | Given | 06/11/20 | 7.02 mLs | | | | | 18 4:06 | | | | | | PM PDT | | | | +-------+ + +---+---+ +---+---+ | | | +---+---+ + +-------+ +--------+---+---+ | fentaNYL (PF) injection ONCE | Given | 06/11/20 | 25 mcg | | | | PRN, Starting 06/11/18 at | | 18 3:47 | | | | | 1547, Intra-op | | PM PDT | | | | + +-------+ +--------+---+---+ +---+---+ | | | +---+---+ + +-------+ +--------+---+---+ | heparin 1,000 units/mL | Given | 06/11/20 | 4,000 | | | | injection ONCE PRN, Starting Mon | | 18 4:25 | Units | | | | 06/11/18 at 1551, Intra-op | | PM PDT | | | | + +-------+ +--------+---+---+ +-------+ +--------+---+---+ | Given | 06/11/20 | 5,000 | | | | | 18 3:51 | Units | | | | | PM PDT | | | | +-------+ +--------+---+---+ +---+---+ | | | +---+---+ + +-------+ +---------+---+---+ | iohexol (OMNIPAQUE 350) 350 | Given | 06/11/20 | 130 mLs | | | | mg/mL injection ONCE PRN, | | 18 5:17 | | | | | Starting 06/11/18 at 1706, | | PM PDT | | | | | Intra-op | | | | | | + +-------+ +---------+---+---+ +-------+ +---------+---+---+ | Given | 06/11/20 | 130 mLs | | | | | 18 5:06 | | | | | | PM PDT | | | | +-------+ +---------+---+---+ +---+---+ | | | +---+---+ + +-------+ +---------+---+ + | lidocaine 1% injection ONCE | Given | 06/11/20 | 3.5 mLs | | Surgical | | PRN, Starting 06/11/18 at | | 18 3:46 | | | Site | | 1546, Intra-op | | PM PDT | | | | + +-------+ +---------+---+ + +---+---+ | | | +---+---+ + +-------+ [...] | | | + +---+ + +-------+ +------+---+---+ | midazolam (VERSED) 1 mg/mL | Given | 06/11/20 | 2 mg | | | | injection ONCE PRN, Starting Mon | | 18 3:44 | | | | | 06/11/18 at 1544, Intra-op | | PM PDT | | | | + +-------+ +------+---+---+ + +---+ | | | + +---+ [...] | | | + +---+ + +-------+ +---------+---+---+ | nitroglycerin 100 mcg/mL | Given | 06/11/20 | 200 mcg | | | | syringe ONCE PRN, Starting Mon | | 18 4:27 | | | | | 06/11/18 at 1553, Intra-op | | PM PDT | | | | + +-------+ +---------+---+---+ +-------+ +---------+---+---+ | Given | 06/11/20 | 300 mcg | | | | | 18 4:10 | | | | | | PM PDT | | | | +-------+ +---------+---+---+ | Given | 06/11/20 | 300 mcg | | | | | 18 3:53 | | | | | | PM PDT | | | | +-------+ +---------+---+---+ +---+---+ | | | +---+---+ + +-------+ +------+---+---+ | ondansetron (ZOFRAN) injection | Given | 06/11/20 | 4 mg | | | | ONCE PRN, Starting 06/11/18 | | 18 4:02 | | | | | at 1602, Intra-op | | PM PDT | | [...] | | +---+---+ + +-------+ +--------+---+---+ | ticagrelor (BRILINTA) tablet | Given | 06/11/20 | 180 mg | | | | ONCE PRN, Starting Mon06/11/18 at | | 18 3:53 | | | | | 1553, Intra-op | | PM PDT | | | | + +-------+ +--------+---+---+ +---+---+ | | | +---+---+ + +-------+ +------+---+---+ | verapamil injection ONCE PRN, | Given | 06/11/20 | 1 mg | | | | Starting Mon06/11/18 at 1602, | | 18 4:18 | | | | | Intra-op | | PM PDT | | | | + +-------+ +------+---+---+ +-------+ +------+---+---+ | Given | 08/20/20 | 1 mg | | | | | 18 4:04 | | | | | | PM PDT | | | | +-------+ +------+---+---+ | Given | 08/20/20 | 1 mg | | | | | 18 4:02 | | | | | | PM PDT | | | | +-------+ +------+---+---+ +---+---+ | | | +---+---+ documented in this encounter
--- OUTSIDE RECORDS SUMMARY | ~2020-07-10 | XMS | Encounter Summary ---
Demographics + + + | Address | [address] | | | [place] [address] | + + + | Home Phone [...] [place] | | | | | [address] | | + + + + + | Roselia Hayes | ECON | Unknown | | + + + + + Care Team Providers + +------+ + | Care [employer] Teacher Name | Role | Phone | [...] Description | +--------+---------+ + + + | 10/27/ | [facility] | [facility] [place] [facility] Mi Mulligan, | Coronary | | 2016 | Visit | CARDIOLOGY [address] | MD [address] | atherosclerosis due | | | | [place], | [place], [place] | to lipid rich plaque | | | | [place] [address] | [address] | (Primary Dx); | | | | [phone] | | NSTEMI (non-ST | | | | | | elevated myocardial | | | | | | infarction) ([facility]); | | | | | | Hx of CABG; S/P | | | | | | coronary artery | | | | | | stent placement | +--------+---------+ + + + Social History [...] + + + | Blood Pressure | 110/62 | 10/27/2016 10:42 AM | | | | | PST | | + + + + + | Pulse | 62 | 10/27/2016 10:42 AM | | | | | PST | | + + + + + | Temperature | - | - | | + + + + + | Respiratory Rate | 14 | 10/27/2016 10:42 AM | | | | | PST | | + + + + + | Oxygen Saturation | - | - | | + + + + + | Inhaled Oxygen | - | - | | | Concentration | | | | + + + + + | Weight | 79.4 kg (175 lb) | 10/27/2016 10:42 AM | | | | | PST | | + + + + + | Height | - | - | | + + + + + | Body Mass Index | 27.41 | 07/28/2016 8:17 AM | | | [...] encounter Progress Notes Mi Mulligan MD - 10/27/2016 10:48 AM PSTFormatting of this note might be different fr om the original. PATIENT NAME: Lokesh Stark : 1940: AGE: 76 y.o. PRIMARY CARE: Cesar Ojeda MD INPATIENT FOLLOW UP VISIT Date of Service: 10/27/2016 HISTORY OF PRESENT ILLNESS: Lokesh Stark is a 76 y.o. male with a history of NSTEMI 07/02/16 . He is being seen t debbi for follow up. He feels well he has no chest pain or dyspnea. He has not bleeding. He is now scheduled t o see Dr Romero on the . He has not been back since his stent. He does not know if Dr Romero is planning to do a procedure that day. MEDICAL, SURGICAL, AND PERSONAL HISTORY Past Medical, Surgical, Family, and Social History are reviewed in EPIC. CURRENT PROBLEMS Patient Active Problem List Diagnosis Malignant neoplasm of bladder Coronary atherosclerosis Diabetes type 2, controlled Benign essential hypertension NSTEMI (non-ST elevated myocardial infarction) S/P CABG x 4 Dyslipidemia Cath 06/2016 Aortic Root: No AI or dissection. 2 [...] the LCX 3. 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 Patent MARY to the LAD 5. SVG to the Diagonal: Excellent graft. Feeds the diagonal antegrade and the proximal LAD retrograde. competitive flow from MARY to the distal vessel 6. SVG to the PDA: Excellent graft. 99% stenosis of the PDA just beyond the insertion of the graft CURRENT MEDICATIONS Current Outpatient Prescriptions Medication Sig [...] numb all over after an injection" ROS Negative - no bleeding and no cardiac symptoms OBJECTIVE: PHYSICAL EXAM BP 110/62 mmHg | Pulse 62 | Resp 14 | Wt 79.379 kg (175 lb) General appearance: no acute distress. Eyes: no icterus. Lids normal Mouth: no cyanosis. Neck: No lymphadenopathy in the neck or supraclavicular area. Good carotid upstroke. No bruits. No JVD Lungs: CTA Heart: normal sounds 1/6 Murmur. No S3 Abdomen: soft. No masses and no bruit Ext: No CCE in upper or lower extremities Neuro: Awake and oriented x3 LAB RESULTS: LIPID Lab Results Component Value Date CHOL 101* 07/03/2016 TRIG 134 07/03/2016 HDL 33 07/03/2016 LDL 41 07/03/2016 CHOLHDL 3.5 08/01/2016 LDLEX 47 08/01/2016 HDLEX 32.5* 08/01/2016 TRIGEX 166* 08/01/2016 CHOLEX 113 08/01/2016 CHEMISTRY Lab Results Component Value Date GLU 131* 07/04/2016 GLUEX 179* 08/01/2016 NA 141 07/04/2016 NAEX 139 08/01/2016 K 3.3* 07/04/2016 KEX 3.7 08/01/2016 CL 108 07/04/2016 CLEX 107 08/01/2016 CO2 23* 07/04/2016 CO2EX 21 08/01/2016 CALCIUM 8.7 07/04/2016 ALKPHOS 54 07/02/2016 AST 33 07/02/2016 ASTEX 23 08/01/2016 ALT 32 07/02/2016 ALTEX 38 08/01/2016 BILITOT 0.7 07/02/2016 CREA 0.95 07/04/2016 BUN 15 07/04/2016 EGFREX 76 08/01/2016 CREEX 0.97 08/01/2016 HEMATOLOGY Lab Results Component Value Date WBC 9.7 07/04/2016 HGB 14.3 07/04/2016 HCT 42.5 07/04/2016 PLT 190 07/04/2016 ASSESSMENT: NSTEMI 07/02/2016 Bare metal stent to the RCA beyond the SVG Bladder tumor Type 2 diabetes HTN - well controlled Dyslipidemia H/O CABG X 4 in 2003 PLAN: Call placed to Dr Romero R/E whether Plavix needs to be stopped They suggest a week off of Plavix and they can restart it after Follow up with me in 3 months Call if problems Electronically signed by: Mi Mulligan MD [facility] 10/27/2016 Portions of this chart may have been created with [employer] voice recognition software. Occasi onal wrong-word or [...] aortocoronary bypass status | + + | S/P coronary artery stent placement Postsurgical percutaneous transluminal coronary | | angioplasty status | + + documented in this encounter
--- OUTSIDE RECORDS SUMMARY | ~2020-07-10 | XMS | Encounter Summary ---
Demographics + + + | Address | [address] | | | [place] [address] | + + + | Home Phone | | + + + | Preferred Language | Unknown | + + + | Marital Status | | + + + | Caodaism Affiliation | Unknown | + + + | Race | White | + + + | Ethnic Group | Not or | + + + Author + + + | Author | [facility] | | | and [place] | + + + | Organization | [facility] | | [...] [place] | | | | | [address] | | + + + + + | Roselia Hayes | ECON | Unknown | | + + + + + Care Team Providers + +------+ + | Care Bellhop Captain Name | Role | Phone | + +------+ + | Cesar Ojeda MD | PCP | | + +------+ + Encounter Details +--------+ + + + + | Date | Type | Department | Care Team | Description | +--------+ + + + + | 01/27/ | Orders Only | [facility] [place] | Priscilla Durant, | | | 2019 | | CARDIOLOGY [address] | RN | | | | | [place], | | | | | | [place] [address] | | | | | | [phone] | | | +--------+ + + + [...]
--- OUTSIDE RECORDS SUMMARY | ~2020-07-10 | XMS | Encounter Summary ---
Demographics + + + | Address | [address] | | | [place] [address] | + + + | Home Phone | | + + + | Preferred Language | Unknown | + + + | Marital Status | | + + + | Pentecostal Affiliation | Unknown | + + + | Race | White | + + + | Ethnic Group | Not or | + + + Author + + + | Author | [facility] | | | and [place] | + + + | Organization | [facility] | | | [...] [place] | | | | | [id number] | | + + + + + | Roselia Hayes | ECON | Unknown | | + + + + + Care Team Providers + +------+ + | Care Cooking Chef Name | Role | Phone | + [...] Description | +--------+---------+ + + + | 04/17/ | Office | [facility] | Franck Tsai MD | Atherosclerosis of | | 2019 | Visit | CARDIOLOGY [address] | makah coronary | | | | [place], | [place], [place] | artery of makah | | | | [place] [address] | [address] | heart without angina | | | | [phone] | | pectoris (Primary | | | [...] + + + | Blood Pressure | 118/68 | 04/17/2019 8:42 AM | | | | | PDT | | + + + + + | Pulse | 60 | 04/17/2019 8:42 AM | | | | | PDT | | + + + + + | Temperature | - | - | | + + + + + | Respiratory Rate | 16 | 04/17/2019 8:42 AM | | | | | PDT | | + + + + + | Oxygen Saturation | - | - | | + + + + + | Inhaled Oxygen | - | - | | | Concentration | | | | + + + + + | Weight | 72 kg (158 lb 11.7 | 04/17/2019 8:42 AM | | | | oz) | PDT | | + + + + + | Height | 170.2 cm (5' 7") | 04/17/2019 8:42 AM | | | | | PDT | | + + + + + | Body Mass Index | 24.86 | 04/17/2019 8:42 AM | | | | | PDT [...] documented as of this encounter H&P Notes Franck Tsai MD - 04/17/2019 9:00 AM PDT PATIENT NAME: Lokesh Stark : 1940: AGE: 78 y.o. PRIMARY CARE: Cesar Ojeda MD CARDIOLOGY CLINIC PROGRESS NOTE Mr. Stark presents for clinic follow-up. Since his prior visit of 12/06/18, he has general ly been stable from a cardiac viewpoint. He was seen at [facility] emergency depa rtment in [facility] on March 23 with complaints of upper back pain that was similar to pain he had experienced during a previous acute coronary syndrome. The patient ruled out fo r acute myocardial infarction and was discharged home. He has had no subsequent episodes of back or chest pain. LDL cholesterol dated 0 03/25/19: Total cholesterol 116 triglyceride 88 HDL 41 calculated LDL 57. He continues on dual antiplatelet therapy indefinitely given his history of stent thrombosis. MEDICATIONS: Current Outpatient Medications Medication Sig Dispense [...] tablet Take 300 mg x 1 on 12 pm then take 75 mg daily 34 [...] potassium chloride (KLOR-CON) 10 mEq CR tablet Daily. No current facility-administered medications for this visit. ALLERGIES Allergies Allergen Reactions Aspartame Hives and Nausea And Vomiting Canola Oil [Vegetable Oil] Sensitivity Severe congestion Cats [Cat Hair Extract] Sensitivity Itching eye, runny nose Penicillins Other (See Comments) "I went numb all over after an injection" PHYSICAL EXAM Vital signs: Vitals: 04/17/19 0842 BP: 118/68 Pulse: 60 Resp: 16 Admit Weight: Weight: [...] Neuro: within normal LABS: Office Visit on 04/17/2019 Component Date Value Ref Range Status VENTRICULAR RATE EKG 04/17/2019 47 BPM Final ATRIAL RATE 04/17/2019 47 BPM Final P-R INTERVAL 04/17/2019 174 ms Final QRS DURATION 04/17/2019 102 ms Final Q-T INTERVAL 04/17/2019 452 ms Final Q-T INTERVAL (CORRECTED) 04/17/2019 400 ms Final P WAVE AXIS 04/17/2019 54 degrees Final QRS AXIS 04/17/2019 -52 degrees Final T AXIS 04/17/2019 171 degrees Final INTERPRETATION TEXT 04/17/2019 Final Value:Sinus bradycardia with occasional premature ventricular complexes Left axis deviation Inferior infarct (cited on or before 25-DEC-2016) Abnormal ECG When compared with ECG of 05-JUL-2018 09:02, premature ventricular complexes are now present Nonspecific T wave abnormality, worse in Lateral leads Confirmed by RYLAN DE SANTIAGO, AMINA ([id number]) on 04/18/2019 7:35:03 AM IMAGING: No results found. Resting ECG 04/17/19: Sinus bradycardia 47 bpm, ice liter premature ventricular complex, le ft atrial abnormality, left axis deviation, old inferior infarction, when compared with prio r ECG dated 07/05/18, there are nonspecific T wave changes DIAGNOSES AND ASSESSMENTS: 1. Coronary atherosclerosis, status post PTCA May 2018, status post LIU PCI December 2016: Patient continues on dual antiplatelet therapy 2. Congestive heart failure: The patient is currently well compensated from a cardiac viewp oint and continues on low-dose furosemide 3. Dyslipidemia: LDL is at target PLAN OR RECOMMENDATIONS: Clinic follow-up 6 months BMP prior to next visit I appreciate the opportunity of participating in the care of this patient. Franck Tsai MD,[facility], 04/30/2019 8:18 documented in this enc ounter Plan of Treatment Not on filedocumented as of this encounter Procedures + +--------+ + + + | Procedure Name | Priori | Date/Time | Associated Diagnosis | Comments | | | ty | | | | + +--------+ + + + | ECG 12 LEAD | Routin | 04/17/2019 | Atherosclerosis of | Results for this | | | e | 9:25 AM | makah coronary | procedure are in the | | | | PDT | artery of makah | results section. | | | | | heart without angina | | | | | | pectoris | | + +--------+ + + + documented in this encounter Results ECG 12 lead (04/17/2019 9:25 AM PDT) + + + + + + | Component | Value | Ref Range | Performed | Pathologist | | | | | At | Signature | + + + + + + | VENTRICULAR | 47 | BPM | [facility] | | | RATE EKG | | | | | + + + + + + | ATRIAL RATE | 47 | BPM | [facility] | | + + + + + + | P-R | 174 | ms | [facility] | | | INTERVAL | | | | | + + + + + + | QRS | 102 | ms | [facility] | | | DURATION | | | | | + + + + + + | Q-T | 452 | ms | [facility] | | | INTERVAL | | | | | + + + + + + | Q-T | 400 | ms | [facility] | | | INTERVAL | | | | | | (CORRECTED) | | | | | + + + + + + | P WAVE AXIS | 54 | degrees | [facility] | | + + + + + + | QRS AXIS | -52 | degrees | [facility] | | + + + + + + | T AXIS | 171 | degrees | [facility] | | + + + + + + | INTERPRETAT | Sinus bradycardia with | | [facility] | | | ION TEXT | occasional premature | | | | | | ventricular | | | | | | complexesLeft axis | | | | | | deviationInferior | | | | | | infarct (cited on or | | | | | | before | | | | | | 25-DEC-2016)Abnormal | | | | | | ECGWhen compared with | | | | | | ECG of 05-JUL-2018 | | | | | | 09:02,premature | | | | | | ventricular complexes | | | | | | are now | | | | | | presentNonspecific T | | | | | | wave abnormality, worse | | | | | | in Lateral | | | | | | leadsConfirmed by | | | | | | WONGSUAMINA JACK MD | | | | | | ([id number]) on 04/18/2019 | | | | | | 7:35:03 AM | | | | + + [...] Diagnosis | + + | Atherosclerosis of makah coronary artery of makah heart without angina pectoris - | | Primary | + + documented in this encounter
[~2020-07-10 12:49] MED LIST changes: +NITROGLYCERIN0.4 MG SL
== END 2020-07-10 15:58 | disposition home or self-care (01) ==
LOC: ED 12:49
DX: S01.01XA Laceration without foreign body of scalp, initial encounter (principal); S41.112A Laceration without foreign body of left upper arm, initial encounter; W18.30XA Fall on same level, unspecified, initial encounter; I10 Essential (primary) hypertension; E11.9 Type 2 diabetes mellitus without complications; I25.2 Old myocardial infarction; Z88.0 Allergy status to penicillin; Z88.8 Allergy status to other drugs, medicaments and biological substances; Z79.82 Long term (current) use of aspirin; Z79.899 Other long term (current) drug therapy; Z79.84 Long term (current) use of oral hypoglycemic drugs; Z85.51 Personal history of malignant neoplasm of bladder
CPT/HCPCS: 12002; 99282-25

== ENCOUNTER 2020-07-18 07:24 | Emergency (ER) | payer MEDICARE, OTHER ==
[~2020-07-18] VITALS: Ht 170.2 cm; Wt 71.2 kg
--- OUTSIDE RECORDS SUMMARY | 2020-07-18 07:26 | XMS ---
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 Elvia VISIT COUNT (12 MO.) 2 [facility] TOTAL 2 NOTE: Visits indicate total known visits. ED/UCC VISIT TRACKING (12 MO.) 07/18/2020 07:24 [facility] TYPE: Emergency COMPLAINT: - STAPLE REMOVAL 07/10/2020 12:49 [facility] TYPE: Emergency COMPLAINT: - FALL DIAGNOSES: - loadmaster (current) use of aspirin - Allergy status to other drugs, medicaments and biological sub - Other halfway (current) drug therapy - Old myocardial infarction - Type 2 diabetes mellitus without complications - loadmaster (current) use of oral hypoglycemic drugs - Allergy status to penicillin - Personal history of malignant neoplasm of bladder - Essential (primary) hypertension - Laceration without foreign body of left upper arm, initial en - Laceration without foreign body of scalp, initial encounter - Fall on same level, unspecified, initial encounter INPATIENT VISIT TRACKING (12 MO.) No inpatient visits to display in this time frame [email or web address]
== END 2020-07-18 08:15 | disposition home or self-care (01) ==
LOC: ED 07:24
DX: S01.01XD Laceration without foreign body of scalp, subsequent encounter (principal)

== ENCOUNTER 2021-04-23 16:01 | Observation (INO) | payer MEDICARE, OTHER ==
[~2021-04-23] VITALS: Ht 170.2 cm; Wt 68.9 kg
[~2021-04-23 16:01] MED LIST changes: +FOLIC ACID0.4 MG PO; -FOLIC ACID1 MG PO; +VITAMIN D350 MC3 PO; -VITAMIN D5000 UNIT PO
[2021-04-23] MEDS ORDERED: CETIRIZINE HCL10 MG PO (16:31)
[2021-04-23] MEDS ORDERED: VITAMIN C1000 MG PO (16:32)
[2021-04-23] MEDS ORDERED: CLOPIDOGREL75 MG PO (16:32)
[2021-04-23] MEDS ORDERED: FUROSEMIDE20 MG PO (16:33)
[2021-04-23] MEDS ORDERED: K-TAB ER20 MEQ PO (16:33)
--- NOTE | 2021-04-23 17:54 | EKG ---
[facility] [address] [place], [place] [address] Signed Atrial fibrillation with rapid ventricular response Left axis deviation Inferior infarct , age undetermined Anterolateral infarct , age undetermined Abnormal ECG No previous ECGs available Confirmed by KIM SMITH MD ([id number]) on 04/23/2021 5:54:22 PM Electronically Signed By: KIM SMITH MD 04/23/21 1754 PATIENT NAME: HERRINGMARGARITO Electrocardiogram DATE OF : 44 PHYSICIAN: KIM SMITH MD REPORT #: [id number] REPORT IS CONFIDENTIAL AND NOT TO BE RELEASED WITHOUT AUTHORIZATION
--- NOTE | 2021-04-23 20:00 | NUR ---
PATIENT ARRIVED VIA STRETCHER. ABLE TO TRANSFER WITH 1PA TO BED. PATIENT IS AAOX4. DOES REPORT SHORT TERM MEMORY LOSS X2 YEARS AT LEAST AND STRUGGLES TO FIND HIS WORDS OCCATIONALLY. PATIENT IS TOLERATING ROOM AIR, LUNG SOUNDS ARE CLEAR. DENIES PAIN. ABD SOFT AND NONTENDER. REPORTS LOSS OF APPETITE AND POSSIBLE WEIGHT LOSS. SKIN IS GROSSLY INTACT. NO EDEMA NOTED. IV SITE FLUSHED EASILY IN RIGHT WRIST, SL. PATIENT VS STABLE. HR 90'S WITH ACTIVITY AND 80-90'S AFIB WHILE AT REST. PATIENT VOIDED 125 MLS CLEAR URINE. PROVIDED A SNACK AND WATER WHICH HE TOLERATED WELL.
--- NOTE | 2021-04-23 21:01 | NUR ---
PATIENT ATTEMPTING TO EXIT BED WITHOUT CALLED. ASSISTED PATIENT TO BSC. PATIENT AGREES TO FOLLOW SAFETY RULES BUT THEN SELF TRANSFERED WITHOUT ASSISTANCE TO THE BED AFTER REQUESTING PRIVACY TO HAVE A BM. ASSISTED PATIENT INTO COMFORTABLE POSITION. PROVIDED MEDS PER ORDER. BED ALARM ACTIVE. LIGHTS AND TV OFF PER REQUEST. CALL LIGHT IN HAND. HR 120'S WITH ACTIVITY
--- NOTE | 2021-04-23 22:09 | NUR ---
MAGNESIUM INFUSION COMPLETED, IV SALINE LOCKED. URINAL EMPTIED OF 100ML DILUTE YELLOW URINE. PT DENIES NEEDS, CALL LIGHT WITHIN REACH AND BED ALARM ON FOR SAFETY.
--- NOTE | 2021-04-23 23:30 | NUR ---
patient provided with warm blanket. reports difficulty sleeping but is unsure of anything to help him. assistef to side lying position. call light in reach.
--- NOTE | 2021-04-24 02:15 | NUR ---
patient resting in bed. awake when rn entered the room. urnal emptied. patient reports sleeping off and on. denied any needs. HR steady in the 80's at rest.
--- NOTE | 2021-04-24 05:00 | NUR ---
urnal emptied. patient resting in bed. reports not sleeping well, states "my eyes just pop open while I'm trying to sleep". Offered patient to reposition or an eye mask. patient declined. HR 80's. vs stable.
--- NOTE | 2021-04-24 07:44 | NUR ---
THIS RN IN TO CHECK ON PT. PT LAYING IN BED AND WAS ALERT AND ORIENTED X 4. PT STATED HE NEEDED TO A NEW GOWN HE WAS INCONTINENT OF URINE. PT ASSISTED IN CHANGING GOWN AND CLEANING SELF. NEW PAD AND ATTENDS IN PLACE AT THIS TIME. PT NOTED TO BECOME SHORT OF BREATH AND HAVE AN INCREASE IN HR TO THE 130'S WHILE STANDING. PT DENIES FEELING SOB WHEN ASKED. PT NOW LAYING IN BED AWAKE AND REPORTS NO FURTHER NEEDS, WILL CONTINUE PLAN OF CARE. CALL LIGHT IN REACH, BED IN LOWEST POSITION.
--- NOTE | 2021-04-24 08:22 | NUR ---
THIS RN IN TO ADMINISTER MEDICATIONS, PT LAYING IN BED AWAKE AND ALERT AT THIS TIME EATING BREAKFAST. SCHEDULED MEDICATIONS ADMINISTERED AT THIS TIME (SEE MAR). PT REPORTS NO NEEDS WHEN ASKED AT THIS TIME AND IS NOW EATING BREAKFAST AND SPEAKING TO ON PHONE. WILL CONTINUE PLAN OF CARE, CALL LIGHT IN REACH, BED IN LOWEST POSITION.
--- NOTE | 2021-04-24 08:50 | NUR ---
DR. MORALES CALLED TO INFORM OF PT'S POSITIVE URINE CULTURES. DR. SMITH NOW ON PHONE WITH DR. MORALES.
--- NOTE | 2021-04-24 09:07 | NUR ---
THIS RN IN TO ASSESS PT AT THIS TIME. VITALS TAKEN AT THIS TIME. PT ASSESSED AT THIS TIME AND IS ALERT AND ORIENTED THOUGH FORGETFUL AT TIMES. LUNGS CLEAR, HR IRREGULAR IN RYTHM, PULSES STRONG. PT DENIES HAVING ANY PAIN AT THIS TIME. PT FINISHED EATING BREAKFAST AT THIS TIME AND IS NOW LAYING IN BED. PT REPORTS NO FURTHER NEEDS WHEN ASKED AT THIS TIME. WILL CONTINUE PLAN OF CARE, CALL LIGHT IN REACH, BED IN LOWEST POSITION.
--- NOTE | 2021-04-24 09:20 | NUR ---
DR. SMITH UPDATED ON PT. AND INFORMED THAT PT'S SCHEDULED METOPROLOL AND LISINOPRIL WILL BE HELD AT THIS TIME DUE TO SYSTOLIC BP'S IN THE 90'S (SEE CHART). WILL CONTINUE PLAN OF CARE.
--- NOTE | 2021-04-24 10:05 | NUR ---
THIS RN IN TO CHECK ON PT. PT INITIALLY SLEEPING IN BED BUT AWOKE EASILY. PT DENIES ANY PAIN, SOB, LIGHTHEADEDNESS, OR DIZZYNESS AT THIS TIME. PT REPORTS NO FURTHER NEEDS AT THIS TIME, WILL CONTINUE PLAN OF CARE. DR. SMITH IN ROOM AT THIS TIME ASSESSING PT AND UPDATING PT ON PLAN OF CARE.
[2021-04-24] MEDS ORDERED: POTASSIUM CHLO10 ME1 PO (10:28)
--- NOTE | 2021-04-24 10:49 | NUR ---
THIS RN IN TO ADMINISTER SCHEDULED MEDICATIONS (SEE MAR). PT LAYING IN BED AWAKE AND ALERT AT THIS TIME. MEDICATIONS ADMINISTERED, PT THEN STATED HE NEEDED TO HAVE A BM. PT UP TO BEDSIDE COMMODE TO HAVE A BM. HR NOTED TO GO UP TO THE 120'S PT DENIES DIZZYNESS OR LIGHTHEADEDNESS WHEN ASKED. PT ABLE TO GET BACK INTO BED AFTERWARDS. SCHEDULED METOPROLOL ADMINISTERED AT THIS TIME PER M.D. NOW AT BEDSIDE WITH PT. PT REPORTS NO FURTHER NEEDS AT THIS TIME, WILL CONTINUE PLAN OF CARE. CALL LIGHT IN REACH, BED IN LOWEST POSITION.
--- NOTE | 2021-04-24 11:46 | NUR ---
MED REC COMPLETE
--- NOTE | 2021-04-24 11:48 | NUR ---
THIS RN IN TO CHECK ON PT AND BRING PT HIS LUNCH. PT LAYING IN BED AWAKE AND ALERT WITH HIS AT THE BEDSIDE RECLINER. PT REPORTS NO NEEDS AT THIS TIME WHEN ASKED AND IS NOW EATING LUNCH, WILL CONTINUE PLAN OF CARE. CALL LIGHT IN REACH.
--- NOTE | 2021-04-24 12:15 | NUR ---
RESPONDED TO PT CALL LIGHT PT STATED HE NEEDED TO HAVE A BM. PT STILL WEAK AND HESTITATED FROM A SITTING POSITION TO STANDING BUT WAS ABLE TO DO SO UNASSISTED AND PIVOT TO THE BEDSIDE COMMODE. PT HR ELEVATED TO 110-120'S AT THIS TIME AND PT BECAME SHORT OF BREATH. PT DENIED FEELING SOB AT THIS TIME AND DENIED HAVING ANY FEELINGS OF LIGHTHEADEDNESS OR DIZZYNESS. PT ABLE TO VOID AND HAVE A BM AND GET BACK INTO BED WITH MINIMAL ASSISTANCE. PT STILL FORGETFULL HE HAD HAD TO BE REMINDED TO PULL UP HIS ATTENDS BACK IN PLACE BEFORE GOING TO THE BED. PT NOW SITTING UP IN BED EATING HIS LUNCH WITH HIS AT THE BEDSIDE. PT REPORTS NO FURTHER NEEDS WHEN ASKED, WILL CONTINUE PLAN OF CARE. CALL LIGHT IN REACH, BED IN LOWEST POSITION.
--- NOTE | 2021-04-24 12:38 | NUR ---
THIS RN IN TO ASSESS PT. PT LAYING IN BED WITH AT BEDSIDE WATCHING TV AWAKE AND ALERT. PT ASSESSED AT THIS TIME. PT REPORTS NO NEEDS AT THIS TIME WHEN ASKED, WILL CONTINUE PLAN OF CARE. CALL LIGHT IN REACH.
--- NOTE | 2021-04-24 14:06 | NUR ---
THIS RN IN TO CHECK ON PT. PT LAYING IN BED AWAKE AND ALERT WITH AT BEDSIDE. PT REPORTS NO FURTHER NEEDS AT THIS TIME WHEN ASKED. CALL LIGHT IN REACH, WILL CONTINUE PLAN OF CARE.
--- NOTE | 2021-04-24 15:13 | NUR ---
RESPONDED TO PT CALL LIGHT. PT STATED HE NEEDED TO HAVE A BM. PT ABLE TO GET UP AND PIVOT TO BEDSIDE COMMODE TO HAVE BM AND GET BACK INTO BED AFTER FINISHING. LABORED BREATHING AND INCREASE IN HEART RATE STILL NOTED WITH EXERTION. PT STILL DENIES LIGHTHEADEDNESS, DIZZYNESS, OR FEELING SHORT OF BREATH. PT VITALS TAKEN AT THIS TIME. BP NOTED TO BE IN THE 120'S, CUFF READJUSTED AND PRESSURE RETAKEN READING 129/106 (115). PT DENIES ANY PAIN AT THIS TIME AND IS ALERT AND ORIENTED THOUGH STILL FORGETFULL. PT NOW LAYING IN BED WATCHING TV WITH AT BEDSIDE. PT REPORTS NO FURTHER NEEDS WHEN ASKED, WILL CONTINUE PLAN OF CARE. CALL LIGHT ON BED WITHIN REACH.
--- NOTE | 2021-04-24 16:06 | NUR ---
THIS RN IN TO CHECK ON PT AND ASSESS PT. PT LAYING IN BED WATCHING TV AT THIS TIME WITH AT BEDSIDE. PT ASSESSED AT THIS TIME. PT DENIES HAVING ANY PAIN OR SOB AT THIS TIME. LUNGS ARE CLEAR, PULSES STRONG, HEART RYTHM STILL IRREGULAR. PT GIVEN WATER AT THIS TIME BUT REPORTS NO FURTHER NEEDS WHEN ASKED. WILL CONTINUE PLAN OF CARE, CALL LIGHT IN REACH, BED IN LOWEST POSITION.
--- NOTE | 2021-04-24 17:20 | NUR ---
THIS RN IN TO CHECK ON PT AND RETAKE BLOOD PRESSURE PT WAS LAYING ON HIS SIDE. PT AWAKE AND ALERT WATCHING TV WITH HIS AT THE BEDSIDE. PT REPORTS NO FURTHER NEEDS WHEN ASKED AT THIS TIME. DINNER BROUGHT TO PT AND SCHEDULED MEDICATIONS ADMINISTERED. PT NOW LAYING IN BED EATING DINNER, AT BEDSIDE. WILL CONTINUE PLAN OF CARE. CALL LIGHT ON BED WITHIN REACH.
--- NOTE | 2021-04-24 17:49 | NUR ---
THIS RN IN TO CHECK ON PT. PT LAYING IN BED AWAKE AND ALERT WATCHING TV. PT FINISHED EATING MAJORITY OF DINNER AND STATES HE IS DONE WITH IT. PT REPORTS NO FURTHER NEEDS AT THIS TIME WHEN ASKED, WILL CONTINUE PLAN OF CARE. CALL LIGHT IN REACH, BED IN LOWEST POSITION.
--- NOTE | 2021-04-24 18:21 | NUR ---
THIS RN IN TO CHECK ON PT. PT LAYING IN BED AT THIS TIME WATCHING TV AWAKE AND ALERT. PT ASSISTED IN REPOSITIONING IN BED. PT NOW LAYING IN BED WATCHING TV. PT DENIES HAVING ANY PAIN OR FEELING SHORT OF BREATH AT THIS TIME. PT REPORTS NO FURTHER NEEDS WHEN ASKED, WILL CONTINUE PLAN OF CARE. CALL LIGHT IN REACH, BED IN LOWEST POSITION.
--- NOTE | 2021-04-24 19:41 | NUR ---
PT SITTING AT EDGE OF BED, HAD JUST USED URINAL. HR UP TO 120'S, DENIES FEELING WEAK OR SOB. HR BACK TO 100 AT REST. IS AWARE THAT HE HAS A UTI. CALL LIGHT NEAR PT.
--- NOTE | 2021-04-24 22:00 | NUR ---
PT SLEEPING. OCC MOANS/TALKS IN SLEEP. HR 90-100.
--- NOTE | 2021-04-25 00:10 | NUR ---
ASLEEP. HR WILL IN TO ONE TEENS WHEN TURNS OVER.
--- NOTE | 2021-04-25 00:38 | NUR ---
FOUND PT STANDING AT BEDSIDE, NEEDS TO VOID AND POSS BM. AMB TO BATHROOM, HR BRIEFLY UP TO 130'S. BACK TO BED. RESP RATE IN TO 30'S AND PT DOES FEEL MILDLY SOB. RESOLVED WITH LAYING DOWN. READY TO GO BACK TO SLEEP.
--- NOTE | 2021-04-25 01:50 | NUR ---
PT AWAKE, STATES NOT SLEEPING. GIVEN 650MG TYLENOL TO HELP WITH SLEEP.
--- NOTE | 2021-04-25 04:18 | NUR ---
PT SLEEPING AT THIS TIME. HR 80-90'S.
--- NOTE | 2021-04-25 05:51 | NUR ---
PT AWAKE, WAS DIAPHORETIC, LINEN AND GOWN CHANGED. PT SITTING AT BEDSIDE, AND THEN STOOD BREIFLY. HR UP TO 140 FOR SHORT INTERVALS THEN BACK TO LOW 100'S. SITTING AT EDGE OF BED AN HR 95-120. DENIES APPETITIE.
--- NOTE | 2021-04-25 06:53 | NUR ---
PT AMB TO BATHROOM TO VOID AND HAVE BM. HR 130-150 WHILE UP. BACK TO 90-115 WHEN BACK IN BED. DENIES PAIN, DIZZYNESS ETC, MILDLY SOB. BP 113/80 WHEN BACK IN BED.
--- NOTE | 2021-04-25 07:29 | NUR ---
REPORT RECEIVED FROM NIGHTSHIFT RN, WILL CONTINUE PLAN OF CARE.
--- NOTE | 2021-04-25 07:38 | NUR ---
THIS RN IN TO CHECK ON PT, PT SLEEPING INITIALLY BUT AWOKE EASILY. PT WAS THEN ALERT AND ORIENTED. PT DENIED HAVING ANY PAIN, OR LIGHTHEADEDNESS AT THIS TIME. BREAKFAST ORDERED FOR PT AT THIS TIME. PT DENIED ANY FURTHER NEEDS WHEN ASKED, WILL CONTINUE PLAN OF CARE. CALL LIGHT IN REACH, BED IN LOWEST POSITION.
--- NOTE | 2021-04-25 08:26 | NUR ---
THIS RN IN TO ASSESS PT AND ADMINISTER SCHEDULED MEDICATIONS. PT LAYING IN BED AWAKE AND ALERT AT THIS TIME. PT ASSESSED AT THIS TIME, IV FLUSHED, MEDICATIONS ADMINISTERED. PT DENIES HAVING ANY PAIN AT THIS TIME. PT SAT UP IN BED TO EAT BREAKFAST AND HR NOTED TO INCREASE TO 130 BPM MOMENTARILY, PT DENIES ANY LIGHTHEADEDNESS OR DIZZYNESS WHEN ASKED. PT REPORTS NO NEEDS WHEN ASKED AT THIS TIME AND IS EATING BREAKFAST AT THIS TIME. CALL LIGHT AT SIDE WITHIN REACH, WILL CONTINUE PLAN OF CARE.
--- NOTE | 2021-04-25 08:48 | NUR ---
DR. SMITH IN TO ASSESS PT AND UPDATE ON PLAN OF CARE AND PLANS TO DISCHARGE PT. WILL CONTINUE PLAN OF CARE.
[2021-04-25] MEDS ORDERED: SULFAMETHOXAZO1 EAC1 PO (09:01)
[2021-04-25] MEDS ORDERED: LISINOPRIL2.5 MG PO (09:02)
--- NOTE | 2021-04-25 09:56 | NUR ---
THIS RN IN TO ASSIST PT IN GETTING DRESSED. PT SITTING AT SIDE OF BED AWAKE AND ALERT AT BEDSIDE. UPDATED ON PLAN OF CARE AFTER DISCHARGE. STATES PT ALREADY HAS AN APPOINTMENT WITH THE CONCRETE POINTER ON THE April AND WILL SET UP AN APPOINTMENT TO SEE THE PT'S PRIMARY CARE PROVIDER. PT ABLE TO DRESS SELF WITH SOME MINOR ASSISTANCE. PT THEN WALKED TO BATHROOM TO VOID AND WALKED BACK. PT NOW SITTING AT BEDSIDE WITH AT SIDE, WILL CONTINUE PLAN OF CARE.
--- NOTE | 2021-04-25 11:07 | NUR ---
THIS RN IN TO DISCUSS DISCHARGE INSTRUCTIONS WITH PT AND HIS . QUESTIONS ON MEDICATION CHANGES, PRESCRIPTION, AND FOLLOW UP APPOINTMENT ANSWERED AT THIS TIME. VITALS TAKEN, IV HAS BEEN DC'D AND SITE IS STILL WNL. PT AWAKE AND ALERT AND WAS TAKEN DOWN TO THE FRONT LOBBY WITH BELONGINGS VIA WHEELCHAIR BY [facility] WHERE HIS IS WATING TO PICK HIM UP.
== END 2021-04-25 11:05 | disposition home or self-care (01) ==
LOC: ED 16:01 → CCU 16:03
PROVIDERS: ADMIT Internal Medicine; ATTEND Internal Medicine
DX: I48.91 Unspecified atrial fibrillation (principal); I25.10 Atherosclerotic heart disease of native coronary artery without angina pectoris; E83.42 Hypomagnesemia; E78.5 Hyperlipidemia, unspecified; N39.0 Urinary tract infection, site not specified; B95.4 Other streptococcus as the cause of diseases classified elsewhere; I42.9 Cardiomyopathy, unspecified; E11.9 Type 2 diabetes mellitus without complications; Z20.822 Contact with and (suspected) exposure to COVID-19; I25.2 Old myocardial infarction; J32.9 Chronic sinusitis, unspecified; I95.9 Hypotension, unspecified; Z79.84 Long term (current) use of oral hypoglycemic drugs; Z95.5 Presence of coronary angioplasty implant and graft; Z88.0 Allergy status to penicillin; Z88.8 Allergy status to other drugs, medicaments and biological substances; Z91.018 Allergy to other foods; Z87.891 Personal history of nicotine dependence
CPT/HCPCS: 70450; 71045; 80048; 80053; 81001; 82553; 83735; 84100; 84484; 85025; 93005; 93010; 96365; 96366; 96375; 99285-25; C9803; G0378; J3475; J7030; U0003

== ENCOUNTER 2021-12-08 13:41 | Inpatient (IN) | payer MEDICARE, OTHER ==
[~2021-12-08] VITALS: Ht 170.2 cm; Wt 65.5 kg
[~2021-12-08 13:41] MED LIST changes: +CETIRIZINE HCL10 MG PO; +CLOPIDOGREL75 MG PO; +FUROSEMIDE20 MG PO; +K-TAB ER20 MEQ PO; +LISINOPRIL2.5 MG PO; +POTASSIUM CHLO10 ME1 PO; +SULFAMETHOXAZO1 EAC1 PO; +VITAMIN C1000 MG PO
--- OUTSIDE RECORDS SUMMARY | 2021-12-08 13:48 | XMS ---
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 09/14/2018-Current PHONE: Unknown Lavell has no Care Guidelines for this patient. Elvia VISIT COUNT (12 MO.) 1 [facility] [address] TOTAL 3 NOTE: Visits indicate total known visits. ED/UCC VISIT TRACKING (12 MO.) 12/08/2021 13:41 [facility] TYPE: Emergency COMPLAINT: - WE[facility] DIAGNOSES: - Altered Mental Status - Encephalopathy, unspecified - Facial Droop - Weakness - Weakness - Acute on chronic systolic (congestive) heart failure - Fatigue - weakness/fatigue, cough 04/23/2021 16:02 [facility] TYPE: Emergency COMPLAINT: - WEAKNESS INPATIENT VISIT TRACKING (12 MO.) [facility] DIAGNOSES: - Pneumonia due to coronavirus disease 2018 - Atherosclerotic heart disease of crow coronary artery without angina pectoris - Unspecified atrial fibrillation - Acute respiratory failure with hypoxia - Hyperlipidemia, unspecified - Essential (primary) hypertension - Metabolic encephalopathy - Encephalopathy, unspecified - Other malaise - Gastro-esophageal reflux disease without esophagitis - COVID-19 - Weakness - Unspecified dementia without behavioral disturbance - Acute on chronic systolic (congestive) heart failure - Ischemic cardiomyopathy 04/23/2021 16:03 [facility] TYPE: Observation COMPLAINT: - FIB RVR DIAGNOSES: - Old myocardial infarction - Chronic sinusitis, unspecified - Type 2 diabetes mellitus without complications - Urinary tract infection, site not specified - Presence of coronary angioplasty implant and graft - Atherosclerotic heart disease of crow coronary artery without angina pectoris - Hypotension, unspecified - Personal history of nicotine dependence - Allergy to other foods - Allergy status to other drugs, medicaments and biological substances - Cardiomyopathy, unspecified - retirement (current) use of oral hypoglycemic drugs - Hypomagnesemia - Other streptococcus as the cause of diseases classified elsewhere - Hyperlipidemia, unspecified - Unspecified atrial fibrillation - Allergy status to penicillin 03/26/2021 06:31 [facility] TYPE: Intensive Care DIAGNOSES: - Atherosclerotic heart disease of crow coronary artery without angina pectoris - Chronic ischemic heart disease, unspecified - Presence of coronary angioplasty implant and graft - Non-ST elevation (NSTEMI) myocardial infarction [email or web address]
[2021-12-08] MEDS ORDERED: MAGNESIUM OXID400 M1 PO (14:24)
[2021-12-08] MEDS ORDERED: PREDNISONE10 MG PO (14:25)
[2021-12-08] MEDS ORDERED: XARELTO2.5 MG PO (14:25)
[2021-12-08] MEDS ORDERED: CEFDINIR300 MG PO (15:50)
--- NOTE | 2021-12-08 20:42 | NUR ---
PT WAS SWABBED FOR COVID 19
--- NOTE | 2021-12-08 21:56 | NUR ---
2007 PATIENT ARRIVED TO THE UNIT VIA STRETCHER. PATIENT'S EYES ARE OPEN BUT HE DOES NOT PROVIDE ANY ANSWERS TO ORIENTATION QUESTIONS. PATIENT GOES BETWEEN BEING DROWSY AND AGITATED WITH TEARS IN HIS EYES AND MOANING. PATIENT CALMS WITH TALK/TOUCH FROM STAFF. PATIENT TOLERATING 4L OXYMASK BUT BEGINS TO HAVE RR IN 30'S AND GRUNTING/SNORING WHILE SLEEPING. PATIENT PLACED ON CPAP 10, 30% Fi02. PATIENT'S RR DOWN TO 20 AFTER HE SETTLES. O2 SATS >90%. LUNG SOUNDS ARE CLEAR THORUGHOUT. HR 90'S AT REST, 120'S WITH AGITATIONS; A.FIB. PATIENT'S BP SPFT WITH SYSTOLICS IN THE 90'S. HELD PO LOPRESSOR DUE TO THIS AND PATIENT'S MENTAL STATUS BEING UNSAFE FOR PO INTAKE. SANTOS DRAINING FREELY, YELLOW URINE WITH STREAKS OF BLOOD NOTED. NO EDEMA NOTED, HEELS FLOATED ON PILLOW. SKIN INTACT. REDNESS ON COCCYX NOTED, PATIENT TURNED SLIGHTLY TO RIGHT SIDE WITH PILLOW UNDER HIP. IV SITE WNL X2. PATIENT O2 SATS UP TO 99% ON 30% FiO2. TITRATED TO 21%. PATIENT APPEARS MORE RESTFUL.
--- NOTE | 2021-12-08 23:06 | NUR ---
PATIENT CONTINUES TO BE LETHARGIC, RESTING EYES CLOSED. RR 16-18 ON CPAP 10, 21% Fi02. SpO2 90-93%. SOFT BP, MAP >65. HR 80-90'S, AFIB. GOOD URINE OUTPUT. PATIENT DID NOT WAKE OR STIR WHEN SUB-Q INJECTION GIVEN IN LLQ.
--- NOTE | 2021-12-09 00:25 | NUR ---
PATIENT WOKE AND BAGAN TO PULL AT LINES. RN IN ROOM. CPAP REMOVED. PATIENT TOLERATES ROOM AIR. PATIENT ORIENTED TO SELF AND SURROUNDINGS, STATING HE WAS IN THE HOSPITAL BUT UNABLE TO PROVIDE THE NAME. PATIENT ANSWERS YES/NO ANSWERS ONLY, APPEARS CONFUSED BUT MORE ALERT. AFTER ABOUT 30 MINS THE PATIENT BEGAN TO EXIT THE BED AND BECAME INCREASING AGITATED WHEN STAFF ATTEMPTED TO REDIRECT HIM. PATIENT GRABBING STAFF AND ATTEMPTING TO KICK THEM. THIS RN AND EVENS RN AT BEDSIDE. ATTEMPTS TO REDIRECT FAILED. PATIENT'S HR IN 140-150'S DURING THIS TIME AND HE APPEARS SOB. PRN MORPHINE AND LOPRESSOR IV PROVIDED. PATIENT 1:1 WITH FLOAT RN FOR SOME TIME. DISCUSSED WITH . 1 TIME DOSE ATIVAN ORDERED AND CAN BE REPEATED IN AN HOUR IF NEEDED. PATIENT BEGAN TO CALM AFTER ADMINISTERED. LIGHTS DIMMED AND PATIENT RESTING IN BED WITH EYES OPEN BUT NO LONGER ATTEMPTING TO EXIT. CONTINUED DIRECT OBSERVATION FROM NURSES STATION. HR IMPROVED TO 90-110. O2 SATS >90% ON ROOM AIR. RR 20-25.
--- NOTE | 2021-12-09 08:00 | NUR ---
DURING REPORT HR STARTED TO ELEVATE UP TO THE 150'S. PRN LOPRESSOR IV WAS GIVEN FIRST. PT IS ONLY ORIENTED TO SELF, PLACE, AND REASON WHY HE IS HOSPITALIZED.PT ON RA, LOBES ARE CLEAR AND DIMINISHED IN THE BASES. STRENGTH +4 OVERALL. PT IS PULLING ON HIS SANTOS CATH AND HIS URINE IS BLOODY. URINE OUTPUT IS STILL WDL. PO INTAKE IS POOR. WILL CONTINUE TO MONITOR.
--- NOTE | 2021-12-09 09:00 | NUR ---
PATIENTS DAUGHTER CALLED FOR UPDATE, RN NOTIFIED.
--- NOTE | 2021-12-09 09:45 | NUR ---
PT KEEPS TRYING TO CLIMB OUT OF BED. BED ALARM ON, PT NEEDS TO BE A 1:1. HR IS HARD TO CONTROL IT SEEMS. HR ALREADY AGAIN >100 AT THIS TIME.
--- NOTE | 2021-12-09 09:47 | NUR ---
Faxed H&P to [facility].
--- NOTE | 2021-12-09 10:00 | NUR ---
ONE TIME DOSE OF LOPRESSOR IV 2.5MG GIVEN FOR HR UP TO 150'S SUSTAINED. CALLED MD SMITH. WILL CONTINUE TO MONITOR.
--- NOTE | 2021-12-09 11:12 | NUR ---
PT RESTING IN BED AT THIS TIME.
--- NOTE | 2021-12-09 11:37 | NUR ---
PATIENT HAS ACCIDENTLY TUGGED ON HIS SANTOS CATH A COUPLE TIMES THIS MORNING, GETTING IT TWISTED UP IN HIS LEGS HE TURNS BACK AND FORTH IN BED. BLOOD IS NOTED IN SANTOS BAG, RN IS AWARE. ORAL CARE PROVIDED AT THIS TIME. CALL LIGHT IN REACH, BED ALARM ON FOR SAFETY
--- NOTE | 2021-12-09 13:45 | NUR ---
PT IS RESTLESS ONCE MORE, TRAVELERS' AID WORKER IN ROOM, HR UP TO 140'S. MAY HAVE TO GIVE MORE PRN LOPRESSOR IV.
--- NOTE | 2021-12-09 13:56 | NUR ---
VITALS CHARTED AND FOELY EMPTIED. BED BATH AND SANTOS CARE PROVIDED. LINEN CHANGED. PATIENT REPOSITIONED ONTO RIGHT SIDE, CALL LIGHT IN REACH. BED ALARM ON FOR SAFETY
--- NOTE | 2021-12-09 14:30 | NUR ---
ONCE PT SETTLED DOWN, HR WENT <100. NO PRN LOPRESSOR GIVEN. WILL CONTINUE TO MONITOR.
[2021-12-09] MEDS ORDERED: METOPROLOL SUCC50 MG PO (15:14)
--- NOTE | 2021-12-09 16:45 | NUR ---
PT HR IN THE 120'S TO 150'S SUSTAINED. PRN LOPRESSOR GIVEN. PT DENIES PAIN.
--- NOTE | 2021-12-09 17:10 | NUR ---
Pt sleeping, spoke with . cries throughout our conversation. States pt has had been declining and has had bladder ca for many years. He has not had treatment for his cancer in 2 years. He does not use any DME, but was no longer able to walk when he came to the hospital. There is a ramp at their home. There are children in the area, but all work. stating she can no longer provide care for pt. Discussed options of: SNF, pt would need to qualify, HH, Hospice, or Assisted living. states they have enough money to pay bills, but are frequently short. We discussed medicaid and she would not want a lien on their home. She does state she may need to sell his pickup. Let her know I will need to discuss with Dr. gtz. She is again stating she is exhausted and does not feel she can care for pt at home any longer. Discussed Dr. Espinal is starting his rotation and I will speak with him in the AM for a plan and will call her tomorrow.
--- NOTE | 2021-12-09 17:29 | NUR ---
RESPONSE TO PRN LOPRESSOR 2.5MG IV WAS NOT THAT GOOOD. HR REMAINS MOSTLY >110 TO 130. MD RODAS AWARE. MD RODAS PUT IN NEW ORDERS. UPPER LOBES CLEAR, LOWER LOBES HAVE FINE CRACKLES PRESENT. NO EDEMA NOTED. NO OTHER NEW CONCERNS NOTED WITH THIS ASSESSMENT. PER MD RODAS WE WILL D/C SANTOS ONCE THE EFFECT OF LASIX HAS WORN OFF.
--- NOTE | 2021-12-09 18:20 | NUR ---
ADDITIONAL MEDS GIVEN. PT ATE 100% OF HIS DINNER. WILL CONTINUE TO MONITOR.
--- NOTE | 2021-12-09 18:45 | NUR ---
DANIELLE Aguayo/Roney A [id number]. PT WAS PULLING ON IT AND MAKING HIMSELF BLEED.
--- NOTE | 2021-12-09 21:37 | NUR ---
PT RESTLESS IN BED, FREQUENT CHECKS REQUIRED, PT ATTEMPTING TO EXIT BED AND PULL AT LINES, WHEN PT WAS APPROACHED TO BE REPOSITIONED AND LINES SECURED, HE GRABBED RN AGGRESSIVELY, PT NOT ABLE TO BE REDIRECTED AT THIS TIME, PT IS SAFE IN BED AT LOWEST POSITION AND BED ALARM ON. RN WILL ATTEMPT TO SECURE LINES LATER ONCE PT IS LESS AGGITATED
--- NOTE | 2021-12-09 22:25 | NUR ---
PT EXITING BED, UNABLE TO REDIRECT OR DISTRACT, TWO PERSON SBA TO ALLOW PT TO AMBULATE IN ROOM, PT AGGITATED, UNWILLING TO COOROPERATE WITH STAFF, DR RODAS NOTIFIED, SERAQUEL ORDERED, PT BACK IN BED, BED IN LOWEST POSITION, BED ALARM TURNED ON
--- NOTE | 2021-12-09 23:47 | NUR ---
PT AGGITATED, CONTINUALLY CLIMBING OUT OF BED AND PULLING OFF MONITOR LEADS AND AT LINES, BECOMING VIOLENT WITH STAFF, PT IS UNABLE TO BE REDIRECTED, DISORIENTED TO ALL, PT UNWILLING TO LEAVE MONITOR LEADS ON, WILL REATTEMPT TO PLACE THEM ON PT ONCE HE IS LESS AGGITATED
--- NOTE | 2021-12-10 02:36 | NUR ---
PT ATTEMPTING TO EXIT BED, BED ALARM GOING OFF, RN WITH PT, 2 PERSON SBA TO BATHROOM, PT MORE DIRECTABLE AND COORPERATIVE IF ALLOWED TO WALK TO BATHROOM, ATTENDS WET, CHANGED, PT ASSISTED BACK TO BED, WARM BLANKET APPLIED, BED IN LOWEST POSITION WITH ALARM ON. PLATER HELPER SPOKE WITH DR RODAS, OKAY TO LEAVE MONITOR OFF
--- NOTE | 2021-12-10 05:36 | NUR ---
THROUGHOUT NIGHT, PT CONTINUALLY ATTEMPTED TO EXIT BED WITH SPURTS OF AGGRESSION TOWARDS STAFF. AGGRESSION DECREASED AFTER SERAQUEL WAS GIVEN PER DEC. FREQUENT REMINDERS TO CALL FOR HELP AND TO STAY IN BED REQUIRED, PT NOT EASILY REDIRECTABLE, STILL REFUSING TO KEEP CARDIAC LEADS ON. PREVIOUSLY WAS COMPLAINING OF PAIN IN THE BLADDER, PRN PAIN MEDICAITON GIVEN PER DEC. PT NOW RESTING COMFORTABLY IN BED, BED IN LOWEST POSITION WITH BED ALARM ON
--- NOTE | 2021-12-10 07:30 | NUR ---
PT IN BED RESTING.
--- NOTE | 2021-12-10 08:30 | NUR ---
PT IS UP IN CHAIR. PT IS APPEARING DRWOSY AND SEDATED. PT WON'T DRINK FLUIDS AND THEREFORE IS NOT TAKIN PO MEDS. V/S WDL, PUPILS WDL AND REACTIVE. UPPER LOBES CLEAR, LOWER LOBES HAVE OCCASIONAL CRACKLES PRESENT. PT HOWEVER DID NOT FOLLOW COMMAND TO TAKE DEEP BREATHS. MD RODAS IS AWARE OF THE SEDATION ISSUE. NO PERIPH. EDEMA RADIAL AND PEDIS PULSES +1, HR IRREGULAR. WILL CONTINUE TO MONITOR FOR NOW.
--- NOTE | 2021-12-10 08:49 | NUR ---
PATIENT UP TO CHAIR, 2PA. PATIENT TOLERATED WELL, LINEN AND BRIEF CHANGED. PATIENT INCONTINENT OF URINE, SMALL AMOUT OF BLOOD NOTED IN BRIEF. CHAIR ALARM ON FOR SAFETY. WARM BLANKET AND FRESH WATER PROVIDED. PATIENT NOT OPENING HIS EYES WHEN SPOKEN TO ONCE IN CHAIR, REFUSED BREAKFAST. VITALS CHARTED.
--- NOTE | 2021-12-10 09:15 | NUR ---
Spoke with Dr. Espinal. Pt will more than likely need a SNF. Will contact [facility] to see if they could accept this pt as diagnosis of covid was 11/29/21. Will fax chart.
--- NOTE | 2021-12-10 09:30 | NUR ---
PT STILL IN CHAIR SLEEPING. NO CHANGES NOTED.
--- NOTE | 2021-12-10 10:10 | NUR ---
2PA PATIENT BACK TO BED FROM CHAIR. PATIENT NOT HELPING MUCH AT ALL DURING TRANSFER, STANDING IN PLACE WITH EYES CLOSED. PATIENT INCONTINENT OF URINE AND SMALL AMOUNT OF STOOL. CALL LIGHT IN EASY REACH, BED ALARM ON FOR SAFETY.
--- NOTE | 2021-12-10 10:30 | NUR ---
PT IS BACK IN BED. PT DOES OPEN HIS EYES TO VOICE BUT STILL IS VERY DROWSY. HR IS INCREASING UP TO THE 140'S NOW. I AM UNABLE TO GIVE PO LOPRESSOR THAT WAS SCHEDULED AT 0800. MD RODAS AWARE.
--- NOTE | 2021-12-10 11:22 | NUR ---
PT STILL DRWOSY AND UNABLE TO TAKE PO. PT ALSO HAS TACHYPNEA. MD RODAS AWARE. RR 20' TO 40. O2 SATS >92% ON RA.
--- NOTE | 2021-12-10 12:00 | NUR ---
PT AT THIS TIME HAS A 101.5 AXILLARY TEMP. MD RODAS IS AWARE. TYLENOL SUPP, LABS AND BLOOD CULTURES TO BE DONE. LR AT 65MLS/HR ALSO. PT IS STILL LETHARGIC AND DROWSY IN APPEARANCE, NOT FOLLOWING COMMANDS. UPPER LOBES CLEAR, LOWER LOBES DIMINISHED. NO EDEMA NOTED. IV LOPRESSON GIVEN SINCE PT IS UNABLE TO TAKE PO AT THIS TIME. WILL CONTINUE TO MONITOR.
--- NOTE | 2021-12-10 13:15 | NUR ---
TEMP AT THIS TIME IS 99.4 F AXILLARY. PT NOW MUCH MORE ALERT AND ABLE TO TAKE PO. MORNING PO MEDS GIVEN PER MD RODAS. PT HAD ANOTHER INCONTINENT VOID AND A BM.
--- NOTE | 2021-12-10 14:47 | NUR ---
PATIENT MUCH MORE ALERT AT THIS TIME. STIRRING IN BED AND INCONT OF URINE. WTAER OFFERED AND PATIENT REACHED OUT FOR CUP, NEEDED SOME ASSISTANCE WITH STRAW. PATIENT REPOSITIONED ONTO RIGHT SIDE. BED ALARM ON FOR SAFETY
--- NOTE | 2021-12-10 15:00 | NUR ---
PT IN BED. RESTING AT TIMES, ROLLING BACK AND FORTH AT OTHER TIMES. RR STILL ELEVATED.
--- NOTE | 2021-12-10 15:37 | NUR ---
Unable to contact [facility] today. Attempted to call and no answer. Chart was faxed requesting placement earlier today.
--- NOTE | 2021-12-10 17:00 | NUR ---
PT IS DRINKING AND DOING WELL WITH IT. RR STILL 20'S TO 30'S, HR MOSTLY >110, AFIB. NO PERIPH. EDEMA, O2 SATS WDL, ALL LOBES ARE DIMINISHED AT THIS TIME. URINE OUTPUT IS GOOD. PT ONLY IS FOLLOWING SOME COMMANDS.
--- NOTE | 2021-12-10 18:00 | NUR ---
PT IN ROOM RESTNIG. RR STILL IN THE HIGH 20'S AND 30'S. MD RODAS IS AWARE THAT PT STILL HAS TACHYPNEA. OTHERWISE NO NEW CONCERNS NOTED.
--- NOTE | 2021-12-10 20:32 | NUR ---
upon assessment, pt was tachypneic with accessory muscle use, RT notified, temp was elevated at 100.3, rectal tylenol given per mar, pt non verbal, eyes open, pupils equal and reactive and sluggish, pt reactive to painful stimuli, heart rate ranging from 130s-170s, Dr Espinal notified, awaiting new orders
--- NOTE | 2021-12-10 20:50 | NUR ---
IV lopessor given per order, chest xray complete, pt placed on bipap by RT due to resperations ranging from 40-60/minute
--- NOTE | 2021-12-10 22:07 | NUR ---
DR RODAS AT BEDSIDE WITH RN AND PT, PT IN AFIB WITH RVR, ON CPAP. PER CLARK GIVE IV PUSH DILTAZEM AND IV PUSH LASIX, REFER TO MAR. PER CLARK PT WILL BE PLACED ON DILT DRIP TO CONTROL HEART RATE AND LEAVE PT ON CPAP FOR TONIGHT
--- NOTE | 2021-12-11 01:48 | NUR ---
PT YELLING OVER CPAP THAT HE CANT BREATHE, FIRST TIME TONIGHT PT HAS BEEN VERBAL, CPAP WAS REMOVED AND PT WAS PLACED ON 2 LPM O2 VIA N/C. PT IS ALTERED HOWEVER PLEASENT, SLOW TO RESPOND AND LETHARGIC. IV ON RIGHT WRIST WAS LEAKING, IV REMOVED AND NEW 20 G PLACED IN RIGHT FOREARM. PT REPOSITIONED AND GIVEN WATER, PT ABLE TO SWALLOW WELL AND FOLLOW COMMANDS, WARM BLANKET APPLIED AND PT RESTING COMFORTABLY
--- NOTE | 2021-12-11 05:39 | NUR ---
PT MORE ALERT, ABLE TO STATE HIS NEEDS, DOES APPEAR RESTLESS, KEEPS PULLING AT LINES AND CARDIAC LEADS, ON 2 LPM O2 VIA NC, AFIB RATE CONTROLLED AT THIS TIME, DILT DRIP TITRATED DOWN TO 2.5 MG/HR, PT REMAINS INCONTIENT HOWEVER IS ABLE TO STATE WHEN HE NEEDS CHANGED, 2 BOWEL MOVEMENTS LAST NIGHT, PT IS HIGH FALL RISK, BED ALARM ON AND BED IN LOWEST POSITION
--- NOTE | 2021-12-11 09:00 | NUR ---
INTO GARY'S ROOM FOR ASSESSMENT AND VITALS AND STUDIO MANAGER. PT REMAINS OFF DILT GTT SINCE 0630 THIS AM. PATIENT ALERT TO SELF, PLACE, AND YEAR AT THIS TIME.PT DOES NOT SEEM AGITATED AT THIS TIME. PT'S DAUGTHER RA ARRIVES AND STATES SHE IS A CAREGIVER, AND HER MOTHER WAS CALLED IN THE NIGHT STATING HOW HER FATHER WAS NOT DOING WELL,A ND SHE WANTED TO SEE HIM. ALLOWED INTO HIS ROOM WITH FULL PPE ON. PT'S ATTENDS CHANGED AND THERE WAS A SMALL BLOOD CLOT IN ATTENDS, AND PATIENT WAS ABLE TO VOID [address] RODAS AWARE. CONTINUE TO MONITOR.
--- NOTE | 2021-12-11 10:03 | NUR ---
DR. RODAS IN TO SEE PATIENT AT THIS TIME. PT REPORTS THAT HE IS FEELING GOOD OVERALL.
--- NOTE | 2021-12-11 11:36 | NUR ---
PATIENT UP TO BSC TO HAVE A BM AND VOID. PT THEN INTO CHAIR WITH CHAIR ALARM ON. PT NOW GETTING BACK INTO BED AND COVERED WITH WARM BLANKETS. PT ON ROOM AIR NOW AND SP02 IS 95-99%. WILL CONTINUE TO MONITOR. PT HAD POSITIVE BLOOD CULTURES REPORTED FROM LAB OF GR[facility] POSITIVE [facility] IN [place].
--- NOTE | 2021-12-11 12:45 | NUR ---
PATIENT FEBRILE OF 102.5 AXILLARY AT THIS TIME. BLOOD CULTURES ORDERED AND TO BE DRAWN. PT GIVEN VA TYLENOL DUE TO NOT BEING ABLE TO SAFELY TAKE MEDS OR WATER AT THIS TIME. SP02 IS 95% ON ROOM AIR. HR IN THE 100-110s, AFIB. CONTINUE TO MONITOR CLOSELY. BED ALARM ON FOR SAFETY.
--- NOTE | 2021-12-11 13:16 | NUR ---
LAB IN ROOM OBTAINING BLOOD CULTURES AT THIS TIME.
--- NOTE | 2021-12-11 13:36 | NUR ---
PATIENT REMAINS MORE ALTERED WHILE HIS TEMP IS ELEVATED. PT RESTLESS IN BED. ATTEMPTED TO TAKE DENTURES OUT BUT PATIENT WANTING TO KEEP THESE IN AT THIS TIME.
[2021-12-11] MEDS ORDERED: LISINOPRIL2.5 MG PO (15:41)
--- NOTE | 2021-12-11 17:25 | NUR ---
PATIENT'S ATTENDS CHANGED AND PT VOIDS OT URINAL FOR 150 ML DILUE URINE. PT NOW SITTING UP IN BED AND EATING DINNER. PT STILL UPSET THAT HE ISN'T LULU HOME TODAY. DISCUSSED THIS WITH PATIENT SEVERAL TIMES TODAY, AND EXPLAINED THAT HE IS STILL SPIKING FEVERS, HAVING POSITIVE BLOOD CULTURES AND NEEDING IV ABX. PT AGREEABLE TO STAY BUT DOES BECOME AGITATED EASILY WITH THIS NEWS. CONTINUE TO MONITOR. BED ALARM REMAINS ON FOR SAFETY.
--- NOTE | 2021-12-11 18:01 | NUR ---
PATIENT FINISHES HIS DINNER AND ONLY ATE ABOUT 25%. PT NOW RESTING WITH WARM BLANKET PROVIDED. BED ALARM REMAINS ON. NEW GOWN PROVIDED WELL AFTER SPILLING SOME FOOD ON GOWN. HR IN THE 90s AT THIS TIME. SP02 IS 94% ON ROOM AIR. CONTINUE TO MONITOR.
--- NOTE | 2021-12-11 21:34 | NUR ---
PT RESTING COMFORTABLY IN BED, APPEARS CALM, SLOW TO RESPOND HOWEVER ANSWERING QUESTIONS, STILL CONFUSED BUT PLESENT. HEART RATE RANGING FROM 90-110, DENIES SHORTNESS OF BREATH, RESPIRATIONS IN LOW 20S, NO ACCESSORY MUSCLE USE, ON ROOM AIR, AFEBRIL, NO IMMEDIATE CONCERNS, WILL CONTINUE TO MONITOR
--- NOTE | 2021-12-12 00:31 | NUR ---
RN PLACED O2 PATIENT HAS BRIEF DESATURAIONS ALONG WITH INCREASED RR.
--- NOTE | 2021-12-12 02:00 | NUR ---
DR RODAS CALLED, PT SPIKED TEMPERATURE, UNABLE TO FOLLOW COMMANDS, UNABLE TO GIVE PO LOPRESSOR. RECTAL TYLENOL GIVEN PER DEC, PER CLARK, WATCH HEART RATE FOR NOW, IF IT BECOMES ELEVATED CALL HIM BACK
--- NOTE | 2021-12-12 05:28 | NUR ---
PT RESTING IN BED, LETHARGIC, REMAINS CONFUSED. PT IS NOW AFEBRIL, AFIB WITH RATES RANGING FROM 100-120S, MORE PVCS NOTED TONIGHT THAN PREVIOUS NIGHTS, ON 2 L O2 VIA NC WHILE SLEEPING, SATS IN MID 90S, SOFT BLOOD PRESSURES HOWEVER MAINTAINING MAPS OVER 65. PT IS INCONTIENT, FREQUENT CHECKS TO ENSURE PT REMAINS CLEAN AND DRY, NO IMMEDIATE CONCERNS, WILL CONTINUE TO MONITOR
--- NOTE | 2021-12-12 07:28 | NUR ---
REPORT REC'D FROM DISH ROOM WORKER AND PLAN OF CARE RESUMES. PT NOTED TO BE LAYING AWAKE IN BED AND ATTEMPTING TO USE URINAL. SP02 IS 98% AT THIS TIME ON 2 L. HR IN THE 100-110s, AFIB.
--- NOTE | 2021-12-12 07:37 | NUR ---
DR. RODAS CALLS AND ORDERS REC'D FOR CHANGING METOPROLOL FROM SHORT ACTING TO EXTENDED RELEASE. WILL NOTIFY DR. RODAS IF SBP <95.
--- NOTE | 2021-12-12 08:08 | NUR ---
IN PATIENT'S ROOM FOR ASSESSMENT AND COVERING MACHINE TENDER. PT GIVEN EXTENDED RELEASE METOPROLOL THIS AM. PT ALERT, ORIENTED TO PLACE, YEAR, AND SELF BUT NOT EVENT. PT IS CALM AND COOPERATIVE. BED ALARM REMAINS ON FOR SAFETY. PT DENIES HAVING ANY PAIN OR DISCOMFORT. PT NOW ON ROOM AIR AND SP02 IS 97%. CONTINUE TO MONITOR.
--- NOTE | 2021-12-12 09:38 | NUR ---
DR. RODAS IN TO SEE PATIENT. PATIENT UP TO BSC TO VOID AND HAD A LIQUID BM. PT NOW IN CHAIR. LASIX BEING HELD THIS AM. PT ABLE TO DRINK ORAL POTASSIUM. CHEST XRAY NOW BEING COMPLETED. CHAIR ALARM ON. CONTINUE TO MONITOR.
--- NOTE | 2021-12-12 11:08 | NUR ---
PATIENT TAKEN DOWN TO CT FOR SCAN OF CHEST/ABD/PELVIS W/O CONTRAST. PT TOLERATED WELL. PT'S DAUGHTER ARRIVES NOW AT THIS TIME. UPDATE PROVIDED. PT IS BREATHING 30 AT THIS TIME, AND TEMP CHECKED AND APPEARS TO BE 97.5 AXILLARY, ALTHOUGH THIS IS ABOUT THE TIME PATIENT STARTED TO SPIKE A FEVER LAST NIGHT. WILL CONTINUE TO MONITOR CLOSELY. PT ATTEMPTING TO VOID TO URINAL. PO DEMADEX TO BE GIVEN.
--- NOTE | 2021-12-12 12:31 | NUR ---
PATIENT GIVEN 1 UNIT OF INSULIN FOR A CBG OF 168. PT STARTING TO HAVE FEVER AGAIN, EVIDENCED BY RIGORS AND CHILLS. AXILLARY TEMP 99.5. WARM BLANKETS PROVIDED TO HELP WITH RIGORS. PT UNINTERESTED IN FOOD AT THIS TIME. PERFUSION WORSE WITH THESE FEVERS AND MOTTLING TO ENTIRE BODY RETURNS WITH THESE FEVERS. CONTINUE TO MONITOR CLOSELY.
--- NOTE | 2021-12-12 13:19 | NUR ---
PT'S FEVER UP TO 101.7 AXILLARY. PT MOTTLED IN LEGS, LIPS DUSKY COLORED, AND PT CONTINUE WITH THE EXTREME RIGORS AND CHILLS. WHILE PT IS FEVERING LIKE THIS, NOT ABLE TO COMMUNICATE VERY WELL. BLOOD CULTURES ORDERED PER PRN ORDER FOR ANY TEMP >38.[address] RODAS NOTIFIED. RECTAL TYLENOL GIVEN.
--- NOTE | 2021-12-12 15:52 | NUR ---
IN TO CHANGE PTS ATTENDS. PT SOAKED IN URINE AND STOOL. WHEN PT TURNED TO SIDE, NOTED TO HAVE RED AREA, NON BLANCHABLE TO COCCYX APPROX SIZE OF 50 CENT PIECE. VERY SMALL AREA THAT APPEARS TO BE OPEN WELL. PT TURNED TO LEFT SIDE. ALLYVN DRESSING APPLIED AND PRIMARY NURSE NOTIFIED.
--- NOTE | 2021-12-12 16:19 | NUR ---
PATIENT STILL FEBRILE AT 100.[address] RODAS PUTTING IN ORDERS FOR ADDITIONAL DOSE OF TYLENOL SUPP. PT STILL DROWSY FROM HIS FEVER AND BREATHING FAST. CURRENT RR IS 24-33. PT REMAINS ON ROOM AIR. CONTINUE TO MONITOR CLOSELY,.
--- NOTE | 2021-12-12 21:16 | NUR ---
PT AWAKE, ALERT, DIORIENTED TO EVENT HOWEVER ANSWERING QUESTIONS. HEAD TO TOE ASSESSMENT COMPLETED, EVENING MEDS GIVEN PER DEC, BLOOD SUGAR WNL, ASSISTED PT TO BEDSIDE COMMONDE, WEAK, 1 PERSON ASSIST, PT URINATED AND HAD LIQUID BOWEL MOVEMENT, PT CLEANED, BACK IN BED, RESTING COMFORTABLY, HEAD OF BED SLIGHTLY ELEVATED, BED IN LOWEST POSITIONED, BED ALARM TURNED ON
--- NOTE | 2021-12-13 01:26 | NUR ---
PT RESTING IN BED, SOME CONFUSION, PT DOES NOT REMEMBER WHERE HE IS OR WHY UNTIL HE IS CUED. IS ATTEMPTING TO EXIT BED HOWEVER REDIRECTABLE, TEMPERATURE CHECKED, PT AFEBRILE. BED IN LOWEST POSITION WITH BED ALARM SET, WILL CONTINUE FREQUENT ROUNDING ON PT
--- NOTE | 2021-12-13 01:37 | NUR ---
15 BEAT VRUN, APROX [address] RODAS NOTIFIED. RN HELPING PT GET REPOSITIONED WHEN V RUN OCCURED. PT RETURNED TO AFIB WITH A RATE IN THE 90S
--- NOTE | 2021-12-13 02:43 | NUR ---
IV PUMP ALARMING, INFUSION COMPLETED. IV SALINE LOCKED. BED ALARM REMAINS ON FOR SAFETY.
--- NOTE | 2021-12-13 06:31 | NUR ---
PT RESTING IN BED, HEART RATE IN 90S-110S, REMAINED ON ROOM AIR THROUGHOUT NIGHT, PT HAD LOW GRADE FEVER EARLIER, PRN TYLENOL GIVEN, SEE MAR, PT INCONTIENT, BREIF CHANGED, PERICARE PERFORMED, VITALS WNL, REVIEWED LABS, NO CONCERNS AT THIS TIME
--- NOTE | 2021-12-13 07:53 | NUR ---
REPORT RECEIVED FROM TYE RICKETTS. THIS RN ASSUMING CARE OF PT. PT RESTING IN BED WITH EYES CLOSED. HEART RATE 127, OXYGEN SATUATIONS 99% ON ROOM AIR WITH RR OF 19. ECHO TECHNITIAN AT BEDSIDE FOR ECHOCARDIOGRAM. BED RAILS UP. CALL LIGHT WITHIN REACH. NO ADDIITONAL NEEDS AT THIS TIME.
--- NOTE | 2021-12-13 08:22 | NUR ---
MORNING ASSESSMENT AND MEDICATION DUE. PT RESTING IN BED, ALERT. PT RESPONDS AT TIMES TO QUESTIONS. PT ORIENTED TO PLACE AND SELF, PT FOLLOWS DIRECTIONS WITH REPEATED PROMPTING. PT REMAINS DISORIENTED TO DATE AND EVENTS. PT DENIES PAIN AND NAUSEA. 2 PERSON ASSIST TO STAND AND SHUFFLE TO CHAIR. PT UNSTEADY ON FEET. HAS TROUBLE MOVING LEFT FOOT MORE THAN RIGHT. GENERALIZED WEAKNESS NOTED. RESPIRATORY RATE INCREASES TO 30'S WITH ACTIVITY. PT REPORTS PAIN AT RIGHT FORARM IV SITE, LEAKING ALSO NOTED WITH FLUSH. RIGHT FORARM IV DC'D PER PROTOCOL. GAUZE AND COBAN APPLIED. LEFT FORARM IV SITE WNL, NO S/S OF PHLEBITIS NOTED. IV ABX STARTED. LUNG SOUNDS CLEAR. RR SLOWS TO 20-28 WITH REST. OXGYEN SATURATION REMAINS ABOVE 94% ON ROOM AIR. AFIB RHYTHEM CONTINUES ON MONITOR WITH HR 90-110'S. PT DECLINES BREAKFAST STATING HE DOES NOT LIKE OATMEAL. AGREES TO MILKSHAKE, ENSURE MILKSHAKE ORDERED. DEPENDS WET WITH YELLOW URINE, CHANGED, ABDOULAYE CARE DONE. ALLEVYN TO COCCYX REMAINS INTACT, NO DRAINAGE NOTED. PT REMAINS UP TO CHAIR. CALL LIGHT WITHIN REACH. CHAIR ALARM ON. NO ADDITIONAL REQUESTS OR COMPLAINTS.
--- NOTE | 2021-12-13 09:09 | NUR ---
THIS RN TO ROOM TO CHECK ON PT. PT REMAINS UP TO CHAIR. BLOOD PRESSURE NOTED TO BE 80'S/50'S ON MONITOR. PT DENIES DIZZINESS. MANUAL BLOOD PRESSURE TAKEN AND FOUND TO BE 84/56. WILL UPDATE MD. PT SLOWLY SIPPING ON BREAFAST LIQUIDS. PT CONTINUES TO DENY PAIN AND NAUSA. NEW IV STARTED TO LEFT FORARM PER PROTOCOL. BRISK BLOOD RETURN NOTED. VANCO STARTED. MD UPDATED ON PTS BLOOD PRESSURE. AWAITING NEW ORDERS. PT CONTINUES ANSWERING QUESTIONS APPRPRIATLY. PT REPORTS HE "LIKES" THE ENSURE MILKSHAKE. NO ADDITIONAL REQUESTS OR COMPLAINTS. CALL LIGHT WITHIN REACH. CHAIR ALARM ON.
--- NOTE | 2021-12-13 09:44 | NUR ---
CHAIR ALARM SOUNDING. PT SLIDING DOWN SLIGHTLY IN CHAIR. PT REPOSIIONED AND BOOSTED IN CHAIR. PT REPORTS HE IS FINISHED WITH BREAKFAST. PT ABLE TO DRINK ~2/3 OF ENSURE MILKSHAKE AND ATE A FEW PICES OF BANNANA. PT DENIES PAIN AND NAUSEA. BLOOD PRESSURE IMPROVING. NO ADDITIONAL REQUESTS OR COMPLAINTS. CALL LIGHT WITHIN REACH. CHAIR ALARM ON.
--- NOTE | 2021-12-13 10:30 | NUR ---
THIS RN TO ROOM TO CHECK ON PT. PT REMAINS UP TO CHAIR. PUMP ALARMING, VANCO INFUSION COMPLETE. IV FLUSHED AND SALINE LOCKED PER PROTOCOL, ALCOHOL CAP APPLIED. VITALS SIGNS STABLE. PTS COGNITION AND WORD FINDING IMPROVED AT THIS TIME. PT TALKS ABOUT WHERE HE LIVES AND HIS . PT UPDATED ON PLAN OF CARE. PT REQUESTS THAT HIS BE UPDATED AND ASKED TO COME AND VISIT. PT DENIES ADDIITONAL REQUESTS OR COMPLAINTS. CALL LIGHT WITHIN REACH. CHAIR ALARM ON. ERROR: NOTED THAT PREVIOUS IV CHARTING IS INCORRECT. RIGHT FORARM IV WAS DC'D THIS MORNING PER PROTOCOL. LEFT FORARM IV REMAINS IN PLACE AND IS INFUSING ABX. IV SITE WNL, NO S/S OF PHLEBITIS NOTED.
--- NOTE | 2021-12-13 10:35 | NUR ---
PTS ALLY CALLED AND UPDATED ON PT STATUS AND PLAN OF CARE. ALLY VERBALIZES UNDERSTANDING OF PT CONDITION AND PLAN OF CARE. ALLY STATES HER QUESTIONS HAVE BEEN ANSWERED AND STATES THAT SHE IS ON HER WAY TO VISIT PT. PT UPDATED AND STATES HE IS GLAD HIS IS COMING TO VISIT. NO ADDIITONAL REQUESTS OR COMPLAINTS. CALL LIGHT WITHIN REACH. CHAIR ALARM ON.
--- NOTE | 2021-12-13 10:38 | NUR ---
CARE OF PATIENT RESUMED AT THIS TIME. PT SITTING IN CHAIR RESTING. PT'S IS COMING IN TO SEE PATIENT AFTER TYE MURRAY CALLED AND GAVE HER AN UPDATE.
--- NOTE | 2021-12-13 10:44 | NUR ---
REPORT GIVEN TO TYE RICKETTS, WHO IS ASSUMING CARE OF PT.
--- NOTE | 2021-12-13 11:17 | NUR ---
PATIENT'S NAIN ARRIVES AND NOW IN ROOM VISITING WITH PATIENT. PATIENT REMAINS SITTING UP IN CHAIR AND DOING WELL. HR 90-100s. LAST BP 97/82 (89).
--- NOTE | 2021-12-13 12:19 | NUR ---
Patient sitting up in chair for lunch, at his side. fresh ice water provided.chair alarm on for safety
--- NOTE | 2021-12-13 15:29 | NUR ---
THIS AUTO DISMANTLER IN ROOM, PATIENT STIRRING IN BED, COULDN'T VERBALIZE WHAT HE NEEDED, IT WAS DETERMINED HE NEEDED TO VOID. PATIENT WAS ABLE TO STAND WITH ASSISTANCE USE URINAL. PATIENT NOW IN CHAIR, LEGS ELEVATED AND ALARM ON FOR SAFETY. APPLESAUCE PROVIDED, AND CALL LIGHT IN EASY REACH. TEMP OF 97.9 NOTED.
--- NOTE | 2021-12-13 21:00 | NUR ---
pt assessment completed, meds reviewed and given per dec, pt incontinent of stool, pt changed, fever is slowly coming down from previous tylenol administration from day shift, vital signs wnl, pt in afib with rates under 100, no immediate concerns, will continue to monitor
--- NOTE | 2021-12-14 03:18 | NUR ---
PT RESTING IN BED, ATTENDS CHECKED, DRY, VITALS WNL, IVS SALINE LOCKED, NO IMMEDIATE CONCERNS, WILL CONITNUE TO [facility]
--- NOTE | 2021-12-14 06:12 | NUR ---
PT RESTING, ATTENDS CHANGED, VITALS WNL, NO LABS TO REVIEW AT THIS POINT, NO IMMEDIATE CONCERNS
--- NOTE | 2021-12-14 07:45 | NUR ---
Update from Rn. States pt is awake in the ams and mentally declines as the day goes on. Cont. with fevers, not ready for dc per Dr. Espinal.
--- NOTE | 2021-12-14 09:08 | NUR ---
PATIENT UP TO CHAIR FOR BREAKFAST, LINENS CHANGED. BEDBATH GIVEN AND CHAIR ALARM ON FOR SAFETY. CALL LIGHT IN EASY REACH
--- NOTE | 2021-12-14 09:15 | NUR ---
PATIENT SITTING UP IN CHAIR AND APPEARS VERY TIRED. PT NOT ORIENTED TO PLACE OR YEAR, BUT WHEN ASKING HOW HE FEELS, HE STATES, "WITH MY FINGERS." PATIENT ABLE TO TAKE PO MEDS WITH SIPS OF WATER. PT HELPED TO TAKE BITES OF PEACHES WHICH HE TOLERATED WELL. PT QUICKLY DRIFTS BACK TO SLEEP WHEN NOT BEING ENGAGED WITH. HR IN THE 80-90s, AFIB. CONTINUE TO MONITOR.
--- NOTE | 2021-12-14 12:15 | NUR ---
PATIENT BACK TO BED AFTER VOIDING TO COMMODE. PT HELPED TO SIT UP IN BED AND PROVIDED WITH LUNCH, BUT NOT VERY HUNGRY. ADDITIONAL DOSE OF IV DIGOXIN GIVEN, AND SS COVERAGE OF INSULIN PROVIDED. PT STATES HE IS FEELING OKAY WHEN ASKED, BUT SEEMS VEYR TIRED TODAY AND FALLS BACK ASLEEP EASILY. PT REMAINS IN AFIB 70-80s.
--- NOTE | 2021-12-14 14:54 | NUR ---
PHYS THERAPY IN ROOM WITH PATIENT AT THIS TIME. PT TOLERATING FAIR.
--- NOTE | 2021-12-14 17:13 | NUR ---
Called and spoke with pts Guera. Updated I have sent pts chart to [facility]. Awaiting to hear when they will have a bed open. states she would either like a SNF or Hospice on discharge. Discussed Hospice would mean pt going home with family caring for him. She does not think she would be able to provide this care. Discussed pt is not ready for dc yet and will see if a SNF will accept him. She does state she was able to visit yesterday.
--- NOTE | 2021-12-14 19:08 | NUR ---
IN ROOM FOR REPORT, PT IS AWAKE IN BED. BOOSTED PT IN BED WITH ENRIQUETA GAMBLE. PT DENIES NEEDS AT THIS TIME. CALL LIGHT IS CLOSE AND BED ALARM IS ON.
--- NOTE | 2021-12-14 20:48 | NUR ---
WOKE PT TO CHANGE ATTENDS, ASSESS AND ADMINISTER MEDICATIONS. PT ANSWERS SOME QUESTIONS WITH SHORT ANSWERS BUT SOME QUESTIONS PT DOES NOT ANSWER. PT INCONTINENT OF URINE, DRY ATTENDS ARE IN PLACE. IV DIFLUCAN IS INFUSING AT THIS TIME. PT RR INCREASED WHICH IT HAS BEEN AT 24. BP IS RUNNING SOFT BUT IT HAS BEEN FOR THE LAST FEW DAYS. AFTER REPOSITIONING PT HE IS RESTING WITH EYES CLOSED, RR IS EVEN AND UNLABORED. CALL LIGHT IS CLOSE AND BED ALARM IS ON.
--- NOTE | 2021-12-14 21:22 | NUR ---
NOTIFIED DR CHIRINOS OF PT'S 88/66 BP. ORDERS TO REASSESS AT 2300 AND LET HIM KNOW IF HE IS TRENDING DOWN. NO FURTHER ORDERS RECEIVED.
--- NOTE | 2021-12-14 22:07 | NUR ---
IN ROOM TO START IV CEFEPIME. PT DENIES NEEDS AT THIS TIME. CALL LIGHT IS CLOSE AND BED ALARM IS ON.
--- NOTE | 2021-12-14 23:22 | NUR ---
BP IMPROVED AT THIS TIME. IV LEVAQUIN NOW INFUSING PER ORDERS. PT NOW RESTING WITH EYES CLOSED, RR IS EVWN AND UNLABORED. CALL LIGHT IS CLOSE AND BED ALARM IS ON.
--- NOTE | 2021-12-15 00:27 | NUR ---
PT'S IV PUMP WAS BEEPING, IT IS NOW INFUSING FINE. 1PA WITH FWW TO RESTROOM, PT WAS VERY SLOW MOVING AND HAD DIFFICULTY USING THE WALKER AND DIFFICULTY FOLLOWING DIRECTIONS TO SIT ON THE TOILET. 2PA W/FWW BACK TO BED, HE VOIDED URINE AND LIQUID BM. PT DENIES FURTHER NEEDS, CALL LIGHT IS CLOSE AND BED ALARM IS ON.
--- NOTE | 2021-12-15 02:50 | NUR ---
PT IS RESTING WITH EYES CLOSED, RR IS EVEN AND UNLABORED. CALL LIGHT IS CLOSE AND BED ALARM IS ON.
--- NOTE | 2021-12-15 03:34 | NUR ---
IN ROOM TO FIX BEEPING IV PUMP IT IS NOW INFUSING FINE. PT IS LAYING AWAKE IN BED. HE ANSWERS SOME QUESTIONS BUT NOT ALL. PT DENIES PAIN AT THIS TIME. CALL LIGHT IS CLOSE AND BED ALARM IS ON.
--- NOTE | 2021-12-15 05:31 | NUR ---
BED ALARM SOUNDED, PT WAS JUST MOVING HIS LEGS IN BED. VS TAKEN AND ENTERED. RR IS TACHY AND PT HAS PERIODS OF APNEA WHILE SLEEPING. BP IS MAINTAINING. WARM BLANKET PROVIDED FOR PT. HE DENIES NEEDS AT THIS TIME. CALL LIGHT IS CLOSE.
--- NOTE | 2021-12-15 06:07 | NUR ---
PT'S RR IS 26, IT HAS BEEN IN THE 20'S AND 30'S DURING HIS STAY HERE. SENT MSG TO DR CHIRINOS.
--- NOTE | 2021-12-15 06:55 | NUR ---
CHANGED PT'S ATTENDS WITH TRAVIS CAMILO, PT HAD A SMALL AMOUNT OF URINE IN ATTENDS. PT DENIES NEEDS. CALL LIGHT IS CLOSE AND BED ALARM IS ON.
--- NOTE | 2021-12-15 07:07 | NUR ---
REPORT RECEIVED FROM TYE BROUSSARD. PT RESTING IN BED ON BACK. RESPIRATIONS EVEN AND UNALBORED. PT DENIES PAIN AND NAUSEA. PT REQUESTS A MILKSHAKE FOR BREAKFAST (ORDERED). KITCHEN REQUESTED TO SENT ENSURE MILKSHAKES WITH ALL MEALS. TELEMENTRY REMAINS IN AFIB RHYTHEM WITH HR OF 60-80'S. NO ADDIITONAL REQUESTS OR COMPLAINTS. CALL LIGHT WITHIN REACH. BED RAILS UP.
--- NOTE | 2021-12-15 07:52 | NUR ---
MORNING ASSESSMENT AND MEDICATION DUE. PT RESTING IN BED. AWAKE AND ALERT. PT DENIES PAIN "UNLESS I MOVE MY HAND A CERTAIN WAY." INDICATING HIS RIGHT HAND. PT UNABLE TO FURTHER CLARIFY OR RATE PAIN. 0/10 FLACC SCORE. IV'S ASSESSED. RIGHT FORARM WNL, NO S/S OF PHLEBITIS NOTED, BRISK BLOOD RETURN NOTED. IV ABX STARTED THROUGH THIS LINE. LEFT FORARM IV SITE PAINFUL WITH FLUSHING, SWELLING NOTED. IV DC'D PER PROTOCOL. GAUZE AND COBAN APPLIED. PT DISORIENTED TO PLACE, TIME AND DATE. PT STATES "SOMETIMES WHEN YOURE OLD ITS HARD TO REMEMBER." PT ANSWERING QUESTIONS APPROPRIATLY ALTHOUGH SLOW TO RESPOND. STRENGTH EQUAL BILATERALLY ALTHOUGH PT HAS COORDINATION DIFFICULTY WITH LEFT LEG. PT UP TO CHAIR WITH 2 PERSON ASSIST, PT ABLE TO TAKE SHUFFELING STEPS TO CHAIR. IRREGULAR HERAT RATE HEARD. PT REMAINS IN AFIB RYTHEM PER TELEMETRY MONITORING. BLOOD PRESSURE NOTED TO BE 90'S/70'S. ALLEVYN REMAINS C/D/I, NO DRAINAGE NOTED. CALLED AND UPDATED ON PT STATUS. ORDERS GIVEN TO DC' LONG ACTING METOPROLOL AND START SHORT ACTING METOPOLOL, REPEAT BACK DONE WITH NEW ORDERS. ORDERS ENTERED. MEDICATIONS GIVEN. PT REMAINS UP TO CHAIR. CHAIR ALARM ON. WARM BLANEKTS PROVIDED. LINENS CHANGED. NO ADDITIONAL REQUESTS OR COMPLAINTS. CALL LIGHT WITHIN REACH.
--- NOTE | 2021-12-15 09:30 | NUR ---
THIS RN TO ROOM TO CHECK ON PT. PT UP TO CHAIR AND ATTEMPTING TO REPOSITION. PT APPEARS UNCOMFORTABLE. PT TRANSERED TO A NEW CHAIR WITH 2 PERSON ASSIST AND FWW. PT RELAXES AND APPEARS MORE COMFORTABLE. NEW IV STARTED IN LEFT AC PER PROTOCOL, BRISK BLOOD RETURN NOTED. VANCO STARTED. PT RESTING IN CHAIR WITH EYES CLOSED. RESPIRATIONS EVEN AND UNLABORED. CHAIR ALARM ON. CALL LIGHT WITHIN REACH.
--- NOTE | 2021-12-15 11:00 | NUR ---
THIS RN TO ROOM TO CHECK ON PT. PT HAS SPILLED ENSURE MILKSHAKE OVER HIMSELF. PT UP TO SHOWER CHAIR WITH 2 PERSON ASSIST. SHOWER, SHAMPOO, ABDOULAYE CARE AND SKIN CARE. ALLEVYN TO COCCYX CHANGED. WOUND NOTED AT COCCYX A STAGE 2 PRESSURE ULCER MEASURING 1.5CM LONG AND 0.25CM WIDE. WOUND EDGES VIABLE. NON BLANCHABLE REDDNESS SURROUNDING WOUND IN A 1CM MARGIN. NEW ALLEVYN APPLIED. 2 PERSON ASSIST BACK TO BED. IV ABX CONTINUE INFUSING. NO ADDITIONAL REQUESTS OR COMPLAINTS. WARM BLANKETS PROVIDED. HEAD OF BED ELEVATED TO 29 DEGREES. PT POSITIONED ON RIGHT SIDE, SUPPORTED WITH PILLOWS. BED RAILS UP. CALL LIGHT WITHIN REACH.
--- NOTE | 2021-12-15 11:30 | NUR ---
Spoke with pt and he is tired. FAlls asleep during our conversation. Able to answer a few questions. Will fax chart for SNF to [facility]. Notified by text today, [facility] is not taking pts this week. Unclear if they can take pts next week.
--- NOTE | 2021-12-15 11:38 | NUR ---
THIS RN TO ROOM TO CHECK ON PT. PT RESTING WITH EYES CLOSED. AWAKENS TO TOUCH. BLOOD SUGAR TAKEN. INSULIN SIDING SCALE GIVEN. IV'S WNL. NO S/S OF PHLEBITIS NOTED. NO ADDITIONAL NEEDS AT THIS TIME. CALL LIGHT WITHIN REACH. BED RAILS UP.
--- NOTE | 2021-12-15 11:55 | NUR ---
PTS , ALLY, CALLED WITH UPDATE. ALLY VERBALIZES UNDERSTANDING OF PLAN OF CARE AND PT STATUS. ALLY STATES HER QUESTIONS HAVE BEEN ANSWERED.
--- NOTE | 2021-12-15 12:05 | NUR ---
PT ASSISTED WITH EATING LUNCH. PT TAKES 2-3 DRINKS OF ENSURE MILKSHAKE, ~10%. AND TWO BITES OF SOUP BEFORE DECLINING ADDITIONAL FOOD. PT RESTING WITH EYES CLOSED, RESPIRATIONS EVEN AND UNLABOED. HEAD OF BED ELEVATED TO 40 DEGREES WITH PT IN SEMIFOWLER POSITION. NO ADDITIONAL NEEDS AT THIS TIME. PT ALLOWED TO REST. CALL LIGHT WITHIN REACH. BED ALARM ON.
--- NOTE | 2021-12-15 13:00 | NUR ---
VITALS AND ASSESSMENT DUE. PT TRYING TO CLIMB OUT OF BED. PT DENIES PAIN AND NAUSEA. PT IS OTHERWISE COMPLETE DISORIENTED. WHEN ASKED HIS NAME PT STATES "[employer]." PT NO LONGER FOLLOWING DIRECTIONS. LOW BLOOD PRESSURE NOTED. VANCO INFUSION COMPLETE. RIGHT FORARM IV FLUSHED AND SALINE LOCKED, ALCOHOL CAP APPLIED. LUNG SOUNDS CLEAR. PT DOING 1 MINUTE PERIODS OF LABORED BREATHING WITH RR 24-30 AND THEN CLAMS WITH NORMAL BREATHING NOTED. HEART RATE 80-90'S IN AFIB RYTHEM. ALLEVYN REMAINS INTACT TO COCCYX. DEPENDS CHANGED. ABDOULAYE CARE DONE. MD TO BEDSIDE AND UPDATED ON PT ASSESSMENT. NEW ORDERS PLACED. NO ADDITIONAL REQUESTS OR COMPLAINTS. PT REPOSITIONED TO LEFT SIDE WITH HEAD OF BED ELEVATED TO 30 DEGREES. BED RAILS UP. BED ALARM ON. CALL LIGHT WIHTIN REACH.
--- NOTE | 2021-12-15 13:20 | NUR ---
X-RAY TO BEDSIDE FOR IMAGING. PT AGITATED WITH IMAGING. PT REPOSITIONED IN BED AFTER IMAGING AND DRIFTS QUICKLY OFF TO SLEEP. ~5-20 SECOND APNIC PERIODS NOTED BETWEEN PERIODS OF 20-30 RESPIRATORY RATES. VITALS SIGNS REASSESSED, BLOOD PRESSURE REMAINS LOW. HEART RATE NOTED TO BE 50-60'S. PT REACHING FOR NONEXISTANT ITEMS IN THE AIR. MD UPDATED. ORDERS GIVEN. IV FLUIDS BOLUS STARTED. ORDERS FROM MD TO HOLD METOPROLOL DOSE. MD TO BEDSIDE TO EVALUATE PT AND STATES HE WILL TALK WITH PTS FAMILY. PT AWAKENS INTERMITTANTLY AND OCCATIONALLY RESPONDS TO QUESTIONS. NO ADDITIONAL NEEDS AT THSI TIME. CALL LIGHT WITHIN REACH. BED RAILS UP. BED ALARM ON.
--- NOTE | 2021-12-15 14:04 | NUR ---
THIS RN TO ROOM TO CHECK ON PT. PT AWAKEN IN BED. MOVING ARMS AND LEGS. BREATHING PATTERN REGULAR. MONITOR SHOWS AFIB RHYTHEM WITH HR OF 60-70'S. IV FLUIDS CONTINUE. NO ADDITIONAL NEEDS AT THSI TIME. CALL LIGHT WITHIN REACH. BED RAILS UP. BED ALARM ON.
--- NOTE | 2021-12-15 14:57 | NUR ---
PUMP ALARMING. IV FLUID BOLUS COMPLETE. IV FLUSHED AND SALINE LOCKED, ALCOHOL CAP APPLIED, NO S/S OF PHLEBITIS NOTED. PT REMAINS DISORIENTED TO ALL. VITAL SIGNS TAKEN, BLOOD PRESSURE IMPROVING. RR= 24-32, INTERMITTANT IRREGULAR BREATHING NOTED. PT CONTNIUES REACHING AT THE AIR AND AT ITEMS ARROUND HIM. PT REPOSITIONED TO SEMI FOWELER POSITION WITH HEAD OF BED RAISED TO 30 DEGREES. MD DE LA PAZD ON PT STATUS. NO ADDITIONAL NEW ORDERS. BED RAILS UP. CALL LIGHT WITHIN REACH. BED ALARM ON.
--- NOTE | 2021-12-15 15:50 | NUR ---
AFTERNOON ASSESSMENT DUE. THIS RN TO ROOM. PT AWAKE AND ALERT. PT REMAINS DISORIENTED TO ALL BUT FOLLOWING DIRECTIONS. PT ANSWERS QUESTIONS WHEN ASKED AND REPORTS FEELING COMFORTABLE. PT DENIES PAIN AND NAUSEA. RESPIRATIONS NOW EVEN AND UNLABORED ALTHOUGH MILDY TACHYPENIC AT 28. STRENGTH EQUAL BILATERALLY. PT REPORTS HE WOULD LIKE TO GET UP TO CHAIR. GUIDE WINDER SHOWS AFIB RYTHEM WITH RATE OF 70-80'S. VITALS ASSESSED, LUNG SOUNDS CLEAR. INCONTINANCE NOTED. ABDOULAYE CARE DONE, DEPENDS CHANGED. PT CONTINEUS TO STATES "I NEED TO GET UP." 2 PERSON ASSIST UP TO CHAIR. HEART RATE REMAINS 70-80'S WITH ACTIVITY. PT RESTING IN CHAIR, RECLINED, SUPPORTED WITH PILLOWS, WITH EYES CLOSED. PT ASSISTED WITH DRINKING WATER. NO ADDITIONAL REQUESTS OR COMPLAINTS. CALL LIGHT WITHIN REACH. CHAIR ALARM ON.
--- NOTE | 2021-12-15 17:06 | NUR ---
PT ASSISTED WITH EATING DINNER. PT DECLINES RICE AND BROCCOLI BUT EATS CHICKEN. ENSURE ALSO PROVIDED. PT REMAINS UP TO CHAIR FOR DINNER. PT ABLE TO FEED SELF IF FORK IS LOADED. PT DRINKS ~ % OF ENSURE MILKSHAKE. PT WATCHING TV. NO ADDITIONAL REQUESTS OR COMPLAINTS. CALL LIGHT WITHIN REACH. CHAIR ALARM ON.
--- NOTE | 2021-12-15 17:19 | NUR ---
PT HERE FOR AFIB RVR, UTI, AND FEVER. PT UP WITH 1-2 PERSON ASSIST TO CHAIR SHOWER AND WITH PHYSICAL THERAPY THIS SHIFT. PT HAS MINIMAL APPITITE FOR 60G CARB DIET. ENSURE MILKSHAKES PROVIDED. TELEMETRY MONITORING SHOWS AFIB RYTHEM FROM 50-90'S THIS SHIFT. METOPROLOL HELD AND DC'D RELATED TO BLOOD PRESSURE. BLOOD PRESSURE REMAINS LOW THROUGHOUT SHIFT. 500ML FLUID BOLUS GIVEN. PT ORIENTED THIS MORNING BUT COMPLETELY DISORRIENTED IN THE AFTERNOON. PT FOLLOWS DIRECTIONS MOST OF THE TIME. EPISODE THIS AFTERNOON AT ~1300 WHERE PT WAS HAVING APNIC PERIODS AND NOT FOLLOWING DIRECTIONS, RESOLVED WITH TIME AND FLUIDS, MD AWARE. BLOOD SUGAR CHECKS WITH MEALS, SLIDIGN SCALE INSULIN GIVEN. PT REMAINS AFEBRIAL SO FAR THIS SHIFT. PT CONTINUES TO BE INCONTINANT, ABDOULAYE CARE DONE, QUANTITY SUFFICIENT. SHOWER THIS SHIFT. ALLEVYN TO COCCYX CHANGED. PT DOES NOT USE CALL LIGHT OR MAKES NEEDS KNOWN. CHAIR/BED ALARM FOR SAFETY. ROOM NEAR NURSES STATION.
--- NOTE | 2021-12-15 17:54 | NUR ---
THIS RN TO ROOM TO CHECK ON PT. VITAL SIGNS STABLE, BLOOD PRESSURE IMPROVING. PT REPORTS HE FEELS COMFORTABLE. PT WATCHING TV. NO ADDITIONAL REQUESTS OR COMPLAINTS. CALL LIGHT WITHIN REACH. CHAIR ALARM ON.
--- NOTE | 2021-12-15 18:31 | NUR ---
THIS RN TO ROOM TO CHECK ON PT. PT REMAINS UP TO CHAIR. PT AGITATED STATING "I'M EXPECTED IN [place]! THIS ENDS TO NIGHT! I'M GOING BACK." PT REORIENTED TO PLACE AND SITUATION. PT UNABLE TO VERBALIZE UNDESTANDING. PT REMAINS UP TO CHAIR. CALL LIGHT WITHIN REACH. CHAIR ALARM ON.
--- NOTE | 2021-12-15 18:40 | NUR ---
PT CONTINUES TO BE AGITATED. TRYING TO GET OUT OF CHAIR STATING "I NEED TO GET BACK TO [place]." 2 PERSON ASSIST, PIVOT BACK TO BED. DEPENDS WET, ABDOULAYE CARE DONE. DEPENDS CHANGED. PT REORIENTED TO PLACE AND SITUATION AND STATES "I DON'T BELIVE YOU." PT RESTING IN BED, BED RAILS UP. CALL LIGHT WITHIN REACH. BED ALARM ON.
--- NOTE | 2021-12-15 19:47 | NUR ---
REPORT RECEIVED FROM DAY SHIFT RN. PT LYING IN BED AWAKE. ANSWERS SIMPLE YES/NO QUESTIONS. DENIES NEEDS. WHITE BOARD UPDATED. CALL LIGHT IN REACH. BED ALARM ON PT IN VIEW OF NURSES STATION.
--- NOTE | 2021-12-15 21:30 | NUR ---
EVENING ASSESSMENT COMPLETE. SCHEDULED MEDS ADMINISTERED PER EMAR. PRN ADMIN FOR DISCOMFORT. PT UNABLE TO ANSWER ORIENTATION QUESTIONS. FOLLOWS COMMANDS AND COOPERATIVE WITH CARES. PT INCONTINENT OF URINE. ABDOULAYE CARE DONE. CLEAN BRIEF PLACED. 2PA TO REPOSITION IN BED. TELE #8. IRREGULAR. HR 80-90'S. NO FURTHER NEEDS. CALL LIGHT IN REACH. BED ALARM FOR SAFETY.
--- NOTE | 2021-12-15 23:55 | NUR ---
PT RESTING IN BED WITH EYES CLOSED. RESPIRATIONS EVEN. IV ABX INFUSIN WNL.
--- NOTE | 2021-12-15 23:55 | NUR ---
PT RESTING IN BED WITH EYES CLOSED. RESPIRATIONS EVEN. CALL LIGHT IN REACH. BED ALARM FOR SAFETY.
--- NOTE | 2021-12-16 00:25 | NUR ---
TELE LEADS OFF. IN ROOM TO REPLACE. PT INCONTINET OF URINE AND SMEAR OF STOOL. ABDOULAYE CARE DONE. CLEAN BRIEF PLACED. 2PA TO REPOSITION IN BED. WARM BLANKET PROVIDED. NO FURTHER NEEDS. BED ALARM ON.
--- NOTE | 2021-12-16 01:35 | NUR ---
IV ABX COMPLETE. PT SL AT THIS TIME. ASSISTED TO USE URINAL TO VOID 150 YELLOW URINE. ATTENDS DRY. PT STATES "I'M PRETTY COMFORTABLE." CALL LIGHT IN REACH. BED ALARM FOR SAFETY.
--- NOTE | 2021-12-16 04:13 | NUR ---
BED ALARM SOUNDING, PT WITH LEGS OVER SIDE RAILS. REPORTS NEEDING TO VOID. 2PA WITH FWW TO BS TO VOID 200 ML YELLOW URINE. GAIT WEAK. BACK TO BED, DELIA WELL. PT STATES "I FEEL PRETTY GOOD." BELIEVES HE IS IN [place]. ATTEMPTED TO REORIENT. PT DENIES PAIN OR NAUSEA. NO SOB OR CHEST PAIN. SIPS OF WATER PROVIDED. NO FURTHER NEEDS. BED ALARM ON. PT IN VIEW OF NURSES STATION.
--- NOTE | 2021-12-16 05:43 | NUR ---
VS AND I&O COMPLETE. ASSISTED PT TO REPOSITION IN BED. PT MUCH MORE CONVERSIVE THIS AM THAN LAST NOC. PT ORIENTED TO SELF. DENIES NEEDS. LAB IN ROOM FOR MORNING DRAW.
--- NOTE | 2021-12-16 07:46 | NUR ---
THIS RN TO ROOM FOR BLOOD SUGAR. PT AWAKE AND ALERT. 2 PERSON ASSIST WITH FWW UP TO CHAIR. PT ABLE TO TAKE SHUFFELING STEPS UP TO CHAIR. PT ANSWERING QUESTIONS APPROPRIATLY. LINENS CHANGED. PT REMAINS UP TO CHAIR. CHAIR ALARM ON. CALL LIGHT WIHTIN REACH.
--- NOTE | 2021-12-16 09:32 | NUR ---
Patient awake sitting up in chair watching tv, no distress. Patient incontinent of urine, brief changed. Assisted patient with drinking his ensure, pt needs encouragement and prompting. Patient confused, easily directable and pleasant with staff. Chair alarm intact. Patient close to RN station.
--- NOTE | 2021-12-16 09:41 | NUR ---
WENT TO CHECK ON PATIENT. HEAD-TO-TOE ASSESSMENT COMPLETED, MEDS ADMINISTRED PO AND IV. 2 IVs CURRENTLY WORKING - ONE FOR CONTINUOUS USE OF ABX AND THE OTHER ONE FOR EMERGENCY. NO SIGNS OF INFILTRATION, BUT BRUISED ALL OVER HIS SITE; BLOOD RETURN WNL BUT PAINFUL WITH TOUCH AND FLUSHING. PT IS SITTED ON CHAIR, COMFORTABLE WITH CALL LIGHT WITHIN REACH. ABLE TO DRINK HIS MILKSHAKE ON HIS OWN AND SLOWLY WORKING ON IT INDEPENDENTLY. BED ALARM ON, BRIEFS CHANGED. PATIENT CURRENTLY ON CONTINUOUS VANCOMYCIN AND AFTER 2H CAN TRANSITION TO CEFEPIME INFUSION. NO ADDITIONAL NEEDS AT THIS TIME.
--- NOTE | 2021-12-16 10:20 | NUR ---
Spoke with pt and his , Guera. cont. to want pt to be placed for PT/OT as he needs strengthening to return home. Pt has not been vaccinated for covid. Called and spoke with Mariely at [facility] and she states she may have a bed open. Faxed face sheet, H&P, progress notes, VS sheet, PT/OT notes.
--- NOTE | 2021-12-16 10:43 | NUR ---
CHECKED ON PT. COMFORTABLE ON CHAIR WITH BLANKETS, TV ON AND MILKSHAKE/WATER CLOSE AND CALL LIGHT WITHIN REACH. CHAIR ALARM ON FOR SAFETY. WAS JUST VISITING AND SAYING BYE, LEADING PATIENT TO GET A MORE ANXIOUS/SAD BEHAVIOR. RR INCREASED. NOTICED BP TO ALSO HAVE DECREASED SOME SINCE CHECKED 2H AGO. NO ADDITIONAL NEEDS AT THIS TIME. PT SEEMS TIRED - ENCOURAGED TO REST AND DRINK HIS FLUIDS. IN ADDITION, ENCOURAGED TO CALL THE NURSE STATION IF NEEDS ANYTHING, I.E. GO TO THE BATHROOM.
--- NOTE | 2021-12-16 12:21 | NUR ---
THIS RN TO ROOM TO ASSIST PT WITH LUNCH. PT DRINKS ~25% OF ENSURE MILKSHAKE. PT REPOSITIONED IN CHAIR TO SITTING POSITION. DR. CHIRINOS TO BEDSIDE FOR ROUNDS. PT REMAINS DISORINETED. ABLE TO ANSWER SOME QUESTIONS AND ABLE TO FOLLOW DIRECTIONS INCONSITANTLY. PT MAKING STATEMENTS THAT ARE OUT OF PLACE AND DON'T MAKE SINCE "I GOING TO JUMP OVER THERE THAT JUMMPER." PT NOW RESTING IN CHAIR WITH EYES CLOSED. CHAIR ALARM ON. CALL LIGHT WITHIN REACH. PTS PRIMARY RN UPDATED.
--- NOTE | 2021-12-16 14:07 | NUR ---
PT SITTING IN CHAIR, SEEMED TO BE TRYING TO FINISH A DRINK. PT WAS SLIDING DOWN IN CHAIR, INFORMED TYE WELLS. SHE WILL CARE FOR HIM. PTS' TRY TO COMMUNICATE AND RESPOND WAS VERY CONFUSING AND GARBLED. GAVE ENCOURAGEMENT, WILL FOLLOW
--- NOTE | 2021-12-16 15:29 | NUR ---
Patient resting in bed, eyes closed, respirations even and non labored. Patient has no distress. Bed alarm intact. Personal supplies and call light within reach. No needs. at this time.
--- NOTE | 2021-12-16 16:00 | NUR ---
NUTRITION CONSULT RECEIVED BUT NO REASON TO WHY. PATIENT IS COVID + WITH DEMENTIA. HE IS ON A 60 GM CONSISTENT CARB DIET. HE IS NOT EATING MUCH FOOD BUT DIETARY IS SENDING ENSURE. PATIENT HAS AN ALLERGY TO CANOLA OIL AND ASPARTAME. ENSURES HAVE SOME CANOLA OIL BUT THE DOCUMENTED REACTION IS NASAL CONGESTION. NURSING IS AWARE. CONTINUE ORAL SUPPLEMENTS, SOME WITH ADDED BENECALORIE TO PROVIDE MORE CALORIES WITHOUT CARBS.
--- NOTE | 2021-12-16 18:17 | NUR ---
Patient had a twenty beat run of v-tach per ICU report. Patient repositioned at time of v-tach run. Patient asymptomatic, denies chest pain and or shortness of breath. Vital signs; BP-101/61, M-69, P-69. Dr. Weiner notified.
--- NOTE | 2021-12-16 18:44 | NUR ---
Tylenol 500mg po admin for reported bladder pain.
--- NOTE | 2021-12-16 19:36 | NUR ---
REPORT RECEIVED FROM DAY SHIFT RN. PT LYING IN BED RESTING WITH EYES CLOSED. RESPIRATIONS EVEN. IV MAG INFUSING WNL. TELE IN PLACE. AFIB. HR 80'S. BED ALARM ON. PT IN VIEW OF NURSES STATION. WHITE BOARD UPDATED.
--- NOTE | 2021-12-16 20:51 | NUR ---
EVENING ASSESSMENT COMPLETE. SCHEDULED MEDS ADMINSITERED PER EMAR. HOB ELEVATED. NO SWALLOWING ISSUES NOTED. IV ABX INFUSING WNL. ATTENDS DRY. 2PA TO REPOSITION IN BED. PT DROWSY, AWAKENS EASILY. RESPONDS YES/NO TO CERTAIN QUESTIONS AND DOES NOT RESPOND TO OTHERS. DOES DENY CHEST PAIN, SOB, OR GENERALIZED PAIN. TELE #8. AFIB. HR 60'S-80'S. SpO2 93% ON RA. BED ALARM IN PLACE. PT IN VIEW OF NURSES STATION.
--- NOTE | 2021-12-16 21:30 | NUR ---
IN ROOM TO HANG IV ABX. INFUSING WNL. PT RESTING WITH EYES CLOSED. RESPIRATIONS EVEN.
--- NOTE | 2021-12-16 23:20 | NUR ---
IV ABX INFUSING PER ORDER. PT IN BED WITH GOWN AND TELE LEADS REMOVED. INCONTINENT OF URINE. ABDOULAYE CARE DONE AND CLEAN BRIEF PLACED. 2PA TO REPOSITION IN BED. SIPS OF WATER GIVEN. BED ALARM ON.
--- NOTE | 2021-12-17 00:07 | NUR ---
IV ABX INFUSING WNL. PT INCONTINENT OF URINE. ABDOULAYE CARE DONE, CLEAN ATTENDS PLACED. WARM BLANKET PROVIDED. ASSISTED WITH SIPS OF WATER. ORAL CARE DONE. 2PA TO REPOSITION IN BED. BED ALARM FOR SAFETY.
--- NOTE | 2021-12-17 02:15 | NUR ---
DR. CHIRINOS NOTIFIED OF BLOOD PRESSURE 92/56. TELEPHONE ORDER RECEIVED TO HOLD 0200 DOSE OF 12.5 MG METOPROLOL. ORDER VERIFIED WITH READ BACK METHOD.
--- NOTE | 2021-12-17 04:20 | NUR ---
BED ALARM SOUNDING. PT WITH LEGS OVER SIDE RAILS. STATES "I NEED TO GET DOWN TO THE RIVER." ATTEMPTED TO REORIENT. PT ORIENTED TO SELF. PT INCONTINENT OF SMALL AMOUNT OF URINE. ABDOULAYE CARE DONE AND CLEAN BRIEF PLACED. SIPS OF WATER PROVIDED. BED ALARM ON.
--- NOTE | 2021-12-17 06:12 | NUR ---
BED ALARM SOUNDING. PT UP TO BSC WITH 2PA AND FWW TO VOID AND HAVE LARGE LIQUID BM. ABDOULAYE CARE DONE BY STAFF. BACK TO BED, DELIA FAIR. GAIT STEADY BUT PT REQUIRES CONSTANT QUEING. PT DOES REPORT FEELING "A LITTLE" DIZZY WITH AMBULATION. DENIES CHEST PAIN. VS AND I&O COMPLETE. WARM BLANKET PROVIDED. ASSISTED WITH SIPS OF WATER. PT RESTING WITH EYES CLOSED AT THIS TIME. BED ALARM FOR SAFETY.
--- NOTE | 2021-12-17 07:15 | NUR ---
report recieved from accountant clerk RN, pt awake in bed, RA, bed alarm on no needd at the moment.
--- NOTE | 2021-12-17 07:33 | NUR ---
CHECKRD ON PATIENT FOR BEGINNING OF SHIFT. PATIENT IS ALERT, ORIENTED TO SELF AND ABLE TO ANSWER MOST QUESTIONS. SPEECH IS FRAGMENTED, THERE IS OCCASIONAL INCOHERENCE BUT PATIENT'S SPEECH IS OVERALL CLEAR. WHEN ASKED, ABLE TO REMEMBER SEVERAL ASPECTS OF HIS LIFETIME. AFFECT IS GOOD, SMILES HERE AND THERE. STATES HE IS A LITTLE NAUSEOUS AND COULD EAT SOON, BUT HE IS TIRED AND NEEDS TO REST. BED ALARM ON, CALL WITHIN REACH. NO ADDITIONAL NEEDS AT THIS TIME/
--- NOTE | 2021-12-17 08:00 | NUR ---
rn talked with pharmacist roney membreno pt vancomycin trough, will bring up to dr pickens in morning meeting shameka needing a lab draw.
--- NOTE | 2021-12-17 08:26 | NUR ---
RN IN ROOM TO DO MORNING ASSESSMENT AND ADMINISTER MEDICATIONS, AWAKE AND ALERT, ABLE TO TELL ME NAME AND , IV ON L AC PAINFULL TO FLUSH, IV REMOVED AND NEW ONE PLACED ON L AC 20G , PT TOLERATED WELL, PT WANTING TO GET UP TO THE BATHROOM ASSISTED UP TO COMMODE AND, THEN TO CHAIR, CHAIR ALARM PLACED, EDUCATED ON NO GETTING OUT OF CHAIR WITHIN OUT HELP
--- NOTE | 2021-12-17 10:15 | NUR ---
RN ROUNDING PT SITTING UP IN CHAIR, DENIES ANY NEEDS AT THE MOMENT
--- NOTE | 2021-12-17 10:26 | NUR ---
RECVD CALL FROM SAMRA AT [facility] INQUIRING IF PATIENT IS STILL APPROPRIATE FOR PLACEMENT WITH PT/OT LAST CHART NOTES SAY PATIENT TO TRANSITION TO COMFORT CARE. ADVISED SAMRA OF PATIENT IMPROVEMENT AND CONTINUED NEED FOR PLACEMENT. UPDATED PROGRESS NOTE AND PT NOTES FAXED TO [facility] FOR FURTHER REVIEW.
--- NOTE | 2021-12-17 11:41 | NUR ---
WENT TO CHECK ON PATIENT, MOVED HIM TO BED AND CHECKED VITALS. BLOOD PRESSURE A LITTLE ON THE LOWER SIDE. NO NEED TO CHANGE HIS BRIEFS OR TAKE HIM TO THE BATHROOM AT THIS TIME. ENCOURAGED PT TO DRINK HIS FLUIDS. AROUND 11:20AM, MAXIPIME WAS PAUSED AND, AFTER FLUSHED, VANCOMYCIN WAS STARTED ON IV SITE (R AC). NO ADDITIONAL NEEDS AT THIS TIME.
--- NOTE | 2021-12-17 11:59 | NUR ---
TELE MONITOR REMOVED OFF PT PER DR CHIRINOS ORDERS
--- NOTE | 2021-12-17 11:59 | NUR ---
WENT TO CHECK PATIENT'S BLOOD SUGAR. FOOD WILL DELIVER SOON AND RN WILL ADMINISTER INSULIN. PATIENT POSITIONED, TELE STICKERS/MACHINE REMOVED (PER PROVIDER'S ORDERS) AND WATER REFILLED. NO ADDITIONAL NEEDS AT THIS TIME. CALL LIGHT WITHIN REACH.
--- NOTE | 2021-12-17 12:38 | NUR ---
rn in room to do lunch time insulin, repostitioned up in bed sitting up offered protien.
--- NOTE | 2021-12-17 14:22 | NUR ---
PT GIVEN 2 PM MEDS MEETING PARAMETERS. CHANGED HIS BRIEFS, INCONTINENT WITH URINE X1. ABDOULAYE CARE COMPLETEED. VANCOMYCIN HAD FINISHED. FLUSHED WITH NORMAL SALINE AND CEFEPIME RESTARTED. SITE WNL, NO S/S OF INFECTION, PHLEBITIS OR INFILTRATION. BLOOD RETURN EXPECTED. PATIENT COMFORTABLE IN BED. DENIES PAIN OR DISCOMFORT. ASKING ABOUT NAIN () - REASSUREED THAT SHE WILL COME VISIT, BUT SHE HAS NOT CAME YET TODAY. PT OKAY WITH THAT INFORMATION.
--- NOTE | 2021-12-17 15:00 | NUR ---
rn in room do do afternoon assesment pt awake, had an incontinence episode, soaked the bed,pt agreed to get up to the chair to let nurse change out bedding, [facility] done new sheets placed on bed.
--- NOTE | 2021-12-17 15:42 | NUR ---
RECVD CALL FROM CELY AT [facility]. PER SAMRA THEIR DNS HAS REVIEWED THE PATIENT CHART AND THEY HAVE "CONCERNS WITH PATIENT LOW BP AND LOW FLUID INTAKE." SAMRA STATES THAT IF PATIENT REMAINS STABLE OVER THE WEEKEND TO FAX CLINICALS FOR FURTHER REVIEW ON MONDAY. ADVISED CELY THIS RN TO FAX OVER CLINICALS ON MONDAY.
--- NOTE | 2021-12-17 18:00 | NUR ---
PT ASSISTED BACK TO BED INCONTINCE EPISODE NEW ATTENDS PROVIDED, BED ALARM TURNED ON DENIES ANY NEEDS
--- NOTE | 2021-12-17 19:53 | NUR ---
RECEIVED REPORT FROM DAY TYE VAUGHAN. PT IN BED, BED ALARM ON FOR PT SAFETY.
--- NOTE | 2021-12-17 21:05 | NUR ---
IN TO GET VS, ACCUCHECK DONE (see eMAR), PT INCONT OF URINE, CHANGED WITH RN, NO FURTHER NEEDS
--- NOTE | 2021-12-17 22:03 | NUR ---
ASSESSMENT COMPLETE. PT ORIENTATED TO SELF, , AND PRESIDENT OF [facility]. UNABLE TO/ DIDN'T/COULDN'T SAY MONTH, YEAR OR PLACE. MOSTLY SLEEPY LIKE, EYES CLOSED, RESP EVEN AND UNLABORED. REFUSED TO ALLOW THIS RN TO REMOVE TOP DENTURES BRUSH AND RETURN. SAID NO. DENIES PAIN. WAS INCONT. URINE, ATTENDS SOAKED, ALLEYVN FALLING OFF WOUND. CLEANED, REPLACED ALLEYVN. WOUND WITHOUT DRAINAGE, EDGES WOUND WELL APPROXIMATED, WOUND BED WITH HEALING TISSUE. PAINFUL TO TOUCH PT MOVED WHEN WOUND EDGES TOUCHED. HANDS COOL TO TOUCH. POSITIONED PT TO HIS RIGHT SIDE WITH PILLOW SUPPORTS.
--- NOTE | 2021-12-17 22:50 | NUR ---
checked on pt. abx continues to infuse per order, pt had moved covers off chest, eyes closed, resp even and unlabored. bed alarm continues on.
--- NOTE | 2021-12-18 00:38 | NUR ---
IV PUMP ALARMING, DISTAL OCCLUSION, ADRESSED, NOW INFUSING. PT MOVING LEGS AROUND IN BED, UNCOVERED SELF, COVERED CHECK, LEFT LEGS LANIE. RESP EVEN AND UNLABORED. NO RESPONSE WHEN ASKED IF HE WAS IN PAIN, OR NEEDED ANYTHING.
--- NOTE | 2021-12-18 02:15 | NUR ---
VS COMPLETE, MED PER MARS ADMINISTERED. PT MOSTLY WITH EYES CLOSED, ABX IV COMPLETE, SL. OPENS EYES, REMOVED TOP DENTURE DUE TO NEARLY OUT OF MOUTH. PT HAS BEEN MOVING AROUND IN BED SINCE 37, ROOM TEMP INCREASED DUE TO COOLNESS IN ROOM, AND PT FREQUENTLY UNCOVERING SELF.
--- NOTE | 2021-12-18 02:40 | NUR ---
IN WITH RN TO ASSIST WITH REPOSITIONING PT, NEW ATTENDS IN PLACE DUE TO PT INCONT OF URINE, NO FURTHER NEEDS AT THIS TIME, BED ALARM IN PLACE
--- NOTE | 2021-12-18 04:04 | NUR ---
PT LAYING ON LEFT SIDE, REMAINED COVERED UP, RESPIRATIONS EVEN AND UNLABORED.
--- NOTE | 2021-12-18 05:30 | NUR ---
IN TO GET VITALS, PT IS INCONT OF URINE, WITH RN, PT CLEANED UP, BOOSTED IN BED, BED ALARM IN PLACE NO FURTHER NEEDS AT THIS TIME
--- NOTE | 2021-12-18 05:58 | NUR ---
PT REMAINED IN BED THIS SHIFT, ATTEMPT TO TURN, BUT PT MOVES SELF, FREQUENTLY LAYS ON SIDES. WATER OFFERED AND FEW SIPS, INCONT OF URINE, NO BM'S. NONVERBAL EXCEPT IF ASKING HIM A QUESTION, MOSTLY WITH EYES CLOSED. ABX IV, RA, SL AFTER ABX. DID NOT USE CALL LIGHT, DID NOT ATTEMPT TO GET OUT OF BED, CALL LIGHT ON FOR SAFETY. DRESSING ON COCCYX CHANGED, NO REDNESS, CLEAN AND DRY, EDGES APPROXIMATED, WITH GRANULATING TISSUE. KNEW WHO WAS THE PRESIDENT, AND , BUT DIDN'T KNOW DATE, MONTH OR YEAR, OR COULDN'T SAY IT. BED ALARM ON FOR SAFETY
--- NOTE | 2021-12-18 08:40 | NUR ---
REPORT RECEIVED FROM NIGHT RN AND PT. CARE RESUMED. PT. IS DROWSY BUT AWAKENS TO VOICE. NOT ORIENTED AT ALL. BEDDING WET AND CHANGED. PT. ATTENDS SATURATED AND CHANGED. ASSISTED WITH REPOSITIONING WITH PILLOWS. PT. ABLE TO EAT A FEW BITES OF YOGURT AND DRINK WATER WITHOUT DIFFICULTY. IV WNL AND FLUSHES. MEDS GIVEN AND BED ALARM ON WITH CURTAIN OPEN IN VIEW OF NURSES STATION.
--- NOTE | 2021-12-18 13:45 | NUR ---
PT. ATTENDS WAS SATURATED WITH URINE. CHANGED AND CLEANED. PT. ASSISTED BY 2 STAFF AND FWW FROM THE BED TO THE CHAIR. TOLERATED WELL. ASSISTED WITH DRINKING WATER. LEFT RESTING WITH CHAIR ALARM ON AND POSITIONED WITH PILLOWS.
--- NOTE | 2021-12-18 15:56 | NUR ---
PT. FOUND SLIDING DOWN IN THE CHAIR. PT. ASSISTED BY 2 STAFF AMBULATING WITH FWW TO THE BED. TOLERATED WELL. ASSISTED WITH DRINKING WATER. LEFT RESTING WITH BED ALARM ON.
--- NOTE | 2021-12-18 17:30 | NUR ---
PT. ASSISTED WITH EATING DINNER AND TAKING PO MEDS. HE REFUSES FOOD AND DRINK AFTER A FEW BITES. REPOSITIONED. LEFT RESTING WITH ALARM ON.
--- NOTE | 2021-12-18 19:55 | NUR ---
RECEIVED REPORT FROM DAY SHIFT RN. PATIENT IS RESTING IN BED. NO NEEDS NOTED. CALL LIGHT IN REACH. BED ALARM ON FOR SAFETY.
--- NOTE | 2021-12-18 20:30 | NUR ---
PATIENT ASSESMENT COMPLETED. PATIENT INCONTINENT OF URINE, ATTEND CHANGED, AND ABDOULAYE CARE COMPLETED. VITALS TAKEN AND RECORDED. INTAKE AND OUTPUT RECORDED. PATIENT REPOSITIONED IN BED. PATIENT PROVIDED SIPS OF WATER. PATIENTS IV FLUSED AND SL PER ORDER. PATIENT DENIES ANY NEEDS. CALL LIGHT IN REACH. BED ALARM ON FOR SAFETY.
--- NOTE | 2021-12-18 23:01 | NUR ---
PATIENT REPOSITIONED IN BED. ATTEND IS DRY AT THIS TIME. PATIENTS CALL LIGHT IN REACH. BED ALARM ON FOR SAFETY.
--- NOTE | 2021-12-19 00:30 | NUR ---
PATIENT INCONTINENT OF URINE. PATIENTS BEDDING AND ATTEND CHANGED. ABDOULAYE CARE COMPLETED. BARRIER CREAM APPLIED. PATIENT PROVIDED SIPS OF WATER. CALL LIGHT IN REACH. BED ALARM ON FOR SAFETY.
--- NOTE | 2021-12-19 02:51 | NUR ---
PATIENTS VITALS TAKEN AND RECORDED. PAITENTS ATTEND CHANGED AND ABDOULAYE CARE COMPLETED. PATIENTS SCHEDULED MEDICATIONS GIVEN PER ORDER. PATIENT PROVIDED SIPS OF WATER. NO NEEDS NOTED. CALL LIGHT IN REACH. BED ALARM ON FOR SAFETY.
--- NOTE | 2021-12-19 05:13 | NUR ---
PATIENTS BLOOD TAKEN AND SENT TO THE LAB. PATIENTS VITALS TAKEN AND RECORDED. ATTEND CHANGED AND ABDOULAYE CARE COMPLETED. PATIENTS INTAKE AND OUTPUT RECORDED. PATIENTS IV FLUSHED AND SL PER ORDER. PATIENT PROVIDED WITH SIPS OF WATER. PATIENT REPOSITIONED IN BED. PATIENTS CALL LIGHT IN REACH. BED ALARM ON FOR SAFETY.
--- NOTE | 2021-12-19 05:14 | NUR ---
PATIENT RESTED ON AND OFF THROUGHOUT THE SHIFT. PATIENT IS ON AN ADA DIET, DECREASED APPETITED, FEEDER, AND ENCOURAGE PO INTAKE. PATIENT IS ON RA. INCONTINENT AT BASELINE. PATIENT IS A 2PA W/FWW AND WORKLING WITH PT. PATIENT IS SL AND IV FLUSHES WELL. BS CHECKS. BED ALARM ON FOR SAFETY. ALLEVYN ON COCYX. PATIENT ONLY ORIENTED TO SELF AT TIMES.
--- NOTE | 2021-12-19 08:45 | NUR ---
REPORT RECEIVED FROM NIGHT RN AND PT. CARE RESUMED. PT. PT. IS DROWSY AND AWAKENS TO VOICE. NOT ORIENTED. HE REFUSES TO TAKE MEDICATIONS AT THIS TIME AND CONTINUES TO WAVE HIS HAND AND ROLL OVER TO SLEEP. IV SITE WNL AND FLUSHES. ASSISTED WITH REPOSITIONING AND BROUGHT WARM BLANKETS. BED ALARM ON.
--- NOTE | 2021-12-19 09:15 | NUR ---
PT. MORE AWAKE AND ASSISTED WITH SITTING UP TO TAKE MEDS. PT. ABLE TO TAKE PO MEDS WITH PUDDING AND IS DRINKING ENSURE. LEFT RESTING WITH ALARM ON AND CURTAIN OPEN.
--- NOTE | 2021-12-19 10:45 | NUR ---
PATIENT ATTENDS CHANGED BY LESLEE SARAH.
--- NOTE | 2021-12-19 19:31 | NUR ---
RECEIVED REPORT FROM DAY SHIFT RN. PATIENT IS RESTING IN BED. NO NEEDS NOTED. CALL LIGHT IN REACH. BED ALARM ON FOR SAFETY.
--- NOTE | 2021-12-19 21:30 | NUR ---
ASSISTED PRIMARY RN JERAD. V/S AND I&O'S TAKEN AND CHARTED. CHANGED PATIENT'S INCONTINENT ATTENDS. PATIENT REPOSITIONED. BED ALARM ON FOR SAFETY.
--- NOTE | 2021-12-19 22:16 | NUR ---
PATIENT ASSESMENT COMPLETED. VITALS TAKEN AND RECORDED. ATTEND CHANGED AND ABDOULAYE CARE COMPLETED. INTAKE AND OUTPUT RECORDED. SCHEDULED MEDICATIONS GIVEN PER ORDER. PATIENT REPOSITIONED IN BED. PILLS GIVEN IN APPLESAUCE NO S/SX OF ASPIRATION. PATIENT TOLERATED ACTIVITY WELL. PATIENTS IV FLUSHED AND SL PER ORDER. PATIENTS BED ALARM ON FOR SAFETY. SIPS OF WATER PROVIDED. CALL LIGHT IN REACH.
--- NOTE | 2021-12-19 23:50 | NUR ---
PATIENT IS RESTING IN BED WITH EYES CLOSED, RR 16. PATIENT IS FIDGETING IN BED. CALL LIGHT IN REACH. BED ALARM ON FOR SAFETY.
--- NOTE | 2021-12-20 00:35 | NUR ---
THIS EXTERN AND PRIMARY RN JERAD CHANGED PATIENT'S INCONTINENT ATTENDS OF URINE AND BOWEL MOVEMENT. PATIENT REPOSITONED. BED ALARM ON FOR SAFETY.
--- NOTE | 2021-12-20 00:49 | NUR ---
PATIENTS INCONT OF URINE AND STOOL. ATTEND CHANGED AND ABDOULAYE CARE COMPLETED. PATIENT REPOSITIONED IN BED. SIPS OF WATER PROVIDED. NO NEEDS NOTED. CALL LIGHT IN REACH. BED ALARM ON FOR SAFETY.
--- NOTE | 2021-12-20 02:29 | NUR ---
PATIENT IS RESTING IN BED WITH EYES CLOSED, RR 16. CALL LIGHT IN REACH. BED ALARM ON FOR SAFETY.
--- NOTE | 2021-12-20 04:29 | NUR ---
PATIENT IS RESTING IN BED WITH EYES CLOSED, RR 17. CALL LIGHT IN REACH.
--- NOTE | 2021-12-20 05:42 | NUR ---
PATIENTS ATTEND CHANGED, PATIENT INCONT OF URINE. PATIENT REPOSITIONED IN BED. VITALS TAKEN AND RECORDED. INTAKE AND OUPUT RECORDED. PATIENT PROVIDED SPS OF WATER. NO FURTHER NEEDS NOTED. CALL LIGHT IN REACH. BED ALARM ON FOR SAFETY.
--- NOTE | 2021-12-20 07:19 | NUR ---
WEEKEND PROGRESS AND PT NOTE FAXED TO [facility] FOR REVIEW.
--- NOTE | 2021-12-20 07:46 | NUR ---
THIS RN RECEIVED REPORT FROM JERAD GAMBLE. PT APPEARS TO BE RESTING WITH RESPIRATIONS NOTED. BED ALARM ON
--- NOTE | 2021-12-20 08:30 | NUR ---
THIS RN IN PTS ROOM TO GIVE PT MORNING MEDS. PT VERY DROWSY THIS AM BUT WAS ABLE TO BE ENCOURAGED TO TAKE PILLS WITH APPLESAUCE. PT ACTS THAT HE IS NOT WANT ANYTHING MORE THAN 3 SPOONFULLS OF APPLESAUCE
--- NOTE | 2021-12-20 09:12 | NUR ---
PATIENT HAD INCONT. BM AND VOID. ABDOULAYE CARE DONE. NEW ATTENDS IN PLACE. PATOENT REPOSITIONED. VITALS AND I&O'S CHARTED. CALL LIGHT IN REACH. BED ALARM ON. NO FURTHER NEEDS AT THIS TIME.
--- NOTE | 2021-12-20 10:00 | NUR ---
SUSU RN AND ENRIQUETA RN IN ROOM TO CHANGE PT AGAIN DUE TO INCONTINENT BM
--- NOTE | 2021-12-20 13:00 | NUR ---
THIS RN IN PTS ROOM TO GIVE INSULIN PT TOLERATED WELL AND NOT INTERESTED IN FOOD AND APPEARS VERY DROWSY TODAY
--- NOTE | 2021-12-20 13:31 | NUR ---
SPOKE WITH MARY WATER SUPERINTENDENT AT [facility] TO CHECK ON ADMISSION STATUS. PER MARY HE WILL SPEAK WITH THE DNS AND CALL BACK WITH A DETERMINATION.
--- NOTE | 2021-12-20 14:41 | NUR ---
PATIENT HAD INCONT. VOID. ABDOULAYE CARE DONE. NEW ATTENDS IN PLACE. VITALS AND I&O'S CHARTED. PATIENT REPOSITIONED ONTO RIGHT SIDE. CALL LIGHT IN REACH. NO FURTHER NEEDS AT THIS TIME. BED ALARM ON.
--- NOTE | 2021-12-20 16:04 | NUR ---
SPOKE TO JORDANA GARCIA AT [facility], PATIENT HAS BEEN ACCEPTED FOR PLACEMENT. [facility] REQUEST TRANSFER OF PATIENT TOMORROW 12/21/21.
--- NOTE | 2021-12-20 16:45 | NUR ---
SPOKE WITH PATIENTS AYE TO NOTIFY THAT PATIENT WILL BE ADMITTED TO [facility] TOMORROW. PATIENT STATES SHE WOULD LIKE TO HAVE PATIENT TRANSPORTED BY [facility] SHE ONLY HAS A PICKUP AND IS UNSURE IF THE PATIENT WILL BE ABLE TO GET IN. I ADVISED NAIN THAT WE WILL CONTACT HER TOMORROW WITH A DISCHARGE PLAN AND TIME.
[2021-12-20] MEDS ORDERED: DIGITEK125 MCG PO (17:53)
[2021-12-20] MEDS ORDERED: TORSEMIDE5 MG PO (17:54)
--- NOTE | 2021-12-20 18:00 | NUR ---
THIS RN PROVIDED PT WITH EVENING MEDS. PT NOT INTERESTED IN FOOD, MEDS GIVEN WITH APPLESAUCE
--- NOTE | 2021-12-20 18:08 | NUR ---
PATIENT HAD INCONT VOID. ABDOULAYE CARE DONE. NEW ATTENDS IN PLACE. PATIENT REPOSITIONED. VITALS AND I&O'S CHARTED. BED ALARM ON. CALL LIGHT IN REACH. NO FURTHER NEEDS AT THIS TIME.
--- NOTE | 2021-12-20 19:33 | NUR ---
RECEIVED REPORT FROM DAY SHIFT RN. PATIENT IS RESTING IN BED WITH EYES CLOSED, RR 16. CALL LIGHT IN REACH. BED ALARM ON FOR SAFETY.
--- NOTE | 2021-12-20 19:50 | NUR ---
ASSISTED PRIMARY RN JERAD CHANGED PATIENT'S INCONTINENT ATTENDS. PLACED FRESH DRAW SHEETS, WHITE CHUX AND ATTENDS. PATIENT REPOSITIONED. BED ALARM ON FOR SAFETY.
--- NOTE | 2021-12-20 20:07 | NUR ---
PATIENT ASSESMENT COMPLETED. PATIENTS ATTEND CHANGED AND ABDOULAYE CARE COMPLETED. VITALS TAKEN AND RECORDED. INTAKE AND OUTPUT RECORDED. PATIENTS GIVEN SHCEDULED MEDICATIONS GIVEN PER ORDER. PILLS IN APPLESAUCE NO S/SX OF ASPIRATION. PATIENTS IV FLUSHES WELL AND IS SL. PATIENT DOES NOT RESPOND TO QUESTIONING AND APPEARS WITHDRAWN. PATIENT REPOSITIONED. NO NEEDS NOTED. CALL LIGHT IN REACH. BED ALARM ON FOR SAFETY.
--- NOTE | 2021-12-20 22:23 | NUR ---
PATIENTS ATTEDN DRY AT THIS TIME. PATIENT REPOSITIONED. PATIENTS BED ALARM ON FOR SAFETY. CALL LIGHT IN REACH.
--- NOTE | 2021-12-20 23:42 | NUR ---
PATIENT IS MOVING LEG AROUND IN BED WITH EYES CLOSED, RR 16. CALL LIGHT IN REACH. BED ALARM ON FOR SAFETY.
--- NOTE | 2021-12-21 00:41 | NUR ---
PATIENT INCONT OF URINE ATTEND CAHNGED. PATIENT REPOSITIONED. CALL LIGHT IN REACH. BED ALARM ON FOR SAFETY.
--- NOTE | 2021-12-21 02:03 | NUR ---
PATIENT IS RESTING IN BED WITH EYES CLOSED, RR 16. CALL LIGHT IN REACH. BED ALARM ON FOR SAFETY.
--- NOTE | 2021-12-21 02:38 | NUR ---
PATIENT INCONT OF URINE. PATIENTS ATTEND CHANGED AND ABDOULAYE CARE COMPLETED. PATIENT PROVIDED SIPS OF WATER. PATIENT REPOSITIONED IN BED. NO FURTHER NEEDS NOTED. CALL LIGHT IN REACH. BED ALARM ON FOR SAFETY.
--- NOTE | 2021-12-21 05:24 | NUR ---
ATIENT RESTED ON AND OFF THROUGHOUT THE SHIFT. PATIENT IS ON AN ADA DIET, ECREASED APPETITED, FEEDER, AND ENCOURAGE PO INTAKE. PATIENT IS ON RA. INCONTINENT AT BASELINE. PATIENT IS A 2PA W/FWW AND WORKLING WITH PT. PATIENT IS SL AND IV FLUSHES WELL. BS CHECKS. BED ALARM ON FOR SAFETY. ALLEVYN ON COCYX. PATIENT ONLY ORIENTED TO SELF AT TIMES. INCONTINENT AT BASELINE. BM X1 THIS SHIFT.
--- NOTE | 2021-12-21 05:25 | NUR ---
PATIENT INCONT OF STOOL AND URINE. PATIENTS ATTEND CHANGED AND ABDOULAYE CARE COMPELTED. SIPS OF WATER PROVIDED. PATIENT REPOSITIONED IN BED. PATIENTS VITALS TAKEN AND RECORDED. INTAKE AND OUTPUT RECORDED. NO NEEDS NOTED. CALL LIGHT IN REACH. BED ALARM ON FOR SAFETY.
--- NOTE | 2021-12-21 07:15 | NUR ---
Report received from Bimal GAMBLE. Pt resting in bed with eyes closed, turned to R lateral side positioned with pillows. Pt has no needs identified at this time. Will continue plan of care.
--- NOTE | 2021-12-21 09:00 | NUR ---
Attempted to administer medications. Pt is unable to swallow, attempted to give applesauce and patient let it sit on his tongue but would not swallow despite verbal and physical cueing. Removed applesauce with spoon from mouth. Pt repositioned in bed, assessment complete. Pt does not verbally respond, has purposeful movement in extremities when verballly cued. Pupils examined and equal and reactive to light. pt unable to keep R eye open. Pt noted to be clenching fists tight, especially L hand, rolled wash cloths provided to avoid fingernail indents into hand. Pt tolerates this well. Skin examined and WNL. Pt has intact CMS. Discussed POC and pt condition with Dr Ellison and Lianne albrecht RN
--- NOTE | 2021-12-21 09:22 | NUR ---
PT SITTING UP IN BED WITH EYES CLOSED AND WILL NOT ANSWER QUESTIONS. CALL LIGHT IN REACH. TYE RUSSELL NOTIFIED. NO FURTHER NEEDS AT THIS TIME.
--- NOTE | 2021-12-21 10:45 | NUR ---
Per Dr. Ellison pt's CR increased. No dc today. I had contacted T and he has been accepted. Notified he will not dc today. Possible tomorrow.
--- NOTE | 2021-12-21 12:23 | NUR ---
SS insulin provided and IVF infusing WNL
--- NOTE | 2021-12-21 14:31 | NUR ---
PATIENT SITTING IN BED AT THIS TIME. PATIENT REPOSITIONED WITH PILLOWS UNDER RIGHT SIDE. ATTENDS CHECKED AND CLEAN. VITALS AND I&O'S CHARTED. CALL LIGHT IN REACH. NO FURTHER NEEDS AT THIS TIME.
--- NOTE | 2021-12-21 18:20 | NUR ---
Pt rectal temperature 99.7, facial expression occasional grimace/frown, tense with movement and rigid. Tylenol suppository administered. Pt has incontinent BM, dry attends in place. Repositioned in bed with pillows. VSS. I/Os charted.
--- NOTE | 2021-12-21 19:45 | NUR ---
RECEIVED REPORT FROM DAY SHIFT RN. PATIENT IS RESTING IN BED. FAMILY AND MD PRESENT AT THE BEDSIDE.
--- NOTE | 2021-12-21 21:41 | NUR ---
PATIENT ASSESMENT COMPLETED. PATIENTS ATTEND CHANGED AND URINE IS DARK IN COLOR. PATIENT REPOSITIONED IN BED. PATIENTS SCHEDULED MEDICATIONS GIVEN PER ORDER. ORAL CARE COMPLETED. PATIENTS EYES ARE OPEN, BUT DOES NOT RESPOND TO QUESTIONING. PATIENTS VITALS TAKEN AND RECORDED. INTAKE AND OUTPUT RECORDED. ATTEMPTED TO SPOON WATER INTO PATIENTS MOUTH, PATIENT LET IT DRIBBLE BACK OUT. WHEN SECOND ATTEMPT WAS MADE PATIENT CLOSED MOUTH TIGHTYL AND WOULD NOT OPEN IT. PATIENT IS ON RA. HEEL PROTECTORS IN PLACE. PATIENTS CALL LIGHT IN REACH. BED ALARM ON FOR SAFETY.
--- NOTE | 2021-12-21 23:36 | NUR ---
PATIENT REPOSITIONED IN BED. ORAL CARE COMPLETED. IV INFUSING PER ORDER. PATIENT TOLERATED ACTIVITY WELL. ATTEND IS DRY AT THIS TIME. PATIENT DENIES ANY NEEDS. CALL LIGHT IN REACH. BED ALARM ON FOR SAFETY.
--- NOTE | 2021-12-22 00:25 | NUR ---
PATIENTS ATTEND IS DRY AT THIS TIME. PATIENT GIVEN VA TYLENOL PER ORDER FOR NONVERBAL QUES OF DISCOMFORT. ORAL CARE COMPLETED. IV INFUSING PER ORDER. BED ALARM ON FOR SAFETY. CALL LIGHT IN REACH.
--- NOTE | 2021-12-22 01:58 | NUR ---
PATIENT HAD SMALL INCONT. ATTEDN CHANGED. PATIENT REPOSITIONED IN BED. IV NO LONGER PATENT. NEW IV STARTED. PATIENT TOLERATED ACTIVITY WELL. IV INFUSING PER ORDER. NO FURTHER NEEDS NOTED. CALL LIGHT IN REACH. BED ALARM ON FOR SAFETY. ORAL CARE COMPLETED.
--- NOTE | 2021-12-22 03:39 | NUR ---
PATIENT ATTEDN CHANGED. PATIENT REPOSITIONED. ORAL CARE COMPLETED. IV INFUSING PER ORDER. BED ALARM ON FOR SAFETY. CALL LIGHT IN REACH.
--- NOTE | 2021-12-22 05:47 | NUR ---
PATIENT RESTLESS THROUGHOUT THE SHIFT. PATIENT IS ON AN ADA DIET, NO ORAL INTAKE, FEEDER, AND ENCOURAGE PO INTAKE. PATIENT IS ON RA. ORAL CARE PRN. INCONTINENT AT BASELINE. PATIENT IS A 2PA W/FWW AND WORKLING WITH PT. PATIENT IV FLUIDS INFUSING. BS CHECKS. BED ALARM ON FOR SAFETY. ALLEVYN ON COCYX. PATIENT ONLY ORIENTED TO SELF AT TIMES.. BM X1 THIS SHIFT. PATIENT UNABLE TO TAKE PO MEDICATION AT THIS TIME.
--- NOTE | 2021-12-22 06:00 | NUR ---
PATIENTS ATTEND CHANGE, SMALL AMOUNT OF URINE NOTED. PATIENTS IV INFUSING PER ORDER. VITALS TAKEN AND RECORDED. INTAKE AND OUTPUT RECORDED. ORAL CARE COMPLETED. PATIENT REPOSITIONED IN BED. CALL LIGHT IN REACH. BED ALARM ON FOR SAFETY.
--- NOTE | 2021-12-22 07:05 | NUR ---
Report received from Bimal GAMBLE. Pt resting in bed, even and unlabored RR. Will continue plan of care.
--- NOTE | 2021-12-22 08:30 | NUR ---
Pt unable to swallow PO meds, not given. IVF infusing and IV meds administered. Rectal temp 100.1, tylenol suppository administered. updated on patient condition. Pt repositioned.
--- NOTE | 2021-12-22 09:16 | NUR ---
Placed 20g in lfa PT TOLERATED WELL.
--- NOTE | 2021-12-22 09:32 | NUR ---
PT IN BED WITH EYES CLOSED. BED BATH GIVEN. PT POSTIONED ONTO LEFT SIDE WITH PILLOWS. CALL LIGHT IN REACH.. ORAL CARE DONE. WARM BLANKETS GIVEN. NO FURTHER NEEDS AT THIS TIME.
--- NOTE | 2021-12-22 10:19 | NUR ---
PT LAYING IN BED, UNRESPONSIVE. HAD PRAYER FOR PT AND WILL FOLLOW
--- NOTE | 2021-12-22 10:25 | NUR ---
Rounded on patient who is noted to be rigid in tense, gross movement in extremities. Temp 100.7 R. RR 40. Shallow breathing noted. MD and barrel builder notified. IVF infusing WNL. Repositioned in bed with pillows. Oral care done.
--- NOTE | 2021-12-22 12:00 | NUR ---
SS insulin held for CBG, verified with Dr Ellison to hold this dose as patient is not tolerating any PO intake. Pt repositioned, oral care complete.
--- NOTE | 2021-12-22 12:30 | NUR ---
Spoke with pts . She is considering pt going home on comfort care. She will discuss with Dr. Ellison.
--- NOTE | 2021-12-22 14:00 | NUR ---
PT REPOSITIONED IN BED. BRIEF CHANGED. TOWELS REPLACED IN HANDS AND VITALS DONE. NO FURTHER NEEDS AT THIS TIME.
--- NOTE | 2021-12-22 17:23 | NUR ---
SS insulin provided and verified with Dr Ellison to administer. Patient is unable to drink or swallow. PO meds held. Pt has 100.7 rectal temperature, rectal suppository tylenol administered. Pt rigid, tense, shaking extremities. Wash cloths in hands to legal receptionist. Cool cloth to forehead, oral care completed. This Rn remains at bedside with patient. Pt not verbally responsive, occasionally makes eye contact and teen counselor hands with touch. Appears to be consolable with touch/talk.
--- NOTE | 2021-12-22 19:30 | NUR ---
SHIFT REPORT GIVEN TO THIS RN BY TYE RUSSELL. PATIENT RESTING WITH EYES CLOSED AND MOUTH WIDE OPEN. PATIENT HAVING PERIODIC TREMORS THROUGH HIS BODY. TYE RUSSELL GAVE THIS RN REPORT AND INFORMED ME IS AWARE OF THIS. NO NOTED CARE NEEDS NOTED AT THIS TIME. THIS RN WILLBE BACK FOR EVENING ASSESSMENT SHORTLY. CALL LIGHT IN REACH AND PATIETN CAN BE SEEN FROM THE NURSES STATION.
--- NOTE | 2021-12-22 19:46 | NUR ---
ASSISTED PT. TO COMFORTABLE POSITION IN BED.
--- NOTE | 2021-12-22 20:35 | NUR ---
PATIENT HAVING FULL BODY SHAKES PERIODICALLY, B/P IS ELEVATED, HR IS ELEVATED, RESPITORY RATE ELEVATED AND PATIENT MONTES A FEVER PER RECTAL TEMP. THIS RN AND SHARLENE RN IN THE ROOM REPOSITIONING PATIENT AND HE GRIMACES WHENEVER HE IS TOUCHED. PATIENT REPOSTIONED TO HIS RIGHT SIDE WITH PILLOWS, INCONTINENCE IN ATTENDS CLEANED UP AND NEW ATTENDS IN PLACE. PATIENT IS NONVERBAL AT THIS TIME, BUT LOOKS UNCOMFORTABLE, BODY VERY TENSE AND STIFF WITH CLENCHED FISTS. BED ALARM IS ON AND CALL LIGHT IN REACH. THIS RN GOING TO CALL .
--- NOTE | 2021-12-22 20:44 | NUR ---
THIS RN CALLED ABOUT PATIENT'S ELEVATED HEART AND RESPITORY RATE, WELL ASTHE 100.8 TEMP AND ELEVATED DBP OF 90. INFORMED MD OF PERIODIC FULL BODY SPASMS AND FACIAL GRIMACING WHEN TOUCHED OR MOVED. DR.RASCH ZHU SHE WAS GOING OT MAKE A CALL AND PUT SOME ORDERS IN. THIS RN AWAITING ORDERS.
--- NOTE | 2021-12-22 22:08 | NUR ---
NEW ORDERS WERE WRITTEN BY AND 5MG SIVP LOPRESSOR GIVEN TO TRY AND BRING DOWN PATIENT'S HR AND B/P. 25MCG OF FENTANYL SIVP GIVEN FOR DISCOMFORT. PRE MED VITALS RECORDED. THIS RN NEEDING ASSISTANCE TO GIVE TYLENOL SUPPOSITIORY AND WILL BE BACK WITH HELP. CALL LIGHT IN REACH AND BED ALARM IS ON.
--- NOTE | 2021-12-22 22:30 | NUR ---
THIS RN AND LESLEE BOWMAN IN AND TURNED PATIENT TO HIS LEFT SIDE AND A TYLENOL SUPPOSITORY WAS GIVEN FOR FEVER. NEW ATTENDS IN PLACE THERE WAS SOME INCONTINCE OF URINE. PATIENT BODY IS MORE RELAXED AFTER THE FENTANYL AND LOPRESSOR. BED ALARM IS ON AND CALL LIGHT IN REACH. LIGHTS TURNED DOWN TO TRY AND LET PATIENT SLEEP.
--- NOTE | 2021-12-23 01:50 | NUR ---
BP AND PULSE TAKEN FOR NURSE. INCONTINENT CARE DONE. ORAL CARE FOR DRY MOUTH. CALL LIGHT LEFT WITHIN REACH. NO OTHER IMMEDIATE NEEDS AT THIS TIME.
--- NOTE | 2021-12-23 02:00 | NUR ---
THIS RN WENT IN TO CHECK N PATIENT. PATIENT HAVING FULL BODY SHAKES AGAIN SPORADICALLY, FISTS ARE CLENCHED, BODY IS STIFF, AND PATIENT HAS A FACIAL GRIMACE WHEN TOUCHED. 25MCG OF IV FENTANYL REPEATED AAND 5MG SIVP LOPRESSOR GIVEN. PATIENT TURNED BACK TO HIS RIGHT SIDE. ORAL CARE DONE. CALL LIGHT IN REACH AND BED ALARM IS ON. NO OTHER CARE NEEDS NOTED AT THIS TIME.
--- NOTE | 2021-12-23 03:48 | NUR ---
PATIENT IS RESTING A LITTLE EASIER. PATIENT NOT HAVING THE BODY SHAKES OFTEN AND ARMS AND FISTS LESS RIGID AND CLENCHED. NO FACIAL GRIMACE WHEN TOUCHED, BUT STILL NONVERBAL. CALL LIGHT IN REACH AND BED ALARM IS ON.
--- NOTE | 2021-12-23 06:01 | NUR ---
THIS RN BACK IN TO CHECK ON PATIENT. PATIENT HAVE THE FULL BODY SHAKES AGAIN, FACIAL GRIMACE, TENSE MUSCLES AND CLENCHED FISTS. PATIENT TURNED TO HIS LEFT SIDE AND 25MCG SIVP FENTANYL GIVEN. ATTENDS CHANGED. LAB HERE TO DRAW AM LABS. BED ALARM IS ON AND CALL LIGHT IN REACH.
--- NOTE | 2021-12-23 07:11 | NUR ---
report recieved from night patrol inspector RN, pt awake in bed, repositoned with help of becky rn, no needs at the moment, bed alarm on, call light within reach
--- NOTE | 2021-12-23 09:24 | NUR ---
VITALS AND I&OS CHARTED. PATIENT INCONTINENT OF URINE, NE BRIEF PROVIDED. DRAWSHEET AND PILLOW CASES CHANGED. PATIENT REPOSITIONED IN BED. FACE AND HANDS WASHED.BED ALARM FOR SAFETY
--- NOTE | 2021-12-23 09:30 | NUR ---
RN IN ROOM TO DO MORNING ASSESSMENT AND MEDICATIONS, PT AWAKE NON VERBAL, RESPONDS TO PAIN, ORAL CARES DONE OFFERED TO DRINK PROTIEN SHAKE PT NOT SWALLOWING NOT TAKING HIS ORAL PILLS, INCONTINENT, IV FLUIDS SWICTHED TO LR PER ORDERS NO OTHER NEEDS
--- NOTE | 2021-12-23 12:24 | NUR ---
PATIENT INCONTINENT OF URINE. CLEAN BRIEF PROVIDED. PATIENT REPOSITIONED AND TURNED ONTO RIGHT SIDE. BED ALARM ON FOR SAFETY. THIS DIRECTOR ONLINE MARKETING ATTEMPTED TO FEED PATIENT SOME OF HIS LUNCH SHAKE. PATEINT UNABLE TO USE STRAW. SMALL AMOUNTS OF SHAKE PLACED ON TONGUE, PATIENT RESPONDING VERY LITTLE TO THIS.CALL LIGHT IN REACH, NO OTHER NEEDS AT THIS TIME
--- NOTE | 2021-12-23 14:48 | NUR ---
RN IN ROOM TO DO LOPRESSOR, AND ASSESSMENT, PT ASLEEP RESITNG IN BED NO DISTRESS NOTED ORAL CARES DONE
--- NOTE | 2021-12-23 15:21 | NUR ---
THIS CARTRIDGE ASSEMBLING MACHINE ADJUSTER SHAVED PATIENTS FACE. WASHED HANDS AND FACE.
--- NOTE | 2021-12-23 16:21 | NUR ---
Received a text from [facility] asking if we still plan on sending this pt for rehab. UPdated he has declined. Asked if they would be able to take this pt as comfort care if this is what the decides. Asked if they would be able to take this pt tomorrow. Notified they can do comfort care as he has two insurances for around 1 week on comfort care, if pt does not decline they will need to apply for medicaid as cost of [facility] would be out of pocket. Called and updated his , Guera. She is very tearful, would like pt go to [facility] if possible. I will update Dr. Ellison. She is off the floor, will leave a note.
--- NOTE | 2021-12-23 16:36 | NUR ---
rn in room to start iv abx, oral cares done pt resting in bed does not appear to be in distress
--- NOTE | 2021-12-23 16:38 | NUR ---
Notified by [facility], their DNS has gone home. They will let me know tomorrow if they can accept in the afternoon.
--- NOTE | 2021-12-23 17:56 | NUR ---
RN IN ROOM TO DO INSULIN, 1UNIT GIVEN, ABDOULAYE CARES DONE AND COMPLETE LINEN CHANGE, PT TOLERATED WELL.
--- NOTE | 2021-12-23 18:22 | NUR ---
RN IN ROOM TO DO ABDOULAYE CARE AND TURN PT, PT RESTING IN BED NO NEEDS AT THE MOMENT
--- NOTE | 2021-12-23 21:06 | NUR ---
ASSESSMENT COMPLETE, PO MEDICATION HELD PER CLINICAL JUDGEMENT, pt UNABLE TO SWALLOW PER SHIFT REPORT. DR SMITH AWARE OF HOLDING OF MEDICATION, SEE EMAR. IV SITE WNL, FLUSHES EASILY. IV FLUIDS INFUSING DIRECTED, SEE EMAR. pt REMAINS NONVERBAL, BUT OPENS EYES WITH OUTSIDE MACHINIST SUPERVISOR. RR RECENTLY TAKEN BY GM, NOTED TO BE ELEVATED IN 30, pt INCONTINENT OF BOTH URINE AND STOOL, ABDOULAYE CARE DONE AND DRY ATTENDS IN PLACE. pt RESTING ON HIS RIGHT SIDE, PILLOW UNDER LEFT. ALLEVYN TO COCCYX, UNABLE TO VISUALIZE D/T DRESSING. pt RESTING IN BED, RR NOW IMPROVED, NOW 24-25. ASPIRATION PRECAUTIOSN IN PLACE, HOB ELEVATED. NO FURTHER NEEDS, CALL LIGHT IN REACHA ND BED ALARM ON.
--- NOTE | 2021-12-23 21:25 | NUR ---
RN was in the room. Patient was repositioned by floating a pillow under his side. Call light is in reach. RN was notified about blood sugar and vitals.
--- NOTE | 2021-12-23 23:25 | NUR ---
NEW ORDERS FROM DR SMITH ACKNOWLEDGED IN EMAR, FELI FROM TELEPHARMACY QUESTIONING FENTANYL PATCH, DISCUSSED WITH DR SMITH. PER DR SMITH OKAY TO CONTINUE WITH POC. UPDATED MD SMITH AND TYE PEREZ TO PLACE FENTANYL PATCH AND GIVE PRN PAIN MEDICATION AT THIS TIME.
--- NOTE | 2021-12-23 23:39 | NUR ---
PAIN MEDS GIVEN PER DEC, FENTANYL PATCH APPLIED TO LEFT SHOULDER, PT BREIF CHANGED AND PT REPOSITIONED TO LEFT SIDE WITH PIILOWS FOR SUPPORT. BED ALARM ON AND BED IN LOWEST POSITION
--- NOTE | 2021-12-24 00:37 | NUR ---
ROUNDED ON pt, pt RESTING IN BED WITH EYES CLOSED. pt RESTING ON HIS RIGHT SIDE, RR MID 20'S. NO DISTRESS NOTED, WILL MONITOR FOR CHANGES. pt APPEARS RELAXED AND COMOFRTABLE AT THIS TIME. CALL LIGHT IN REACH AND BED ALARM ON FOR SAFETY.
--- NOTE | 2021-12-24 02:37 | NUR ---
pt rr 35-40. medicated with prn fentanyl per mar
--- NOTE | 2021-12-24 03:45 | NUR ---
WITH ASSISTANCE FROM SECOND MACHINE GREASER, PT CHECKED AND CHANGED ATTENDS DUE TO INCONT OF URINE, PT NOW RESTING ON BACK, PILLOW PROVIDED UNDER BOTH LEGS, BED ALARM IS SET, NO FURTHER NEEDS AT THIS TIME
--- NOTE | 2021-12-24 04:00 | NUR ---
pt RESTING IN BED, ORAL CARE DONE. WITH HELP FROM LESLEE QUICK, pt BOOSTED IN BED, ASPIRATION PRECAUTIONS IN PLACE. BED ALARM RESUMED. IV SITE WNL, FLUIDS INFUSING DIRECTED. CALL LIGHT IN REACH. pt REMAINS NONVERBAL.
--- NOTE | 2021-12-24 04:50 | NUR ---
Patient's respirations were 32. Vitals are complete. Call light is in reach.
--- NOTE | 2021-12-24 05:12 | NUR ---
pt INCONT OF STOOL, WITH HELP FROM LESLEE BOWMAN, ABDOULAYE CARE DONE AND DRY ATTENDS IN PLACE. pt BOOSTED IN BED, BILATERAL HIPS FLOATED. BED ALARM RESUMED. ORAL CARE ATTEMPTED AND SOMEWHAT COMPLETED, pt FOLLOWS DIRECTIONS POORLY TO OPEN MOUTH. RIGHT EYE REMAINS CLOSED FOR MAJORITY OF SHIFT, LEFT EYE OPENS SPONTANEOUSLY. NEW BAG IV FLUIDS HUNG AND INFUSING DIRECTED, IV SITE WNL. NO FURTHER NEEDS, CALL LIGHT IN REACH.
--- NOTE | 2021-12-24 07:15 | NUR ---
bedside report recieved from hourly shift rn, pt resting in bed does not appear to be in pain or distress, 12mcg fentanyl pacth on L shoulder checked
--- NOTE | 2021-12-24 08:40 | NUR ---
RN IN ROOM TO DO MORNING ASSESMENT AND MEDICATIONS, PT RESTING IN BED VITAL SIGNS DONE , MEDICATIONS ADMINISTERED PT NONCOPPERATIVE WITH ASSESSMENT, NONVERBAL NOT ABLE TO SWALLOW MEDICATIONS, IV NOTED TO BE LEAKING DR SMITH NOTIFEID OF IV GOING BAD AND NEEDING TO PLACE A NEW ONE PER DR SMITH HOLD OFF FOR NOW UNTIL WE GET UPDATE ON PLACEMENT
--- NOTE | 2021-12-24 10:00 | NUR ---
RN IN ROOM TO ROUND ON PT, PT DAUGHTER RA IN ROOM UPDATED ON PT CONDITION, ORDERS TO TRANSITION TO COMFORT CARES, DENIES ANY NEEDS AT THE MOMENT.
--- NOTE | 2021-12-24 10:02 | NUR ---
Notified by Claudia [facility] will accept this pt as comfort care after noon. Let her know I will get orders.
--- NOTE | 2021-12-24 11:10 | NUR ---
RN IN ROOM TO ROUND ON PT RR EVELATED AND IS GRABBING AT OXYMASK, PRN ORAL MORPHINE GIVEN DAUGHTER RA REMAINS AT BEDSIDE
--- NOTE | 2021-12-24 12:00 | NUR ---
RN IN ROOM ROUNDING ON PT RESTING IN BED, RR EVEN AND NON LABORED
[2021-12-24] MEDS ORDERED: ATROPINE SULFATE2 ML SL (12:34)
[2021-12-24] MEDS ORDERED: ONDANSETRON ODT4 MG SL (12:34)
[2021-12-24] MEDS ORDERED: FENTANYL1 EAC4 TD (12:34)
[2021-12-24] MEDS ORDERED: MORPHINE S100 MG/5 M SL (12:34)
[2021-12-24] MEDS ORDERED: ACETAMINOPHEN650 MG PR (12:34)
[2021-12-24] MEDS ORDERED: ARTIFICIAL TEAR15 M3 OU (12:34)
--- NOTE | 2021-12-24 12:36 | NUR ---
Orders completed and orders, covid test,PASSR, and POLST faxed to Claudia at [facility]. Notified by Dr. Ellison of pts Defib/pacemaker. I will contact rep and request it be turned off. EMS transport scheduled for 1:30-2pm and [facility] notified. NOtified by dr. Ellison she is unsure of what MS hernandez to order. Called and spoke with Lang, Returned Materials Inspector. He states they use a mail order. I will request pharmacy fill the morphine gtts. Spoke with Dr. Ellison and pharmacy and they will fill a 30 cc bottle of 20 mg/ml. Notified [facility]. Spoke with Claudia and asked if they have a magnet to place on pts Defib if pt passes. She states they do not. Let them know I have a call into the [facility] rep to shut the defib. off.
--- NOTE | 2021-12-24 13:10 | NUR ---
RN IN ROOM TO ROUND ON PT, ABDOULAYE CARES DONE , BREIF CHANGED AND NEW GOWN, IV REMOVED. RESTING COMFORTABLE NO SIGNS OF DISTRESS
--- NOTE | 2021-12-24 14:00 | NUR ---
REPORT CALLED TO MOISE AT [facility], REPORT GIVEN TO EMS REPORTED PT HAS A FENTANYL PACTH ON l SHOULDER
--- NOTE | 2021-12-24 14:10 | NUR ---
Call from Clint at [facility]. He will contact [facility]. Gave him Guille's cell phone number and texted Lang he would be calling.
== END 2021-12-24 14:00 | disposition home or self-care (01) | DRG 308 ==
LOC: ED 13:41 → CCU 18:22 → MS 12-14 18:30
PROVIDERS: ADMIT Internal Medicine; ATTEND Internal Medicine
DX: I48.91 Unspecified atrial fibrillation (principal); U07.1 COVID-19; J15.6 Pneumonia due to other Gram-negative bacteria; I50.23 Acute on chronic systolic (congestive) heart failure; J96.01 Acute respiratory failure with hypoxia; G93.41 Metabolic encephalopathy; N30.00 Acute cystitis without hematuria; N17.9 Acute kidney failure, unspecified; Z66 Do not resuscitate; Z51.5 Encounter for palliative care; B96.20 Unspecified Escherichia coli [E. coli] as the cause of diseases classified elsewhere; I25.10 Atherosclerotic heart disease of native coronary artery without angina pectoris; C67.9 Malignant neoplasm of bladder, unspecified; E78.5 Hyperlipidemia, unspecified; I11.0 Hypertensive heart disease with heart failure; E11.9 Type 2 diabetes mellitus without complications; I25.2 Old myocardial infarction; Z95.5 Presence of coronary angioplasty implant and graft; Z90.49 Acquired absence of other specified parts of digestive tract; Z95.0 Presence of cardiac pacemaker; Z91.14 Patient's other noncompliance with medication regimen; Z88.0 Allergy status to penicillin; Z91.018 Allergy to other foods
CPT/HCPCS: 36415; 51701; 51702; 71045; 71250; 74176; 80048; 80053; 80076; 80162; 80202; 80503; 81001; 82140; 83735; 83880; 84100; 85007; 85025; 86431; 87040; 87077; 87088; 87103; 87186; 87327; 93306; 94660; 97110; 97116; 97161; 97530; 99285-25; A9270; C9113; J0692; J0696; J1160; J1450; J1650; J1720; J1815; J1940; J1956; J2060; J2270; J2920; J3010; J3370; J3475; J3480; J7030; J7060; J7121; U0003